=== PATIENT | female | born 1940 | race Caucasian/White ===

== ENCOUNTER → 2016-11-25 | Day surgery (SDC) | payer OTHER ==
[~2016-11-25] VITALS: Ht 157.5 cm; Wt 70.0 kg
[~2016-11-25] MED LIST: ALBUAER2 INH; AMIO200T4 PO; ASPI81TA28 PO; BACITRACIN 50000 UNIT VIAL ONE; BUPIVACAINE 0.5 % 5 MG/1 ML MPF 30ML VIAL ONE; CLINDAMYCIN 600 MG/54 ML D5W IV ONE; CLINDAMYCIN 600 MG/54 ML D5W IV SCH; COEN1CAP46 PO; DIGO0.2576 PO; DOXY100C2 PO; FENTANYL CITRATE INJ 50 MCG/1 ML 2 ML VIAL ONE; FLUO0.05 TOP; GLC/500 PO; GLIM4TAB2 PO; LIDOCAINE HCL 1% 20 ML VIAL ONE; LISI-461 PO; LOSA1TAB38 PO; METO25TA56 PO; MIDAZOLAM HCL 5 MG/ML 1 ML VIAL ONE; MULT-922 PO; NTRGSL/4 UT; OSEL75CA12 PO; POLY99.02 OP; SOTA160T PO; VNTHFA/IN INH; WARF2TAB8 PO; WARF3TAB6 PO
[2016-11-25 10:48] VITALS: BP 150/77; PULSE 77; TEMP 36.8; O2SAT 98; Ht 157.5 cm; Wt 70.0 kg
--- NOTE | 2016-11-25 13:40 | History & Physical Bridge Note ---
H&P Re-Evaluation Bridge Note: I have examined the patient, reviewed the History & Physical and in the interval since the performance of the History & Physical I have noted the following changes of clinical significance: No changes noted
--- NOTE | 2016-11-25 13:41 | Procedure Note ---
Pre-Mod Sedation Assessment General Date of Moderate Sedation: Nov 25, 2016. Vital Signs: Vital Signs Past 12 Hours Date Time Temp Pulse Resp B/P Pulse Ox O2 Delivery O2 Flow Rate FiO2 11/25/16 10:48 36.8 77 20 150/77 98 Room Air Review Cardiovascular: regular rate, rhythm Abdomen: soft Lungs: lungs clear Airway Class: II Pre-Sedation Airway Assessment Oral Cavity: Dentures Able to Visualize Vocal Cords: No Short Thick Neck: No Hx of Sleep Apnea: No Smoking Status: Never Smoker Mallampati Classification: Class II ASA Classification: Class I Procedure Planning Contraindications-for Mod Sed: None Yes Notes The planned sedation has been discussed with the patient and consent obtained. I have identified the patient, determined the appropriateness of sedation and have assessed the patient immediately prior to the procedure. All medicine(s) and interventions are by my order.
--- NOTE | 2016-11-25 14:42 | Procedure Note ---
Post-Mod Sedation Assessment General Date of Moderate Sedation Nov 25, 2016. Vital Signs: Vital Signs Past 12 Hours Date Time Temp Pulse Resp B/P Pulse Ox O2 Delivery O2 Flow Rate FiO2 11/25/16 10:48 36.8 77 20 150/77 98 Room Air Review - Discharge Criteria Vital Signs Stable: Yes Alert/Oriented/Conversant: Yes Returned to Baseline Mental St: Yes Nausea Absent/Minimal: Yes Pain/Discomfort/Absent/Minimal: Yes Normal/Baseline Respirations: Yes Active Bleeding?: No Pt Received D/C Instructions: N/A Prescriptions Given: None Specific Proced. D/C Criteria Distal Pulses Present (Cardiac: N/A Groin site assessed-Card Cath: N/A Voided Prior To Discharge: N/A Discharged Patients Adult Escort/Transportation: N/A
--- NOTE | 2016-11-25 14:44 | [facility] Post Operative Brief Note ---
Immediate Operative Summary Operative Date Nov 25, 2016. Pre-Operative Diagnosis ppm at JOAQUIN, tbs Post-Operative Diagnosis same Procedure(s) Performed dual chamber permament pacemaker rate responsive generator change Surgeon veronica baca Director Of Rooms Surgeon(s) none Estimated Blood Loss <5cc Findings none Fluids (cc crystalloids) 75cc Specimens none Drains none Anesthesia 3mg versed and 25mcg fentanyl Complication(s) None Disposition asu
--- NOTE | 2016-11-25 14:47 | Discharge Instructions ---
Discharge Instructions Visit Reason for Visit: Sinus Node Dysfunction Discharge Discharge Diagnosis / Problem: sss, ppm at [facility]gar Discharge Goals Goal(s): Improve function Activity Recommendations Activity Limitations: as noted below (no heavy lifting with the left arm for 2 weeks (>10 pounds)) Shower/Bathe: tomorrow Driving or Machine Use: resume 1 day after discharge Anesthesia . Post Anesthesia Instructions: If you have had General Anesthesia or IV Sedation: * Do not drive today. * Resume driving when surgeon permits. * Do not make important decisions or sign legal documents today. * Call surgeon for: 1. Temperature elevations greater than 101 degrees F. 2. Uncontrollable pain. 3. Excessive bleeding. 4. Persistent nausea and vomiting. 5. Medication intolerance (nausea, vomiting or rash). * For nausea and vomiting use only clear liquids such as: tea, soda, bouillon until nausea subsides, then gradually increase diet as tolerated. * If you have any concerns or questions, call your surgeon's office. If physician is unavailable and it is an emergency, call 911 or go to the nearest emergency room. . Diet Recommendations Recommended Home Diet: resume previous diet Procedures Procedures Performed: dual chamber permament pacemaker rate responsive generator change Pending Studies Studies pending at discharge: no Medical Emergencies . Who to Call and When: Medical Emergencies: If at any time you feel your situation is an emergency, please call 911 immediately. . Non-Emergent Contact Non-Emergency issues call your: Farm Tractor Operator . . "Provider Documentation" section prepared by Marci Deluca.
[2016-11-25 14:55] VITALS: BP 122/63; PULSE 77; TEMP 36.7; O2SAT 91
[2016-11-25 15:11] VITALS: BP 144/72; PULSE 78; TEMP 36.7; O2SAT 93
[2016-11-25 15:37] VITALS: BP 122/53; PULSE 74; TEMP 36.6; O2SAT 94
--- NOTE | 2016-11-25 15:38 | OPERATIVE REPORT ---
DATE OF OPERATION: 11/25/2016 PREOPERATIVE DIAGNOSES: Sick sinus syndrome and pacemaker at elective replacement indicator. POSTOPERATIVE DIAGNOSES: Same. PROCEDURE: Dual-chamber rate responsive permanent pacemaker generator change. SURGEON: Dr. Marci Deluca. REVENUE CYCLE MANAGER: None. ANESTHESIA: Monitored conscious sedation, total of 3 mg of Versed, 25 mcg of fentanyl. Start time 1405, end time 1432. BLOOD LOSS: Less than 5 mL. COMPLICATIONS: None. CONDITION: Stable. URINE OUTPUT: Not applicable. SPECIMENS: None. FINDINGS: None. DRAINS: None. IV FLUIDS: 75 mL. HISTORY OF PRESENT ILLNESS: This is a 76-year-old female who has a history of sick sinus syndrome, status post permanent pacemaker back in 2006, paroxysmal atrial fibrillation, on sotalol and Coumadin, but having refractory AFib on prior pacemaker checks; coronary artery disease, status post CABG in 2001 with a MARIE to LAD and SVG to circ, cardiac catheterization in January 2012, grafts were patent; diabetes, pulmonary hypertension, hyperlipidemia. On her most recent pacemaker check, she was found to hit JOAQUIN and was recommended a generator change. CONSENT: Consent was obtained prior to the patient going into the electrophysiology lab. The patient was informed of risks, benefits, alternatives to the procedure. Risks include but not limited to sudden cardiac , cardiac arrhythmias, cerebrovascular accident, myocardial infarction, injury to the blood vessels, bleeding and infection. The patient understood these risks and agreed to the procedure as planned. Informed consent was obtained. DESCRIPTION OF THE PROCEDURE: The patient was brought into the electrophysiology lab in a fasting state. She was connected to continuous monitoring engineer. A time-out was performed to ensure patient's identity and procedure correctly. The patient received prophylactic antibiotics prior to incision. She was prepped and draped over the left infraclavicular space in normal surgical standard fashion. Moderate conscious sedation was given throughout the procedure for patient's comfort level and universal precautions were maintained throughout the procedure. 3 mL of 1% lidocaine, bupivacaine mixture were given over the prior surgical incision. Incision was made over the prior surgical incision. Blunt dissection was performed down to identify to the prior pulse generator. The capsule was then disrupted using iris scissors. The pulse generator was freed from the capsule and removed from the pocket. The pulse generator was detached from the leads and the leads were tested intraoperatively, see below. The capsule was disrupted inferiorly and caudally to allow for new blood flow and then the pocket was flushed with copious amounts of bacitracin saline wash and inspected for hemostasis. The new pulse generator was attached to the leads making sure that the pins were in appropriate position, passed the set screws and the set screws were all tightened. The pulse generator was then placed in the pocket, making sure that the leads were lying flat beneath the device. Lenora Stat was used in the pocket to prevent any further oozing as patient is on aspirin and Coumadin. The incision was closed in a 3-layer fashion, 2-0 Vicryl interrupted suture followed by a 3-0 Vicryl interrupted suture followed by a 4-0 Monocryl running stitch and Dermabond was applied. EQUIPMENT: 1. Explanted generator is a N Rhythm [id number] serial #[id number], implanted 10/03/2007. Battery voltage 2.81. Hit JOAQUIN on 10/16/2016. 2. The new pulse generator is a Shuropody Advisa DR LIZZETTE Ramos [id number], serial # [id number]. 3. Right atrial lead, model #5076-45, serial number [id number]. 4. Right ventricular lead model #4092-52, serial number [id number]. Both were implanted 10/03/2007. INTRAOPERATIVE TESTING: Right atrial lead: P-wave 6 millivolts, impedance 535 ohms, threshold 0.6 volts at 0.9 milliamps. Right ventricular lead: R-wave waves 19 millivolts, impedance 579 ohms, threshold 0.9 volts at 1.6 milliamps. FINAL MEASUREMENTS THROUGH THE DEVICE: Right atrial lead: 6.6 millivolts, impedance 494 ohms, threshold 0.75 volts at 0.4 milliseconds. Right ventricular lead: R-wave 20 millivolts, impedance 456 ohms, threshold 1 volt at 0.4 milliseconds. FINAL PARAMETERS: MVP-R 60/130. Right atrial amplitude 1.5 volts, pulse width 0.4 milliseconds, sensitivity 0.3 millivolts. Right ventricular lead amplitude 2 volts, pulse width 0.4 milliseconds, sensitivity 1.2 millivolts, and atrial therapies were turned on. CONCLUSION: Successful rate responsive dual-chamber permanent pacemaker generator change secondary to sick sinus syndrome. PLAN: Monitor patient post-sedation. She can stop her Lasix. She should continue her amiodarone load and then decrease to 200 mg a day in 2 weeks. She can continue her Coumadin. She should have thyroid and liver function tests done in January after she has been on the amiodarone for a couple of months. She can shower in a day. She should let water run over the incision, do not scrub it and she should not lift more than 10 pounds with the left arm for 2 weeks. She should follow up in our [facility] office in 7-10 days for device and wound check. I attest to the content of the Intraoperative Record and any orders documented therein. Any exceptio ns are noted below.
[2016-11-25 16:09] VITALS: BP 128/55; PULSE 77; TEMP 36.7; O2SAT 95
== END | disposition home or self-care (01) ==
LOC: C.ACU 10:16
PROVIDERS: ATTEND Internal Medicine
DX: I49.5 Sick sinus syndrome (principal); I48.0 Paroxysmal atrial fibrillation; I10 Essential (primary) hypertension; I25.10 Atherosclerotic heart disease of native coronary artery without angina pectoris; E11.9 Type 2 diabetes mellitus without complications; I27.2 Other secondary pulmonary hypertension; E78.5 Hyperlipidemia, unspecified; E55.9 Vitamin D deficiency, unspecified; Z95.0 Presence of cardiac pacemaker; Z79.01 Long term (current) use of anticoagulants; Z95.1 Presence of aortocoronary bypass graft; Z79.899 Other long term (current) drug therapy

== ENCOUNTER 2016-12-18 18:10 | Emergency (ER) | payer OTHER ==
[~2016-12-18] VITALS: Ht 157.5 cm; Wt 70.2 kg
[~2016-12-18 18:10] MED LIST changes: -AMIO200T4 PO; -BACITRACIN 50000 UNIT VIAL ONE; -BUPIVACAINE 0.5 % 5 MG/1 ML MPF 30ML VIAL ONE; -CLINDAMYCIN 600 MG/54 ML D5W IV ONE; -CLINDAMYCIN 600 MG/54 ML D5W IV SCH; -DOXY100C2 PO; -FENTANYL CITRATE INJ 50 MCG/1 ML 2 ML VIAL ONE; -LIDOCAINE HCL 1% 20 ML VIAL ONE; -LISI-461 PO; -LOSA1TAB38 PO; -MIDAZOLAM HCL 5 MG/ML 1 ML VIAL ONE; -OSEL75CA12 PO; -SOTA160T PO; -VNTHFA/IN INH
[2016-12-18 18:17] VITALS: TEMP 36.4; Ht 157.5 cm; Wt 70.2 kg
[2016-12-18 20:03] LABS: BASO % 0.5 %; BASO ABS # 0.04 K/uL (0-0.2); COMPLETE YES; EOS % 1.6 %; HEMATOCRIT 39.7 % (37-47); IG% 0.1 %; LYMPH % 35.7 %; LYMPH ABS # 2.66 K/uL (1.2-3.4); MEAN CELL VOLUME 85.4 fL (80-100); MEAN CORPUSCULAR HEMOGLOBIN 29.7 pg (25-34); MEAN CORPUSCULAR HGB CONC 34.8 g/dl (32-36); MEAN PLATELET VOLUME 10.4 fL (7.4-10.4); MONO % 8.5 %; NEUT % 53.6 %; PLATELET COUNT 229 K/uL (130-400); RED BLOOD COUNT 4.65 M/uL (4.2-5.4); WHITE BLOOD COUNT 7.45 K/uL (4.8-10.8)
[2016-12-18] MEDS ORDERED: AMIO200T4 PO (20:06)
[2016-12-18] MEDS ORDERED: LOSA1TAB38 PO (20:06)
[2016-12-18 20:11] LABS: INR 2.1 (0.9-1.1); PARTIAL THROMBOPLASTIN RATIO 1.3
[2016-12-18 20:20] LABS: CREATININE 0.95 mg/dl (0.60-1.20); POTASSIUM 3.9 mmol/L (3.5-5.1)
[2016-12-18 20:23] LABS: ALB/GLOB RATIO 0.9 (0.9-2)
[2016-12-18 20:55] VITALS: BP 128/79
[2016-12-18 21:46] VITALS: PULSE 74; O2SAT 98
--- NOTE | 2016-12-18 23:25 | EMERGENCY ROOM VISIT NOTE ---
History Report prepared by Salvador: Elvira Marks Under the Supervision of: Dr. Keith Celeste M.D. First contact with patient: 19:14 Chief Complaint: WOUND DEHISCENCE Stated Complaint: S/P PACEMAKER CHANGE, SITE IS BLEEDING Nursing Triage Summary: Patient had recent pacemaker placed, incision is leaking dark red blood, patient has multipple soaked dressings, sterile dressing applied with pight pressure. History of Present Illness The patient is a 76 year old female who presents to the Emergency Room with complaints of constant bleeding from surgical site beginning 2 hours prior to arrival. Per the patient and her , the patient had pacemaker placed on November 25, 2016 at [facility]. The patient is experiencing bleeding from the incision and also swelling to the left upper chest around the surgical site. She is currently on Coumadin and Warfarin. She does note that she recently had medication changes due to having side effects. Pt denies LOC, headache, fevers, chills, diaphoresis, visual changes, neck pain, chest pain, breathing difficulties, nausea, vomiting, abdominal pain, back pain, melena, hematochezia, urinary symptoms, numbness, weakness, lymphadenopathy, rash, or other complaints. Source of History: patient Onset: 2 hours SHIP SCALER Position: other (surgical site) Quality: other (bleeding) Timing: constant Associated Symptoms: No LOC, No abdominal pain, No headache, No nausea, No vomiting Review of Systems See HPI for pertinent positives and negatives. A total of ten systems were reviewed and were otherwise negative. Past Medical & Surgical Medical Problems: (1) CAD (coronary artery disease) (2) DM type 2 (diabetes mellitus, type 2) (3) HTN (hypertension) (4) Hyperlipidemia (5) Paroxysmal atrial fibrillation (6) Tachy-aylin syndrome Surgical Problems: (1) H/O: hysterectomy (2) Hx of appendectomy (3) Hx of CABG (4) s/p pacemaker insertion Family History Diabetes mellitus AUNT UNCLE Gallbladder disease Heart disease MOTHER Hypertension Social History Smoking Status: Never Smoker Alcohol Use: occasionally Drug Use: none Marital Status: Housing Status: lives with significant other Occupation Status: retired Current/Historical Medications Scheduled Amiodarone Hcl (Cordarone), 200 MG PO QAM Aspirin (Aspirin Ec), 81 MG PO QAM Glimepiride (Glimepiride), 1 TAB PO UD Losartan Potassium (Cozaar), 100 MG PO DAILY Metformin Hcl (Glucophage), 500 MG PO BIDM Metoprolol Tartrate (Lopressor) (Lopressor), 25 MG PO BID Nitroglycerin (Nitrostat), 0.4 MG UT PRN Warfarin Sod (Jantoven), 2 MG PO 5XWK Warfarin Sod (Jantoven), 3 MG PO 2XWK Scheduled PRN Albuterol (Ventolin Hfa), 1-2 PUFFS INH Q4 PRN for SOB/Wheezing Allergies Coded Allergies: Cefazolin (Verified Allergy, Unknown, CEPHALEXIN-PT DOESN'T REMEMBER WHAT HAPPENED, 12/18/16) Tetanus Toxoid (Verified Allergy, Unknown, LOCAL REACTION/FEVER, 12/18/16) Oxycodone (Verified Adverse Reaction, Unknown, NAUSEA/STOMACH PAINS, ) Physical Exam Vital Signs Date Time Temp Pulse Resp B/P Pulse Ox O2 Delivery O2 Flow Rate FiO2 12/18/16 21:46 74 17 98 12/18/16 20:55 72 128/79 96 Room Air 12/18/16 18:17 36.4 63 18 193/82 97 Room Air Physical Exam GENERAL: Awake, alert, well-appearing, in no distress HENT: Normocephalic, atraumatic. Oropharynx unremarkable. EYES: Normal conjunctiva. Sclera non-icteric. NECK: Supple. No nuchal rigidity. FROM. No JVD. RESPIRATORY: Clear to auscultation. CARDIAC: Regular rate, normal rhythm. Extremities warm and well perfused. Pulses equal. ABDOMEN: Soft, non-distended. No tenderness to palpation. No rebound or guarding. No masses. RECTAL: Deferred. MUSCULOSKELETAL: Chest examination reveals pacemaker to left upper chest with dark blood oozing from lateral aspect of the surgical incision. The back is symmetrical on inspection without obvious abnormality. There is no CVA tenderness to palpation. No joint edema. LOWER EXTREMITIES: Calves are equal size bilaterally and non-tender. No edema. No discoloration. NEURO: Normal sensorium. No sensory or motor deficits noted. SKIN: No rash or jaundice noted. Medical Decision & Procedures Laboratory Results 12/18/16 19:48 Red Blood Count 4.65, Mean Corpuscular Volume 85.4, Mean Corpuscular Hemoglobin 29.7, Mean Corpuscular Hemoglobin Concent 34.8, Mean Platelet Volume 10.4, Neutrophils (%) (Auto) 53.6, Lymphocytes (%) (Auto) 35.7, Monocytes (%) (Auto) 8.5, Eosinophils (%) (Auto) 1.6, Basophils (%) (Auto) 0.5, Neutrophils # (Auto) 3.99, Lymphocytes # (Auto) 2.66, Monocytes # (Auto) 0.63, Eosinophils # (Auto) 0.12, Basophils # (Auto) 0.04 12/18/16 19:48 Test 12/18/16 19:48 White Blood Count 7.45 K/uL (4.8-10.8) Red Blood Count 4.65 M/uL (4.2-5.4) Hemoglobin 13.8 g/dL (12.0-16.0) Hematocrit 39.7 % (37-47) Mean Corpuscular Volume 85.4 fL (80-100) Mean Corpuscular Hemoglobin 29.7 pg (25-34) Mean Corpuscular Hemoglobin Concent 34.8 g/dl (32-36) Platelet Count 229 K/uL (130-400) Mean Platelet Volume 10.4 fL (7.4-10.4) Neutrophils (%) (Auto) 53.6 % Lymphocytes (%) (Auto) 35.7 % Monocytes (%) (Auto) 8.5 % Eosinophils (%) (Auto) 1.6 % Basophils (%) (Auto) 0.5 % Neutrophils # (Auto) 3.99 K/uL (1.4-6.5) Lymphocytes # (Auto) 2.66 K/uL (1.2-3.4) Monocytes # (Auto) 0.63 K/uL (0.11-0.59) Eosinophils # (Auto) 0.12 K/uL (0-0.5) Basophils # (Auto) 0.04 K/uL (0-0.2) RDW Standard Deviation 45.0 fL (36.4-46.3) RDW Coefficient of Variation 14.6 % (11.5-14.5) Immature Granulocyte % (Auto) 0.1 % Immature Granulocyte # (Auto) 0.01 K/uL (0.00-0.02) Prothrombin Time 23.0 SECONDS (9.0-12.0) Prothromb Time International Ratio 2.1 (0.9-1.1) Activated Partial Thromboplast Time 34.4 SECONDS (21.0-31.0) Partial Thromboplastin Ratio 1.3 Anion Gap 6.0 mmol/L (3-11) Est Creatinine Clear Calc Drug Dose 47.7 ml/min Estimated GFR () 68.4 Estimated GFR (Non- 59.0 BUN/Creatinine Ratio 20.0 (10-20) Calcium Level 9.0 mg/dl (8.5-10.1) Total Bilirubin 0.4 mg/dl (0.2-1) Aspartate Amino Transf (AST/SGOT) 44 U/L (15-37) Alanine Aminotransferase (ALT/SGPT) 67 U/L (12-78) Alkaline Phosphatase 54 U/L (45-117) Total Protein 7.8 gm/dl (6.4-8.2) Albumin 3.6 gm/dl (3.4-5.0) Globulin 4.2 gm/dl (2.5-4.0) Albumin/Globulin Ratio 0.9 (0.9-2) Laboratory results reviewed by ma ED Course 1924: The patient was evaluated in room A10. A complete history and physical exam was performed. 2105: I reevaluated the patient. 2111: I spoke with Dr. Perry Jaime about the patient. He would like sterile dressing applied and for the patient to follow up in the office tomorrow. 2134: I reevaluated the patient. Discussed results and discharge instructions: She verbalized understanding and agreement. The patient is ready for discharge. Medical Decision The patient was evaluated. Differential includes hematoma, seroma, infection, coagulopathy, as well as others. The patient appears to have a dark blood coming out without signs of purulence. There is no surrounding erythema or warmth. The pacemaker pocket feels enlarged, consistent with a hematoma. With simple pressure additional dark blood was expressed. Blood work was obtained. The patient has no leukocytosis. Her chem panel was unremarkable. Coagulation studies revealed therapeutic INR. I did place a sterile pressure dressing over the area. I did consult with cardiology. Conservative management was discussed. No antibiotics were recommended. The patient will be seen tomorrow in the office. When I discussed this with the patient she noted having a scheduled appointment tomorrow morning with cardiology. I did outline the findings and the patient felt comfortable with conservative management. Return instructions were outlined. The patient was discharged in stable condition. Consults Time Called: 2109 Consulting Physician: Dr. Perry Jaime Returned Call: [address] Perry Jaime about the patient. He would like sterile dressing applied and for the patient to follow up in the office tomorrow. Impression Primary Impression: Hematoma of left chest wall Scribe Attestation The scribe's documentation has been prepared under my direction and personally reviewed by me in its entirety. I confirm that the note above accurately reflects all work, treatment, procedures, and medical decision making performed by me. Departure Information Dispostion Home / Self-Care Referrals Gely De La Vega M.D. (PCP) Forms HOME CARE DOCUMENTATION FORM, IMPORTANT VISIT INFORMATION, WORK / SCHOOL INSTRUCTIONS Patient Instructions My [facility] Additional Instructions Diagnoses: 1. Chest wall hematoma To keep the area covered with a sterile dressing. If it becomes saturated or dirty change the dressing as discussed. Warm compresses for 20 minutes at a time four times daily for 2-3 days. Follow up with [facility] cardiology as scheduled tomorrow. Return to the ER immediately for spreading redness, fevers, pus-like drainage, severe pain, or as needed.
== END 2016-12-18 21:47 | disposition home or self-care (01) ==
LOC: C.EDB 18:12 → C.EDA 21:47
DX: T81.30XA Disruption of wound, unspecified, initial encounter (principal); Y83.9 Surgical procedure, unspecified as the cause of abnormal reaction of the patient, or of later complication, without mention of misadventure at the time of the procedure; I25.10 Atherosclerotic heart disease of native coronary artery without angina pectoris; E11.9 Type 2 diabetes mellitus without complications; I10 Essential (primary) hypertension; E78.5 Hyperlipidemia, unspecified; I48.0 Paroxysmal atrial fibrillation; Z90.710 Acquired absence of both cervix and uterus; Z79.01 Long term (current) use of anticoagulants

== ENCOUNTER 2017-01-08 21:30 | Emergency (ER) | payer OTHER ==
[~2017-01-08] VITALS: Ht 157.5 cm; Wt 70.5 kg
[~2017-01-08 21:30] MED LIST changes: +AMIO200T4 PO; -COEN1CAP46 PO; -DIGO0.2576 PO; -FLUO0.05 TOP; +LOSA1TAB38 PO; -MULT-922 PO; -POLY99.02 OP
[2017-01-08] MEDS ORDERED: ACETAMINOPHEN 500 MG TAB PO ONE (21:47)
[2017-01-08] MEDS ORDERED: SODIUM CHLORIDE 0.9% 1000ML 1,000 ML IV STA (21:56)
[2017-01-08 22:06] VITALS: O2SAT 97; Ht 157.5 cm; Wt 70.5 kg
[2017-01-08 22:24] LABS: BASO % 0.1 %; BASO ABS # 0.01 K/uL (0-0.2); COMPLETE YES; EOS % 0.3 %; HEMATOCRIT 37.9 % (37-47); IG% 0.1 %; LYMPH % 10.9 %; LYMPH ABS # 0.78 K/uL (1.2-3.4); MEAN CELL VOLUME 83.7 fL (80-100); MEAN CORPUSCULAR HEMOGLOBIN 28.9 pg (25-34); MEAN CORPUSCULAR HGB CONC 34.6 g/dl (32-36); MONO % 10.5 %; NEUT % 78.1 %; PLATELET COUNT 179 K/uL (130-400); RED BLOOD COUNT 4.53 M/uL (4.2-5.4); WHITE BLOOD COUNT 7.14 K/uL (4.8-10.8)
[2017-01-08 22:40] LABS: ALT/SGPT 60 U/L (12-78); BLOOD UREA NITROGEN 12 mg/dl (7-18); BUN/CREATININE RATIO 13.8 (10-20); CALCIUM 8.5 mg/dl (8.5-10.1); CARBON DIOXIDE 24 mmol/L (21-32); CHLORIDE 96 mmol/L (98-107); CREATININE 0.86 mg/dl (0.60-1.20); GLUCOSE 121 mg/dl (70-99); MAGNESIUM 1.6 mg/dl (1.8-2.4); SODIUM 130 mmol/L (136-145)
[2017-01-08 22:43] LABS: INR 1.5 (0.9-1.1); PARTIAL THROMBOPLASTIN RATIO 1.3; PROTHROMBIN TIME (PATIENT) 16.5 SECONDS (9.0-12.0)
[2017-01-08 22:49] LABS: ALKALINE PHOSPHATASE 45 U/L (45-117); AST/SGOT 42 U/L (15-37)
--- NOTE | 2017-01-08 22:53 | DIAGNOSTIC IMAGING REPORT ---
CHEST ONE VIEW PORTABLE CLINICAL HISTORY: EVALUATE WEAKNESS dyspnea COMPARISON STUDY: 05/15/2016 FINDINGS: Permanent bipolar cardiac pacemaker. Prior median sternotomy. Lungs are clear. IMPRESSION: Negative chest. Electronically signed by: Dayton Ferro M.D. 01/08/2017 10:51 PM Dictated Date/Time: 01/08/2017 10:51 PM
[2017-01-08] MEDS ORDERED: VNTHFA/IN INH (23:20)
[2017-01-09] MEDS ORDERED: SODIUM CHLORIDE 0.9% 500ML 500 ML IV STA
[2017-01-09 00:10] VITALS: TEMP 37.2
[2017-01-09] MEDS ORDERED: OSELTAMIVIR PHOSPHATE 75 MG CAP PO STA (01:05)
[2017-01-09 01:22] VITALS: BP 126/70; PULSE 99; O2SAT 98
[2017-01-09] MEDS ORDERED: OSEL75CA12 PO (01:41)
--- NOTE | 2017-01-09 03:41 | EMERGENCY ROOM VISIT NOTE ---
History Report prepared by Salvador: Bryan Cleary Under the Supervision of: Dr. Keith Celeste M.D. First contact with patient: 21:56 Chief Complaint: FLU LIKE SX Stated Complaint: COLD, TROUBLE BREATHING, COUGH History of Present Illness The patient is a 76 year old female who presents to the Emergency Room with complaints of a persistent cough and weakness that began three days prior to arrival. The patient denies any chest pain with her cough, but she has been experiencing a headache. She has an extensive history of pneumonia and has had multiple bouts within the past year. She recently traveled to [place] and went through multiple airports. Pt denies LOC, diaphoresis, visual changes, neck pain , chest pain without coughing, nausea, vomiting, abdominal pain, back pain, melena, hematochezia, urinary symptoms, numbness, lymphadenopathy, rash, or other complaints. 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 A total of ten systems were reviewed and were otherwise negative. Past Medical & Surgical Medical Problems: (1) CAD (coronary artery disease) (2) DM type 2 (diabetes mellitus, type 2) (3) HTN (hypertension) (4) Hyperlipidemia (5) Paroxysmal atrial fibrillation (6) Tachy-aylin syndrome Surgical Problems: (1) H/O: hysterectomy (2) Hx of appendectomy (3) Hx of CABG (4) s/p pacemaker insertion Family History Diabetes mellitus AUNT UNCLE Gallbladder disease Heart disease MOTHER Hypertension Social History Smoking Status: Never Smoker Alcohol Use: occasionally Drug Use: none Marital Status: Housing Status: lives with significant other Occupation Status: retired Current/Historical Medications Scheduled Amiodarone Hcl (Cordarone), 200 MG PO QAM Aspirin (Aspirin Ec), 81 MG PO QAM Glimepiride (Glimepiride), 1 TAB PO UD Losartan Potassium (Cozaar), 100 MG PO DAILY Metformin Hcl (Glucophage), 500 MG PO BIDM Metoprolol Tartrate (Lopressor) (Lopressor), 25 MG PO BID Nitroglycerin (Nitrostat), 0.4 MG UT PRN Oseltamivir (Tamiflu), 75 MG PO BID Warfarin Sod (Jantoven), 2 MG PO 5XWK Warfarin Sod (Jantoven), 3 MG PO 2XWK Scheduled PRN Albuterol Hfa (Ventolin Hfa), 1-2 PUFFS INH Q4 PRN for SOB/Wheezing Allergies Coded Allergies: Cefazolin (Verified Allergy, Unknown, CEPHALEXIN-PT DOESN'T REMEMBER WHAT HAPPENED, 01/08/17) Tetanus Toxoid (Verified Allergy, Unknown, LOCAL REACTION/FEVER, 12/18/16) Oxycodone (Verified Adverse Reaction, Unknown, NAUSEA/STOMACH PAINS, ) Physical Exam Vital Signs Date Time Temp Pulse Resp B/P Pulse Ox O2 Delivery O2 Flow Rate FiO2 01/09/17 01:22 99 18 126/70 98 Room Air 01/09/17 00:10 37.2 97 18 132/71 94 Room Air 01/08/17 23:15 93 18 120/76 97 Room Air 01/08/17 22:06 97 Room Air 01/08/17 21:58 91 01/08/17 21:39 39.4 104 22 152/78 94 Room Air Physical Exam GENERAL: Awake, alert, mildly ill appearing, no distress HEAD: Normocephalic, atraumatic. No edema. EYES: Normal conjunctiva. Sclera non-icteric. NOSE: Mild congestion. OROPHARYNX: Lips, tongue, and mucosa unremarkable. No erythema or exudate. NECK: Supple. No nuchal rigidity. FROM. No adenopathy. Negative jolt accentuation test. RESPIRATORY: CTA bilaterally. No wheezes rales or rhonchi. CARDIAC: Borderline tachycardic rate, irregular rhythm. ABDOMEN: Soft, non distended. No tenderness to palpation. NEURO: Normal sensorium. SKIN: No rash or jaundice noted Medical Decision & Procedures ER Provider Diagnostic Interpretation: X ray results as stated below per my interpretation and radiologist interpretation. Other radiology results as stated below per my review and radiologist interpretation CHEST ONE VIEW PORTABLE CLINICAL HISTORY: EVALUATE WEAKNESS dyspnea COMPARISON STUDY: 05/15/2016 FINDINGS: Permanent bipolar cardiac pacemaker. Prior median sternotomy. Lungs are clear. IMPRESSION: Negative chest. Electronically signed by: Dayton Ferro M.D. 01/08/2017 10:51 PM Dictated Date/Time: 01/08/2017 10:51 PM Laboratory Results 01/08/17 22:06 Red Blood Count 4.53, Mean Corpuscular Volume 83.7, Mean Corpuscular Hemoglobin 28.9, Mean Corpuscular Hemoglobin Concent 34.6, Mean Platelet Volume 10.0, Neutrophils (%) (Auto) 78.1, Lymphocytes (%) (Auto) 10.9, Monocytes (%) (Auto) 10.5, Eosinophils (%) (Auto) 0.3, Basophils (%) (Auto) 0.1, Neutrophils # (Auto ) 5.57, Lymphocytes # (Auto) 0.78, Monocytes # (Auto) 0.75, Eosinophils # (Auto ) 0.02, Basophils # (Auto) 0.01 01/08/17 22:06 Test 01/08/17 21:56 01/08/17 22:06 01/08/17 22:28 Influenza Type A Antigen Neg for Influ A (NEG) Influenza Type B Antigen POS for Influ B (NEG) White Blood Count 7.14 K/uL (4.8-10.8) Red Blood Count 4.53 M/uL (4.2-5.4) Hemoglobin 13.1 g/dL (12.0-16.0) Hematocrit 37.9 % (37-47) Mean Corpuscular Volume 83.7 fL (80-100) Mean Corpuscular Hemoglobin 28.9 pg (25-34) Mean Corpuscular Hemoglobin Concent 34.6 g/dl (32-36) Platelet Count 179 K/uL (130-400) Mean Platelet Volume 10.0 fL (7.4-10.4) Neutrophils (%) (Auto) 78.1 % Lymphocytes (%) (Auto) 10.9 % Monocytes (%) (Auto) 10.5 % Eosinophils (%) (Auto) 0.3 % Basophils (%) (Auto) 0.1 % Neutrophils # (Auto) 5.57 K/uL (1.4-6.5) Lymphocytes # (Auto) 0.78 K/uL (1.2-3.4) Monocytes # (Auto) 0.75 K/uL (0.11-0.59) Eosinophils # (Auto) 0.02 K/uL (0-0.5) Basophils # (Auto) 0.01 K/uL (0-0.2) RDW Standard Deviation 44.2 fL (36.4-46.3) RDW Coefficient of Variation 14.4 % (11.5-14.5) Immature Granulocyte % (Auto) 0.1 % Immature Granulocyte # (Auto) 0.01 K/uL (0.00-0.02) Prothrombin Time 16.5 SECONDS (9.0-12.0) Prothromb Time International Ratio 1.5 (0.9-1.1) Activated Partial Thromboplast Time 34.5 SECONDS (21.0-31.0) Partial Thromboplastin Ratio 1.3 Anion Gap 10.0 mmol/L (3-11) Est Creatinine Clear Calc Drug Dose 52.8 ml/min Estimated GFR () 77.1 Estimated GFR (Non- 66.6 BUN/Creatinine Ratio 13.8 (10-20) Calcium Level 8.5 mg/dl (8.5-10.1) Magnesium Level 1.6 mg/dl (1.8-2.4) Total Bilirubin 0.4 mg/dl (0.2-1) Direct Bilirubin 0.1 mg/dl (0-0.2) Aspartate Amino Transf (AST/SGOT) 42 U/L (15-37) Alanine Aminotransferase (ALT/SGPT) 60 U/L (12-78) Alkaline Phosphatase 45 U/L (45-117) Total Creatine Kinase 56 U/L (26-192) Creatine Kinase MB < 0.5 ng/ml (0.5-3.6) Creatine Kinase MB Ratio (0-3.0) Troponin I < 0.015 ng/ml (0-0.045) Total Protein 7.7 gm/dl (6.4-8.2) Albumin 3.6 gm/dl (3.4-5.0) Lipase 127 U/L (73-393) Thyroid Stimulating Hormone (TSH) 1.050 uIu/ml (0.300-4.500) Bedside Lactic Acid Venous 1.92 mmol/L (0.90-1.70) Laboratory results reviewed by me Medications Administered Medications (Trade) Dose Ordered Sig/Henrietta Route Start Time Stop Time Status Last Admin Dose Admin Acetaminophen 1000 mg 1,000 mg STK-MED ONCE PO 01/08/17 21:47 01/08/17 21:51 DC 01/08/17 21:47 500 MG Sodium Chloride 1,000 ml @ 125 mls/hr Q8H STAT IV 01/08/17 21:56 3/20/17 03:18 DC 01/08/17 23:14 125 MLS/HR Sodium Chloride (Nss 500ml) 500 ml @ 999 mls/hr Q31M STAT IV 01/09/17 00:00 01/09/17 00:30 DC 01/09/17 00:07 999 MLS/HR Oseltamivir Phosphate (Tamiflu Cap) 75 mg NOW STAT PO 01/09/17 01:05 01/09/17 01:06 DC 01/09/17 01:22 75 MG ECG Indication: weakness Rate (beats per minute): 96 Rhythm: atrial flutter Findings: no acute ischemic change, no ectopy ED Course 2146: Ordered Acetaminophen 1000 mg PO. 2155: Ordered Sodium Chloride 1000 mL @ 125 mL/hr IV. 2257: The patient was evaluated in room A11. A complete history and physical exam was performed. 0000: Ordered Sodium Chloride 500 mL @ 999 mL/hr IV. 0105: Ordered Tamiflu 75 mg PO. 0011: I reevaluated the patient, She is feeling well. Discussed results and discharge instructions: She verbalized understanding and agreement. The patient is ready for discharge. Medical Decision Prior records/ancillary studies reviewed. Triage Nursing notes reviewed and agree them. Additional history obtained from her . The patient's history was concerning for fever. Differential diagnosis: Etiologies such as influenza, pneumonia,,otitis, pharyngitis, meningitis, urinary tract infection, sepsis, bacteremia, viral syndrome, as well as others were entertained. Physical examination: As above. ER treatment provided: IV saline Oral Tamiflu Oral Tylenol On reassessment the patient felt better. Diagnostics interpreted by me: ECG: A. fib as above The labs revealed the patient has an unremarkable CBC. Her chemistry panel was negative. INR revealed a slightly subtherapeutic INR. Her troponin and TSH were negative. Lactate was minimally elevated. The patient had influenza B on testing. Imaging studies: Chest x-ray revealed no evidence of pneumonia. The patient has influenza. After the above treatment she felt much better. She has no evidence of pneumonia. I did discuss warning signs and symptoms. If she worsens in any way she will come back to the Emergency Room. She will need close outpatient follow-up.I gave my usual and customary discussion regarding this issue. By the evaluation outlined above emergent etiologies such as otitis, pharyngitis, pneumonia, meningitis, urinary tract infection, sepsis, bacteremia , as well as others were deemed relatively unlikely. The patient and were informed about the findings as listed above. All questions were answered and they were pleased with the treatment. Return instructions were outlined and the patient was discharged in stable condition. Outpatient prescription management: Tamiflu Referral: The patient was referred back to her primary care physician for follow-up in 2 to 3 days for a recheck of the current condition. The chart was completed utilizing [employer] Speech voice recognition software. Grammatical errors, random word insertions, pronoun errors, and incomplete sentences are an occasional consequence of this system due to software limitations, ambient noise, and hardware issues. Any formal questions or concerns about the content, text, or information contained within the body of this dictation should be directly addressed to the physician for clarification. Impression Primary Impression: Influenza B Scribe Attestation The scribe's documentation has been prepared under my direction and personally reviewed by me in its entirety. I confirm that the note above accurately reflects all work, treatment, procedures, and medical decision making performed by me. Departure Information Dispostion Home / Self-Care Prescriptions Oseltamivir (Tamiflu) 75 Mg Cap 75 MG PO BID, #9 CAP Prov: Keith Celeste MD 01/09/17 Referrals Gely De La Vega M.D. (PCP) Forms HOME CARE DOCUMENTATION FORM, IMPORTANT VISIT INFORMATION Patient Instructions My [facility] Additional Instructions Diagnosis: Influenza Acetaminophen(Tylenol) may be used for fever or pain. Use 1000mg every six hours as needed. Avoid using more than 4000mg in a 24 hour period. (AND/OR) Ibuprofen(Motrin, Advil) may be used for fever or pain. Use 600mg every six hours as needed. Take with food. Avoid using more than 2400mg in a 24 hour period. Do not use 2400mg per day for more than three consecutive days without physician direction. Prolonged inappropriate use can lead to stomach upset or ulcers. Albuterol Inhaler: Take 2 puffs four times daily for seven days, then as needed. Tamiflu 75 mg twice daily for 5 days. Review the package insert for all your medications. This is necessary as important health information is provided for your benefit and current care. Rest and drink plenty of fluids. Controlling your fever with Tylenol and Ibuprofen as above will make you feel better. Wash your hands after nose blowing, sneezing, or coughing. Most germs are spread through contact, therefore improper hygiene may result in your close contacts and loved ones becoming ill just like you. Return to the ER for severe headache, neck stiffness, chest pain, difficulty breathing, fevers, vomiting, worsening of your condition, or as needed. Follow up with your primary physician this week for a recheck of your current condition.
== END 2017-01-09 01:51 | disposition home or self-care (01) ==
LOC: C.EDB 21:31 → C.EDA 01-09 01:51
DX: J11.1 Influenza due to unidentified influenza virus with other respiratory manifestations (principal); R05 Cough; I25.10 Atherosclerotic heart disease of native coronary artery without angina pectoris; I10 Essential (primary) hypertension; E11.9 Type 2 diabetes mellitus without complications; Z95.1 Presence of aortocoronary bypass graft; I48.0 Paroxysmal atrial fibrillation; Z79.899 Other long term (current) drug therapy; Z79.01 Long term (current) use of anticoagulants; Z95.0 Presence of cardiac pacemaker

== ENCOUNTER 2020-08-31 15:12 | Inpatient (IN) ==
--- NOTE | 2020-08-31 15:40 | Emergency Department Note ---
History of Present Illness General Chief complaint: Shortness of Breath/Dyspnea Stated complaint: SOB Time Seen by Provider: 08/31/20 15:19 History of Present Illness This is a 80-year-old female that presents to the emergency department via private vehicle with complaints "shortness of breath". The patient that she has been "miserable" for a while and short of breath as well. She is unsure on the duration of feeling short of breath and is unable to decide if this has been going on for days, weeks or months. She notes a history of atrial fibrillation. She denies any chest pain, fevers, chills, loss of taste or smell or cough. She does feel tired. No nausea or vomiting. She is concerned about COVID-19 noting her symptoms. Patient notes she is currently on Coumadin and has been compliant with this medication. Home Medications Home Medications Medication Instructions Recorded Confirmed Type cholecalciferol (vitamin D3) 125 5,000 units PO DAILY 06/25/19 08/31/20 History mcg (5,000 unit) capsule glimepiride 1 mg tablet 2 mg PO QAM tab 06/25/19 08/31/20 History losartan 100 mg tablet 100 mg PO DAILY 06/25/19 08/31/20 History metoprolol tartrate 50 mg tablet 50 mg PO BID tab 06/25/19 08/31/20 History nitroglycerin 0.4 mg sublingual 0.4 mg SL DIRECTED PRN 06/25/19 08/31/20 History tablet rosuvastatin 20 mg tablet 20 mg PO HS 06/25/19 08/31/20 History warfarin 2 mg tablet 2 mg PO DIRECTED tab 06/25/19 08/31/20 History gabapentin 300 mg capsule 300 mg PO TID #90 cap 07/30/19 08/31/20 Rx furosemide 20 mg tablet See Rx Instructions .ROUTE 10/24/19 08/31/20 History .COMPLEX tab empagliflozin [Jardiance] 25 mg PO DAILY 08/31/20 08/31/20 History metformin See Rx Instructions .ROUTE .COMPLEX 08/31/20 08/31/20 History potassium chloride See Rx Instructions .ROUTE .COMPLEX 08/31/20 08/31/20 History Allergies Allergy/AdvReac Type Severity Reaction Status Date / Time cefazolin Allergy Unknown CEPHALEXIN-PT Verified 10/24/19 13:55 DOESN'T REMEMBER WHAT HAPPENED tetanus toxoid, adsorbed Allergy Unknown LOCAL Verified 10/24/19 13:55 REACTION/FEVER oxycodone AdvReac Unknown NAUSEA/STOMACH Verified 10/24/19 13:55 PAINS Past Med/Surg History Medical History (Updated 08/31/20 @ 23:43 by Dalton Baptiste PA-C) 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 Cardiac pacemaker Chronic anticoagulation Coronary atherosclerosis DISH (diffuse idiopathic skeletal hyperostosis) Dyslipidemia HTN (hypertension) Hyponatremia IBS (irritable bowel syndrome) Low back pain Pulmonary HTN Type 2 diabetes mellitus Surgical History Aortocoronary bypass status Hx of CABG Family History (Updated 12/23/19 @ 18:28 by Lilly Lopez) Other No pertinent family history in first degree relatives Social History Smoking Status: Never smoker Hx Alcohol Use: No Hx Substance Use: No Preferred Language: Irish Communication Ability: Effective Visual Impairment: No Limitations Hearing Ability: Normal Beliefs That Will Affect Care: None marital status: Current Living Situation: Spouse current occupational status: retired Feels Safe at Home: Yes Review of Systems A total of 10 systems reviewed and were otherwise negative Physical Exam Vital Signs Vital Signs - 24 hr 08/31/20 15:14 08/31/20 15:30 08/31/20 15:45 Temperature Temperature Source Pulse Rate 124 H 132 H 179 H Pulse Rate [Apical] Pulse Rate from SpO2 Sensor 139 H 173 H Pulse Rhythm [Apical] Respiratory Rate 24 21 18 Respiratory Effort / Characteristics Respiratory Depth Respiratory Pattern Blood Pressure 173/94 H 162/100 H Blood Pressure [Right Arm] Blood Pressure Mean 120 127 Blood Pressure Mean [Right Arm] Pulse Oximetry 96 95 93 Oxygen Delivery Method Room Air Room Air Oxygen Flow Rate Sepsis Recent Fever Within 48 Hours No Sepsis New/Unexplained Change in Mental Status No Sepsis Action Taken by Nursing No Action Required 08/31/20 16:00 08/31/20 16:15 08/31/20 16:25 Temperature Temperature Source Pulse Rate 132 H Pulse Rate [Apical] Pulse Rate from SpO2 Sensor 134 H Pulse Rhythm [Apical] Respiratory Rate 15 Respiratory Effort / Characteristics Non-Labored Spontaneous Respiratory Depth Normal Respiratory Pattern Regular Blood Pressure Blood Pressure [Right Arm] Blood Pressure Mean Blood Pressure Mean [Right Arm] Pulse Oximetry 97 Oxygen Delivery Method Room Air Room Air Oxygen Flow Rate Sepsis Recent Fever Within 48 Hours Sepsis New/Unexplained Change in Mental Status Sepsis Action Taken by Nursing 08/31/20 16:30 08/31/20 16:41 08/31/20 16:45 Temperature 37.7 C H Temperature Source Oral Pulse Rate 104 H 102 H Pulse Rate [Apical] 85 Pulse Rate from SpO2 Sensor 100 H 84 Pulse Rhythm [Apical] Irregular Respiratory Rate 22 18 12 Respiratory Effort / Characteristics Respiratory Depth Respiratory Pattern Blood Pressure 126/66 Blood Pressure [Right Arm] Blood Pressure Mean 101 Blood Pressure Mean [Right Arm] Pulse Oximetry 96 97 Oxygen Delivery Method Room Air Room Air Room Air Oxygen Flow Rate Sepsis Recent Fever Within 48 Hours Sepsis New/Unexplained Change in Mental Status Sepsis Action Taken by Nursing 08/31/20 17:00 08/31/20 17:15 08/31/20 17:27 Temperature Temperature Source Pulse Rate 91 H 138 H 100 H Pulse Rate [Apical] Pulse Rate from SpO2 Sensor 94 H 93 H Pulse Rhythm [Apical] Respiratory Rate 16 25 H 26 H Respiratory Effort / Characteristics Respiratory Depth Respiratory Pattern Blood Pressure 124/105 H 151/81 H Blood Pressure [Right Arm] Blood Pressure Mean 106 117 Blood Pressure Mean [Right Arm] Pulse Oximetry 97 93 Oxygen Delivery Method Room Air Oxygen Flow Rate Sepsis Recent Fever Within 48 Hours Sepsis New/Unexplained Change in Mental Status Sepsis Action Taken by Nursing 08/31/20 17:30 08/31/20 17:45 08/31/20 18:00 Temperature Temperature Source Pulse Rate 105 H 93 H 82 Pulse Rate [Apical] Pulse Rate from SpO2 Sensor 108 H 90 86 Pulse Rhythm [Apical] Respiratory Rate 15 17 14 Respiratory Effort / Characteristics Respiratory Depth Respiratory Pattern Blood Pressure 168/116 H 153/96 H Blood Pressure [Right Arm] Blood Pressure Mean 134 125 Blood Pressure Mean [Right Arm] Pulse Oximetry 99 93 95 Oxygen Delivery Method Oxygen Flow Rate Sepsis Recent Fever Within 48 Hours Sepsis New/Unexplained Change in Mental Status Sepsis Action Taken by Nursing 08/31/20 18:15 08/31/20 18:32 08/31/20 18:45 Temperature Temperature Source Pulse Rate 114 H 118 H 110 H Pulse Rate [Apical] Pulse Rate from SpO2 Sensor 109 H 99 H 109 H Pulse Rhythm [Apical] Respiratory Rate 17 21 24 Respiratory Effort / Characteristics Respiratory Depth Respiratory Pattern Blood Pressure Blood Pressure [Right Arm] Blood Pressure Mean Blood Pressure Mean [Right Arm] Pulse Oximetry 98 97 98 Oxygen Delivery Method Oxygen Flow Rate Sepsis Recent Fever Within 48 Hours Sepsis New/Unexplained Change in Mental Status Sepsis Action Taken by Nursing 08/31/20 19:00 08/31/20 19:15 08/31/20 19:34 Temperature Temperature Source Pulse Rate 119 H 140 H 107 H Pulse Rate [Apical] Pulse Rate from SpO2 Sensor 114 H 116 H Pulse Rhythm [Apical] Respiratory Rate 22 28 H 12 Respiratory Effort / Characteristics Respiratory Depth Respiratory Pattern Blood Pressure 175/81 H Blood Pressure [Right Arm] Blood Pressure Mean 117 Blood Pressure Mean [Right Arm] Pulse Oximetry 95 98 Oxygen Delivery Method Room Air Oxygen Flow Rate Sepsis Recent Fever Within 48 Hours Sepsis New/Unexplained Change in Mental Status Sepsis Action Taken by Nursing 08/31/20 19:45 08/31/20 20:00 08/31/20 20:01 Temperature Temperature Source Pulse Rate 99 H 86 105 H Pulse Rate [Apical] Pulse Rate from SpO2 Sensor 98 H 97 H 104 H Pulse Rhythm [Apical] Respiratory Rate 24 26 H 29 H Respiratory Effort / Characteristics Respiratory Depth Respiratory Pattern Blood Pressure 157/104 H Blood Pressure [Right Arm] Blood Pressure Mean 130 Blood Pressure Mean [Right Arm] Pulse Oximetry 99 100 Oxygen Delivery Method Nasal Cannula Nasal Cannula Oxygen Flow Rate 2 2 Sepsis Recent Fever Within 48 Hours Sepsis New/Unexplained Change in Mental Status Sepsis Action Taken by Nursing 08/31/20 20:15 08/31/20 20:30 08/31/20 20:45 Temperature Temperature Source Pulse Rate 94 H 112 H Pulse Rate [Apical] Pulse Rate from SpO2 Sensor 97 H 114 H 148 H Pulse Rhythm [Apical] Respiratory Rate 15 7 L Respiratory Effort / Characteristics Respiratory Depth Respiratory Pattern Blood Pressure 159/93 H Blood Pressure [Right Arm] Blood Pressure Mean 113 Blood Pressure Mean [Right Arm] Pulse Oximetry 98 99 96 Oxygen Delivery Method Nasal Cannula Nasal Cannula Oxygen Flow Rate 2 2 Sepsis Recent Fever Within 48 Hours Sepsis New/Unexplained Change in Mental Status Sepsis Action Taken by Nursing 08/31/20 21:00 08/31/20 21:21 08/31/20 21:30 Temperature Temperature Source Pulse Rate Pulse Rate [Apical] Pulse Rate from SpO2 Sensor 141 H 123 H 120 H Pulse Rhythm [Apical] Respiratory Rate Respiratory Effort / Characteristics Respiratory Depth Respiratory Pattern Blood Pressure Blood Pressure [Right Arm] Blood Pressure Mean Blood Pressure Mean [Right Arm] Pulse Oximetry 97 99 98 Oxygen Delivery Method Oxygen Flow Rate Sepsis Recent Fever Within 48 Hours Sepsis New/Unexplained Change in Mental Status Sepsis Action Taken by Nursing 08/31/20 21:45 08/31/20 22:01 08/31/20 22:15 Temperature Temperature Source Pulse Rate Pulse Rate [Apical] Pulse Rate from SpO2 Sensor 129 H 127 H 126 H Pulse Rhythm [Apical] Respiratory Rate Respiratory Effort / Characteristics Respiratory Depth Respiratory Pattern Blood Pressure Blood Pressure [Right Arm] Blood Pressure Mean Blood Pressure Mean [Right Arm] Pulse Oximetry 98 97 94 Oxygen Delivery Method Oxygen Flow Rate Sepsis Recent Fever Within 48 Hours Sepsis New/Unexplained Change in Mental Status Sepsis Action Taken by Nursing 08/31/20 22:30 08/31/20 22:45 08/31/20 23:00 Temperature Temperature Source Pulse Rate Pulse Rate [Apical] 114 H Pulse Rate from SpO2 Sensor 117 H 99 H 123 H Pulse Rhythm [Apical] Respiratory Rate 18 Respiratory Effort / Characteristics Respiratory Depth Respiratory Pattern Blood Pressure 156/107 H Blood Pressure [Right Arm] 149/94 H Blood Pressure Mean 116 Blood Pressure Mean [Right Arm] 112 Pulse Oximetry 95 95 97 Oxygen Delivery Method Room Air Oxygen Flow Rate Sepsis Recent Fever Within 48 Hours Sepsis New/Unexplained Change in Mental Status Sepsis Action Taken by Nursing 08/31/20 23:15 08/31/20 23:30 Temperature Temperature Source Pulse Rate Pulse Rate [Apical] Pulse Rate from SpO2 Sensor 102 H 100 H Pulse Rhythm [Apical] Respiratory Rate Respiratory Effort / Characteristics Respiratory Depth Respiratory Pattern Blood Pressure 162/86 H Blood Pressure [Right Arm] Blood Pressure Mean 91 Blood Pressure Mean [Right Arm] Pulse Oximetry 93 93 Oxygen Delivery Method Oxygen Flow Rate Sepsis Recent Fever Within 48 Hours Sepsis New/Unexplained Change in Mental Status Sepsis Action Taken by Nursing VITAL SIGNS - Vital signs and nursing notes were reviewed. Patient is tachycardic. GENERAL -80-year-old female appearing her stated age who is in no acute distress. Communicates well with provider and answers questions appropriately. She is conversationally dyspneic. She is not speaking in full sentences. SKIN - Without rashes. HEAD - NC/AT. EYES - PERRL with EOMI bilaterally. Sclera anicteric. EARS - No deformities of external structures noted on gross examination bilaterally. NOSE - Midline and without cyanosis. No epistaxis or purulent drainage noted. MOUTH/OROPHARYNX - Without perioral cyanosis. NECK - Neck with FROM. No nuchal rigidity. LUNGS - Chest wall symmetric without accessory muscle use, intercostals retractions, or central cyanosis. Normal vesicular breath sounds CTA B/L. No wheezes, rales, or rhonchi appreciated. CARDIAC - IRRR with S1/S2. No murmur, rubs, or gallops appreciated. EXTREMITIES - No clubbing or peripheral cyanosis. No pretibial edema present.+5/5 strength noted in UE/LE bilaterally. NEUROLOGIC - Cranial nerves II through XII grossly intact. PSYCH - A&Ox3 and cooperates fully with examiner. Pt is very pleasant and interacts well with examiner. Course Administered Medications Sodium Chloride (Nss) 500 mls @ 125 mls/hr IV .Q4H LISS Stop: 09/30/20 18:44 Last Admin: 08/31/20 20:07 Dose: 125 mls/hr Documented by: [id number] Discontinued Medications Dexamethasone (Dexamethasone Sod Inj 10 Mg/Ml Vial) 6 mg IV NOW ONE Stop: 08/31/20 17:31 Last Admin: 08/31/20 18:25 Dose: 6 mg Documented by: [id number] Diltiazem HCl (Diltiazem Hcl 5 Mg/Ml 5 Ml Vial) 10 mg IV NOW STA Stop: 08/31/20 15:45 Last Admin: 08/31/20 16:27 Dose: 10 mg Documented by: [id number] Cosigned by: [id number] Sodium Chloride (Nss 1000ml) 500 mls @ 999 mls/hr IV .Q31M ONE Stop: 08/31/20 19:08 Last Infusion: 08/31/20 20:06 Dose: 0 mls/hr Documented by: [id number] Admin: 08/31/20 19:35 Dose: 999 mls/hr Documented by: [id number] Medical Decision Making Laboratory Data Result diagrams: 08/31/20 16:21 08/31/20 16:21 Lab Results 08/31/20 08/31/20 08/31/20 Range/Units 16:09 16: 16:09 WBC (4.8-10.8) K/uL RBC (4.2-5.4) M/uL Hgb (12.0-16.0) g/dL Hct (37-47) % MCV (80-100) fL MCH (25-34) pg MCHC (32-36) g/dL RDW Std Deviation (36.4-46.3) fL RDW Coeff of Alex (11.5-14.5) % Plt Count (130-400) K/uL MPV (7.4-10.4) fL Immature Gran % (Auto) % Neut % (Auto) % Lymph % (Auto) % Bartholomew % (Auto) % Eos % (Auto) % Baso % (Auto) % Neut # (Auto) (1.4-6.5) K/uL Lymph # (Auto) (1.2-3.4) K/uL Bartholomew # (Auto) (0.11-0.59) K/uL Eos # (Auto) (0-0.5) K/uL Baso # (Auto) (0-0.2) K/uL Immature Gran # (Auto) (0.00-0.02) K/uL PT (9.0-12.0) Seconds INR (0.9-1.1) APTT (21.0-31.0) Seconds PTT Ratio Sodium (136-145) mmol/L Potassium (3.5-5.1) mmol/L Chloride (98-107) mmol/L Carbon Dioxide (21-32) mmol/L Anion Gap (3-11) BUN (7-18) mg/dl Creatinine (0.6-1.2) mg/dl Est Cr Clr Drug Dosing ml/min Est GFR ( Amer) Est GFR (Non-Af Amer) BUN/Creatinine Ratio (10-20) Glucose (70-99) mg/dl Lactate (0.4-2.0) mmol/L Calcium (8.5-10.1) mg/dl Magnesium (1.8-2.4) mg/dl Total Bilirubin (0.2-1) mg/dl AST (15-37) U/L ALT (12-78) U/L Alkaline Phosphatase (45-117) U/L Troponin I (0-0.045) ng/ml Total Protein (6.4-8.2) gm/dl Albumin (3.4-5.0) gm/dl Globulin (2.5-4.0) gm/dl Albumin/Globulin Ratio (0.9-2) Procalcitonin (0-0.5) ng/ml TSH (0.300-4.500) uIu/ml Urine Color Urine Appearance (Clear) Urine pH (4.5-7.5) Ur Specific [place] (1.000-1.030) Urine Protein (Negative) Urine Glucose (UA) (Negative) Urine Ketones (Negative) Urine Blood (Negative) Urine Nitrite (Negative) Urine Bilirubin (Negative) Urine Urobilinogen (Negative) Ur Leukocyte Esterase (Negative) Urine WBC (Auto) (0-5) /hpf Urine RBC (Auto) (0-4) /hpf U Hyaline Cast (Auto) (0-5) /lpf U Epithel Cells (Auto) (0-5) /lpf Urine Bacteria (Auto) (Negative) COVID-19 Eval Order Covid19 Done at [facility] COVID-19 PCR POSITIVE A* (Negative) Influ A Molecular Assay Negative (Negative) Influ B Molecular Assay Negative (Negative) 08/31/20 08/31/20 08/31/20 Range/Units 16:21 16:21 16:21 WBC 4.62 L (4.8-10.8) K/uL RBC 4.57 (4.2-5.4) M/uL Hgb 13.8 (12.0-16.0) g/dL Hct 41.0 (37-47) % MCV 89.7 (80-100) fL MCH 30.2 (25-34) pg MCHC 33.7 (32-36) g/dL RDW Std Deviation 46.3 (36.4-46.3) fL RDW Coeff of Alex 14.0 (11.5-14.5) % Plt Count 188 (130-400) K/uL MPV 10.4 (7.4-10.4) fL Immature Gran % (Auto) 0.2 % Neut % (Auto) 50.2 % Lymph % (Auto) 28.8 % Bartholomew % (Auto) 20.6 % Eos % (Auto) 0.0 % Baso % (Auto) 0.2 % Neut # (Auto) 2.32 (1.4-6.5) K/uL Lymph # (Auto) 1.33 (1.2-3.4) K/uL Bartholomew # (Auto) 0.95 H (0.11-0.59) K/uL Eos # (Auto) 0.00 (0-0.5) K/uL Baso # (Auto) 0.01 (0-0.2) K/uL Immature Gran # (Auto) 0.01 (0.00-0.02) K/uL PT 13.2 H (9.0-12.0) Seconds INR 1.3 H (0.9-1.1) APTT 29.9 (21.0-31.0) Seconds PTT Ratio 1.1 Sodium 134 L (136-145) mmol/L Potassium 3.9 (3.5-5.1) mmol/L Chloride 100 (98-107) mmol/L Carbon Dioxide 24 (21-32) mmol/L Anion Gap 10.0 (3-11) BUN 19 H (7-18) mg/dl Creatinine 1.37 H (0.6-1.2) mg/dl Est Cr Clr Drug Dosing 32.6 ml/min Est GFR ( Amer) 42.7 Est GFR (Non-Af Amer) 36.9 BUN/Creatinine Ratio 13.5 (10-20) Glucose 267 H (70-99) mg/dl Lactate (0.4-2.0) mmol/L Calcium 9.0 (8.5-10.1) mg/dl Magnesium 2.3 (1.8-2.4) mg/dl Total Bilirubin 0.3 (0.2-1) mg/dl AST 49 H (15-37) U/L ALT 49 (12-78) U/L Alkaline Phosphatase 55 (45-117) U/L Troponin I < 0.015 (0-0.045) ng/ml Total Protein 8.7 H (6.4-8.2) gm/dl Albumin 3.8 (3.4-5.0) gm/dl Globulin 4.9 H (2.5-4.0) gm/dl Albumin/Globulin Ratio 0.8 L (0.9-2) Procalcitonin (0-0.5) ng/ml TSH 1.220 (0.300-4.500) uIu/ml Urine Color Urine Appearance (Clear) Urine pH (4.5-7.5) Ur Specific [place] (1.000-1.030) Urine Protein (Negative) Urine Glucose (UA) (Negative) Urine Ketones (Negative) Urine Blood (Negative) Urine Nitrite (Negative) Urine Bilirubin (Negative) Urine Urobilinogen (Negative) Ur Leukocyte Esterase (Negative) Urine WBC (Auto) (0-5) /hpf Urine RBC (Auto) (0-4) /hpf U Hyaline Cast (Auto) (0-5) /lpf U Epithel Cells (Auto) (0-5) /lpf Urine Bacteria (Auto) (Negative) COVID-19 Eval Order COVID-19 PCR (Negative) Influ A Molecular Assay (Negative) Influ B Molecular Assay (Negative) 08/31/20 08/31/20 08/31/20 Range/Units 16:21 16:21 16:35 WBC (4.8-10.8) K/uL RBC (4.2-5.4) M/uL Hgb (12.0-16.0) g/dL Hct (37-47) % MCV (80-100) fL MCH (25-34) pg MCHC (32-36) g/dL RDW Std Deviation (36.4-46.3) fL RDW Coeff of Alex (11.5-14.5) % Plt Count (130-400) K/uL MPV (7.4-10.4) fL Immature Gran % (Auto) % Neut % (Auto) % Lymph % (Auto) % Bartholomew % (Auto) % Eos % (Auto) % Baso % (Auto) % Neut # (Auto) (1.4-6.5) K/uL Lymph # (Auto) (1.2-3.4) K/uL Bartholomew # (Auto) (0.11-0.59) K/uL Eos # (Auto) (0-0.5) K/uL Baso # (Auto) (0-0.2) K/uL Immature Gran # (Auto) (0.00-0.02) K/uL PT (9.0-12.0) Seconds INR (0.9-1.1) APTT (21.0-31.0) Seconds PTT Ratio Sodium (136-145) mmol/L Potassium (3.5-5.1) mmol/L Chloride (98-107) mmol/L Carbon Dioxide (21-32) mmol/L Anion Gap (3-11) BUN (7-18) mg/dl Creatinine (0.6-1.2) mg/dl Est Cr Clr Drug Dosing ml/min Est GFR ( Amer) Est GFR (Non-Af Amer) BUN/Creatinine Ratio (10-20) Glucose (70-99) mg/dl Lactate 3.2 H* (0.4-2.0) mmol/L Calcium (8.5-10.1) mg/dl Magnesium (1.8-2.4) mg/dl Total Bilirubin (0.2-1) mg/dl AST (15-37) U/L ALT (12-78) U/L Alkaline Phosphatase (45-117) U/L Troponin I (0-0.045) ng/ml Total Protein (6.4-8.2) gm/dl Albumin (3.4-5.0) gm/dl Globulin (2.5-4.0) gm/dl Albumin/Globulin Ratio (0.9-2) Procalcitonin 0.07 (0-0.5) ng/ml TSH (0.300-4.500) uIu/ml Urine Color Yellow Urine Appearance Clear (Clear) Urine pH 7.0 (4.5-7.5) Ur Specific [place] 1.018 (1.000-1.030) Urine Protein Trace H (Negative) Urine Glucose (UA) 3+ H (Negative) Urine Ketones Negative (Negative) Urine Blood Trace H (Negative) Urine Nitrite Negative (Negative) Urine Bilirubin Negative (Negative) Urine Urobilinogen Negative (Negative) Ur Leukocyte Esterase Trace H (Negative) Urine WBC (Auto) 5-10 H (0-5) /hpf Urine RBC (Auto) 0-4 (0-4) /hpf U Hyaline Cast (Auto) 0 (0-5) /lpf U Epithel Cells (Auto) >30 H (0-5) /lpf Urine Bacteria (Auto) Negative (Negative) COVID-19 Eval Order COVID-19 PCR (Negative) Influ A Molecular Assay (Negative) Influ B Molecular Assay (Negative) 08/31/20 Range/Units 18:29 WBC (4.8-10.8) K/uL RBC (4.2-5.4) M/uL Hgb (12.0-16.0) g/dL Hct (37-47) % MCV (80-100) fL MCH (25-34) pg MCHC (32-36) g/dL RDW Std Deviation (36.4-46.3) fL RDW Coeff of Alex (11.5-14.5) % Plt Count (130-400) K/uL MPV (7.4-10.4) fL Immature Gran % (Auto) % Neut % (Auto) % Lymph % (Auto) % Bartholomew % (Auto) % Eos % (Auto) % Baso % (Auto) % Neut # (Auto) (1.4-6.5) K/uL Lymph # (Auto) (1.2-3.4) K/uL Bartholomew # (Auto) (0.11-0.59) K/uL Eos # (Auto) (0-0.5) K/uL Baso # (Auto) (0-0.2) K/uL Immature Gran # (Auto) (0.00-0.02) K/uL PT (9.0-12.0) Seconds INR (0.9-1.1) APTT (21.0-31.0) Seconds PTT Ratio Sodium (136-145) mmol/L Potassium (3.5-5.1) mmol/L Chloride (98-107) mmol/L Carbon Dioxide (21-32) mmol/L Anion Gap (3-11) BUN (7-18) mg/dl Creatinine (0.6-1.2) mg/dl Est Cr Clr Drug Dosing ml/min Est GFR ( Amer) Est GFR (Non-Af Amer) BUN/Creatinine Ratio (10-20) Glucose (70-99) mg/dl Lactate 3.3 H* (0.4-2.0) mmol/L Calcium (8.5-10.1) mg/dl Magnesium (1.8-2.4) mg/dl Total Bilirubin (0.2-1) mg/dl AST (15-37) U/L ALT (12-78) U/L Alkaline Phosphatase (45-117) U/L Troponin I (0-0.045) ng/ml Total Protein (6.4-8.2) gm/dl Albumin (3.4-5.0) gm/dl Globulin (2.5-4.0) gm/dl Albumin/Globulin Ratio (0.9-2) Procalcitonin (0-0.5) ng/ml TSH (0.300-4.500) uIu/ml Urine Color Urine Appearance (Clear) Urine pH (4.5-7.5) Ur Specific [place] (1.000-1.030) Urine Protein (Negative) Urine Glucose (UA) (Negative) Urine Ketones (Negative) Urine Blood (Negative) Urine Nitrite (Negative) Urine Bilirubin (Negative) Urine Urobilinogen (Negative) Ur Leukocyte Esterase (Negative) Urine WBC (Auto) (0-5) /hpf Urine RBC (Auto) (0-4) /hpf U Hyaline Cast (Auto) (0-5) /lpf U Epithel Cells (Auto) (0-5) /lpf Urine Bacteria (Auto) (Negative) COVID-19 Eval Order COVID-19 PCR (Negative) Influ A Molecular Assay (Negative) Influ B Molecular Assay (Negative) Imaging Data Radiologist's Impression: SINGLE VIEW CHEST CLINICAL HISTORY: Dyspnea. FINDINGS: An AP, portable, upright chest radiograph is compared to study dated 01/08/2017. The patient is status post midline sternotomy. A 2-lead cardiac pacemaker is unchanged in position and partially obscures the left lower chest. The heart is top normal for projection noting atherosclerotic calcification of the thoracic aorta. The pulmonary vasculature is noncongested. Mild atelectasis is seen at the lung bases. The lungs and pleural spaces are otherwise clear. No pneumothorax is seen. The skeletal structures are osteopenic. The bony thorax is grossly intact. IMPRESSION: No active disease in the chest. ACT 112: Negative or not required by law. Electronically signed by: Mushtaq Basilio M.D. 08/31/2020 5:11 PM [facility] Narrative Patient was seen and evaluated as above in room C 11. Review was performed of nursing notes and vital signs. I did review pertinent previous visits and patient history. After obtaining a thorough history and physical examination the above work up was performed. Patient presents to us today with dyspnea. The patient unfortunately is not able to clarify how long she has been feeling this way. When asked if this is hours, days, weeks or months she is unsure. She does note a history of atrial fibrillation. She has been compliant with her medication. She denies any chest pain. She notes a history of CABG in 2001. She denies any loss of taste or smell. No identified fevers or chills. She feels quite fatigued. Patient is currently being seen during the COVID-19 pandemic and is concern based on her symptoms that this could be causing her presentation here today. On my entrance into the examination room the patient is tachycardic with a variable rate between 100-150 bpm. This appears to be consistent with atrial fibrillation with RVR. 10 mg of IV Cardizem was ordered. Further work-up was obtained. Patient follows with [facility] cardiology/PCP. Heart rate trended in the normal direction. Labs reveal mild decrease in white blood cell count 4.62 without anemia. No emergent metabolic disturbance. Mild СВЕТЛАНА with creatinine 1.37 and BUN at 19. This is elevated from the patient's baseline. Lactic acid elevation noted. Troponin negative. Pro-Anderson within normal limits. Urinalysis does not suggest infection. Patient is positive for COVID-19. Chest x-ray and influenza testing negative. At this point I believe COVID-19 is causing the patient's symptoms. I also believe that the A. fib with RVR is also somewhat contributory. Patient does have a history of A. fib. While here she was given fluids, IV diltiazem and dexamethasone 6 mg IV. Patient's EKG per my interpretation reveals atrial fibrillation with RVR at a rate of 131 bpm. There is no ST elevation. QTc 383. Given the patient's clinical presentation with dyspnea, A. fib with RVR and Covid positive status do believe that further evaluation and management in the inpatient setting is warranted. Patient amenable to staying. Case discussed with hospitalist. Please refer to further documentation regarding her stay. Case was discussed with the attending physician. An order was placed for continuous cardiac monitoring. The monitor shows a rate of 114 bpm with sinus rhythm. I attest that I have personally reviewed the patient medication list. GCS: 15 In the evaluation and treatment of this patient the following differential diagnoses were entertained: MO, PE, pericarditis, myocarditis, COVID-19, influenza, pneumonia, effusion, pneumothorax, among others. Impression & Plan Acute dyspnea, COVID-19, 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 with RVR Discharge Plan Visit Data Chief Complaint: Shortness of Breath/Dyspnea Stated Complaint: SOB ED Provider: Sofi Elkins ED Midlevel Provider: Dalton Baptiste Discharge Problem: Acute dyspnea, COVID-19, 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 with RVR Patient Disposition: Admitted As Inpatient Condition: Good Discharge Instructions Interventions: ED Discharge Assessment Last Done: 08/31/20 22:54 Forms Stand Alone Forms: My [facility] [place] Prescriptions Prescriptions: No Action metoprolol tartrate 50 mg tablet 50 mg PO BID RF: 0 glimepiride 1 mg tablet 2 mg PO QAM RF: 0 losartan 100 mg tablet 100 mg PO DAILY RF: 0 nitroglycerin 0.4 mg tablet, sublingual 0.4 mg SL DIRECTED PRN (Reason: Chest Pain) RF: 0 rosuvastatin 20 mg tablet 20 mg PO HS RF: 0 cholecalciferol (vitamin D3) 5,000 unit capsule 5,000 units PO DAILY RF: 0 warfarin 2 mg tablet 2 mg PO DIRECTED RF: 0 gabapentin 300 mg capsule 300 mg PO TID Qty: 90 RF: 2 furosemide [Lasix] 20 mg tablet See Rx Instructions .ROUTE .COMPLEX RF: 0 metformin 500 mg tablet extended release 24 hr See Rx Instructions .ROUTE .COMPLEX RF: 0 Jardiance 25 mg tablet 25 mg PO DAILY RF: 0 potassium chloride 10 mEq tablet,ER particles/crystals See Rx Instructions .ROUTE .COMPLEX RF: 0 Referrals Referrals: Keon Butler DO [Primary Care Provider] -
[2020-08-31] MEDS ORDERED: dilTIAZem HCl 5 MG/ML 5 ML VIAL IV STA (15:44)
[2020-08-31 16:34] LABS: Basophils # (auto) 0.01 K/uL (0-0.2); Basophils % (auto) 0.2 %; Hemoglobin 13.8 g/dL (12.0-16.0); Immature Granulocytes # (auto) 0.01 K/uL (0.00-0.02); Immature Granulocytes % (auto) 0.2 %; Lymphocytes # (auto) 1.33 K/uL (1.2-3.4); Lymphocytes % (auto) 28.8 %; Mean Corpuscular Hemoglobin 30.2 pg (25-34); Mean Corpuscular Hgb Conc 33.7 g/dL (32-36); Mean Corpuscular Volume 89.7 fL (80-100); Mean Platelet Volume 10.4 fL (7.4-10.4); Monocytes # (auto) 0.95 K/uL (0.11-0.59); Monocytes % (auto) 20.6 %; Neutrophils # (auto) 2.32 K/uL (1.4-6.5); Neutrophils % (auto) 50.2 %; Platelet Count 188 K/uL (130-400); RDW Standard Deviation 46.3 fL (36.4-46.3); Red Blood Count 4.57 M/uL (4.2-5.4); White Blood Count 4.62 K/uL (4.8-10.8)
[2020-08-31 16:47] LABS: Chloride 100 mmol/L (98-107); Potassium 3.9 mmol/L (3.5-5.1); Sodium 134 mmol/L (136-145)
[2020-08-31 16:50] LABS: INR 1.3 (0.9-1.1); Partial Thromboplastin Ratio 1.1; Partial Thromboplastin Time 29.9 Seconds (21.0-31.0); Prothrombin Time 13.2 Seconds (9.0-12.0)
--- NOTE | 2020-08-31 16:54 | Electrocardiogram Report ---
Test Reason : Blood Pressure : / mmHG Vent. Rate : 131 BPM Atrial Rate : 113 BPM P-R Int : 000 ms QRS Dur : 084 ms QT Int : 260 ms P-R-T Axes : 000 013 174 degrees QTc Int : 383 ms 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 or flutter with rapid ventricular response Marked ST abnormality, possible inferolateral subendocardial injury Abnormal ECG When compared with ECG of 08-JAN-2017 21:57, Nonspecific T wave abnormality now evident in Inferior leads T wave inversion now evident in Lateral leads Confirmed by Keven Da Silva ([id number]) on 08/31/2020 4:53:34 PM Referred By: REFERRED SELF Confirmed By:Keven Da Silva
[2020-08-31 17:04] LABS: Appearance Urine Clear (Clear); Bacteria Urine Automated Negative (Negative); Bilirubin Urine Negative (Negative); Blood Urine Trace (Negative); Cast Urine Automated 0 /lpf (0-5); Color Urine Yellow; Epithelial Cell Urine Auto >30 /lpf (0-5); Glucose Urine UA 3+ (Negative); Ketones Urine Negative (Negative); Leukocyte Esterase Urine Trace (Negative); Nitrite Urine Negative (Negative); Protein Urine Trace (Negative); RBC Urine Automated 0-4 /hpf (0-4); Specific Gravity Urine 1.018 (1.000-1.030); Urobilinogen Urine Negative (Negative)
[2020-08-31 17:11] LABS: Influenza A virus by PCR Negative (Negative); Influenza B virus by PCR Negative (Negative)
--- NOTE | 2020-08-31 17:12 | XRay Report ---
SINGLE VIEW CHEST CLINICAL HISTORY: Dyspnea. FINDINGS: An AP, portable, upright chest radiograph is compared to study dated 01/08/2017. The patient is status post midline sternotomy. A 2-lead cardiac pacemaker is unchanged in position and partially obscures the left lower chest. The heart is top normal for projection noting atherosclerotic calcifi cation of the thoracic aorta. The pulmonary vasculature is noncongested. Mild atelectasis is seen at the lung bases. The lungs and pleural spaces are otherwise clear. No pneumothorax is seen. The skelet al structures are osteopenic. The bony thorax is grossly intact. IMPRESSION: No active disease in the chest. ACT 112: Negative or not required by law. Electronically signed by: Mushtaq Basilio M.D. 08/31/2020 5:11 PM
[2020-08-31] MEDS ORDERED: DEXAMETHASONE SOD INJ 10 MG/ML VIAL IV ONE (17:30)
[2020-08-31 17:46] LABS: Alanine Aminotransferase 49 U/L (12-78); Albumin Level 3.8 gm/dl (3.4-5.0); Aspartate Aminotransferase 49 U/L (15-37); BUN Creatinine Ratio 13.5 (10-20); Blood Urea Nitrogen 19 mg/dl (7-18); Carbon Dioxide 24 mmol/L (21-32); Creatinine Clr Calc Pharmacy 32.6 ml/min; Est GFR (African American) 42.7; Est GFR (Non-African American) 36.9; Glucose 267 mg/dl (70-99); Magnesium 2.3 mg/dl (1.8-2.4)
[2020-08-31 18:08] LABS: Albumin Globulin Ratio 0.8 (0.9-2); Alkaline Phosphatase 55 U/L (45-117); Bilirubin,Total 0.3 mg/dl (0.2-1); Globulin 4.9 gm/dl (2.5-4.0); Total Protein 8.7 gm/dl (6.4-8.2); Troponin I < 0.015 ng/ml (0-0.045)
[2020-08-31] MEDS ORDERED: SODIUM CHLORIDE 0.9% 1000ML 500 ML IV ONE (18:38)
[2020-08-31] MEDS ORDERED: WARFARIN SOD 2 MG TAB PO SCH (19:40)
--- NOTE | 2020-08-31 19:42 | History & Physical Report ---
Date of Service August 31, 2020 Assessment & Plan (1) 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 with RVR: Present on admission with SOB associated with palpitation EKG on admission showed Afib with HR in the 120s Received Cardizem IV and dexamethasone iin the ER Will get a resting echo Will add Lovenox therapeutic BID bridge while continue coumadin until INR at goal Will consult cardiology Consider to start on heparin drip Will start on metoprolol Continue monitor PT/INR COVID 19 Testing positive for COVID 19 CXR showed no acute finding Elevated Lactic acid Received dexamethasone in the ER Saturated above 94%on RA Case discussed with pulm Dr. Decker that recommended no need to continue the steroid since pt is saturated well Does not meet the criteria for Remdesivr and Plasma convalescent since her oxygen level is above 94% on RA If her oxygen saturation drops and requires oxygen will consider to add dexamethasone Will check Ferritin, ESR, CRP СВЕТЛАНА Creatinine 1.37 on admission Continue IVF Will hold lasix Will resume Losartan in am if creatinine improves Continue monitor BMP Diabetes type 2 BS elevated on admission Will hold oral diabetes meds Will start on lantus and insulin sliding scale while inpatient Will consult pharmacy for glycemic management Continue monitor BS HTN BP elevated o admission Continue Metoprolol Will resume Losartan in am Continue monitor BMP DVT px on Lovenox until INR therapeutic CODE STATUS DNR History of Present Illness Chief Complaint: SOB Primary Care Provider: Keon Butler, DO 80 yo Female with PMH of Afib, cardiac pacemaker, CAD s/p CABG, HTN, Dyslipidemia, Diabetes type 2, IBS presented to the ER with SOB. Pt said that she has been having SOB for awhile. She said that SOB is worsening with exertion and associated with palpitations. Pt said that her sister from [place] was talking to her over the phone and can here her breathing was heavy over the phone. She said that she feels her heart racing with exertion. Pt denies any cough, fever, chills, chest pain. In the ER she was found with Afib RVR. Allergies Allergy/AdvReac Type Severity Reaction Status Date / Time cefazolin Allergy Unknown CEPHALEXIN-PT Verified 10/24/19 13:55 DOESN'T REMEMBER WHAT HAPPENED tetanus toxoid, adsorbed Allergy Unknown LOCAL Verified 10/24/19 13:55 REACTION/FEVER oxycodone AdvReac Unknown NAUSEA/STOMACH Verified 10/24/19 13:55 PAINS Home Medications Home Medications Medication Instructions Recorded Confirmed Type cholecalciferol (vitamin D3) 125 5,000 units PO DAILY 06/25/19 08/31/20 History mcg (5,000 unit) capsule glimepiride 1 mg tablet 2 mg PO QAM tab 06/25/19 08/31/20 History losartan 100 mg tablet 100 mg PO DAILY 06/25/19 08/31/20 History metoprolol tartrate 50 mg tablet 50 mg PO BID tab 06/25/19 08/31/20 History nitroglycerin 0.4 mg sublingual 0.4 mg SL DIRECTED PRN 06/25/19 08/31/20 History tablet rosuvastatin 20 mg tablet 20 mg PO HS 06/25/19 08/31/20 History warfarin 2 mg tablet 2 mg PO DIRECTED tab 06/25/19 08/31/20 History gabapentin 300 mg capsule 300 mg PO TID #90 cap 07/30/19 08/31/20 Rx furosemide 20 mg tablet See Rx Instructions .ROUTE 10/24/19 08/31/20 History .COMPLEX tab empagliflozin [Jardiance] 25 mg PO DAILY 08/31/20 08/31/20 History metformin See Rx Instructions .ROUTE .COMPLEX 08/31/20 08/31/20 History potassium chloride See Rx Instructions .ROUTE .COMPLEX 08/31/20 08/31/20 History Past Med/Surg History Medical History (Updated 08/31/20 @ 23:43 by Dalton Baptiste PA-C) 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 Cardiac pacemaker Chronic anticoagulation Coronary atherosclerosis DISH (diffuse idiopathic skeletal hyperostosis) Dyslipidemia HTN (hypertension) Hyponatremia IBS (irritable bowel syndrome) Low back pain Pulmonary HTN Type 2 diabetes mellitus Surgical History Aortocoronary bypass status Hx of CABG Family History (Updated 12/23/19 @ 18:28 by Lilly Lopez) Other No pertinent family history in first degree relatives Social History Smoking Status: Never smoker Hx Alcohol Use: No Hx Substance Use: No Preferred Language: Armenian Communication Ability: Effective Visual Impairment: No Limitations Hearing Ability: Normal Administrative Office 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 Required: No Beliefs That Will Affect Care: None marital status: Current Living Situation: Spouse current occupational status: retired Other Information That Helps Us Care for You: No Feels Safe at Home: Yes Safety Concerns: Feels Safe At This Time Assistive Devices: None Review of Systems Review of Systems: All systems reviewed & are unremarkable except as noted in HPI & below Physical Exam Physical Exam: General- No acute distress Head- atraumatic Eyes- PERRL, EOMI, ENT- oropharynx clear Neck- supple, no JVD Lungs- clear to auscultation Heart- irregular rhythm Abdomen- normal bowel sounds, soft, nontender Extremities- no calf tenderness Neuro- alert, oriented x 3; PERRL, EOMI; no facial palsy; no dysarthria Skin- warm & dry Results & Data Results & Data ([facility]) Vital Signs (Past 12 Hours) Vital Signs Temp Pulse Pulse Resp BP Pulse Ox 08/31/20 19:00 119 H 22 175/81 H 95 08/31/20 18:45 110 H 24 98 08/31/20 18:32 118 H 21 97 08/31/20 18:15 114 H 17 98 08/31/20 18:00 82 14 153/96 H 95 08/31/20 17:45 93 H 17 93 08/31/20 17:30 105 H 15 168/116 H 99 08/31/20 17:27 100 H 26 H 151/81 H 93 08/31/20 17:15 138 H 25 H 08/31/20 17:00 91 H 16 124/105 H 97 08/31/20 16:45 102 H 12 97 08/31/20 16:41 37.7 C H 85 18 08/31/20 16:30 104 H 22 126/66 96 08/31/20 16:15 132 H 15 08/31/20 16:00 97 08/31/20 15:45 179 H 18 93 08/31/20 15:30 132 H 21 162/100 H 95 08/31/20 15:14 124 H 24 173/94 H 96 Diagnostic Findings SINGLE VIEW CHEST CLINICAL HISTORY: Dyspnea. FINDINGS: An AP, portable, upright chest radiograph is compared to study dated 01/08/2017. The patient is status post midline sternotomy. A 2-lead cardiac pacemaker is unchanged in position and partially obscures the left lower chest. The heart is top normal for projection noting atherosclerotic calcification of the thoracic aorta. The pulmonary vasculature is noncongested. Mild atelectasis is seen at the lung bases. The lungs and pleural spaces are otherwise clear. No pneumothorax is seen. The skeletal structures are osteopenic. The bony thorax is grossly intact. IMPRESSION: No active disease in the chest. ACT 112: Negative or not required by law. Electronically signed by: Mushtaq Basilio M.D. 08/31/2020 5:11 PM Dictated: 08/31/20 171Transcribed: 08/31/20 171
[2020-08-31] MEDS: SODIUM CHLORIDE 0.9% 500 ML IV SCH (20:07)
--- NOTE | 2020-08-31 23:36 | Emergency Department Note ---
ED Visit Note I have personally seen and evaluated the patient with the PA. I agree with the diagnosis and management decisions and have been personally involved in the case. Upon my evaluation of the patient, she appeared to be much improved. She was informed of the Covid positive diagnosis. Patient was ordered dexamethasone 6 mg IV. Chest x-ray was reviewed and negative for focal infiltrate. Heart rate had improved after diltiazem was administered. Please see MIRIAM Storey's notes for further details of the history, physical and visit. .
[2020-09-01] MEDS ORDERED: GLUCAGON FOR INJ 1 MG VIAL SQ PRN ×2 (00:39)
[2020-09-01] MEDS ORDERED: NITROGLYCERIN SL 0.4 MG/TAB TAB SL PRN (00:39)
[2020-09-01] MEDS ORDERED: GLUCOSE 10 TABS/TUBE PO PRN ×2 (00:39)
[2020-09-01] MEDS ORDERED: DEXTROSE 50% 50 ML SYRINGE IV PRN ×2 (00:39)
[2020-09-01] MEDS ORDERED: INSULIN GLARGINE SOLOSTAR 100 UNITS/ML 3 ML PEN SC SCH ×2 (00:39→21:00)
[2020-09-01] MEDS ORDERED: CARBOHYDRATES FOR HYPOGLYCEMIA PO PRN ×2 (00:39)
[2020-09-01] MEDS ORDERED: GLUCOSE 40% GEL 15 GM TUBE PO PRN ×2 (00:39)
[2020-09-01] MEDS ORDERED: METOPROLOL TARTRATE 1 MG/ML VIAL IV PRN ×2 (00:39→01:15)
[2020-09-01] MEDS ORDERED: dilTIAZem HCl 5 MG/ML 5 ML VIAL IV STA (01:11)
[2020-09-01] MEDS ORDERED: POTASSIUM CHLORIDE CRTAB 20 MEQ TABCR PO STA (01:13)
[2020-09-01] MEDS: SODIUM CHLORIDE 0.9% 1000ML 1,000 ML IV SCH ×2 (01:53→11:17)
[2020-09-01] MEDS ORDERED: IPRATROPIUM BROMIDE/ALBUTEROL respimat INH INH PRN (01:56)
[2020-09-01] MEDS: GABAPENTIN 300 MG CAP PO SCH ×4 (01:57→22:07)
[2020-09-01] MEDS: ENOXAPARIN 80 MG/0.8 ML SYR SC SCH ×3 (01:57→22:05)
[2020-09-01] MEDS: METOPROLOL TARTRATE 50 MG TAB PO SCH ×3 (01:57→22:07)
[2020-09-01] MEDS: ROSUVASTATIN CALCIUM 20 MG TAB PO SCH ×2 (01:57→22:07)
[2020-09-01] MEDS ORDERED: dilTIAZem HCL 125 MG in DEXTROSE 5% 100 ML IV SCH (02:00)
[2020-09-01] MEDS: INSULIN ASPART 100 UNITS/ML 3 ML PEN SC SCH ×5 (02:12→22:31)
[2020-09-01] MEDS ORDERED: PHARMACY GLYCEMIC MGMT CONSULT PRN (02:12)
[2020-09-01] MEDS ORDERED: INSULIN HUMAN REGULAR PER UNIT 5 UNITS in SYRINGE 4.95 ML IV ONE (02:15)
[2020-09-01] MEDS ORDERED: INSULIN GLARGINE SOLOSTAR 100 UNITS/ML 3 ML PEN SC ONE ×2 (02:30→09:00)
[2020-09-01 05:39] LABS: Hematocrit (blood only) 41.9 % (37-47); Hemoglobin 14.4 g/dL (12.0-16.0); Mean Corpuscular Hemoglobin 30.6 pg (25-34); Mean Corpuscular Hgb Conc 34.4 g/dL (32-36); Mean Platelet Volume 10.6 fL (7.4-10.4); Platelet Count 181 K/uL (130-400); RDW Standard Deviation 45.6 fL (36.4-46.3); Red Blood Count 4.71 M/uL (4.2-5.4); White Blood Count 6.92 K/uL (4.8-10.8)
[2020-09-01 05:55] LABS: Albumin Level 3.6 gm/dl (3.4-5.0); Calcium 8.3 mg/dl (8.5-10.1); Creatinine Clr Calc Pharmacy 36.5 ml/min; Est GFR (African American) 49.1; Est GFR (Non-African American) 42.4; Potassium 4.2 mmol/L (3.5-5.1)
[2020-09-01 06:00] LABS: Albumin Globulin Ratio 0.7 (0.9-2); Bilirubin,Total 0.3 mg/dl (0.2-1); C Reactive Protein 0.41 mg/dl (0-0.29); Ferritin 131.1 ng/ml (8-388); Globulin 5.1 gm/dl (2.5-4.0); Total Protein 8.7 gm/dl (6.4-8.2)
[2020-09-01 06:15] LABS: D Dimer 370 ug/L FEU (0-500); INR 1.3 (0.9-1.1); Prothrombin Time 13.4 Seconds (9.0-12.0)
[2020-09-01 06:24] LABS: Estimated Average Glucose 240 mg/dl
[2020-09-01] MEDS ORDERED: INSULIN ASPART 100 UNITS/ML 3 ML PEN SC SCH (07:30)
[2020-09-01] MEDS ORDERED: FUROSEMIDE 20 MG TAB PO SCH (09:00)
[2020-09-01] MEDS: CHOLECALCIFEROL 1,000 UNITS 25 MCG TAB PO SCH (09:18)
--- NOTE | 2020-09-01 11:26 | Pharmacy Report ---
Glycemic Control Consultation - Date of Service September 01, 2020 - Scope Scope: Glycemic Pharmacist consulted for glycemic control and to write orders per [facility] inpatient glycemic control protocol. - Objective Weight: 77.1 kg [place] BSG (last 24hrs): 08/31/20 09/01/20 09/01/20 16:21 01:43 04:46 Glucose 267 H 268 H POC Glucose 345 H* 09/01/20 08:42 Glucose POC Glucose 266 H Laboratory Data (last 24hrs): 08/31/20 09/01/20 16:21 04:46 Potassium 3.9 4.2 Carbon Dioxide 24 23 Anion Gap 10.0 8.0 Creatinine 1.37 H 1.22 H Est Cr Clr Drug Dosing 32.6 36.5 HbA1c: Hemoglobin A1c 10.0 % (4.5-5.6) H 09/01/20 04:46 - Recent Pertinent Medications Outpatient Anti-diabetic Regimen: * Jardiance 25 mg PO qAM * Amaryl 2 mg PO qAM * Metformin XR 500 mg qAM and 1000 mg qPM The patient is currently receiving: * Basal insulin: Lantus 19 units SQ x 1 (around 0200 today) * Correctional Insulin: Novolog Correction per scale ACHS Goal Range: Low 110 mg/dL - High 140 mg/dL Correction Factor: 25 mg/dL/unit * Prandial insulin: Per carb ratio of 1 unit per 8 grams CHO consumed * Oral Agents: Risk Factors for Insulin Resistance: * Steroids: dexamethasone 6 mg IV @ 1825 on 09/02/20 * Diet: T2DM - Assessment & Plan Assessment & Plan: ASSESSMENT: * Ms Almanza is a 80 y/o F with a history of uncontrolled T2DM on three oral medications. Patient was admitted with Afib RVR with positive COVID 19 test. * Blood sugar was elevated overnight. Patient did receive dexamethasone 6 mg in the ER. There are no current plans to continue dexamethasone. * Will give additional 20 units this morning for full loading dose of 40 units of Lantus today then start Lantus 20 units BID on 09/02/20 (give 13 units if BSG < 160 mg/dL). * For Novolog will use [id number] stress of 3 due to receiving steroids. PLAN FOR INPATIENT GLYCEMIC CONTROL: * Basal insulin * Lantus 20 units SQ x 1 then 20 units SQ BID starting 09/02/20 * Bolus insulin * NovoLog per scale ACHS or Q6hrs while NPO * Goal Range: Low 110 mg/dL - High 140 mg/dL * Correction Factor: 20 mg/dL/unit * Nutritional / Prandial insulin per carb ratio of 1 unit per 7 grams CHO consumed * Please note that the plan above was derived based on current level of insulin resistance and hospital stress. These recommendations are appropriate for inpatient admission only. Plan of care upon discharge will need to be reassessed to avoid potential outpatient hypo/hyperglycemia. Thank you.
--- NOTE | 2020-09-01 12:03 | Cardiology Consultation ---
Date of Consultation September 01, 2020 Assessment & Plan (1) Acute dyspnea: (2) COVID-19: (3) 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 with RVR: I think the patient most likely has chronic atrial fibrillation. Therefore, I would continue with rate control only as you are doing. She had an echocardiogram in June through our clinic and the results I have added to this consult. She also had a nuclear stress test that was negative for ischemia in June as well. She needs of course anticoagulation. Unless clinically indicated due to other reasons I would not recommend an echocardiogram this admission. History of Present Illness Attending Physician: Jim Covington MD History of Present Illness This is a chart consultation on a 80-year-old female admitted with COVID-19. She has the history as outlined below. She is status post coronary artery bypass surgery in 2001. She has a history of sick sinus syndrome and paroxysmal atrial fibrillation status post permanent pacemaker. It appears from the notes that the patient had been on sotalol but failed and then was started on amiodarone in 2016 but discontinued this medication. Not clear why the amiodarone was stopped. It could be that the decision was made to have rate control and anticoagulation then trying to maintain sinus rhythm. Past medical history: 1.Atherosclerotic coronary disease 1.s/p coronary bypass grafting x 2 for accelerated angina pectoris in July 2002 (MARIE graft to the left anterior descending & saphenous vein graft to the left circumflex). 2.Progressive dyspnea on exertion and abnormal stress testing (showed ST depressions in II, III, aVF, V3 to V6 during the exercise portion of the study, converted to Lexiscan, with a small area of ischemia in mid anterior and apical anterior with normal EF and no wall motion abnormalities and no TID 3.January 2012 cardiac catheterization at [facility] [place] which revealed a patent MARIE to LAD, patent SVG to left circumflex, and no other significant coronary stenosis identified which would be amenable to revascularization. 2.Paroxysmal atrial fibrillation. Failed Sotalol. Amiodarone initiated in 11/2016, discontinued in March 2017. 3.Chronic coumadin anticoagulation 4.sick sinus syndrome s/p dual chamber pacemaker insertion in September 2007 5.Generator exchange on 11/25/2016 complicated by significant left subclavian pacemaker pocket hematoma as well as medication issues, resolved. 6.Hypertension 7.Hyperlipidemia 8.Noninsulin dependent diabetes mellitus. Allergies Allergy/AdvReac Type Severity Reaction Status Date / Time cefazolin Allergy Unknown CEPHALEXIN-PT Verified 10/24/19 13:55 DOESN'T REMEMBER WHAT HAPPENED tetanus toxoid, adsorbed Allergy Unknown LOCAL Verified 10/24/19 13:55 REACTION/FEVER oxycodone AdvReac Unknown NAUSEA/STOMACH Verified 10/24/19 13:55 PAINS Home Medications Home Medications Medication Instructions Recorded Confirmed Type cholecalciferol (vitamin D3) 125 5,000 units PO DAILY 06/25/19 08/31/20 History mcg (5,000 unit) capsule glimepiride 1 mg tablet 2 mg PO QAM tab 06/25/19 08/31/20 History losartan 100 mg tablet 100 mg PO DAILY 06/25/19 08/31/20 History metoprolol tartrate 50 mg tablet 50 mg PO BID tab 06/25/19 08/31/20 History nitroglycerin 0.4 mg sublingual 0.4 mg SL DIRECTED PRN 06/25/19 08/31/20 History tablet rosuvastatin 20 mg tablet 20 mg PO HS 06/25/19 08/31/20 History warfarin 2 mg tablet 2 mg PO DIRECTED tab 06/25/19 08/31/20 History gabapentin 300 mg capsule 300 mg PO TID #90 cap 07/30/19 08/31/20 Rx furosemide 20 mg tablet See Rx Instructions .ROUTE 10/24/19 08/31/20 History .COMPLEX tab empagliflozin [Jardiance] 25 mg PO DAILY 08/31/20 08/31/20 History metformin See Rx Instructions .ROUTE .COMPLEX 08/31/20 08/31/20 History potassium chloride See Rx Instructions .ROUTE .COMPLEX 08/31/20 08/31/20 History Patient History Medical History (Updated 08/31/20 @ 23:43 by Dalton Baptiste PA-C) 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 Cardiac pacemaker Chronic anticoagulation Coronary atherosclerosis DISH (diffuse idiopathic skeletal hyperostosis) Dyslipidemia HTN (hypertension) Hyponatremia IBS (irritable bowel syndrome) Low back pain Pulmonary HTN Type 2 diabetes mellitus Surgical History Aortocoronary bypass status Hx of CABG Family History (Updated 12/23/19 @ 18:28 by Lilly Lopez) Other No pertinent family history in first degree relatives Social History Smoking Status: Never smoker Hx Alcohol Use: No Hx Substance Use: No Preferred Language: Cuban Communication Ability: Effective Visual Impairment: No Limitations Hearing Ability: Normal Certified Medical Coding Specialist Required: No Beliefs That Will Affect Care: None marital status: Current Living Situation: Spouse current occupational status: retired Other Information That Helps Us Care for You: No Feels Safe at Home: Yes Safety Concerns: Feels Safe At This Time Assistive Devices: None Review of Systems Review of Systems: All systems reviewed & are unremarkable except as noted in HPI & below Nothing additional to add. Physical Exam Physical Exam: Not completed Results & Data ([facility]) Vital Signs (Past 12 Hours) Vital Signs Temp Pulse Pulse Resp BP Pulse Ox 09/01/20 08:00 36.5 C 62 70 18 148/94 H 95 09/01/20 03:54 36.7 C 64 16 101/66 97 09/01/20 01:15 126 H 09/01/20 00:00 36.5 C 108 H 20 175/87 H 93 Laboratory Results Laboratory Results - last 24 hr 08/31/20 08/31/20 08/31/20 16:09 16:09 16:09 WBC RBC Hgb Hct MCV MCH MCHC RDW Std Deviation RDW Coeff of Alex Plt Count MPV Immature Gran % (Auto) Neut % (Auto) Lymph % (Auto) [place] % (Auto) Eos % (Auto) Baso % (Auto) Neut # (Auto) Lymph # (Auto) [place] # (Auto) Eos # (Auto) Baso # (Auto) Immature Gran # (Auto) ESR PT INR APTT PTT Ratio D-Dimer Sodium Potassium Chloride Carbon Dioxide Anion Gap BUN Creatinine Est Cr Clr Drug Dosing Est GFR ( Amer) Est GFR (Non-Af Amer) BUN/Creatinine Ratio Glucose POC Glucose Estimat Average Glucose Hemoglobin A1c Lactate Calcium Magnesium Ferritin Total Bilirubin AST ALT Alkaline Phosphatase Troponin I C-Reactive Protein Total Protein Albumin Globulin Albumin/Globulin Ratio Procalcitonin TSH Urine Color Urine Appearance Urine pH Ur Specific [place] Urine Protein Urine Glucose (UA) Urine Ketones Urine Blood Urine Nitrite Urine Bilirubin Urine Urobilinogen Ur Leukocyte Esterase Urine WBC (Auto) Urine RBC (Auto) U Hyaline Cast (Auto) U Epithel Cells (Auto) Urine Bacteria (Auto) COVID-19 Eval Order Covid19 Done at [facility] COVID-19 PCR POSITIVE A* Hepatitis C Ab Screen Influ A Molecular Assay Negative Influ B Molecular Assay Negative 08/31/20 08/31/20 08/31/20 16:21 16:21 16:21 WBC 4.62 L RBC 4.57 Hgb 13.8 Hct 41.0 MCV 89.7 MCH 30.2 MCHC 33.7 RDW Std Deviation 46.3 RDW Coeff of Alex 14.0 Plt Count 188 MPV 10.4 Immature Gran % (Auto) 0.2 Neut % (Auto) 50.2 Lymph % (Auto) 28.8 [place] % (Auto) 20.6 Eos % (Auto) 0.0 Baso % (Auto) 0.2 Neut # (Auto) 2.32 Lymph # (Auto) 1.33 [place] # (Auto) 0.95 H Eos # (Auto) 0.00 Baso # (Auto) 0.01 Immature Gran # (Auto) 0.01 ESR PT 13.2 H INR 1.3 H APTT 29.9 PTT Ratio 1.1 D-Dimer Sodium 134 L Potassium 3.9 Chloride 100 Carbon Dioxide 24 Anion Gap 10.0 BUN 19 H Creatinine 1.37 H Est Cr Clr Drug Dosing 32.6 Est GFR ( Amer) 42.7 Est GFR (Non-Af Amer) 36.9 BUN/Creatinine Ratio 13.5 Glucose 267 H POC Glucose Estimat Average Glucose Hemoglobin A1c Lactate Calcium 9.0 Magnesium 2.3 Ferritin Total Bilirubin 0.3 AST 49 H ALT 49 Alkaline Phosphatase 55 Troponin I < 0.015 C-Reactive Protein Total Protein 8.7 H Albumin 3.8 Globulin 4.9 H Albumin/Globulin Ratio 0.8 L Procalcitonin TSH 1.220 Urine Color Urine Appearance Urine pH Ur Specific [place] Urine Protein Urine Glucose (UA) Urine Ketones Urine Blood Urine Nitrite Urine Bilirubin Urine Urobilinogen Ur Leukocyte Esterase Urine WBC (Auto) Urine RBC (Auto) U Hyaline Cast (Auto) U Epithel Cells (Auto) Urine Bacteria (Auto) COVID-19 Eval Order COVID-19 PCR Hepatitis C Ab Screen Influ A Molecular Assay Influ B Molecular Assay 08/31/20 08/31/20 08/31/20 16:21 16:21 16:35 WBC RBC Hgb Hct MCV MCH MCHC RDW Std Deviation RDW Coeff of Alex Plt Count MPV Immature Gran % (Auto) Neut % (Auto) Lymph % (Auto) [place] % (Auto) Eos % (Auto) Baso % (Auto) Neut # (Auto) Lymph # (Auto) [place] # (Auto) Eos # (Auto) Baso # (Auto) Immature Gran # (Auto) ESR PT INR APTT PTT Ratio D-Dimer Sodium Potassium Chloride Carbon Dioxide Anion Gap BUN Creatinine Est Cr Clr Drug Dosing Est GFR ( Amer) Est GFR (Non-Af Amer) BUN/Creatinine Ratio Glucose POC Glucose Estimat Average Glucose Hemoglobin A1c Lactate 3.2 H* Calcium Magnesium Ferritin Total Bilirubin AST ALT Alkaline Phosphatase Troponin I C-Reactive Protein Total Protein Albumin Globulin Albumin/Globulin Ratio Procalcitonin 0.07 TSH Urine Color Yellow Urine Appearance Clear Urine pH 7.0 Ur Specific [place] 1.018 Urine Protein Trace H Urine Glucose (UA) 3+ H Urine Ketones Negative Urine Blood Trace H Urine Nitrite Negative Urine Bilirubin Negative Urine Urobilinogen Negative Ur Leukocyte Esterase Trace H Urine WBC (Auto) 5-10 H Urine RBC (Auto) 0-4 U Hyaline Cast (Auto) 0 U Epithel Cells (Auto) >30 H Urine Bacteria (Auto) Negative COVID-19 Eval Order COVID-19 PCR Hepatitis C Ab Screen Influ A Molecular Assay Influ B Molecular Assay 08/31/20 08/31/20 09/01/20 18:29 23:40 01:43 WBC RBC Hgb Hct MCV MCH MCHC RDW Std Deviation RDW Coeff of Alex Plt Count MPV Immature Gran % (Auto) Neut % (Auto) Lymph % (Auto) [place] % (Auto) Eos % (Auto) Baso % (Auto) Neut # (Auto) Lymph # (Auto) [place] # (Auto) Eos # (Auto) Baso # (Auto) Immature Gran # (Auto) ESR PT INR APTT PTT Ratio D-Dimer Sodium Potassium Chloride Carbon Dioxide Anion Gap BUN Creatinine Est Cr Clr Drug Dosing Est GFR ( Amer) Est GFR (Non-Af Amer) BUN/Creatinine Ratio Glucose POC Glucose 345 H* Estimat Average Glucose Hemoglobin A1c Lactate 3.3 H* 1.5 Calcium Magnesium Ferritin Total Bilirubin AST ALT Alkaline Phosphatase Troponin I C-Reactive Protein Total Protein Albumin Globulin Albumin/Globulin Ratio Procalcitonin TSH Urine Color Urine Appearance Urine pH Ur Specific [place] Urine Protein Urine Glucose (UA) Urine Ketones Urine Blood Urine Nitrite Urine Bilirubin Urine Urobilinogen Ur Leukocyte Esterase Urine WBC (Auto) Urine RBC (Auto) U Hyaline Cast (Auto) U Epithel Cells (Auto) Urine Bacteria (Auto) COVID-19 Eval Order COVID-19 PCR Hepatitis C Ab Screen Influ A Molecular Assay Influ B Molecular Assay 09/01/20 09/01/20 09/01/20 04:46 04:46 04:46 WBC RBC Hgb Hct MCV MCH MCHC RDW Std Deviation RDW Coeff of Alex Plt Count MPV Immature Gran % (Auto) Neut % (Auto) Lymph % (Auto) [place] % (Auto) Eos % (Auto) Baso % (Auto) Neut # (Auto) Lymph # (Auto) [place] # (Auto) Eos # (Auto) Baso # (Auto) Immature Gran # (Auto) ESR 27 H PT 13.4 H INR 1.3 H APTT PTT Ratio D-Dimer 370 Sodium 137 Potassium 4.2 Chloride 106 Carbon Dioxide 23 Anion Gap 8.0 BUN 20 H Creatinine 1.22 H Est Cr Clr Drug Dosing 36.5 Est GFR ( Amer) 49.1 Est GFR (Non-Af Amer) 42.4 BUN/Creatinine Ratio 16.0 Glucose 268 H POC Glucose Estimat Average Glucose Hemoglobin A1c Lactate Calcium 8.3 L Magnesium Ferritin 131.1 Total Bilirubin 0.3 AST 47 H ALT 50 Alkaline Phosphatase 54 Troponin I C-Reactive Protein 0.41 H Total Protein 8.7 H Albumin 3.6 Globulin 5.1 H Albumin/Globulin Ratio 0.7 L Procalcitonin TSH Urine Color Urine Appearance Urine pH Ur Specific [place] Urine Protein Urine Glucose (UA) Urine Ketones Urine Blood Urine Nitrite Urine Bilirubin Urine Urobilinogen Ur Leukocyte Esterase Urine WBC (Auto) Urine RBC (Auto) U Hyaline Cast (Auto) U Epithel Cells (Auto) Urine Bacteria (Auto) COVID-19 Eval Order COVID-19 PCR Hepatitis C Ab Screen Influ A Molecular Assay Influ B Molecular Assay 09/01/20 09/01/20 09/01/20 04:46 04:46 04:46 WBC 6.92 RBC 4.71 Hgb 14.4 Hct 41.9 MCV 89.0 MCH 30.6 MCHC 34.4 RDW Std Deviation 45.6 RDW Coeff of Alex 14.0 Plt Count 181 MPV 10.6 H Immature Gran % (Auto) Neut % (Auto) Lymph % (Auto) [place] % (Auto) Eos % (Auto) Baso % (Auto) Neut # (Auto) Lymph # (Auto) [place] # (Auto) Eos # (Auto) Baso # (Auto) Immature Gran # (Auto) ESR PT INR APTT PTT Ratio D-Dimer Sodium Potassium Chloride Carbon Dioxide Anion Gap BUN Creatinine Est Cr Clr Drug Dosing Est GFR ( Amer) Est GFR (Non-Af Amer) BUN/Creatinine Ratio Glucose POC Glucose Estimat Average Glucose 240 Hemoglobin A1c 10.0 H Lactate Calcium Magnesium Ferritin Total Bilirubin AST ALT Alkaline Phosphatase Troponin I C-Reactive Protein Total Protein Albumin Globulin Albumin/Globulin Ratio Procalcitonin TSH Urine Color Urine Appearance Urine pH Ur Specific [place] Urine Protein Urine Glucose (UA) Urine Ketones Urine Blood Urine Nitrite Urine Bilirubin Urine Urobilinogen Ur Leukocyte Esterase Urine WBC (Auto) Urine RBC (Auto) U Hyaline Cast (Auto) U Epithel Cells (Auto) Urine Bacteria (Auto) COVID-19 Eval Order COVID-19 PCR Hepatitis C Ab Screen Neg Influ A Molecular Assay Influ B Molecular Assay 09/01/20 08:42 WBC RBC Hgb Hct MCV MCH MCHC RDW Std Deviation RDW Coeff of Alex Plt Count MPV Immature Gran % (Auto) Neut % (Auto) Lymph % (Auto) [place] % (Auto) Eos % (Auto) Baso % (Auto) Neut # (Auto) Lymph # (Auto) [place] # (Auto) Eos # (Auto) Baso # (Auto) Immature Gran # (Auto) ESR PT INR APTT PTT Ratio D-Dimer Sodium Potassium Chloride Carbon Dioxide Anion Gap BUN Creatinine Est Cr Clr Drug Dosing Est GFR ( Amer) Est GFR (Non-Af Amer) BUN/Creatinine Ratio Glucose POC Glucose 266 H Estimat Average Glucose Hemoglobin A1c Lactate Calcium Magnesium Ferritin Total Bilirubin AST ALT Alkaline Phosphatase Troponin I C-Reactive Protein Total Protein Albumin Globulin Albumin/Globulin Ratio Procalcitonin TSH Urine Color Urine Appearance Urine pH Ur Specific [place] Urine Protein Urine Glucose (UA) Urine Ketones Urine Blood Urine Nitrite Urine Bilirubin Urine Urobilinogen Ur Leukocyte Esterase Urine WBC (Auto) Urine RBC (Auto) U Hyaline Cast (Auto) U Epithel Cells (Auto) Urine Bacteria (Auto) COVID-19 Eval Order COVID-19 PCR Hepatitis C Ab Screen Influ A Molecular Assay Influ B Molecular Assay Diagnostic Findings Echocardiogram June 2020: Interpretation Summary The examination is adequate to evaluate the referral indication. There was atrial fibrillation during the examination. The left ventricular cavity size is normal. The LV wall thickness is mildly increased (concentric). The left ventricular wall motion is normal. The qualitative LV ejection fraction is 55-59% (normal). Moderate aortic valve sclerosis is present. Mild aortic valve regurgitation is present. Mild mitral regurgitation is present. There is no evidence of pulmonary hypertension. Moderate tricuspid regurgitation is present. The left ventricular diastolic function is abnormal by 2-D findings. Lexiscan nuclear stress test June 2020: Negative for ischemia. Medications Administered Current Inpatient Medications Albuterol (Ipratropium Epps/Albuterol Respimat Inh) 1 puffs INH Q6H PRN PRN Reason: Shortness Of Breath Stop: 10/01/20 01:55 Dextrose (Dextrose 50% 50 Ml Syringe) 25 - 50 ml IV UD PRN; Protocol PRN Reason: Hypoglycemia Protocol Stop: 10/01/20 00:38 Enoxaparin Sodium (Enoxaparin 80 Mg/0.8 Ml Syr) 80 mg SC BID LISS Stop: 10/01/20 00:38 Last Admin: 09/01/20 09:17 Dose: 80 mg Documented by: Furosemide (Furosemide 20 Mg Tab) 40 mg PO MoWeFr@0900 [facility] Stop: 10/02/20 08:59 Furosemide (Furosemide 20 Mg Tab) 20 mg PO SuTuThSa@0900 [facility] Stop: 10/01/20 08:59 Gabapentin (Gabapentin 300 Mg Cap) 300 mg PO TID LISS Stop: 10/01/20 00:38 Last Admin: 09/01/20 09:18 Dose: 300 mg Documented by: Glucagon (Glucagon For Inj 1 Mg Vial) 1 mg SQ UD PRN; Protocol PRN Reason: Hypoglycemia Protocol Stop: 10/01/20 00:38 Glucose (Glucose 10 Tabs/Tube) 4 - 8 tabs PO UD PRN; Protocol PRN Reason: Hypoglycemia Protocol Stop: 10/01/20 00:38 Glucose (Glucose 40% Gel 15 Gm Tube) 15 - 30 gm PO UD PRN; Protocol PRN Reason: Hypoglycemia Protocol Stop: 10/01/20 00:38 Sodium Chloride (Nss 1000ml) 1,000 mls @ 80 mls/hr IV .[id number] LISS Stop: 10/01/20 00:59 Last Admin: 11/10/20 11:17 Dose: 125 mls/hr Documented by: Insulin Aspart (Insulin Aspart 100 Units/Ml 3 Ml Pen) 0 units SC ACHS [facility] Stop: 10/01/20 00:38 Last Admin: 09/01/20 08:54 Dose: 12 units Documented by: Insulin Glargine (Insulin Glargine Solostar 100 Units/Ml 3 Ml Pen) 0 units SC BID [facility]; Protocol Stop: 10/02/20 08:59 Metoprolol Tartrate (Metoprolol Tartrate 50 Mg Tab) 50 mg PO BID [facility] Stop: 10/01/20 00:38 Last Admin: 09/01/20 09:20 Dose: 50 mg Documented by: Metoprolol Tartrate (Metoprolol Tartrate 1 Mg/Ml Vial) 2.5 mg IV Q6 PRN PRN Reason: for SBP above 120 Stop: 10/01/20 01:14 Miscellaneous (Carbohydrates For Hypoglycemia ) 15 - 30 gm PO UD PRN PRN Reason: Hypoglycemia Protocol Stop: 10/01/20 00:38 Miscellaneous Information (Pharmacy Glycemic Mgmt Consult) 1 ea N/A UD PRN PRN Reason: Consult Stop: 10/01/20 02:11 Nitroglycerin (Nitroglycerin Sl 0.4 Mg/Tab Tab) 0.4 mg SL UD PRN PRN Reason: Chest Pain Stop: 10/01/20 00:38 Rosuvastatin Calcium (Rosuvastatin Calcium 20 Mg Tab) 20 mg PO HS [facility] Stop: 10/01/20 00:38 Last Admin: 09/01/20 01:57 Dose: 20 mg Documented by: Vitamin D (Cholecalciferol 1,000 Units 25 Mcg Tab) 5,000 units PO DAILY [facility] Stop: 10/01/20 08:59 Last Admin: 09/01/20 09:18 Dose: 5,000 units Documented by: Warfarin Sodium (Warfarin Sod 5 Mg Tab) 5 mg PO DAILY@1600 [facility] Stop: 10/01/20 15:59
[2020-09-01] MEDS: WARFARIN SOD 5 MG TAB PO SCH (16:44)
--- NOTE | 2020-09-01 17:59 | Hospitalist Progress Note ---
Date of Service September 01, 2020 Assessment & Plan (1) 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 with RVR: Edmundo. fib RVR Subtherapeutic INR H/O chronic atrial fibrillation Patient presented with Dyspnea, Palpitations TSH: Normal Continue metoprolol 50 mg twice daily IV Lopressor PRN Continue Coumadin for anticoagulation INR:1.3 today Adjust Coumadin dose as needed On therapeutic Lovenox till INR is therapeutic Currently rate controlled Appreciate cardiology input COVID 19 COVID 19 PCR:Positive CXR: No active disease in the chest. Elevated Lactic acid --normalized with IV fluid Saturating well on room air Not a candidate for dexamethasone, remdesivir Admitting physician discussed with pulmonology. Off Note: Acute Kidney Injury Cr:1.3>>1.2 Received IVF Resume Lasix, Losartan as able Monitor Renal function DM II HbA1C:10 Hold p.o. medications Will require to be started on insulin upon discharge Continue insulin therapy while hospitalized Monitor BGs Consult pharmacy for glycemic management HTN BP slightly elevated Continue metoprolol Resume losartan as able Monitor DVT Px: Lovenox SQ/ Coumadin Discontinue Lovenox once INR therapeutic range CODE STATUS DNR/DNI Disposition Expected discharge home when medically stable Admission and Anticipated Discharge Date Admission Date: August 31, 2020 Subjective Patient is seen and examined at bedside Reports nonproductive cough Dyspnea, palpitations resolved Saturating well on room air Eager to get discharged Denies chest pain, dizziness, nausea, abdominal pain Offers no other complaints Review of Systems Review of Systems: All systems reviewed & are unremarkable except as noted in HPI & below Physical Exam Physical Exam: Physical Exam: Vitals signs as noted above General Appearance:Moderately built and nourished, no apparent distress Head: normocephalic, Atraumatic Eyes: normal inspection, EOMI Neck: supple, Trachea midline Respiratory/Chest: Decreased breath sounds, CTA, No accessory muscle use Cardiovascular: Irregular irregular, No murmur Abdomen/GI:Soft, Non tender, Bowel sounds present Extremities/Musculoskelatal:normal inspection, no edema Neurologic/Psych:AAOX3, grossly no focal neurological deficits Skin: normal color, warm, + Vertical mid sternal well healed surgical scar Results & Data Results & Data ([facility]) Vital Signs (Past 12 Hours) Vital Signs Temp Pulse Pulse Resp BP Pulse Ox 09/01/20 17:04 36.5 C 71 20 147/79 H 96 09/01/20 12:08 36.5 C 66 20 156/83 H 98 09/01/20 08:00 36.5 C 62 70 18 148/94 H 95 Laboratory Results Short CBC 09/01/20 Range/Units 04:46 WBC 6.92 (4.8-10.8) K/uL Hgb 14.4 (12.0-16.0) g/dL Hct 41.9 (37-47) % Plt Count 181 (130-400) K/uL BMP 09/01/20 04:46 Sodium 137 Potassium 4.2 Chloride 106 Carbon Dioxide 23 BUN 20 H Creatinine 1.22 H Glucose 268 H Calcium 8.3 L Cardiac Enzymes 08/31/20 Range/Units 16:21 Troponin I < 0.015 (0-0.045) ng/ml Liver Function 08/31/20 09/01/20 Range/Units 16:21 04:46 Total Bilirubin 0.3 0.3 (0.2-1) mg/dl AST 47 H (15-37) U/L ALT 50 (12-78) U/L Alkaline Phosphatase 55 54 (45-117) U/L Albumin 3.6 (3.4-5.0) gm/dl
[2020-09-02] MEDS ORDERED: INSULIN ASPART 100 UNITS/ML 3 ML PEN SC SCH (02:00)
[2020-09-02] MEDS: SODIUM CHLORIDE 0.9% 500 ML IV SCH (06:32)
[2020-09-02 06:42] LABS: INR 1.4 (0.9-1.1); Prothrombin Time 14.1 Seconds (9.0-12.0)
[2020-09-02 06:44] LABS: Hematocrit (blood only) 39.5 % (37-47); Immature Granulocytes # (auto) 0.02 K/uL (0.00-0.02); Immature Granulocytes % (auto) 0.3 %; Lymphocytes % (auto) 24.9 %; Mean Corpuscular Hemoglobin 29.5 pg (25-34); Mean Corpuscular Hgb Conc 32.9 g/dL (32-36); Mean Corpuscular Volume 89.6 fL (80-100); Mean Platelet Volume 10.8 fL (7.4-10.4); Monocytes # (auto) 0.59 K/uL (0.11-0.59); Monocytes % (auto) 7.7 %; Neutrophils # (auto) 5.12 K/uL (1.4-6.5); Neutrophils % (auto) 67.1 %; Platelet Count 177 K/uL (130-400); RDW Coefficient of Variation 14.2 % (11.5-14.5); RDW Standard Deviation 46.4 fL (36.4-46.3); Red Blood Count 4.41 M/uL (4.2-5.4); White Blood Count 7.63 K/uL (4.8-10.8)
[2020-09-02 06:53] LABS: BUN Creatinine Ratio 30.4 (10-20); Calcium 8.6 mg/dl (8.5-10.1); Est GFR (African American) 64.8; Est GFR (Non-African American) 55.9; Magnesium 2.2 mg/dl (1.8-2.4); Potassium 4.1 mmol/L (3.5-5.1)
[2020-09-02] MEDS: CHOLECALCIFEROL 1,000 UNITS 25 MCG TAB PO SCH (08:32)
[2020-09-02] MEDS: GABAPENTIN 300 MG CAP PO SCH ×3 (08:32→20:33)
[2020-09-02] MEDS: METOPROLOL TARTRATE 50 MG TAB PO SCH ×2 (08:33→20:33)
[2020-09-02] MEDS: INSULIN ASPART 100 UNITS/ML 3 ML PEN SC SCH ×4 (08:33→21:41)
[2020-09-02] MEDS: ENOXAPARIN 80 MG/0.8 ML SYR SC SCH ×2 (08:33→20:34)
[2020-09-02] MEDS: INSULIN GLARGINE SOLOSTAR 100 UNITS/ML 3 ML PEN SC SCH ×2 (08:33→21:41)
[2020-09-02] MEDS ORDERED: FUROSEMIDE 20 MG TAB PO SCH (09:00)
[2020-09-02] MEDS: WARFARIN SOD 5 MG TAB PO SCH (14:55)
[2020-09-02] MEDS: ROSUVASTATIN CALCIUM 20 MG TAB PO SCH (20:33)
--- NOTE | 2020-09-02 21:02 | Hospitalist Progress Note ---
Date of Service September 02, 2020 Assessment & Plan (1) COVID-19: Presented with cough and dyspnea. SARS-CoV-2 PCR positive. No infiltrates on chest x-ray. No hypoxia. No indication for specific therapies at this time. Continue to monitor O2 sats. (2) 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 with RVR: Presented with atrial fibrillation with rapid ventricular response. History of PAF, now may be chronic. Metoprolol for rate control. INR low on warfarin- titrate dose. Therapeutic dosing of enoxaparin until INR therapeutic (especially in light of COVID-19 with increased risk of thrombotic / embolic events). (3) CAD (coronary artery disease): No anginal symptoms. Continue metoprolol and statin. (4) HTN (hypertension): Losartan held due to СВЕТЛАНА. Continue metoprolol. (5) Acute kidney injury: Serum creatinine 1.37 at time of admission, compared to baseline of 1.37. Furosemide and losartan held. Received IV fluids. Creatinine today = 0.97. Follow. (6) Hyponatremia: Serum sodium at time of admission 134. Sodium today = 141. Follow. 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 Usually managed with metformin, glimepirde, losartan. Hgb A1c = 10.0. Pharmacy consulted for diabetes management. Lantus / NovoLog per protocol. FBS today = 113. (8) Do not resuscitate status: Per advance directive. (9) DVT prophylaxis: Management of anticoagulation as discussed above. (10) Discharge planning issues: Anticipated discharge to home. Family Medicine follow-up with Dr. Butler. Admission and Anticipated Discharge Date Admission Date: August 31, 2020 Subjective Recheck for COVID-19, atrial fibrillation, and other problems. Patient seen in their room around 1700. Feels somewhat better, but still weak. Nonproductive cough. No significant SOB. O2 sats OK on RA. No fever. No chest pain. Review of Systems: Constitutional- as noted above. Cardiac- as noted above. Pulmonary- as noted above. GI- no nausea, vomiting, diarrhea, melena, hematochezia. - no urinary symptoms. Otherwise, as noted above. Physical Exam Constitutional: no acute distress Eyes: sclerae not anicteric Respiratory: normal respiratory effort, lungs clear to auscultation Cardiovascular: Rate/Rhythm: + irregularly irregular Vessels: no JVD Extremities: no calf tenderness and no edema Gastrointestinal (Abdomen): normal bowel sounds, soft, nontender, no hepatosplenomegaly Musculoskeletal: Extremities: no cyanosis Skin: no rashes, warm and dry Psychiatric: Orientation: alert and oriented x 3 Results & Data Results & Data ([facility]) Vital Signs (Past 12 Hours) Vital Signs Temp Pulse Pulse Resp BP Pulse Ox 09/02/20 20:22 36.8 C 87 20 153/78 H 96 09/02/20 17:00 65 09/02/20 11:43 37.0 C 62 18 114/54 L 94 Laboratory Results 09/02/20 05:39 09/02/20 05:39 INR 1.4 (0.9-1.1) H 09/02/20 05:39
[2020-09-03 04:18] VITALS: O2SAT 96
[2020-09-03 06:46] LABS: INR 2.3 (0.9-1.1); Prothrombin Time 22.9 Seconds (9.0-12.0)
[2020-09-03 07:06] LABS: BUN Creatinine Ratio 27.7 (10-20); Calcium 8.2 mg/dl (8.5-10.1); Creatinine Clr Calc Pharmacy 45.9 ml/min; Est GFR (African American) 64.8; Est GFR (Non-African American) 55.9; Potassium 3.7 mmol/L (3.5-5.1)
[2020-09-03 07:48] VITALS: BP 136/80; PULSE 88; TEMP 98.6
[2020-09-03] MEDS: INSULIN ASPART 100 UNITS/ML 3 ML PEN SC SCH ×3 (08:30→17:13)
[2020-09-03] MEDS: INSULIN GLARGINE SOLOSTAR 100 UNITS/ML 3 ML PEN SC SCH (09:00)
[2020-09-03] MEDS: CHOLECALCIFEROL 1,000 UNITS 25 MCG TAB PO SCH (09:01)
[2020-09-03] MEDS: METOPROLOL TARTRATE 50 MG TAB PO SCH (09:01)
[2020-09-03] MEDS: GABAPENTIN 300 MG CAP PO SCH ×2 (09:02→13:01)
--- NOTE | 2020-09-03 09:38 | Pharmacy Report ---
Pharmacy Glycemic Short Note 2 - Date of Service September 03, 2020 - Glycemic Short BSG Results (Last 24 hours): OUTPATIENT ANTIDIABETIC REGIMEN: * Metformin XR 500 mg qAM + 1000 mg qPM + Glimepiride 2 mg qAM + Jardiance 25 mg daily * A1c = 10% (09/01/2020) ASSESSMENT: * Tootie received 58 units of insulin yesterday * 33 units of basal + 25 units of bolus * BSGs were [phone] mg/dL - uncontrolled * Fasting BSG this AM was 106 - well controlled * Continue with current basal insulin dosing * If patient is to be discharged on insulin, may need to adjust dosing to provider once daily injection * BSGs tend to increase throughout the day * Will continue to trend and tighten correctional/prandial insulin parameters if this trend continues today PLAN FOR INPATIENT GLYCEMIC CONTROL: * Hold outpatient oral diabetes medications * Basal insulin - no change * Lantus 13-20 units SQ BID per scale (see eMAR for more details) * Bolus insulin - no change * NovoLog per scale ACHS or Q6hrs while NPO * Goal Range: Low 110 mg/dL - High 140 mg/dL * Correction Factor: 20 mg/dL/unit * Nutritional / Prandial insulin per carb ratio of 1 unit per 6 grams CHO consumed PLAN FOR DISCHARGE: * HbA1c = 10% from this admission. This indicates very poor outpatient control of T2DM. [place] HbA1c for this patient would be less than 8.0% given her age and comorbidities. * Patient will likely require insulin upon discharge. Once daily dosing will be the preferred method given patient is new to insulin. Recommend starting Lantus 30 units SC qAM. Patient should SMBG at least 2 x per day upon discharge (AM & HS). Close follow-up with outpatient provider is recommended. * Recommend increasing Metformin XR to 1000 mg PO BIDM. * Recommend continuing Jardiance 25 mg PO qAM * Recommend discontinuing Glimepiride upon discharge to decrease risk of hypoglycemia.
--- NOTE | 2020-09-03 15:51 | Hospitalist Progress Note ---
Date of Service September 03, 2020 Assessment & Plan (1) COVID-19: Presented with cough and dyspnea. SARS-CoV-2 PCR positive. No infiltrates on chest x-ray. No hypoxia. O2 sats 96% on RA day of discharge. No indication for specific therapies at this time. (2) 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 with RVR: Presented with atrial fibrillation with rapid ventricular response. History of PAF, now may be chronic. Metoprolol for rate control. INR low on warfarin- titrated dose. Received therapeutic dosing of enoxaparin until INR therapeutic (especially in light of COVID-19 with increased risk of thrombotic / embolic events). (3) CAD (coronary artery disease): No anginal symptoms. Continue metoprolol and statin. (4) HTN (hypertension): Losartan held due to СВЕТЛАНА. Continue metoprolol. (5) Acute kidney injury: Serum creatinine 1.37 at time of admission, compared to baseline of 1.37. Furosemide and losartan held. Received IV fluids. Creatinine today = 0.97. Follow. (6) Hyponatremia: Serum sodium at time of admission 134. Sodium today = 137. Follow. 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 Usually managed with metformin, glimepiride, empagliflozin. Hgb A1c = 10.0. Pharmacy consulted for diabetes management. Lantus / NovoLog per protocol. FBS today = 106. Discharge on metformin, empagliflozin, Lantus. Ongoing outpatient monitoring and support. (8) Do not resuscitate status: Per advance directive. (9) DVT prophylaxis: Management of anticoagulation as discussed above. (10) Discharge planning issues: Discharge to home. Family Medicine follow-up with Dr. Butler. Admission and Anticipated Discharge Date Admission Date: August 31, 2020 Subjective Recheck for COVID-19, atrial fibrillation, and other problems. Patient seen in their room around 1540. Feels better. Cough improved. No significant SOB. O2 sats OK on RA. No fever. No chest pain. Ready to go home. Physical Exam Constitutional: no acute distress Eyes: + anicteric sclerae Respiratory: normal respiratory effort, lungs clear to auscultation Cardiovascular: Rate/Rhythm: + irregularly irregular Vessels: no JVD Extremities: no calf tenderness and no edema Gastrointestinal (Abdomen): normal bowel sounds, soft, nontender, no hepatosplenomegaly Musculoskeletal: Extremities: no cyanosis Skin: no rashes, warm and dry Psychiatric: Orientation: alert and oriented x 3 Results & Data Results & Data ([facility]) Vital Signs (Past 12 Hours) Vital Signs Temp Pulse Resp BP Pulse Ox 09/03/20 07:44 37.0 C 88 16 136/80 96 09/03/20 04:00 37.3 C 92 H 19 141/78 H 96 Laboratory Results 09/02/20 05:39 09/03/20 05:32
--- NOTE | 2020-09-07 03:39 | Discharge Summary ---
Date of Service Date of Admission: 08/31/20 Date of Discharge: 09/03/20 Admission HPI Per Admitting Provider 80 yo Female with PMH of Afib, cardiac pacemaker, CAD s/p CABG, HTN, Dyslipidemia, Diabetes type 2, IBS presented to the ER with SOB. Pt said that she has been having SOB for awhile. She said that SOB is worsening with exertion and associated with palpitations. Pt said that her sister from [place] was talking to her over the phone and can here her breathing was heavy over the phone. She said that she feels her heart racing with exertion. Pt denies any cough, fever, chills, chest pain. In the ER she was found with Afib RVR. Principal Diagnosis atrial fibrillation with rapid ventricular response OTHER ACUTE / NEW DIAGNOSES: COVID-19 acute kidney injury diabetes mellitus type 2, uncontrolled Discharge Data Allergies Allergy/AdvReac Type Severity Reaction Status Date / Time cefazolin Allergy Unknown CEPHALEXIN-PT Verified 10/24/19 13:55 DOESN'T REMEMBER WHAT HAPPENED tetanus toxoid, adsorbed Allergy Unknown LOCAL Verified 10/24/19 13:55 REACTION/FEVER oxycodone AdvReac Unknown NAUSEA/STOMACH Verified 10/24/19 13:55 PAINS Consultations 08/31/20 17:23 ED Decision to Admit Stat 08/31/20 19:28 Consult Cardiology Routine Diabetes Follow up Diabetes Follow-up Needed for HgbA1c >9% Hospital Course (1) 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 with RVR: Presented with atrial fibrillation with rapid ventricular response. History of PAF, now may be chronic. Metoprolol for rate control. INR low on warfarin- titrated dose. Received therapeutic dosing of enoxaparin until INR therapeutic (especially in light of COVID-19 with increased risk of thrombotic / embolic events). (2) COVID-19: Presented with cough and dyspnea. SARS-CoV-2 PCR positive. No infiltrates on chest x-ray. No hypoxia. O2 sats 96% on RA day of discharge. No indication for specific therapies at this time. (3) CAD (coronary artery disease): No anginal symptoms. Continue metoprolol and statin. (4) HTN (hypertension): Losartan held due to СВЕТЛАНА. Continue metoprolol. (5) Acute kidney injury: Serum creatinine 1.37 at time of admission, compared to baseline of 1.37. Furosemide and losartan held. Received IV fluids. Creatinine day of discharge = 0.97. Follow. (6) Hyponatremia: Serum sodium at time of admission 134. Sodium day of discharge = 137. Follow. 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 Usually managed with metformin, glimepiride, empagliflozin. Hgb A1c = 10.0. Pharmacy consulted for diabetes management. Lantus / NovoLog per protocol. FBS today = 106. Discharge on metformin, empagliflozin, Lantus. Ongoing outpatient monitoring and support. (8) Do not resuscitate status: Per advance directive. (9) DVT prophylaxis: Management of anticoagulation as discussed above. (10) Discharge planning issues: Discharged to home. Family Medicine follow-up with Dr. Butler. Total Time Total Time Spent Total Time Spent (In Minutes): 40 Discharge Plan Discharge Items Patient Disposition: Home - Home Health Services Reason For Visit: cough, shortness of breath Discharge Diagnosis: atrial fibrillation (irregular heart rhythm) COVID-19 Condition on Discharge: Good Activity: As commented below Activity Comment: Gradually increase activity as tolerated. Non-emergency contact: Primary Care Provider and Hospitalist Call non-emergency contact if: you have any medication questions and your symptoms worsen Follow-up/Referrals: Dayton Momin [Physician [employer]] - Keon Butler DO [Primary Care Provider] - (Date & Time 09/08/2020 10:00 AM Keon Butler DO Family Practice [facility] PLEASE NOTE: THIS APPOINTMENT IS BY TELEMEDICINE. PLEASE FOLLOW THE INSTRUCTIONS IN THE EMAIL SENT TO YOU. IF YOU HAVE ANY QUESTIONS OR WOULD LIKE TO CHANGE TO A TELEPHONE ONLY APPOINTMENT, PLEASE CALL ) Diet: Carb Consistent or DM2 and Heart Healthy Addtl Attending Provider Instructions: MEDICATION CHANGES: Increase metformin (Glucophage) to 1000 mg twice a day. Start Lantus 30 units each morning. Hold if blood sugar is less than 100. Stop glimepiride. New warfarin (Coumadin) dose will b 2 mg daily. Further instructions per [facility]. SUMMARY OF TEST RESULTS: Electrocardiogram showed atrial fibrillation (irregular heart rhythm). COVID-19 test was positive. Chest x-ray did not show any sign of pneumonia. Oxygen levels were OK. INR's: 08/31/20 1.3 09/03/20 2.3 Blood sugars were as high as 345. Hemoglobin A1c was 10. RECOMMENDATIONS FOR FOLLOW-UP: Home health nurses to check INR on Friday 09/07 and send results to [facility]. Home health nurses will help with diabetes management at home for a while. Dr. Butler may refer you to the [facility] for ongoing assistance. OTHER INSTRUCTIONS: Seek medical attention if you have: * temperature above 101 * chest pain or trouble breathing * abdominal pain, nausea, vomiting * diarrhea, dark stools or bloody stools * any unanswered questions or concerns Call [phone] if symptoms are severe. Please take good care of yourself. Call if you have any questions or problems. You can reach a [facility] hospitalist on duty at [facility] 24 hours a day by calling [phone]. My cell # is [phone]. ADDITIONAL INSTRUCTIONS FOR COVID-19: Home Isolation COVID-19 Instructions The following information about Home Isolation is from the CDC Website: https://www.cdc.gov/coronavirus/2019-ncov/hcp/jgijexyo-qwyyjhg-pjopar.html Stay home except to get medical care People who are mildly ill with COVID-19 are able to isolate at home during their illness. You should restrict activities outside your home, except for getting medical care. Do not go to work, school, or public areas. Avoid using public transportation, ride-sharing, or taxis. Separate yourself from other people and animals in your home People: As much as possible, you should stay in a specific room and away from other people in your home. Also, you should use a separate bathroom, if available. Animals: You should restrict contact with pets and other animals while you are sick with COVID-19, just like you would around other people. Although there have not been reports of pets or other animals becoming sick with COVID-19, it is still recommended that people sick with COVID-19 limit contact with animals until more information is known about the virus. When possible, have another member of your household care for your animals while you are sick. If you are sick with COVID-19, avoid contact with your pet, including petting, snuggling, being kissed or licked, and sharing food. If you must care for your pet or be around animals while you are sick, wash your hands before and after you interact with pets and wear a face mask. Call ahead before visiting your doctor If you have a medical appointment, call the healthcare provider and tell them that you have or may have COVID-19. This will help the healthcare providers office take steps to keep other people from getting infected or exposed. Wear a face mask You should wear a face mask when you are around other people (e.g., sharing a room or vehicle) or pets and before you enter a healthcare providers office. If you are not able to wear a face mask (for example, because it causes trouble breathing), then people who live with you should not stay in the same room with you, or they should wear a face mask if they enter your room. Cover your coughs and sneezes Cover your mouth and nose with a tissue when you cough or sneeze. Throw used tissues in a lined trash can. Immediately wash your hands with soap and water for at least 20 seconds or, if soap and water are not available, clean your hand s with an alcohol-based hand infrastructure manager that contains at least 60% alcohol. Clean your hands often Wash your hands often with soap and water for at least 20 seconds, especially after blowing your nose, coughing, or sneezing; going to the bathroom; and before eating or preparing food. If soap and water are not readily available, use an alcohol-based hand infrastructure manager with at least 60% alcohol, covering all surfaces of your hands and rubbing them together until they feel dry. Soap and water are the best option if hands are visibly dirty. Avoid touching your eyes, nose, and mouth with unwashed hands. Avoid sharing personal household items You should not share dishes, drinking glasses, cups, eating utensils, towels, or bedding with other people or pets in your home. After using these items, they should be washed thoroughly with soap and water. Clean all high-touch surfaces everyday High touch surfaces include counters, tabletops, doorknobs, bathroom fixtures, toilets, phones, keyboards, tablets, and bedside tables. Also, clean any surfaces that may have blood, stool, or body fluids on them. Use a household cleaning spray or wipe, according to the label instructions. Labels contain instructions for safe and effective use of the cleaning product including precautions you should take when applying the product, such as wearing gloves and making sure you have good ventilation during use of the product. Monitor your symptoms Seek prompt medical attention if your illness is worsening (e.g., difficulty breathing).Beforeseeking care, call your healthcare provider and tell them that you have, or are being evaluated for, COVID-19. Put on a face mask before y ou enter the facility. These steps will help the healthcare providers office to keep other people in the office or waiting room from getting infected or exposed. Ask your healthcare provider to call the local or state health department. Persons who are placed under active monitoring or facilitated self- monitoring should follow instructions provided by their local health department or occupational health professionals, as appropriate. When working with your local health department check their available hours. If you have a medical emergency and need to call 911, notify the dispatch personnel that you have, or are being evaluated for COVID-19. If possible, put on a face mask before emergency medical services arrive. Discontinuing home isolation Patients with confirmed COVID-19 should remain under home isolation precautions until the risk of secondary transmission to others is thought to be low. The decision to discontinue home isolation precautions should be made on a [id number] basis, in consultation with healthcare providers and state and local health departments. MORE INFORMATION FROM CDC: Who needs to quarantine? People who have been in close contact with someone who has COVID-19excluding people who have had COVID-19 within the past 3 months. People who have tested positive for COVID-19 do not need to quarantine or get tested again for up to 3 months as long as they do not develop symptoms again. People who develop symptoms again within 3 months of their first bout of COVID- 19 may need to be tested again if there is no other cause identified for their symptoms. What counts as close contact? You were within 6 feet of someone who has COVID-19 for a total of 15 minutes or more You provided care at home to someone who is sick with COVID-19 You had direct physical contact with the person (hugged or kissed them) You shared eating or drinking utensils They sneezed, coughed, or somehow got respiratory droplets on you Steps to take Stay home and monitor your health Stay home for 14 days after your last contact with a person who has COVID-19 Watch for fever (100.4?F), cough, shortness of breath, or other symptoms of COVID-19 If possible, stay away from others, especially people who are at higher risk for getting very sick from COVID-19 When You Can be Around Others After You Had or Likely Had COVID-19 You can be around others after: 10 days since symptoms first appeared and 24 hours with no fever without the use of fever-reducing medications and Other symptoms of COVID-19 are improving* *Loss of taste and smell may persist for weeks or months after recovery and need not delay the end of isolation? Most people do not require testing to decide when they can be around others; however, if your healthcare provider recommends testing, they will let you know when you can resume being around others based on your test results. Note that these recommendations do not apply to persons with severe COVID-19 or with severely weakened immune systems (immunocompromised). These persons should follow the guidance below for I was severely ill with COVID-19 or have a severely weakened immune system (immunocompromised) due to a health condition or medication. When can I be around others? Pending Studies at Discharge: No Stand-Alone Forms: My [facility] Stitch, Smoking Cessation Medications and DC Order Prescriptions: New metformin 1,000 mg tablet,ER kwan.retention 24 hr 1,000 mg PO BID Qty: 60 RF: 5 Lantus Solostar U-100 Insulin 100 unit/mL (3 mL) insulin pen 30 unit subcut QAM Qty: 15 RF: 0 (DME) pen needle, diabetic [BD Ultra-Fine Yennifer Pen Needle] 32 gauge x 5/32" needle See Rx Instructions .ROUTE .MEDSUPPLY Qty: 50 RF: 7 Continued metoprolol tartrate 50 mg tablet 50 mg PO BID RF: 0 losartan 100 mg tablet 100 mg PO DAILY RF: 0 nitroglycerin 0.4 mg tablet, sublingual 0.4 mg SL DIRECTED PRN (Reason: Chest Pain) RF: 0 rosuvastatin 20 mg tablet 20 mg PO HS RF: 0 cholecalciferol (vitamin D3) 5,000 unit capsule 5,000 units PO DAILY RF: 0 gabapentin 300 mg capsule 300 mg PO TID Qty: 90 RF: 2 furosemide [Lasix] 20 mg tablet See Rx Instructions .ROUTE .COMPLEX RF: 0 Jardiance 25 mg tablet 25 mg PO DAILY RF: 0 potassium chloride 10 mEq tablet,ER particles/crystals See Rx Instructions .ROUTE .COMPLEX RF: 0 warfarin 2 mg tablet 2 mg PO DIRECTED Qty: 0 RF: 0 Discontinued glimepiride 1 mg tablet 2 mg PO QAM RF: 0 metformin 500 mg tablet extended release 24 hr See Rx Instructions .ROUTE .COMPLEX RF: 0 Discharge Orders: Discharge Order (Routine); Ordered 09/03/20 Ordered By: Keith Arce Admission Data Admit Date/Time: 08/31/20 19:29 Attending Provider: Keith Arce Admit Provider: Lacho Levi Primary Care Provider: Keon Butler Other Providers: Lacho Levi ; Christopher Sanderson ; Jim Covington ; [facility] Other Interventions: Discharge Summary Assessment (RN) Last Done: 09/03/20 16:47
== END 2020-09-03 18:15 | disposition home health service (06) | DRG 178 ==
LOC: ED 15:12 → 2S 19:29 → SUATTDRO 19:29 → 2S 22:54

== ENCOUNTER 2022-02-15 10:41 | Inpatient (IN) ==
[2022-02-15 11:39] LABS: Basophils # (auto) 0.04 K/uL (0-0.2); Basophils % (auto) 0.4 %; Eosinophils # (auto) 0.07 K/uL (0-0.5); Eosinophils % (auto) 0.7 %; Hematocrit (blood only) 29.5 % (37-47); Hemoglobin 9.5 g/dL (12.0-16.0); Immature Granulocytes # (auto) 0.03 K/uL (0.00-0.02); Immature Granulocytes % (auto) 0.3 %; Lymphocytes # (auto) 2.06 K/uL (1.2-3.4); Lymphocytes % (auto) 21.3 %; Mean Corpuscular Hemoglobin 28.4 pg (25-34); Mean Corpuscular Hgb Conc 32.2 g/dL (32-36); Mean Corpuscular Volume 88.3 fL (80-100); Mean Platelet Volume 9.3 fL (7.4-10.4); Monocytes % (auto) 7.2 %; Neutrophils # (auto) 6.79 K/uL (1.4-6.5); Neutrophils % (auto) 70.1 %; Platelet Count 452 K/uL (130-400); RDW Coefficient of Variation 14.8 % (11.5-14.5); RDW Standard Deviation 47.6 fL (36.4-46.3); Red Blood Count 3.34 M/uL (4.2-5.4); White Blood Count 9.69 K/uL (4.8-10.8)
--- NOTE | 2022-02-15 11:41 | Emergency Department Note ---
History of Present Illness General Chief complaint: Cardiac Assessment Stated complaint: HARD TO BREATH, BRICK PITCHER REFERRED Time Seen by Provider: 02/15/22 11:15 Source: patient, family, RN notes reviewed and old records reviewed Mode of arrival: ambulatory Limitations: no limitations History of Present Illness Maximum Pain Intensity: 0 This patient is a 81-year-old female who comes in after having shortness of breath that became worse over the last several days or so. It is more when she walks and lays down or bends. She does have chronic lower extremity edema she takes Lasix for this but has not been taking it much lately because it makes her urinate too much and she cannot make her doctor's appointments. No chest pain but occasionally does have some heaviness. She thinks she may have had some issa ght gain but she did not actually measure. No fever. No cough. No abdominal pain. She has a chronic headache which is unchanged. She have a pacemaker. She was followed today by pain management Dr. Valdes office and they transferred her to the ER after talking to Dayton Momin who is her cardiac care provider. She does take Coumadin. Home Medications Medication Instructions Recorded Confirmed Type cholecalciferol (vitamin D3) 125 5,000 units PO HS 06/25/19 02/15/22 History mcg (5,000 unit) capsule losartan 100 mg tablet 100 mg PO QAM 06/25/19 02/15/22 History metoprolol tartrate 50 mg tablet 50 mg PO BID tab 06/25/19 02/15/22 History nitroglycerin 0.4 mg sublingual 0.4 mg SL DIRECTED PRN 06/25/19 02/15/22 History tablet rosuvastatin 20 mg tablet 20 mg PO HS 06/25/19 02/15/22 History furosemide 20 mg tablet (Lasix) See Rx Instructions .ROUTE 10/24/19 02/15/22 History .COMPLEX tab empagliflozin 25 mg tablet 25 mg PO QAM 08/31/20 02/15/22 History (Jardiance) potassium chloride 10 mEq See Rx Instructions .ROUTE .COMPLEX 08/31/20 02/15/22 History tablet,extended release(part/cryst) pen needle, diabetic 32 gauge x #50 ea 09/03/20 Rx 32" (BD Ultra-Fine Yennifer Pen Needle) warfarin 2 mg tablet 2 mg PO DIRECTED #0 tab 09/03/20 02/15/22 Rx insulin glargine 100 unit/mL (3 24 unit SUBCUT QAM 02/15/22 02/15/22 History mL) subcutaneous pen (Lantus Solostar U-100 Insulin) metformin 1,000 mg 24 hr 1,000 mg PO BIDM 02/15/22 02/15/22 History tablet,extended release Allergies Allergy/AdvReac Type Severity Reaction Status Date / Time lisinopril Allergy Intermediate Cough Unverified 02/15/22 13:04 cefazolin Allergy Unknown CEPHALEXIN-PT Verified 02/15/22 13:04 DOESN'T REMEMBER WHAT HAPPENED tetanus toxoid, adsorbed Allergy Unknown LOCAL Verified 02/15/22 13:04 REACTION/FEVER oxycodone AdvReac Unknown NAUSEA/STOMACH Verified 02/15/22 13:04 PAINS Past Med/Surg History Medical History 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 Cardiac pacemaker Chronic anticoagulation Coronary atherosclerosis COVID-19 Diabetes mellitus type 2 with complications DISH (diffuse idiopathic skeletal hyperostosis) Do not resuscitate status Dyslipidemia HTN (hypertension) Hyponatremia IBS (irritable bowel syndrome) Low back pain Pulmonary HTN Type 2 diabetes mellitus Surgical History Aortocoronary bypass status H/O: hysterectomy Hx of appendectomy Hx of CABG Family History Other No pertinent family history in first degree relatives Social History Smoking Status: Never smoker Hx Alcohol Use: No Hx Substance Use: No Preferred Language: French Communication Ability: Effective Visual Impairment: No Limitations Hearing Ability: Normal Particle Board Supervisor Required: No Beliefs That Will Affect Care: None marital status: Current Living Situation: Spouse current occupational status: retired Feels Safe at Home: Yes Assistive Devices: None Review of Systems A total of 10 systems reviewed and were otherwise negative Physical Exam Vital Signs Vital Signs - 24 hr 02/15/22 10:50 02/15/22 10:59 Temperature 36.3 C L Temperature Source Temporal Artery Scan Pulse Rate 80 Respiratory Rate 24 Respiratory Effort / Characteristics Non-Labored Spontaneous Respiratory Depth Normal Normal Blood Pressure 120/70 Blood Pressure Mean 86 Pulse Oximetry 99 97 Oxygen Delivery Method Room Air Room Air Oxygen Flow Rate 0 Fraction of Inspired Oxygen 97 Sepsis Recent Fever Within 48 Hours No Sepsis New/Unexplained Change in Mental Status No Sepsis Action Taken by Nursing No Action Required General: Well developed well nourished not ill-appearing older female who appears in no acute distress, breathing comfortably on room air. Normal speech HEENT: Normal cephalic atraumatic. Pupils are equal round and reactive to light. Extraocular movements are intact. Oropharynx is pink with moist mucous membranes. No swelling of the mouth lips or tongue. Neck: Supple with a midline trachea. No meningeal signs or stiffness, no JVD or bruits. No Stridor. Chest: Clear to auscultation bilaterally. No wheezes or rhonchi. No increased work of breathing. Heart: Regular rate and rhythm without murmurs or gallops. Abdomen: Soft nontender, nondistended without rebound guarding or rigidity. Rectal (performed in the presence of a female nurse experimental mechanic): Normal tone brown stool guaiac negative Extremities: No cyanosis clubbing. She has bilateral lower extremity pitting edema no calf tenderness or assymetry Spine/Back. Non tender to palpation. No CVA tenderness Skin: Good turgor without rashes. Neurologic exam: Cranial nerves two through 12 are intact. Motor and sensation are intact and symmetrical throughout. Course Administered Medications Discontinued Medications Ioversol (Optiray 320 125ml) 121 ml IV ONCE ONE Stop: 02/15/22 14:22 Last Admin: 02/15/22 14:21 Dose: 121 ml Documented by: [id number] Medical Decision Making Differential Diagnosis CHF, acute coronary syndrome, arrhythmia, electrolyte or metabolic abnormality, infection Medical Records Attestation: I reviewed the patient's medical records. Home Medications Current Medication List: was personally reviewed by me Laboratory Data Attestation: I reviewed the patient's lab results. Result diagrams: 02/15/22 11:14 02/15/22 14:08 Lab Results 02/15/22 02/15/22 02/15/22 Range/Units 11:14 11:14 11:14 WBC 9.69 (4.8-10.8) K/uL RBC 3.34 L (4.2-5.4) M/uL Hgb 9.5 L (12.0-16.0) g/dL Hct 29.5 L (37-47) % MCV 88.3 (80-100) fL MCH 28.4 (25-34) pg MCHC 32.2 (32-36) g/dL RDW Std Deviation 47.6 H (36.4-46.3) fL RDW Coeff of Alex 14.8 H (11.5-14.5) % Plt Count 452 H (130-400) K/uL MPV 9.3 (7.4-10.4) fL Immature Gran % (Auto) 0.3 % Neut % (Auto) 70.1 % Lymph % (Auto) 21.3 % [place] % (Auto) 7.2 % Eos % (Auto) 0.7 % Baso % (Auto) 0.4 % Neut # (Auto) 6.79 H (1.4-6.5) K/uL Lymph # (Auto) 2.06 (1.2-3.4) K/uL [place] # (Auto) 0.70 H (0.11-0.59) K/uL Eos # (Auto) 0.07 (0-0.5) K/uL Baso # (Auto) 0.04 (0-0.2) K/uL Immature Gran # (Auto) 0.03 H (0.00-0.02) K/uL PT 21.4 H (9.0-12.0) Seconds INR 2.1 H (0.9-1.1) APTT 32.5 H (21.0-31.0) Seconds PTT Ratio 1.2 Sodium (136-145) mmol/L Potassium Chloride (98-107) mmol/L Carbon Dioxide (21-32) mmol/L Anion Gap (3-11) BUN (6-23) mg/dl Creatinine (0.6-1.2) mg/dl Est Cr Clr Drug Dosing Est GFR ( Amer) ml/min Est GFR (Non-Af Amer) ml/min BUN/Creatinine Ratio (10-20) Glucose (70-99(Fasting)) mg/dl Calcium (8.5-10.1) mg/dl Total Bilirubin (0.2-1.0) mg/dl AST ALT (7-52) U/L Alkaline Phosphatase (34-104) U/L Troponin I High Sens 6.1 (0-14) pg/ml B-Natriuretic Peptide (0-100) pg/ml Total Protein (6.0-8.3) gm/dl Albumin (3.4-5.0) gm/dl Globulin (2.5-4.0) gm/dl Albumin/Globulin Ratio (0.9-2) Lipase (11-82) U/L SARS-CoV-2, RNA, NAAT (NEGATIVE) Blood Type Antibody Screen Crossmatch 02/15/22 02/15/22 02/15/22 Range/Units 11:14 11:14 12:05 WBC (4.8-10.8) K/uL RBC (4.2-5.4) M/uL Hgb (12.0-16.0) g/dL Hct (37-47) % MCV (80-100) fL MCH (25-34) pg MCHC (32-36) g/dL RDW Std Deviation (36.4-46.3) fL RDW Coeff of Alex (11.5-14.5) % Plt Count (130-400) K/uL MPV (7.4-10.4) fL Immature Gran % (Auto) % Neut % (Auto) % Lymph % (Auto) % [place] % (Auto) % Eos % (Auto) % Baso % (Auto) % Neut # (Auto) (1.4-6.5) K/uL Lymph # (Auto) (1.2-3.4) K/uL [place] # (Auto) (0.11-0.59) K/uL Eos # (Auto) (0-0.5) K/uL Baso # (Auto) (0-0.2) K/uL Immature Gran # (Auto) (0.00-0.02) K/uL PT (9.0-12.0) Seconds INR (0.9-1.1) APTT (21.0-31.0) Seconds PTT Ratio Sodium 135 L (136-145) mmol/L Potassium TNP Chloride 102 (98-107) mmol/L Carbon Dioxide 24 (21-32) mmol/L Anion Gap 9 (3-11) BUN 21 (6-23) mg/dl Creatinine 0.99 (0.6-1.2) mg/dl Est Cr Clr Drug Dosing Not Reportable Est GFR ( Amer) 62.8 ml/min Est GFR (Non-Af Amer) 54.2 ml/min BUN/Creatinine Ratio 21.2 H (10-20) Glucose 300 H (70-99(Fasting)) mg/dl Calcium 9.0 (8.5-10.1) mg/dl Total Bilirubin 0.4 (0.2-1.0) mg/dl AST TNP ALT 36 (7-52) U/L Alkaline Phosphatase 49 (34-104) U/L Troponin I High Sens (0-14) pg/ml B-Natriuretic Peptide 242 H (0-100) pg/ml Total Protein 7.4 (6.0-8.3) gm/dl Albumin 3.8 (3.4-5.0) gm/dl Globulin 3.6 (2.5-4.0) gm/dl Albumin/Globulin Ratio 1.1 (0.9-2) Lipase 54 (11-82) U/L SARS-CoV-2, RNA, NAAT NEGATIVE (NEGATIVE) Blood Type Antibody Screen Crossmatch 02/15/22 02/15/22 02/15/22 Range/Units 12:49 14:07 14:07 WBC (4.8-10.8) K/uL RBC (4.2-5.4) M/uL Hgb (12.0-16.0) g/dL Hct (37-47) % MCV (80-100) fL MCH (25-34) pg MCHC (32-36) g/dL RDW Std Deviation (36.4-46.3) fL RDW Coeff of Alex (11.5-14.5) % Plt Count (130-400) K/uL MPV (7.4-10.4) fL Immature Gran % (Auto) % Neut % (Auto) % Lymph % (Auto) % [place] % (Auto) % Eos % (Auto) % Baso % (Auto) % Neut # (Auto) (1.4-6.5) K/uL Lymph # (Auto) (1.2-3.4) K/uL [place] # (Auto) (0.11-0.59) K/uL Eos # (Auto) (0-0.5) K/uL Baso # (Auto) (0-0.2) K/uL Immature Gran # (Auto) (0.00-0.02) K/uL PT (9.0-12.0) Seconds INR (0.9-1.1) APTT (21.0-31.0) Seconds PTT Ratio Sodium (136-145) mmol/L Potassium Cancelled Chloride (98-107) mmol/L Carbon Dioxide (21-32) mmol/L Anion Gap (3-11) BUN (6-23) mg/dl Creatinine (0.6-1.2) mg/dl Est Cr Clr Drug Dosing Est GFR ( Amer) ml/min Est GFR (Non-Af Amer) ml/min BUN/Creatinine Ratio (10-20) Glucose (70-99(Fasting)) mg/dl Calcium (8.5-10.1) mg/dl Total Bilirubin (0.2-1.0) mg/dl AST Cancelled ALT (7-52) U/L Alkaline Phosphatase (34-104) U/L Troponin I High Sens 5.7 (0-14) pg/ml B-Natriuretic Peptide (0-100) pg/ml Total Protein (6.0-8.3) gm/dl Albumin (3.4-5.0) gm/dl Globulin (2.5-4.0) gm/dl Albumin/Globulin Ratio (0.9-2) Lipase (11-82) U/L SARS-CoV-2, RNA, NAAT (NEGATIVE) Blood Type A Positive Antibody Screen NEGATIVE Crossmatch See Detail 02/15/22 Range/Units 14:08 WBC (4.8-10.8) K/uL RBC (4.2-5.4) M/uL Hgb (12.0-16.0) g/dL Hct (37-47) % MCV (80-100) fL MCH (25-34) pg MCHC (32-36) g/dL RDW Std Deviation (36.4-46.3) fL RDW Coeff of Alex (11.5-14.5) % Plt Count (130-400) K/uL MPV (7.4-10.4) fL Immature Gran % (Auto) % Neut % (Auto) % Lymph % (Auto) % [place] % (Auto) % Eos % (Auto) % Baso % (Auto) % Neut # (Auto) (1.4-6.5) K/uL Lymph # (Auto) (1.2-3.4) K/uL [place] # (Auto) (0.11-0.59) K/uL Eos # (Auto) (0-0.5) K/uL Baso # (Auto) (0-0.2) K/uL Immature Gran # (Auto) (0.00-0.02) K/uL PT (9.0-12.0) Seconds INR (0.9-1.1) APTT (21.0-31.0) Seconds PTT Ratio Sodium (136-145) mmol/L Potassium 4.2 Chloride (98-107) mmol/L Carbon Dioxide (21-32) mmol/L Anion Gap (3-11) BUN (6-23) mg/dl Creatinine (0.6-1.2) mg/dl Est Cr Clr Drug Dosing Est GFR ( Amer) ml/min Est GFR (Non-Af Amer) ml/min BUN/Creatinine Ratio (10-20) Glucose (70-99(Fasting)) mg/dl Calcium (8.5-10.1) mg/dl Total Bilirubin (0.2-1.0) mg/dl AST 20 ALT (7-52) U/L Alkaline Phosphatase (34-104) U/L Troponin I High Sens (0-14) pg/ml B-Natriuretic Peptide (0-100) pg/ml Total Protein (6.0-8.3) gm/dl Albumin (3.4-5.0) gm/dl Globulin (2.5-4.0) gm/dl Albumin/Globulin Ratio (0.9-2) Lipase (11-82) U/L SARS-CoV-2, RNA, NAAT (NEGATIVE) Blood Type Antibody Screen Crossmatch Imaging Data Attestation: I personally reviewed and interpreted this imaging study as follows: My Impression: Chest x-rayno acute infiltrate, failure, pneumothorax seen. CT head-no acute hemorrhage or bleed seen Radiologist's Impression: Chest X-Ray 02/15/22 11:23 XR chest 1V portable CLINICAL HISTORY: Atypical chest pain. COMPARISON STUDY: Chest radiograph August 31, 2020. FINDINGS: Median sternotomy wires and dual lead left subclavian pacer are in place. Moderate cardiomegaly is noted without evidence for pulmonary edema. No pneumothorax or pleural effusion is present. No consolidation to suggest p neumonia. IMPRESSION: No acute cardiopulmonary findings. Cardiomegaly. ACT 112: Negative or not required by law. Electronically signed by: Slava Barnett M.D. 02/15/2022 11:52 AM Chest CTA 02/15/22 12:59 CT angio chest PE protocol CLINICAL HISTORY: PE TECHNIQUE: Multidetector row helical CT of the chest was performed with angiographic protocol. Coronal and sagittal reformations were obtained. Coronal and sagittal MIPS were obtained from the axial data set and were submitted for review. Automated dose lowering techniques and/or adjustment according to patient size were utilized for this exam. Comparison: None available at the time of this dictation. FINDINGS: Lungs and pleura: There is a 4 mm nodule in the right middle lobe (series 6 image 161). Mosaic attenuation is seen. Heart and pericardium: Cardiomegaly is seen with biatrial enlargement. Vessels: No evidence of pulmonary embolism. Mediastinum and sandi: Subcentimeter lymph nodes are seen. Mild thickening of the distal esophagus is noted. Chest wall and lower neck: Subcentimeter thyroid nodules are noted which do not require follow-up by ACR criteria. Abdomen: A hiatal hernia is seen. Bones: Degenerative changes in the thoracic spine. IMPRESSION: 1. No evidence of pulmonary embolism. 2. 4 mm nodule in the right middle lobe. According to Fleischner criteria, no follow-up is required in low risk patients, in high-risk patients, a 12 month follow-up CT can be optionally performed. 3. Mosaic attenuation may reflect small airways disease. 4. Mild thickening of the distal esophagus, clinical correlation for esophagitis is recommended. ACT 112: Negative or not required by law. Electronically signed by: Manish Amato M.D. 02/15/2022 2:[address] 02/15/22 12:59 CT head/brain wo con CLINICAL HISTORY: headache Technique: Contiguous axial CT images of the head were acquired from the base of the skull to the vertex without intravenous contrast administration. Images were viewed in brain, subdural and bone windows. Automated dose lowering techniques and/or adjustment according to patient size were utilized for this exam. Comparison: None available at the time of this dictation. Findings: Areas of decreased attenuation are present in the periventricular and subcortical white matter bilaterally consistent with small vessel ischemic disease. Generalized cerebral atrophy with commensurate enlargement of the ventricles, sulci, and cisterns is also present. There is no acute intracranial hemorrhage or evidence of acute territorial infarction. No shift of the midline structures, mass effect, or extra-axial abnormalities are shown. Atherosclerotic calcifications are present in the intracranial segments of the internal carotid arteries. Imaged portions of the paranasal sinuses and mastoid air cells are clear. The orbits appear normal. There are no acute fractures of the calvaria or scalp swelling. Impression: No acute intracranial hemorrhage, no evidence of acute territorial infarction or other acute intracranial disease process. ACT 112: Negative or not required by law. Electronically signed by: Manish Amato M.D. 02/15/2022 2:31 PM Abdomen/Pelvis CT 02/15/22 13:24 CT SCAN OF THE ABDOMEN AND PELVIS WITH IV CONTRAST CLINICAL HISTORY: Anemia. COMPARISON STUDY: Abdominal CT dated 02/19/2010. TECHNIQUE: Following the IV administration of 121 cc of Optiray 320, CT scan of the abdomen and pelvis is performed from the lung bases to the proximal femora. Images are reviewed in the axial, sagittal, and coronal planes. IV contrast was administered without complication. A dose lowering technique was utilized adhering to the principles of ALARA. CT DOSE: 2028.16 mGy.cm FINDINGS: Lung bases: Pacemaker leads are noted. The heart is mildly enlarged and without pericardial effusion. The lung bases are clear. A small hiatal hernia is noted. Liver: The contrast-enhanced liver is normal in size, contour, and attenuation. There is no intrahepatic biliary ductal dilatation. The hepatic veins and portal veins are patent. Gallbladder: Unremarkable. Spleen: The spleen is normal in size. There is a wedge-shaped perfusion defect in the superior aspect of the spleen, best seen on image #26. Pancreas: Unremarkable. Adrenal glands: Unremarkable. Kidneys: The contrast enhanced kidneys demonstrate cortical atrophy and are without hydronephrosis. The kidneys enhance symmetrically. Abdominal vasculature: The abdominal aorta is normal in course and caliber noting advanced atherosclerotic calcification. Bowel: There are scattered colonic diverticula without CT evidence of acute diverticulitis. No bowel obstruction is seen. The appendix is not visualized. Peritoneum: There is no intraperitoneal free air or abdominal ascites. There is a small fat-containing umbilical hernia. Lymphadenopathy: None. Pelvic viscera: The bladder is normal as visualized. The uterus is surgically absent. No adnexal lesion is seen. Skeletal structures: The skeletal structures are heterogeneously osteopenic. Moderate lumbosacral spondylosis is observed. There is an age indeterminant compression deformity of L4. No lytic or blastic lesions are seen. IMPRESSION: 1. There is a wedge-shaped perfusion defect in the superior aspect of the spleen. The appearance is typical for a small splenic infarct and clinical correlation will be required. 2. There is an age indeterminant superior endplate compression deformity of L4. This may be chronic but is new from 2009. Correlate for point tenderness. 3. Additional findings as above. ACT 112: Negative or not required by law. Electronically signed by: Mushtaq Basilio M.D. 02/15/2022 2:43 PM ECG Data Attestation: I personally reviewed and interpreted this ECG as follows: Indication: + SOB/dyspnea and + weakness Rate (beats per minute): 80 Rhythm: + atrial fibrillation and + other (Intermittent paced rhythm) ECG Intervals/blocks: + Normal QRS ECG [place]: + Normal ECG ST segments: + Nonspecific ST abnormalities ECG Findings: no PACs or no PVCs Comparison ECG Date: from (08/31/20) Change: the following changes noted (Rate has increased) MDM Narrative This patient comes in as described above. She was placed in room B6. She is here for shortness of breath. Multiple blood testing was obtained IV access established. I did order chest x-ray EKG and BMP and cardiac biomarkers. I did discuss the case with Dayton Momin, her cardiac provider. The patient tells me that she is not taking her Lasix as she said it is supposed to because it makes her urinate too much and she cannot go to her doctor's appointments. Surprisingly her hemoglobin came back very low at 9.6 as her baseline is 14. I asked her about this she tells me she had teeth extracted at the beginning of January and had a lot of bleeding then she also had a nosebleed back in October. She does not report any blood or black colors in the stool. She is on a blood thinner however. Her INR was pubic at 2.1. She is nursing of electrolyte or metabolic abnormalities. Chest x-ray was clear. EKG does not suggest ischemic changes. She has 2 high-sensitivity troponins which were negative and 2 hours apart and therefore I do not think this was acute cardiac event. BNP was mildly elevated and she definitely has some peripheral edema but I do not think has any pulmonary edema. I did a CAT scan of her head and there is no acute intracranial hemorrhage. CT of the chest does not show any PE. CT the abdomen does not show any blood she does have possibly a small splenic infarct which I think is unrelated to her presentation so far. I do think she needs to be admitted/observed. I think her symptoms are likely from her significant anemia. She has been typed and crossed. [facility] Continuous cardiac monitoring: An order was placed in EMR for continuous rn cardiac. Upon my interpretation she was noted to be in A. fib with a rate of 70. Impression & Plan Weakness, 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, Pacemaker, Anemia, Lab test negative for COVID- 19 virus, Bilateral edema of lower extremity, Headache Discharge Plan Visit Data Chief Complaint: Cardiac Assessment Stated Complaint: HARD TO BREATH, BRICK PITCHER REFERRED ED Provider: Jemal Skaggs Discharge Problem: Weakness, 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, Pacemaker, Anemia, Lab test negative for COVID- 19 virus, Bilateral edema of lower extremity, Headache, Current use of custodial anticoagulation, Infarction of spleen Patient Disposition: Admitted As Inpatient Forms Stand Alone Forms: My [facility] Prescriptions Prescriptions: No Action metoprolol tartrate 50 mg tablet 50 mg PO BID RF: 0 losartan 100 mg tablet 100 mg PO QAM RF: 0 nitroglycerin 0.4 mg tablet, sublingual 0.4 mg SL DIRECTED PRN (Reason: Chest Pain) RF: 0 rosuvastatin 20 mg tablet 20 mg PO HS RF: 0 cholecalciferol (vitamin D3) 5,000 unit capsule 5,000 units PO HS RF: 0 furosemide [Lasix] 20 mg tablet See Rx Instructions .ROUTE .COMPLEX RF: 0 Jardiance 25 mg tablet 25 mg PO QAM RF: 0 potassium chloride 10 mEq tablet,ER particles/crystals See Rx Instructions .ROUTE .COMPLEX RF: 0 warfarin 2 mg tablet 2 mg PO DIRECTED Qty: 0 RF: 0 (DME) pen needle, diabetic [BD Ultra-Fine Yennifer Pen Needle] 32 gauge x 5/32" needle See Rx Instructions .ROUTE .MEDSUPPLY Qty: 50 RF: 7 metformin 1,000 mg tablet,ER kwan.retention 24 hr 1,000 mg PO BIDM RF: 0 Lantus Solostar U-100 Insulin 100 unit/mL (3 mL) insulin pen 24 unit subcut QAM RF: 0 Referrals Referrals: Laverne Becker DO [Primary Care Provider] -
[2022-02-15 11:47] LABS: INR 2.1 (0.9-1.1); Partial Thromboplastin Ratio 1.2; Partial Thromboplastin Time 32.5 Seconds (21.0-31.0); Prothrombin Time 21.4 Seconds (9.0-12.0)
--- NOTE | 2022-02-15 11:54 | XRay Report ---
XR chest 1V portable CLINICAL HISTORY: Atypical chest pain. COMPARISON STUDY: Chest radiograph August 31, 2020. FINDINGS: Median sternotomy wires and dual lead left subclavian pacer are in place. Moderate cardiome kahlil is noted without evidence for pulmonary edema. No pneumothorax or pleural effusion is present. N o consolidation to suggest pneumonia. IMPRESSION: No acute cardiopulmonary findings. Cardiomegaly. ACT 112: Negative or not required by law. Electronically signed by: Slava Barnett M.D. 02/15/2022 11:52 AM
[2022-02-15 12:05] LABS: Alanine Aminotransferase 36 U/L (7-52); Albumin Globulin Ratio 1.1 (0.9-2); Albumin Level 3.8 gm/dl (3.4-5.0); Alkaline Phosphatase 49 U/L (34-104); Anion Gap 9 (3-11); BUN Creatinine Ratio 21.2 (10-20); Bilirubin,Total 0.4 mg/dl (0.2-1.0); Blood Urea Nitrogen 21 mg/dl (6-23); Carbon Dioxide 24 mmol/L (21-32); Chloride 102 mmol/L (98-107); Est GFR (African American) 62.8 ml/min; Est GFR (Non-African American) 54.2 ml/min; Globulin 3.6 gm/dl (2.5-4.0); Glucose 300 mg/dl (70-99(Fasting)); Lipase 54 U/L (11-82); Sodium 135 mmol/L (136-145); Total Protein 7.4 gm/dl (6.0-8.3)
[2022-02-15] MEDS ORDERED: SODIUM CHLORIDE 0.9% 250 ML IV PRN (13:15)
[2022-02-15] MEDS ORDERED: OPTIRAY 320 125ml IV ONE (14:21)
--- NOTE | 2022-02-15 14:32 | CT Scan Report ---
CT head/brain wo con CLINICAL HISTORY: headache Technique: Contiguous axial CT images of the head were acquired from the base of the skull to the margret mallika without intravenous contrast administration. Images were viewed in brain, subdural and bone [facility]. Automated dose lowering techniques and/or adjustment according to patient size were utilized for this exam. Comparison: None available at the time of this dictation. Findings: Areas of decreased attenuation are present in the periventricular and subcortical white matter bilate rally consistent with small vessel ischemic disease. Generalized cerebral atrophy with commensurate e nlargement of the ventricles, sulci, and cisterns is also present. There is no acute intracranial hem orrhage or evidence of acute territorial infarction. No shift of the midline structures, mass effect, or extra-axial abnormalities are shown. Atherosclerotic calcifications are present in the intracran ial segments of the internal carotid arteries. Imaged portions of the paranasal sinuses and mastoid air cells are clear. The orbits appear normal. There are no acute fractures of the calvaria or scalp swelling. Impression: No acute intracranial hemorrhage, no evidence of acute territorial infarction or other acute intracra nial disease process. ACT 112: Negative or not required by law. Electronically signed by: Manish Amato M.D. 02/15/2022 2:31 PM
[2022-02-15 14:46] LABS: Potassium 4.2 mmol/L (3.5-5.1)
--- NOTE | 2022-02-15 14:46 | CT Scan Report ---
CT SCAN OF THE ABDOMEN AND PELVIS WITH IV CONTRAST CLINICAL HISTORY: Anemia. COMPARISON STUDY: Abdominal CT dated 02/19/2010. TECHNIQUE: Following the IV administration of 121 cc of Optiray 320, CT scan of the abdomen and pelv is is performed from the lung bases to the proximal femora. Images are reviewed in the axial, sagitta l, and coronal planes. IV contrast was administered without complication. A dose lowering technique w as utilized adhering to the principles of ALARA. CT DOSE: 2028.16 mGy.cm FINDINGS: Lung bases: Pacemaker leads are noted. The heart is mildly enlarged and without pericardial effusion. The lung bases are clear. A small hiatal hernia is noted. Liver: The contrast-enhanced liver is normal in size, contour, and attenuation. There is no intrahepa tic biliary ductal dilatation. The hepatic veins and portal veins are patent. Gallbladder: Unremarkable. Spleen: The spleen is normal in size. There is a wedge-shaped perfusion defect in the superior aspect of the spleen, best seen on image #26. Pancreas: Unremarkable. Adrenal glands: Unremarkable. Kidneys: The contrast enhanced kidneys demonstrate cortical atrophy and are without hydronephrosis. T he kidneys enhance symmetrically. Abdominal vasculature: The abdominal aorta is normal in course and caliber noting advanced atheroscle rotic calcification. Bowel: There are scattered colonic diverticula without CT evidence of acute diverticulitis. No bowel obstruction is seen. The appendix is not visualized. Peritoneum: There is no intraperitoneal free air or abdominal ascites. There is a small fat-containin g umbilical hernia. Lymphadenopathy: None. Pelvic viscera: The bladder is normal as visualized. The uterus is surgically absent. No adnexal lesi on is seen. Skeletal structures: The skeletal structures are heterogeneously osteopenic. Moderate lumbosacral spo ndylosis is observed. There is an age indeterminant compression deformity of L4. No lytic or blastic lesions are seen. IMPRESSION: 1. There is a wedge-shaped perfusion defect in the superior aspect of the spleen. The appearance is t ypical for a small splenic infarct and clinical correlation will be required. 2. There is an age indeterminant superior endplate compression deformity of L4. This may be chronic b ut is new from 2009. Correlate for point tenderness. 3. Additional findings as above. ACT 112: Negative or not required by law. Electronically signed by: Mushtaq Basilio M.D. 02/15/2022 2:43 PM
--- NOTE | 2022-02-15 14:51 | CT Scan Report ---
CT angio chest PE protocol CLINICAL HISTORY: PE TECHNIQUE: Multidetector row helical CT of the chest was performed with angiographic protocol. Wolfe l and sagittal reformations were obtained. Coronal and sagittal MIPS were obtained from the axial jace a set and were submitted for review. Automated dose lowering techniques and/or adjustment according to patient size were utilized for this exam. Comparison: None available at the time of this dictation. FINDINGS: Lungs and pleura: There is a 4 mm nodule in the right middle lobe (series 6 image 161). Mosaic attenu ation is seen. Heart and pericardium: Cardiomegaly is seen with biatrial enlargement. Vessels: No evidence of pulmonary embolism. Mediastinum and sandi: Subcentimeter lymph nodes are seen. Mild thickening of the distal esophagus is noted. Chest wall and lower neck: Subcentimeter thyroid nodules are noted which do not require follow-up by ACR criteria. Abdomen: A hiatal hernia is seen. Bones: Degenerative changes in the thoracic spine. IMPRESSION: 1. No evidence of pulmonary embolism. 2. 4 mm nodule in the right middle lobe. According to Fleischner criteria, no follow-up is required in low risk patients, in high-risk patients, a 12 month follow-up CT can be optionally performed. 3. Mosaic attenuation may reflect small airways disease. 4. Mild thickening of the distal esophagus, clinical correlation for esophagitis is recommended. ACT 112: Negative or not required by law. Electronically signed by: Manish Amato M.D. 02/15/2022 2:50 PM
--- NOTE | 2022-02-15 15:33 | Electrocardiogram Report ---
Test Reason : Blood Pressure : / mmHG Vent. Rate : 080 BPM Atrial Rate : 067 BPM P-R Int : 000 ms QRS Dur : 082 ms QT Int : 356 ms P-R-T Axes : 000 011 174 degrees QTc Int : 410 ms 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 with frequent ventricular-paced complexes Abnormal ECG When compared with ECG of 31-AUG-2020 16:07, Electronic ventricular pacemaker now present Vent. rate has decreased BY 51 BPM Confirmed by Yanick Bonilla ([id number]) on 02/15/2022 3:33:02 PM Referred By: Confirmed By:Yanick Bonilla
--- NOTE | 2022-02-15 16:12 | History & Physical Report ---
Date of Service February 15, 2022 Assessment & Plan (1) Acute blood loss anemia: Plan: Pt with multiple episodes of bleeding s/p dental extraction earlier this month - may have been correlated with resumption of warfarin post-procedure. No bleeding for past 7-10 days. Hgb drop from 15.1 on 01/31/22 to 9.5 today. - Admit for observation - Follow H&H for stability - holding transfusion for now but may need to reevaluate if persistently symptomatic anemia - Hold warfarin for now due to recent bleeding (2) Dyspnea on exertion: Plan: Suspect related to #1. 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 Pt seen and reviewed with collaborating physician, Dr. Gaines. Plan of care discussed and as outlined above. DVT Prophylaxis: SCDs for now, on chronic AC but currently on hold due to recent bleeding Code Status: DNR/DNI Nemo Rutledge PA-C History of Present Illness Chief Complaint: "trouble breathing" Primary Care Provider: Laverne Becker DO This is a 81 y/o female with a PMH atrial fibrillation on chronic anticoagulation, insulin-requiring DM2, pulmonary HTN, CKD 3a, DISH, dyslipidemia, diastolic heart failure, and CAD s/p CABG x2 who presented to the ED today with progressive breathing issues. Pt was at pain management and they were concerned about her breathing so they contacted cardiology who recommend ED evaluation. Pt reports dyspnea on exertion as a chronic issues but this has been worsening slowly over time but especially over the past 2-3 weeks. Pt does take Lasix for LE edema but reports that she has missed multiple doses lately because she didn't want to take it before her frequent appointments. She has noted some mild left chest pain that is not new although she cannot remember exactly when it started. She has had fatigue and weakness for the past 3 months but worse past several days. Of note, she had a dental extraction on January 25. She did hold her warfarin for five days but then restarted this. She reports that she has had three episodes of bleeding from the extraction site where she was "spitting blood for an hour" each time - estimates a cup of blood loss each time. She noted the she pulled out some pieces of the sutures during each episode of bleeding. Last episode at least a week ago. Her blood sugars have been running high since the extraction - she checks them daily in the AM and they've been around 200 (baseline 140s). Last A1c checked on 01/21/22 and was 8.9. Pt had some frequent episodes of epistaxis in October for which she was seen in the ED but these seem to have improved since then. Allergies Allergy/AdvReac Type Severity Reaction Status Date / Time lisinopril Allergy Intermediate Cough Unverified 02/15/22 13:04 cefazolin Allergy Unknown CEPHALEXIN-PT Verified 02/15/22 13:04 DOESN'T REMEMBER WHAT HAPPENED tetanus toxoid, adsorbed Allergy Unknown LOCAL Verified 02/15/22 13:04 REACTION/FEVER oxycodone AdvReac Unknown NAUSEA/STOMACH Verified 02/15/22 13:04 PAINS Home Medications Medication Instructions Recorded Confirmed Type cholecalciferol (vitamin D3) 125 5,000 units PO HS 06/25/19 02/15/22 History mcg (5,000 unit) capsule losartan 100 mg tablet 100 mg PO QAM 06/25/19 02/15/22 History nitroglycerin 0.4 mg sublingual 0.4 mg SL DIRECTED PRN 06/25/19 02/15/22 History tablet rosuvastatin 20 mg tablet 20 mg PO HS 06/25/19 02/15/22 History furosemide 20 mg tablet (Lasix) See Rx Instructions .ROUTE 10/24/19 02/15/22 History .COMPLEX tab empagliflozin 25 mg tablet 25 mg PO QAM 08/31/20 02/15/22 History (Jardiance) potassium chloride 10 mEq See Rx Instructions .ROUTE .COMPLEX 08/31/20 02/15/22 History tablet,extended release(part/cryst) warfarin 2 mg tablet 2 mg PO DIRECTED #0 tab 09/03/20 02/15/22 Rx aspirin 81 mg tablet 81 mg PO 3XWK 02/15/22 02/15/22 History insulin glargine 100 unit/mL (3 24 unit SUBCUT QAM 02/15/22 02/15/22 History mL) subcutaneous pen (Lantus Solostar U-100 Insulin) mecobalamin (vitamin B12) 1,000 1,000 mcg PO DAILY 02/15/22 02/15/22 History mcg chewable tablet (B12 Active) metformin 1,000 mg 24 hr 1,000 mg PO BIDM 02/15/22 02/15/22 History tablet,extended release metoprolol tartrate 100 mg tablet 100 mg PO BID 02/15/22 02/15/22 History Past Med/Surg History Medical History (Updated 02/15/22 @ 20:05 by Mimi Rutledge PA-C) 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 Cardiac pacemaker Chronic anticoagulation Coronary atherosclerosis COVID-19 Diabetes mellitus type 2 with complications DISH (diffuse idiopathic skeletal hyperostosis) Dyslipidemia History of pacemaker HTN (hypertension) IBS (irritable bowel syndrome) Low back pain Pulmonary HTN Type 2 diabetes mellitus Surgical History (Updated 02/15/22 @ 17:11 by Mimi Rutledge PA-C) H/O: hysterectomy Hx of appendectomy Hx of CABG Family History (Updated 02/15/22 @ 17:12 by Mimi Rutledge PA-C) Aunt Diabetes Uncle Diabetes Daughter Diabetes Social History Smoking Status: Never smoker Hx Alcohol Use: No Hx Substance Use: No Preferred Language: Nigerian Communication Ability: Effective Visual Impairment: No Limitations Hearing Ability: Normal Field Geologist Required: No Beliefs That Will Affect Care: None marital status: Current Living Situation: Spouse current occupational status: retired Other Information That Helps Us Care for You: No Feels Safe at Home: Yes Safety Concerns: Feels Safe At This Time Assistive Devices: Glasses Review of Systems Review of Systems: All systems reviewed & are unremarkable except as noted in HPI & below Constitutional: + fatigue and + weakness; no fever, no chills and no sweats Eyes: no diplopia Ear, Nose, Mouth, Throat: as per Subjective / HPI Respiratory: + dyspnea on exertion; no cough and no hemoptysis Cardiovascular: as per Subjective / HPI, + lightheadedness (with position changes) and + edema Gastrointestinal: + abdominal pain, + nausea and + vomiting; no blood in stools Genitourinary: no dysuria and no hematuria Musculoskeletal: + back pain and + radicular pain Integumentary: no yellowing of the skin Neurologic: + generalized weakness Psychiatric: no depression Physical Exam Constitutional: well developed and well nourished; no acute distress Eyes: + anicteric sclerae ENMT: lower gumline with healing extraction sites - no active bleeding, no erythema or purulent drainage Neck: trachea midline Respiratory: no respiratory distress and no labored breathing Auscultation: lungs clear to auscultation bilaterally; no rales, no rhonchi and no wheezes Cardiovascular: Rate/Rhythm: + irregularly irregular Vessels: dorsalis pedis pulses present and radial pulses present Extremities: + edema (1+ bilateral pitting) Gastrointestinal (Abdomen): Inspection/Auscultation: normal bowel sounds; abdomen not distended Percussion/Palpation: abdomen soft; abdomen nontender Musculoskeletal: Head/Neck/Chest: normocephalic, head atraumatic and neck supple Skin: no jaundice Neurologic: moves all extremities; no focal motor deficits Psychiatric: A+Ox3, euthymic affect Results & Data Results & Data ([facility]) Vital Signs (Past 12 Hours) Vital Signs Temp Pulse Resp BP Pulse Ox 02/15/22 16:00 73 12 142/90 H 98 02/15/22 15:30 63 16 163/69 H 100 02/15/22 15:01 71 22 129/81 100 02/15/22 15:00 66 13 100 02/15/22 14:31 16 144/78 H 02/15/22 14:30 16 02/15/22 14:28 26 H 02/15/22 14:01 168/67 H 02/15/22 13:23 71 32 H 98 02/15/22 13:00 71 15 143/81 H 02/15/22 12:30 75 25 H 126/58 L 96 02/15/22 12:00 81 29 H 02/15/22 11:30 68 24 100 02/15/22 11:06 73 21 100 02/15/22 10:59 97 02/15/22 10:50 36.3 C L 80 24 120/70 99 Laboratory Results Laboratory Results - last 24 hr 02/15/22 02/15/22 02/15/22 11:14 11:14 11:14 WBC 9.69 RBC 3.34 L Hgb 9.5 L Hct 29.5 L MCV 88.3 MCH 28.4 MCHC 32.2 RDW Std Deviation 47.6 H RDW Coeff of Alex 14.8 H Plt Count 452 H MPV 9.3 Immature Gran % (Auto) 0.3 Neut % (Auto) 70.1 Lymph % (Auto) 21.3 [place] % (Auto) 7.2 Eos % (Auto) 0.7 Baso % (Auto) 0.4 Neut # (Auto) 6.79 H Lymph # (Auto) 2.06 [place] # (Auto) 0.70 H Eos # (Auto) 0.07 Baso # (Auto) 0.04 Immature Gran # (Auto) 0.03 H PT 21.4 H INR 2.1 H APTT 32.5 H PTT Ratio 1.2 Sodium Potassium Chloride Carbon Dioxide Anion Gap BUN Creatinine Est Cr Clr Drug Dosing Est GFR ( Amer) Est GFR (Non-Af Amer) BUN/Creatinine Ratio Glucose Calcium Total Bilirubin AST ALT Alkaline Phosphatase Troponin I High Sens 6.1 B-Natriuretic Peptide Total Protein Albumin Globulin Albumin/Globulin Ratio Lipase SARS-CoV-2, RNA, NAAT Blood Type Blood Type Recheck Antibody Screen Crossmatch 02/15/22 02/15/22 02/15/22 11:14 11:14 12:05 WBC RBC Hgb Hct MCV MCH MCHC RDW Std Deviation RDW Coeff of Alex Plt Count MPV Immature Gran % (Auto) Neut % (Auto) Lymph % (Auto) [place] % (Auto) Eos % (Auto) Baso % (Auto) Neut # (Auto) Lymph # (Auto) [place] # (Auto) Eos # (Auto) Baso # (Auto) Immature Gran # (Auto) PT INR APTT PTT Ratio Sodium 135 L Potassium TNP Chloride 102 Carbon Dioxide 24 Anion Gap 9 BUN 21 Creatinine 0.99 Est Cr Clr Drug Dosing Not Reportable Est GFR ( Amer) 62.8 Est GFR (Non-Af Amer) 54.2 BUN/Creatinine Ratio 21.2 H Glucose 300 H Calcium 9.0 Total Bilirubin 0.4 AST TNP ALT 36 Alkaline Phosphatase 49 Troponin I High Sens B-Natriuretic Peptide 242 H Total Protein 7.4 Albumin 3.8 Globulin 3.6 Albumin/Globulin Ratio 1.1 Lipase 54 SARS-CoV-2, RNA, NAAT NEGATIVE Blood Type Blood Type Recheck Antibody Screen Crossmatch 02/15/22 02/15/22 02/15/22 12:49 14:07 14:07 WBC RBC Hgb Hct MCV MCH MCHC RDW Std Deviation RDW Coeff of Alex Plt Count MPV Immature Gran % (Auto) Neut % (Auto) Lymph % (Auto) [place] % (Auto) Eos % (Auto) Baso % (Auto) Neut # (Auto) Lymph # (Auto) [place] # (Auto) Eos # (Auto) Baso # (Auto) Immature Gran # (Auto) PT INR APTT PTT Ratio Sodium Potassium Cancelled Chloride Carbon Dioxide Anion Gap BUN Creatinine Est Cr Clr Drug Dosing Est GFR ( Amer) Est GFR (Non-Af Amer) BUN/Creatinine Ratio Glucose Calcium Total Bilirubin AST Cancelled ALT Alkaline Phosphatase Troponin I High Sens 5.7 B-Natriuretic Peptide Total Protein Albumin Globulin Albumin/Globulin Ratio Lipase SARS-CoV-2, RNA, NAAT Blood Type A Positive Blood Type Recheck Antibody Screen NEGATIVE Crossmatch See Detail 02/15/22 02/15/22 14:08 15:37 WBC RBC Hgb Hct MCV MCH MCHC RDW Std Deviation RDW Coeff of Alex Plt Count MPV Immature Gran % (Auto) Neut % (Auto) Lymph % (Auto) [place] % (Auto) Eos % (Auto) Baso % (Auto) Neut # (Auto) Lymph # (Auto) [place] # (Auto) Eos # (Auto) Baso # (Auto) Immature Gran # (Auto) PT INR APTT PTT Ratio Sodium Potassium 4.2 Chloride Carbon Dioxide Anion Gap BUN Creatinine Est Cr Clr Drug Dosing Est GFR ( Amer) Est GFR (Non-Af Amer) BUN/Creatinine Ratio Glucose Calcium Total Bilirubin AST 20 ALT Alkaline Phosphatase Troponin I High Sens B-Natriuretic Peptide Total Protein Albumin Globulin Albumin/Globulin Ratio Lipase SARS-CoV-2, RNA, NAAT Blood Type Blood Type Recheck Pending Antibody Screen Crossmatch Diagnostic Findings Chest X-ray 02/15/22 - IMPRESSION: No acute cardiopulmonary findings. Cardiomegaly. CTA Chest 02/15/22 - IMPRESSION: 1. No evidence of pulmonary embolism. 2. 4 mm nodule in the right middle lobe. According to Fleischner criteria, no follow-up is required in low risk patients, in high-risk patients, a 12 month follow-up CT can be optionally performed. 3. Mosaic attenuation may reflect small airways disease. 4. Mild thickening of the distal esophagus, clinical correlation for esophagitis is recommended. CT Head 02/15/22 - Impression: No acute intracranial hemorrhage, no evidence of acute territorial infarction or other acute intracranial disease process. CT Abd/Pel 02/15/22 - IMPRESSION: 1. There is a wedge-shaped perfusion defect in the superior aspect of the spleen. The appearance is typical for a small splenic infarct and clinical correlation will be required. 2. There is an age indeterminant superior endplate compression deformity of L4. This may be chronic but is new from 2009. Correlate for point tenderness. 3. Additional findings as above. Medications Administered Discontinued Medications Ioversol (Optiray 320 125ml) 121 ml IV ONCE ONE Stop: 02/15/22 14:22 Last Admin: 02/15/22 14:21 Dose: 121 ml Documented by: [id number] Code Status & VTE Plan VTE Prophylaxis Plan VTE Prophylaxis will be ordered: Yes Supervising Physician Co-Signing Physician Notes I have seen and examined the patient and have discussed the case with the provider above. I agree with the assessment and plan as stated. 81 yo F presents with progressive dyspnea on exertion and recent bleeding both from her dental extraction site after restarting warfarin, and from 1-2 episodes of epistaxis prior to the dental extraction. No blood per rectum or other bleeding/bruising reported. [place] Hb was 14, now 9.5. INR therapeutic and within range at 2.1.Unremarkable physical exam, not on oxygen at rest and no conversational dyspnea. Lungs CTAB and no peipheral edema. Labs as noted above. No indication for transfusion at this time. Serial H/H as above and echo, monitor on telemetry overnight. DO Eder (1) 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 type: longstanding persistent Qualified Code(s): I48.11 - Longstanding persistent atrial fibrillation
[2022-02-15] MEDS ORDERED: ACETAMINOPHEN 325 MG TAB PO PRN (17:16)
[2022-02-15] MEDS ORDERED: GLUCOSE 40% GEL 15 GM TUBE PO PRN (19:55)
[2022-02-15] MEDS ORDERED: DEXTROSE 50% 50 ML SYRINGE IV PRN (19:55)
[2022-02-15] MEDS ORDERED: GLUCAGON FOR INJ 1 MG VIAL SQ PRN (19:55)
[2022-02-15] MEDS ORDERED: CARBOHYDRATES FOR HYPOGLYCEMIA PO PRN (19:55)
[2022-02-15] MEDS ORDERED: GLUCOSE 10 TABS/TUBE PO PRN (19:55)
[2022-02-15] MEDS: INSULIN ASPART PER UNIT SC SCH (21:35)
[2022-02-15] MEDS: CHOLECALCIFEROL 5,000 UNITS 125 MCG TAB PO SCH (21:35)
[2022-02-15] MEDS: ROSUVASTATIN CALCIUM 20 MG TAB PO SCH (21:35)
[2022-02-15] MEDS: INSULIN GLARGINE SOLOSTAR 100 UNITS/ML 3 ML PEN SC SCH (21:36)
[2022-02-15] MEDS: METOPROLOL TARTRATE 100 MG TAB PO SCH (21:36)
[2022-02-16 07:39] LABS: INR 1.7 (0.9-1.1); Prothrombin Time 17.9 Seconds (9.0-12.0)
[2022-02-16 07:55] LABS: BUN Creatinine Ratio 23.6 (10-20); Calcium 8.6 mg/dl (8.5-10.1); Est GFR (African American) 57.8 ml/min; Est GFR (Non-African American) 49.9 ml/min; Potassium 4.7 mmol/L (3.5-5.1)
[2022-02-16] MEDS: INSULIN ASPART PER UNIT SC SCH ×4 (07:55→20:46)
[2022-02-16] MEDS: POTASSIUM CHLORIDE 10 MEQ TABCR PO SCH (08:10)
[2022-02-16] MEDS: INSULIN GLARGINE SOLOSTAR 100 UNITS/ML 3 ML PEN SC SCH ×2 (08:10→20:47)
[2022-02-16] MEDS: LOSARTAN POTASSIUM 50 MG TAB PO SCH (08:11)
[2022-02-16] MEDS: FUROSEMIDE 40 MG TAB PO SCH (08:11)
[2022-02-16] MEDS: CYANOCOBALAMIN (B-12) 500 MCG TABLET PO SCH (08:11)
[2022-02-16] MEDS: METOPROLOL TARTRATE 100 MG TAB PO SCH ×2 (08:11→20:07)
[2022-02-16 08:59] LABS: Basophils # (auto) 0.05 K/uL (0-0.2); Basophils % (auto) 0.5 %; Eosinophils # (auto) 0.08 K/uL (0-0.5); Eosinophils % (auto) 0.8 %; Hematocrit (blood only) 26.1 % (37-47); Hemoglobin 8.3 g/dL (12.0-16.0); Immature Granulocytes # (auto) 0.03 K/uL (0.00-0.02); Immature Granulocytes % (auto) 0.3 %; Lymphocytes # (auto) 2.67 K/uL (1.2-3.4); Lymphocytes % (auto) 26.9 %; Mean Corpuscular Hemoglobin 27.4 pg (25-34); Mean Corpuscular Hgb Conc 31.8 g/dL (32-36); Mean Corpuscular Volume 86.1 fL (80-100); Monocytes # (auto) 0.93 K/uL (0.11-0.59); Monocytes % (auto) 9.4 %; Neutrophils # (auto) 6.15 K/uL (1.4-6.5); Neutrophils % (auto) 62.1 %; Platelet Count 395 K/uL (130-400); RDW Coefficient of Variation 14.9 % (11.5-14.5); RDW Standard Deviation 46.7 fL (36.4-46.3); Red Blood Count 3.03 M/uL (4.2-5.4); White Blood Count 9.91 K/uL (4.8-10.8)
--- NOTE | 2022-02-16 10:11 | Electrocardiogram Report ---
Test Reason : Blood Pressure : / mmHG Vent. Rate : 076 BPM Atrial Rate : 075 BPM P-R Int : 000 ms QRS Dur : 076 ms QT Int : 378 ms P-R-T Axes : 000 -02 165 degrees QTc Int : 425 ms Poor data quality, interpretation may be adversely affected 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 with occasional ventricular-paced complexes Left ventricular hypertrophy with repolarization abnormality Abnormal ECG When compared with ECG of 15-FEB-2022 10:59, Vent. rate has decreased BY 4 BPM Confirmed by Yanick Bonilla ([id number]) on 02/16/2022 10:10:57 AM Referred By: Dayton Momin Confirmed By:Yanick Bonilla
--- NOTE | 2022-02-16 10:40 | Cardiology Consultation ---
Date of Consultation February 16, 2022 Assessment & Plan (1) Symptomatic anemia: (2) Acute blood loss anemia: (3) Dyspnea on exertion: (4) Paroxysmal A-fib: (5) Weakness: (6) Infarction of spleen: (7) HTN (hypertension): (8) Aortocoronary bypass status: (9) Cardiac pacemaker: (10) Coronary atherosclerosis: (11) Tachy-aylin syndrome: Symptomatic anemia. CTA of the chest with mild thickening of the distal esophagus raising concern for esophagitis. Add Protonix 40 mg twice a day. Re commend further evaluation - GI consultation, consideration for EGD, consideration for transfusion of pRBC's. Resume Aspirin and Coumadin anticoagulation as soon as able. 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, paroxysmal to persistent. Failed Sotalol and amiodarone. Asymptomatic. Noting the small splenic infarct on the CT A/P, recommend resumption of anticoagulation as soon as able. Atherosclerotic coronary disease. Status post CABG x 2 as above. HS troponin negative x 2. EKG without acute changes. Stable symptoms. Continue appropriate medical management. Diastolic congestive heart failure. Compensated. Continue the prior to arrival diuretic regimen Sick Sinus Syndrome. Status post dual chamber pacemaker. Pacemaker interrogation due next on March 17, 2022. Hypertension. Blood pressure acceptably controlled. Continue the prior to arrival antihypertensive regimen. Dyslipidemia, goal LDL below 70. LDL cholesterol 35 mg/dL on June 24, 2021. Continue rosuvastatin Peripheral artery disease. Moderate left lower extremity arterial insufficiency. Followed by [facility]. Supervising Physician Co-Signing Physician Notes Cardiology Attending: I personally performed a history and physical examination on the patient. Case discussed with Serene Momin PA-C. Agree with findings and plan as outline with additions as noted. S: Pt notes CONDE with minimal exertion walking to restroom. Breathing OK at rest. Exam CV: irregular rhythm, no murmur, no edema EKG: rate controlled AF Impression CONDE , perhaps due to symptomatic anemia Requires anticoagulation , AF, splenic infarct (asymptomatic) on CT. -Treatment for anemia. -GI consult. After work up completed, resume ASA and coumadin. History of Present Illness Reason for Consultation: Fatigue. Shortness of breath. 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. Edema. Requesting Physician: Aamir Attending Physician: Jonathan History of Present Illness Mrs. Tootie Almanza is a very pleasant 81-year-old female who was referred to the [facility] Emergency Room on Tuesday, February 15, 2022 due to complaints of acute on chronic dyspnea. Patient notes worsening dyspnea with activity, bendopnea, generalized weakness, fatigue, and increased blood glucose readings over the last 3 to 4 weeks or so. Patient notes intermittent e pisodes of epistaxis as well as mouth/dental bleeding following extraction in early January,. On questioning today, she also notes intermittent dark stools that she attributes to certain foods like red beets. Hemoglobin was notably 15.1 g/dL on January 31, 2022. Hemoglobin on presentation to the hospital was 9.5 g/dL. Hemoglobin this morning was 8.3 g/dL. Additional complaints and concerns include chronic low back pain, hip pain, and knee pain. She has chronic stable twinges or little stabs of resting left-sided chest pain. No exertional chest pain. No palpitations. No resting dyspnea, orthopnea, PND, or worsening lower extremity peripheral edema. No cough or chest congestion. Stable mild intermittent dizziness with positional changes. No syncope. No fevers or chills. Past Medical and Surgical History: Atherosclerotic coronary disease. Status post coronary bypass grafting x 2 for accelerated angina pectoris in July 2002 (MARIE graft to the left anterior descending & saphenous vein graft to the left circumflex). Progressive dyspnea on exertion and abnormal stress testing (showed ST depressions in II, III, aVF, V3 to V6 during the exercise portion of the study, converted to Lexiscan, with a small area of ischemia in mid anterior and apical anterior with normal EF and no wall motion abnormalities and no TID. January 2012 cardiac catheterization at [facility] which revealed a patent MARIE to LAD, patent SVG to left circumflex, and no other significant coronary stenosis identified which would be amenable to revascularization. Diastolic congestive heart failure. Paroxysmal atrial fibrillation. Failed Sotalol. Intolerant to amiodarone (initiated in 11/2016, discontinued March 2017). Continue anticoagulation Sick Sinus Syndrome. Status post dual chamber pacemaker insertion in September 2007. Generator exchange on 11/25/2016 complicated by significant left subclavian pacemaker pocket hematoma as well as medication issues. Hypertension. Dyslipidemia, goal LDL below 70. LDL cholesterol 35 mg/dL on June 24, 2021. Noninsulin dependent diabetes mellitus with retinopathy, neuropathy, and renal insufficiency Peripheral artery disease. Moderate left lower extremity arterial insufficiency. Followed by [facility]. Multinodular goiter DISH (diffuse idiopathic skeletal hyperostosis) Age-related osteoporosis Psoriasis Vitamin D deficiency Irritable bowel syndrome Epistaxis. Colonoscopy with polypectomy Three prior D&C's. Appendectomy Total abdominal hysterectomy Family History: Positive for CAD in her mother. Multiple family members with diabetes mellitus. Social History: Nonsmoker. No smokeless tobacco use. No alcohol. No illegal drug use. . Homemaker. Complete review of systems is otherwise as stated above, negative, noncontributory. Allergies Allergy/AdvReac Type Severity Reaction Status Date / Time lisinopril Allergy Intermediate Cough Unverified 02/15/22 13:04 cefazolin Allergy Unknown CEPHALEXIN-PT Verified 02/15/22 13:04 DOESN'T REMEMBER WHAT HAPPENED tetanus toxoid, adsorbed Allergy Unknown LOCAL Verified 02/15/22 13:04 REACTION/FEVER oxycodone AdvReac Unknown NAUSEA/STOMACH Verified 02/15/22 13:04 PAINS Home Medications Medication Instructions Recorded Confirmed Type cholecalciferol (vitamin D3) 125 5,000 units PO HS 06/25/19 02/15/22 History mcg (5,000 unit) capsule losartan 100 mg tablet 100 mg PO QAM 06/25/19 02/15/22 History nitroglycerin 0.4 mg sublingual 0.4 mg SL DIRECTED PRN 06/25/19 02/15/22 History tablet rosuvastatin 20 mg tablet 20 mg PO HS 06/25/19 02/15/22 History furosemide 20 mg tablet (Lasix) See Rx Instructions .ROUTE 10/24/19 02/15/22 History .COMPLEX tab empagliflozin 25 mg tablet 25 mg PO QAM 08/31/20 02/15/22 History (Jardiance) potassium chloride 10 mEq See Rx Instructions .ROUTE .COMPLEX 08/31/20 02/15/22 History tablet,extended release(part/cryst) warfarin 2 mg tablet 2 mg PO DIRECTED #0 tab 09/03/20 02/15/22 Rx aspirin 81 mg tablet 81 mg PO 3XWK 02/15/22 02/15/22 History insulin glargine 100 unit/mL (3 24 unit SUBCUT QAM 02/15/22 02/15/22 History mL) subcutaneous pen (Lantus Solostar U-100 Insulin) mecobalamin (vitamin B12) 1,000 1,000 mcg PO DAILY 02/15/22 02/15/22 History mcg chewable tablet (B12 Active) metformin 1,000 mg 24 hr 1,000 mg PO BIDM 02/15/22 02/15/22 History tablet,extended release metoprolol tartrate 100 mg tablet 100 mg PO BID 02/15/22 02/15/22 History Patient History Medical History 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 Cardiac pacemaker Chronic anticoagulation Coronary atherosclerosis COVID-19 Diabetes mellitus type 2 with complications DISH (diffuse idiopathic skeletal hyperostosis) Dyslipidemia History of pacemaker HTN (hypertension) IBS (irritable bowel syndrome) Low back pain Pulmonary HTN Type 2 diabetes mellitus Surgical History H/O: hysterectomy Hx of appendectomy Hx of CABG Family History Aunt Diabetes Uncle Diabetes Daughter Diabetes Social History Smoking Status: Never smoker Hx Alcohol Use: No Hx Substance Use: No Preferred Language: Belarusian Communication Ability: Effective Visual Impairment: No Limitations Hearing Ability: Normal Fence Post Cutter Required: No Beliefs That Will Affect Care: None marital status: Current Living Situation: Spouse current occupational status: retired Other Information That Helps Us Care for You: No Feels Safe at Home: Yes Safety Concerns: Feels Safe At This Time Assistive Devices: None Physical Exam Physical Exam: General: A&Ox3. NAD. + Pallor. HENT: Normocephalic and atraumatic. Eyes: PER. Sclera pale. Neck: No JVD. No HJR. No carotid bruits. Lungs: Decreased at the bases. Clear to auscultation. No wheeze. Cardiovascular: Irregularly irregular. Grade II/ systolic murmur heard best at the LLSB. No diastolic murmur. No rub. No gallop. PMI is nondisplaced. Abdomen: Soft, nontender. No palpable hepatosplenomegaly. Extremities: Minimal edema. No cyanosis. No clubbing. Left lower extremity vein harvesting noted. Distal pulses not appreciated. Neurologic: Patient is intact. Results & Data ([facility]) Vital Signs (Past 12 Hours) Vital Signs Temp Pulse Pulse Resp BP Pulse Ox 02/16/22 08:00 36.7 C 81 18 110/64 99 02/16/22 07:18 71 02/16/22 02:53 36.4 C L 76 17 106/62 98 02/16/22 00:52 77 02/15/22 23:00 36.8 C 77 18 118/87 92 Laboratory Results Laboratory Results - last 24 hr 02/15/22 02/15/22 02/15/22 11:14 11:14 11:14 WBC 9.69 RBC 3.34 L Hgb 9.5 L Hct 29.5 L MCV 88.3 MCH 28.4 MCHC 32.2 RDW Std Deviation 47.6 H RDW Coeff of Alex 14.8 H Plt Count 452 H MPV 9.3 Immature Gran % (Auto) 0.3 Neut % (Auto) 70.1 Lymph % (Auto) 21.3 Carver % (Auto) 7.2 Eos % (Auto) 0.7 Baso % (Auto) 0.4 Neut # (Auto) 6.79 H Lymph # (Auto) 2.06 Carver # (Auto) 0.70 H Eos # (Auto) 0.07 Baso # (Auto) 0.04 Immature Gran # (Auto) 0.03 H PT 21.4 H INR 2.1 H APTT 32.5 H PTT Ratio 1.2 Sodium Potassium Chloride Carbon Dioxide Anion Gap BUN Creatinine Est Cr Clr Drug Dosing Est GFR ( Amer) Est GFR (Non-Af Amer) BUN/Creatinine Ratio Glucose POC Glucose Calcium Total Bilirubin AST ALT Alkaline Phosphatase Troponin I High Sens 6.1 B-Natriuretic Peptide Total Protein Albumin Globulin Albumin/Globulin Ratio Lipase SARS-CoV-2, RNA, NAAT Blood Type Blood Type Recheck Antibody Screen Crossmatch 02/15/22 02/15/22 02/15/22 11:14 11:14 12:05 WBC RBC Hgb Hct MCV MCH MCHC RDW Std Deviation RDW Coeff of Alex Plt Count MPV Immature Gran % (Auto) Neut % (Auto) Lymph % (Auto) Carver % (Auto) Eos % (Auto) Baso % (Auto) Neut # (Auto) Lymph # (Auto) Carver # (Auto) Eos # (Auto) Baso # (Auto) Immature Gran # (Auto) PT INR APTT PTT Ratio Sodium 135 L Potassium TNP Chloride 102 Carbon Dioxide 24 Anion Gap 9 BUN 21 Creatinine 0.99 Est Cr Clr Drug Dosing Not Reportable Est GFR ( Amer) 62.8 Est GFR (Non-Af Amer) 54.2 BUN/Creatinine Ratio 21.2 H Glucose 300 H POC Glucose Calcium 9.0 Total Bilirubin 0.4 AST TNP ALT 36 Alkaline Phosphatase 49 Troponin I High Sens B-Natriuretic Peptide 242 H Total Protein 7.4 Albumin 3.8 Globulin 3.6 Albumin/Globulin Ratio 1.1 Lipase 54 SARS-CoV-2, RNA, NAAT NEGATIVE Blood Type Blood Type Recheck Antibody Screen Crossmatch 02/15/22 02/15/22 02/15/22 12:49 14:07 14:07 WBC RBC Hgb Hct MCV MCH MCHC RDW Std Deviation RDW Coeff of Alex Plt Count MPV Immature Gran % (Auto) Neut % (Auto) Lymph % (Auto) Carver % (Auto) Eos % (Auto) Baso % (Auto) Neut # (Auto) Lymph # (Auto) Carver # (Auto) Eos # (Auto) Baso # (Auto) Immature Gran # (Auto) PT INR APTT PTT Ratio Sodium Potassium Cancelled Chloride Carbon Dioxide Anion Gap BUN Creatinine Est Cr Clr Drug Dosing Est GFR ( Amer) Est GFR (Non-Af Amer) BUN/Creatinine Ratio Glucose POC Glucose Calcium Total Bilirubin AST Cancelled ALT Alkaline Phosphatase Troponin I High Sens 5.7 B-Natriuretic Peptide Total Protein Albumin Globulin Albumin/Globulin Ratio Lipase SARS-CoV-2, RNA, NAAT Blood Type A Positive Blood Type Recheck Antibody Screen NEGATIVE Crossmatch See Detail 02/15/22 02/15/22 02/15/22 14:08 15:37 17:09 WBC RBC Hgb Hct MCV MCH MCHC RDW Std Deviation RDW Coeff of Alex Plt Count MPV Immature Gran % (Auto) Neut % (Auto) Lymph % (Auto) Carver % (Auto) Eos % (Auto) Baso % (Auto) Neut # (Auto) Lymph # (Auto) Carver # (Auto) Eos # (Auto) Baso # (Auto) Immature Gran # (Auto) PT INR APTT PTT Ratio Sodium Potassium 4.2 Chloride Carbon Dioxide Anion Gap BUN Creatinine Est Cr Clr Drug Dosing Est GFR ( Amer) Est GFR (Non-Af Amer) BUN/Creatinine Ratio Glucose POC Glucose 133 H Calcium Total Bilirubin AST 20 ALT Alkaline Phosphatase Troponin I High Sens B-Natriuretic Peptide Total Protein Albumin Globulin Albumin/Globulin Ratio Lipase SARS-CoV-2, RNA, NAAT Blood Type Blood Type Recheck A Positive Antibody Screen Crossmatch 02/15/22 02/16/22 02/16/22 19:40 04:38 06:39 WBC 9.91 RBC 3.03 L Hgb 8.3 L Hct 26.1 L MCV 86.1 MCH 27.4 MCHC 31.8 L RDW Std Deviation 46.7 H RDW Coeff of Alex 14.9 H Plt Count 395 MPV 9.0 Immature Gran % (Auto) 0.3 Neut % (Auto) 62.1 Lymph % (Auto) 26.9 Carver % (Auto) 9.4 Eos % (Auto) 0.8 Baso % (Auto) 0.5 Neut # (Auto) 6.15 Lymph # (Auto) 2.67 Carver # (Auto) 0.93 H Eos # (Auto) 0.08 Baso # (Auto) 0.05 Immature Gran # (Auto) 0.03 H PT INR APTT PTT Ratio Sodium Potassium Chloride Carbon Dioxide Anion Gap BUN Creatinine Est Cr Clr Drug Dosing Est GFR ( Amer) Est GFR (Non-Af Amer) BUN/Creatinine Ratio Glucose POC Glucose 163 H 131 H Calcium Total Bilirubin AST ALT Alkaline Phosphatase Troponin I High Sens B-Natriuretic Peptide Total Protein Albumin Globulin Albumin/Globulin Ratio Lipase SARS-CoV-2, RNA, NAAT Blood Type Blood Type Recheck Antibody Screen Crossmatch 02/16/22 02/16/22 02/16/22 06:39 06:39 07:25 WBC RBC Hgb Hct MCV MCH MCHC RDW Std Deviation RDW Coeff of Alex Plt Count MPV Immature Gran % (Auto) Neut % (Auto) Lymph % (Auto) Carver % (Auto) Eos % (Auto) Baso % (Auto) Neut # (Auto) Lymph # (Auto) Carver # (Auto) Eos # (Auto) Baso # (Auto) Immature Gran # (Auto) PT 17.9 H INR 1.7 H APTT PTT Ratio Sodium 136 Potassium 4.7 Chloride 104 Carbon Dioxide 26 Anion Gap 6 BUN 25 H Creatinine 1.06 Est Cr Clr Drug Dosing 40.0 Est GFR ( Amer) 57.8 Est GFR (Non-Af Amer) 49.9 BUN/Creatinine Ratio 23.6 H Glucose 179 H POC Glucose 170 H Calcium 8.6 Total Bilirubin AST ALT Alkaline Phosphatase Troponin I High Sens B-Natriuretic Peptide Total Protein Albumin Globulin Albumin/Globulin Ratio Lipase SARS-CoV-2, RNA, NAAT Blood Type Blood Type Recheck Antibody Screen Crossmatch Diagnostic Findings June 23, 2020 Lexiscan Interpretation Summary (as per Dr. Bliss): Myocardial perfusion imaging is normal. Overall left ventricular systolic function was normal without regional wall motion abnormalities. The left ventricular ejection fraction was >70%. Compared to previous study of January 2019 no significant change. Device interrogation on 12/09/2021 revealed appropriate function. Remaining longevity: 2.5 years. Paroxysmal to persistent atrial fibrillation observed, relatively stable over the past year. Time in AT/AF 73.5%. AP-VS 20.9%. -HEALTH PHYSICIST 24.6%. -VS 54.4%. Continuous telemetry monitoring reveals atrial fibrillation with intermittent ventricular pacing, heart rates ranging from the 60's to 100 bpm.
--- NOTE | 2022-02-16 12:01 | Gastrointestinal Consultation ---
Date of Consultation February 16, 2022 Assessment & Plan (1) Symptomatic anemia: Pt is a 81 yo female admitted w symptomatic anemia, hx of Afib on Warfarin, INR in range on admission. In the last few months had hx of epistaxis and bleeding after dental extractions. Baseline Hgb 15, on admission it's 8. She denies ana s/s of hematemesis, melena, abd exam benign. CT abd/pelvis w possible esophagitis and splenic infarct. Last EGD in 2013 showed hiatal hernia, colonoscopies in 2009, 2018, hx of adenomatous colon polyps - NPO after midnight - Plan for EGD eval by Dr. Salas tomorrow 02/17 - Protonix 40mg BID - Monitor blood ct and transfuse prn - Warfarin management per Cardiology team Supervising Physician Co-Signing Physician Notes 81 yo fm with a history of cadz, cabg s/p pacer, afib on coumadin, htn, admitted with sob. Workup negative for pe, chf thus far, noted to be anemic without over gi bleeding. Prior gi workup incluidng an egd in 2013 was normal empirically dialted, colon in 2019 with polyps. ? fall in 08/12 and also covid in 09/12. PE - well appearing fm in nad, heent - perrla, cv - left sided pacer, midline scar in her chest from prior cabg, abd soft nt nd n nc anemia without significant bun rise Reluctant but agreeable to an egd tomorrow, npo past midnite, hold coumadin and check an inr in am and ideally hgb/hct as well. INR should ideally be less than 2 for egd tomorrow. History of Present Illness Reason for Consultation: Anemia, esophagitis on CT Requesting Physician: Dayton Momin PA-C Attending Physician: Dr. Bessy Salas History of Present Illness Pt is a 81 yo female who was admitted with symptomatic anemia. Hgb on presentation was 8, baseline 15. She has hx of Afib on Warfarin, HLD, pulmonary HTN, CAD s/p CABG, pacemaker placement. INR on admission was 2.1, currently 1.7 after Warfarin had been held. She reported hx of epistaxis in October, and few weeks ago had large amt of bleeding after dental extractions. CT abd/pelvis w contrast showed signs of esophagitis w ? splenic infarct. EGD in 2013 w finding of hiatal hernia. Colonoscopy in 2018 - adenomatous colon polyps. She denies CP currently but still have CONDE, no abd pain, n/v. Denies black stools or rectal bleeding. Allergies Allergy/AdvReac Type Severity Reaction Status Date / Time lisinopril Allergy Intermediate Cough Unverified 02/15/22 13:04 cefazolin Allergy Unknown CEPHALEXIN-PT Verified 02/15/22 13:04 DOESN'T REMEMBER WHAT HAPPENED tetanus toxoid, adsorbed Allergy Unknown LOCAL Verified 02/15/22 13:04 REACTION/FEVER oxycodone AdvReac Unknown NAUSEA/STOMACH Verified 02/15/22 13:04 PAINS Home Medications Medication Instructions Recorded Confirmed Type cholecalciferol (vitamin D3) 125 5,000 units PO HS 06/25/19 02/15/22 History mcg (5,000 unit) capsule losartan 100 mg tablet 100 mg PO QAM 06/25/19 02/15/22 History nitroglycerin 0.4 mg sublingual 0.4 mg SL DIRECTED PRN 06/25/19 02/15/22 History tablet rosuvastatin 20 mg tablet 20 mg PO HS 06/25/19 02/15/22 History furosemide 20 mg tablet (Lasix) See Rx Instructions .ROUTE 10/24/19 02/15/22 History .COMPLEX tab empagliflozin 25 mg tablet 25 mg PO QAM 08/31/20 02/15/22 History (Jardiance) potassium chloride 10 mEq See Rx Instructions .ROUTE .COMPLEX 08/31/20 02/15/22 History tablet,extended release(part/cryst) warfarin 2 mg tablet 2 mg PO DIRECTED #0 tab 09/03/20 02/15/22 Rx aspirin 81 mg tablet 81 mg PO 3XWK 02/15/22 02/15/22 History insulin glargine 100 unit/mL (3 24 unit SUBCUT QAM 02/15/22 02/15/22 History mL) subcutaneous pen (Lantus Solostar U-100 Insulin) mecobalamin (vitamin B12) 1,000 1,000 mcg PO DAILY 02/15/22 02/15/22 History mcg chewable tablet (B12 Active) metformin 1,000 mg 24 hr 1,000 mg PO BIDM 02/15/22 02/15/22 History tablet,extended release metoprolol tartrate 100 mg tablet 100 mg PO BID 02/15/22 02/15/22 History Patient History Medical History 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 Cardiac pacemaker Chronic anticoagulation Coronary atherosclerosis COVID-19 Diabetes mellitus type 2 with complications DISH (diffuse idiopathic skeletal hyperostosis) Dyslipidemia History of pacemaker HTN (hypertension) IBS (irritable bowel syndrome) Low back pain Pulmonary HTN Type 2 diabetes mellitus Surgical History H/O: hysterectomy Hx of appendectomy Hx of CABG Family History Aunt Diabetes Uncle Diabetes Daughter Diabetes Social History Smoking Status: Never smoker Hx Alcohol Use: No Hx Substance Use: No Preferred Language: Algerian Communication Ability: Effective Visual Impairment: No Limitations Hearing Ability: Normal Communications Tower Technician Required: No Beliefs That Will Affect Care: None marital status: Current Living Situation: Spouse current occupational status: retired Other Information That Helps Us Care for You: No Feels Safe at Home: Yes Safety Concerns: Feels Safe At This Time Assistive Devices: None Review of Systems Review of Systems: All systems reviewed & are unremarkable except as noted in HPI & below Physical Exam Constitutional: WD/WN, vitals as above well groomed, cooperative and comfortable Eyes: PERRL, conjunctivae normal, anicteric sclerae ENMT: external ear and nose normal, oropharynx normal Respiratory: normal respiratory effort, lungs clear to auscultation Cardiovascular: RRR, no murmur, no edema Gastrointestinal (Abdomen): normal bowel sounds, soft, nontender, no hepatosplenomegaly Skin: no rashes, warm and dry no jaundice Psychiatric: A+Ox3, euthymic affect Lymphatic: no lymphedema Results & Data ([facility]) Vital Signs (Past 12 Hours) Vital Signs Temp Pulse Pulse Resp BP Pulse Ox 02/16/22 08:00 36.7 C 81 18 110/64 99 02/16/22 07:18 71 02/16/22 02:53 36.4 C L 76 17 106/62 98 02/16/22 00:52 77
[2022-02-16] MEDS: PANTOprazole 40 MG TAB PO SCH ×2 (12:29→20:08)
[2022-02-16] MEDS ORDERED: IRON SUCROSE 400 MG in SODIUM CHLORIDE 0.9% 250 ML IV ONE (12:30)
[2022-02-16 13:27] LABS: Hematocrit (blood only) 27.9 % (37-47); Hemoglobin 9.1 g/dL (12.0-16.0)
--- NOTE | 2022-02-16 13:52 | Hospitalist Progress Note ---
Date of Service February 16, 2022 Assessment & Plan (1) Acute blood loss anemia: Plan: Symptomatic anemia with CONDE - Pt with multiple episodes of bleeding s/p dental extraction earlier this month, last one being 5 days back. - Baseline Hb 13-14 but no recent labs, on presentation 9.5->8.3->9.1. No further bleeding here - Trend H&H, if drifts down or persistently symptomatic with CONDE, will transfuse 1 U PRBC but will hold for now. She is okay with blood transfusion if needed - Will transfuse IV iron D1 - continue to hold coumadin - Seen by GI- started on protonix bid given esophagitis in CT chest; plan for EGD tomorrow-npo after midnight (2) Dyspnea on exertion: Plan: Probably related to #1. CTA chest with no PE or PNA but possible esophagitis and small splenic infarct. However, pt with peripheral edema, hx of atrial fibrillation and pulmonary HTN - Home lasix resumed and edema significantly improved - Cardio following (3) 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: Plan: Paroxysmal to persistent atrial fibrillation- failed sotalol and amiodarone. Rate controlled on lopressor, On coumadin for anticoagulation- currently on hold pending further work up (4) HTN (hypertension): Plan: BP stable, on losartan and lopressor (5) Diabetes mellitus type 2 with complications: Plan: - hold metformin, on lantus and SSI- will adjust as indicated Plan: CAD s/p CABGx2 Chronic diastolic CHF- on po lasix SSS s/p dual chanber pacemaker. Pacemaker interrogation on 03/17/22 Lung nodule- incidental finding in CT chest, 4 mm RML. Recommended OP f/u CT chest with PCP in 1 year if high risk, otherwise no follow up required in low risk cases. DVT prophylaxis- sc heparin. Will resume coumadin when okay per GI Dispo- EGD tomorrow. Trending H&H. Might require PRBC transfusion Admission and Anticipated Discharge Date Admission Date: February 15, 2022 Subjective Seen and examined at bedside. Still with dyspnea on exertion but no dizziness, palpitations, chest tightness. Denies any hematuria, hematemesis or hemat ochezia. States she has 3 episodes of heavy bleeding with clots from the dental extraction site but the last bleeding was on Monday 5 days back, none since then. Physical Exam Physical Exam: General: Lying comfortably in bed, not in distress, on room air HEENT: EOMI, LUIS, MMM, pallor + Chest: Clear breath sounds bilaterally, no wheezes or crackles CVS: Irregular, normal heart sounds, no murmur Abdomen: Soft, non tender, not distended, normal bowel sounds Neuro: Awake, alert, oriented, conversing well, non focal Extremities: No cyanosis, clubbing, trace edema Results & Data Results & Data ([facility]) Vital Signs (Past 12 Hours) Vital Signs Temp Pulse Pulse Resp BP Pulse Ox 02/16/22 11:30 36.5 C 96 H 20 120/71 96 02/16/22 08:00 36.7 C 81 18 110/64 99 02/16/22 07:18 71 02/16/22 02:53 36.4 C L 76 17 106/62 98 Laboratory Results Short CBC 02/15/22 02/16/22 02/16/22 Range/Units 11:14 06:39 06:39 WBC 9.91 (4.8-10.8) K/uL Hgb 8.3 L (12.0-16.0) g/dL Hct 26.1 L (37-47) % Plt Count 395 (130-400) K/uL INR 2.1 H 1.7 H (0.9-1.1) 02/16/22 Range/Units 13:12 WBC (4.8-10.8) K/uL Hgb 9.1 L (12.0-16.0) g/dL Hct 27.9 L (37-47) % Plt Count (130-400) K/uL INR (0.9-1.1) BMP 02/15/22 02/15/22 02/16/22 12:49 14:08 06:39 Sodium 136 Potassium Cancelled 4.2 4.7 Chloride 104 Carbon Dioxide 26 BUN 25 H Creatinine 1.06 Glucose 179 H Calcium 8.6 Liver Function 02/15/22 02/15/22 Range/Units 12:49 14:08 AST Cancelled 20 Medications Administered Current Inpatient Medications Acetaminophen (Acetaminophen 325 Mg Tab) 650 mg PO Q4H PRN PRN Reason: Pain or Fever Stop: 03/17/22 17:15 Cyanocobalamin (Cyanocobalamin (B-12) 500 Mcg Tablet) 1,000 mcg PO DAILY LISS Stop: 03/18/22 08:59 Last Admin: 02/16/22 08:11 Dose: 1,000 mcg Documented by: Dextrose (Dextrose 50% 50 Ml Syringe) 25 - 50 ml IV UD PRN; Protocol PRN Reason: Hypoglycemia Protocol Stop: 03/17/22 19:54 Furosemide (Furosemide 40 Mg Tab) 40 mg PO QAM LISS Stop: 03/18/22 08:59 Last Admin: 02/16/22 08:11 Dose: 40 mg Documented by: Glucagon (Glucagon For Inj 1 Mg Vial) 1 mg SQ UD PRN; Protocol PRN Reason: Hypoglycemia Protocol Stop: 03/17/22 19:54 Glucose (Glucose 10 Tabs/Tube) 4 - 8 tabs PO UD PRN; Protocol PRN Reason: Hypoglycemia Protocol Stop: 03/17/22 19:54 Glucose (Glucose 40% Gel 15 Gm Tube) 15 - 30 gm PO UD PRN; Protocol PRN Reason: Hypoglycemia Protocol Stop: 03/17/22 19:54 Iron Sucrose 400 mg/ Sodium (Chloride) 270 mls @ 108 mls/hr IV ONE ONE Stop: 02/16/22 14:59 Last Admin: 02/16/22 13:27 Dose: 108 mls/hr Documented by: Insulin Aspart (Insulin Aspart Per Unit) 0 units SC ACHS [facility] Stop: 03/17/22 20:59 Last Admin: 02/16/22 12:06 Dose: 4 units Documented by: Insulin Glargine (Insulin Glargine Solostar 100 Units/Ml 3 Ml Pen) 7 units SC BID LISS Stop: 03/17/22 20:59 Last Admin: 02/16/22 08:10 Dose: 7 units Documented by: Losartan Potassium (Losartan Potassium 50 Mg Tab) 100 mg PO QAM LISS Stop: 03/18/22 08:59 Last Admin: 02/16/22 08:11 Dose: 100 mg Documented by: Metoprolol Tartrate (Metoprolol Tartrate 100 Mg Tab) 100 mg PO BID LISS Stop: 03/17/22 20:59 Last Admin: 02/16/22 08:11 Dose: 100 mg Documented by: Miscellaneous (Carbohydrates For Hypoglycemia ) 15 - 30 gm PO UD PRN PRN Reason: Hypoglycemia Protocol Stop: 03/17/22 19:54 Pantoprazole Sodium (Pantoprazole 40 Mg Tab) 40 mg PO BID LISS Stop: 03/18/22 11:29 Last Admin: 02/16/22 12:29 Dose: 40 mg Documented by: Potassium Chloride (Potassium Chloride 10 Meq Tabcr) 10 meq PO DAILY LISS Stop: 03/18/22 08:59 Last Admin: 02/16/22 08:10 Dose: 10 meq Documented by: Rosuvastatin Calcium (Rosuvastatin Calcium 20 Mg Tab) 20 mg PO [facility] Stop: 03/17/22 20:59 Last Admin: 02/15/22 21:35 Dose: 20 mg Documented by: Vitamin D (Cholecalciferol 5,000 Units 125 Mcg Tab) 5,000 units PO HS [facility] Stop: 03/17/22 20:59 Last Admin: 02/15/22 21:35 Dose: 5,000 units Documented by: (1) 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 type: longstanding persistent Qualified Code(s): I48.11 - Longstanding persistent atrial fibrillation
[2022-02-16] MEDS: ROSUVASTATIN CALCIUM 20 MG TAB PO SCH (20:07)
[2022-02-16] MEDS: HEPARIN SOD 5,000 UNIT/0.5 ML VIAL SQ SCH (20:08)
[2022-02-16] MEDS: CHOLECALCIFEROL 5,000 UNITS 125 MCG TAB PO SCH (20:08)
[2022-02-16 21:20] LABS: Hematocrit (blood only) 28.3 % (37-47); Hemoglobin 9.4 g/dL (12.0-16.0)
[2022-02-17 07:54] LABS: Hematocrit (blood only) 27.8 % (37-47); Hemoglobin 9.1 g/dL (12.0-16.0); Mean Corpuscular Hemoglobin 27.8 pg (25-34); Mean Corpuscular Hgb Conc 32.7 g/dL (32-36); Mean Platelet Volume 9.1 fL (7.4-10.4); Platelet Count 415 K/uL (130-400); RDW Coefficient of Variation 14.9 % (11.5-14.5); Red Blood Count 3.27 M/uL (4.2-5.4); White Blood Count 10.07 K/uL (4.8-10.8)
[2022-02-17 08:09] LABS: BUN Creatinine Ratio 28.4 (10-20); Calcium 8.8 mg/dl (8.5-10.1); Potassium 3.9 mmol/L (3.5-5.1)
[2022-02-17] MEDS: INSULIN ASPART PER UNIT SC SCH ×4 (08:13→20:31)
[2022-02-17 08:14] LABS: INR 1.4 (0.9-1.1); Prothrombin Time 14.5 Seconds (9.0-12.0)
[2022-02-17] MEDS: INSULIN GLARGINE SOLOSTAR 100 UNITS/ML 3 ML PEN SC SCH ×2 (08:16→20:31)
[2022-02-17] MEDS: CYANOCOBALAMIN (B-12) 500 MCG TABLET PO SCH (08:18)
[2022-02-17] MEDS: FUROSEMIDE 40 MG TAB PO SCH (08:18)
[2022-02-17] MEDS: POTASSIUM CHLORIDE 10 MEQ TABCR PO SCH (08:18)
[2022-02-17] MEDS: LOSARTAN POTASSIUM 50 MG TAB PO SCH (08:18)
[2022-02-17] MEDS: PANTOprazole 40 MG TAB PO SCH ×2 (08:19→20:30)
[2022-02-17] MEDS: HEPARIN SOD 5,000 UNIT/0.5 ML VIAL SQ SCH ×2 (08:19→20:30)
[2022-02-17] MEDS: METOPROLOL TARTRATE 100 MG TAB PO SCH ×2 (08:19→20:30)
--- NOTE | 2022-02-17 08:55 | Gastroenterology Progress Note ---
Date of Service February 17, 2022 Assessment & Plan (1) Symptomatic anemia: Plan: Pt is a 81 yo female admitted w symptomatic anemia, hx of Afib on Warfarin, INR in range on admission. In the last few months had hx of epistaxis and bleeding after dental extractions. Baseline Hgb 15, on admission it's 8. She denies ana s/s of hematemesis, melena, abd exam benign. CT abd/pelvis w possible esophagitis and splenic infarct. Last EGD in 2013 showed hiatal hernia, colono scopies in 2018, hx of adenomatous colon polyps H/H 07/19, no abd pain, n/v, BM this AM dark brown color per pt. - NPO for EGD eval today - Protonix 40mg BID - Monitor blood ct and transfuse prn - Warfarin management per Cardiology team Admission and Anticipated Discharge Date Admission Date: February 15, 2022 Subjective She feels "washed out", low energy. Denies CP, SOB, abd pain, n/v. BM this AM, formed, dark brown per her report. No rectal bleeding Review of Systems Review of Systems: All systems reviewed & are unremarkable except as noted in HPI & below Physical Exam Constitutional: WD/WN, vitals as above well groomed, cooperative and comfortable Eyes: PERRL, conjunctivae normal, anicteric sclerae ENMT: external ear and nose normal, oropharynx normal Respiratory: normal respiratory effort, lungs clear to auscultation Cardiovascular: RRR, no murmur, no edema Gastrointestinal (Abdomen): normal bowel sounds, soft, nontender, no hepatosplenomegaly Skin: no rashes, warm and dry no jaundice Psychiatric: A+Ox3, euthymic affect Lymphatic: no lymphedema Results & Data ([facility]) Vital Signs (Past 12 Hours) Vital Signs Temp Pulse Pulse Resp BP Pulse Ox 02/17/22 07:30 36.8 C 76 18 109/74 96 02/17/22 03:44 36.6 C 67 16 137/81 99 02/16/22 23:43 73 02/16/22 23:04 36.8 C 71 18 117/57 L 98
--- NOTE | 2022-02-17 09:26 | Cardiology Progress Note ---
Date of Service February 17, 2022 Assessment & Plan (1) Symptomatic anemia: (2) Acute blood loss anemia: (3) Dyspnea on exertion: (4) Paroxysmal A-fib: (5) Weakness: (6) Infarction of spleen: (7) HTN (hypertension): (8) Aortocoronary bypass status: (9) Cardiac pacemaker: (10) Coronary atherosclerosis: (11) Tachy-aylin syndrome: Plan: Symptomatic anemia. CTA of the chest with mild thickening of the distal esophagus raising concern for esophagitis. Protonix 40 mg twice a day added in the AM of 02/16/2022. GI consulted, EGD planned for today. Resume Coumadin anticoagulation and aspirin as soon as able (see below) 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, paroxysmal to persistent. Failed Sotalol. Failed amiodarone. Asymptomatic. Small splenic infarct noted on imaging this admission; P, recommend resumption of anticoagulation and aspiring as soon as able. Atherosclerotic coronary disease. Status post CABG x 2 as above. HS troponin negative. EKG without acute changes. Stable symptoms. Continue appropriate medical management. Diastolic congestive heart failure. Compensated. Continue the prior to arrival diuretic regimen Sick Sinus Syndrome. Status post dual chamber pacemaker. Pacemaker interrogation due next on March 17, 2022. Hypertension. Blood pressure acceptably controlled. Continue the prior to arrival antihypertensive regimen. Dyslipidemia, goal LDL below 70. LDL cholesterol 35 mg/dL on June 24, 2021. Continue rosuvastatin Peripheral artery disease. Moderate left lower extremity arterial insufficiency. Followed by [facility]. Admission and Anticipated Discharge Date Admission Date: February 15, 2022 Supervising Physician Co-Signing Physician Notes Supervising Physician Attestation: I have personally performed a history and physical examination on the patient. I agree with the physician orthodontist assistant's findings and plan as documented with the following additions. Subjective: Patient comfortable today. No shortness of breath at rest. Telemetry reveals rate controlled atrial fibrillation. Exam: Irregular rhythm, 1/6 systolic murmur Data: Hemoglobin improved to 9.1, having been 8.3 on 02/16/2022 Assessment and Plan: Problem list as noted above -GI input noted and appreciated, await endoscopy results. Reza Mancilla, DO Subjective Patient seen and examined. Chart, medications, and telemetry reviewed. EGD today. Complaints today are the same as those leading to admission. Weakness, dyspnea with activity such as walking to the bathroom, mild headache, dizziness. No angina, palpitations, resting dyspnea, orthopnea, PND, edema, near syncope, fevers, chills, hemoptysis, melena, hematochezia, or hematuria. February 16, 2022 TTE Interpretation Summary ([facility], Dr. Mancilla): Mild concentric LVH. Normal LV wall motion. EF 55-60%. Moderately dilated LA. Mildly calcified aortic valve. Mild AI. No aortic stenosis. Mild mitral annular calcification. mild MR and TR. Doppler findings do not suggest pulmonary hypertension. LV diastolic function is abnormal based on the presence of left atrial dilatation, bt not graded due to the presence of atrial fibrillation. Telemetry: 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 with intermittent ventricular pacing, heart rates currently in the 60's. Review of Systems Review of Systems: Complete Review of Systems is as stated above, negative, or noncontributory. Physical Exam Physical Exam: General: A&Ox3. NAD. + Pallor. HENT: Normocephalic and atraumatic. Eyes: PER. Sclera pale. Neck: No JVD. No HJR. No carotid bruits. Lungs: Decreased at the bases. Clear to auscultation. No wheeze. Cardiovascular: Irregularly irregular at 70 bpm. Grade II/ systolic murmur heard best at the LLSB. No diastolic murmur. No rub. No gallop. PMI is nondisplaced. Abdomen: Soft, nontender. No palpable hepatosplenomegaly. Extremities: No edema. No cyanosis. No clubbing. Left lower extremity vein harvesting noted. Distal pulses not appreciated. Neurologic: Patient is intact. Results & Data ([facility]) Vital Signs (Past 12 Hours) Vital Signs Temp Pulse Pulse Resp BP Pulse Ox 02/17/22 08:00 79 02/17/22 07:30 36.8 C 76 18 109/74 96 02/17/22 03:44 36.6 C 67 16 137/81 99 02/16/22 23:43 73 02/16/22 23:04 36.8 C 71 18 117/57 L 98 Laboratory Results Laboratory Results - last 24 hr 02/16/22 02/16/22 02/16/22 11:31 13:12 16:22 WBC RBC Hgb 9.1 L Hct 27.9 L MCV MCH MCHC RDW Std Deviation RDW Coeff of Alex Plt Count MPV PT INR Sodium Potassium Chloride Carbon Dioxide Anion Gap BUN Creatinine Est Cr Clr Drug Dosing Est GFR ( Amer) Est GFR (Non-Af Amer) BUN/Creatinine Ratio Glucose POC Glucose 191 H 227 H Calcium 02/16/22 02/16/22 02/17/22 20:36 21:09 06:45 WBC RBC Hgb 9.4 L Hct 28.3 L MCV MCH MCHC RDW Std Deviation RDW Coeff of Alex Plt Count MPV PT 14.5 H INR 1.4 H Sodium Potassium Chloride Carbon Dioxide Anion Gap BUN Creatinine Est Cr Clr Drug Dosing Est GFR ( Amer) Est GFR (Non-Af Amer) BUN/Creatinine Ratio Glucose POC Glucose 203 H Calcium 02/17/22 02/17/22 06:45 06:45 WBC 10.07 RBC 3.27 L Hgb 9.1 L Hct 27.8 L MCV 85.0 MCH 27.8 MCHC 32.7 RDW Std Deviation 46.0 RDW Coeff of Alex 14.9 H Plt Count 415 H MPV 9.1 PT INR Sodium 136 Potassium 3.9 Chloride 103 Carbon Dioxide 27 Anion Gap 6 BUN 27 H Creatinine 0.95 Est Cr Clr Drug Dosing 44.0 Est GFR ( Amer) 66.0 Est GFR (Non-Af Amer) 57.0 BUN/Creatinine Ratio 28.4 H Glucose 123 H POC Glucose Calcium 8.8
--- NOTE | 2022-02-17 11:40 | Anesthesiology Consultation ---
Date of Service February 17, 2022 Assessment & Plan (1) Encounter for pre-operative examination: Chart Review Chart Review: Acceptable Risk for Surgery, Patient NOT seen in Pre Admission Testing and customs entry clerk initiated Consults Requested none History Surgery Operation Date: 02/17/22 17:00 Proposed Procedures p Esophagogastroduodenoscopy Dr. Josue Salas MD Height/Weight Height: 5 ft 2 in Weight: 70.1 kg Allergies Allergy/AdvReac Type Severity Reaction Status Date / Time lisinopril Allergy Intermediate Cough Unverified 02/15/22 13:04 cefazolin Allergy Unknown CEPHALEXIN-PT Verified 02/15/22 13:04 DOESN'T REMEMBER WHAT HAPPENED tetanus toxoid, adsorbed Allergy Unknown LOCAL Verified 02/15/22 13:04 REACTION/FEVER oxycodone AdvReac Unknown NAUSEA/STOMACH Verified 02/15/22 13:04 PAINS Medications Home Medications Medication Instructions Recorded Confirmed Last Taken cholecalciferol (vitamin D3) 125 5,000 units PO HS 06/25/19 02/15/22 02/14/22 mcg (5,000 unit) capsule losartan 100 mg tablet 100 mg PO QAM 06/25/19 02/15/22 02/14/22 nitroglycerin 0.4 mg sublingual 0.4 mg SL DIRECTED PRN 06/25/19 02/15/22 Unknown tablet rosuvastatin 20 mg tablet 20 mg PO HS 06/25/19 02/15/22 02/14/22 furosemide 20 mg tablet (Lasix) See Rx Instructions .ROUTE 10/24/19 02/15/22 0 02/11/22 .COMPLEX tab empagliflozin 25 mg tablet 25 mg PO QAM 08/31/20 02/15/22 02/14/22 (Jardiance) potassium chloride 10 mEq See Rx Instructions .ROUTE .COMPLEX 08/31/20 02/15/22 Unknown tablet,extended release(part/cryst) warfarin 2 mg tablet 2 mg PO DIRECTED #0 tab 09/03/20 02/15/22 02/14/22 aspirin 81 mg tablet 81 mg PO 3XWK 02/15/22 02/15/22 Unknown insulin glargine 100 unit/mL (3 24 unit SUBCUT QAM 02/15/22 02/15/22 02/14/22 mL) subcutaneous pen (Lantus Solostar U-100 Insulin) mecobalamin (vitamin B12) 1,000 1,000 mcg PO DAILY 02/15/22 02/15/22 Unknown mcg chewable tablet (B12 Active) metformin 1,000 mg 24 hr 1,000 mg PO BIDM 02/15/22 02/15/22 02/14/22 tablet,extended release metoprolol tartrate 100 mg tablet 100 mg PO BID 02/15/22 02/15/22 Unknown Active Medications Generic Name Dose Route Start Last Admin Trade Name Desire PRN Reason Stop Dose Admin Cyanocobalamin 1,000 mcg 02/16/22 09:00 02/17/22 08:18 Cyanocobalamin (B-12) 500 Mcg Tablet PO 03/18/22 08:59 1,000 mcg DAILY LISS Administration Furosemide 40 mg 02/16/22 09:00 02/17/22 08:18 Furosemide 40 Mg Tab PO 03/18/22 08:59 40 mg QAM LISS Administration Heparin Sodium (Porcine) 5,000 units 02/16/22 21:00 02/17/22 08:19 Heparin Sod 5,000 Unit/0.5 Ml Vial SQ 03/18/22 20:59 5,000 units Q12 LISS Administration Insulin Aspart 0 units 02/15/22 21:00 02/17/22 11:24 Insulin Aspart Per Unit SC 03/17/22 20:59 Not Given ACHS LISS Insulin Glargine 7 units 02/15/22 21:00 02/17/22 08:16 Insulin Glargine Solostar 100 Units/Ml 3 Ml Pen SC 03/17/22 20:59 7 units BID LISS Administration Losartan Potassium 100 mg 02/16/22 09:00 02/17/22 08:18 Losartan Potassium 50 Mg Tab PO 03/18/22 08:59 100 mg QAM LISS Administration Metoprolol Tartrate 100 mg 02/15/22 21:00 02/17/22 08:19 Metoprolol Tartrate 100 Mg Tab PO 03/17/22 20:59 100 mg BID LISS Administration Pantoprazole Sodium 40 mg 02/16/22 11:30 02/17/22 08:19 Pantoprazole 40 Mg Tab PO 03/18/22 11:29 40 mg BID LISS Administration Potassium Chloride 10 meq 02/16/22 09:00 02/17/22 08:18 Potassium Chloride 10 Meq Tabcr PO 03/18/22 08:59 10 meq DAILY LISS Administration Rosuvastatin Calcium 20 mg 02/15/22 21:00 02/16/22 20:07 Rosuvastatin Calcium 20 Mg Tab PO 03/17/22 20:59 20 mg HS LISS Administration Vitamin D 5,000 units 02/15/22 21:00 02/16/22 20:08 Cholecalciferol 5,000 Units 125 Mcg Tab PO 03/17/22 20:59 5,000 units HS LISS Administration Past Medical History Medical History (Updated 02/17/22 @ 11:42 by Zhou Edmondson MD) 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 Cardiac pacemaker Chronic anticoagulation Coronary atherosclerosis COVID-19 Diabetes mellitus type 2 with complications DISH (diffuse idiopathic skeletal hyperostosis) Dyslipidemia Encounter for pre-operative examination History of pacemaker HTN (hypertension) IBS (irritable bowel syndrome) Low back pain Pulmonary HTN Type 2 diabetes mellitus Past Family History Family History Aunt Diabetes Uncle Diabetes Daughter Diabetes Past Surgical History Surgical History H/O: hysterectomy Hx of appendectomy Hx of CABG Social History Smoking Status: Never smoker Hx Alcohol Use: No Hx Substance Use: No Physical Exam Vital Signs Last Vital Signs Temp 36.8 C 02/17/22 10:00 Pulse 83 02/17/22 10:00 Resp 18 02/17/22 10:00 BP 109/74 02/17/22 07:30 Pulse Ox 97 02/17/22 10:00 Testing Laboratory Results 02/17/22 06:45 02/17/22 06:45 PT 14.5 Seconds (9.0-12.0) H 02/17/22 06:45 INR 1.4 (0.9-1.1) H 02/17/22 06:45 APTT 32.5 Seconds (21.0-31.0) H 02/15/22 11:14 Blood Type A Positive 02/15/22 14:07 Antibody Screen NEGATIVE 02/15/22 14:07 02/15/22 20:25 Aerobic Blood Culture - Preliminary Blood No growth in Aerobic bottle after 24 hours. Anaerobic Blood Culture - Final 02/15/22 20:31 Aerobic Blood Culture - Preliminary Blood No growth in Aerobic bottle after 24 hours. Anaerobic Blood Culture - Preliminary No growth in Anaerobic bottle after 24 hours. 02/17/22 02/17/22 11:12 07:25 POC Glucose 120 H 119 H Electrocardiogram Date: 02/15/22 Test Reason : Blood Pressure : / mmHG Vent. Rate : 076 BPM Atrial Rate : 075 BPM P-R Int : 000 ms QRS Dur : 076 ms QT Int : 378 ms P-R-T Axes : 000 -02 165 degrees QTc Int : 425 ms Poor data quality, interpretation may be adversely affected 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 with occasional ventricular-paced complexes Left ventricular hypertrophy with repolarization abnormality Abnormal ECG When compared with ECG of 15-FEB-2022 10:59, Vent. rate has decreased BY 4 BPM Confirmed by Yanick Bonilla ([id number]) on 02/16/2022 10:10:57 AM Chest X-Ray Date: 02/15/22 CLINICAL HISTORY: Atypical chest pain. COMPARISON STUDY: Chest radiograph August 31, 2020. FINDINGS: Median sternotomy wires and dual lead left subclavian pacer are in place. Moderate cardiomegaly is noted without evidence for pulmonary edema. No pneumothorax or pleural effusion is present. No consolidation to suggest pneumonia. IMPRESSION: No acute cardiopulmonary findings. Cardiomegaly. Echocardiogram Date: 02/16/22 EF: 55-60% LV Function: normal RWMA: + none
--- NOTE | 2022-02-17 11:41 | History & Physical Bridge Note ---
Date of Service February 17, 2022 History & Physical Bridge Note I have examined the patient, reviewed the History & Physical and in the interval since the performance of the History & Physical I have noted the following changes of clinical significance: no changes noted
--- NOTE | 2022-02-17 12:09 | GI REPORT ---
Patient Name: Tootie Almanza Procedure Date: 02/17/2022 11:30 AM Date of : 1940 Admit Type: Inpatient Age: 81 Gender: Female Attending MD: Bessy Salas M.d. Procedure: Upper GI endoscopy Providers: Bessy Salas M.d. Referring MD: Tereso Castillo Md Indications: Anemia Medicines: See anesthesia record Complications: No immediate complications. Estimated Blood Loss: Estimated blood loss: none. Procedure: Pre-Anesthesia Assessment: - Patient identification and proposed procedure were verified prior to the procedure by the physician, the nurse and the anesthesiologist. The procedure was verified in the pre-procedure area. - Prior to the procedure, a History and Physical was performed, and patient medications, allergies and sensitivities were reviewed. The patient's tolerance of previous anesthesia was reviewed. - The risks and benefits of the procedure and the sedation options and risks were discussed with the patient. All questions were answered and informed consent was obtained. After obtaining informed consent, the endoscope was passed under direct vision. Throughout the procedure, the patient's blood pressure, pulse, and oxygen saturations were monitored continuously. The Endoscope was introduced through the mouth, and advanced to the second part of duodenum. The upper GI endoscopy was accomplished without difficulty. The patient tolerated the procedure well. Findings: The examined esophagus appeared normal. Localized mild inflammation characterized by erosions were found in the gastric body and antrum. Biopsies were taken with a cold forceps for Helicobacter pylori testing. The pathology specimen was placed into Bottle A. Verification of patient identification for the specimen was done by the physician and nurse using the patient's name and medical record number. The examined stomach otherwise appeared normal. A few localized erosions without bleeding were found in the duodenal bulb. The second portion of the duodenum appeared normal. Impression: - Normal esophagus. - Mild gastritis. Biopsied. - Duodenal erosions without bleeding in the bulb. - Normal second portion of the duodenum. Recommendation: - Await pathology results. - Return to the floor. Maria Luz Gandhi M.d. 02/17/2022 12:09:16 PM This report has been signed electronically. Note Initiated On: 02/17/2022 11:30 AM Number of Addenda: 0 I attest to the content of the Intraoperative Record and orders documented therein, exceptions below {[id number]}
[2022-02-17] MEDS ORDERED: PROPOFOL IV EMULSION 10 MG/ML 20 ML VIAL IV ONE (12:17)
[2022-02-17] MEDS ORDERED: LIDOCAINE 2% 2 ML VIAL/AMP(20MG/ML) INFIL ONE (12:17)
--- NOTE | 2022-02-17 13:03 | Anesthesiology Progress Note ---
Date of Service February 17, 2022 Anesthesia Post Procedure Vital Signs Vital Signs: Temp Pulse Pulse Resp BP Pulse Ox 02/17/22 12:46 67 20 116/61 96 02/17/22 12:30 80 18 110/62 97 02/17/22 12:15 70 16 95/53 L 98 02/17/22 11:42 36.1 C L 78 16 122/85 99 02/17/22 10:00 36.8 C 83 18 97 02/17/22 08:00 79 02/17/22 07:30 36.8 C 76 18 109/74 96 02/17/22 03:44 36.6 C 67 16 137/81 99 02/16/22 23:43 73 02/16/22 23:04 36.8 C 71 18 117/57 L 98 02/16/22 19:10 36.6 C 74 18 102/66 99 02/16/22 15:48 36.9 C 83 20 118/60 95 02/16/22 14:44 68 02/16/22 13:41 36.6 C 87 18 107/65 96 Transfer of Care Handoff Completed per policy Notes Mental Status: alert / awake / arousable and participated in evaluation Patient Amnestic to Procedure: Yes Nausea / Vomiting: adequately controlled Pain: adequately controlled Airway Patency, RR, SpO2: stable & adequate BP & HR: stable & adequate Hydration State: stable & adequate Anesthetic Complications: no major complications apparent and Pt Satisfied with anesthetic care
--- NOTE | 2022-02-17 13:09 | Hospitalist Progress Note ---
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 - Prior baseline Hb 13-14 but no recent labs, on presentation 9.5->8 .3->9.1->9.4->9.1. No further bleeding here - S/p EGD today 01/28 with no active bleed (normal esophagus, mild gastritis, duodenal erosions without bleeding in bulb)- await pathology results - S/p iv venofer D2/2 - Since H&H >9 and no more bleed and symptoms stable, no indication for blood transfusion currently. - Resume coumadin and recheck H&H and INR in am (2) Dyspnea on exertion: likely related to her anemia and CHF, possibly Afib too. CTA chest with no PE or PNA. Had some edema due to missing her lasix but it has since resolved with resumption of her home lasix - Cardio following (3) Persistent atrial fibrillation: rate controlled; failed sotalol and amiodarone. Rate controlled on lopressor, On coumadin for anticoagulation- will resume today at higher dose 5 mg as negative work up, no further bleeding and Hb has remained stable - OP coumadin dose is 1 mg Monday and 2 mg rest of the week. (4) HTN (hypertension): BP stable, on losartan and lopressor (5) Diabetes mellitus type 2: hold metformin, on lantus and SSI- will adjust as indicated (6) Chronic diastolic CHF- on po lasix.Weight stable, I and O negative. Looks euvolemic. (7) SSS s/p dual chamber pacemaker. Pacemaker interrogation on 03/17/22 (8) H/o CAD s/p CABGx2- stable, no chest pain (9) Lung nodule- incidental finding in CT chest, 4 mm RML. Recommended OP f/u CT chest with PCP in 1 year if high risk, otherwise no follow up required in low risk cases. DVT prophylaxis- coumadin Dispo- Anticipate discharge in 1-2 days if remains stable Admission and Anticipated Discharge Date Admission Date: February 15, 2022 Subjective Seen and examined at bedside. States still with dyspnea on exertion. States over the past week, she had some headache, palpitation and dizziness which continued to build up as days went by and states she is having those symptoms today. Had bowel movement today, no blood. No bleeding from any other sites. No fever, chills or other issues. Tolerated iron infusion yesterday without issues. Awaiting for EGD. Physical Exam Physical Exam: General: Lying comfortably in bed, not in distress, on room air HEENT: EOMI, LUIS, MMM Chest: Clear breath sounds bilaterally, no wheezes or crackles CVS: Irregular, normal heart sounds Abdomen: Soft, non tender, not distended, normal bowel sounds Neuro: Awake, alert, oriented, conversing well, non focal Extremities: No cyanosis, clubbing, trace edema Results & Data Results & Data ([facility]) Vital Signs (Past 12 Hours) Vital Signs Temp Pulse Pulse Resp BP Pulse Ox 02/17/22 12:46 67 20 116/61 96 02/17/22 12:30 80 18 110/62 97 02/17/22 12:15 70 16 95/53 L 98 02/17/22 11:42 36.1 C L 78 16 122/85 99 02/17/22 10:00 36.8 C 83 18 97 02/17/22 08:00 79 02/17/22 07:30 36.8 C 76 18 109/74 96 02/17/22 03:44 36.6 C 67 16 137/81 99 Laboratory Results Short CBC 02/16/22 02/16/22 02/17/22 Range/Units 13:12 21:09 06:45 WBC 10.07 (4.8-10.8) K/uL Hgb 9.1 L 9.4 L 9.1 L (12.0-16.0) g/dL Hct 27.9 L 28.3 L 27.8 L (37-47) % Plt Count 415 H (130-400) K/uL BMP 02/17/22 06:45 Sodium 136 Potassium 3.9 Chloride 103 Carbon Dioxide 27 BUN 27 H Creatinine 0.95 Glucose 123 H Calcium 8.8 Medications Administered Current Inpatient Medications Acetaminophen (Acetaminophen 325 Mg Tab) 650 mg PO Q4H PRN PRN Reason: Pain or Fever Stop: 03/17/22 17:15 Cyanocobalamin (Cyanocobalamin (B-12) 500 Mcg Tablet) 1,000 mcg PO DAILY [facility] Stop: 03/18/22 08:59 Last Admin: 02/17/22 08:18 Dose: 1,000 mcg Documented by: Dextrose (Dextrose 50% 50 Ml Syringe) 25 - 50 ml IV UD PRN; Protocol PRN Reason: Hypoglycemia Protocol Stop: 03/17/22 19:54 Furosemide (Furosemide 40 Mg Tab) 40 mg PO QAM [facility] Stop: 03/18/22 08:59 Last Admin: 02/17/22 08:18 Dose: 40 mg Documented by: Glucagon (Glucagon For Inj 1 Mg Vial) 1 mg SQ UD PRN; Protocol PRN Reason: Hypoglycemia Protocol Stop: 03/17/22 19:54 Glucose (Glucose 10 Tabs/Tube) 4 - 8 tabs PO UD PRN; Protocol PRN Reason: Hypoglycemia Protocol Stop: 03/17/22 19:54 Glucose (Glucose 40% Gel 15 Gm Tube) 15 - 30 gm PO UD PRN; Protocol PRN Reason: Hypoglycemia Protocol Stop: 03/17/22 19:54 Heparin Sodium (Porcine) (Heparin Sod 5,000 Unit/0.5 Ml Vial) 5,000 units SQ Q12 [facility] Stop: 03/18/22 20:59 Last Admin: 02/17/22 08:19 Dose: 5,000 units Documented by: Iron Sucrose 400 mg/ Sodium (Chloride) 270 mls @ 108 mls/hr IV TODAY ONE Stop: 02/17/22 15:15 Insulin Aspart (Insulin Aspart Per Unit) 0 units SC ACHS [facility] Stop: 03/17/22 20:59 Last Admin: 02/17/22 11:24 Dose: Not Given Documented by: Insulin Glargine (Insulin Glargine Solostar 100 Units/Ml 3 Ml Pen) 7 units SC BID [facility] Stop: 03/17/22 20:59 Last Admin: 02/17/22 08:16 Dose: 7 units Documented by: Losartan Potassium (Losartan Potassium 50 Mg Tab) 100 mg PO QAM [facility] Stop: 03/18/22 08:59 Last Admin: 02/17/22 08:18 Dose: 100 mg Documented by: Metoprolol Tartrate (Metoprolol Tartrate 100 Mg Tab) 100 mg PO BID [facility] Stop: 03/17/22 20:59 Last Admin: 02/17/22 08:19 Dose: 100 mg Documented by: Miscellaneous (Carbohydrates For Hypoglycemia ) 15 - 30 gm PO UD PRN PRN Reason: Hypoglycemia Protocol Stop: 03/17/22 19:54 Pantoprazole Sodium (Pantoprazole 40 Mg Tab) 40 mg PO BID [facility] Stop: 03/18/22 11:29 Last Admin: 02/17/22 08:19 Dose: 40 mg Documented by: Potassium Chloride (Potassium Chloride 10 Meq Tabcr) 10 meq PO DAILY [facility] Stop: 03/18/22 08:59 Last Admin: 02/17/22 08:18 Dose: 10 meq Documented by: Rosuvastatin Calcium (Rosuvastatin Calcium 20 Mg Tab) 20 mg PO HS [facility] Stop: 03/17/22 20:59 Last Admin: 02/16/22 20:07 Dose: 20 mg Documented by: Vitamin D (Cholecalciferol 5,000 Units 125 Mcg Tab) 5,000 units PO HS [facility] Stop: 03/17/22 20:59 Last Admin: 02/16/22 20:08 Dose: 5,000 units Documented by: Warfarin Sodium (Warfarin Sod 5 Mg Tab) 5 mg PO DAILY@1600 [facility] Stop: 03/19/22 15:59 (1) 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 type: longstanding persistent Qualified Code(s): I48.11 - Longstanding persistent atrial fibrillation
[2022-02-17 13:27] LABS: Hematocrit (blood only) 30.1 % (37-47); Hemoglobin 9.8 g/dL (12.0-16.0)
[2022-02-17] MEDS ORDERED: IRON SUCROSE 400 MG in SODIUM CHLORIDE 0.9% 250 ML IV ONE (14:00)
[2022-02-17] MEDS: WARFARIN SOD 5 MG TAB PO SCH (16:46)
[2022-02-17] MEDS ORDERED: LORazepam 2 MG/1 ML VIAL ONE (18:40)
[2022-02-17] MEDS ORDERED: LORazepam 2 MG/1 ML VIAL IV STA (18:44)
[2022-02-17] MEDS: ROSUVASTATIN CALCIUM 20 MG TAB PO SCH (20:30)
[2022-02-17] MEDS: CHOLECALCIFEROL 5,000 UNITS 125 MCG TAB PO SCH (20:30)
[2022-02-17] MEDS: NYSTATIN CR 15 GM TUBE EXT SCH (23:17)
[2022-02-18 05:55] LABS: Hematocrit (blood only) 29.4 % (37-47); Hemoglobin 8.9 g/dL (12.0-16.0)
[2022-02-18 06:03] LABS: INR 1.4 (0.9-1.1); Prothrombin Time 14.4 Seconds (9.0-12.0)
[2022-02-18] MEDS: INSULIN ASPART PER UNIT SC SCH ×4 (08:39→20:28)
[2022-02-18] MEDS: CYANOCOBALAMIN (B-12) 500 MCG TABLET PO SCH (08:40)
[2022-02-18] MEDS: FUROSEMIDE 40 MG TAB PO SCH (08:40)
[2022-02-18] MEDS: HEPARIN SOD 5,000 UNIT/0.5 ML VIAL SQ SCH ×2 (08:40→20:30)
[2022-02-18] MEDS: LOSARTAN POTASSIUM 50 MG TAB PO SCH (08:41)
[2022-02-18] MEDS: METOPROLOL TARTRATE 100 MG TAB PO SCH ×2 (08:41→20:30)
[2022-02-18] MEDS: NYSTATIN CR 15 GM TUBE EXT SCH ×2 (08:41→20:30)
[2022-02-18] MEDS: PANTOprazole 40 MG TAB PO SCH ×2 (08:42→20:30)
[2022-02-18] MEDS: POTASSIUM CHLORIDE 10 MEQ TABCR PO SCH (08:42)
[2022-02-18] MEDS: INSULIN GLARGINE SOLOSTAR 100 UNITS/ML 3 ML PEN SC SCH ×2 (08:48→20:30)
--- NOTE | 2022-02-18 09:23 | Cardiology Progress Note ---
Date of Service February 18, 2022 Assessment & Plan (1) Symptomatic anemia: (2) Acute blood loss anemia: (3) Dyspnea on exertion: (4) Paroxysmal A-fib: (5) Weakness: (6) Infarction of spleen: (7) HTN (hypertension): (8) Aortocoronary bypass status: (9) Cardiac pacemaker: (10) Coronary atherosclerosis: (11) Tachy-aylin syndrome: Plan: Symptomatic anemia. CTA of the chest with mild thickening of the distal esophagus raising concern for esophagitis. Protonix 40 mg twice a day added in the AM of 02/16/2022. EGD on 02/17/2022 revealed a normal esophagus, mild gastritis, and duodenal erosions without bleeding in the bulb. H&H 8.9 g/dL and 29.4% on 02/18/2022. Given symptoms and underlying cardiac issues, recommend consideration for transfusion of PRBC's. 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, paroxysmal to persistent. Failed Sotalol. Failed amiodarone. Asymptomatic. Small splenic infarct noted on imaging this admission; Anticoagulation resumed 02/17/2022. Atherosclerotic coronary disease. Status post CABG x 2 as above. HS troponin negative. EKG without acute changes. Continue appropriate medical management. Diastolic congestive heart failure. Compensated. Continue the prior to arrival diuretic. Sick Sinus Syndrome. Status post dual chamber pacemaker. Device interrogation on 12/09/2021 revealed appropriate function. Remaining longevity: 2.5 years. Paroxysmal to persistent atrial fibrillation observed, relatively stable over the preceding year. Time in AT/AF 73.5%. AP-VS 20.9%. 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 -VS 54.4%. Pacemaker interrogation due next on March 17, 2022. Hypertension. Blood pressure acceptably controlled. Continue the prior to arrival antihypertensive regimen. Dyslipidemia, goal LDL below 70. LDL cholesterol 35 mg/dL on June 24, 2021. Continue rosuvastatin 20 mg/day Peripheral artery disease. Moderate left lower extremity arterial insuffic iency. [facility]ed [facility]. Admission and Anticipated Discharge Date Admission Date: February 15, 2022 Supervising Physician Co-Signing Physician Notes Supervising Physician Attestation: I have personally performed a history and physical examination on the patient. I agree with the physician learning and development assistant's findings and plan as documented with the following additions. Subjective: Patient receiving unit of packed red blood cells. Tolerating well. Exam: Pulmonary: Lungs clear Cardiovascular: Regular rhythm No edema Data: Telemetry, ongoing atrial fibrillation, controlled rate, occasional demand ventricular pacing Assessment and Plan: As outlined above. Given history of atrial fibrillation, splenic infarct on CT, as well as coronary heart disease with past CABG, ideally would prefer for patient to be on aspirin and Coumadin. At this time, Coumadin reintroduced without bridge therapy, allowing INR to trend up slowly. Reza Mancilla, Subjective Patient seen and examined. Chart, medications, and telemetry reviewed. + Dyspnea ("huffin and a puffin") when walking to and from the bathroom. No chest pain. No tachypalpitations. No resting dyspnea. No orthopnea or PND. No peripheral edema. EGD on 02/17/2022 revealed a normal esophagus, mild gastritis, and duodenal erosions without bleeding in the bulb. H&H 8.9 g/dL and 29.4% this morning. INR 1.4 Review of Systems Review of Systems: Complete Review of Systems is as stated above, negative, or noncontributory. Physical Exam Physical Exam: General: A&Ox3. NAD. + Pallor. HENT: Normocephalic and atraumatic. Eyes: PER. Sclera pale. Neck: No JVD. No HJR. No carotid bruits. Lungs: Decreased at the bases however clear to auscultation. No wheeze. Cardiovascular: Irregularly irregular at 60 bpm. Grade II/ systolic murmur heard best at the LLSB. No diastolic murmur. No rub. No gallop. PMI is nondisplaced. Abdomen: Soft, nontender. No palpable hepatosplenomegaly. Extremities: No edema. No cyanosis. No clubbing. Left lower extremity vein harvesting noted. Distal pulses not appreciated. Neurologic: Patient is intact. Results & Data ([facility]) Vital Signs (Past 12 Hours) Vital Signs Temp Pulse Pulse Resp BP Pulse Ox 02/18/22 07:02 36.6 C 78 18 138/70 95 02/18/22 03:13 36.6 C 64 18 106/65 97 02/17/22 23:01 80 02/17/22 22:50 36.6 C 74 18 106/62 98 Laboratory Results Laboratory Results - last 24 hr 02/17/22 02/17/22 02/17/22 07:25 11:12 13:15 Hgb 9.8 L Hct 30.1 L PT INR POC Glucose 119 H 120 H 02/17/22 02/17/22 02/17/22 16:25 18:41 20:05 Hgb Hct PT INR POC Glucose 155 H 208 H 217 H 02/18/22 02/18/22 02/18/22 05:20 05:20 07:13 Hgb 8.9 L Hct 29.4 L PT 14.4 H INR 1.4 H POC Glucose 118 H Diagnostic Findings February 16, 2022 TTE Interpretation Summary ([facility], Dr. Mancilla): Mild concentric LVH. Normal LV wall motion. EF 55-60%. Moderately dilated LA. Mildly calcified aortic valve. Mild AI. No aortic stenosis. Mild mitral annular calcification. mild MR and TR. Doppler findings do not suggest pulmonary hypertension. LV diastolic function is abnormal based on the presence of left atrial dilatation, but not graded due to the presence of atrial fibrillation. Telemetry: 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 with intermittent ventricular pacing, rates in t he 60's and 70's.
[2022-02-18] MEDS ORDERED: SODIUM CHLORIDE 0.9% 250 ML IV PRN (09:32)
[2022-02-18 10:37] LABS: Iron 501 mcg/dl (35-150); Unsaturated Iron Binding Cap < 55 mcg/dl (155-355)
[2022-02-18 11:05] LABS: Folate (Folic Acid) 13.29 ng/ml (>5.38)
--- NOTE | 2022-02-18 15:10 | Hospitalist Progress Note ---
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 - Prior baseline Hb 13-14 but no recent labs, on presentation 9.5->8 .3->9.1->9.4->9.1->8.9. No further bleeding here but she continues to be symptomatic with CONDE (believe there is a component of anxiety as witnessed last evening)- however considering persistent symptoms as well as cardio recommendation given her underlying cardiac issues, will transfuse 1 U PRBC. Patient agrees. - S/p EGD today 01/28 with no active bleed (normal esophagus, mild gastritis, duodenal erosions without bleeding in bulb)- await pathology results - S/p iv venofer D2/2 - S/p 1 U PRBC 02/18 - Recheck in am (2) Dyspnea on exertion: likely related to her anemia and CHF, possibly Afib too and a component of anxiety too. CTA chest with no PE or PNA. Had some edema due to missing her lasix but it has since resolved with resumption of her home lasix - Cardio following (3) Persistent atrial fibrillation: rate controlled; failed sotalol and amiodarone. Rate controlled on lopressor, On coumadin for anticoagulation- resumed 02/17, will give another 5 mg of coumadin today and recheck INR in am. - OP coumadin dose is 1 mg Monday and 2 mg rest of the week. (4) HTN (hypertension): BP stable, on losartan and lopressor (5) Diabetes mellitus type 2: hold metformin, on lantus and SSI- will adjust as indicated (6) Chronic diastolic CHF- on po lasix.Weight stable, I and O negative. Looks euvolemic. (7) SSS s/p dual chamber pacemaker. Pacemaker interrogation on 03/17/22 (8) H/o CAD s/p CABGx2- stable, no chest pain (9) Lung nodule- incidental finding in CT chest, 4 mm RML. Recommended OP f/u CT chest with PCP in 1 year if high risk, otherwise no follow up required in low risk cases. DVT prophylaxis- coumadin Dispo- Getting PRBC transfusion today. Anticipate discharge tomorrow if symptoms improved Admission and Anticipated Discharge Date Admission Date: February 15, 2022 Subjective Had an episode of severe shortness of breath last evening 'worst ever' per her. This morning slightly better but still has dyspnea on exertion. Discussed about PRBC transfusion given her persistent symptoms and she agrees. No bleeding issues. No chest pain, palpitations, light headedness, dizziness. Physical Exam Physical Exam: General: Lying comfortably in bed, not in distress, on room air HEENT: EOMI, LUIS, MMM Chest: Clear breath sounds bilaterally, no wheezes or crackles CVS: Irregular, normal heart sounds Abdomen: Soft, non tender, not distended, normal bowel sounds Neuro: Awake, alert, oriented, conversing well, non focal Extremities: No cyanosis, clubbing, trace edema Results & Data Results & Data ([facility]) Vital Signs (Past 12 Hours) Vital Signs Temp Pulse Pulse Resp BP BP Pulse Ox 02/18/22 14:48 36.3 C L 67 16 100/65 99 02/18/22 13:48 36.5 C 69 16 109/52 L 96 02/18/22 13:18 36.5 C 73 18 103/66 02/18/22 13:03 36.6 C 82 20 128/78 02/18/22 12:47 36.3 C L 79 18 117/72 99 02/18/22 11:37 36.6 C 78 18 110/69 98 02/18/22 08:00 86 02/18/22 07:02 36.6 C 78 18 138/70 95 02/18/22 03:13 36.6 C 64 18 106/65 97 Laboratory Results Short CBC 02/18/22 Range/Units 05:20 Hgb 8.9 L (12.0-16.0) g/dL Hct 29.4 L (37-47) % Medications Administered Current Inpatient Medications Acetaminophen (Acetaminophen 325 Mg Tab) 650 mg PO Q4H PRN PRN Reason: Pain or Fever Stop: 03/17/22 17:15 Cyanocobalamin (Cyanocobalamin (B-12) 500 Mcg Tablet) 1,000 mcg PO DAILY [facility] Stop: 03/18/22 08:59 Last Admin: 02/18/22 08:40 Dose: 1,000 mcg Documented by: Dextrose (Dextrose 50% 50 Ml Syringe) 25 - 50 ml IV UD PRN; Protocol PRN Reason: Hypoglycemia Protocol Stop: 03/17/22 19:54 Furosemide (Furosemide 40 Mg Tab) 40 mg PO QAM [facility] Stop: 03/18/22 08:59 Last Admin: 02/18/22 08:40 Dose: 40 mg Documented by: Glucagon (Glucagon For Inj 1 Mg Vial) 1 mg SQ UD PRN; Protocol PRN Reason: Hypoglycemia Protocol Stop: 03/17/22 19:54 Glucose (Glucose 10 Tabs/Tube) 4 - 8 tabs PO UD PRN; Protocol PRN Reason: Hypoglycemia Protocol Stop: 03/17/22 19:54 Glucose (Glucose 40% Gel 15 Gm Tube) 15 - 30 gm PO UD PRN; Protocol PRN Reason: Hypoglycemia Protocol Stop: 03/17/22 19:54 Heparin Sodium (Porcine) (Heparin Sod 5,000 Unit/0.5 Ml Vial) 5,000 units SQ Q12 [facility] Stop: 03/18/22 20:59 Last Admin: 02/18/22 08:40 Dose: 5,000 units Documented by: Sodium Chloride (Nss) 250 mls @ 15 mls/hr IV .[id number] PRN PRN Reason: For Transfusion Stop: 02/18/22 19:33 Insulin Aspart (Insulin Aspart Per Unit) 0 units SC ACHS [facility] Stop: 03/17/22 20:59 Last Admin: 02/18/22 12:10 Dose: 5 units Documented by: Insulin Glargine (Insulin Glargine Solostar 100 Units/Ml 3 Ml Pen) 7 units SC BID [facility] Stop: 03/17/22 20:59 Last Admin: 02/18/22 08:48 Dose: 7 units Documented by: Losartan Potassium (Losartan Potassium 50 Mg Tab) 100 mg PO QAM [facility] Stop: 03/18/22 08:59 Last Admin: 02/18/22 08:41 Dose: 100 mg Documented by: Metoprolol Tartrate (Metoprolol Tartrate 100 Mg Tab) 100 mg PO BID [facility] Stop: 03/17/22 20:59 Last Admin: 02/18/22 08:41 Dose: 100 mg Documented by: Miscellaneous (Carbohydrates For Hypoglycemia ) 15 - 30 gm PO UD PRN PRN Reason: Hypoglycemia Protocol Stop: 03/17/22 19:54 Nystatin (Nystatin Cr 15 Gm Tube) 1 appln EXT BID [facility] Stop: 03/19/22 21:14 Last Admin: 02/18/22 08:41 Dose: 1 appln Documented by: Pantoprazole Sodium (Pantoprazole 40 Mg Tab) 40 mg PO BID [facility] Stop: 03/18/22 11:29 Last Admin: 02/18/22 08:42 Dose: 40 mg Documented by: Potassium Chloride (Potassium Chloride 10 Meq Tabcr) 10 meq PO DAILY [facility] Stop: 03/18/22 08:59 Last Admin: 02/18/22 08:42 Dose: 10 meq Documented by: Rosuvastatin Calcium (Rosuvastatin Calcium 20 Mg Tab) 20 mg PO HS [facility] Stop: 03/17/22 20:59 Last Admin: 02/17/22 20:30 Dose: 20 mg Documented by: Vitamin D (Cholecalciferol 5,000 Units 125 Mcg Tab) 5,000 units PO HS [facility] Stop: 03/17/22 20:59 Last Admin: 02/17/22 20:30 Dose: 5,000 units Documented by: Warfarin Sodium (Warfarin Sod 5 Mg Tab) 5 mg PO DAILY@1600 [facility] Stop: 03/19/22 15:59 Last Admin: 02/17/22 16:46 Dose: 5 mg Documented by: (1) 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 type: longstanding persistent Qualified Code(s): I48.11 - Longstanding persistent atrial fibrillation
[2022-02-18] MEDS: WARFARIN SOD 5 MG TAB PO SCH (17:06)
[2022-02-18] MEDS: ROSUVASTATIN CALCIUM 20 MG TAB PO SCH (20:30)
[2022-02-18] MEDS: CHOLECALCIFEROL 5,000 UNITS 125 MCG TAB PO SCH (20:30)
[2022-02-19 06:26] LABS: Hematocrit (blood only) 33.8 % (37-47)
[2022-02-19 06:39] LABS: INR 2.4 (0.9-1.1)
[2022-02-19] MEDS: CYANOCOBALAMIN (B-12) 500 MCG TABLET PO SCH (08:01)
[2022-02-19] MEDS: METOPROLOL TARTRATE 100 MG TAB PO SCH (08:03)
[2022-02-19] MEDS: FUROSEMIDE 40 MG TAB PO SCH (08:03)
[2022-02-19] MEDS: NYSTATIN CR 15 GM TUBE EXT SCH (08:03)
[2022-02-19] MEDS: POTASSIUM CHLORIDE 10 MEQ TABCR PO SCH (08:03)
[2022-02-19] MEDS: PANTOprazole 40 MG TAB PO SCH (08:03)
[2022-02-19] MEDS: INSULIN GLARGINE SOLOSTAR 100 UNITS/ML 3 ML PEN SC SCH (08:04)
[2022-02-19] MEDS: LOSARTAN POTASSIUM 50 MG TAB PO SCH (08:04)
[2022-02-19] MEDS: INSULIN ASPART PER UNIT SC SCH (08:07)
--- NOTE | 2022-02-19 13:31 | Discharge Summary ---
Date of Service February 19, 2022 Admission HPI Per Admitting Provider This is a 81 y/o female with a PMH atrial fibrillation on chronic anticoagulation, insulin-requiring DM2, pulmonary HTN, CKD 3a, DISH, dyslipidemia, diastolic heart failure, and CAD s/p CABG x2 who presented to the ED today with progressive breathing issues. Pt was at pain management and they were concerned about her breathing so they contacted cardiology who recommend ED evaluation. Pt reports dyspnea on exertion as a chronic issues but this has been worsening slowly over time but especially over the past 2-3 weeks. Pt does take Lasix for LE edema but reports that she has missed multiple doses lately because she didn't want to take it before her frequent appointments. She has noted some mild left chest pain that is not new although she cannot remember exactly when it started. She has had fatigue and weakness for the past 3 months but worse past several days. Of note, she had a dental extraction on January 25. She did hold her warfarin for five days but then restarted this. She reports that she has had three episodes of bleeding from the extraction site where she was "spitting blood for an hour" each time - estimates a cup of blood loss each time. She noted the she pulled out some pieces of the sutures during each episode of bleeding. Last episode at least a week ago. Her blood sugars have been running high since the extraction - she checks them daily in the AM and they've been around 200 (baseline 140s). Last A1c checked on 01/21/22 and was 8.9. Pt had some frequent episodes of epistaxis in October for which she was seen in the ED but these seem to have improved since then. Admission Exam Per Admitting Provider Constitutional: well developed and well nourished; no acute distress Eyes: + anicteric sclerae ENMT: lower gumline with healing extraction sites - no active bleeding, no erythema or purulent drainage Neck: trachea midline Respiratory: no respiratory distress and no labored breathing Auscultation: lungs clear to auscultation bilaterally; no rales, no rhonchi and no wheezes Cardiovascular: Rate/Rhythm: + irregularly irregular Vessels: dorsalis pedis pulses present and radial pulses present Extremities: + edema (1+ bilateral pitting) Gastrointestinal (Abdomen): Inspection/Auscultation: normal bowel sounds; abdomen not distended Percussion/Palpation: abdomen soft; abdomen nontender Musculoskeletal: Head/Neck/Chest: normocephalic, head atraumatic and neck supple Skin: no jaundice Neurologic: moves all extremities; no focal motor deficits Psychiatric: A+Ox3, euthymic affect Principal Diagnosis Acute blood loss anemia, symptomatic anemia Discharge Exam General: Lying comfortably in bed, not in distress, on room air HEENT: EOMI, LUIS, MMM Chest: Clear breath sounds bilaterally, no wheezes or crackles CVS: Irregular, normal heart sounds Abdomen: Soft, non tender, not distended, normal bowel sounds Neuro: Awake, alert, oriented, conversing well, non focal Extremities: No cyanosis, clubbing, trace edema Ambulated independently with me without any issues- no dyspnea on exertion noted Discharge Data Allergies Allergy/AdvReac Type Severity Reaction Status Date / Time lisinopril Allergy Intermediate Cough Unverified 02/15/22 13:04 cefazolin Allergy Unknown CEPHALEXIN-PT Verified 02/15/22 13:04 DOESN'T REMEMBER WHAT HAPPENED tetanus toxoid, adsorbed Allergy Unknown LOCAL Verified 02/15/22 13:04 REACTION/FEVER oxycodone AdvReac Unknown NAUSEA/STOMACH Verified 02/15/22 13:04 PAINS Consultations 02/15/22 14:51 ED Decision to Admit Stat 02/15/22 17:16 Consult Cardiology Routine 02/16/22 11:22 Consult Gastroenterology Routine Procedures Performed Operation Date: 02/17/22 17:00 Actual Procedures p EGD Biopsy Cytology - Bessy Salas MD Ordered Studies 02/15/22 12:59 CT angio chest PE protocol Stat CT head/brain wo con Stat 02/15/22 13:24 CT abd pelvis IV con only Stat Hospital Course (1) Acute blood loss anemia: (2) 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: (3) Diabetes mellitus type 2 with complications: (4) Current use of halfway anticoagulation: (1) Acute blood loss anemia/ Symptomatic anemia with CONDE - Pt with multiple episodes of bleeding s/p dental extraction earlier this month, last one being 6 days back [employer]; no bleeding since then. - Prior baseline Hb 13-14 but no recent labs, on presentation 9.5->8.3->9.1->9.4->9.1->8.9- >11 - No further bleeding here but she continues to be symptomatic with CONDE for which she was transfused 1 U of PRBC, Hb 11 this am. - S/p EGD 02/17 with no active bleed (normal esophagus, mild gastritis, duodenal erosions without bleeding in bulb)- await pathology results- f/u with GI- being discharged on protonix - S/p iv venofer x2 doses - CONDE resolved. ambulated with me in the [place] today without any issues. (2) Persistent atrial fibrillation: rate controlled; failed sotalol and amiodarone. Rate controlled on lopressor, On coumadin for anticoagulation- resumed 02/17, INR therapeutic- she will resume her home dose from today and will have INR check on Monday and follow up with [facility] - OP coumadin dose is 1 mg Monday and 2 mg rest of the week. (3) HTN (hypertension): BP stable, on losartan and lopressor (4) Diabetes mellitus type 2: hold metformin, on lantus and SSI- will adjust as indicated (5) Chronic diastolic CHF- on po lasix.Weight stable, I and O negative. Looks euvolemic. (6) SSS s/p dual chamber pacemaker. Pacemaker interrogation on 03/17/22 (7) H/o CAD s/p CABGx2- stable, no chest pain (8) Lung nodule- incidental finding in CT chest, 4 mm RML. Recommended OP f/u CT chest with PCP in 1 year if high risk, otherwise no follow up required in low risk cases. Total Time Total Time Spent Total Time Spent (In Minutes): 40 Discharge Plan Discharge Items Patient Disposition: Home - Self-Care Reason For Visit: ACUTE BLOOD LOSS ANEMIA, WEAKNESS Discharge Diagnosis: Acute blood loss anemia, symptomatic anemia Activity: Resume your previous activity Non-emergency contact: Primary Care Provider Call non-emergency contact if: you have any medication questions and your symptoms worsen Follow-up/Referrals: Laverne Becker DO [Primary Care Provider] - (Date & Time 02/23/2022 2:00 PM Provider Laverne Becker DO Department [facility] ) Diet: Carb Consistent or DM2 Addtl Attending Provider Instructions: Continue your coumadin as you were taking before Recommend repeat INR on Monday Recommend repeat CBC in a week Follow up with your family doctor and [facility] anticoagulation clinic Pending Studies at Discharge: Yes (Biopsy results- H pylori) Stand-Alone Forms: [facility], Smoking Cessation Medications and DC Order Prescriptions: New pantoprazole [Protonix] 40 mg tablet,delayed release (DR/EC) 40 mg PO DAILY Qty: 30 RF: 0 Continued losartan 100 mg tablet 100 mg PO QAM RF: 0 nitroglycerin 0.4 mg tablet, sublingual 0.4 mg SL DIRECTED PRN (Reason: Chest Pain) RF: 0 rosuvastatin 20 mg tablet 20 mg PO HS RF: 0 cholecalciferol (vitamin D3) 5,000 unit capsule 5,000 units PO HS RF: 0 furosemide [Lasix] 20 mg tablet See Rx Instructions .ROUTE .COMPLEX RF: 0 Jardiance 25 mg tablet 25 mg PO QAM RF: 0 potassium chloride 10 mEq tablet,ER particles/crystals See Rx Instructions .ROUTE .COMPLEX RF: 0 warfarin 2 mg tablet 2 mg PO DIRECTED Qty: 0 RF: 0 metformin 1,000 mg tablet,ER kwan.retention 24 hr 1,000 mg PO BIDM RF: 0 Lantus Solostar U-100 Insulin 100 unit/mL (3 mL) insulin pen 24 unit subcut QAM RF: 0 metoprolol tartrate 100 mg tablet 100 mg PO BID RF: 0 aspirin 81 mg Tablet 81 mg PO 3XWK RF: 0 B12 Active 1,000 mcg Tablet,Chewable 1,000 mcg PO DAILY RF: 0 Discharge Orders: Discharge Order (Routine); Ordered 02/19/22 Ordered By: Tereso Castillo Admission Data Admit Date/Time: 02/15/22 15:41 Attending Provider: Tereso Castillo Admit Provider: Elizabeth Gaines Primary Care Provider: Laverne Becker Other Providers: Elizabeth Gaines ; Reza Mancilla ; Dyana Montes De Oca ; Drea Green ; Inocencio Butler ; Maribell No ; Mik Davenport ; Urszula Butterfield ; Yolanda Guardado ; Trent Cesar ; Gertrude Edwards ; Roula Hogan ; Tamika Chaudhari ; Bessy Salas ; Jacki Buitrago Other Interventions: Discharge Summary Assessment (RN) Last Done: 02/19/22 08:42
[2022-02-19] MEDS ORDERED: WARFARIN SOD 1 MG TAB PO SCH (16:00)
== END 2022-02-19 09:39 | disposition home or self-care (01) | DRG 812 ==
LOC: ED 10:41 → 2S 15:41 → SUATTDRO 15:41 → 2S 16:19

== ENCOUNTER 2024-10-24 15:55 | Inpatient (IN) ==
[2024-10-24] MEDS: ACETAMINOPHEN 1,000 MG/100 ML VIAL IV STA (17:00)
[2024-10-24 17:22] LABS: Base Excess VBG 0.3 mEq/L; HCO3 VBG 23 mmol/L; Oxygen Saturation VBG < 60.0 %; PCO2 VBG 32 mmHg (38-50); PO2 VBG < 20 mmHg; pH VBG 7.47 (7.36-7.41)
--- NOTE | 2024-10-24 17:30 | XRay Report ---
EXAM: XR chest 1V not portable CLINICAL HISTORY: COUGH, SOB TECHNIQUE: X-ray images of the chest were obtained in AP projections. COMPARISON: No prior studies are available for comparison. FINDINGS: Pulmonary Parenchyma: Bilateral mild prominent bronchovascular markings may denote mild congestive changes, and correlate clinically. No major collapse or consolidation. Both costophrenic angles appear clear. The left apical region is obscured by the patient's face. Heart and Mediastinum: Heart size is enlarged. No mediastinal widening or masses. No hilar or mediastinal lymphadenopathy. Dual lead pacemaker in place, with prior sternotomy. Bony Thorax: The bony thorax appears intact without fractures or deformities. Degenerative changes in the visualized spine and both acromioclavicular joints Soft Tissues: Soft tissues overlying the chest wall are unremarkable. IMPRESSION: 1. Cardiomegaly. Bilateral mild prominent perihilar bronchovascular markings may denote mild vascular congestive changes, correlate clinically. 2. Obliterated left costophrenic angle, may be a small effusion/thickening. Electronically signed by Vitaly Sykes 10-24-2024 5:30 PM
--- NOTE | 2024-10-24 17:48 | CT Scan Report ---
EXAMINATION: Head CT without CLINICAL HISTORY: Altered mental status PRIORS: 04/25/2023 TECHNIQUE: Contiguous axial images were obtained through the head without the use of intravenous contrast. Sagittal and coronal reformations are supplied. FINDINGS: Mild motion artifact degrades image quality. Appropriate parenchymal volume is noted. Webber-white differentiation is preserved. No edema or midline shift. No intra-axial or extra-axial hemorrhage. Ventricles are normal in size and configuration. Brainstem and cerebellum have a normal appearance. Calvarium unremarkable. Paranasal sinuses and mastoid air cells are well-pneumatized. Globes are intact. No retrobulbar abnormality. IMPRESSION: No CT evidence of an acute intracranial abnormality. Electronically signed by Britni Messina 10-24-2024 5:48 PM
[2024-10-24 17:50] LABS: BUN Creatinine Ratio 17.4 (10-20); Bilirubin Direct 0.2 mg/dl (0-0.2); Bilirubin,Total 0.6 mg/dl (0.2-1.0); Creatinine Clr Calc Pharmacy 33.9 ml/min; Total Protein 7.7 gm/dl (6.0-8.3)
[2024-10-24 17:56] LABS: Troponin I High Sensitivity 8.1 pg/ml (0-14)
[2024-10-24 18:02] LABS: INR 2.2 (0.9-1.1); Partial Thromboplastin Ratio 1.4; Partial Thromboplastin Time 38 Seconds (21-31); Prothrombin Time 22.5 Seconds (9.0-12.0)
[2024-10-24 18:31] LABS: Basophils # (auto) 0.06 K/uL (0.00-0.20); Basophils % (auto) 0.4 %; Eosinophils # (auto) 0.01 K/uL (0.00-0.50); Eosinophils % (auto) 0.1 %; Hematocrit (blood only) 35.1 % (37.0-47.0); Hemoglobin 11.9 g/dl (12.0-16.0); Immature Granulocytes # (auto) 0.09 K/uL (0.01-0.20); Immature Granulocytes % (auto) 0.5 %; Lymphocytes # (auto) 2.07 K/uL (1.20-3.40); Lymphocytes % (auto) 12.3 %; Mean Corpuscular Hemoglobin 30.5 pg (25.0-34.0); Mean Corpuscular Hgb Conc 33.9 g/dL (32.0-36.0); Mean Platelet Volume 9.9 fL (9.4-12.4); Monocytes % (auto) 7.1 %; Neutrophils # (auto) 13.39 K/uL (1.40-6.50); Neutrophils % (auto) 79.6 %; Platelet Count 210 K/uL (130-400); RDW Coefficient of Variation 14.5 % (11.5-14.5); RDW Standard Deviation 47.1 fL (36.4-46.3); White Blood Count 16.82 K/ul (4.8-10.8)
[2024-10-24 18:36] LABS: Adenovirus PCR Not Detected (NotDetected); Bordetella parapertussis PCR Not Detected (NotDetected); Bordetella pertussis PCR Not Detected (NotDetected); Chlamydia pneumoniae PCR Not Detected (NotDetected); Coronavirus 229E PCR Not Detected (NotDetected); Coronavirus CoV-2 (COVID19)PCR Not Detected (NotDetected); Coronavirus HKU1 PCR Not Detected (NotDetected); Coronavirus NL63 PCR Not Detected (NotDetected); Coronavirus OC43PCR Not Detected (NotDetected); Human Metapneumovirus PCR Not Detected (NotDetected); Influenza A PCR Not Detected (NotDetected); Influenza B PCR Not Detected (NotDetected); Mycoplasma pneumoniae PCR Not Detected (NotDetected); Parainfluenza Virus 1 PCR Not Detected (NotDetected); Parainfluenza Virus 2 PCR Not Detected (NotDetected); Parainfluenza Virus 3 PCR Not Detected (NotDetected); Parainfluenza Virus 4 PCR Not Detected (NotDetected); Respiratory Syncytial VirusPCR Not Detected (NotDetected); Rhinovirus/Enterovirus PCR Not Detected (NotDetected)
[2024-10-24 19:31] LABS: Appearance Urine Clear (Clear); Bacteria Urine Automated 1+ (None Seen); Bilirubin Urine Negative (Negative); Blood Urine Negative (Negative); Cast Urine Automated 0-2 /lpf (0-2); Color Urine Yellow; Glucose Urine UA 3+ (Negative); Ketones Urine Negative (Negative); Leukocyte Esterase Urine 1+ (Negative); Nitrite Urine Negative (Negative); Protein Urine 1+ (Negative); RBC Urine Automated 0-2 /hpf (0-2); Specific Gravity Urine 1.027 (1.000-1.030); Urobilinogen Urine Negative (Negative); WBC Urine Automated 21-50 /hpf (0-5); pH Urine 7.5 (4.5-7.5)
[2024-10-24] MEDS: FUROSEMIDE 40 MG/4 ML VIAL IV ONE (20:43)
[2024-10-24] MEDS: CIPROFLOXACIN / D5W 400 MG/200 ML BAG IV STA (20:43)
--- NOTE | 2024-10-24 22:23 | History & Physical Report ---
Date of Service October 24, 2024 Assessment & Plan (1) SOB (shortness of breath): Plan: Shortness of breath secondary to subacute CHF History of diastolic dysfunction Underlying pulmonary hypertension ? Secondary to suboptimal BP control Complicated UTI, no sepsis for now hx CAD status post CABG SSS status post PPM on Coumadin, INR therapeutic hyperlipidemia/statin intolerance DM2 on oral medications, suboptimal control as of recent hemoglobin A1c of 7.6 in August 2024 CRI, creatinine better than last outpatient baseline. PCU Titrate home BP meds ? add Imdur to regimen as contemplated by cardiology provider on recent outpatient visit August 2024 Strict I/Os, daily weights, CHF education, fluid restriction Cardiology consult Subsequent diuretic Rx as per cardiology Urine CS, Ceftriaxone Basal bolus insulin, ISS BG goal 1 10-1 40, carb count coverage PT OT eval DVT prophylaxis. Coumadin INR goal between 2 and 3 DNR as per patient prior directives. Patient request for to be given updates regarding care. Mr. Trent Almanza, contact numbers [phone]. Text document was generated using [employer] voice recognition software. It may contain grammatical or spelling errors. Kindly contact undersigned for clarification of any documentation item in question. History of Present Illness Chief Complaint: Shortness of breath, confusion Primary Care Provider: Pete Ambriz MD History obtained from patient and records. Medical history significant for chronic diastolic heart failure (EF 55 to 59%, TTE 2023), mild TR, CAD status post CABG, SSS status post PPM on Coumadin, hypertension, hyperlipidemia/statin intolerance, pulmonary hypertension, DISH, DM2 on oral medications, CRI (patient creatinine 1.4). Last confinement January 2022 acute blood loss secondary to dental procedure/epistaxis. Patient with intermittent SOB symptoms the last couple of months. Compliant with home medications. Denies chest pain or cough symptoms. Patient not sure about fluid retention. Patient noted to be more confused than usual today. Patient denies abdominal or flank pain or hematuria. Patient brought to ER for evaluation. Lasix and ceftriaxone administered at the ER for possible UTI. Medical History as above Surgical History : CABG, PPM, D&C, shoulder abscess drainage, PRINCE, appendectomy Family History : DM, heart disease Personal/Social history : Non-smoker, no EtOH intake, lives with Allergies Allergy/AdvReac Type Severity Reaction Status Date / Time lisinopril Allergy Intermediate Cough Verified 10/24/24 20:56 cefazolin Allergy Unknown CEPHALEXIN-PT Verified 10/24/24 20:56 DOESN'T REMEMBER WHAT HAPPENED tetanus toxoid, adsorbed Allergy Unknown LOCAL Verified 10/24/24 20:56 REACTION/FEVER oxycodone AdvReac Unknown NAUSEA/STOMACH Verified 10/24/24 20:56 PAINS Home Medications Medication Instructions Recorded Confirmed Type cholecalciferol (vitamin D3) 125 5,000 units PO HS 06/25/19 10/24/24 History mcg (5,000 unit) capsule losartan 100 mg tablet 100 mg PO QAM 06/25/19 10/24/24 History nitroglycerin 0.4 mg sublingual 0.4 mg sublingual DIRECTED PRN 06/25/19 10/24/24 History tablet Chest Pain rosuvastatin 20 mg tablet 20 mg PO HS 06/25/19 10/24/24 History furosemide 20 mg tablet (Lasix) See Rx Instructions .Route .COMPLEX 10/24/19 10/24/24 History empagliflozin 25 mg tablet 25 mg PO QAM 08/31/20 10/24/24 History (Jardiance) potassium chloride 10 mEq See Rx Instructions .Route .COMPLEX 08/31/20 10/24/24 History tablet,extended release(part/cryst) warfarin 2 mg tablet 2 mg PO DIRECTED #0 tabs 09/03/20 10/24/24 Rx aspirin 81 mg tablet 81 mg PO 3XWK 02/15/22 10/24/24 History insulin glargine 100 unit/mL (3 24 unit subcut QAM 02/15/22 10/24/24 History mL) subcutaneous pen (Lantus Solostar U-100 Insulin) mecobalamin (vitamin B12) 1,000 1,000 mcg PO DAILY 02/15/22 10/24/24 History mcg chewable tablet (B12 Active) metformin 1,000 mg 24 hr 1,000 mg PO BIDM 02/15/22 10/24/24 History tablet,extended release (gastric reten.) metoprolol tartrate 100 mg tablet 100 mg PO BID 02/15/22 10/24/24 History pantoprazole 40 mg tablet,delayed 40 mg PO DAILY #30 tabs 02/19/22 10/24/24 Rx release (Protonix) Past Med/Surg History Problem List (Updated 10/25/24 @ 08:57 by Silverio Maki MD) SOB (shortness of breath) CHF (congestive heart failure) (Acute) Acute UTI (Acute) AMS (altered mental status) (Acute) Dyspnea on exertion Pacemaker (Acute) Infarction of spleen (Acute) Anemia (Acute) Current use of long term care administrator anticoagulation (Acute) 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 (Acute) Do not resuscitate status Diabetes mellitus type 2 with complications 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 with RVR (Acute) COVID-19 (Acute) Lumbar radiculopathy (Chronic) Chronic anticoagulation (Chronic) Low back pain (Chronic) Aortocoronary bypass status (Chronic) Cardiac pacemaker (Chronic) DISH (diffuse idiopathic skeletal hyperostosis) (Chronic) IBS (irritable bowel syndrome) (Chronic) Coronary atherosclerosis (Chronic) Pulmonary HTN (Chronic) Hyponatremia (Chronic) Dyslipidemia (Chronic) Type 2 diabetes mellitus (Chronic) 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 (Chronic) Hyperlipidemia (Chronic) DM type 2 (diabetes mellitus, type 2) (Chronic) Tachy-aylin syndrome (Chronic) "s/p pacemaker" HTN (hypertension) (Chronic) Paroxysmal atrial fibrillation (Chronic) "on chronic anticoagulation" CAD (coronary artery disease) (Chronic) Medical History Encounter for pre-operative examination History of pacemaker Surgical History Hx of CABG H/O: hysterectomy Hx of appendectomy Family History Aunt Diabetes Uncle Diabetes Daughter Diabetes Mother Hypertension Heart disease Father Hypertension Heart disease Social History Smoking Status: Never smoker Second Hand Exposure: No; Do You Dip or Chew Tobacco: No; Hx Alcohol Use: No Hx Substance Use: No Preferred Language: Indian Communication Ability: Effective Visual Impairment: No Limitations Hearing Ability: Normal Computer Equipment Installer Required: No Beliefs That Will Affect Care: None marital status: Current Living Situation: Spouse current occupational status: retired Other Information That Helps Us Care for You: No Feels Safe at Home: Yes Safety Concerns: Feels Safe At This Time Assistive Devices: Denture - Upper Review of Systems Review of Systems: As per HPI, all other systems reviewed and negative Physical Exam Physical Exam: GENERAL: Comfortable, pleasant, no respiratory distress SKIN: Normal color, warm HEENT: [place] palpebral conjunctivae, no ptosis, dry buccal mucosa NECK : Supple, no tenderness CHEST : Decreased breath sounds, no tenderness HEART : RRR, systolic murmur ABDOMEN: Some distention, nontender EXTREMITIES : Minimal LE swelling/tenderness, no other conspicuous deformities noted NEUROLOGIC : Coherent, no facial asymmetry, gait and stance not assessed Results & Data Results & Data Vital Signs (Past 12 Hours) Vital Signs Temp Pulse Pulse Resp BP BP Pulse Ox 10/24/24 21:08 60 10/24/24 20:00 61 18 157/67 H 96 10/24/24 18:41 37.2 C 60 22 120/54 L 96 10/24/24 17:50 65 10/24/24 16:39 97 10/24/24 16:39 61 22 121/53 L 97 10/24/24 16:03 37.9 C H 61 28 H 122/51 L 97 O2 Del Method 10/24/24 21:08 10/24/24 20:00 Room Air 10/24/24 18:41 Room Air 10/24/24 17:50 10/24/24 16:39 Room Air 10/24/24 16:39 Room Air 10/24/24 16:03 Room Air Laboratory Results Laboratory Results WBC 16.82 K/ul (4.8-10.8) H 10/24/24 18:12 RBC 3.90 M/uL (4.20-5.40) L 10/24/24 18:12 Hgb 11.9 g/dl (12.0-16.0) L 10/24/24 18:12 Hct 35.1 % (37.0-47.0) L 10/24/24 18:12 MCV 90.0 fL (80.0-100.0) 10/24/24 18:12 MCH 30.5 pg (25.0-34.0) 10/24/24 18:12 MCHC 33.9 g/dL (32.0-36.0) 10/24/24 18:12 RDW Std Deviation 47.1 fL (36.4-46.3) H 10/24/24 18:12 RDW Coeff of Alex 14.5 % (11.5-14.5) 10/24/24 18:12 Plt Count 210 K/uL (130-400) 10/24/24 18:12 MPV 9.9 fL (9.4-12.4) 10/24/24 18:12 Immature Gran % (Auto) 0.5 % 10/24/24 18:12 Neut % (Auto) 79.6 % 10/24/24 18:12 Lymph % (Auto) 12.3 % 10/24/24 18:12 [place] % (Auto) 7.1 % 10/24/24 18:12 Eos % (Auto) 0.1 % 10/24/24 18:12 Baso % (Auto) 0.4 % 10/24/24 18:12 Neut # (Auto) 13.39 K/uL (1.40-6.50) H 10/24/24 18:12 Lymph # (Auto) 2.07 K/uL (1.20-3.40) 10/24/24 18:12 [place]man # (Auto) 1.20 K/uL (0.11-0.59) H 10/24/24 18:12 Eos # (Auto) 0.01 K/uL (0.00-0.50) 10/24/24 18:12 Baso # (Auto) 0.06 K/uL (0.00-0.20) 10/24/24 18:12 Immature Gran # (Auto) 0.09 K/uL (0.01-0.20) 10/24/24 18:12 PT 22.5 Seconds (9.0-12.0) H 10/24/24 17:11 INR 2.2 (0.9-1.1) H 10/24/24 17:11 APTT 38 Seconds (21-31) H 10/24/24 17:11 PTT Ratio 1.4 10/24/24 17:11 VBG pH 7.47 (7.36-7.41) H 10/24/24 17:11 VBG pCO2 32 mmHg (38-50) L 10/24/24 17:11 VBG pO2 < 20 mmHg 10/24/24 17:11 VBG HCO3 23 mmol/L 10/24/24 17:11 VBG O2 Saturation < 60.0 % 10/24/24 17:11 VBG Base Excess 0.3 mEq/L 10/24/24 17:11 Sodium 134 mmol/L (136-145) L 10/24/24 17:11 Potassium 4.0 mmol/L (3.5-5.1) 10/24/24 17:11 Chloride 102 mmol/L (98-107) 10/24/24 17:11 Carbon Dioxide 23 mmol/L (21-32) 10/24/24 17:11 Anion Gap 9 (3-11) 10/24/24 17:11 BUN 21 mg/dl (6-23) 10/24/24 17:11 Creatinine 1.21 mg/dl (0.6-1.2) H 10/24/24 17:11 Est Cr Clr Drug Dosing 33.9 ml/min 10/24/24 17:11 eGFR 44.75 10/24/24 17:11 BUN/Creatinine Ratio 17.4 (10-20) 10/24/24 17:11 Glucose 116 mg/dl (70-99(Fasting)) H 10/24/24 17:11 Lactate 1.9 mmol/L (0.4-2.0) 10/24/24 17:11 Calcium 9.0 mg/dl (8.6-10.3) 10/24/24 17:11 Magnesium 2.0 mg/dl (1.7-2.4) 10/24/24 17:11 Total Bilirubin 0.6 mg/dl (0.2-1.0) 10/24/24 17:11 Direct Bilirubin 0.2 mg/dl (0-0.2) 10/24/24 17:11 AST 27 U/L (13-39) 10/24/24 17:11 ALT 28 U/L (7-52) 10/24/24 17:11 Alkaline Phosphatase 48 U/L (34-104) 10/24/24 17:11 Troponin I High Sens 8.1 pg/ml (0-14) 10/24/24 17:11 B-Natriuretic Peptide 133 pg/ml (0-100) H 10/24/24 17:11 Total Protein 7.7 gm/dl (6.0-8.3) 10/24/24 17:11 Albumin 4.0 gm/dl (3.4-5.0) 10/24/24 17:11 Procalcitonin 0.14 ng/ml (0-0.5) 10/24/24 17:11 Urine Color Yellow 10/24/24 19:18 Urine Appearance Clear (Clear) 10/24/24 19:18 Urine pH 7.5 (4.5-7.5) 10/24/24 19:18 Ur Specific [place] 1.027 (1.000-1.030) 10/24/24 19:18 Urine Protein 1+ (Negative) H 10/24/24 19:18 Urine Glucose (UA) 3+ (Negative) H 10/24/24 19:18 Urine Ketones Negative (Negative) 10/24/24 19:18 Urine Blood Negative (Negative) 10/24/24 19:18 Urine Nitrite Negative (Negative) 10/24/24 19:18 Urine Bilirubin Negative (Negative) 10/24/24 19:18 Urine Urobilinogen Negative (Negative) 10/24/24 19:18 Ur Leukocyte Esterase 1+ (Negative) H 10/24/24 19:18 Urine WBC (Auto) 21-50 /hpf (0-5) H 10/24/24 19:18 Urine RBC (Auto) 0-2 /hpf (0-2) 10/24/24 19:18 U Hyaline Cast (Auto) 0-2 /lpf (0-2) 10/24/24 19:18 U Epithel Cells (Auto) 3-5 /hpf (0-2) H 10/24/24 19:18 Urine Bacteria (Auto) 1+ (None Seen) H 10/24/24 19:18 Adenovirus (PCR) Not Detected (NotDetected) 10/24/24 16:57 B. pertussis DNA (PCR) Not Detected (NotDetected) 10/24/24 16:57 B.parapertussis DNA PCR Not Detected (NotDetected) 10/24/24 16:57 C. pneumoniae DNA (PCR) Not Detected (NotDetected) 10/24/24 16:57 Coronavirus OC43 (PCR) Not Detected (NotDetected) 10/24/24 16:57 Coronavirus HKU1 (PCR) Not Detected (NotDetected) 10/24/24 16:57 Coronavirus 229E (PCR) Not Detected (NotDetected) 10/24/24 16:57 SARS-CoV-2 (PCR) Not Detected (NotDetected) 10/24/24 16:57 Coronavirus NL63 (PCR) Not Detected (NotDetected) 10/24/24 16:57 Human Metapneumovir PCR Not Detected (NotDetected) 10/24/24 16:57 Influenza Type A (PCR) Not Detected (NotDetected) 10/24/24 16:57 Influenza Type B (PCR) Not Detected (NotDetected) 10/24/24 16:57 M. pneumoniae (PCR) Not Detected (NotDetected) 10/24/24 16:57 Parainfluenza 1 (PCR) Not Detected (NotDetected) 10/24/24 16:57 Parainfluenza 2 (PCR) Not Detected (NotDetected) 10/24/24 16:57 Parainfluenza 3 (PCR) Not Detected (NotDetected) 10/24/24 16:57 Parainfluenza 4 (PCR) Not Detected (NotDetected) 10/24/24 16:57 RSV (PCR) Not Detected (NotDetected) 10/24/24 16:57 Entero/Rhino (PCR) Not Detected (NotDetected) 10/24/24 16:57 Impressions Chest X-Ray 10/24/24 16:06 EXAM: XR chest 1V not portable CLINICAL HISTORY: COUGH, SOB TECHNIQUE: X-ray images of the chest were obtained in AP projections. COMPARISON: No prior studies are available for comparison. FINDINGS: Pulmonary Parenchyma: Bilateral mild prominent bronchovascular markings may denote mild congestive changes, and correlate clinically. No major collapse or consolidation. Both costophrenic angles appear clear. The left apical region is obscured by the patient's face. Heart and Mediastinum: Heart size is enlarged. No mediastinal widening or masses. No hilar or mediastinal lymphadenopathy. Dual lead pacemaker in place, with prior sternotomy. Bony Thorax: The bony thorax appears intact without fractures or deformities. Degenerative changes in the visualized spine and both acromioclavicular joints Soft Tissues: Soft tissues overlying the chest wall are unremarkable. IMPRESSION: 1. Cardiomegaly. Bilateral mild prominent perihilar bronchovascular markings may denote mild vascular congestive changes, correlate clinically. 2. Obliterated left costophrenic angle, may be a small effusion/thickening. Electronically signed by Vitaly Sykes 10-24-2024 5:[address] 10/24/24 16:35 EXAMINATION: Head CT without CLINICAL HISTORY: Altered mental status PRIORS: 04/25/2023 TECHNIQUE: Contiguous axial images were obtained through the head without the use of intravenous contrast. Sagittal and coronal reformations are supplied. FINDINGS: Mild motion artifact degrades image quality. Appropriate parenchymal volume is noted. Webber-white differentiation is preserved. No edema or midline shift. No intra-axial or extra-axial hemorrhage. Ventricles are normal in size and configuration. Brainstem and cerebellum have a normal appearance. Calvarium unremarkable. Paranasal sinuses and mastoid air cells are well-pneumatized. Globes are intact. No retrobulbar abnormality. IMPRESSION: No CT evidence of an acute intracranial abnormality. Electronically signed by Britni Messina 10-24-2024 5:48 PM Diagnostic Findings EKG as per my interpretation :
[2024-10-24 22:57] LABS: Thyroid Stimulating Hormone 0.651 uIu/ml (0.300-4.500)
[2024-10-24] MEDS ORDERED: GLUCOSE 10 TAB/TUBE PO PRN (23:11)
[2024-10-24] MEDS ORDERED: CARBOHYDRATES FOR HYPOGLYCEMIA PO PRN (23:11)
[2024-10-24] MEDS ORDERED: GLUCOSE 40% GEL 15 GM TUBE PO PRN (23:11)
[2024-10-24] MEDS ORDERED: GLUCAGON FOR INJ 1 MG VIAL SQ PRN (23:11)
[2024-10-24] MEDS ORDERED: DEXTROSE 50% 50 ML SYRINGE IV PRN (23:11)
[2024-10-24] MEDS ORDERED: ACETAMINOPHEN 325 MG TAB PO PRN (23:20)
--- OUTSIDE RECORDS SUMMARY | 2024-10-24 23:36 | External Medical Summary | Summary of Care ---
Author Name Unknown Organization [facility] Address [address] [facility] [facility] [address] Phone [phone] Care Team Providers Care Drafter (Cad) Electronic Name Role Phone Pete Ambriz MD Primary Care Provider [phone] Reason for Visit * Reason Comments Follow Up Pt here today for on e month return visit Encounter Details Date Type Department Care Team (Late st Contact Info) Description 10/17/2024 4:00 PM EST Office Visit [facility] [address] [place] [phone] Pete Ambriz MD [address] [place], [place] [id number] Type 2 diabetes mellitus with stage 3a chronic kidney disease, with long-term current use of insulin ([facility])*; Type 2 diabetes mellitus with peripheral artery disease ([facility]); Type 2 diabetes mellitus with hemoglobin A1c goal of 7.0%-8.0% ([facility]); Hypertensive heart and kidney disease with chronic diastolic congestive heart failure and stage 3a chronic kidney disease ([facility]); Nontoxic multinodular goiter Allergies Active Allergy Reactions Criticality Noted Date Comments Cephalexin Unknown 09/12/2002 Lisinopril 12/07/2018 Cough Oxycodone 12/04/2003 nausea, stomach pains Tetanus Toxoid 01/28/2009 Local reaction, fever documented as of this encounter (statuses as of 10/17/2024) Medications Vitamin D 50 MCG (1999) Oral CapsuleIndication s:Supplement Take 5,000 Units by mouth at bedtime. Active B-12 500 MCG Oral TabletIndications :Supplement Take by mouth 1 Tablet daily . Active Insulin Pen Needle 29G X 12MM (B/D Ultrafine)Indicat ions:Type 2 diabetes mellitus with hemoglobin A1c goal of 7.0%-8.0% ([facility]) Use to inject basaglar once daily. 100 Each 3 023 Active Triamcinolone Acetonide 0.1 % External Cream (Aristocort)Indic ations:Rash and nonspecific skin eruption Apply topically to affected area 2 times a day. To affected area. 15 g 5 024 Active Rosuvastatin Calcium 20 MG Oral Tablet (Crestor)Indicati ons:Dyslipidemia, goal LDL below 70 TAKE ONE TABLET BY MOUTH ONCE DAILY 90 Tablet 3 024 Active Losartan Potassium 100 MG Oral Tablet (Cozaar)Indicatio ns: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),Pulmonary hypertension (HCC) TAKE ONE TABLET BY MOUTH ONCE DAILY 90 Tablet 3 024 Active Metoprolol Tartrate 100 MG Oral Tablet (Lopressor)Indica tions: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) TAKE 1 TABLET BY MOUTH TWICE DAILY 180 Tablet 3 024 Active Acetaminophen ER 650 MG Oral Tablet Extended Release (Tylenol 8 Hour Arthritis Pain) Take 1 Tablet by mouth every 8 hours as needed. Active Joint Health Oral Capsule Take by mouth. Activ e Nitroglycerin 0.4 MG Sublingual Tablet Sublingual (Nitrostat)Indica tions:Aortocorona ry bypass status Place 1 Tablet under the tongue every 5 minutes as needed (up to three tablets). Up to 3 doses in 15 minutes. 12 Tablet 3 024 Active Fluticasone Propionate 50 MCG/ACT Nasal Suspension (Flonase) Administer 2 Sprays into each nostril in the morning. 16 g 024 Active Montelukast Sodium 10 MG Oral Tablet (Singulair) Take 1 Tablet by mouth in the morning. 90 Tablet 3 024 Active Warfarin Sodium 2 MG Oral Tablet (Coumadin)Indicat ions: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, unspecified type (HCC),Anticoagula tion management encounter,Aortoco ronary bypass status,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),senior care current use of anticoagulant therapy TAKE /2 TO 1 TABLET BY MOUTH ONCE DAILY DIRECTED BY [facility] 90 Tablet 3 Active Aspirin 81 MG Oral Capsule Take by mouth every morning. Active Systane Nighttime Ophthalmic Ointment Instill into eye at bedtime. Active DULoxetine HCl 30 MG Oral Capsule Delayed Release Particles (Cymbalta)Indicat ions:Chronic pain syndrome TAKE 2 CAPS BY MOUTH ONCE DAILY IN THE MORNING 60 Capsule 5 Active Benzonatate 100 MG Oral Capsule (Tessalon Perles)Indication s:Bronchitis, complicated TAKE 1 CAPSULE BY MOUTH 3 TIMES DAILY NEEDED FOR COUGH. DO NOT CUT, CRUSH OR CHEW 50 Capsule 1 Active Empagliflozin 25 MG Oral Tablet (Jardiance) Take 1 Tablet by mouth in the morning. 90 Tablet 3 09/03/20 24 11:30 AM EST Active Insulin Glargine Solostar 100 UNIT/ML Subcutaneous Solution Pen-injector (Rivka[place]llauren [place])Indicatio ns:Type 2 diabetes mellitus with hemoglobin A1c goal of 7.0%-8.0% ([facility]) Inject 25 Units under the skin daily. 30 mL 4 Active Additional Information Patient taking differently: 23 UnitsSubcutaneous Daily(Non-Specified), Reported on 10/17/2024 Furosemide 20 MG Oral Tablet (Lasix)Indication s:Heart failure, diastolic, with acute decompensation ([facility]) TAKE 2 TABLETS BY MOUTH MON, WED, MON AND 1 TABLET ALL OTHER DAYS Active Isosorbide Mononitrate ER 30 MG Oral Tablet Extended Release 24 Hour (Imdur)Indication s:Heart failure, diastolic, with acute decompensation ([facility]),ASCVD (arteriosclerotic cardiovascular disease),PAF (paroxysmal atrial fibrillation) ([facility]),SSS (sick sinus syndrome) ([facility]),Cardiac pacemaker in situ Take 1 Tablet by mouth in the morning. 30 Tablet 11 Active Albuterol Sulfate HFA 108 (90 Base) MCG/ACT Inhalation Aerosol Solution Inhale 2 Puffs by mouth every 6 hours as needed for Cough or Wheezing. 18 g 5 Active Repaglinide 2 MG Oral Tablet (Prandin)Indicati ons:Type 2 diabetes mellitus with hemoglobin A1c goal of 7.0%-8.0% (HCC) Take 1 Tablet by mouth in the morning and 1 Tablet at noon and 1 Tablet in the evening. Take before meals. Discontinue prandin 1 mg script please. 90 Tablet 11 Active Albuterol Sulfate HFA 108 (90 Base) MCG/ACT Inhalation Aerosol SolutionIndicatio ns:Bronchitis, complicated INHALE TWO PUFFS BY MOUTH EVERY 6 HOURS NEEDED FOR wheezing OR cough. 8.5 g 1 2023 Disconti nued(Ref ill) Repaglinide 2 MG Oral Tablet (Prandin)Indicati ons:Type 2 diabetes mellitus with hemoglobin A1c goal of 7.0%-8.0% (HCC) Take 1 Tablet by mouth in the morning and 1 Tablet at noon and 1 Tablet in the evening. Take before meals. Discontinue prandin 1 mg script please. 90 Tablet 11 024 2023 Disconti nued(Ref ill) Hospital, Clinic, or Other Facility Administered Medication Ordered Dose Route Frequency Start Date End Date Status potassium chloride ER tab 10 mEqIndications:Acute on chronic diastolic congestive heart failure (HCC) 10 mEq OR Daily(AM) 12/24/2019 Activ e documented as of this encounter (statuses as of 10/17/2024) Active Problems Problem Noted Date Diagnosed Date Nontoxic multinodular goiter 10/17/2024 Patient cannot afford medications 09/09/2024 Chronic rhinitis 04/23/2024 Sebaceous cyst 10/04/2022 Type 2 diabetes mellitus wit h stage 3a chronic kidney disease, with long-term current use of insulin 07/18/2022 Type 2 diabetes mellitus with peripheral artery disease 01/27/2022 Hypertensive heart and kidne y disease with chronic diastolic congestive heart failure and stage 3a chronic kidney disease 01/10/2022 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, with long-term current use of insulin 07/26/2021 Chronic kidney disease, stage 3a 07/05/2021 Overview: Per CKD protocol Age-related osteoporosis wit hout current pathological fracture 12/28/2020 Type 2 diabetes mellitus wit h mild nonproliferative diabetic retinopathy without macular edema, left eye 12/28/2020 Atherosclerosis of [place] co ronary artery of [place] heart without angina pectoris 12/19/2019 Persistent atrial fibrillation 11/28/2019 HTN, goal below 130/80 04/26/2019 Type 2 diabetes mellitus with diabetic neuropath y 02/11/2019 Chronic diarrhea 05/14/2010 Type 2 diabetes mellitus wit h hemoglobin A1c goal of 7.0%-8.0% 01/08/2010 Overview (02/18/2016): ICD-10 update of inactive term DYSLIPIDEMIA, GOAL LDL BELOW 70 10/12/2009 Overview (10/12/2009): Per Lipid Taxonomy. Vitamin D deficiency 12/12/2007 terminal carman current use of anticoagulant therapy 0 05/27/2005 Overview (07/24/2017): ICD-10 update of inactive term Aortocoronary bypass status 10/17/2002 Cardiac pacemaker in situ Overview (04/27/2011): medtronic dual chamber for tachybrady Pulmonary hypertension DISH (diffuse idiopathic skeletal hyperostosis) documented as of this encounter (statuses as of 10/17/2024) Resolved Problems Problem Noted Date Diagnosed Date Resolved Date Traumatic open wound of right lower leg 08/24/2021 07/18/2022 Overview (07/18/2022): Noted healed 09/2021 Wound Center note Other psoriasis 07/26/2021 07/26/2021 Heart failure, diastolic, wi th acute decompensation 12/19/2019 05/24/2024 Type 2 diabetes mellitus wit h proliferative diabetic retinopathy with traction retinal detachment involving the macula, unspecified eye 02/11/2019 02/21/2022 Overview (02/21/2022): Duplicate Statin intolerance 03/17/2017 Acute bronchitis, complicated 07/08/2016 06/04/2020 Overview (06/04/2020): Acute. Viral URI with cough 07/08/2016 020 Bacterial pneumonia 05/18/2016 06/04/20 20 Overview (06/04/2020): Acute. Nausea without vomiting 05/18/201605/23 Hyponatremia 05/18/2016 07/26/2021 Nummular eczema 09/06/2013 07/26/2021 [employer] Other*[id number] 02/03/2012 11/29/2016 Overview (02/03/2012): Study Titile: Genomics Markers for Patients with Cardiovascular Disease Project # [id number] PI: Merary Rivera MD Please call [phone] with study related questions Irritable bowel syndrome 05/14/201001/2021 Type 2 diabetes mellitus wit h hemoglobin A1c goal of less than 7.0% 08/06/2009 01/08/2010 Overview (02/16/2016): Modified per Diabetes protocol #14. ICD-10 update of inactive term ADVANCE DIRECTIVE INFORMATION 09/27/2007 07/26/2021 Overview (03/14/2006): Yes-copy on file Carpal tunnel syndrome 04/14/200404/01 Atherosclerosis of [place] co ronary artery of [place] de[place]ni' heart without angina pectoris 04/14/2004 Overview (01/06/2020): Duplicate. DM type 2, not at goal 04/14/200408/06 Overview (08/06/2009): Modified per Diabetes protocol #14. Dyslipidemia, goal to be determined 04/14/2004 10/12/2009 Overview (10/12/2009): Per Lipid Taxonomy. 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 10/17/2002 01/06/20 Overview (01/06/2020): More specific code in use. 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 09/09/2002 11/28/19 08 Anticoagulation management encounter 09/09/2002 07/26/2021 PURE HYPERCHOLESTEROLEM 03/13/2001 02/03/2008 Lump or mass in breast 01/05/200107/26 DERMATITIS DUE TO PLANT 04/12/2000 02/0 03/2008 Edema 04/12/2000 11/28/2007 Type 2 diabetes mellitus wit h hemoglobin A1c goal of less than 7.0% 11/28/2007 Overview (02/16/2016): ICD-10 update of inactive term NONTOX MULTINODUL GOITER Hx of CABG 06/04/2020 Overview (06/04/2020): Duplicate. Cardiovascular arteriosclerosis 01/30/2019 Odd detrimental health beliefs 07/26/2021 documented as of this encounter (statuses as of 10/17/2024) Immunizations Name Administration Dates Next Due COVID-19 mRNA, LNP-s, No Pre serve, 2-Dose Series (Pfizer) 06/22/2021,05/08/2021 Pneumococcal Conjugate Vacc, 13 Valent (Prevnar) 08/12/2016 Pneumococcal Polysaccharide PPV23 (Pneumovax) ,07/20/2005 Seasonal Influenza Vac., MDV, IM, 0.5 mL (Fluzon e) 08/04/2006 Seasonal Influenza, High Dos e, Trivalent, PF, IM (Fluzone HD) 07/23/2024 Seasonal Influenza, Quadrivalent Hd (Fluzone Hd) 08/30/2023,09/23/2022 Seasonal Influenza, Trivalen t, Adjuvanted, 65+ YRS, PF, (Fluad) 10/01/2019 TD, Preservative Free 01/26/2009 documented as of this encounter Social History Tobacco Use Types Packs/Day Years Used Date Smoking Tobacco: Never Passive Smoke Exposure: Never Smokeless Tobacco: Never Alcohol Use Standard Drinks/Week Comments No 0 (1 standard drink = 0.6 oz pur e alcohol) PHQ-2 Answer Date Recorded PHQ Adult Total Score 0 05/08/2024 Hunger Vital Sign Answer Date Recorded Within the past 12 months, y ou worried that your food would run out before you got the money to buy more. Never true 05/24/20 24 Within the past 12 months, t he food you bought just didn't last and you didn't have money to get more. Never true 05/24/2024 Childcare Answer Date Recorded Do you feel overwhelmed with taking care of a child, family member or friend? No 05/24/2024 Does your family need help f inding childcare? (Household - for ages 0-17 years) Not on file 05/24/2024 Clothing Answer Date Recorded Have you been unable to get clothing when it was really needed? No 05/24/2024 Is your family able to get c lothes or diapers when needed? (Household - for ages 0-17 years) Not on file 05/24/2024 Personal Safety Answer Date Recorded Do you feel unsafe or have concerns for your saf ety? No 05/24/2024 Do you have concerns for you r family's safety? (Household - for ages 0-17 years) Not on file 05/24/2024 Utilities Answer Date Recorded Do you have trouble paying y our heating, water, or electric bill? No 05/24/2024 Is your family able to pay t he heat, water, or electric bill? (Household - for ages 0-17 years) Not on file 05/24/2024 Does your family have access to good internet? (Household - for ages 0-17 years) Not on file 05/24/2024 Employment Status Answer Date Recorded Are you unemployed or without regular income? No 05/24/2024 Does the [facility] have a [facility] source [facility] income? (Household - for ages 0-17 years) Not on file 05/24/2024 Social Connections Answer Date Recorded How often do you feel lonely or isolated from th ose around you? Never 05/24/2024 Financial Resource Strain Answer Date R ecorded Do you have any trouble payi ng for your medications, or do you think you might in the future? No 05/24/2024 Does your family have troubl e paying for medicine? (Household - for ages 0-17 years) Not on file 05/24/2024 Transportation Needs Answer Date Record ed Do you have trouble getting a ride to medical visits or work? (Adult - for ages 18 years and over) Not on file 05/24/2024 Does your family have a hard time getting a ride to doctors visits? (Household - for ages 0-17 years) Not on file 05/24/2024 Has lack of transportation k ept you from medical appointments, meetings, work, or from getting things needed for daily living? Check all that apply. No 05/24/2024 Do you (or your family) have trouble finding or paying for a ride (transportation)? (Household - for ages 0-17 years) Not on file 05/24/2024 Housing Stability Answer Date Recorded Do you currently live in a s helter or have no steady place to sleep at night? No 05/24/2024 Do you think you are at risk of becoming homeless? (Adult - for ages 18 years and over) Not on file 05/24/2024 Does your family worry about paying for your home or becoming homeless? (Household - for ages 0-17 years) Not on file 0 05/24/2024 Are you homeless or worried that you might be in the future? No 05/24/2024 Are you (or your family) stewart eless or worried that you might be in the future? (Household - for ages 0-17 years) Not on file Food Insecurity Answer Date Recorded Do you need food for this week? No 05/24/2024 Are you able to get enough f ood for your family? (Household - for ages 0-17 years) Not on file 05/24/2024 Does your family need food t his week? (Household - for ages 0-17 years) Not on file 05/24/2024 Do you always have enough fo od for your family? (Household - for ages 0-17 years) Not on file 05/24/2024 Comments No Sex and Gender Information Value Date Recorded Sex Assigned at Female 12/02/2019 2:43 PM EST Legal Sex Female 5:16 AM EST Gender Identity Female 12/02/2019 2:43 PM EST Sexual Orientation Straight 12/02/2019 2: 43 PM EST documented as of this encounter Last Filed Vital Signs Vital Sign Reading Time Taken Comments Blood Pressure 122/73 10/17/2024 4:09 PM EST Pulse 70 10/17/2024 4:09 PM EST Temperature 36.6 C (97.8 F) 10/17/2024 4:09 PM ES T Respiratory Rate 18 10/17/2024 4:09 PM EST Oxygen Saturation 98% 10/17/2024 4:09 PM EST Inhaled Oxygen Concentration - - Weight 73.3 kg (161 lb 8 oz) 10/17/2024 4:09 PM EST Height - - Body Mass Index 31.54 07/23/2024 10:28 AM EDT documented in this encounter Progress Notes * Pete Ambriz MD - 10/17/2024 4:16 PM EST Subjective Tootie Almanza is a 84 year old female. Chief Complaint Patient presents with Follow Up Pt here today for one month return visit HPI: Here for f/u on type 2 DM Recent hba1c 7.6 Poor historian , poor diet in general Brought all her meds, reviewed them Checked glucose at home ( declined CGM) - morning glucose is high side often And post prandial glucose is usually high , 300-400s Advised to stop any sweet drinks , increase fiber and protein in diet [facility]TM clinic toda - already increased prandin 2 mg tid Hx of goiter, normal thyroid function f./u Known HTN, CHF, CKD< taking meds, stable PMH: Patient Active Problem List Diagnosis Aortocoronary bypass status terminal carman current use of anticoagulant therapy Vitamin D deficiency DYSLIPIDEMIA, GOAL LDL BELOW 70 Type 2 diabetes mellitus with hemoglobin A1c goal of 7.0%-8.0% (HCC) Chronic diarrhea Cardiac pacemaker in situ Pulmonary hypertension (HCC) DISH (diffuse idiopathic skeletal hyperostosis) Type 2 diabetes mellitus with diabetic neuropathy ([facility]) HTN, goal below 130/80 Persistent atrial fibrillation ([facility]) Atherosclerosis of [place] coronary artery of [place]' heart without angina pectoris Age-related osteoporosis without current pathological fracture Type 2 diabetes mellitus with mild nonproliferative diabetic retinopathy without macular edema, left eye (HCC) Chronic kidney disease, stage 3a (HCC) 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, with long-term current use of insulin (HCC) Hypertensive heart and kidney disease with chronic diastolic congestive heart failure and stage 3a chronic kidney disease (HCC) Type 2 diabetes mellitus with peripheral artery disease (HCC) Type 2 diabetes mellitus with stage 3a chronic kidney disease, with long-term current use of insulin ([facility]) Sebaceous cyst Chronic rhinitis Patient cannot afford medications Nontoxic multinodular goiter Current Outpatient Medications Medication Sig Dispense Refill Vitamin D 50 MCG (1999 [place]) Oral Capsule Take 5,000 Units by mouth at bedtime. B-12 500 MCG Oral Tablet Take by mouth 1 Tablet daily . Insulin Pen Needle 29G X 12MM (B/D Ultrafine) Use to inject basaglar once daily. 100 Each 3 Triamcinolone Acetonide 0.1 % External Cream (Aristocort) Apply topically to affected area 2 times a day. To affected area. 15 g 5 Rosuvastatin Calcium 20 MG Oral Tablet (Crestor) TAKE ONE TABLET BY MOUTH ONCE DAILY 90 Tablet 3 Losartan Potassium 100 MG Oral Tablet (Cozaar) TAKE ONE TABLET BY MOUTH ONCE DAILY 90 Tablet 3 Metoprolol Tartrate 100 MG Oral Tablet (Lopressor) TAKE 1 TABLET BY MOUTH TWICE DAILY 180 Tablet 3 Acetaminophen ER 650 MG Oral Tablet Extended Release (Tylenol 8 Hour Arthritis Pain) Take 1 Tablet by mouth every 8 hours as needed. Joint Health Oral Capsule Take by mouth. Nitroglycerin 0.4 MG Sublingual Tablet Sublingual (Nitrostat) Place 1 Tablet under the tongue every5 minutes as needed (up to three tablets). Up to 3 doses in 15 minutes. 12 Tablet 3 Fluticasone Propionate 50 MCG/ACT Nasal Suspension (Flonase) Administer 2 Sprays into each nostril in the morning. 16 g 5 Montelukast Sodium 10 MG Oral Tablet (Singulair) Take 1 Tablet by mouth in the morning. 90 Tablet 3 Warfarin Sodium 2 MG Oral Tablet (Coumadin) TAKE 1/2 TO 1 TABLET BY M[facility]TH [facility]CE [facility] Tablet 3 Aspirin 81 MG Oral Capsule Take by mouth every morning. Systane Nighttime Ophthalmic Ointment Instill into eye at bedtime. DULoxetine HCl 30 MG Oral Capsule Delayed Release Particles (Cymbalta) TAKE 2 CAPS BY MOUTH ONCE DAILY IN THE MORNING 60 Capsule 5 Benzonatate 100 MG Oral Capsule (Tessalon Perles) TAKE 1 CAPSULE BY MOUTH 3 TIMES DAILY NEEDED FOR COUGH. DO NOT CUT, CRUSH OR CHEW 50 Capsule 1 Empagliflozin 25 MG Oral Tablet (Jardiance) Take 1 Tablet by mouth in the morning. 90 Tablet 3 Insulin Glargine Solostar 100 UNIT/ML Subcutaneous Solution Pen-injector (Basaglar KwikPen) Inject 25 Units under the skin daily. (Patient taking differently: Inject 23 Units under the skin daily.) 30 mL 4 Furosemide 20 MG Oral Tablet (Lasix) TAKE 2 TABLETS BY MOUTH MON, WED, FRI AND 1 TABLET ALL OTHER DAYS Isosorbide Mononitrate ER 30 MG Oral Tablet Extended Release 24 Hour (Imdur) Take 1 Tablet by mouthin the morning. 30 Tablet 11 Albuterol Sulfate HFA 108 (90 Base) MCG/ACT Inhalation Aerosol Solution Inhale 2 Puffs by mouth every 6 hours as needed for Cough or Wheezing. 18 g 5 Repaglinide 2 MG Oral Tablet (Prandin) Take 1 Tablet by mouth in the morning and 1 Tablet at noon and 1 Tablet in the evening. Take before meals. Discontinue prandin 1 mg script please. 90 Tablet 11 Current Facility-Administered Medications Medication Dose Route Frequency Provider Last Rate Last Admin potassium chloride ER tab 10 mEq 10 mEq Oral Daily(AM) Chinmay Scherer DO Past Medical History: Diagnosis Date Cardiac pacemaker in situ 09/22/2007 medtronic dual chamber for tachybrady Cardiovascular arteriosclerosis DISH (diffuse idiopathic skeletal hyperostosis) DM type 2, goal A1C 7-8 HTN, goal below 140/90 Hypertension Benign Hx of CABG Irritable bowel syndrome 05/14/2010 Nausea without vomiting 05/18/2016 Non-toxic multinodular goiter Odd detrimental health beliefs Other psoriasis Psoriasis Pulmonary hypertension (HCC) Traumatic open wound of right lower leg 08/24/2021 Noted healed 09/2021 Wound Center note Past Surgical History: Procedure Laterality Date CABG, ARTERY-VEIN, TWO 08/23/2002 Off-pump CAB x 2 -- Roman COLONOSCOPY, DIAGNOSTIC (RECTUM) 03/18/2010 normal, repeat in 10 years COLONOSCOPY, DIAGNOSTIC (RECTUM) N/A 02/07/2019 poor prep/biopsies show adenomatous polyps/recall 3 years/COLONOSCOPY FLEXIBLE PROXIMAL DIAGNOSTIC performed by Trent Cesar MD at ENDOSCOPY [facility] CORONARY ANGIOGRAPHY W/LEFT HEART CATH 02/03/2012 CORONARY ANGIOGRAPHY W/LEFT HEART CATH performed by LAWRENCE GODINEZ at CARDIAC LABS [facility] EGD, FLEXIBLE, DIAGNOSTIC 02/17/2022 gastritis / [facility]PT [facility] Right 08/31/2022 shoulder abscess drained in office by Dr Channing Cedeno INJECT DX/THER SUBSTANCE INTERLAMINAR LUMBAR/SACRAL W IMAGE GUIDE 01/03/2022 INJECTION SPINE LUMBAR OR SACRAL performed by Abelardo aVldes DO at OR [facility] INSERT/REPLACE PACEMAKER,ATRIAL/VENTRICULAR 10/03/2007 dual pacer medtronic [id number] MISCELLANEOUS ORDER ([facility] ONLY) 3 X D&Cs, 1962, 1970 glenis [facility] MED-BILIARY CCK STIMULATION 05/07/2010 ejection fraction 81% REMOVAL OF RUPTURED APPENDIX 01/1993 Appendectomy, Rupt Appendx+Abscess SACROILIAC JOINT INJECT W/GUIDANCE 11/11/2021 INJECTION SACROILIAC JOINT performed by Abelardo Valdes DO at OR [facility] SHOULDER SUBQ TUMOR REMOVAL, UNDER 3 CM Right 10/04/2022 EXCISION SOFT TISSUE TUMOR SHOULDER SUBCUTANEOUS performed by Channing Cedeno MD at OR [facility] SURGICAL PROCEDURE ONLY Right 10/04/2022 Excision of sebaceous cyst right shoulder TOTAL HYSTERECTOMY 07/1993 PRINCE (Total Abdominal Hysterectomy) Review of patient's allergies indicates: Allergen Reactions Cephalexin Unknown Lisinopril Cough Oxycodone nausea, stomach pains Tetanus Toxoid Local reaction, fever Family History Problem Relation Name Age of Onset Other (macular degen) Mother Heart Disorder Mother Diabetes Aunt (Unspecified) paternal Diabetes Uncle (Unspecified) paternal No Past Hx Son Diabetes Daughter Type I DM Family Status Relation Status Mo (Not Specified) AUNT (Not Specified) UNCLE (Not Specified) Son (Not Specified) Anthony (Not Specified) Social History Socioeconomic History Marital status: Spouse name: Not on file Number of children: Not on file Years of education: Not on file Highest education level: Not on file Occupational History Not on file Tobacco Use Smoking status: Never Passive exposure: Never Smokeless tobacco: Never Vaping Use Vaping status: Never Used Substance and Sexual Activity Alcohol use: No Drug use: No Sexual activity: Yes Partners: Male Other Topics Concern Not on file Social History Narrative Homemaker Social Needs Financial Resource Strain: Low Risk (05/24/2024) Financial Resource Strain Do you have any trouble paying for your medications, or do you think you might in the future? (Adult - for ages 18 years and over): No Does your family have trouble paying for medicine? (Household - for ages 0-17 years): Not on file Food Insecurity: No Food Insecurity (05/24/2024) Food Insecurity Do you need food for this week? (Adult - for ages 18 years and over): No Are you able to get enough food for your family? (Household - for ages 0-17 years): Not on file Does your family need food this week? (Household - for ages 0-17 years): Not on file Do you always have enough food for your family? (Household - for ages 0-17 years): Not on file Transportation Needs: No Transportation Needs (05/24/2024) Transportation Needs Do you have trouble getting a ride to medical visits or work? (Adult - for ages 18 years and over):Not on file Does your family have a hard time getting a ride to doctors visits? (Household - for ages 0-17 years): Not on file Has lack of transportation kept you from medical appointments, meetings, work, or from getting things needed for daily living? Check all that apply. (Adult - for ages 18 years and over): No Do you (or your family) have trouble finding or paying for a ride (transportation)? (Household - for ages 0-17 years): Not on file Social Connections: Socially Integrated (05/24/2024) Social Connections How often do you feel lonely or isolated from those around you? (Adult - for ages 18 years and over): Never Housing Stability: Low Risk (05/24/2024) Housing Stability Do you currently live in a alf or have no steady place to sleep at night? (Adult - for ages 18 years and over): No Do you think you are at risk of becoming homeless? (Adult - for ages 18 years and over): Not on file Does your family worry about paying for your home or becoming homeless? (Household - for ages 0-17 years): Not on file Are you homeless or worried that you might be in the future? (Adult - for ages 18 years and over): No Are you (or your family) homeless or worried that you might be in the future? (Household - for ages0-17 years): Not on file Review of Systems Constitutional: Positive for fatigue. Negative for activity change, appetite change, chills, diaphoresis, fever and unexpected weight change. Respiratory: Negative for cough, chest tightness, shortness of breath and wheezing. Cardiovascular: Negative for chest pain, palpitations and leg swelling. Gastrointestinal: Negative for abdominal distention and abdominal pain. Neurological: Positive for numbness and headaches. Psychiatric/Behavioral: Negative for agitation and behavioral problems. The patient is nervous/anxious. Objective BP 122/73 | Pulse 70 | Temp 97.8 F (36.6 C) (Infrared ) | Resp 18 | Wt 161 lb 8 oz (73.3 kg) | SpO2 98% | BMI 31.54 kg/m | BSA 1.76 m Physical Exam Constitutional: Appearance: Normal appearance. HENT: Head: Normocephalic and atraumatic. Nose: Nose normal. Eyes: Extraocular Movements: Extraocular movements intact. Cardiovascular: Rate and Rhythm: Normal rate. Rhythm irregular. Heart sounds: Murmur heard. Pulmonary: Effort: Pulmonary effort is normal. Neurological: General: No focal deficit present. Mental Status: She is alert and oriented to person, place, and time. Psychiatric: Behavior: Behavior normal. ASSESSMENT/PLAN: Type 2 diabetes mellitus with stage 3a chronic kidney disease, with long-term current use of insulin ([facility]) (Primary) Type 2 diabetes mellitus with peripheral artery disease (HCC) Type 2 diabetes mellitus with hemoglobin A1c goal of 7.0%-8.0% ([facility]) - Repaglinide 2 MG Oral Tablet (Prandin); Take 1 Tablet by mouth in the morning and 1 Tablet at noon and 1 Tablet in the evening. Take before meals. Discontinue prandin 1 mg script please. Hypertensive heart and kidney disease with chronic diastolic congestive heart failure and stage 3a chronic kidney disease ([facility]) Nontoxic multinodular goiter Other orders - Albuterol Sulfate HFA 108 (90 Base) MCG/ACT Inhalation Aerosol Solution; Inhale 2 Puffs by mouth every 6 hours as needed for Cough or Wheezing. Follow Up: Return in about 2 months (around 12/18/2024) for Clinic Visit. | For: Clinic Visit Diet change Emphasized again Med dose change F/u with MT Check glucose Pete Ambriz MD documented in this encounter Nursing Notes * Lorenza Fonseca LPN - 10/17/2024 3:59 PM EST Chief Complaint Patient presents with Follow Up Pt here today for one month return visit documented in this encounter Plan of Treatment Upcoming Encounters Date Type Department Care Team (Late st Contact Info) Description 11/05/2024 1:00 PM EST Anticoagulation Pharmacy, [address] [place] [phone] [facility] [address] [facility] [place] [address] 11/05/2024 1:40 PM EST Office Visit Pharmacy, [address] [place] [phone] Lud[place]ina [facility] [address] [facility] [place] [address] 12/05/2024 10:00 AM EST Cardiac Studies Cardiology, [facility] [address] [facility] [address] [place] [address] [address] [facility] [address] [facility] [address] [place] [address] 12/19/2024 9:00 AM EST Office Visit Family Practice, [place] [facility] [place] [phone] Pete Ambriz MD [address] [place] [address] 12/20/2024 10:30 AM EST Office Visit Cardiology, [facility] [address] [facility] [facility] [address] [place] [address] [place] Momin, PACrystalC [address] [facility] [place] [address] 05/14/2025 10:00 AM EDT Nurse Only Ancillary Department, [address] [place] [phone] Ludivina Nurse [facility] [address] [place] [address] Scheduled Procedures Name Priority Associated Diagnoses Date/Ti me COLONOSCOPY FLEXIBLE PROXIMA L DIAGNOSTIC Recall History of colonic polyps Health Maintenance Due Date Last Done Comments Colonoscopy 02/07/2022 02/07/2019, 01/21, 03/18/2010 COVID-19 Vaccine ( season) 2024 06/22/2021, 05/08/2021 B-12 01/28/2025 01/29/2024, 01/21, 07/29/2022, Additional history exists CKD PHOS USE SMARTSET 09523 01/28/2025 04/0 05/2024, 02/01/2023, 07/29/2022, Additional history exists GFR 03/13/2025 09/13/2024, 08/23, 07/03/2024, Additional history exists HbA1c 03/13/2025 09/13/2024, 0811/2023, 01/29/2024, Additional history exists Diabetic Foot Exam 04/23/2025 04/23/2024, 1 , 07/26/2021, Additional history exists Adult Wellness Visit 05/08/2025 05/08/2024, 05/05/20 23 Depression Screening 05/08/2025 05/08/2024 Albumin/Creatinine Ratio 05/24/2025 024, 07/25/2023, 02/01/2023, Additional history exists CKD HGB USE SMARTSET 49647 09/02/202509/02, 01/29/2024, 01/29/2024, Additional history exists Diabetic Eye Exam 09/17/2025 09/17/2024, , 06/03/2024, Additional history exists DXA Scan 06/04/2026 06/04/2024, 02/20, 03/01/2022, Additional history exists Pneumococcal Vaccine: 50+ Years Completed 05/08/2018, 08/12/2016, 07/20/2005 VITAMIN D LEVEL ONCE IN A LIFETIME-USE SMARTSET# [id number] Completed 07/03/2024, 08/28/2008, 04/07/2008, Additional history exists Influenza Vaccine (FLU shot) Completed 07/23/2024, 08/30/2023, 09/23/2022, Additional history exists HPV (Gardasil) Vaccine Aged Out No lo nger eligible based on patient's age to complete this topic Hepatitis B Vaccine Aged Out No longe r eligible based on patient's age to complete this topic MENINGOCOCCAL (MENACTRA/MENVEO) Aged Out No longer eligible based on patient's age to complete this topic Zoster Vaccines Discontinued documented as of this encounter Medical Devices Not on filedocumented as of this encounter Visit Diagnoses Diagnosis Type 2 diabetes mellitus with stage 3a chronic kidney disease, with long-term current use of insulin (HCC)- Primary Type 2 diabetes mellitus with peripheral artery disease (HCC) Type II or unspecified type diabetes mellitus with peripheral circulatory disorders, not stated as uncontrolled Type 2 diabetes mellitus with hemoglobin A1c goal of 7.0%-8.0% (HCC) Hypertensive heart and kidney disease with chronic diastolic congestive heart failure and stage 3a chronic kidney disease (HCC) Nontoxic multinodular goiter documented in this encounter Advance Directives * No Code Status (Latest Code Status on File) Date Activated Date Inactivated Comments 01/11/2005 2:56 PM 01/11/2005 3:56 PM Care Teams Drafter (Cad) Electronic Relationship Specialty Start Date End Date Pete Ambriz MD PCP - General Internal Medicine 05/08/24 documented as of this encounter"
--- OUTSIDE RECORDS SUMMARY | 2024-10-24 23:36 | External Medical Summary | Summary of Care ---
Author Name Unknown Organization [facility] Address [address] [address] Phone [phone] Care Team Providers Care Manager Rn Case Name Role Phone Pete Ambriz MD Primary Care Provider [phone] Reason for Visit * Reason Onset Date Comments Test Results 10/01/2024 Encounter Details Date Type Department Care Team (Late st Contact Info) Description 10/01/2024 Telephone Cardiology, [facility] [address] [place] [address] [place] Momin PA-C [address] [place] [address] Test Results Allergies Active Allergy Reactions Criticality Noted Date Comments Cephalexin Unknown 09/12/2002 Lisinopril 12/07/2018 Cough Oxycodone 12/04/2003 nausea, stomach pains Tetanus Toxoid 01/28/2009 Local reaction, fever documented as of this encounter (statuses as of 10/09/2024) Medications Vitamin D 50 MCG (1999) Oral CapsuleIndication s:Supplement Take 5,000 Units by mouth at bedtime. Active B-12 500 MCG Oral TabletIndications :Supplement Take by mouth 1 Tablet daily . Active Insulin Pen Needle 29G X 12MM (B/D Ultrafine)Indicat ions:Type 2 diabetes mellitus with hemoglobin A1c goal of 7.0%-8.0% ([facility]) Use to inject basaglar once [...] nostril in the morning. 16 g 5 024 Active Montelukast Sodium 10 MG Oral Tablet (Singulair) Take 1 Tablet by mouth in the morning. 90 Tablet 3 024 Active Warfarin Sodium 2 MG Oral Tablet (Coumadin)Indicat ions: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, unspecified type (HCC),Anticoagula tion management encounter,Aortoco ronary bypass status,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),senior living current use of anticoagulant therapy TAKE 1/2 TO 1 TABLET BY MOUTH ONCE DAILY DIRECTED BY COUMADIN CLINIC 90 Tablet 3 024 Active metFORMIN HCl ER 500 MG Oral Tablet Extended Release 24 Hour (Glucophage XR)Indications:Ty pe 2 diabetes mellitus with hemoglobin A1c goal of 7.0%-8.0% (HCC) TAKE 2 TABLETS BY MOUTH DAILY WITH MEALS Patient takes one once per day Active Repaglinide 1 MG Oral Tablet (Prandin)Indicati ons:Type 2 diabetes mellitus with hemoglobin A1c goal of 7.0%-8.0% (HCC) Take 1 Tablet by mouth in the morning and 1 Tablet at noon and 1 Tablet in the evening. Take before meals. 270 Tablet 1 Active Aspirin 81 MG Oral Capsule Take [...] mouth in the morning. 90 Tablet 3 4 11:30 AM EST Active Insulin Glargine Solostar 100 UNIT/ML Subcutaneous Solution Pen-injector (Basaglar KwikChalo)Indicatio ns:Type 2 diabetes mellitus with hemoglobin A1c goal of 7.0%-8.0% (HCC) Inject 25 Units under the skin daily. 30 mL 4 Active Additional Information Patient taking differently: 23 UnitsSubcutaneous Daily(Non-Specified), Reported on 09/13/2024 Furosemide 20 MG Oral Tablet (Lasix)Indication s:Heart failure, diastolic, with acute decompensation (HCC) TAKE 2 TABLETS BY MOUTH MON, WED, MON AND 1 TABLET ALL OTHER DAYS Active Isosorbide Mononitrate ER 30 MG Oral Tablet Extended Release 24 Hour (Imdur)Indication s:Heart failure, diastolic, with acute decompensation (HCC),ASCVD (arteriosclerotic cardiovascular disease),PAF (paroxysmal atrial fibrillation) (HCC),SSS (sick sinus syndrome) (HCC),Cardiac pacemaker in situ Take 1 Tablet by mouth in the morning. 30 Tablet 11 Active Albuterol Sulfate HFA 108 (90 Base) MCG/ACT Inhalation Aerosol SolutionIndicatio ns:Bronchitis, complicated INHALE TWO PUFFS BY MOUTH EVERY 6 HOURS NEEDED FOR wheezing OR cough. 8.5 g 1 024 Active metFORMIN HCl ER 500 MG Oral Tablet Extended Release 24 Hour (Glucophage XR)Indications:Ty pe 2 diabetes mellitus with hemoglobin A1c goal of 7.0%-8.0% (HCC) TAKE 2 TABLETS BY MOUTH TWICE DAILY WITH MEALS 400 Tablet 1 4 12:22 PM EST 024 Active Hospital, Clinic, or Other Facility Administered Medication Ordered Dose Route Frequency Start Date End Date Status potassium chloride ER tab 10 mEqIndications:Acute on chronic diastolic congestive heart failure (HCC) 10 mEq OR Daily(AM) 12/24/2019 Active perflutren lipid microsphere inj SUSP 1.956 mgIndications:SOB (shortness of breath),ASCVD (arteriosclerotic cardiovascular disease),Heart failure, diastolic, with acute decompensation (HCC) 1.956 mg IV ONCE PRN 10/01/2024 10/01/2024 Ende d documented as of this encounter (statuses as of 10/09/2024) Active Problems Problem Noted Date Diagnosed Date Patient cannot afford medications 09/09/2024 Chronic rhinitis [...] macular edema, left eye 12/28/2020 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 0 05/27/2005 Overview (07/24/2017): ICD-10 update of inactive term Aortocoronary bypass status 10/17/2002 NONTOX MULTINODUL GOITER Cardiac pacemaker in situ Overview (04/27/2011): medtronic dual chamber for tachybrady Pulmonary hypertension DISH (diffuse idiopathic skeletal hyperostosis) documented as of this encounter (statuses as of 10/09/2024) Resolved Problems Problem Noted Date Diagnosed Date [...] Nummular eczema 09/06/2013 07/26/2021 [employer] Other*[id number] 02/03/2012 11/29/2016 Overview (02/03/2012): Study Titile: Genomics Markers for Patients with Cardiovascular Disease Project # [id number] PI: Merary Rivera MD Please call [phone] with study related questions Irritable bowel syndrome 05/14/201001/2021 Type 2 diabetes mellitus wit h hemoglobin A1c goal of less than 7.0% 08/06/2009 01/08/2010 Overview (02/16/2016): Modified per Diabetes protocol #14. 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 DM type 2, not at goal 04/14/200408/06 Overview (08/06/2009): Modified per Diabetes protocol #14. Dyslipidemia, goal to be determined 04/14/2004 10/12/2009 Overview (10/12/2009): Per Lipid Taxonomy. 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 10/17/2002 01/06/20 20 Overview (01/06/2020): More specific code in use. 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 09/09/2002 11/28/19 08 Anticoagulation management encounter 09/09/2002 07/26/2021 PURE HYPERCHOLESTEROLEM 03/13/20010 03/2008 Lump or mass in breast 01/05/200107/26 DERMATITIS DUE TO PLANT 04/12/200003/2008 Edema 04/12/2000 11/28/2007 Type 2 diabetes mellitus wit h hemoglobin A1c goal of less than 7.0% 11/28/2007 Overview (02/16/2016): ICD-10 update of inactive term Hx of CABG 06/04/2020 Overview (06/04/2020): Duplicate. Cardiovascular arteriosclerosis 01/30/2019 Odd detrimental health beliefs 07/26/2021 documented as of this encounter (statuses as of 10/09/2024) Immunizations Name Administration Dates Next Due COVID-19 mRNA, LNP-s, No Pre serve, 2-Dose Series (Pfizer) 06/22/2021,05/08/2021 Diptheria/Tetanus (Adult) 06/10/1997 Pneumococcal Conjugate Vacc, 13 Valent (Prevnar) 08/12/2016 Pneumococcal Polysaccharide PPV23 (Pneumovax) 05/08/2018,07/20/2005 Seasonal Influenza Vac., MDV , IM, 0.5 mL (Fluzone) 08/04/2006,07/29/2005,08/16/2004 Seasonal Influenza, High Dos e, Trivalent, PF, IM (Fluzone HD) 07/23/2024 Seasonal Influenza, Quadriva lent Hd (Fluzone Hd) 08/30/2023,09/23/2022 Seasonal Influenza, Trivalen [...] No 05/24/2024 Does the household have a [facility] source [facility] income? (Household - for ages [...] PM EST documented as of this encounter Miscellaneous Notes * Telephone Encounter - Bryan Gastelum LPN - 10/09/2024 10:12 AM EST Sent patient a letter to follow up on unread [employer] message * Telephone Encounter - Bryan Gastelum LPN - 10/01/2024 4:38 PM EST Sent patient a [employer] message to make aware. ----- Message from [place] Momin sent at 10/01/2024 4:38 PM EST ----- October 01, 2024 TTE Interpretation Summary (as per Dr. Gutiérrez): There was atrial fibrillation during the examination. The left ventricular cavity size is normal. The LV wall thickness is moderately increased (concentric). The septal motion is abnormal consistent with intrventricular conduction delay. The regional left ventricular wall motion is otherwise normal. The qualitative LV ejection fraction is 55-59% (normal). The left ventricular diastolic function is abnormal by 2-D findings. The left atrium is mildly enlarged. Moderate aortic valve sclerosis is present. Mild tricuspid regurgitation is present. There is no evidence of pulmonary hypertension. Compared to prior study of July 04, 2020, there is no significant change ECHO looks okay. Overall, no change compared to to the June 2020 study documented in this encounter Plan of Treatment Upcoming Encounters Date Type Department Care Team (Late st Contact Info) Description 10/17/2024 2:50 PM EST Anticoagulation Pharmacy, [address] [place] [phone] [place] [address] [place] [facility] [place] [address] 10/17/2024 3:00 PM EST Anticoagulation Pharmacy, [place] [facility] [place] [phone] [facility] [address] [address] 10/17/2024 4:00 PM EST Office Visit Family Practice, [address] [place] [phone] Pete Ambriz MD [address] [place] [address] 12/05/2024 10:00 AM EST Cardiac Studies Cardiology, [facility] [address] [facility] [place] [address] [facility] [address] [place] [address] 12/20/2024 10:30 AM EST Office Visit Cardiology, [facility] [address] [facility] [place] [address] [place] Momin PA-C [address] [place] [address] 05/14/2025 10:00 AM EDT Nurse Only [facility] [address] [facility] [phone] Nurse [facility]ina [facility] [address] [facility] [address] Scheduled Procedures Name Priority Associated Diagnoses Date/Ti me COLONOSCOPY FLEXIBLE PROXIMA L DIAGNOSTIC Recall History of colonic polyps Health Maintenance Due Date Last Done Comments Colonoscopy 02/07/2022 02/07/2019, 01/21, 03/18/2010 COVID-19 Vaccine ( season) 2024 06/22/2021, 05/08/2021 B-12 01/28/2025 01/29/2024, 01/21, 07/29/2022, Additional history exists CKD PHOS USE SMARTSET 06013 01/28/2025 04/0 05/2024, 02/01/2023, 07/29/2022, Additional history exists GFR 03/13/2025 09/13/2024, 08/23, 07/03/2024, Additional history exists HbA1c 03/13/2025 09/13/2024, 08/0 11/2023, 01/29/2024, Additional history exists Diabetic Foot Exam 04/23/2025 04/23/2024, 1 , 07/26/2021, Additional history exists Adult Wellness Visit 05/08/2025 05/08/2024, 05/05/20 23 Depression Screening 05/08/2025 05/08/2024 Albumin/Creatinine Ratio 05/24/2025 024, 07/25/2023, 02/01/2023, Additional history exists CKD HGB USE SMARTSET 34128 09/02/202509/02, 01/29/2024, 01/29/2024, Additional history exists Diabetic Eye Exam 09/17/2025 09/17/2024, , 06/03/2024, Additional history exists DXA Scan 06/04/2026 06/04/2024, 02/20, 03/01/2022, Additional history exists Pneumococcal Vaccine: 65+ Years Completed 05/08/2018, 08/12/2016, 07/20/2005 VITAMIN D LEVEL ONCE IN A LIFETIME-USE SMARTSET# 65014 Completed 07/03/2024, 08/28/2008, 04/07/2008, Additional history exists [...] Not on filedocumented as of this encounter Advance Directives * No Code Status (Latest Code Status on File) Date Activated Date Inactivated Comments 01/11/2005 2:56 PM 01/11/2005 3:56 PM Care Teams Manager Rn Case Relationship Specialty Start Date End Date Pete Ambriz MD [address] [facility] [place] [address] PCP - General Internal Medicine 05/08/24 documented as of this encounter
--- OUTSIDE RECORDS SUMMARY | 2024-10-24 23:36 | External Medical Summary | Summary of Care ---
Author Name Unknown Organization [facility] Address [address] [place] [address] Phone [phone] Care Team Providers Care Fire Engineer Name Role Phone Pete Ambriz MD Primary Care Provider [phone] Reason for Visit * Reason Comments Dosage Adjustment In Person (Anticoag Cl inic) Diabetes Follow-Up Encounter Details Date Type Department Care Team (Late st Contact Info) Description 10/17/2024 2:30 PM EST Office Visit Pharmacy, [facility] [address] [place] [id number] [place], [facility] [address] [place] [address] Type 2 diabetes mellitus with hemoglobin A1c goal of 7.0%-8.0% ([facility])* Allergies Active Allergy Reactions Criticality Noted Date Comments Cephalexin Unknown 09/12/2002 Lisinopril 12/07/2018 Cough Oxycodone 12/04/2003 nausea, stomach pains Tetanus Toxoid 01/28/2009 Local reaction, fever documented as of this encounter (statuses as of 10/17/2024) Medications Vitamin D 50 MCG (1999) Oral CapsuleIndicatio ns:Supplement Take 5,000 Units by mouth at bedtime. Active B-12 500 MCG Oral TabletIndication s:Supplement Take by mouth 1 Tablet daily . Active Insulin Pen Needle 29G X 12MM (B/D Ultrafine)Indica tions:Type 2 diabetes mellitus with hemoglobin A1c goal of 7.0%-8.0% ([facility]) Use to inject basaglar once daily. 100 Each 3 2022 Active Triamcinolone Acetonide 0.1 % External Cream (Aristocort)Carol cations:Rash and nonspecific skin eruption Apply topically to affected area 2 times a day. To affected area. 15 g 2023 Active Rosuvastatin Calcium 20 MG Oral Tablet (Crestor)Indicat ions:Dyslipidemi a, goal LDL below 70 TAKE ONE TABLET BY MOUTH ONCE DAILY 90 Tablet 3 2023 Active Losartan Potassium 100 MG Oral Tablet (Cozaar)Indicati ons: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),Pulmonary hypertension (HCC) TAKE ONE TABLET BY MOUTH ONCE DAILY 90 Tablet 2023 Active Metoprolol Tartrate 100 MG Oral Tablet (Lopressor)Indic ations: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) TAKE 1 TABLET BY MOUTH TWICE DAILY 180 Tablet 2023 Active Acetaminophen ER 650 MG Oral Tablet Extended Release (Tylenol 8 Hour Arthritis Pain) Take 1 Tablet by mouth every 8 hours as needed. Active Joint Health Oral Capsule Take by mouth. Ac tive Nitroglycerin 0.4 MG Sublingual Tablet Sublingual (Nitrostat)Indic ations:Aortocoro nary bypass status Place 1 Tablet under the tongue every 5 minutes as needed (up to three tablets). Up to 3 doses in 15 minutes. 12 Tablet 3 2023 Active Fluticasone Propionate 50 MCG/ACT Nasal Suspension (Flonase) Administer 2 Sprays into each nostril in the morning. 16 g 2023 Active Montelukast Sodium 10 MG Oral Tablet (Singulair) Take 1 Tablet by mouth in the morning. 90 Tablet 2023 Active Warfarin Sodium 2 MG Oral Tablet (Coumadin)Indica tions: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, unspecified type (HCC),Anticoagul ation management encounter,Aortoc oronary bypass status,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),half-way current use of anticoagulant therapy TAKE 1/2 TO 1 TABLET BY MOUTH ONCE DAILY DIRECTED BY COUMADIN CLINIC 90 Tablet 2023 Active Aspirin 81 MG Oral Capsule Take by mouth every morning. Active Systane Nighttime Ophthalmic Ointment Instill into eye at bedtime. Active DULoxetine HCl 30 MG Oral Capsule Delayed Release Particles (Cymbalta)Indica tions:Chronic pain syndrome TAKE 2 CAPS BY MOUTH ONCE DAILY IN THE MORNING 60 Capsule 5 2023 Active Benzonatate 100 MG Oral Capsule (Tessalestella Estrella)Indicatio ns:Bronchitis, complicated TAKE 1 CAPSULE BY MOUTH 3 TIMES DAILY NEEDED FOR COUGH. DO NOT CUT, CRUSH OR CHEW 50 Capsule 1 2023 Active Empagliflozin 25 MG Oral Tablet (Jardiance) Take 1 Tablet by mouth in the morning. 90 Tablet 3 09/03/20 24 11:30 AM EST 2023 Active Insulin Glargine Solostar 100 UNIT/ML Subcutaneous Solution Pen-injector (Basagllauren Charles)Indicati ons:Type 2 diabetes mellitus with hemoglobin A1c goal of 7.0%-8.0% (HCC) Inject 25 Units under the skin daily. 30 mL 4 2023 Active Additional Information Patient taking differently: 23 UnitsSubcutaneous Daily(Non-Specified), Reported on 09/13/2024 Furosemide 20 MG Oral Tablet (Lasix)Indicatio ns:Heart failure, diastolic, with acute decompensation (HCC) TAKE 2 TABLETS BY MOUTH MON, WED, MON AND 1 TABLET ALL OTHER DAYS 2023 Active Isosorbide Mononitrate ER 30 MG Oral Tablet Extended Release 24 Hour (Imdur)Indicatio ns:Heart failure, diastolic, with acute decompensation (HCC),ASCVD (arterioscleroti c cardiovascular disease),PAF (paroxysmal atrial fibrillation) ([facility]),SSS (sick sinus syndrome) ([facility]),Cardiac pacemaker in situ Take 1 Tablet by mouth in the morning. 30 Tablet 11 2023 Active Albuterol Sulfate HFA 108 (90 Base) MCG/ACT Inhalation Aerosol SolutionIndicati ons:Bronchitis, complicated INHALE TWO PUFFS BY MOUTH EVERY 6 HOURS NEEDED FOR wheezing OR cough. 8.5 g 1 2023 Active Repaglinide 2 MG Oral Tablet (Prandin)Indicat ions:Type 2 diabetes mellitus with hemoglobin A1c goal of 7.0%-8.0% (HCC) Take 1 Tablet by mouth in the morning and 1 Tablet at noon and 1 Tablet in the evening. Take before meals. Discontinue prandin 1 mg script please. 90 Tablet 11 2023 Active metFORMIN HCl ER 500 MG Oral Tablet Extended Release 24 Hour (Glucophage XR)Indications:T ype 2 diabetes mellitus with hemoglobin A1c goal of 7.0%-8.0% (HCC) TAKE 2 TABLETS BY MOUTH DAILY WITH MEALS Patient takes one once per day 10/17 Discontinued( End of Procedure) Repaglinide 1 MG Oral Tablet (Prandin)Indicat ions:Type 2 diabetes mellitus with hemoglobin A1c goal of 7.0%-8.0% (HCC) Take 1 Tablet by mouth in the morning and 1 Tablet at noon and 1 Tablet in the evening. Take before meals. 270 Tablet 1 10/17 Discontinued metFORMIN HCl ER 500 MG Oral Tablet Extended Release 24 Hour (Glucophage XR)Indications:T ype 2 diabetes mellitus with hemoglobin A1c goal of 7.0%-8.0% (HCC) TAKE 2 TABLETS BY MOUTH TWICE DAILY WITH MEALS 400 Tablet 1 09/26/20 24 12:22 PM EST 10/17 Discontinued( End of Procedure) Hospital, Clinic, or Other Facility Administered Medication [...] macular edema, left eye 12/28/[address] [place] ronary artery of [place] heart without angina pectoris 12/19/2019 Persistent atrial fibrillation 11/28/2019 HTN, goal below 130/80 04/26/2019 Type 2 diabetes mellitus with diabetic neuropath y 02/11/2019 Chronic diarrhea 05/14/2010 Type 2 diabetes mellitus wit h hemoglobin A1c goal of 7.0%-8.0% 01/08/2010 Overview (02/18/2016): ICD-10 update of inactive term DYSLIPIDEMIA, GOAL LDL BELOW 70 10/12/2009 Overview (10/12/2009): Per Lipid Taxonomy. Vitamin D deficiency 12/12/2007 half-way current use of anticoagulant therapy 0 05/27/2005 [...] Nummular eczema 09/06/2013 07/26/2021 [employer] Other*[id number] 02/03/2012 11/29/2016 Overview (02/03/2012): Study Titile: [employer] Markers for Patients with Cardiovascular Disease Project # [id number] PI: Merary Rivera MD Please call [phone] with study related questions Irritable bowel syndrome 05/14/201001/2021 Type 2 diabetes mellitus wit h hemoglobin A1c goal of less than 7.0% 08/06/2009 01/08/2010 Overview (02/16/2016): Modified per Diabetes protocol #14. ICD-10 update of inactive term ADVANCE DIRECTIVE INFORMATION 09/27/2007 07/26/2021 Overview (03/14/2006): Yes-copy on file Carpal tunnel syndrome 04/14/200404/[address] [place] ronary artery of [place] heart without angina pectoris 04/14/2004 Overview (01/06/2020): Duplicate. DM type 2, not at goal 04/14/200408/06 Overview (08/06/2009): Modified per Diabetes protocol #14. Dyslipidemia, goal to be determined 04/14/2004 10/12/2009 Overview (10/12/2009): Per Lipid Taxonomy. 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 10/17/2002 01/06/20 20 Overview (01/06/2020): More specific code in use. 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 09/09/2002 11/28/19 08 Anticoagulation management encounter 09/09/2002 07/26/2021 PURE HYPERCHOLESTEROLEM 03/13/200103/2008 Lump or mass in breast 01/05/200107/26 DERMATITIS [...] No 05/24/2024 Does the household have a re lar source of income? (Household - for ages [...] PM EST documented as of this encounter Progress Notes * Shania Novak, [facility] - 10/17/2024 3:05 PM EST Medication Therapy Disease Management [facility] - Diabetes Management Progress Note Tootie Almanza, identified by name and date of , is a 84 year old female being seen for diabetes management/education. Patient presents for return diabetic visit. DIABETES: Current diabetic medications: Metformin ER 500mg, take 2 tablets daily Jardiance 25mg daily Basaglar 23 units daily Repaglinide 1 mg before every meal. A1C Goal <8% GFR 45 as of 05/24/24 Medication Injection Site: Abdomen Lifestyle: Diet: unchanged Glucose Review/SMBG: Readings obtained from patient documented BG logbook Pre am Post am Pre Lunch Post Lunch Pre pm Post pm HS 97 179 195 120 147 181 93 153 177 257 132 85 206 327 204 78 403 253 402 349 284 277 331 139 173 226 357 143 191 103 345 163 236 126 258 148 312 146 264 189 282 181 237 101 244 160 153 88 284 202 202 102 97 125 142 125 120 88 300 Average 144 #DIV/0! 233 261 211 202 260 Hi 349 0 403 327 277 257 402 Lo 78 0 153 [address] 138.6 0 210.5 #DIV/0! 218.667 #DIV/0! 258.6 Range 271 0 250 132 157 110 270 Hypoglycemia: Does your blood sugar go below 70 mg/dL? No Hyperglycemia symptoms present: none Recent Labs Units 09/13/24 1111 05/24/24 0945 01/29/24 09 HEMOGLOBIN A1C - [facility] % 7.6* 9.0* 8.3* Recent Labs Units 09/13/24 1111 09/02/24 1112 07/03/24 1246 ESTIMATED GLOMERULAR FILTRATION RATE - [facility] mL/min 35* 39* 54* CREATININE - [facility] mg/dL 1.5* 1.4* 1.0 HYPERTENSION: Patient on ACEi/ARB: yes BP Readings from Last 3 Encounters: 09/09/24 122/60 09/02/24 132/74 08/26/24 108/52 Blood pressure at goal: yes HYPERLIPIDEMIA: Recent Labs Units 01/29/24 0924 02/01/23 1039 LDL CHOLESTEROL (DIRECT MEASURE) - [facility] mg/dL 60 63 Does patient have clinical ASCVD? No, is patient LDL less than 70mg/dL? Yes HEALTH MAINTENANCE REVIEW: Health Maintenance Due Topic Date Due Colonoscopy 02/07/2022 COVID-19 Vaccine ( season) 2024 ASSESSMENT & PLAN: ICD-10-CM 1. Type 2 diabetes mellitus with hemoglobin A1c goal of 7.0%-8.0% (HCC) E11.9 Considerations: - renal function - pt declines CGM as of 08/30/23, will only check BG in the AM - chart review shows ozempic intolerance - obtaining Basaglar through [employer] ([facility]: [phone]) --> need to reapply [id number] - cost - not eligible for PACE - obtaining jardiance through [employer] BG Readings - Blood sugars uncontrolled. Rising as day progresses. Best numbers are in the evening. Medications - Reviewed current regimen, patient is adherent to regimen. Will discontinue metformin at this time as patient's renal function has dropped recently + to decrease her pill burden. She recently restarted jardiance. BG rising with meals- will increase prandin. Diet, Exercise, Lifestyle - No significant lifestyle changes since last visit. Discussed with patient. Patient is agreeable to SMBG 1-4 time(s) daily. Patient aware to contact clinic if any hypoglycemia before next visit. MEDICATION CHANGES: yes, see below; preferred pharmacy: [facility] Diabetic Medications: STOP Metformin ER 500mg, take 2 tablets daily Jardiance 25mg daily Basaglar 23 units daily INC Repaglinide 2 mg before every meal. A1C Goal <8% GFR 35 as of 09/13/24 HEALTH MAINTENANCE INTERVENTIONS: Labs: Up to Date Immunizations: Up to Date Foot Exam: Up to Date Eye Exam: Up to Date Annual Wellness Visit: Up to Date FOLLOW UP: Return to clinic in 3 weeks 11/05/2024 I spent a total of 30-39 minutes (exact time 32 mins) on the date of service in preparation, delivery, and documentation of the care provided to Tootie Almanza excluding any time spent in the performance of separately billed services. Shania Novak [facility] Clinical Pharmacist - Wire Frame Maker Medication Therapy Management Clinic 10/17/2024, 3:05 PM documented in this encounter Plan of Treatment Upcoming Encounters Date Type Department Care Team (Late st Contact Info) Description 11/05/2024 1:00 PM EST [address] [place] [phone] [facility] [address] [facility] [place] [address] 11/05/2024 1:40 PM EST Office Visit Pharmacy, [address] [facility] [place] [phone] [address] [facility] [address] [place] [address] [place] [address] 12/05/2024 10:00 AM EST Cardiac Studies [facility] [address] [facility] [address] [facility] [address] [place] [address] 12/20/2024 10:30 AM EST Office Visit Cardiology, [facility] [address] [facility] [place] [address] [place] Momin PA-C [address] [place] [address] 05/14/2025 10:00 AM EDT Nurse Only Ancillary Department, [address] [facility] [place] [phone] [place], Nurse Annual Wellness [address] [facility] [place] [address] Scheduled Procedures Name Priority Associated Diagnoses Date/Ti me COLONOSCOPY FLEXIBLE PROXIMA L DIAGNOSTIC Recall History of colonic polyps Health Maintenance Due Date Last Done Comments Colonoscopy 02/07/2022 02/07/2019, 01/21, 03/18/2010 COVID-19 Vaccine ( season) 2024 06/22/2021, 05/08/2021 B-12 01/28/2025 01/29/2024, 01/21, 07/29/2022, Additional history exists CKD PHOS USE SMARTSET 82491 01/28/20250 05/2024, 02/01/2023, 07/29/2022, Additional history exists GFR 03/13/2025 09/13/2024, 08/23, 07/03/2024, Additional history exists HbA1c 03/13/2025 09/13/2024, 0811/2023, 01/29/2024, Additional history exists Diabetic Foot Exam 04/23/2025 04/23/2024, 1 , 07/26/2021, Additional history exists Adult Wellness Visit 05/08/2025 05/08/2024, 05/05/20 23 Depression Screening 05/08/2025 05/08/2024 Albumin/Creatinine Ratio 05/24/2025 024, 07/25/2023, 02/01/2023, Additional history exists CKD HGB USE SMARTSET 86025 09/02/202509/02, 01/29/2024, 01/29/2024, Additional history exists Diabetic Eye Exam 09/17/2025 09/17/2024, , 06/03/2024, Additional history exists DXA Scan 06/04/2026 06/04/2024, 02/20, 03/01/2022, Additional history exists Pneumococcal Vaccine: 50+ Years Completed 05/08/2018, 08/12/2016, 07/20/2005 VITAMIN D LEVEL ONCE IN A LIFETIME-USE SMARTSET# [id number] Completed 07/03/2024, 08/28/2008, 04/07/2008, Additional history exists [...] Diagnoses Diagnosis Type 2 diabetes mellitus with hemoglobin A1c goal of 7.0%-8.0% ([facility])- Primary documented in this encounter Advance Directives * No Code Status (Latest Code Status on File) Date Activated Date Inactivated Comments 01/11/2005 2:56 PM 01/11/2005 3:56 PM Care Teams Fire Engineer Relationship Specialty Start Date End Date Pete Ambriz MD PCP - General Internal Medicine 05/08/24 documented as of this encounter
--- OUTSIDE RECORDS SUMMARY | 2024-10-24 23:36 | External Medical Summary | Summary of Care ---
Author Name Unknown Organization [facility] Address [address] [place] [address] Phone [phone] Care Team Providers Care Teacher Of Gifted Students Name Role Phone Pete Ambriz MD Primary Care Provider [phone] Reason for Visit * Reason Comments Dosage Adjustment In Person (Anticoag Cl inic) Encounter Details Date Type Department Care Team (Latest Contact Info) Description 10/17/2024 2:50 PM EST Anticoagulation Pharmacy, [facility] [address] [place] [phone] [facility] [address] [place] [address] Anticoagulation management encounter*; Persistent atrial fibrillation (HCC) Allergies Active Allergy Reactions Criticality Noted Date [...] with hemoglobin A1c goal of 7.0%-8.0% (HCC) Use to inject basaglar once daily. 100 [...] TABLET BY MOUTH ONCE DAILY 90 Tablet 024 Active Metoprolol Tartrate 100 MG Oral [...] tion management encounter,Aortoco ronary bypass status,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),rn long term care current use of anticoagulant therapy TAKE 1/2 TO 1 TABLET BY MOUTH ONCE DAILY DIRECTED BY COUMADIN CLINIC 90 Tablet 024 Active Aspirin 81 MG Oral Capsule Take [...] Solostar 100 UNIT/ML Subcutaneous Solution Pen-injector (Basaglar KwikPen)Indicatio ns:Type 2 diabetes mellitus with hemoglobin A1c [...] (HCC),ASCVD (arteriosclerotic cardiovascular disease),PAF (paroxysmal atrial fibrillation) ([facility]),SSS (sick sinus syndrome) ([facility]),Cardiac pacemaker in situ Take 1 Tablet by mouth in the morning. 30 Tablet 11 Active Albuterol Sulfate HFA 108 (90 Base) MCG/ACT Inhalation Aerosol SolutionIndicatio ns:Bronchitis, complicated INHALE TWO PUFFS BY MOUTH EVERY 6 HOURS NEEDED FOR wheezing OR cough. 8.5 g 1 Active Hospital, Clinic, or Other Facility Administered [...] macular edema, left eye 12/28/2020 Atherosclerosis of [place] co ronary artery of [place] heart without angina pectoris 12/19/2019 Persistent atrial fibrillation 11/28/2019 HTN, goal below 130/80 04/26/2019 Type 2 diabetes mellitus with diabetic neuropath y 02/11/2019 Chronic diarrhea 05/14/2010 Type 2 diabetes mellitus wit h hemoglobin A1c goal of 7.0%-8.0% 01/08/2010 Overview (02/18/2016): ICD-10 update of inactive term DYSLIPIDEMIA, GOAL LDL BELOW 70 10/12/2009 Overview (10/12/2009): Per Lipid Taxonomy. Vitamin D deficiency 12/12/2007 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 0 05/27/2005 [...] Nummular eczema 09/06/2013 07/26/2021 [employer] Other*[id number] 02/03/2012 11/29/2016 Overview (02/03/2012): Study Titile: Genomics Markers for Patients with Cardiovascular Disease Project # [id number] PI: Merary Rivera MD Please call [phone] with study related questions Irritable bowel syndrome 05/14/201001/2021 Type 2 diabetes mellitus wit h hemoglobin A1c goal of less than 7.0% 08/06/2009 01/08/2010 Overview (02/16/2016): Modified per Diabetes protocol #14. ICD-10 update of inactive term ADVANCE DIRECTIVE INFORMATION 09/27/2007 07/26/2021 Overview (03/14/2006): Yes-copy on file Carpal tunnel syndrome 04/14/200404/01 Atherosclerosis of [place] co ronary artery of [place] heart without angina pectoris 04/14/2004 Overview (01/06/2020): [...] mRNA, LNP-s, No Pre serve, 2-Dose Series ([employer]) 06/22/2021,05/08/2021 Pneumococcal Conjugate Vacc, 13 Valent (Prevnar) [...] 05/24/2024 Does the household have a re gular source of income? (Household - for ages [...] of this encounter Progress Notes * Shania Novak RPh - 10/17/2024 2:57 PM EST Images from the original note were not included. Medication Therapy Disease Management - Anticoagulation Patient: Tootie Almanza | : 1940 Subjective Patient-Reported Symptoms: Patient Findings Positives: Change in activity (less lately due to headaches) Negatives: Signs/symptoms of thrombosis, Signs/symptoms of bleeding, Change in health, Change in alcohol use, Upcoming invasive procedure, Missed doses, Extra doses, Change in medications, Change in diet/appetite, Bruising Objective Current Warfarin Dose As of 10/17/2024 Warfarin maintenance plan: 2 mg (2 mg x 1) every Mon; 1 mg (2 mg x 0.5) all other days INR Result As of 10/17/2024 INR goal: 2.0-3.0 INR used for dosin.3 (10/17/2024) Assessment & Plan Warfarin Plan As of 10/17/2024 Full warfarin instructions: 10/17: Hold; Otherwise 2 mg every Mon; 1 mg all other days Next INR check: 11/07/2024 Repeat PT/INR in 3 week(s) Weekly dose: not changed Additional Dosing Information: I spent a total of 10-19 minutes (exact time 10 mins) on the date of service in preparation, delivery, and documentation of the care provided to Tootie Almanza excluding any time spent in the performance of separately billed services or time spent by another provider/QHP. Shania Novak RPh Clinical Pharmacist 10/17/2024, 2:57 PM documented in this encounter Plan of Treatment Upcoming Encounters Date Type Department Care Team (Late st Contact Info) Description 11/05/2024 1:00 PM EST Anticoagulation Pharmacy, [address] [place] [phone] [address] [facility] [address] [facility] [address] 11/05/2024 1:40 PM EST Office Visit Pharmacy, [address] [facility] [place] [phone] [facility] [address] [facility] [address] 12/05/2024 10:00 AM EST Cardiac Studies Cardiology, [facility] [address] [facility] [place] [place] [address] [facility] [place] [address] 12/20/2024 10:30 AM EST Office Visit Cardiology, [facility] [address] [facility] [place], [place] [address] [place] Momin PA-C [address] [facility] [place] [address] 05/14/2025 10:00 AM EDT Nurse Only Ancillary Department, [place] [address] [facility] [place] [phone] Lud[place], Nurse Annual Wellness [address] [facility] [place] [address] Scheduled Procedures Name Priority Associated Diagnoses Date/Ti me COLONOSCOPY FLEXIBLE PROXIMA L DIAGNOSTIC Recall History of colonic polyps Health Maintenance Due Date Last Done Comments Colonoscopy 02/07/2022 02/07/2019, 01/21, 03/18/2010 COVID-19 Vaccine ( season) 2024 06/22/2021, 05/08/2021 B-12 01/28/2025 01/29/2024, 01/21, 07/29/2022, Additional history exists CKD PHOS USE SMARTSET 55949 01/28/2025 04/0 05/2024, 02/01/2023, 07/29/2022, Additional history exists GFR 03/13/2025 09/13/2024, 08/23, 07/03/2024, Additional history exists HbA1c 03/13/2025 09/13/2024, 0811/2023, 01/29/2024, Additional history exists Diabetic Foot Exam 04/23/2025 04/23/2024, 1 , 07/26/2021, Additional history exists Adult Wellness Visit 05/08/2025 05/08/2024, 05/05/20 23 Depression Screening 05/08/2025 05/08/2024 Albumin/Creatinine Ratio 05/24/2025 024, 07/25/2023, 02/01/2023, Additional history exists CKD HGB USE SMARTSET 89778 09/02/202509/02, 01/29/2024, 01/29/2024, Additional history exists Diabetic Eye Exam 09/17/2025 09/17/2024, , 06/03/2024, Additional history exists DXA Scan 06/04/2026 06/04/2024, 02/20, 03/01/2022, Additional history exists Pneumococcal Vaccine: 50+ Years Completed 05/08/2018, 08/12/2016, 07/20/2005 VITAMIN D LEVEL ONCE IN A LIFETIME-USE SMARTSET# [id number] Completed 07/03/2024, 08/28/2008, 04/07/2008, Additional history exists [...] Not on filedocumented as of this encounter Procedures Procedure Name Priority Date/Time Associated Diagnosis Comments INR FINGERSTICK, POINT OF CARE STAT 10/17/2024 3:00 PM EST Persistent atrial fibrillation (HCC) Anticoagulation management encounter documented in this encounter Results * INR FINGERSTICK, POINT OF CARE (10/17/2024 3:00 PM EST) Fingerstick INR 3.3 INR 3:19 PM EST [facility] Blood 10/17/2024 3:00 PM EST 10/17/2024 3:19 PM EST Narrative [facility]- - 10/17/2024 3:19 PM EST Therapeutic ranges for non-operative patients: Prophylaxsis/treatment of DVT: (Range:2.0-3.0) Treatment of pulmonary embolism:(Range:2.0-3.0) Prevention of systemic embolism from: -tissue heart valves -acute myocardial infarction -valvular heart disease -atrial fibrillation (Range: 2.0-3.0) Mechanical prosthetic valves: (Range: 2.5-3.5) Shania Novak [facility] POINT OF CARE TEST DOCKED DEVICE UNSOLICITED RESULTS Final Result [facility] - [address] [place] [address], [facility] documented in this encounter Visit Diagnoses Diagnosis Anticoagulation management encounter- Primary Encounter for therapeutic drug monitoring Persistent atrial fibrillation (HCC) 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 documented in this encounter Advance Directives * No Code Status (Latest Code Status on File) Date Activated Date Inactivated Comments 01/11/2005 2:56 PM 01/11/2005 3:56 PM Care Teams Teacher Of Gifted Students Relationship Specialty Start Date End Date Pete Ambriz MD PCP - General Internal Medicine 05/08/24 documented as of this encounter"
--- OUTSIDE RECORDS SUMMARY | 2024-10-24 23:36 | External Medical Summary ---
Author Name Unknown Address Unknown Organization : Laboratory Report Ordering Provider Test Date Status [place] 10/17/2024 15:00:36 Final Therapeutic ranges for non-o perative patients:
Prophylaxsis/treatment of DVT: (Range:2.0-3.0)
Treatment of pulmonary embolism:(Range:2.0-3.0)
Prevention of systemic embolism from:
-tissue heart valves
-acute myocardial infarction
-valvular heart disease
-atrial fibrillation
(Range: 2.0-3.0)
Mechanical prosthetic valves: (Range: 2.5-3.5) Observation Date Value Abnormality Reference (Units ) Status INR in Capillary blood by Coagulation assay 10/17/2024 15:00:36 3.3 (INR) Final Performing Location
--- OUTSIDE RECORDS SUMMARY | 2024-10-24 23:37 | External Medical Summary | Summary of Care ---
Author Name Unknown Organization [facility] Address [address] [place] [address] Phone [phone] Care Team Providers Care Bushel Girl Name Role Phone Pete Ambriz MD Primary Care Provider [phone] Reason for Visit * Reason Comments eRx-Medication Refill Encounter Details Date Type Department Care Team (Late st Contact Info) Description 09/18/2024 Refill [facility] [address] [place] [phone] Pete Ambriz MD [address] [place] [address] Bronchitis, complicated Allergies Active Allergy Reactions Criticality Noted Date Comments Cephalexin Unknown 09/12/2002 Lisinopril 12/07/2018 Cough Oxycodone 12/04/2003 nausea, stomach pains Tetanus Toxoid 01/28/2009 Local reaction, fever documented as of this encounter (statuses as of 09/19/2024) Medications Vitamin D 50 MCG (1999) Oral CapsuleIndicatio ns:Supplement Take 5,000 Units by mouth at bedtime. Active B-12 500 MCG Oral TabletIndication s:Supplement Take by mouth 1 Tablet daily . Active Insulin Pen Needle 29G X 12MM (B/D Ultrafine)Indica tions:Type 2 diabetes mellitus with hemoglobin A1c goal of 7.0%-8.0% ([facility]) Use to inject basaglar once daily. 100 Each 3 2022 Active Triamcinolone Acetonide 0.1 % External Cream (Aristocort)Carol cations:Rash and nonspecific skin eruption Apply topically to affected area 2 times a day. To affected area. 15 g 5 2023 Active Rosuvastatin Calcium 20 MG Oral Tablet (Crestor)Indicat ions:Dyslipidemi a, goal LDL below 70 TAKE ONE TABLET BY MOUTH ONCE DAILY 90 Tablet 3 2023 Active Losartan Potassium 100 MG Oral Tablet (Cozaar)Indicati ons: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),Pulmonary hypertension (HCC) TAKE ONE TABLET BY MOUTH ONCE DAILY 90 Tablet 3 2023 Active Metoprolol Tartrate 100 MG Oral Tablet (Lopressor)Indic ations: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) TAKE 1 TABLET BY MOUTH TWICE DAILY 180 Tablet 3 2023 Active Acetaminophen ER 650 MG Oral [...] ation management encounter,Aortoc oronary bypass status,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),retirement current use of anticoagulant therapy TAKE 1/2 TO 1 TABLET BY MOUTH ONCE DAILY DIRECTED BY COUMADIN CLINIC 90 Tablet 3 2023 Active metFORMIN HCl ER 500 MG Oral Tablet Extended Release 24 Hour (Glucophage XR)Indications:T ype 2 diabetes mellitus with hemoglobin A1c goal of 7.0%-8.0% (HCC) TAKE 2 TABLETS BY MOUTH DAILY WITH MEALS Patient takes one once per day 2023 Active Repaglinide 1 MG Oral Tablet (Prandin)Indicat ions:Type 2 diabetes mellitus with hemoglobin A1c goal of 7.0%-8.0% (HCC) Take 1 Tablet by mouth in the morning and 1 Tablet at noon and 1 Tablet in the evening. Take before meals. 270 Tablet 1 2023 Active Aspirin 81 MG Oral Capsule Take by mouth every morning. Active Systane Nighttime Ophthalmic Ointment Instill into eye at bedtime. Active DULoxetine HCl 30 MG Oral Capsule Delayed Release Particles (Cymbalta)Indica tions:Chronic pain syndrome TAKE 2 CAPS BY MOUTH ONCE DAILY IN THE MORNING 60 Capsule 5 2023 Active Benzonatate 100 MG Oral Capsule (Tessalon Perles)Indicatio ns:Bronchitis, complicated TAKE 1 CAPSULE BY MOUTH 3 TIMES DAILY NEEDED FOR COUGH. DO NOT CUT, CRUSH OR CHEW 50 Capsule 1 2023 Active Empagliflozin 25 MG Oral Tablet (Jardiance) Take 1 Tablet by mouth in the morning. 90 Tablet 3 09/03/20 24 11:30 AM EST 2023 Active Insulin Glargine Solostar 100 UNIT/ML Subcutaneous Solution Pen-injector (Basaglar Melvin)Indicati ons:Type 2 diabetes mellitus with hemoglobin A1c goal of 7.0%-8.0% (HCC) Inject 25 Units under the skin daily. 30 mL 4 2023 Active Additional Information Patient taking differently: 23 UnitsSubcutaneous Daily(Non-Specified), Reported on 09/13/2024 Furosemide 20 MG Oral Tablet (Lasix)Indicatio ns:Heart failure, diastolic, with acute decompensation (HCC) TAKE 2 TABLETS BY MOUTH MON, WED, FRI AND 1 TABLET ALL OTHER DAYS 2023 Active Isosorbide Mononitrate ER 30 MG Oral Tablet Extended Release 24 Hour (Imdur)Indicatio ns:Heart failure, diastolic, with acute decompensation (HCC),ASCVD (arterioscleroti c cardiovascular disease),PAF (paroxysmal atrial fibrillation) (HCC),SSS (sick sinus syndrome) (HCC),Cardiac pacemaker in situ Take 1 Tablet by mouth in the morning. 30 Tablet 11 2023 Active Albuterol Sulfate HFA 108 (90 Base) MCG/ACT Inhalation Aerosol SolutionIndicati ons:Bronchitis, complicated INHALE TWO PUFFS BY MOUTH EVERY 6 HOURS NEEDED FOR wheezing OR cough. 8.5 g 1 2023 Active Albuterol Sulfate HFA 108 (90 Base) MCG/ACT Inhalation Aerosol SolutionIndicati ons:Bronchitis, complicated INHALE TWO PUFFS BY MOUTH EVERY 6 HOURS NEEDED FOR WHEEZING OR COUGH 8.5 g 1 09/19 Discontinued Hospital, Clinic, or Other Facility Administered Medication Ordered Dose Route Frequency Start Date End Date Status potassium chloride ER tab 10 mEqIndications:Acute on chronic diastolic congestive heart failure (HCC) 10 mEq OR Daily(AM) 12/24/2019 Activ e documented as of this encounter (statuses as of 09/19/2024) Active Problems Problem Noted Date Diagnosed Date [...] macular edema, left eye 12/28/2020 Atherosclerosis of [place] co ronary artery of [place] heart without angina pectoris 12/19/2019 Persistent atrial fibrillation 11/28/2019 HTN, goal below 130/80 04/26/2019 Type 2 diabetes mellitus with diabetic neuropath y 02/11/2019 Chronic diarrhea 05/14/2010 Type 2 diabetes mellitus wit h hemoglobin A1c goal of 7.0%-8.0% 01/08/2010 Overview (02/18/2016): ICD-10 update of inactive term DYSLIPIDEMIA, GOAL LDL BELOW 70 10/12/2009 Overview (10/12/2009): Per Lipid Taxonomy. Vitamin D deficiency 12/12/2007 retirement current use of anticoagulant therapy 0 05/27/2005 Overview (07/24/2017): ICD-10 update of inactive term Aortocoronary bypass status 10/17/2002 NONTOX MULTINODUL GOITER Cardiac pacemaker in situ Overview (04/27/2011): medtronic dual chamber for tachybrady Pulmonary hypertension DISH (diffuse idiopathic skeletal hyperostosis) documented as of this encounter (statuses as of 09/19/2024) Resolved Problems Problem Noted Date Diagnosed Date [...] Nummular eczema 09/06/2013 07/26/2021 [employer] Other*[id number] 02/03/2012 11/29/2016 Overview (02/03/2012): Study Titile: [employer]omics Markers for Patients with Cardiovascular Disease Project # [id number] PI: Merary Rivera MD Please call [phone] with study related questions Irritable bowel syndrome 05/14/201001/2021 Type 2 diabetes mellitus wit h hemoglobin A1c goal of less than 7.0% 08/06/2009 01/08/2010 Overview (02/16/2016): Modified per Diabetes protocol #14. ICD-10 update of inactive term ADVANCE DIRECTIVE INFORMATION 09/27/2007 07/26/2021 Overview (03/14/2006): Yes-copy on file Carpal tunnel syndrome 04/14/200404/01 Atherosclerosis of [place] co ronary artery of [place] heart without angina pectoris 04/14/2004 Overview (01/06/2020): Duplicate. DM type 2, not at goal 04/14/200408/06 Overview (08/06/2009): Modified per Diabetes protocol #14. Dyslipidemia, goal to be determined 04/14/2004 10/12/2009 Overview (10/12/2009): Per Lipid Taxonomy. 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 10/17/2002 01/06/20 20 Overview (01/06/2020): More specific code in use. 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 09/09/2002 11/28/19 08 Anticoagulation management encounter 09/09/2002 07/26/2021 PURE HYPERCHOLESTEROLEM 03/13/2001 02/0 03/2008 Lump or mass in breast 01/05/200107/26 DERMATITIS DUE TO PLANT 04/12/2000 02/0 03/2008 Edema 04/12/2000 11/28/2007 Type 2 diabetes mellitus wit h hemoglobin A1c goal of less than 7.0% 11/28/2007 Overview (02/16/2016): ICD-10 update of inactive term Hx of CABG 06/04/2020 Overview (06/04/2020): Duplicate. Cardiovascular arteriosclerosis 01/30/2019 Odd detrimental health beliefs 07/26/2021 documented as of this encounter (statuses as of 09/19/2024) Immunizations Name Administration Dates Next Due COVID-19 [...] encounter Miscellaneous Notes * Telephone Encounter - Lucita San RPh - 09/19/2024 4:51 AM ESTSigned Prescriptions: Disp Refills Albuterol Sulfate HFA 108 (90 Base) MCG/AC*8.5 g 1 Sig: INHALE TWO PUFFS BY MOUTH EVERY 6 HOURS NEEDED FOR wheezing OR cough.Authorizing Provider: Devika AMBRIZ User: LUCITA SAN documented in this encounter Plan of Treatment Upcoming Encounters Date Type Department Care Team (Late st Contact Info) Description 10/01/2024 10:00 AM EST Office Visit Pharmacy, [address] [place] [phone] [facility] [address] [facility], [place] [address] 10/01/2024 10:30 AM EST [facility]tico[facility], [place] [facility] [address] [facility] [phone] [facility] [address] [facility], [place] [address] 10/01/2024 2:00 PM EST Cardiac Studies Cardiac Studies, [facility] [address] [facility] [place] [address] 10/17/2024 4:00 PM EST Office Visit [facility], [facility] [address] [facility] [phone] Pete Ambriz MD [address] [facility] [address] 12/05/2024 10:00 AM EST Cardiac Studies Cardiology, [facility] [address] [facility] [place], [place] [address] [place], [facility] [address] [facility] [place] [address] 12/20/2024 10:30 AM EST Office Visit Cardiology, [facility] [address] [facility] [place] [address] [place] Momin, [facility] [address] [facility] [place] [address] 05/14/2025 10:00 AM EDT Nurse Only Ancillary Department, [place] [address] [facility] [phone] [place], Nurse [facility] [address] [facility] [place] [address] Scheduled Procedures Name Priority Associated Diagnoses Date/Ti me COLONOSCOPY FLEXIBLE PROXIMA L DIAGNOSTIC Recall History of colonic polyps Health Maintenance Due Date Last Done Comments Colonoscopy 02/07/2022 02/07/2019, 01/21, 03/18/2010 COVID-19 Vaccine ( season) 2024 06/22/2021, 05/08/2021 B-12 01/28/2025 01/29/2024, 01/21, 07/29/2022, Additional history exists CKD PHOS USE SMARTSET 83754 01/28/2025 2024, 02/01/2023, 07/29/2022, Additional history exists GFR 03/13/2025 09/13/2024, 08/23, 07/03/2024, Additional history exists HbA1c 03/13/2025 09/13/2024, 0811/2023, 01/29/2024, Additional history exists Diabetic Foot Exam 04/23/2025 04/23/2024, 1 , 07/26/2021, Additional history exists Adult Wellness Visit 05/08/2025 05/08/2024, 05/05/20 23 Depression Screening 05/08/2025 05/08/2024 Albumin/Creatinine Ratio 05/24/2025 08 024, 07/25/2023, 02/01/2023, Additional history exists Diabetic Eye Exam 06/17/2025 06/17/2024, , 12/01/2023, Additional history exists CKD HGB USE SMARTSET 17616 09/02/202509/02, 01/29/2024, 01/29/2024, Additional history exists DXA Scan 06/04/2026 06/04/2024, 02/20, 03/01/2022, Additional history exists Pneumococcal Vaccine: 65+ Years Completed 05/08/2018, 08/12/2016, 07/20/2005 VITAMIN D LEVEL ONCE IN A LIFETIME-USE SMARTSET# [id number] Completed 07/03/2024, 08/28/2008, 04/07/2008, Additional history exists [...] as of this encounter Visit Diagnoses Diagnosis Bronchitis, complicated Bronchitis, not specified as acute or chronic documented in this encounter Advance Directives * No Code Status (Latest Code Status on File) Date Activated Date Inactivated Comments 01/11/2005 2:56 PM 01/11/2005 3:56 PM Care Teams Bushel Girl Relationship Specialty Start Date End Date Pete Ambriz MD [address] [place] [address] PCP - General Internal Medicine 05/08/24 documented as of this encounter
--- OUTSIDE RECORDS SUMMARY | 2024-10-24 23:37 | External Medical Summary | Summary of Care ---
Author Name Unknown Organization [facility] Address [address] [place] [address] Phone [phone] Care Team Providers Care Day Habilitation Supervisor Name Role Phone Pete Ambriz MD Primary Care Provider [phone] Reason for Visit * Reason Onset Date Comments Test Results 09/09/2024 Encounter Details Date Type Department Care Team (Late st Contact Info) Description 09/09/2024 Telephone Cardiology, [facility] [address] [place] [address] Dayton Momin PA-C [address] [place] [address] Test Results Allergies Active Allergy Reactions Criticality Noted Date Comments Cephalexin Unknown 09/12/2002 Lisinopril 12/07/2018 Cough Oxycodone 12/04/2003 nausea, stomach pains Tetanus Toxoid 01/28/2009 Local reaction, fever documented as of this encounter (statuses as of 09/13/2024) Medications Vitamin D 50 MCG (1999) Oral CapsuleIndication s:Supplement Take 5,000 Units by mouth at bedtime. Active B-12 500 MCG Oral TabletIndications :Supplement Take by mouth 1 Tablet daily . Active Insulin Pen Needle 29G X 12MM (B/D Ultrafine)Indicat ions:Type 2 diabetes mellitus with hemoglobin A1c goal of 7.0%-8.0% ([facility]) Use to inject basaglar once daily. 100 [...] tion management encounter,Aortoco ronary bypass status,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),[facility] current use of anticoagulant therapy TAKE 1/2 [...] CRUSH OR CHEW 50 Capsule 1 Active Albuterol Sulfate HFA 108 (90 Base) MCG/ACT Inhalation Aerosol SolutionIndicatio ns:Bronchitis, complicated INHALE TWO PUFFS BY MOUTH EVERY 6 HOURS NEEDED FOR WHEEZING OR COUGH 8.5 g 1 Active Furosemide 20 MG Oral Tablet (Lasix)Indication s:Heart failure, diastolic, with acute decompensation (HCC) Take 2 Tablets by mouth in the morning. 180 Tablet 3 Active Empagliflozin 25 MG Oral Tablet (Jardiance) Take 1 Tablet by mouth in the morning. 90 Tablet 3 09/03/20 24 11:30 AM EST Active Insulin Glargine Solostar 100 UNIT/ML Subcutaneous Solution Pen-injector (Patrick Charles)Indicatio ns:Type 2 diabetes mellitus with hemoglobin A1c goal of 7.0%-8.0% (HCC) Inject 25 Units under the skin daily. 30 mL 4 Active Additional Information Patient taking differently: 23 UnitsSubcutaneous Daily(Non-Specified), Reported on 09/13/2024 Potassium Gluconate 595 (99 K) MG Oral Tablet Take by mouth daily. 2023 Disconti nued(Pat ient preferen ce/disco ntinuati on) Vitamin E 180 MG (400 UNIT) Oral Capsule Take 1 Capsule by mouth in the morning. Pt unsure of dose/strength. 2023 Stephanie vang(Salena renteria ce/francesca mc on) Hospital, Clinic, or Other Facility Administered Medication Ordered Dose Route Frequency Start Date End Date Status potassium chloride ER tab 10 mEqIndications:Acute on chronic diastolic congestive heart failure (HCC) 10 mEq OR Daily(AM) 12/24/2019 Activ e documented as of this encounter (statuses as of 09/13/2024) Active Problems Problem Noted Date Diagnosed Date [...] macular edema, left eye 12/28/2020 Atherosclerosis of [place] co ronary artery of [place] heart without angina pectoris 12/19/2019 Persistent atrial fibrillation 11/28/2019 HTN, goal below 130/80 04/26/2019 Type 2 diabetes mellitus with diabetic neuropath y 02/11/2019 Chronic diarrhea 05/14/2010 Type 2 diabetes mellitus wit h hemoglobin A1c goal of 7.0%-8.0% 01/08/2010 Overview (02/18/2016): ICD-10 update of inactive term DYSLIPIDEMIA, GOAL LDL BELOW 70 10/12/2009 Overview (10/12/2009): Per Lipid Taxonomy. Vitamin D deficiency 12/12/2007 [facility] current use of anticoagulant therapy 0 05/27/2005 Overview (07/24/2017): ICD-10 update of inactive term Aortocoronary bypass status 10/17/2002 NONTOX MULTINODUL GOITER Cardiac pacemaker in situ Overview (04/27/2011): medtronic dual chamber for tachybrady Pulmonary hypertension DISH (diffuse idiopathic skeletal hyperostosis) documented as of this encounter (statuses as of 09/13/2024) Resolved Problems Problem Noted Date Diagnosed Date [...] Nummular eczema 09/06/2013 07/26/2021 [employer] Other*[id number] 02/03/2012 11/29/2016 Overview (02/03/2012): Study Titile: Genomics Markers for Patients with Cardiovascular Disease Project # [id number] PI: Merary Rivera MD Please call [phone] with study related questions Irritable bowel syndrome 05/14/201001/2021 Type 2 diabetes mellitus wit h hemoglobin A1c goal of less than 7.0% 08/06/2009 01/08/2010 Overview (02/16/2016): Modified per Diabetes protocol #14. ICD-10 update of inactive term ADVANCE DIRECTIVE INFORMATION 09/27/2007 07/26/2021 Overview (03/14/2006): Yes-copy on file Carpal tunnel syndrome 04/14/200404/01 Atherosclerosis of [place] co ronary artery of [place] heart without angina pectoris 04/14/2004 Overview (01/06/2020): [...] in breast 01/05/200107/26 DERMATITIS DUE TO PLANT 04/12/20000 03/2008 Edema 04/12/2000 11/28/2007 Type 2 diabetes mellitus wit h hemoglobin A1c goal of less than 7.0% 11/28/2007 Overview (02/16/2016): ICD-10 update of inactive term Hx of CABG 06/04/2020 Overview (06/04/2020): Duplicate. Cardiovascular arteriosclerosis 01/30/2019 Odd detrimental health beliefs 07/26/2021 documented as of this encounter (statuses as of 09/13/2024) Immunizations Name Administration Dates Next Due COVID-19 [...] Telephone Encounter - Bryan Gastelum LPN - 09/13/2024 12:06 PM EST Called to follow up on unread [employer] message. CMP repeated today. * Telephone Encounter - Bryan Gastelum LPN - 09/09/2024 10:05 AM EST Sent patient a [employer] message to make aware. Lab ordered. ----- Message from Dayton Momin sent at 09/06/2024 6:08 PM EST ----- Repeat CMP in 2 weeks documented in this encounter Plan of Treatment Upcoming Encounters Date Type Department Care Team (Late st Contact Info) Description 10/01/2024 10:00 AM EST [facility] [place] [address] [facility] [phone] [facility] [address] [facility], [place] [address] 10/01/2024 10:30 AM EST Anticoagulation Pharmacy, [place] [address] [facility], [place] [address] Ludivina [facility] [address] [facility], [place] [address] 10/01/2024 2:00 PM EST Cardiac Studies Card[facility] Studies, [facility] [address] [facility] [address] 10/17/2024 4:00 PM EST Office [address], [address] [phone] Pete Ambriz MD [address] [facility] [address] 12/05/2024 10:00 AM EST Cardiac Studies Cardiology, [facility] [address] [facility] [place] [address] [facility] 132 [facility] [place] [address] 12/20/2024 10:30 AM EST Office Visit Cardiology, [facility] [address] [facility] [place] [address] [place] Momin PA-C [address] [facility] [place], [place] [address] 05/14/2025 10:00 AM EDT Nurse Only [facility] [address] [facility] [phone] Nurse Ludivina [facility] [address] [facility] [address] Pending Results Name Type Priority Associated Diagnoses Date /Time COMPREHENSIVE METABOLIC PANEL Lab Routine SOB (shortness of breath) 09/13/2024 11:11 AM EST Scheduled Orders Name Type Priority Associated Diagnoses Orde r Schedule COMPREHENSIVE METABOLIC PANEL Lab Routine SOB (shortness of breath) Expected: 09/23/2024 (Approximate), Expires: 09/09/2025 Scheduled Procedures Name Priority Associated Diagnoses Date/Ti me COLONOSCOPY FLEXIBLE PROXIMA L DIAGNOSTIC Recall History of colonic polyps Health Maintenance Due Date Last Done Comments Colonoscopy 02/07/2022 02/07/2019, 01/21, 03/18/2010 COVID-19 Vaccine ( season) 2024 06/22/2021, 05/08/2021 HbA1c 11/24/2024 05/24/2024, 040 05/2024, 07/25/2023, Additional history exists B-12 01/28/2025 01/29/2024, 01/21, 07/29/2022, Additional history exists CKD PHOS USE SMARTSET 83963 01/28/2025 04/0 05/2024, 02/01/2023, 07/29/2022, Additional history exists GFR 03/02/2025 09/02/2024, 06/23, 05/24/2024, Additional history exists Diabetic Foot Exam 04/23/2025 04/23/2024, 1 , 07/26/2021, Additional history exists Adult Wellness Visit 05/08/2025 05/08/2024, 05/05/20 23 Depression Screening 05/08/2025 05/08/2024 Albumin/Creatinine Ratio 05/24/2025 082 024, 07/25/2023, 02/01/2023, Additional history exists Diabetic Eye Exam 06/17/2025 06/17/2024, , 12/01/2023, Additional history exists CKD HGB USE SMARTSET 81190 09/02/202509/02, 01/29/2024, 01/29/2024, Additional history exists DXA Scan 06/04/2026 06/04/2024, 02/20, 03/01/2022, Additional history exists Pneumococcal Vaccine: 65+ Years Completed 05/08/2018, 08/12/2016, 07/20/2005 VITAMIN D LEVEL ONCE IN A LIFETIME-USE SMARTSET# [id number] Completed 07/03/2024, 08/28/2008, 04/07/2008, Additional history exists [...] as of this encounter Visit Diagnoses Diagnosis SOB (shortness of breath)- Primary Shortness of breath documented in this encounter Advance Directives * No Code Status (Latest Code Status on File) Date Activated Date Inactivated Comments 01/11/2005 2:56 PM 01/11/2005 3:56 PM Care Teams Day Habilitation Supervisor Relationship Specialty Start Date End Date Pete Ambriz MD [address] [place] [address] PCP - General Internal Medicine 05/08/24 documented as of this encounter
--- OUTSIDE RECORDS SUMMARY | 2024-10-24 23:37 | External Medical Summary | Summary of Care ---
Author Name Unknown Organization [facility] Address [address] [facility] [address] Phone [phone] Care Team Providers Care Grout Machine Tender Name Role Phone Pete Ambriz MD Primary Care Provider [phone] Reason for Visit * Reason Onset Date Comments Test Results 10/01/2024 Encounter Details Date Type Department Care Team (Late st Contact Info) Description 10/01/2024 Telephone Cardiology, [facility] [address] [place] [address] Dayton Momin PA-C [address] [place] [address] Test Results Allergies Active Allergy Reactions Criticality Noted Date Comments Cephalexin Unknown 09/12/2002 Lisinopril 12/07/2018 Cough Oxycodone 12/04/2003 nausea, stomach pains Tetanus Toxoid 01/28/2009 Local reaction, fever documented as of this encounter (statuses as of 10/01/2024) Medications Vitamin D 50 MCG (1999) Oral CapsuleIndication s:Supplement Take 5,000 Units by mouth at bedtime. Active B-12 500 MCG Oral TabletIndications :Supplement Take by mouth 1 Tablet daily . Active Insulin Pen Needle 29G X 12MM (B/D Ultrafine)Indicat ions:Type 2 diabetes mellitus with hemoglobin A1c goal of 7.0%-8.0% ([facility]) Use to inject basaglar once daily. 100 [...] tion management encounter,Aortoco ronary bypass status,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),custodial current use of anticoagulant therapy TAKE 1/2 [...] as of this encounter (statuses as of 10/01/2024) Active Problems Problem Noted Date Diagnosed Date [...] macular edema, left eye 12/28/2020 Atherosclerosis of [place] co ronary artery of [place] heart without angina pectoris 12/19/2019 Persistent atrial fibrillation 11/28/2019 HTN, goal below 130/80 04/26/2019 Type 2 diabetes mellitus with diabetic neuropath y 02/11/2019 Chronic diarrhea 05/14/2010 Type 2 diabetes mellitus wit h hemoglobin A1c goal of 7.0%-8.0% 01/08/2010 Overview (02/18/2016): ICD-10 update of inactive term DYSLIPIDEMIA, GOAL LDL BELOW 70 10/12/2009 Overview (10/12/2009): Per Lipid Taxonomy. Vitamin D deficiency 12/12/2007 [employer] current use of anticoagulant therapy 0 05/27/2005 Overview (07/24/2017): ICD-10 update of inactive term Aortocoronary bypass status 10/17/2002 NONTOX MULTINODUL GOITER Cardiac pacemaker in situ Overview (04/27/2011): medtronic dual chamber for tachybrady Pulmonary hypertension DISH (diffuse idiopathic skeletal hyperostosis) documented as of this encounter (statuses as of 10/01/2024) Resolved Problems Problem Noted Date Diagnosed Date [...] Nummular eczema 09/06/2013 07/26/2021 [employer] Other*[id number] 02/03/2012 11/29/2016 Overview (02/03/2012): Study Titile: [employer] Markers for Patients with Cardiovascular Disease Project # [id number] PI: Merary Rivera MD Please call [phone] with study related questions Irritable bowel syndrome 05/14/201001/2021 Type 2 diabetes mellitus wit h hemoglobin A1c goal of less than 7.0% 08/06/2009 01/08/2010 Overview (02/16/2016): Modified per Diabetes protocol #14. ICD-10 update of inactive term ADVANCE DIRECTIVE INFORMATION 09/27/2007 07/26/2021 Overview (03/14/2006): Yes-copy on file Carpal tunnel syndrome 04/14/200404/01 Atherosclerosis of [place] co ronary artery of [place] heart without angina pectoris 04/14/2004 Overview (01/06/2020): [...] as of this encounter (statuses as of 10/01/2024) Immunizations Name Administration Dates Next Due COVID-19 [...] 10/01/2024 4:38 PM EST Sent patient a [employer] message to make aware. ----- Message from [...] Description 10/17/2024 2:50 PM EST Anticoagulation Pharmacy, [place] [address] [phone] [facility] [address] [place] [address] 10/17/2024 3:00 PM EST [facility] [phone] [facility] [address] [place] [address] 10/17/2024 4:00 PM EST Office [facility], [address] [phone] Pete Ambriz MD [address] [facility] [address] 12/05/2024 10:00 AM EST Cardiac Studies Cardiology, [facility] [address] [facility] [place] [address] [facility] [address] [facility] [place] [address] 12/20/2024 10:30 AM EST Office Visit Cardiology, [facility] [address] [place] [address] Dayton Momin PA-C [address] [place] [address] 05/14/2025 10:00 AM EDT Nurse Only Ancillary Department, [place] [place] [address] [place] [phone] Lud[place], Nurse [facility] [address] [place] [address] Scheduled Procedures Name Priority Associated Diagnoses Date/Ti me COLONOSCOPY FLEXIBLE PROXIMA L DIAGNOSTIC Recall History of colonic polyps Health Maintenance Due Date Last Done Comments Colonoscopy 02/07/2022 02/07/2019, 01/21, 03/18/2010 COVID-19 Vaccine ( season) 2024 06/22/2021, 05/08/2021 B-12 01/28/2025 01/29/2024, 01/21, 07/29/2022, Additional history exists CKD PHOS USE SMARTSET 97624 01/28/2025 2024, 02/01/2023, 07/29/2022, Additional history exists GFR 03/13/2025 09/13/2024, 08/23, 07/03/2024, Additional history exists HbA1c 03/13/2025 09/13/2024, 08/0 11/2023, 01/29/2024, Additional history exists Diabetic Foot Exam 04/23/2025 04/23/2024, 1 , 07/26/2021, Additional history exists Adult Wellness Visit 05/08/2025 05/08/2024, 05/05/20 23 Depression Screening 05/08/2025 05/08/2024 Albumin/Creatinine Ratio 05/24/2025 08/2 024, 07/25/2023, 02/01/2023, Additional history exists CKD HGB USE SMARTSET 55902 09/02/202509/02, 01/29/2024, 01/29/2024, Additional history exists Diabetic Eye Exam 09/17/2025 09/17/2024, , 06/03/2024, Additional history exists DXA Scan 06/04/2026 06/04/2024, 02/20, 03/01/2022, Additional history exists Pneumococcal Vaccine: 65+ Years Completed 05/08/2018, 08/12/2016, 07/20/2005 VITAMIN D LEVEL ONCE IN A LIFETIME-USE SMARTSET# 26015 Completed 07/03/2024, 08/28/2008, 04/07/2008, Additional history exists [...] 2:56 PM 01/11/2005 3:56 PM Care Teams Grout Machine Tender Relationship Specialty Start Date End Date Pete Ambriz MD [address] [place] [address] PCP - General Internal Medicine 05/08/24 documented as of this encounter
--- OUTSIDE RECORDS SUMMARY | 2024-10-24 23:37 | External Medical Summary | Summary of Care ---
Author Name Unknown Organization [facility] Address [address] [place] [address] Phone [phone] Care Team Providers Care Grill Associate Name Role Phone Pete Ambriz MD Primary Care Provider [phone] Reason for Visit * Reason Onset Date Comments Test Results 09/09/2024 Encounter Details Date Type Department Care Team (Late st Contact Info) Description 09/09/2024 Telephone Cardiology, [facility] [address] [place] [address] Dayton Momin PA-C [address] [place] [address] Test Results Allergies Active Allergy Reactions Criticality [...] of dose/strength. 2023 Stephanie vang(Salena renteria ce/francesca cm on) Hospital, Clinic, or Other Facility Administered [...] macular edema, left eye 12/28/2020 Atherosclerosis of [place] co ronary artery of [place] heart without angina pectoris 12/19/2019 Persistent atrial fibrillation 11/28/2019 HTN, goal below 130/80 04/26/2019 Type 2 diabetes mellitus with diabetic neuropath y 02/11/2019 Chronic diarrhea 05/14/2010 Type 2 diabetes mellitus wit h hemoglobin A1c goal of 7.0%-8.0% 01/08/2010 Overview (02/18/2016): ICD-10 update of inactive term DYSLIPIDEMIA, GOAL LDL BELOW 70 10/12/2009 Overview (10/12/2009): Per Lipid Taxonomy. Vitamin D deficiency 12/12/2007 senior living current use of anticoagulant therapy 0 05/27/2005 [...] Nummular eczema 09/06/2013 07/26/2021 [employer] Other*[id number] 02/03/2012 11/29/2016 Overview (02/03/2012): Study Titile: [employer] Markers for Patients with Cardiovascular Disease Project # [id number] PI: Merary Rivera MD Please call [phone] with study related questions Irritable bowel syndrome 05/14/201001/2021 Type 2 diabetes mellitus wit h hemoglobin A1c goal of less than 7.0% 08/06/2009 01/08/2010 Overview (02/16/2016): Modified per Diabetes protocol #14. ICD-10 update of inactive term ADVANCE DIRECTIVE INFORMATION 09/27/2007 07/26/2021 Overview (03/14/2006): Yes-copy on file Carpal tunnel syndrome 04/14/200404/01 Atherosclerosis of [place] co ronary artery of [place] heart without angina pectoris 04/14/2004 Overview (01/06/2020): [...] 09/09/2024 10:05 AM EST Sent patient a [employer] message to make aware. Lab ordered. ----- Message from Dayton Momin sent at 09/06/2024 6:08 PM EST ----- Repeat CMP in 2 weeks documented in this encounter Plan of Treatment Upcoming Encounters Date Type Department Care Team (Late st Contact Info) Description 10/01/2024 10:00 AM EST Office Visit [facility]acy [place] [address] [facility] [address] Lud[facility] [address] [facility] [address] 10/01/2024 10:30 AM EST Anticoagulation Ludivina [place] [address] [facility] [place] [address] [place], [facility] [address] [facility] [place] [address] 10/01/2024 2:00 PM EST Cardiac Studies Cardiac Studies, [facility] [address] [facility] [address] [place] [address] 10/17/2024 4:00 PM EST Office Visit Family Practice, [address] [phone] Pete Ambriz MD [address] [facility] [address] 12/05/2024 10:00 AM EST Cardiac Studies Cardiology, [facility] [address] [facility] [place] [address] [facility] [address] [facility] [place] [address] 12/20/2024 10:30 AM EST Office Visit Cardiology, [facility] [address] [facility] [place] [address] Dayton Momin [facility]rystal[facility] [place], [place] [address] 05/14/2025 10:00 AM EDT Nurse Only Ancillary Department, [address] [phone] [place], Nurse [facility] [address] [facility] [address] Pending Results Name Type Priority Associated Diagnoses [...] season) 2024 06/22/2021, 05/08/2021 HbA1c 11/24/2024 05/24/2024, 05/2024, 07/25/2023, Additional history exists B-12 01/28/2025 01/29/2024, 01/21, 07/29/2022, Additional history exists CKD PHOS USE SMARTSET 81068 01/28/202505/2024, 02/01/2023, 07/29/2022, Additional history exists GFR 03/02/2025 09/02/2024, 06/23, 05/24/2024, Additional history exists Diabetic Foot Exam 04/23/2025 04/23/2024, 1 , 07/26/2021, Additional history exists Adult Wellness Visit 05/08/2025 05/08/2024, 05/05/20 23 Depression Screening 05/08/2025 05/08/2024 Albumin/Creatinine Ratio 05/24/2025 08/ 024, 07/25/2023, 02/01/2023, Additional history exists Diabetic Eye Exam 06/17/2025 06/17/2024, , 12/01/2023, Additional history exists CKD HGB USE SMARTSET 17328 09/02/202509/02, 01/29/2024, 01/29/2024, Additional history exists DXA Scan 06/04/2026 06/04/2024, 02/20, 03/01/2022, Additional history exists Pneumococcal Vaccine: 65+ Years Completed 05/08/2018, 08/12/2016, 07/20/2005 VITAMIN D LEVEL ONCE IN A LIFETIME-USE SMARTSET# 98583 Completed 07/03/2024, 08/28/2008, 04/07/2008, Additional history exists [...] 2:56 PM 01/11/2005 3:56 PM Care Teams Grill Associate Relationship Specialty Start Date End Date Pete Ambriz MD [address] [place] [address] PCP - General Internal Medicine 05/08/24 documented as of this encounter
--- OUTSIDE RECORDS SUMMARY | 2024-10-24 23:37 | External Medical Summary | Summary of Care ---
Author Name Unknown Organization [facility] Address [address] [facility] [place] [address] Phone [phone] Care Team Providers Care Supervisor [employer] Name Role Phone Pete Ambriz MD Primary Care Provider [phone] Reason for Visit * Reason Onset Date Comments Abnormal Test Results 09/16/2024 Encounter Details Date Type Department Care Team (Late st Contact Info) Description 09/16/2024 Telephone Cardiology, [facility] [address] [place] [address] Dayton Momin PA-C [address] [place] [address] Abnormal Test Results Allergies Active Allergy Reactions Criticality Noted Date Comments Cephalexin Unknown 09/12/2002 Lisinopril 12/07/2018 Cough Oxycodone 12/04/2003 nausea, stomach pains Tetanus Toxoid 01/28/2009 Local reaction, fever documented as of this encounter (statuses as of 09/17/2024) Medications Vitamin D 50 MCG (1999) Oral CapsuleIndication s:Supplement Take 5,000 Units by mouth at bedtime. Active B-12 500 MCG Oral TabletIndications :Supplement Take by mouth 1 Tablet daily . Active Insulin Pen Needle 29G X 12MM (B/D Ultrafine)Indicat ions:Type 2 diabetes mellitus with hemoglobin A1c goal of 7.0%-8.0% ([facility]) Use to inject basaglar once [...] tion management encounter,Aortoco ronary bypass status,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),manager intermediate current use of anticoagulant therapy TAKE 1/2 TO 1 TABLET BY MOUTH ONCE DAILY DIRECTED BY [facility] CLINIC 90 Tablet 3 024 Active metFORMIN HCl ER 500 MG Oral Tablet Extended Release 24 Hour (Glucophage XR)Indications:Ty pe 2 diabetes mellitus with hemoglobin A1c goal of 7.0%-8.0% (HCC) TAKE 2 TABLETS BY MOUTH DAILY WITH MEALS Patient takes one once per day 08/05/2 024 Active Repaglinide 1 MG Oral Tablet (Prandin)Indicati [...] FOR WHEEZING OR COUGH 8.5 g 1 024 Active Empagliflozin 25 MG Oral Tablet (Jardiance) Take 1 Tablet by mouth in the morning. 90 Tablet 3 09/03/20 24 11:30 AM EST Active Insulin Glargine Solostar 100 UNIT/ML Subcutaneous Solution Pen-injector (Basaglar Melvin)Indicatio ns:Type 2 diabetes mellitus with hemoglobin A1c goal of 7.0%-8.0% (HCC) Inject 25 Units under the skin daily. 30 mL 4 Active Additional Information Patient taking differently: 23 UnitsSubcutaneous Daily(Non-Specified), Reported on 09/13/2024 Furosemide 20 MG Oral Tablet (Lasix)Indication s:Heart failure, diastolic, with acute decompensation (HCC) TAKE 2 TABLETS BY MOUTH MON, WED, FRI AND 1 TABLET ALL OTHER DAYS Active Furosemide 20 MG Oral Tablet (Lasix)Indication s:Heart failure, diastolic, with acute decompensation (HCC) Take 2 Tablets by mouth in the morning. 180 Tablet 3 024 2023 Disconti nued(Ref ill) Hospital, Clinic, or Other Facility Administered Medication Ordered Dose Route Frequency Start Date End Date Status potassium chloride ER tab 10 mEqIndications:Acute on chronic diastolic congestive heart failure (HCC) 10 mEq OR Daily(AM) 12/24/2019 Activ e documented as of this encounter (statuses as of 09/17/2024) Active Problems Problem Noted Date Diagnosed Date [...] macular edema, left eye 12/28/2020 Atherosclerosis of [place] co ronary artery of [place] heart without angina pectoris 12/19/2019 Persistent atrial [...] as of this encounter (statuses as of 09/17/2024) Resolved Problems Problem Noted Date Diagnosed Date [...] Nummular eczema 09/06/2013 07/26/2021 [employer] Other*[id number] 02/03/2012 11/29/2016 Overview (02/03/2012): Study Titile: Genomics Markers for Patients with Cardiovascular Disease Project # [id number] PI: Merary Rivera MD Please call [phone] with study related questions Irritable bowel syndrome 05/14/201001/2021 Type 2 diabetes mellitus wit h hemoglobin A1c goal of less than 7.0% 08/06/2009 01/08/2010 Overview (02/16/2016): Modified per Diabetes protocol #14. ICD-10 update of inactive term ADVANCE DIRECTIVE INFORMATION 09/27/2007 07/26/2021 Overview (03/14/2006): Yes-copy on file Carpal tunnel syndrome 04/14/200404/01 Atherosclerosis of [place] co ronary artery of [place] heart without angina pectoris 04/14/2004 Overview (01/06/2020): [...] as of this encounter (statuses as of 09/17/2024) Immunizations Name Administration Dates Next Due COVID-19 [...] as of this encounter Miscellaneous Notes * Addendum Note - Virgen Godinez CMA - 09/17/2024 2:44 PM ESTAddended by: VIRGEN GODINEZ on: 09/17/2024 02:44 PM Modules accepted: Orders * Telephone Encounter - Virgen Godinez CMA - 09/17/2024 2:05 PM EST Spoke with patient by phone. She states breathing is about the same - no better, no worse. Once she gets up in the morning and starts moving around, she gets out of breath easily. Still has a non-productive cough, using Tessalon Perles PRN. States she still has some LE edema, not every day, and typically resolves overnight. She does not weigh herself at home but last weight at Dr. Ambriz's office 09/09 was 160 #. Patient advised to decrease furosemide dosage per Dayton Momin. She is not currently taking isosorbide, agreeable to resuming. She will be getting prescriptions delivered to her home from [facility] tomorrow and requested this Rx be sent in today. She would like a prescription for 30 days at this time. Updated med list and pended new Rx. * Telephone Encounter - Dayton Momin PA-C - 09/16/2024 7:12 PM EST Patient called personally to discuss laboratory work and to evaluate symptoms following pacemaker reprogramming as well as titration of furosemide. No answer. Message left to return my call. Recommendations: Decrease furosemide dosing back to prior, 40 mg on MWF, 20 mg all other days ? Taking isosorbide (Imdur). If not, resume, 30 mg/day. Dayton Momin PA-C Department of Cardiology documented in this encounter Plan of Treatment Upcoming Encounters Date Type Department Care Team (Late st Contact Info) Description 10/01/2024 10:00 AM EST Office Visit Pharmacy, [address] [facility] [place] [phone] [place] [address] [facility] [address] 10/01/2024 10:30 AM EST Anticoagulation Pharmacy, [address] [facility] [place] [phone] [facility] [address] [facility] [address] 10/01/2024 2:00 PM EST Cardiac Studies Cardiac Studies, [facility] [address] [facility] [place] [address] 10/17/2024 4:00 PM EST Office Visit Family Practice, [facility] [address] [facility] [place] [phone] Pete Ambriz MD [address] [place] [address] 12/05/2024 10:00 AM EST Cardiac Studies Cardiology, [facility] [address] [facility] [place] [address] [facility] [address] [place] [address] 12/20/2024 10:30 AM EST Office Visit Cardiology, [facility] [address] [place] [address] Dayton Momin, [place]C [address] [place] [address] 05/14/2025 10:00 AM EDT Nurse Only Ancillary Department, [facility] [address] [facility] [place] [phone] [facility] Nurse Annual Wellness [address] [facility] [place] [address] Scheduled Procedures Name Priority Associated Diagnoses Date/Ti me COLONOSCOPY FLEXIBLE PROXIMA L DIAGNOSTIC Recall History of colonic polyps Health Maintenance Due Date Last Done Comments Colonoscopy 02/07/2022 02/07/2019, 01/21, 03/18/2010 COVID-19 Vaccine ( season) 2024 06/22/2021, 05/08/2021 B-12 01/28/2025 01/29/2024, 01/21, 07/29/2022, Additional history exists CKD PHOS USE SMARTSET 47860 01/28/2025 04/0 05/2024, 02/01/2023, 07/29/2022, Additional history exists GFR 03/13/2025 09/13/2024, 08/23, 07/03/2024, Additional history exists HbA1c 03/13/2025 09/13/2024, 08/11/2023, 01/29/2024, Additional history exists Diabetic Foot Exam 04/23/2025 04/23/2024, 1 , 07/26/2021, Additional history exists Adult Wellness Visit 05/08/2025 05/08/2024, 05/05/20 23 Depression Screening 05/08/2025 05/08/2024 Albumin/Creatinine Ratio 05/24/2025 08 024, 07/25/2023, 02/01/2023, Additional history exists Diabetic Eye Exam 06/17/2025 06/17/2024, , 12/01/2023, Additional history exists CKD HGB USE SMARTSET 79314 09/02/202509/02, 01/29/2024, 01/29/2024, Additional history exists DXA Scan 06/04/2026 06/04/2024, 02/20, 03/01/2022, Additional history exists Pneumococcal Vaccine: 65+ Years Completed 05/08/2018, 08/12/2016, 07/20/2005 VITAMIN D LEVEL ONCE IN A LIFETIME-USE SMARTSET# [id number] Completed 07/03/2024, 08/28/2008, 04/07/2008, Additional history exists [...] as of this encounter Visit Diagnoses Diagnosis ASCVD (arteriosclerotic cardiovascular disease)- Primary Unspecified cardiovascular disease Heart failure, diastolic, with acute decompensation (HCC) Acute on chronic diastolic heart failure PAF (paroxysmal atrial fibrillation) (HCC) 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 SSS (sick sinus syndrome) (HCC) Sinoatrial node dysfunction Cardiac pacemaker in situ documented in this encounter Advance Directives * No Code Status (Latest Code Status on File) Date Activated Date Inactivated Comments 01/11/2005 2:56 PM 01/11/2005 3:56 PM Care Teams Supervisor [employer] Relationship Specialty Start Date End Date Pete Ambriz MD [address] [place] [address] PCP - General Internal Medicine 05/08/24 documented as of this encounter
--- OUTSIDE RECORDS SUMMARY | 2024-10-24 23:37 | External Medical Summary | Summary of Care ---
Author Name Unknown Organization [facility] Address [address] [place] [address] Phone [phone] Care Team Providers Care Bank Worker Name Role Phone Pete Ambriz MD Primary Care Provider [phone] Reason for Visit * Reason Comments Medication Refill Encounter Details Date Type Department Care Team (Late st Contact Info) Description 09/24/2024 Refill Pharmacy, [address] [address] Pete Ambriz MD [address] [place] [address] Type 2 diabetes mellitus with hemoglobin A1c goal of 7.0%-8.0% ([facility]) Allergies Active Allergy Reactions Criticality Noted Date Comments Cephalexin Unknown 09/12/2002 Lisinopril 12/07/2018 Cough Oxycodone 12/04/2003 nausea, stomach pains Tetanus Toxoid 01/28/2009 Local reaction, fever documented as of this encounter (statuses as of 09/25/2024) Medications Vitamin D 50 MCG (1999) Oral CapsuleIndication s:Supplement Take 5,000 Units by mouth at bedtime. Active B-12 500 MCG Oral TabletIndications :Supplement Take by mouth 1 Tablet daily . Active Insulin Pen Needle 29G X 12MM (B/D Ultrafine)Indicat ions:Type 2 diabetes mellitus with hemoglobin A1c goal of 7.0%-8.0% ([facility]) Use to inject basaglar once daily. 100 [...] doses in 15 minutes. 12 Tablet 3 Active Fluticasone Propionate 50 MCG/ACT Nasal Suspension (Flonase) Administer 2 Sprays into each nostril in the morning. 16 g Active Montelukast Sodium 10 MG Oral Tablet (Singulair) Take 1 Tablet by mouth in the morning. 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 8.5 g 1 Active metFORMIN HCl ER 500 MG Oral Tablet Extended Release 24 Hour (Glucophage XR)Indications:Ty pe 2 diabetes mellitus with hemoglobin A1c goal of 7.0%-8.0% (HCC) TAKE 2 TABLETS BY MOUTH TWICE DAILY WITH MEALS 400 Tablet 1 Active Hospital, Clinic, or Other Facility Administered Medication Ordered Dose Route Frequency Start Date End Date Status potassium chloride ER tab 10 mEqIndications:Acute on chronic diastolic congestive heart failure (HCC) 10 mEq OR Daily(AM) 12/24/2019 Activ e documented as of this encounter (statuses as of 09/25/2024) Active Problems Problem Noted Date Diagnosed Date [...] macular edema, left eye 12/28/2020 Atherosclerosis of [place] co ronary artery of [place] heart without angina pectoris 12/19/2019 Persistent atrial fibrillation 11/28/2019 HTN, goal below 130/80 04/26/2019 Type 2 diabetes mellitus with diabetic neuropath y 02/11/2019 Chronic diarrhea 05/14/2010 Type 2 diabetes mellitus wit h hemoglobin A1c goal of 7.0%-8.0% 01/08/2010 Overview (02/18/2016): ICD-10 update of inactive term DYSLIPIDEMIA, GOAL LDL BELOW 70 10/12/2009 Overview (10/12/2009): Per Lipid Taxonomy. 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 0 05/27/2005 Overview (07/24/2017): ICD-10 update of inactive term Aortocoronary bypass status 10/17/2002 NONTOX MULTINODUL GOITER Cardiac pacemaker in situ Overview (04/27/2011): medtronic dual chamber for tachybrady Pulmonary hypertension DISH (diffuse idiopathic skeletal hyperostosis) documented as of this encounter (statuses as of 09/25/2024) Resolved Problems Problem Noted Date Diagnosed Date [...] Nummular eczema 09/06/2013 07/26/2021 [employer] Other*[id number] 02/03/2012 11/29/2016 Overview (02/03/2012): Study Titile: [employer] Markers for Patients with Cardiovascular Disease Project # [id number] PI: Merary Rivera MD Please call [phone] with study related questions Irritable bowel syndrome 05/14/201001/2021 Type 2 diabetes mellitus wit h hemoglobin A1c goal of less than 7.0% 08/06/2009 01/08/2010 Overview (02/16/2016): Modified per Diabetes protocol #14. ICD-10 update of inactive term ADVANCE DIRECTIVE INFORMATION 09/27/2007 07/26/2021 Overview (03/14/2006): Yes-copy on file Carpal tunnel syndrome 04/14/200404/01 Atherosclerosis of [place] co ronary artery of [place] heart without angina pectoris 04/14/2004 Overview (01/06/2020): Duplicate. DM type 2, not at goal 04/14/200408/06 Overview (08/06/2009): Modified per Diabetes protocol #14. Dyslipidemia, goal to be determined 04/14/2004 10/12/2009 Overview (10/12/2009): Per Lipid Taxonomy. 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 10/17/2002 01/06/20 20 Overview (01/06/2020): More specific code in use. 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 09/09/2002 11/28/19 08 Anticoagulation management encounter 09/09/2002 07/26/2021 PURE HYPERCHOLESTEROLEM 03/13/2001 020 03/2008 Lump or mass in breast 01/05/200107/26 DERMATITIS DUE TO PLANT 04/12/2000 02/0 03/2008 Edema 04/12/2000 11/28/2007 Type 2 diabetes mellitus wit h hemoglobin A1c goal of less than 7.0% 11/28/2007 Overview (02/16/2016): ICD-10 update of inactive term Hx of CABG 06/04/2020 Overview (06/04/2020): Duplicate. Cardiovascular arteriosclerosis 01/30/2019 Odd detrimental health beliefs 07/26/2021 documented as of this encounter (statuses as of 09/25/2024) Immunizations Name Administration Dates Next Due COVID-19 [...] encounter Miscellaneous Notes * Telephone Encounter - Pete Ambriz MD - 09/25/2024 12:25 PM ESTSigned Prescriptions: Disp Refills metFORMIN HCl ER 500 MG Oral Tablet Extend*400 Ta*1 Sig: TAKE 2 TABLETS BY MOUTH TWICE DAILY WITH MEALSAuthorizing Provider: PETE AMBRIZ documented in this encounter Plan of Treatment Upcoming Encounters Date Type Department Care Team (Late st Contact Info) Description 10/01/2024 10:00 AM EST Office Visit Pharmacy, [address] [place] [phone] [facility] [address] [place] [address] [place] [address] 10/01/2024 10:30 AM EST Anticoagulation Pharmacy, [address] [facility] [place] [phone] [facility] [address] [facility] [facility] [address] 10/01/2024 2:00 PM EST Cardiac Studies Cardiac Studies, [facility] [address] [facility] [place] [address] 10/17/2024 4:00 PM EST Office Visit [facility] Practice, [place] [facility] [address] [facility] [phone] Pete Ambriz MD [address] [facility] [facility] [address] 12/05/2024 10:00 AM EST Cardiac Studies [facility]iology, [facility] [place] [address] [facility] [place] [address] 12/20/2024 10:30 AM EST Office Visit Cardiology, [facility] [address] [facility] [place] [address] [place] Momin PACrystalC [facility] [place] [address] 05/14/2025 10:00 AM EDT Nurse Only Ancillary Department, [address] [facility] [place] [phone] [facility] Nurse Annual Well[facility] [address] [facility] [place] [address] Scheduled Procedures Name Priority Associated Diagnoses Date/Ti me COLONOSCOPY FLEXIBLE PROXIMA L DIAGNOSTIC Recall History of colonic polyps Health Maintenance Due Date Last Done Comments Colonoscopy 02/07/2022 02/07/2019, 01/21, 03/18/2010 COVID-19 Vaccine ( season) 2024 06/22/2021, 05/08/2021 B-12 01/28/2025 01/29/2024, 01/21, 07/29/2022, Additional history exists CKD PHOS USE SMARTSET 46033 01/28/2025 04/0 05/2024, 02/01/2023, 07/29/2022, Additional history exists GFR 03/13/2025 09/13/2024, 08/23, 07/03/2024, Additional history exists HbA1c 03/13/2025 09/13/2024, 0811/2023, 01/29/2024, Additional history exists Diabetic Foot Exam 04/23/2025 04/23/2024, 1 , 07/26/2021, Additional history exists Adult Wellness Visit 05/08/2025 05/08/2024, 05/05/20 23 Depression Screening 05/08/2025 05/08/2024 Albumin/Creatinine Ratio 05/24/2025 024, 07/25/2023, 02/01/2023, Additional history exists Diabetic Eye Exam 06/17/2025 06/17/2024, , 12/01/2023, Additional history exists CKD HGB USE SMARTSET 27379 09/02/202509/02, 01/29/2024, 01/29/2024, Additional history exists DXA Scan 06/04/2026 06/04/2024, 02/20, 03/01/2022, Additional history exists Pneumococcal Vaccine: 65+ Years Completed 05/08/2018, 08/12/2016, 07/20/2005 VITAMIN D LEVEL ONCE IN A LIFETIME-USE SMARTSET# [id number] Completed 07/03/2024, 08/28/2008, 04/07/2008, Additional history exists [...] mellitus with hemoglobin A1c goal of 7.0%-8.0% ([facility]) documented in this encounter Advance Directives * No Code Status (Latest Code Status on File) Date Activated Date Inactivated Comments 01/11/2005 2:56 PM 01/11/2005 3:56 PM Care Teams Bank Worker Relationship Specialty Start Date End Date Pete Ambriz MD [address] [place] [address] PCP - General Internal Medicine 05/08/24 documented as of this encounter
--- OUTSIDE RECORDS SUMMARY | 2024-10-24 23:37 | External Medical Summary | Summary of Care ---
Author Name Unknown Organization [facility] Address [address] [place] [address] Phone [phone] Care Team Providers Care Salesperson Yard Goods Name Role Phone Pete Ambriz MD Primary Care Provider [phone] Reason for Visit * Reason Comments Outpatient Testing Encounter Details Date Type Department Care Team (Late st Contact Info) Description 09/13/2024 11:20 AM EST Laboratory Laboratory, [place] [address] [place] [address] [place] [address] [place] [address] SOB (shortness of breath); Type 2 diabetes mellitus with stage 3a chronic kidney disease, with long-term current use of insulin (HCC); 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 To affected area. 15 g 024 Active Rosuvastatin Calcium 20 MG Oral Tablet (Crestor)Indicati ons:Dyslipidemia, goal LDL below 70 TAKE ONE TABLET BY MOUTH ONCE DAILY 90 Tablet 024 Active Losartan Potassium 100 MG Oral Tablet (Cozaar)Indicatio ns: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),Pulmonary hypertension (HCC) TAKE ONE TABLET BY MOUTH ONCE DAILY 90 Tablet 024 Active Metoprolol Tartrate 100 MG Oral Tablet (Lopressor)Indica tions: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) TAKE 1 TABLET BY MOUTH TWICE DAILY 180 Tablet 024 Active Acetaminophen ER 650 MG Oral [...] tion management encounter,Aortoco ronary bypass status,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),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 TAKE 1/2 TO 1 TABLET BY MOUTH ONCE DAILY DIRECTED BY [facility] CLINIC 90 Tablet 024 Active metFORMIN HCl ER 500 MG [...] differently: 23 UnitsSubcutaneous Daily(Non-Specified), Reported on 09/13/2024 Hospital, Clinic, or Other Facility Administered Medication [...] macular edema, left eye 12/28/2020 Atherosclerosis of [place] ronary artery of [place] heart without angina pectoris 12/19/2019 Persistent atrial fibrillation 11/28/2019 HTN, goal below 130/80 04/26/2019 Type 2 diabetes mellitus with diabetic neuropath y 02/11/2019 Chronic diarrhea 05/14/2010 Type 2 diabetes mellitus wit h hemoglobin A1c goal of 7.0%-8.0% 01/08/2010 Overview (02/18/2016): ICD-10 update of inactive term DYSLIPIDEMIA, GOAL LDL BELOW 70 10/12/2009 Overview (10/12/2009): Per Lipid Taxonomy. 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 ICD-10 update of inactive term ADVANCE DIRECTIVE INFORMATION 09/27/2007 07/26/2021 Overview (03/14/2006): Yes-copy on file Carpal tunnel syndrome 04/14/200404/01 Atherosclerosis of [place] ronary artery of [place] heart without angina pectoris 04/14/2004 Overview (01/06/2020): [...] PM EST documented as of this encounter Plan of Treatment Upcoming Encounters Date Type Department Care Team (Late st Contact Info) Description 10/01/2024 10:00 AM EST [facility] [place] [address] [facility] [address] [facility] [address] [facility] [address] 10/01/2024 10:30 AM EST Anticoagulation Pharmacy, [place] [address] [facility] [address] [facility] [address] [facility] [address] 10/01/2024 2:00 PM EST Cardiac Studies Cardiac Studies, [facility] [address] [facility] [place] [address] 10/17/2024 4:00 PM EST Office Visit Family Practice, [facility] [address] [facility] [phone] Pete Ambriz MD [address] [facility] [address] 12/05/2024 10:00 AM EST Cardiac Studies Cardiology, [facility] [address] [facility] [place] [address] [facility] [address] [facility] [place] [address] 12/20/2024 10:30 AM EST Office Visit Cardiology, [facility] [address] [place] [address] [place] Momin PA-C [address] [place] [address] 05/14/2025 10:00 AM EDT Nurse Only Ancillary Department, [facility] [place] [address] [facility] [place] [phone] [place], Nurse Annual Wellness [address] [facility] [place] [address] Pending Results Name Type Priority Associated Diagnoses Date /Time COMPREHENSIVE METABOLIC PANEL Lab Routine SOB (shortness of breath) 09/13/2024 11:11 AM EST HEMOGLOBIN A1C Lab Routine Type 2 diabetes mellitus with stage 3a chronic kidney disease, with long-term current use of insulin (HCC) 09/13/2024 11:11 AM EST Scheduled Procedures Name Priority Associated Diagnoses Date/Ti me COLONOSCOPY FLEXIBLE PROXIMA L DIAGNOSTIC Recall History of colonic polyps Health Maintenance Due Date Last Done Comments Colonoscopy 02/07/2022 02/07/2019, 01/21, 03/18/2010 COVID-19 Vaccine ( season) 2024 06/22/2021, 05/08/2021 HbA1c 11/24/2024 05/24/2024, 05/2024, 07/25/2023, Additional history exists B-12 01/28/2025 01/29/2024, 01/21, 07/29/2022, Additional history exists CKD PHOS USE SMARTSET 21309 01/28/202505/2024, 02/01/2023, 07/29/2022, Additional history exists GFR 03/02/2025 09/02/2024, 06/23, 05/24/2024, Additional history exists Diabetic Foot Exam 04/23/2025 04/23/2024, 1 , 07/26/2021, Additional history exists Adult Wellness Visit 05/08/2025 05/08/2024, 05/05/20 23 Depression Screening 05/08/2025 05/08/2024 Albumin/Creatinine Ratio 05/24/2025 024, 07/25/2023, 02/01/2023, Additional history exists Diabetic Eye Exam 06/17/2025 06/17/2024, , 12/01/2023, Additional history exists CKD HGB USE SMARTSET 75016 09/02/202509/02, 01/29/2024, 01/29/2024, Additional history exists DXA Scan 06/04/2026 06/04/2024, 02/20, 03/01/2022, Additional history exists Pneumococcal Vaccine: 65+ Years Completed 05/08/2018, 08/12/2016, 07/20/2005 VITAMIN D LEVEL ONCE IN A LIFETIME-USE SMARTSET# [id number] Completed 07/03/2024, 08/28/2008, 04/07/2008, Additional history exists [...] encounter Visit Diagnoses Diagnosis SOB (shortness of breath) Shortness of breath Type 2 diabetes mellitus with stage 3a chronic kidney disease, with long-term current use of insulin (HCC) 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
--- OUTSIDE RECORDS SUMMARY | 2024-10-24 23:37 | External Medical Summary | Summary of Care ---
Author Name Unknown Organization [facility] Address [address] [facility] [place] [address] Phone [phone] Care Team Providers Care Airplane Refueler Name Role Phone Pete Ambriz MD Primary Care Provider [phone] Reason for Visit * Reason Onset Date Comments Abnormal Test Results 09/16/2024 Encounter Details Date Type Department Care Team (Late st Contact Info) Description 09/16/2024 Telephone Cardiology, [facility] [address] [place] [address] Zander Jewell PA-C [address] [place] [address] Abnormal Test Results Allergies Active Allergy Reactions [...] hemoglobin A1c goal of 7.0%-8.0% ([facility]) Use to inject basaglar once [...] tion management encounter,Aortoco ronary bypass status,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),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 30 mL 4 024 Active Additional Information Patient taking differently: 23 [...] (HCC),ASCVD (arteriosclerotic cardiovascular disease),PAF (paroxysmal atrial fibrillation) ([facility]),SSS (sick sinus syndrome) (HCC),Cardiac pacemaker in situ Take 1 Tablet by mouth in the morning. 30 Tablet 11 Active Furosemide 20 MG Oral Tablet (Lasix)Indication [...] macular edema, left eye 12/28/2020 Atherosclerosis of [place] co ronary artery of [place] heart without angina pectoris 12/19/2019 Persistent atrial fibrillation 11/28/2019 HTN, goal below 130/80 04/26/2019 Type 2 diabetes mellitus with diabetic neuropath y 02/11/2019 Chronic diarrhea 05/14/2010 Type 2 diabetes mellitus wit h hemoglobin A1c goal of 7.0%-8.0% 01/08/2010 Overview (02/18/2016): ICD-10 update of inactive term DYSLIPIDEMIA, GOAL LDL BELOW 70 10/12/2009 Overview (10/12/2009): Per Lipid Taxonomy. Vitamin D deficiency 12/12/2007 intermediate current use of anticoagulant therapy 0 05/27/2005 [...] Nummular eczema 09/06/2013 07/26/2021 [employer] Other*[id number] 02/03/2012 11/29/2016 Overview (02/03/2012): Study Titile: [employer] Markers for Patients with Cardiovascular Disease Project # [id number] PI: Merary Rivera MD Please call [phone] with study related questions Irritable bowel syndrome 05/14/201001/2021 Type 2 diabetes mellitus wit h hemoglobin A1c goal of less than 7.0% 08/06/2009 01/08/2010 Overview (02/16/2016): Modified per Diabetes protocol #14. ICD-10 update of inactive term ADVANCE DIRECTIVE INFORMATION 09/27/2007 07/26/2021 Overview (03/14/2006): Yes-copy on file Carpal tunnel syndrome 04/14/200404/01 Atherosclerosis of [place] co ronary artery of [place] heart without angina pectoris 04/14/2004 Overview (01/06/2020): [...] breast 01/05/200107/26 DERMATITIS DUE TO PLANT 04/12/2000 020 03/2008 Edema 04/12/2000 11/28/2007 Type 2 diabetes [...] encounter Miscellaneous Notes * Addendum Note - Zander Jewell PA-C - 09/17/2024 3:56 PM ESTAddended by: ZANDER JEWELL on: 09/17/2024 03:56 PM Modules accepted: Orders * Addendum Note - Virgen Godinez CMA [...] Patient advised to decrease furosemide dosage per Zander Jewell. She is not currently taking isosorbide, agreeable to resuming. She will be getting prescriptions delivered to her home from [facility] tomorrow and requested this Rx be sent in today. She would like a prescription for 30 days at this time. Updated med list and pended new Rx. * Telephone Encounter - Zander Jewell PA-C - 09/16/2024 7:12 PM EST Patient called personally to discuss laboratory work and to evaluate symptoms following pacemaker reprogramming as well as titration of furosemide. No answer. Message left to return my call. Recommendations: Decrease furosemide dosing back to prior, 40 mg on MWF, 20 mg all other days ? Taking isosorbide (Imdur). If not, resume, 30 mg/day. Zander Jewell PA-C Department of Cardiology documented in this encounter Plan of Treatment Upcoming Encounters Date Type Department Care Team (Late st Contact Info) Description 10/01/2024 10:00 AM EST Office Visit Pharmacy, [address] [place] [phone] [facility] [address] [facility] [address] 10/01/2024 10:30 AM EST Anticoagulation Pharmacy, [address] [place] [phone] [facility] [address] [facility] [place] [address] 10/01/2024 2:00 PM EST Cardiac Studies Cardiac Studies, [facility] [address] [place] [address] 10/17/2024 4:00 PM EST Office Visit Family [facility] [address] [facility] [place] [phone] Pete Ambriz MD [address] [facility] [place] [place] [address] 12/05/2024 10:00 AM EST Cardiac Studies [facility]iology, [facility] [place] [address] [facility] [address] [place] [address] 12/20/2024 10:30 AM EST Office Visit Cardiology, [facility] [address] [place] [address] Zander Jewell [place] [facility] [address] 05/14/2025 10:00 AM EDT Nurse Only Ancillary Department, [place] [address] [facility] [phone] [place], Nurse Annual Wellness [facility] [address] Scheduled Procedures Name Priority Associated Diagnoses Date/Ti me COLONOSCOPY FLEXIBLE PROXIMA L DIAGNOSTIC Recall History of colonic polyps Health Maintenance Due Date Last Done Comments Colonoscopy 02/07/2022 02/07/2019, 01/21, 03/18/2010 COVID-19 Vaccine ( season) 2024 06/22/2021, 05/08/2021 B-12 01/28/2025 01/29/2024, 01/21, 07/29/2022, Additional history exists CKD PHOS USE SMARTSET 18045 01/28/2025 04/0 05/2024, 02/01/2023, 07/29/2022, Additional history [...] Additional history exists CKD HGB USE SMARTSET 32785 09/02/202509/02, 01/29/2024, 01/29/2024, Additional history exists DXA Scan 06/04/2026 06/04/2024, 02/20, 03/01/2022, Additional history exists Pneumococcal Vaccine: 65+ Years Completed 05/08/2018, 08/12/2016, 07/20/2005 VITAMIN D LEVEL ONCE IN A LIFETIME-USE SMARTSET# [id number] Completed 07/03/2024, 08/28/2008, 04/07/2008, Additional history exists [...] 2:56 PM 01/11/2005 3:56 PM Care Teams Airplane Refueler Relationship Specialty Start Date End Date Pete Ambriz MD [address] [place] [address] PCP - General Internal Medicine 05/08/24 documented as of this encounter
--- OUTSIDE RECORDS SUMMARY | 2024-10-24 23:37 | External Medical Summary | Summary of Care ---
Author Name Unknown Organization [facility] Address [address] [place] [address] Phone [phone] Care Team Providers Care Java Scala Developer Name Role Phone Pete Ambriz MD Primary Care Provider [phone] Reason for Visit * Reason Comments Follow Up Pt here today for fo llow up appointment Encounter Details Date Type Department Care Team (Late st Contact Info) Description 09/13/2024 10:40 AM EST Office Visit [facility] [address] [place] [address] Pete Ambriz MD [address] [place] [address] Type 2 diabetes mellitus with stage 3a chronic kidney disease, with long-term current use of insulin (HCC)*; Hypertensive heart and kidney disease with chronic diastolic congestive heart failure and stage 3a chronic kidney disease (HCC); Poor diet Allergies Active Allergy Reactions Criticality Noted Date [...] tion management encounter,Aortoco ronary bypass status,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),tank terminal gauger current use of anticoagulant therapy TAKE 1/2 [...] Take by mouth daily. 2023 Disconti nued(Pat martineleslie preferen ce/disco ntinuati on) Vitamin E 180 MG (400 UNIT) Oral Capsule Take 1 Capsule by mouth in the morning. Pt unsure of dose/strength. 2023 Disconti nued(Pat ient preferen ce/disco ntinuati on) Hospital, Clinic, or Other Facility Administered [...] macular edema, left eye 12/28/2020 Atherosclerosis of [place] co ronary artery of [place] heart without angina pectoris 12/19/2019 Persistent atrial fibrillation 11/28/2019 HTN, goal below 130/80 04/26/2019 Type 2 diabetes mellitus with diabetic neuropath y 02/11/2019 Chronic diarrhea 05/14/2010 Type 2 diabetes mellitus wit h hemoglobin A1c goal of 7.0%-8.0% 01/08/2010 Overview (02/18/2016): ICD-10 update of inactive term DYSLIPIDEMIA, GOAL LDL BELOW 70 10/12/2009 Overview (10/12/2009): Per Lipid Taxonomy. Vitamin D deficiency 12/12/2007 [facility] current use of anticoagulant therapy 0 05/27/2005 [...] Nummular eczema 09/06/2013 07/26/2021 [employer] Other*[id number] 02/03/2012 11/29/2016 Overview (02/03/2012): Study Titile: Genomics Markers for Patients with Cardiovascular Disease Project # [id number] PI: Merary Rivera MD Please call [phone] with study related questions Irritable bowel syndrome 05/14/201001/2021 Type 2 diabetes mellitus wit h hemoglobin A1c goal of less than 7.0% 08/06/2009 01/08/2010 Overview (02/16/2016): Modified per Diabetes protocol #14. ICD-10 update of inactive term ADVANCE DIRECTIVE INFORMATION 09/27/2007 07/26/2021 Overview (03/14/2006): Yes-copy on file Carpal tunnel syndrome 04/14/200404/01 Atherosclerosis of [place] co ronary artery of [place] heart without angina pectoris 04/14/2004 Overview (01/06/2020): [...] No 05/24/2024 Does the household have a [facility] hospit[facility] source of income? (Household - for ages [...] PM EST documented as of this encounter Patient Instructions * Patient Instructions* Pete Ambriz MD - 09/13/2024 10:43 AM EST Fasting morning glucose And 1 hours after breakfast or lunch Before dinner or 1 our after dinner Eating - vegetable first and then protein and then small portion carb If you drink juice, only during the day , ( not morning , not at night ) Water intake as much as you can Update me all the glucose numbers in one week documented in this encounter Progress Notes * Pete Ambriz MD - 09/13/2024 10:52 AM EST Subjective Tootie Almnaza is a 84 year old female. 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 current use of anticoagulant therapy Vitamin D deficiency DYSLIPIDEMIA, GOAL LDL BELOW 70 Type 2 diabetes mellitus with hemoglobin A1c goal of 7.0%-8.0% ([facility]) Chronic diarrhea Cardiac pacemaker in situ Pulmonary hypertension ([facility]) DISH (diffuse idiopathic skeletal hyperostosis) Type 2 diabetes mellitus with diabetic neuropathy ([facility]) HTN, goal below 130/80 Persistent atrial fibrillation ([facility]) Atherosclerosis of [place] coronary artery of [place] heart without angina pectoris Age-related osteoporosis without current pathological fracture Type 2 diabetes mellitus with mild nonproliferative diabetic retinopathy without macular edema, left eye ([facility]) Chronic kidney disease, stage 3a ([facility]) 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, with long-term current use of insulin ([facility]) Hypertensive heart and kidney disease with chronic diastolic congestive heart failure and stage 3a chronic kidney disease ([facility]) Type 2 diabetes mellitus with peripheral artery disease ([facility]) Type 2 diabetes mellitus with stage 3a chronic kidney disease, with long-term current use of insulin ([facility]) Sebaceous cyst Chronic rhinitis Patient cannot afford medications Current Outpatient Medications Medication Sig Dispense Refill Vitamin D 50 MCG (2000 UT) Oral Capsule Take 5,000 Units by [...] 1 TABLET BY [facility]TH ON[facility]ILY [facility] Tablet 3 metFORMIN HCl ER 500 MG Oral Tablet Extended Release 24 Hour (Glucophage XR) TAKE 2 TABLETS BY MOUTH DAILY WITH MEALS Patient takes one once per day Repaglinide 1 MG Oral Tablet (Prandin) Take 1 Tablet by mouth in the morning and 1 Tablet at noon and 1 Tablet in the evening. Take before meals. 270 Tablet 1 Aspirin 81 MG Oral Capsule Take by [...] CUT, CRUSH OR CHEW 50 Capsule 1 Albuterol Sulfate HFA 108 (90 Base) MCG/ACT Inhalation Aerosol Solution INHALE TWO PUFFS BY MOUTH EVERY 6 HOURS NEEDED FOR WHEEZING OR COUGH 8.5 g 1 Furosemide 20 MG Oral Tablet (Lasix) Take 2 Tablets by mouth in the morning. 180 Tablet 3 Empagliflozin 25 MG Oral Tablet (Jardiance) Take 1 Tablet by mouth in the morning. 90 Tablet 3 Insulin Glargine Solostar 100 UNIT/ML Subcutaneous Solution Pen-injector (Basaglar KwikPen) Inject 25 Units under the skin daily. (Patient taking differently: Inject 23 Units under the skin daily.) 30 mL 4 Current Facility-Administered Medications Medication Dose Route Frequency [...] performed by Trent Cesar MD at ENDOSCOPY [facility] CORONARY ANGIOGRAPHY W/LEFT HEART CATH 02/03/2012 CORONARY ANGIOGRAPHY W/LEFT HEART CATH performed by LAWRENCE GODINEZ at CARDIAC LABS [facility] EGD, FLEXIBLE, DIAGNOSTIC 02/17/2022 gastritis / INPT [facility] INC[facility] DRA[facility] Right 08/31/2022 shoulder abscess drained in office by Dr Channing Cedeno INJECT DX/THER SUBSTANCE INTERLAMINAR LUMBAR/SACRAL W IMAGE GUIDE 01/03/2022 INJECTION SPINE LUMBAR OR SACRAL performed by Abelardo Valdes DO at OR [facility] INSERT/REPLACE PACEMAKER,ATRIAL/VENTRICULAR 10/03/2007 dual pacer medtronic [id number] MISCELLANEOUS ORDER ([facility] ONLY) 3 X D&Cs, 1963, 1971 glenis NUC MED-BILIARY CCK STIMULATION 05/07/2010 ejection fraction 81% REMOVAL OF RUPTURED APPENDIX 01/1993 Appendectomy, Rupt Appendx+Abscess SACROILIAC JOINT INJECT W/GUIDANCE 11/11/2021 INJECTION SACROILIAC JOINT performed by Abelardo Valdes DO at OR [facility] SHOULDER SUBQ TUMOR REMOVAL, UNDER 3 CM Right 10/04/2022 EXCISION SOFT TISSUE TUMOR SHOULDER SUBCUTANEOUS performed by Channing Cedeno MD at OR [facility] SURGICAL PROCEDURE ONLY Right 10/04/2022 Excision [...] Stability Do you currently live in a mcfp or have no steady place to sleep [...] chills, diaphoresis, fever and unexpected weight change. Eyes: Positive for visual disturbance. Respiratory: Positive for shortness of breath (on exertion). Cardiovascular: Negative for chest pain, palpitations and leg swelling. Endocrine: Negative for cold intolerance, heat intolerance, polydipsia, polyphagia and polyuria. Neurological: Positive for numbness. Psychiatric/Behavioral: Negative for agitation and behavioral problems. The patient is nervous/anxious. Objective There were no vitals taken for this visit. Physical Exam Constitutional: General: She is not in acute distress. Appearance: Normal appearance. She is obese. She is not ill-appearing, toxic- appearing or diaphoretic. HENT: Head: Normocephalic and atraumatic. Nose: Nose normal. Eyes: Extraocular Movements: Extraocular movements intact. Musculoskeletal: Right lower leg: No edema. Left lower leg: No edema. Neurological: General: No focal deficit present. Mental Status: She is alert and oriented to person, place, and time. Psychiatric: Behavior: Behavior normal. ASSESSMENT/PLAN: Type 2 diabetes mellitus with stage 3a chronic kidney disease, with long-term current use of insulin (HCC) (Primary) - HEMOGLOBIN A1C; Future; Expected date: 09/13/2024 Hypertensive heart and kidney disease with chronic diastolic congestive heart failure and stage 3a chronic kidney disease (HCC) - BASIC METABOLIC PANEL; Future; Expected date: 09/13/2024 Poor diet Follow Up: Return in about 1 month (around 10/13/2024) for Labs Today, Clinic Visit. | For: Labs Today, Clinic Visit Patient Instructions Fasting morning glucose And 1 hours after breakfast or lunch Before dinner or 1 our after dinner Eating - vegetable first and then protein and then small portion carb If you drink juice, only during the day , ( not morning , not at night ) Water intake as much as you can Update me all the glucose numbers in one week Pete Ambriz MD documented in this encounter Nursing Notes * Lorenza Fonseca LPN - 09/13/2024 10:15 AM EST Chief Complaint Patient presents with Follow Up Pt here today for follow up appointment documented in this encounter Plan of Treatment Upcoming Encounters Date Type Department Care Team (Late st Contact Info) Description 10/01/2024 10:00 AM EST Office Visit Pharmacy, [place] [address] [place] [address] [facility] [address] [place] [address] 10/01/2024 10:30 AM EST Anticoagulation Pharmacy, [place] [address], [place] [address] [facility] [address] [place] [address] 10/01/2024 2:00 PM EST Cardiac Studies Cardiac Studies, [facility] [address] [facility] [place] [address] 10/17/2024 4:00 PM EST Office Visit [facility] [address] [facility] [phone] Pete Ambriz [facility] [address] [facility] [address] 12/05/2024 10:00 AM EST Cardiac Studies Cardiology, [facility] [address] [facility] [place] [address] [facility] [address] [facility] [place] [address] 12/20/2024 10:30 AM EST Office Visit Cardiology, [facility] [address] [place] [address] [place] Momin PA-C [address] [place] [address] 05/14/2025 10:00 AM EDT Nurse Only Ancillary Department, [address] [facility] [place] [phone] [place] Nurse [facility] [address] [facility] [place] [address] Pending Results Name Type Priority Associated Diagnoses Date /Time HEMOGLOBIN A1C Lab Routine Type 2 diabetes mellitus with stage 3a chronic kidney disease, with long-term current use of insulin (HCC) 09/13/2024 11:11 AM EST Scheduled Orders Name Type Priority Associated Diagnoses Orde r Schedule HEMOGLOBIN A1C Lab Routine Type 2 diabetes mellitus with stage 3a chronic kidney disease, with long-term current use of insulin (HCC) Expected: 09/13/2024 (Approximate), Expires: 09/13/2025 Scheduled Procedures Name Priority Associated Diagnoses Date/Ti me COLONOSCOPY FLEXIBLE PROXIMA L DIAGNOSTIC Recall History of colonic polyps Health Maintenance Due Date Last Done Comments Colonoscopy 02/07/2022 02/07/2019, 01/21, 03/18/2010 COVID-19 Vaccine ( season) 2024 06/22/2021, 05/08/2021 HbA1c 11/24/2024 05/24/2024, 05/2024, 07/25/2023, Additional history exists B-12 01/28/2025 01/29/2024, 01/21, 07/29/2022, Additional history exists CKD PHOS USE SMARTSET 38459 01/28/2025 04/0 05/2024, 02/01/2023, 07/29/2022, Additional history exists GFR 03/02/2025 09/02/2024, 06/23, 05/24/2024, Additional history exists Diabetic Foot Exam 04/23/2025 04/23/2024, 1 , 07/26/2021, Additional history exists Adult Wellness Visit 05/08/2025 05/08/2024, 05/05/20 23 Depression Screening 05/08/2025 05/08/2024 Albumin/Creatinine Ratio 05/24/2025 024, 07/25/2023, 02/01/2023, Additional history exists Diabetic Eye Exam 06/17/2025 06/17/2024, , 12/01/2023, Additional history exists CKD HGB USE SMARTSET 87398 09/02/202509/02, 01/29/2024, 01/29/2024, Additional history exists DXA Scan 06/04/2026 06/04/2024, 02/20, 03/01/2022, Additional history exists Pneumococcal Vaccine: 65+ Years Completed 05/08/2018, 08/12/2016, 07/20/2005 VITAMIN D LEVEL ONCE IN A LIFETIME-USE SMARTSET# [id number] Completed 07/03/2024, 08/28/2008, 04/07/2008, Additional history exists [...] long-term current use of insulin (HCC)- Primary Hypertensive heart and kidney disease with chronic diastolic congestive heart failure and stage 3a chronic kidney disease (HCC) Poor diet Unspecified nutritional deficiency documented in this encounter Advance Directives * No Code Status (Latest Code Status on File) Date Activated Date Inactivated Comments 01/11/2005 2:56 PM 01/11/2005 3:56 PM Care Teams Java Scala Developer Relationship Specialty Start Date End Date Pete Ambriz MD [address] [place] [id number] PCP - General Internal Medicine 05/08/24 documented as of this encounter"
--- OUTSIDE RECORDS SUMMARY | 2024-10-24 23:37 | External Medical Summary | Summary of Care ---
Author Name Unknown Organization [facility] Address [address] [facility] [place] [address] Phone [phone] Care Team Providers Care Chemist Assistant Name Role Phone Pete Ambriz MD Primary Care Provider [phone] Reason for Visit * Reason Onset Date Comments Abnormal Test Results 09/16/2024 Encounter Details Date Type Department Care Team (Late st Contact Info) Description 09/16/2024 Telephone Cardiology, [facility] [address] [place] [address] [place] Momin PA-C [address] [place] [address] Abnormal Test Results Allergies Active Allergy Reactions Criticality Noted Date Comments Cephalexin Unknown 09/12/2002 Lisinopril 12/07/2018 Cough Oxycodone 12/04/2003 nausea, stomach pains Tetanus Toxoid 01/28/2009 Local reaction, fever documented as of this encounter (statuses as of 09/16/2024) Medications Vitamin D 50 MCG (1999) Oral CapsuleIndication s:Supplement Take 5,000 Units by mouth at bedtime. Active B-12 500 MCG Oral TabletIndications :Supplement Take by mouth 1 Tablet daily . Active Insulin Pen Needle 29G X 12MM (B/D Ultrafine)Indicat ions:Type 2 diabetes mellitus with hemoglobin A1c goal of 7.0%-8.0% ([facility]) Use to inject basaglar once daily. 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 Take before meals. 270 Tablet 1 024 Active Aspirin 81 MG Oral Capsule [...] CUT, CRUSH OR CHEW 50 Capsule 1 024 Active Albuterol Sulfate HFA 108 (90 Base) MCG/ACT Inhalation Aerosol SolutionIndicatio ns:Bronchitis, complicated INHALE TWO PUFFS BY MOUTH EVERY 6 HOURS NEEDED FOR WHEEZING OR COUGH 8.5 g 1 024 Active Furosemide 20 MG Oral Tablet (Lasix)Indication [...] as of this encounter (statuses as of 09/16/2024) Active Problems Problem Noted Date Diagnosed Date [...] macular edema, left eye 12/28/2020 Atherosclerosis of [place] co ronary artery of [place] heart without angina pectoris 12/19/2019 Persistent atrial [...] as of this encounter (statuses as of 09/16/2024) Resolved Problems Problem Noted Date Diagnosed Date [...] Nummular eczema 09/06/2013 07/26/2021 [employer] Other*[id number] 02/03/2012 11/29/2016 Overview (02/03/2012): Study Titile: [employer] Markers for Patients with Cardiovascular Disease Project # [id number] PI: Merary Rivera MD Please call [phone] with study related questions Irritable bowel syndrome 05/14/201001/2021 Type 2 diabetes mellitus wit h hemoglobin A1c goal of less than 7.0% 08/06/2009 01/08/2010 Overview (02/16/2016): Modified per Diabetes protocol #14. ICD-10 update of inactive term ADVANCE DIRECTIVE INFORMATION 09/27/2007 07/26/2021 Overview (03/14/2006): Yes-copy on file Carpal tunnel syndrome 04/14/200404/01 Atherosclerosis of [place] co ronary artery of [place] heart without angina pectoris 04/14/2004 Overview (01/06/2020): [...] as of this encounter (statuses as of 09/16/2024) Immunizations Name Administration Dates Next Due COVID-19 mRNA, LNP-s, No Pre serve, 2-Dose Series ([employer] 06/22/2021,05/08/2021 Pneumococcal Conjugate Vacc, 13 Valent (Prevnar) [...] encounter Miscellaneous Notes * Telephone Encounter - [place] Momin PA-C [...] Office Visit Pharmacy, [address] [place] [phone] [facility] [address] [facility] [place] [address] 10/01/2024 10:30 AM EST Anticoagulation Pharmacy, [address] [facility] [place] [phone] [facility] [address] [facility] [place] [address] 10/01/2024 2:00 PM EST Cardiac Studies Cardiac Studies, [address] [place] [address] 10/17/2024 4:00 PM EST Office Visit Family Practice, [place] [facility] [place] [address] [facility] [place] [phone] Pete Ambriz MD [address] [place] [address] 12/05/2024 10:00 AM EST Cardiac Studies Cardiology, [facility] [place] [address] [place] [address] [facility] [address] [place] [address] 12/20/2024 10:30 AM EST Office Visit Cardiology, [facility] [place] [facility] [place] [address] [place] Momin PA-C [address] [facility] [place] [address] 05/14/2025 10:00 AM EDT Nurse Only Ancillary Department, [place] [address] [facility] [place] [phone] [place] Nurse [facility] [address] [place], [place] [address] [address] Scheduled Procedures Name Priority Associated Diagnoses Date/Ti me COLONOSCOPY FLEXIBLE PROXIMA L DIAGNOSTIC Recall History of colonic polyps Health Maintenance Due Date Last Done Comments Colonoscopy 02/07/2022 02/07/2019, 01/21, 03/18/2010 COVID-19 Vaccine ( season) 2024 06/22/2021, 05/08/2021 B-12 01/28/2025 01/29/2024, 01/21, 07/29/2022, Additional history exists CKD PHOS USE SMARTSET 07479 01/28/2025 04/0 05/2024, 02/01/2023, 07/29/2022, Additional history [...] Additional history exists CKD HGB USE SMARTSET 05552 09/02/202509/02, 01/29/2024, 01/29/2024, Additional history exists DXA Scan 06/04/2026 06/04/2024, 02/20, 03/01/2022, Additional history exists Pneumococcal Vaccine: 65+ Years Completed 05/08/2018, 08/12/2016, 07/20/2005 VITAMIN D LEVEL ONCE IN A LIFETIME-USE SMARTSET# [id number] Completed 07/03/2024, 08/28/2008, 04/07/2008, Additional history exists [...] 2:56 PM 01/11/2005 3:56 PM Care Teams Chemist Assistant Relationship Specialty Start Date End Date Pete Ambriz MD [address] [place] [id number] PCP - General Internal Medicine 05/08/24 documented as of this encounter
--- OUTSIDE RECORDS SUMMARY | 2024-10-24 23:37 | External Medical Summary ---
Author Name Unknown Address Unknown Organization K01:[facility] - [address] [facility] [place] [address] Laboratory Report Ordering Provider Test Date Status NIKITA BURKS 09/13/2024 11:11:13 Final Observation Date Value Abnormality Reference (Units ) Status HbA1C 09/13/2024 11:11:13 7.6 Above high normal 4. 0-5.6 (%) Final The use of HbA1c to monitor glycemic status is based on normal hemoglobin and HbA composition. This test should not be used in patients with abnormal hemoglobin that affects the half life of the red blood cell or the in vivo glycation rates. Glucose, estimated average 09/13/2024 11:11:13 171 Above high normal <126 (mg/dL) Fin al Performing Location [facility] [address] [facility] [place] [address]
--- OUTSIDE RECORDS SUMMARY | 2024-10-24 23:38 | External Medical Summary | Summary of Care ---
Author Name Unknown Organization [facility] Address [address] [place] [address] Phone [phone] Care Team Providers Care Worship Pastor Name Role Phone Pete Ambriz MD Primary Care Provider [phone] Reason for Visit * Reason Onset Date Comments Fax 09/10/2024 [facility] Encounter Details Date Type Department Care Team (Late st Contact Info) Description 09/10/2024 Telephone [facility] [address] [place] [address] Pete Ambriz MD [address] [place] [address] Fax ([place]) Allergies Active Allergy Reactions Criticality Noted Date Comments Cephalexin Unknown 09/12/2002 Lisinopril 12/07/2018 Cough Oxycodone 12/04/2003 nausea, stomach pains Tetanus Toxoid 01/28/2009 Local reaction, fever documented as of this encounter (statuses as of 09/10/2024) Medications Vitamin D 50 MCG (1999) Oral CapsuleIndications :Supplement Take 5,000 Units by mouth at bedtime. Active B-12 500 MCG Oral TabletIndications: Supplement Take by mouth 1 Tablet daily . Active Insulin Pen Needle 29G X 12MM (B/D Ultrafine)Indicati ons:Type 2 diabetes mellitus with hemoglobin A1c goal of 7.0%-8.0% ([facility]) Use to inject basaglar once daily. 100 Each 3 3 Active Potassium Gluconate 595 (99 K) MG Oral Tablet Take by mouth daily. Active Triamcinolone Acetonide 0.1 % External Cream (Aristocort)Indica tions:Rash and nonspecific skin eruption Apply topically to affected area 2 times a day. To affected area. 15 g 5 4 Active Rosuvastatin Calcium 20 MG Oral Tablet (Crestor)Indicatio ns:Dyslipidemia, goal LDL below 70 TAKE ONE TABLET BY MOUTH ONCE DAILY 90 Tablet 3 4 Active Losartan Potassium 100 MG Oral Tablet (Cozaar)Indication s: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 ([facility]),Pulmonary hypertension ([facility]) TAKE ONE TABLET BY MOUTH ONCE DAILY 90 Tablet 3 4 Active Metoprolol Tartrate 100 MG Oral Tablet (Lopressor)Indicat ions: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 ([facility]) TAKE 1 TABLET BY MOUTH TWICE DAILY 180 Tablet 3 4 Active Acetaminophen ER 650 MG Oral Tablet Extended Release (Tylenol 8 Hour Arthritis Pain) Take 1 Tablet by mouth every 8 hours as needed. Active Joint Health Oral Capsule Take by mouth. Activ e Nitroglycerin 0.4 MG Sublingual Tablet Sublingual (Nitrostat)Indicat ions:Aortocoronary bypass status Place 1 Tablet under the tongue every 5 minutes as needed (up to three tablets). Up to 3 doses in 15 minutes. 12 Tablet 3 4 Active Fluticasone Propionate 50 MCG/ACT Nasal Suspension (Flonase) Administer 2 Sprays into each nostril in the morning. 16 g 5 4 Active Montelukast Sodium 10 MG Oral Tablet (Singulair) Take 1 Tablet by mouth in the morning. 90 Tablet 3 4 Active Warfarin Sodium 2 MG Oral Tablet (Coumadin)Indicati ons: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, unspecified type ([facility]),Anticoagulat ion management encounter,Aortocor onary bypass status,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 ([facility]),penitentiary current use of anticoagulant therapy TAKE 1/2 TO 1 TABLET BY MOUTH ONCE DAILY DIRECTED BY COUMADIN CLINIC 90 Tablet 3 4 Active metFORMIN HCl ER 500 MG Oral Tablet Extended Release 24 Hour (Glucophage XR)Indications:Typ e 2 diabetes mellitus with hemoglobin A1c goal of 7.0%-8.0% ([facility]) TAKE 2 TABLETS BY MOUTH DAILY WITH MEALS Patient takes one once per day 4 Active Repaglinide 1 MG Oral Tablet (Prandin)Indicatio ns:Type 2 diabetes mellitus with hemoglobin A1c goal of 7.0%-8.0% (HCC) Take 1 Tablet by mouth in the morning and 1 Tablet at noon and 1 Tablet in the evening. Take before meals. 270 Tablet 1 4 Active Aspirin 81 MG Oral Capsule Take by mouth every morning. Active Vitamin E 180 MG (400 UNIT) Oral Capsule Take 1 Capsule by mouth in the morning. Pt unsure of dose/strength. Active Systane Nighttime Ophthalmic Ointment Instill into eye at bedtime. Active DULoxetine HCl 30 MG Oral Capsule Delayed Release Particles (Cymbalta)Indicati ons:Chronic pain syndrome TAKE 2 CAPS BY MOUTH ONCE DAILY IN THE MORNING 60 Capsule 5 4 Active Benzonatate 100 MG Oral Capsule (Tessalon Perles)Indications :Bronchitis, complicated TAKE 1 CAPSULE BY MOUTH 3 TIMES DAILY NEEDED FOR COUGH. DO NOT CUT, CRUSH OR CHEW 50 Capsule 1 4 Active Albuterol Sulfate HFA 108 (90 Base) MCG/ACT Inhalation Aerosol SolutionIndication s:Bronchitis, complicated INHALE TWO PUFFS BY MOUTH EVERY 6 HOURS NEEDED FOR WHEEZING OR COUGH 8.5 g 1 4 Active Furosemide 20 MG Oral Tablet (Lasix)Indications :Heart failure, diastolic, with acute decompensation (HCC) Take 2 Tablets by mouth in the morning. 180 Tablet 3 4 Active Empagliflozin 25 MG Oral Tablet (Jardiance) Take 1 Tablet by mouth in the morning. 90 Tablet 3 09/03/2024 11:30 AM EST 4 Active Insulin Glargine Solostar 100 UNIT/ML Subcutaneous Solution Pen-injector (Basaglar KwikPen)Indication s:Type 2 diabetes mellitus with hemoglobin A1c goal of 7.0%-8.0% (HCC) Inject 25 Units under the skin daily. 30 mL 4 4 Active Hospital, Clinic, or Other Facility Administered Medication Ordered Dose Route Frequency Start Date End Date Status potassium chloride ER tab 10 mEqIndications:Acute on chronic diastolic congestive heart failure (HCC) 10 mEq OR Daily(AM) 12/24/2019 Activ e documented as of this encounter (statuses as of 09/10/2024) Active Problems Problem Noted Date Diagnosed Date [...] macular edema, left eye 12/28/2020 Atherosclerosis of [place] co ronary artery of [place] heart without angina pectoris 12/19/2019 Persistent atrial fibrillation 11/28/2019 HTN, goal below 130/80 04/26/2019 Type 2 diabetes mellitus with diabetic neuropath y 02/11/2019 Chronic diarrhea 05/14/2010 Type 2 diabetes mellitus wit h hemoglobin A1c goal of 7.0%-8.0% 01/08/2010 Overview (02/18/2016): ICD-10 update of inactive term DYSLIPIDEMIA, GOAL LDL BELOW 70 10/12/2009 Overview (10/12/2009): Per Lipid Taxonomy. 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 0 05/27/2005 Overview (07/24/2017): ICD-10 update of inactive term Aortocoronary bypass status 10/17/2002 NONTOX MULTINODUL GOITER Cardiac pacemaker in situ Overview (04/27/2011): medtronic dual chamber for tachybrady Pulmonary hypertension DISH (diffuse idiopathic skeletal hyperostosis) documented as of this encounter (statuses as of 09/10/2024) Resolved Problems Problem Noted Date Diagnosed Date [...] Nummular eczema 09/06/2013 07/26/2021 [employer] Other*[id number] 02/03/2012 11/29/2016 Overview (02/03/2012): Study Titile: Genomics Markers for Patients with Cardiovascular Disease Project # [id number] PI: Merary Rivera MD Please call [phone] with study related questions Irritable bowel syndrome 05/14/201001/2021 Type 2 diabetes mellitus wit h hemoglobin A1c goal of less than 7.0% 08/06/2009 01/08/2010 Overview (02/16/2016): Modified per Diabetes protocol #14. ICD-10 update of inactive term ADVANCE DIRECTIVE INFORMATION 09/27/2007 07/26/2021 Overview (03/14/2006): Yes-copy on file Carpal tunnel syndrome 04/14/200404/01 Atherosclerosis of [place] co ronary artery of [place] heart without angina pectoris 04/14/2004 Overview (01/06/2020): [...] as of this encounter (statuses as of 09/10/2024) Immunizations Name Administration Dates Next Due COVID-19 [...] encounter Miscellaneous Notes * Telephone Encounter - Lorenza Fonseca LPN - 09/10/2024 1:55 PM EST Received Fax for BFPROVIDERS: Dr. Pete Ambriz PT PLAN OF CARE/EVALUATION received from [facility] CAREY and FAXED documented in this encounter Plan of Treatment Upcoming Encounters Date Type Department Care Team (Late st Contact Info) Description 09/13/2024 10:40 AM EST [facility] [place] [address] [facility] [address] Pete Ambriz MD [address] [facility] [address] 10/01/2024 10:00 AM EST Office Visit Pharm[facility], [place] [address] [facility] [address] [facility] [address] [address] 10/01/2024 10:30 AM EST Anticoagulation Pharm[facility], [place] [address] [facility] [address] [facility] [address] [facility] [address] 10/01/2024 2:00 PM EST Cardiac Studies Cardiac Studies, [address] [place] [address] 12/05/2024 10:00 AM EST Cardiac Studies Cardiology, [facility] [address] [place] [address] [facility] [address] [place] [address] 12/20/2024 10:30 AM EST Office Visit Cardiology, [facility] [address] [place] [address] [place] [address] [place] [address] 05/14/2025 10:00 AM EDT Nurse Only Ancillary Department, [place] [address] [facility] [place] [address] [place], Nurse Annual Wellness [address] [facility] [place] [address] Scheduled Procedures Name Priority Associated Diagnoses Date/Ti me COLONOSCOPY FLEXIBLE PROXIMA L DIAGNOSTIC Recall History of colonic polyps Health Maintenance Due Date Last Done Comments Colonoscopy 02/07/2022 02/07/2019, 01/21, 03/18/2010 COVID-19 Vaccine ( season) 2024 06/22/2021, 05/08/2021 HbA1c 11/24/2024 05/24/2024, 04/0 05/2024, 07/25/2023, Additional history exists B-12 01/28/2025 01/29/2024, 01/21, 07/29/2022, Additional history exists CKD PHOS USE SMARTSET 07223 01/28/2025 04/0 05/2024, 02/01/2023, 07/29/2022, Additional history exists GFR 03/02/2025 09/02/2024, 06/23, 05/24/2024, Additional history exists Diabetic Foot Exam 04/23/2025 04/23/2024, 1 , 07/26/2021, Additional history exists Adult Wellness Visit 05/08/2025 05/08/2024, 05/05/20 23 Depression Screening 05/08/2025 05/08/2024 Albumin/Creatinine Ratio 05/24/2025 08 024, 07/25/2023, 02/01/2023, Additional history exists Diabetic Eye Exam 06/17/2025 06/17/2024, , 12/01/2023, Additional history exists CKD HGB USE SMARTSET 58213 09/02/202509/02, 01/29/2024, 01/29/2024, Additional history exists DXA Scan 06/04/2026 06/04/2024, 02/20, 03/01/2022, Additional history exists Pneumococcal Vaccine: 65+ Years Completed 05/08/2018, 08/12/2016, 07/20/2005 VITAMIN D LEVEL ONCE IN A LIFETIME-USE SMARTSET# [id number] Completed 07/03/2024, 08/28/2008, 04/07/2008, Additional history exists [...] 2:56 PM 01/11/2005 3:56 PM Care Teams Worship Pastor Relationship Specialty Start Date End Date Pete Ambriz MD [address] [place] [address] PCP - General Internal Medicine 05/08/24 documented as of this encounter
--- OUTSIDE RECORDS SUMMARY | 2024-10-24 23:38 | External Medical Summary | Summary of Care ---
Author Name Unknown Organization [facility] Address [address] [place] [address] Phone [phone] Care Team Providers Care Trailer Driver Name Role Phone Pete Ambriz MD Primary Care Provider [phone] Encounter Details Date Type Department Care Team (Late st Contact Info) Description 09/09/2024 Orders Only Outcomes Research Department [address], [place] [id number] Merary Correa CHRA [employer] Other*[id number] Allergies Active Allergy Reactions Criticality Noted Date Comments Cephalexin Unknown 09/12/2002 Lisinopril 12/07/2018 Cough Oxycodone 12/04/2003 nausea, stomach pains Tetanus Toxoid 01/28/2009 Local reaction, fever documented as of this encounter (statuses as of 09/09/2024) Medications Vitamin D 50 MCG (1999 [place]) Oral CapsuleIndication s:Supplement Take 5,000 Units by mouth at bedtime. Active B-12 500 MCG Oral TabletIndications :Supplement Take by mouth 1 Tablet daily . Active Insulin Pen Needle 29G X 12MM (B/D Ultrafine)Indicat ions:Type 2 diabetes mellitus with hemoglobin A1c goal of 7.0%-8.0% ([facility]) Use to inject basaglar once daily. 100 Each 3 023 Active Potassium Gluconate 595 (99 K) MG Oral Tablet Take by mouth daily. Active Insulin Glargine Solostar 100 UNIT/ML Subcutaneous Solution Pen-injector (Basaglar KwikPen)Indicatio ns:Type 2 diabetes mellitus with hemoglobin A1c goal of 7.0%-8.0% (HCC) Inject 30 Units under the skin daily. 30 mL 3 023 Active Additional Information Patient taking differently: 25 UnitsSubcutaneous Daily(Non-Specified), Reported on 09/02/2024 Triamcinolone Acetonide 0.1 % External Cream (Aristocort)Indic [...] 15 minutes. 12 Tablet 3 024 Active Additional Information Patient not taking.Reported on 09/02/2024 Fluticasone Propionate 50 MCG/ACT Nasal Suspension (Flonase) Administer 2 Sprays into each nostril in the morning. 16 g 5 024 Active Montelukast Sodium 10 MG Oral Tablet (Singulair) Take 1 Tablet by mouth in the morning. 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 TAKE 1/2 TO 1 TABLET BY MOUTH ONCE DAILY DIRECTED BY COUMADIN CLINIC 90 Tablet 3 Active metFORMIN HCl ER 500 MG Oral [...] Tablet 3 4 11:30 AM EST Active Hospital, Clinic, or Other Facility Administered Medication Ordered Dose Route Frequency Start Date End Date Status potassium chloride ER tab 10 mEqIndications:Acute on chronic diastolic congestive heart failure (HCC) 10 mEq OR Daily(AM) 12/24/2019 Activ e documented as of this encounter (statuses as of 09/09/2024) Active Problems Problem Noted Date Diagnosed Date Chronic rhinitis 04/23/2024 Sebaceous cyst 10/04/2022 Type [...] macular edema, left eye 12/28/2020 Atherosclerosis of [place] co ronary artery of [place] heart without angina pectoris 12/19/2019 Persistent atrial fibrillation 11/28/2019 HTN, goal below 130/80 04/26/2019 Type 2 diabetes mellitus with diabetic neuropath y 02/11/2019 Chronic diarrhea 05/14/2010 Type 2 diabetes mellitus wit h hemoglobin A1c goal of 7.0%-8.0% 01/08/2010 Overview (02/18/2016): ICD-10 update of inactive term DYSLIPIDEMIA, GOAL LDL BELOW 70 10/12/2009 Overview (10/12/2009): Per Lipid Taxonomy. Vitamin D deficiency 12/12/2007 jail current use of anticoagulant therapy 0 05/27/2005 Overview (07/24/2017): ICD-10 update of inactive term Aortocoronary bypass status 10/17/2002 NONTOX MULTINODUL GOITER Cardiac pacemaker in situ Overview (04/27/2011): medtronic dual chamber for tachybrady Pulmonary hypertension DISH (diffuse idiopathic skeletal hyperostosis) documented as of this encounter (statuses as of 09/09/2024) Resolved Problems Problem Noted Date Diagnosed Date [...] Nummular eczema 09/06/2013 07/26/2021 [employer] Other*[id number] 02/03/2012 11/29/2016 Overview (02/03/2012): Study Titile: [employer] Markers for Patients with Cardiovascular Disease Project # [id number] PI: Merary Rivera MD Please call [phone] with study related questions Irritable bowel syndrome 05/14/201001/2021 Type 2 diabetes mellitus wit h hemoglobin A1c goal of less than 7.0% 08/06/2009 01/08/2010 Overview (02/16/2016): Modified per Diabetes protocol #14. ICD-10 update of inactive term ADVANCE DIRECTIVE INFORMATION 09/27/2007 07/26/2021 Overview (03/14/2006): Yes-copy on file Carpal tunnel syndrome 04/14/200404/01 Atherosclerosis of [place] co ronary artery of [place] heart without angina pectoris 04/14/2004 Overview (01/06/2020): [...] as of this encounter (statuses as of 09/09/2024) Immunizations Name Administration Dates Next Due COVID-19 [...] Team (Late st Contact Info) Description 09/09/2024 12:20 PM EST Office Visit Family Practice, [place] [address] [place] [address] Pete Ambriz MD [address] [place] [facility] [place] [address] 10/01/2024 10:00 AM EST Office Visit Pharmacy, [place] [address] [place] [address] [facility] [address] [place] [address] 10/01/2024 10:30 AM EST Anticoagulation Pharmacy, [place] [address] [place] [address] [facility] [address] [place] [address] 10/01/2024 2:00 PM EST Cardiac Studies [address], [address] [address] 12/05/2024 10:00 AM EST Cardiac Studies Cardiology, [facility] [address] [facility] [place] [address] [facility] [address] [place] [address] 12/20/2024 10:30 AM EST Office Visit Cardiology, [address] [place] [address] [place] M[place] PA-C [address] [place] [address] 05/14/2025 10:00 AM EDT Nurse Only Ancillary Department, [place] [address] [facility] [place] [address] [place], Nurse Annual Wellness [address] [facility] [place] [address] Scheduled Orders Name Type Priority Associated Diagnoses Orde r Schedule MYCODE SUBSEQUENT ADULT Lab Routine [employer] Other*[id number] Every 6 Months for 2 Occurrences starting 09/09/2024 until 09/29/2025 Scheduled Procedures Name Priority Associated Diagnoses Date/Ti me COLONOSCOPY FLEXIBLE PROXIMA L DIAGNOSTIC Recall History of colonic polyps Health Maintenance Due Date Last Done Comments Colonoscopy 02/07/2022 02/07/2019, 01/21, 03/18/2010 COVID-19 Vaccine ( season) 2024 06/22/2021, 05/08/2021 HbA1c 11/24/2024 05/24/2024, 040 05/2024, 07/25/2023, Additional history exists B-12 01/28/2025 01/29/2024, 01/21, 07/29/2022, Additional history exists CKD PHOS USE SMARTSET 86789 01/28/2025 04/0 05/2024, 02/01/2023, 07/29/2022, Additional history exists GFR 03/02/2025 09/02/2024, 06/23, 05/24/2024, Additional history exists Diabetic Foot Exam 04/23/2025 04/23/2024, 1 , 07/26/2021, Additional history exists Adult Wellness Visit 05/08/2025 05/08/2024, 05/05/20 23 Depression Screening 05/08/2025 05/08/2024 Albumin/Creatinine Ratio 05/24/2025 024, 07/25/2023, 02/01/2023, Additional history exists Diabetic Eye Exam 06/17/2025 06/17/2024, , 12/01/2023, Additional history exists CKD HGB USE SMARTSET 93246 09/02/202509/02, 01/29/2024, 01/29/2024, Additional history exists DXA Scan 06/04/2026 06/04/2024, 02/20, 03/01/2022, Additional history exists Pneumococcal Vaccine: 65+ Years Completed 05/08/2018, 08/12/2016, 07/20/2005 VITAMIN D LEVEL ONCE IN A LIFETIME-USE SMARTSET# 27263 Completed 07/03/2024, 08/28/2008, 04/07/2008, Additional history exists [...] as of this encounter Visit Diagnoses Diagnosis [employer] Other*[id number] documented in this encounter Advance Directives * No Code Status (Latest Code Status on File) Date Activated Date Inactivated Comments 01/11/2005 2:56 PM 01/11/2005 3:56 PM Care Teams Trailer Driver Relationship Specialty Start Date End Date Pete Ambriz MD [address] [place] [address] PCP - General Internal Medicine 05/08/24 documented as of this encounter
--- OUTSIDE RECORDS SUMMARY | 2024-10-24 23:38 | External Medical Summary | Summary of Care ---
Author Name Unknown Organization [facility] Address [address] [facility] [place] [address] Phone [phone] Care Team Providers Care Automatic Bow Maker Machine Tender Name Role Phone Pete Ambriz MD Primary Care Provider [phone] Encounter Details Date Type Department Care Team (Late st Contact Info) Description 09/10/2024 Result Scan Unspecified Department Dominic Gutiérrez MD [address] [place] [address] <No scans attached> Allergies Active Allergy Reactions Criticality Noted Date [...] with hemoglobin A1c goal of 7.0%-8.0% ([facility]) Use to inject basaglar once [...] 100 MG Oral Tablet (Cozaar)Indication s: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),Pulmonary hypertension (HCC) TAKE ONE TABLET BY MOUTH ONCE DAILY 90 Tablet 3 4 Active Metoprolol Tartrate 100 MG Oral Tablet (Lopressor)Indicat ions: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) TAKE 1 TABLET BY MOUTH [...] Oral Tablet (Coumadin)Indicati ons: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, unspecified type (HCC),Anticoagulat ion management encounter,Aortocor onary bypass status,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),longterm current use of anticoagulant therapy TAKE 1/2 [...] Solostar 100 UNIT/ML Subcutaneous Solution Pen-injector (Basagllauren Charles)Indication s:Type 2 diabetes mellitus with hemoglobin A1c [...] macular edema, left eye 12/28/2020 Atherosclerosis of [place] co ronary artery of [place] heart without angina pectoris 12/19/2019 Persistent atrial fibrillation 11/28/2019 HTN, goal below 130/80 04/26/2019 Type 2 diabetes mellitus with diabetic neuropath y 02/11/2019 Chronic diarrhea 05/14/2010 Type 2 diabetes mellitus wit h hemoglobin A1c goal of 7.0%-8.0% 01/08/2010 Overview (02/18/2016): ICD-10 update of inactive term DYSLIPIDEMIA, GOAL LDL BELOW 70 10/12/2009 Overview (10/12/2009): Per Lipid Taxonomy. 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 ICD-10 update of inactive term ADVANCE DIRECTIVE INFORMATION 09/27/2007 07/26/2021 Overview (03/14/2006): Yes-copy on file Carpal tunnel syndrome 04/14/200404/01 Atherosclerosis of [place] co ronary artery of [place] heart without angina pectoris 04/14/2004 Overview (01/06/2020): [...] Description 09/13/2024 10:40 AM EST Office Visit Family [facility], [place] [address] [facility], [place] [phone] Pete Ambriz MD [address] [facility], [place] [address] 10/01/2024 10:00 AM EST Office Visit Pharmacy, [place] [address] [facility], [place] [address] [facility] [address] [facility], [place] [address] 10/01/2024 10:30 AM EST Anticoagulation Pharmacy, [place] [address] [facility], [place] [address] [facility] [address] [facility], [place] [address] 10/01/2024 2:00 PM EST Cardiac Studies Cardiac Studies, [facility] [address] [facility] [place] [address] 12/05/2024 10:00 AM EST Cardiac Studies Cardiology, [facility] [address] [facility] [place] [address] [facility] [place] [address] 12/20/2024 10:30 AM EST Office Visit Cardiology, [facility] [address] [facility] [place] [address] Dayton Momin PA-C [address] [place] [address] 05/14/2025 10:00 AM EDT Nurse Only Ancillary Department, [address] [place] [address] [place], Nurse Annual [facility] [address] [place] [address] Scheduled Procedures Name Priority Associated Diagnoses Date/Ti me COLONOSCOPY FLEXIBLE PROXIMA L DIAGNOSTIC Recall History of colonic polyps Health Maintenance Due Date Last Done Comments Colonoscopy 02/07/2022 02/07/2019, 01/21, 03/18/2010 COVID-19 Vaccine ( season) 2024 06/22/2021, 05/08/2021 HbA1c 11/24/2024 05/24/2024, 05/2024, 07/25/2023, Additional history exists B-12 01/28/2025 01/29/2024, 01/21, 07/29/2022, Additional history exists CKD PHOS USE SMARTSET 37892 01/28/2025 040 05/2024, 02/01/2023, 07/29/2022, Additional history exists GFR 03/02/2025 09/02/2024, 06/23, 05/24/2024, Additional history exists Diabetic Foot Exam 04/23/2025 04/23/2024, 1 , 07/26/2021, Additional history exists Adult Wellness Visit 05/08/2025 05/08/2024, 05/05/20 23 Depression Screening 05/08/2025 05/08/2024 Albumin/Creatinine Ratio 05/24/20252 024, 07/25/2023, 02/01/2023, Additional history exists Diabetic Eye Exam 06/17/2025 06/17/2024, , 12/01/2023, Additional history exists CKD HGB USE SMARTSET 12514 09/02/202509/02, 01/29/2024, 01/29/2024, Additional history exists DXA Scan 06/04/2026 06/04/2024, 02/20, 03/01/2022, Additional history exists Pneumococcal Vaccine: 65+ Years Completed 05/08/2018, 08/12/2016, 07/20/2005 VITAMIN D LEVEL ONCE IN A LIFETIME-USE SMARTSET# 16741 Completed 07/03/2024, 08/28/2008, 04/07/2008, Additional history exists [...] Procedure Name Priority Date/Time Associated Diagnosis Comments CARDIOLOGY SCANNED RESULT 09/10/2024 documented in this encounter Results * CARDIOLOGY SCANNED RESULT (09/10/2024) 09/10/2024 Dominic Gutiérrez MD OTHER Final Result documented in this encounter Advance Directives * No Code Status (Latest Code Status on File) Date Activated Date Inactivated Comments 01/11/2005 2:56 PM 01/11/2005 3:56 PM Care Teams Automatic Bow Maker Machine Tender Relationship Specialty Start Date End Date Pete Ambriz MD [address] [place] [address] PCP - General Internal Medicine 05/08/24 documented as of this encounter
--- OUTSIDE RECORDS SUMMARY | 2024-10-24 23:38 | External Medical Summary | Summary of Care ---
Author Name Unknown Organization [facility] Address [address] [place] [address] Phone [phone] Care Team Providers Care Automatic Pilot Mechanic Name Role Phone Pete Ambriz MD Primary Care Provider Reason for Visit * Reason Comments eRx-Medication Refill Encounter Details Date Type Department Care Team (Late st Contact Info) Description 09/08/2024 Refill Pharmacy, [address] [address] Laverne Becker, DO [address] [place] [address] Type 2 diabetes mellitus with hemoglobin A1c goal of 7.0%-8.0% ([facility]) Allergies Active Allergy Reactions Criticality Noted Date Comments Cephalexin Unknown 09/12/2002 Lisinopril 12/07/2018 Cough Oxycodone 12/04/2003 nausea, stomach pains Tetanus Toxoid 01/28/2009 Local reaction, fever documented as of this encounter (statuses as of 09/09/2024) Medications Vitamin D 50 MCG (1999) Oral CapsuleIndication s:Supplement Take 5,000 Units by mouth at bedtime. Active B-12 500 MCG Oral TabletIndications :Supplement Take by mouth 1 Tablet daily . Active Insulin Pen Needle 29G X 12MM (B/D Ultrafine)Indicat ions:Type 2 diabetes mellitus with hemoglobin A1c goal of 7.0%-8.0% ([facility]) Use to inject basaglar once daily. [...] in 15 minutes. 12 Tablet 3 Active Additional Information Patient not taking.Reported on [...] tion management encounter,Aortoco ronary bypass status,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),USP current use of anticoagulant therapy TAKE 1/2 [...] (Lasix)Indication s:Heart failure, diastolic, with acute decompensation ([facility]) Take 2 Tablets by mouth in the morning. 180 Tablet 3 Active Empagliflozin 25 MG Oral Tablet (Jardiance) Take 1 Tablet by mouth in the morning. 90 Tablet 3 4 11:30 AM EST Active Insulin Glargine Solostar 100 UNIT/ML Subcutaneous Solution Pen-injector (Basaglar KwikPen)Indicatio ns:Type 2 diabetes mellitus with hemoglobin A1c goal of 7.0%-8.0% ([facility]) Inject 25 Units under the skin daily. 30 mL 4 024 Active Insulin Glargine Solostar 100 UNIT/ML Subcutaneous Solution Pen-injector (Basaglar KwikPen)Indicatio ns:Type 2 diabetes mellitus with hemoglobin A1c goal of 7.0%-8.0% (HCC) Inject 30 Units under the skin daily. 30 mL 3 023 2023 Discontinued Hospital, Clinic, or Other Facility Administered [...] macular edema, left eye 12/28/2020 Atherosclerosis of [place] co ronary artery of [place] heart without angina pectoris 12/19/2019 Persistent atrial fibrillation 11/28/2019 HTN, goal below 130/80 04/26/2019 Type 2 diabetes mellitus with diabetic neuropath y 02/11/2019 Chronic diarrhea 05/14/2010 Type 2 diabetes mellitus wit h hemoglobin A1c goal of 7.0%-8.0% 01/08/2010 Overview (02/18/2016): ICD-10 update of inactive term DYSLIPIDEMIA, GOAL LDL BELOW 70 10/12/2009 Overview (10/12/2009): Per Lipid Taxonomy. 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 ICD-10 update of inactive term ADVANCE DIRECTIVE INFORMATION 09/27/2007 07/26/2021 Overview (03/14/2006): Yes-copy on file Carpal tunnel syndrome 04/14/200404/01 Atherosclerosis of [place] co ronary artery of [place] heart without angina pectoris 04/14/2004 Overview (01/06/2020): [...] mRNA, LNP-s, No Pre serve, 2-Dose Series ([employer]ty [employer]) 06/22/2021,05/08/2021 Pneumococcal Conjugate Vacc, 13 Valent (Prevnar) [...] encounter Miscellaneous Notes * Telephone Encounter - Lizzy Novak RPh - 09/09/2024 9:12 AM EST Signed Prescriptions: Disp Refills Insulin Glargine Solostar 100 UNIT/ML Subc*30 mL 4 Sig: Inject 25 Units under the skin daily.Authorizing Provider: Devika AMBRIZ User: LIZZY NOVAK documented in this encounter Plan of Treatment Upcoming Encounters Date Type Department Care Team (Late st Contact Info) Description 09/09/2024 12:20 PM EST Office Visit Family Practice [employer] [facility] [address] [place] [phone] Pete Ambriz MD [address] [place] [address] 10/01/2024 10:00 AM EST Office Visit Pharmacy, [employer] [place] [address] [facility] [address] [facility] [address] 10/01/2024 10:30 AM EST Anticoagulation Pharmacy, [employer] [address] [facility] [address] [facility] [address] [facility], [place] [address] 10/01/2024 2:00 PM EST Cardiac Studies Cardiac Studies, [facility] [address] [facility] [place] [address] 12/05/2024 10:00 AM EST Cardiac Studies Cardiology, [facility] [address] [facility] [place] [address] [facility] [place] [address] 12/20/2024 10:30 AM EST Office Visit Cardiology, [facility] [address] [facility] [place] [address] [place] Momin PA-C [address] [facility] [place] [address] 05/14/2025 10:00 AM EDT Nurse Only Ancillary Department, [facility] [address] [facility] [address] [employer], Nurse [facility] [address] [facility] [address] Scheduled Procedures Name Priority Associated Diagnoses Date/Ti me COLONOSCOPY FLEXIBLE PROXIMA L DIAGNOSTIC Recall History of colonic polyps Health Maintenance Due Date Last Done Comments Colonoscopy 02/07/2022 02/07/2019, 01/21, 03/18/2010 COVID-19 Vaccine ( season) 2024 06/22/2021, 05/08/2021 HbA1c 11/24/2024 05/24/2024, 040 05/2024, 07/25/2023, Additional history exists B-12 01/28/2025 01/29/2024, 01/21, 07/29/2022, Additional history exists CKD PHOS USE SMARTSET 98730 01/28/2025 04/0 05/2024, 02/01/2023, 07/29/2022, Additional history exists GFR 03/02/2025 09/02/2024, 06/23, 05/24/2024, Additional history exists Diabetic Foot Exam 04/23/2025 04/23/2024, 1 , 07/26/2021, Additional history exists Adult Wellness Visit 05/08/2025 05/08/2024, 05/05/20 23 Depression Screening 05/08/2025 05/08/2024 Albumin/Creatinine Ratio 05/24/2025 024, 07/25/2023, 02/01/2023, Additional history exists Diabetic Eye Exam 06/17/2025 06/17/2024, , 12/01/2023, Additional history exists CKD HGB USE SMARTSET 12503 09/02/202509/02, 01/29/2024, 01/29/2024, Additional history exists DXA Scan 06/04/2026 06/04/2024, 02/20, 03/01/2022, Additional history exists Pneumococcal Vaccine: 65+ Years Completed 05/08/2018, 08/12/2016, 07/20/2005 VITAMIN D LEVEL ONCE IN A LIFETIME-USE SMARTSET# 72126 Completed 07/03/2024, 08/28/2008, 04/07/2008, Additional history exists [...] mellitus with hemoglobin A1c goal of 7.0%-8.0% ([facility]) documented in this encounter Advance Directives * No Code Status (Latest Code Status on File) Date Activated Date Inactivated Comments 01/11/2005 2:56 PM 01/11/2005 3:56 PM Care Teams Automatic Pilot Mechanic Relationship Specialty Start Date End Date Pete Ambriz MD [address] [place] [address] PCP - General Internal Medicine 05/08/24 documented as of this encounter
--- OUTSIDE RECORDS SUMMARY | 2024-10-24 23:38 | External Medical Summary | Summary of Care ---
Author Name Unknown Organization [facility] Address [address] [facility] [address] Phone [phone] Care Team Providers Care Dairy Department Manager Name Role Phone Pete Ambriz MD Primary Care Provider Reason for Visit * Reason Onset Date Comments Test Results 09/09/2024 Encounter Details Date Type Department Care Team (Late st Contact Info) Description 09/09/2024 Telephone Cardiology, [facility] [address] [place] [address] Dayton Momin PA-C [address] [place] [address] Test Results Allergies Active Allergy Reactions Criticality [...] mellitus with hemoglobin A1c goal of 7.0%-8.0% ([facility]) Use to inject basaglar once daily. 100 Each 3 08/31/20 23 Active Potassium Gluconate 595 (99 K) MG Oral Tablet Take by mouth daily. Active Triamcinolone Acetonide 0.1 % External Cream (Aristocort)Indica tions:Rash and nonspecific skin eruption Apply topically to affected area 2 times a day. To affected area. 15 g 5 02/15/20 24 Active Rosuvastatin Calcium 20 MG Oral Tablet (Crestor)Indicatio ns:Dyslipidemia, goal LDL below 70 TAKE ONE TABLET BY MOUTH ONCE DAILY 90 Tablet 3 02/19/20 24 Active Losartan Potassium 100 MG Oral Tablet (Cozaar)Indication s: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),Pulmonary hypertension (HCC) TAKE ONE TABLET BY MOUTH ONCE DAILY 90 Tablet 3 03/02/20 24 Active Metoprolol Tartrate 100 MG Oral Tablet (Lopressor)Indicat ions: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) TAKE 1 TABLET BY MOUTH TWICE DAILY 180 Tablet 3 04/19/20 24 Active Acetaminophen ER 650 MG Oral Tablet [...] doses in 15 minutes. 12 Tablet 3 04/23/20 24 Active Additional Information Patient not taking.Reported on 09/02/2024 Fluticasone Propionate 50 MCG/ACT Nasal Suspension (Flonase) Administer 2 Sprays into each nostril in the morning. 16 g 5 04/23/20 24 Active Montelukast Sodium 10 MG Oral Tablet (Singulair) Take 1 Tablet by mouth in the morning. 90 Tablet 3 04/23/20 24 Active Warfarin Sodium 2 MG Oral Tablet (Coumadin)Indicati ons: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, unspecified type (HCC),Anticoagulat ion management encounter,Aortocor onary bypass status,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),FDC current use of anticoagulant therapy TAKE 1/2 TO 1 TABLET BY MOUTH ONCE DAILY DIRECTED BY COUMADIN CLINIC 90 Tablet 3 05/21/20 24 Active metFORMIN HCl ER 500 MG Oral Tablet Extended Release 24 Hour (Glucophage XR)Indications:Typ e 2 diabetes mellitus with hemoglobin A1c goal of 7.0%-8.0% ([facility]) TAKE 2 TABLETS BY MOUTH DAILY WITH MEALS Patient takes one once per day 05/27/20 24 Active Repaglinide 1 MG Oral Tablet (Prandin)Indicatio ns:Type 2 diabetes mellitus with hemoglobin A1c goal of 7.0%-8.0% (HCC) Take 1 Tablet by mouth in the morning and 1 Tablet at noon and 1 Tablet in the evening. Take before meals. 270 Tablet 1 06/12/20 24 Active Aspirin 81 MG Oral Capsule Take [...] DAILY IN THE MORNING 60 Capsule 5 07/02/20 24 Active Benzonatate 100 MG Oral Capsule (Tessalon Perles)Indications :Bronchitis, complicated TAKE 1 CAPSULE BY MOUTH 3 TIMES DAILY NEEDED FOR COUGH. DO NOT CUT, CRUSH OR CHEW 50 Capsule 1 07/31/20 24 Active Albuterol Sulfate HFA 108 (90 Base) MCG/ACT Inhalation Aerosol SolutionIndication s:Bronchitis, complicated INHALE TWO PUFFS BY MOUTH EVERY 6 HOURS NEEDED FOR WHEEZING OR COUGH 8.5 g 1 08/15/20 24 Active Furosemide 20 MG Oral Tablet (Lasix)Indications :Heart failure, diastolic, with acute decompensation (HCC) Take 2 Tablets by mouth in the morning. 180 Tablet 3 09/02/20 24 Active Empagliflozin 25 MG Oral Tablet (Jardiance) Take 1 Tablet by mouth in the morning. 90 Tablet 3 09/03/2024 11:30 AM EST 09/02/20 24 Active Insulin Glargine Solostar 100 UNIT/ML Subcutaneous Solution Pen-injector (Basaglar KwikPen)Indication s:Type 2 diabetes mellitus with hemoglobin A1c goal of 7.0%-8.0% (HCC) Inject 25 Units under the skin daily. 30 mL 4 09/09/20 24 Active Hospital, Clinic, or Other Facility Administered [...] macular edema, left eye 12/28/2020 Atherosclerosis of [place] co ronary artery of [place] heart without angina pectoris 12/19/2019 Persistent atrial fibrillation 11/28/2019 HTN, goal below 130/80 04/26/2019 Type 2 diabetes mellitus with diabetic neuropath y 02/11/2019 Chronic diarrhea 05/14/2010 Type 2 diabetes mellitus wit h hemoglobin A1c goal of 7.0%-8.0% 01/08/2010 Overview (02/18/2016): ICD-10 update of inactive term DYSLIPIDEMIA, GOAL LDL BELOW 70 10/12/2009 Overview (10/12/2009): Per Lipid Taxonomy. 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 ICD-10 update of inactive term ADVANCE DIRECTIVE INFORMATION 09/27/2007 07/26/2021 Overview (03/14/2006): Yes-copy on file Carpal tunnel syndrome 04/14/200404/01 Atherosclerosis of [place] co ronary artery of [place] heart without angina pectoris 04/14/2004 Overview (01/06/2020): [...] 09/09/2024 10:05 AM EST Sent patient a [employer] message to make aware. Lab ordered. ----- Message from [place] Momin sent at 09/06/2024 6:08 PM EST ----- Repeat CMP in 2 weeks documented in this encounter Plan of Treatment Upcoming Encounters Date Type Department Care Team (Late st Contact Info) Description 09/09/2024 12:20 PM EST Office [facility] [place] [address] [facility] [phone] Pete Ambriz MD [address] [place] [facility] [place] [address] 10/01/2024 10:00 AM EST Office Visit Pharmacy, [place] [address] [address] [facility] [address] [facility] [address] [facility] [address] 10/01/2024 10:30 AM EST Anticoagulation Pharmacy, [place] [address] [address] [facility] [address] [facility] [address] [facility] [address] 10/01/2024 2:00 PM EST Cardiac Studies Cardiac Studies, [facility] [address] [facility] [place] [address] 12/05/2024 10:00 AM EST Cardiac Studies Cardiology, [facility] [address] [facility] [place], [place] [address] [facility] [address] [facility] [place] [address] 12/20/2024 10:30 AM EST Office Visit Cardiology, [facility] [address] [facility] [place], [place] [address] [place] Momin PA-C [address] [facility] [place], [place] [address] 05/14/2025 10:00 AM EDT Nurse Only Ancillary Department, [facility] [address] [place] [address] [place], Nurse Annual Wellness [address] [place] [address] Scheduled Orders Name Type Priority Associated Diagnoses [...] Additional history exists CKD PHOS USE SMARTSET 37343 01/28/2025 04/0 05/2024, 02/01/2023, 07/29/2022, Additional history exists GFR 03/02/2025 09/02/2024, 06/23, 05/24/2024, Additional history exists Diabetic Foot Exam 04/23/2025 04/23/2024, 1 , 07/26/2021, Additional history exists Adult Wellness Visit 05/08/2025 05/08/2024, 05/05/20 23 Depression Screening 05/08/2025 05/08/2024 Albumin/Creatinine Ratio 05/24/2025 024, 07/25/2023, 02/01/2023, Additional history exists Diabetic Eye Exam 06/17/2025 06/17/2024, , 12/01/2023, Additional history exists CKD HGB USE SMARTSET 67739 09/02/202509/02, 01/29/2024, 01/29/2024, Additional history exists DXA Scan 06/04/2026 06/04/2024, 02/20, 03/01/2022, Additional history exists Pneumococcal Vaccine: 65+ Years Completed 05/08/2018, 08/12/2016, 07/20/2005 VITAMIN D LEVEL ONCE IN A LIFETIME-USE SMARTSET# 60106 Completed 07/03/2024, 08/28/2008, 04/07/2008, Additional history exists [...] 2:56 PM 01/11/2005 3:56 PM Care Teams Dairy Department Manager Relationship Specialty Start Date End Date Pete Ambriz MD [address] [place] [address] PCP - General Internal Medicine 05/08/24 documented as of this encounter
--- OUTSIDE RECORDS SUMMARY | 2024-10-24 23:38 | External Medical Summary ---
Author Name Unknown Address Unknown Organization K01:[facility] [address] [facility] [place] [address] Laboratory Report Ordering Provider Test Date Status BEST FERMIN 09/13/2024 11:11:13 Final Observation Date Value Abnormality Reference (Units ) Status BUN 09/13/2024 11:11:13 31 Above high normal 6-20 (mg/dL) Final Creatinine 09/13/2024 11:11:13 1.5 Above high normal 0.5-1.0 (mg/dL) Final Glomerular filtration rate/1.73 sq M.predicted [Volume Rate/Area] in Serum, Plasma or Blood by Creatinine-based formula (CKD-EPI) 09/13/2024 11:11:13 35 Below low normal >=60 (mL/min) Final eGFR is calculated based on the CKD-EPI 2020 equation. Sodium 09/13/2024 11:11:13 140 135-146 (m mol/L) Final Potassium 09/13/2024 11:11:13 4.4 3.5-5.1 (m mol/L) Final Cl 09/13/2024 11:11:13 99 98-107 (mm ol/L) Final CO2 09/13/2024 11:11:13 28 22-32 (mmo l/L) Final Anion gap 09/13/2024 11:11:13 13 7-15 (mmol /L) Final Glucose 09/13/2024 11:11:13 286 Above high normal 70 -120 (mg/dL) Final Albumin 09/13/2024 11:11:13 4.0 3.8-5.0 (g /dL) Final AST (Aspartate aminotransferase) 09/13/2024 11:11:13 27 10-35 (U/L) Fin al Alk Phos 09/13/2024 11:11:13 56 35-130 (U/ L) Final Bilirubin, Total 09/13/2024 11:11:13 0.4 <=1 .2 (mg/dL) Final Calcium 09/13/2024 11:11:13 10.4 Above high normal 8. 4-10.2 (mg/dL) Final Protein 09/13/2024 11:11:13 7.3 6.0-8.3 (g /dL) Final ALT (Alanine aminotransferase) 09/13/2024 11:11:13 31 10-35 (U/L) Jurgen joyce Performing Location [facility] [place] [address] [facility] [address]
--- OUTSIDE RECORDS SUMMARY | 2024-10-24 23:38 | External Medical Summary | Summary of Care ---
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 Die Presser Name Role Phone Pete Ambriz MD Primary Care Provider [phone] Reason for Referral * Precert (Diagnostic Medical) (Within 10 days (routine)) - Authorized Specialty Diagnoses / Procedures Referred By Contac t Referred To Contact Cardiac Studies Diagnoses SOB (shortness of breath) ASCVD (arteriosclerotic cardiovascular disease) Heart failure, diastolic, with acute decompensation (HCC) Procedures ECHO, COMPLETE (2D), TRANS-THORACIC Dayton Momin PA-C [address] [place] [address] Phone: tel: fax: Referral ID Status Reason Start Date Expiration Date V isits Requested Visits Authorized [id number] Authorized Precert 09/09/2024 999 999 Reason for Visit * Reason Comments Follow Up Encounter Details Date Type Department Care Team (Latest Contact Info) Description 09/02/2024 10:00 AM EST Office Visit Cardiology, [facility] [address] [place] [address] Dayton Momin PA-C [address] [place] [address] Heart failure, diastolic, with acute decompensation (HCC)*; SOB (shortness of breath); PAF (paroxysmal atrial fibrillation) (HCC); SSS (sick sinus syndrome) ([facility]); Cardiac pacemaker in situ; Dyslipidemia, goal LDL below 70; ASCVD (arteriosclerotic cardiovascular disease) Allergies Active Allergy Reactions Criticality Noted Date Comments Cephalexin Unknown 09/12/2002 Lisinopril 12/07/2018 Cough Oxycodone 12/04/2003 nausea, stomach pains Tetanus Toxoid 01/28/2009 Local reaction, fever documented as of this encounter (statuses as of 09/02/2024) Medications Vitamin D 50 MCG (1999) Oral CapsuleIndicatio ns:Supplement Take 5,000 Units by mouth at bedtime. Active B-12 500 MCG Oral TabletIndication s:Supplement Take by mouth 1 Tablet daily . Active Insulin Pen Needle 29G X 12MM (B/D Ultrafine)Indica tions:Type 2 diabetes mellitus with hemoglobin A1c goal of 7.0%-8.0% ([facility]) Use to inject basaglar once daily. 100 Each 3 2022 Active Potassium Gluconate 595 (99 K) MG Oral Tablet Take by mouth daily. Active Insulin Glargine Solostar 100 UNIT/ML Subcutaneous Solution Pen-injector (Basaglar KwikPen)Indicati ons:Type 2 diabetes mellitus with hemoglobin A1c goal of 7.0%-8.0% ([facility]) Inject 30 Units under the skin daily. 30 mL 3 2022 Active Additional Information Patient taking differently: 25 UnitsSubcutaneous Daily(Non-Specified), Reported on 09/02/2024 Triamcinolone Acetonide 0.1 % External Cream (Aristocort)Carol [...] 15 minutes. 12 Tablet 3 2023 Active Additional Information Patient not taking.Reported on 09/02/2024 Fluticasone Propionate 50 MCG/ACT Nasal Suspension (Flonase) Administer 2 Sprays into each nostril in the morning. 16 g 5 2023 Active Montelukast Sodium 10 MG Oral Tablet (Singulair) Take 1 Tablet by mouth in the morning. 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 180 Tablet 3 2023 Active Furosemide 20 MG Oral Tablet (Lasix)Indicatio ns:Heart failure, diastolic, with acute decompensation (HCC) TAKE TWO TABLETS BY MOUTH ONCE DAILY ON MONDAY, MONDAY, AND MONDAY. TAKE 1 TAB ONCE DAILY ALL OTHER DAYS OF THE WEEK 135 Tablet 3 09/02 Discontinued Hospital, Clinic, or Other Facility Administered Medication Ordered Dose Route Frequency Start Date End Date Status potassium chloride ER tab 10 mEqIndications:Acute on chronic diastolic congestive heart failure (HCC) 10 mEq OR Daily(AM) 12/24/2019 Activ e documented as of this encounter (statuses as of 09/02/2024) Active Problems Problem Noted Date Diagnosed Date Chronic rhinitis 04/23/2024 Sebaceous cyst 10/04/2022 Type 2 diabetes mellitus wit h stage 3a chronic kidney disease, without long-term current use of insulin 07/18/2022 Type [...] macular edema, left eye 12/28/2020 Atherosclerosis of [place] ronary artery of [place] heart without angina pectoris 12/19/2019 Persistent atrial fibrillation 11/28/2019 HTN, goal below 130/80 04/26/2019 Type 2 diabetes mellitus with diabetic neuropath y 02/11/2019 Chronic diarrhea 05/14/2010 Type 2 diabetes mellitus wit h hemoglobin A1c goal of 7.0%-8.0% 01/08/2010 Overview (02/18/2016): ICD-10 update of inactive term DYSLIPIDEMIA, GOAL LDL BELOW 70 10/12/2009 Overview (10/12/2009): Per Lipid Taxonomy. Vitamin D deficiency 12/12/2007 [facility] current use of anticoagulant therapy 0 05/27/2005 Overview (07/24/2017): ICD-10 update of inactive term Aortocoronary bypass status 10/17/2002 NONTOX MULTINODUL GOITER Cardiac pacemaker in situ Overview (04/27/2011): medtronic dual chamber for tachybrady Pulmonary hypertension DISH (diffuse idiopathic skeletal hyperostosis) documented as of this encounter (statuses as of 09/02/2024) Resolved Problems Problem Noted Date Diagnosed Date [...] cough 07/08/2016 020 Bacterial pneumonia 05/18/2016 06/04/20 Overview (06/04/2020): Acute. Nausea without vomiting 05/18/201605/23 Hyponatremia 05/18/2016 07/26/2021 Nummular eczema 09/06/2013 07/26/2021 [employer] Other*[id number] 02/03/2012 11/29/2016 Overview (02/03/2012): Study Titile: Genomics Markers for Patients with Cardiovascular Disease Project # [id number] PI: Merary Rivera MD Please call [phone] with study related questions Irritable bowel syndrome 05/14/201001/2021 Type 2 diabetes mellitus wit h hemoglobin A1c goal of less than 7.0% 08/06/2009 01/08/2010 Overview (02/16/2016): Modified per Diabetes protocol #14. ICD-10 update of inactive term ADVANCE DIRECTIVE INFORMATION 09/27/2007 07/26/2021 Overview (03/14/2006): Yes-copy on file Carpal tunnel syndrome 04/14/200404/01 Atherosclerosis of [place] co ronary artery of [place] heart without angina pectoris 04/14/2004 Overview (01/06/2020): [...] as of this encounter (statuses as of 09/02/2024) Immunizations Name Administration Dates Next Due COVID-19 [...] Sign Reading Time Taken Comments Blood Pressure 132/74 09/02/2024 9:49 AM EST Pulse 72 09/02/2024 9:49 AM EST Temperature - - Respiratory Rate - - Oxygen Saturation 96% 09/02/2024 9:49 AM EST Inhaled Oxygen Concentration - - Weight 73 kg (161 lb) 09/02/2024 9:49 AM EST Height - - Body Mass Index 31.44 07/23/2024 10:28 AM EDT documented in this encounter Progress Notes * Amanda Galeana RPh - 09/02/2024 11:16 AM EST MTM had the pleasure of speaking with Martinez after Dayton Gongora's visit today. Discussed benefits of enrolling in GMO. Pt prefers to continue with her current local pharmacy [facility]. She did however state her Jardiance was too expensive so it was stopped. Ideally would like pt to restart medication, will refer to [facility]'s assistance team to assess for cost help (PACE vs HW angela ect). Let pt know they will be reaching out. Plan to get Jardiance through GMO once approved. Amanda Galeana Pharm D Clinical [facility] Pharmacist Cardiology 09/02/2024,11:17 AM * Dayton Momin PA-C - 09/02/2024 10:00 AM EST History of Present Illness: Tootie Almanza is a complex 84-year-old female here today for routine cardiology evaluation. Breathing could be better "I kaur and puff a lot, shallow rapid breathing." Nonproductive cough. No orthopnea or PND No fevers or chills. Stable peripheral edema. Weight is up 4 pounds since last evaluation in February Taking furosemide 40 mg MWF, 20 mg all other days Chronic pin jabs" of discomfort near the pacemaker generator No activity related chest pain or discomfort suggestive of angina. No tachypalpitations No dizziness, near syncope, or syncope. No fevers or chills. No epistaxis, hemoptysis, melena, hematochezia, or hematuria. Past Medical and Surgical History: Atherosclerotic coronary disease. Status post coronary bypass grafting x 2 for accelerated angina pectoris in July 2002 (MARIE graft to the left anterior descending & saphenous vein graft to the left circumflex). Progressive dyspnea on exertion and abnormal stress testing (showed ST depressions in II, III, aVF,V3 to V6 during the exercise portion of the study, converted to Lexiscan, with a small area of ischemia in mid anterior and apical anterior with normal EF and no wall motion abnormalities and no TID. January [address] [facility] which revealed a patent MARIE to LAD, patent SVG to left circumflex, and no other significant coronary stenosis identified which would be amenable to revascularization. Diastolic congestive heart failure. 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. Failed Sotalol. Intolerant to amiodarone (initiated in 11/2016, discontinued March 2017). Small splenic infarct on CT, January 2022 Chronic Coumadin anticoagulation Sick Sinus Syndrome. Status post dual chamber pacemaker insertion in September 2007. Generator exchange on 11/25/2016 complicated by significant left subclavian pacemaker pocket hematoma as well as medication issues. Hypertension. Dyslipidemia, goal LDL below 70. Noninsulin dependent diabetes mellitus with retinopathy, neuropathy, and renal insufficiency Peripheral artery disease. Moderate left lower extremity arterial insufficiency. Followed by [facility]. Multinodular goiter DISH (diffuse idiopathic skeletal hyperostosis) Age-related osteoporosis Psoriasis Vitamin D deficiency Irritable bowel syndrome Epistaxis. Colonoscopy with polypectomy Three prior D&C's. Appendectomy Total abdominal hysterectomy Hospitalized in January 2022 with symptomatic anemia. CTA of the chest with mild thickening of the distal esophagus raising concern for esophagitis. EGD on 02/17/2022 revealed a normal esophagus, mild gastritis, and duodenal erosions without bleeding in the bulb. Patient status post 1 unit packed red blood cells, 2 doses of IV venofer. Pantoprazole prescribed ER evaluation on August 18, 2022, diagnosis of COVID-19 Family History: Positive for CAD in her mother. Multiple family members with diabetes mellitus. Social History: Nonsmoker. No smokeless tobacco use. No alcohol. No illegal drug use. . Homemaker. Complete review of systems is otherwise as stated above, negative, noncontributory. Patient Active Problem List Diagnosis Aortocoronary bypass status NONTOX MULTINODUL GOITER [facility] current use of anticoagulant therapy Vitamin D deficiency DYSLIPIDEMIA, GOAL LDL BELOW 70 Type 2 diabetes mellitus with hemoglobin A1c goal of 7.0%-8.0% (HCC) Chronic diarrhea Cardiac pacemaker in situ Pulmonary hypertension (HCC) DISH (diffuse idiopathic skeletal hyperostosis) Type 2 diabetes mellitus with diabetic neuropathy (HCC) HTN, goal below 130/80 Persistent atrial fibrillation (HCC) Atherosclerosis of [place] coronary artery of [place] heart without angina pectoris Age-related osteoporosis without [...] mellitus with stage 3a chronic kidney disease, without long-term current use of insulin (HCC) Sebaceous cyst Chronic rhinitis Past Medical History: Diagnosis Date Cardiac pacemaker [...] TWO 08/23/2002 Off-pump CAB x 2 -- [place] COLONOSCOPY, DIAGNOSTIC (RECTUM) 03/18/2010 normal, repeat in 10 years COLONOSCOPY, DIAGNOSTIC (RECTUM) N/A 02/07/2019 poor prep/biopsies show adenomatous polyps/recall 3 years/COLONOSCOPY FLEXIBLE PROXIMAL DIAGNOSTIC performed by Trent Cesar MD at ENDOSCOPY [facility] CORONARY ANGIOGRAPHY W/LEFT HEART CATH 02/03/2012 CORONARY ANGIOGRAPHY W/LEFT HEART CATH performed by LAWRENCE GODINEZ at CARDIAC LABS [facility] EGD, FLEXIBLE, DIAGNOSTIC 02/17/2022 gastritis / INPT [facility] INCISION & DRAINAGE Right 08/31/2022 shoulder abscess drained in office by Dr Channing Cedeno INJECT DX/THER SUBSTANCE INTERLAMINAR LUMBAR/SACRAL W IMAGE GUIDE 01/03/2022 INJECTION SPINE LUMBAR OR SACRAL performed by Abelardo Valdes DO at OR [facility] INSERT/REPLACE PACEMAKER,ATRIAL/VENTRICULAR 10/03/2007 dual pacer medtronic [id number] MISCELLANEOUS ORDER ([facility] ONLY) 3 X D&Cs, 1963, 1970 glenis NUC MED-BILIARY CCK STIMULATION 05/07/2010 ejection fraction 81% REMOVAL OF RUPTURED APPENDIX 01/1993 Appendectomy, Rupt Appendx+Abscess SACROILIAC JOINT INJECT W/GUIDANCE 11/11/2021 INJECTION SACROILIAC JOINT performed by Abelardo Valdes DO at OR [facility] SHOULDER SUBQ TUMOR REMOVAL, UNDER 3 CM Right 10/04/2022 EXCISION SOFT TISSUE TUMOR SHOULDER SUBCUTANEOUS performed by Channing Cedeno MD at OR [facility] SURGICAL PROCEDURE ONLY Right 10/04/2022 Excision of sebaceous cyst right shoulder TOTAL HYSTERECTOMY 07/1993 PRINCE (Total Abdominal Hysterectomy) Review of patient's allergies indicates: Allergen Reactions Cephalexin Unknown Lisinopril Cough Oxycodone nausea, stomach pains Tetanus Toxoid Local reaction, fever Current Outpatient Medications Medication Sig Dispense Refill Vitamin D 50 MCG (1999 UT) Oral Capsule Take 5,000 Units by mouth at bedtime. B-12 500 MCG Oral Tablet Take by mouth 1 Tablet daily . Furosemide 20 MG Oral Tablet (Lasix) TAKE TWO TABLETS BY MOUTH ONCE DAILY ON MONDAY, MONDAY, ANDMONDAY. TAKE 1 TAB ONCE DAILY ALL OTHER DAYS OF THE WEEK 135 Tablet 3 Insulin Pen Needle 29G X 12MM (B/D Ultrafine) Use to inject basaglar once daily. 100 Each 3 Potassium Gluconate 595 (99 K) MG Oral Tablet Take by mouth daily. Insulin Glargine Solostar 100 UNIT/ML Subcutaneous Solution Pen-injector (Basaglar KwikPen) Inject 30 Units under the skin daily. (Patient taking differently: Inject 25 Units under the skin daily.) 30 mL 3 Triamcinolone Acetonide 0.1 % External Cream [...] 1 TABLE[facility] Tablet 3 metFORMIN HCl ER 500 [...] Oral Capsule Take by mouth every morning. Vitamin E 180 MG (400 UNIT) Oral Capsule Take 1 Capsule by mouth in the morning. Pt unsure of dose/strength. Systane Nighttime Ophthalmic Ointment Instill into eye [...] FOR WHEEZING OR COUGH 8.5 g 1 Current Facility-Administered Medications Medication Dose Route Frequency Provider Last Rate Last Admin potassium chloride ER tab 10 mEq 10 mEq Oral Daily(AM) Chinmay Scherer, PHYSICAL EXAM: BP 132/74 | Pulse 72 | Wt 73 kg (161 lb) | SpO2 96% | BMI 31.44 kg/m | BSA 1.76 m | General: NAD. HEENT: Normocephalic and atraumatic. Neck: No JVD. No carotid bruits. Lungs: Decreased. Diminished. Faint right lower expiratory wheeze. Cardiovascular: Regular, paced. Grade II/ systolic murmur heard best at the LLSB. No diastolic murmur. Abdomen: Soft, nontender. No palpable hepatosplenomegaly. Extremities: Trace to 1+ edema. Stasis changes. No cyanosis. No clubbing. Left lower extremity veinharvesting noted. Distal pulses not appreciated. Neurologic: Patient is intact. Data: Overnight sleep testing previously recommended and declined. June 23, 2020 Lexiscan Interpretation Summary (as per Dr. Bliss): Myocardial perfusion imaging is normal. Overall left ventricular systolic function was normal without regional wall motion abnormalities. The left ventricular ejection fraction was >70%. Compared to previous study of January 2019 no significant change. February 16, 2022 TTE interpretation summary ([facility]): Mild concentric LVH. Normal LV wall motion. Ejection fraction 55 to 60%. Moderately dilated left atrium. Mildly calcified aortic valve. Mild aortic regurgitation. Aortic stenosis is absent. Mild mitral annular calcification. Mild mitral regurgitation. Mild tricuspid regurgitation. Doppler findings do not suggest pulmonary hypertension. The LV diastolic function is abnormal based on the presence of left atrial dilatation but not graded due to thepresence of atrial fibrillation. September 02, 2024 device interrogation: FoundValue Lizeth CROCKER [id number], Serial # [id number] Interrogation. Remaining longevity: 12 months. Time in AT/AF: 63.8%. Ventricular paced: 63.3%. ASSESSMENT: Atherosclerotic coronary disease. Status post coronary bypass grafting x 2 for accelerated angina pectoris in July 2002 (MARIE graft to the left anterior descending & saphenous vein graft to the left circumflex). Progressive dyspnea on exertion and abnormal stress testing (showed ST depressions in II, III, aVF,V3 to V6 during the exercise portion of the study, converted to Lexiscan, with a small area of ischemia in mid anterior and apical anterior with normal EF and no wall motion abnormalities and no TID lead to January [address] [facility] which revealed a patent MARIE to LAD, patent SVG toleft circumflex, and no other significant coronary stenosis identified which would be amenable to revascularization. Chronic diastolic congestive heart failure. Volume status: Hypervolemic. 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. Failed Sotalol. Amiodarone initiated in 11/2016, discontinued in March 2017. Previously persistent now paroxysmal Sick Sinus Syndrome. Status post dual chamber pacemaker insertion in September 2007. Generator exchange on 11/25/2016 complicated by significant left subclavian pacemaker pocket hematomaas well as medication issues. Currently in VVIR mode. See above. Hypertension. Controlled. Dyslipidemia, goal LDL below 70. LDL cholesterol 60 mg/dL on 01/29/2024. GERD. EGD in January with gastritis and duodenal erosions. On pantoprazole 40 mg/day Peripheral artery disease. Moderate left lower extremity arterial insufficiency. Followed by [facility]. Noninsulin dependent diabetes mellitus. Followed by PCP. Deconditioned status. RECOMMENDATIONS/PLAN: Reprogram pacemaker back to AAIR<=>DDDR Increase furosemide to 40 mg/day Laboratory work today Refer for resting echocardiography Future considerations: ? Resumption of Imdur [facility] Cardiology follow-up in 3 months or as needed. ER with emergencies. Dayton Momin PA-C Department of Cardiology I spent a total of 30-39 minutes (exact time 36 mins) on the date of service in preparation, delivery, and documentation of the care provided to Tootie Almanza excluding any time spent in the performance of separately billed services. This visit involved medical care services related to at leastone serious condition or complex condition requiring ongoing care. This chart was completed in partutilizing [employer] Speech Voice Recognition Software. Grammatical errors, random word insertions, prounoun errors, and incomplete sentences are an occasional consequence of this system due to software limitations, ambient noise, and hardware issues. Any formal questions or concerns about the content, text, or information contained within the body of this dictation should be directly addressed to the provider for clarification. documented in this encounter Nursing Notes * Katy Rhodes CMA - 09/02/2024 9:49 AM EST Examination Room: 1 Name: Tootie Almanza Date of : (1940) Reason for Visit: 6m Interim Hospitalization(s): none Problems/Concerns: denied Chest Pain/SOB: denied chest pain, but does have SOB regularly. My [facility] is a way you can talk to your provider online through e-mail. Would you like to sign up? I can activate it for you? ALREADY ACTIVE Patient was instructed to not get up on the exam table until directed and assisted by their provider; patient is to remain seated in the chair/ wheelchair/ exam table for fall prevention and safety reasons. Patient is aware to have assistance to step down off exam table with personnel. Patient voiced full comprehension of instructions. documented in this encounter Plan of Treatment Upcoming Encounters Date Type Department Care Team (Late st Contact Info) Description 09/09/2024 12:20 PM EST Office Visit Family Practice, [place] [address] [facility], [place] [phone] Pete Ambriz MD [address] [place] [facility] [address] 10/01/2024 10:00 AM EST Office Visit Pharmacy, [place] [address] [facility] [address] [facility] [address] [place] [facility] [address] 10/01/2024 10:30 AM EST Anticoagulation Pharmacy, [place] [address] [facility] [address] [facility] [address] [place] [facility] [address] 10/01/2024 2:00 PM EST Cardiac Studies Cardiac Studies, [facility] [address] [facility] [place] [address] 12/05/2024 10:00 AM EST Cardiac Studies Cardiology, [facility] [address] [facility] [place] [address] [facility] [address] [facility] [place] [address] 12/20/2024 10:30 AM EST Office Visit Cardiology, [facility] [address] [facility] [place] [address] Dayton Momin PA-C [address] [place] [address] 05/14/2025 10:00 AM EDT Nurse Only Ancillary Department, [address] [place] [address] [place], Nurse [facility] [address] [place] [address] Pending Results Name Type Priority Associated Diagnoses Date /Time FERRITIN Lab Routine SOB (shortness of breath) 09/02/2024 11:12 AM EST IRON SCREEN, INCLUDING TIBC Lab Routine SOB (shortness of breath) 09/02/2024 11:12 AM EST Scheduled Orders Name Type Priority Associated Diagnoses Orde r Schedule FERRITIN Lab Routine SOB (shortness of breath) Expected: 09/02/2024, Expires: 09/02/2025 IRON SCREEN, INCLUDING TIBC Lab Routine SOB (shortness of breath) Expected: 09/02/2024, Expires: 09/02/2025 ECHO, COMPLETE (2D), TRANS-THORACIC Echocardiology Routine SOB (shortness of breath) ASCVD (arteriosclerotic cardiovascular disease) Heart failure, diastolic, with acute decompensation (HCC) Expected: 09/09/2024, Expires: 10/02/2026 Scheduled Procedures Name Priority Associated Diagnoses Date/Ti me COLONOSCOPY FLEXIBLE PROXIMA L DIAGNOSTIC Recall History of colonic polyps Health Maintenance Due Date Last Done Comments Colonoscopy 02/07/2022 02/07/2019, 01/21, 03/18/2010 COVID-19 Vaccine ( season) 2024 06/22/2021, 05/08/2021 HbA1c 11/24/2024 05/24/2024, 05/2024, 07/25/2023, Additional history exists B-12 01/28/2025 01/29/2024, 01/21, 07/29/2022, Additional history exists CKD PHOS USE SMARTSET 93764 01/28/2025 04/0 05/2024, 02/01/2023, 07/29/2022, Additional history exists GFR 03/02/2025 09/02/2024, 06/23, 05/24/2024, Additional history exists Diabetic Foot Exam 04/23/2025 04/23/2024, 1 , 07/26/2021, Additional history exists Adult Wellness Visit 05/08/2025 05/08/2024, 05/05/20 23 Depression Screening 05/08/2025 05/08/2024 Albumin/Creatinine Ratio 05/24/2025 024, 07/25/2023, 02/01/2023, Additional history exists Diabetic Eye Exam 06/17/2025 06/17/2024, , 12/01/2023, Additional history exists CKD HGB USE SMARTSET 56317 09/02/202509/02, 01/29/2024, 01/29/2024, Additional history exists DXA Scan 06/04/2026 06/04/2024, 02/20, 03/01/2022, Additional history exists Pneumococcal Vaccine: 65+ Years Completed 05/08/2018, 08/12/2016, 07/20/2005 VITAMIN D LEVEL ONCE IN A LIFETIME-USE SMARTSET# [id number] Completed 07/03/2024, 08/28/2008, 04/07/2008, Additional history exists [...] Not on filedocumented as of this encounter Results * (ABNORMAL) COMPREHENSIVE METABOLIC PANEL (09/02/2024 11:12 AM EST) BUN 25(H) 6 - 20 mg/dL 09/02/2024 1:30 PM EST [facility] 57-10 CREATININE 1.4(H) 0.5 - 1.0 mg/dL 09/02/2024 1:30 PM EST [facility] 57-10 EGFR 39(L) >=60 mL/min 09/02/2024 1:30 PM EST [facility] 57-10 Comment:eGFR is calculated b ased on the CKD-EPI 2020 equation. SODIUM 139 135 - 146 mmol/L 09/02/2024 1:30 PM EST LAB[facility]ORY [facility] 57-10 POTASSIUM 4.6 3.5 - 5.1 mmol/L 09/02/2024 1:30 PM EST [facility] [place] [facility] 57-10 CHLORIDE 100 98 - 107 mmol/L 09/02/2024 1:30 PM EST [facility] [place] [facility] 57-10 CO2 30 22 - 32 mmol/L 09/02/2024 1:30 PM EST [facility] [place] [facility] 57-10 ANION GAP 9 7 - 15 mmol/L 09/02/2024 1:30 PM EST [facility] [place] [facility] 57-10 GLUCOSE 199(H) 70 - 120 mg/dL 09/02/2024 1:30 PM EST [facility] [place] [facility] 57-10 Albumin 4.0 3.8 - 5.0 g/dL 09/02/2024 1:30 PM EST [facility] 57-10 AST 36(H) 10 - 35 U/L 09/02/2024 1:30 PM EST [facility] [place] [facility] 57-10 Alkaline Phosphatase 59 35 - 130 U/L 09/02/2024 1:30 PM EST [facility] 57-10 Bilirubin, Total 0.3 <=1.2 mg/dL 09/02/2024 1:30 PM EST [facility] 57-10 CALCIUM 9.9 8.4 - 10.2 mg/dL 09/02/2024 1:30 PM EST [facility] [place] [facility] 57-10 Protein 7.4 6.0 - 8.3 g/dL 09/02/2024 1:30 PM EST [facility] [place] [facility] 57-10 ALT 37(H) 10 - 35 U/L 09/02/2024 1:30 PM EST [facility] [place] [facility] 57-10 Blood Venous blood specimen / Unknown Venipuncture / Unknown 09/02/2024 11:12 AM EST 09/02/2024 11:12 AM EST Dayton Momin PA-C LAB BLOOD ORDERABLES Final Result [facility] 57-10 [address] [place] [address] * CBC (09/02/2024 11:12 AM EST) WBC 8.66 4.00 - 10.80 K/uL 09/02/2024 11:38 AM EST [facility] 57-10 RBC 4.22 3.85 - 5.15 M/uL 09/02/2024 11:38 AM EST [facility] [place] [facility] 57-10 HGB 12.9 12.0 - 15.3 g/dL 09/02/2024 11:38 AM EST [facility] [place] [facility] 57-10 HCT 39.7 36.0 - 45.2 % 09/02/2024 11:38 AM EST [facility] 57-10 MCV 94.1 81.5 - 97.5 fL 09/02/2024 11:38 AM EST [facility] 57-10 MCH 30.6 27.0 - 34.0 pg 09/02/2024 11:38 AM EST [facility] [place] [facility] 57-10 MCHC 32.5 32.0 - 36.0 g/dL 09/02/2024 11:38 AM EST [facility] 57-10 RDW 15.6 11.5 - 15.5 % 09/02/2024 11:38 AM EST [facility] [place] [facility] 57-10 PLT 280 140 - 400 K/uL 09/02/2024 11:38 AM EST [facility] 57-10 MPV 9.6 6.6 - 11.1 fL 09/02/2024 11:38 AM EST [facility] [place] [facility] 57-10 Blood Venous blood specimen / Unknown Venipuncture / Unknown 09/02/2024 11:12 AM EST 09/02/2024 11:12 AM EST Dayton Momin PA-C LAB BLOOD ORDERABLES Final Result [facility] 57-10 [address] [place] [address] documented in this encounter Visit Diagnoses Diagnosis Heart failure, diastolic, with acute decompensation (HCC)- Primary Acute on chronic diastolic heart failure SOB (shortness of breath) Shortness of breath PAF (paroxysmal atrial fibrillation) (HCC) 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 SSS (sick sinus syndrome) (HCC) Sinoatrial node dysfunction Cardiac pacemaker in situ Dyslipidemia, goal LDL below 70 Other and unspecified hyperlipidemia ASCVD (arteriosclerotic cardiovascular disease) Unspecified cardiovascular disease documented in this encounter Advance Directives * No Code Status (Latest Code Status on File) Date Activated Date Inactivated Comments 01/11/2005 2:56 PM 01/11/2005 3:56 PM Care Teams Die Presser Relationship Specialty Start Date End Date [facility]riz [facility] [address] [facility] [id number] PCP - General Internal Medicine 05/08/24 documented as of this encounter
--- OUTSIDE RECORDS SUMMARY | 2024-10-24 23:38 | External Medical Summary | Summary of Care ---
Author Name Unknown Organization [facility] Address [address] [facility] [place] [address] Phone [phone] Care Team Providers Care Biochemist Name Role Phone Pete Ambriz MD Primary Care Provider [phone] Reason for Visit * Reason Onset Date Comments Medication Problem 09/02/2024 Jardinace cos t Encounter Details Date Type Department Care Team (Late st Contact Info) Description 09/02/2024 Telephone Cardiology, [facility] [address] [facility] [place] [address] [facility] [address] [facility] [place] [id number] Medication Problem (Jardinace cost ) Allergies Active Allergy Reactions Criticality Noted Date [...] Oral Tablet (Coumadin)Indicat ions: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, unspecified type ([facility]),Anticoagula tion management encounter,Aortoco ronary bypass status,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 (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) TAKE 2 TABLETS BY MOUTH DAILY WITH MEALS Patient takes one once per day 024 Active Repaglinide 1 MG Oral Tablet (Prandin)Indicati ons:Type 2 diabetes mellitus with hemoglobin A1c goal of 7.0%-8.0% ([facility]) Take 1 Tablet by mouth in the [...] (Lasix)Indication s:Heart failure, diastolic, with acute decompensation ([facility]) Take 2 Tablets by mouth in the morning. 180 Tablet 3 024 Active Empagliflozin 25 MG Oral Tablet (Jardiance) Take 1 Tablet by mouth in the morning. 90 Tablet 3 024 Active Hospital, Clinic, or Other Facility [...] edema, left eye 12/28/2020 Atherosclerosis of [place] co ronary artery of [place] heart without angina pectoris 12/19/2019 Persistent atrial [...] Nummular eczema 09/06/2013 07/26/2021 [employer] Other*[id number] 02/03/2012 11/29/2016 Overview (02/03/2012): Study Titile: Genomics Markers for Patients with Cardiovascular Disease Project # [id number] PI: Merary Rivera MD Please call [phone] with study related questions Irritable bowel syndrome 05/14/201001/2021 Type 2 diabetes mellitus wit h hemoglobin A1c goal of less than 7.0% 08/06/2009 01/08/2010 Overview (02/16/2016): Modified per Diabetes protocol #14. ICD-10 update of inactive term ADVANCE DIRECTIVE INFORMATION 09/27/2007 07/26/2021 Overview (03/14/2006): Yes-copy on file Carpal tunnel syndrome 04/14/200404/01 Atherosclerosis of [place] co ronary artery of [place] heart without angina pectoris 04/14/2004 Overview (01/06/2020): Duplicate. DM type 2, not at goal 04/14/200408/06 Overview (08/06/2009): Modified per Diabetes protocol #14. Dyslipidemia, goal to be determined 04/14/2004 10/12/2009 Overview (10/12/2009): Per Lipid Taxonomy. 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 10/17/2002 01/06/20 Overview (01/06/2020): More specific code in use. 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 09/09/2002 11/28/19 Anticoagulation management encounter 09/09/2002 07/26/2021 PURE HYPERCHOLESTEROLEM [...] encounter Miscellaneous Notes * Addendum Note - Amanda Arevalo RPh - 09/02/2024 2:29 PM EST Addended by: AMANDA AREVALO on: 09/02/2024 02:29 PM Modules accepted: Orders * Telephone Encounter - Amanda Arevalo RP - 09/02/2024 2:27 PM EST Pt approved for [facility] for Jardinace. Will restart medication. Sent to [facility]. Pt aware and agreeable. NAE [place]. I ordered a follow up BMP for her to get when she [id number] Group: [id number] BIN: [id number] PCN: [id number] Thanks! Amanda Arevalo Pharm D Clinical MTD Pharmacist Cardiology 09/02/2024,2:28 PM * Telephone Encounter - Amanda Arevalo RPh - 09/02/2024 11:18 AM EST Patient was previous on Jardiance 10 mg daily for Type 2 Diabetes and cardiomyopathy. Medication was stopped due to cost/pt entered doughnut hole. Ideally would like to restart Jardiance. Will send to ID team to look for assistance (PACE versus HW angela ect) I let patient know to expect a phone call from the ID team. Patient requesting use of mobile [phone] (M) and speak with spouse Trent. If approved, will be sending Jardiance to [facility]. Pt declined to have other medications sent to O Amanda Arevalo Pharm D Clinical [facility] Pharmacist Cardiology 09/02/2024,11:19 AM documented in this encounter Plan of Treatment Upcoming Encounters Date Type Department Care Team (Late st Contact Info) Description 09/09/2024 12:20 PM EST Office [facility] [place] [address] [facility] [phone] Pete Ambriz MD [address] [facility] [address] 10/01/2024 10:00 AM EST Office Visit Pharm[facility], [place] [address] [address] [facility] [address] [facility] [address] [facility] [address] 10/01/2024 10:30 AM EST Anticoagulation Pharmacy, [place] [address] [address] [facility] [address] [facility] [address] [facility] [address] 10/01/2024 2:00 PM EST Cardiac Studies Cardiac Studies, [facility] [address] [facility] [place] [address] 12/05/2024 10:00 AM EST Cardiac Studies Cardiology, [facility] [address] [facility] [place] [address] [place] [address] [place] [address] 12/20/2024 10:30 AM EST Office Visit Cardiology, [facility] [address] [place] [address] Dayton Momin PA-C [address] [place] [address] 05/14/2025 10:00 AM EDT Nurse Only Ancillary Department, [facility]ina [place] [address] [facility] [place] [address] [place], Nurse Annual Wellness [address] [facility] [place] [address] Scheduled Orders Name Type Priority Associated Diagnoses Orde r Schedule BASIC METABOLIC PANEL Lab Routine Chronic diastolic heart failure (HCC) Expected: 10/01/2024, Expires: 09/02/2025 Scheduled Procedures Name Priority Associated Diagnoses Date/Ti me COLONOSCOPY FLEXIBLE PROXIMA L DIAGNOSTIC Recall History of colonic polyps Health Maintenance Due Date Last Done Comments Colonoscopy 02/07/2022 02/07/2019, 01/21, 03/18/2010 COVID-19 Vaccine ( season) 2024 06/22/2021, 05/08/2021 HbA1c 11/24/2024 05/24/2024, 05/2024, 07/25/2023, Additional history exists B-12 01/28/2025 01/29/2024, 01/21, 07/29/2022, Additional history exists CKD PHOS USE SMARTSET 18905 01/28/20250 05/2024, 02/01/2023, 07/29/2022, Additional history exists GFR 03/02/2025 09/02/2024, 06/23, 05/24/2024, Additional history exists Diabetic Foot Exam 04/23/2025 04/23/2024, 1 , 07/26/2021, Additional history exists Adult Wellness Visit 05/08/2025 05/08/2024, 05/05/20 23 Depression Screening 05/08/2025 05/08/2024 Albumin/Creatinine Ratio 05/24/2025 024, 07/25/2023, 02/01/2023, Additional history exists Diabetic Eye Exam 06/17/2025 06/17/2024, , 12/01/2023, Additional history exists CKD HGB USE SMARTSET 42689 09/02/202509/02, 01/29/2024, 01/29/2024, Additional history exists DXA Scan 06/04/2026 06/04/2024, 02/20, 03/01/2022, Additional history exists Pneumococcal Vaccine: 65+ Years Completed 05/08/2018, 08/12/2016, 07/20/2005 VITAMIN D LEVEL ONCE IN A LIFETIME-USE SMARTSET# [id number] Completed 07/03/2024, 08/28/2008, 04/07/2008, Additional history exists [...] as of this encounter Visit Diagnoses Diagnosis Chronic diastolic heart failure (HCC)- Primary Chronic diastolic heart failure documented in this encounter Advance Directives * No Code Status (Latest Code Status on File) Date Activated Date Inactivated Comments 01/11/2005 2:56 PM 01/11/2005 3:56 PM Care Teams Biochemist Relationship Specialty Start Date End Date Pete Ambriz MD [address] [place] [address] PCP - General Internal Medicine 05/08/24 documented as of this encounter
--- OUTSIDE RECORDS SUMMARY | 2024-10-24 23:38 | External Medical Summary | Summary of Care ---
Author Name Unknown Organization [facility] Address [address] [place] [address] Phone [phone] Care Team Providers Care Machinist General Name Role Phone Pete Ambriz MD Primary Care Provider [phone] Reason for Visit * Reason Comments Follow Up Pt here for a 2 week follow up Encounter Details Date Type Department Care Team (Late st Contact Info) Description 09/09/2024 12:20 PM EST Office Visit [facility] [address] [place] [address] Pete Ambriz MD [address] [place] [address] Type 2 diabetes mellitus with stage 3a chronic kidney disease, with long-term current use of insulin (HCC)*; Type 2 diabetes mellitus with peripheral artery disease (HCC); Type 2 diabetes mellitus with hemoglobin A1c goal of 7.0%-8.0% (HCC); Persistent atrial fibrillation ([facility]); Cardiac pacemaker in situ; Hypertensive heart and kidney disease with chronic diastolic congestive heart failure and stage 3a chronic kidney disease (HCC); Patient cannot afford medications; Pulmonary hypertension (HCC) Allergies Active Allergy Reactions Criticality Noted [...] with hemoglobin A1c goal of 7.0%-8.0% ([facility]) Use to inject basaglar once daily. 100 [...] ion management encounter,Aortocor onary bypass status,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),residential current use of anticoagulant therapy TAKE 1/2 TO 1 TABLET BY MOUTH ONCE DAILY DIRECTED BY [facility] 90 Tablet 3 4 Active metFORMIN HCl ER 500 MG Oral Tablet Extended Release 24 Hour (Glucophage XR)Indications:Typ e 2 diabetes mellitus with hemoglobin A1c goal of 7.0%-8.0% ([facility]) TAKE 2 TABLETS BY MOUTH DAILY WITH MEALS Patient takes one once per day 4 Active Repaglinide 1 MG Oral Tablet (Prandin)Indicatio ns:Type 2 diabetes mellitus with hemoglobin A1c goal of 7.0%-8.0% ([facility]) Take 1 Tablet by mouth in the [...] (Lasix)Indications :Heart failure, diastolic, with acute decompensation ([facility]) Take 2 Tablets by mouth in the morning. 180 Tablet 3 4 Active Empagliflozin 25 MG Oral Tablet (Jardiance) Take 1 Tablet by mouth in the morning. 90 Tablet 3 09/03/2024 11:30 AM EST 4 Active Insulin Glargine Solostar 100 UNIT/ML Subcutaneous Solution Pen-injector (Basaglar Melvin)Indication s:Type 2 diabetes mellitus with hemoglobin A1c [...] macular edema, left eye 12/28/2020 Atherosclerosis of council co ronary artery of council heart without angina pectoris 12/19/2019 Persistent atrial fibrillation 11/28/2019 HTN, goal below 130/80 04/26/2019 Type 2 diabetes mellitus with diabetic neuropath y 02/11/2019 Chronic diarrhea 05/14/2010 Type 2 diabetes mellitus wit h hemoglobin A1c goal of 7.0%-8.0% 01/08/2010 Overview (02/18/2016): ICD-10 update of inactive term DYSLIPIDEMIA, GOAL LDL BELOW 70 10/12/2009 Overview (10/12/2009): Per Lipid Taxonomy. 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 ICD-10 update of inactive term ADVANCE DIRECTIVE INFORMATION 09/27/2007 07/26/2021 Overview (03/14/2006): Yes-copy on file Carpal tunnel syndrome 04/14/200404/01 Atherosclerosis of council co ronary artery of council heart without angina pectoris 04/14/2004 Overview (01/06/2020): [...] mRNA, LNP-s, No Pre serve, 2-Dose Series ([employer]) 06/22/2021,05/08/2021 Pneumococcal Conjugate Vacc, 13 Valent (Prevnar) [...] Sign Reading Time Taken Comments Blood Pressure 122/60 09/09/2024 12:31 PM EST Pulse 64 09/09/2024 12:31 PM EST Temperature 36.8 C (98.2 F) 09/09/2024 12:[address] Respiratory Rate 18 09/09/2024 12:31 PM EST Oxygen Saturation 97% 09/09/2024 12:31 PM EST Inhaled Oxygen Concentration - - Weight 72.6 kg (160 lb) 09/09/2024 12:31 PM EST Height - - Body Mass Index 31.25 07/23/2024 10:28 AM EDT documented in this encounter Progress Notes * Pete Ambriz MD - 09/09/2024 12:32 PM EST Subjective Tootie Almanza is a 84 year old female. 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 Vitamin D deficiency DYSLIPIDEMIA, GOAL LDL BELOW 70 Type 2 diabetes mellitus with hemoglobin A1c goal of 7.0%-8.0% ([facility]) Chronic diarrhea Cardiac pacemaker in situ Pulmonary hypertension (HCC) DISH (diffuse idiopathic skeletal hyperostosis) Type 2 diabetes mellitus with diabetic neuropathy ([facility]) HTN, goal below 130/80 Persistent atrial fibrillation ([facility]) Atherosclerosis of council coronary artery of council heart without angina pectoris Age-related osteoporosis without current pathological fracture Type 2 diabetes mellitus with mild nonproliferative diabetic retinopathy without macular edema, left eye ([facility]) Chronic kidney disease, stage 3a ([facility]) 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, with long-term current use of insulin ([facility]) Hypertensive heart and kidney disease with chronic diastolic congestive heart failure and stage 3a chronic kidney disease ([facility]) Type 2 diabetes mellitus with peripheral artery disease ([facility]) Type 2 diabetes mellitus with stage 3a chronic kidney disease, with long-term current use of insulin ([facility]) Sebaceous cyst Chronic rhinitis Patient cannot afford [...] BY MOUTH TWICE DAILY 180 Tablet 3 [facility] Oral Capsule Take by mouth. [...] 1 TABLE[facility] Tablet 3 metFORMIN HCl ER [...] Glargine Solostar 100 UNIT/ML Subcutaneous Solution Pen-injector ([employer]aglar KwikPen) Inject 25 Units under the skin daily. 30 mL 4 Potassium Gluconate 595 (99 K) MG Oral Tablet Take by mouth daily. (Patient not taking: Reported on09/09/2024) Acetaminophen ER 650 MG Oral Tablet Extended Release (Tylenol 8 Hour Arthritis Pain) Take 1 Tablet by mouth every 8 hours as needed. Vitamin E 180 MG (400 UNIT) Oral Capsule Take 1 Capsule by mouth in the morning. Pt unsure of dose/strength. (Patient not taking: Reported on 09/09/2024) Current Facility-Administered Medications Medication Dose Route Frequency [...] performed by Trent Cesar MD at [facility]COPY [facility] CORONARY ANGIOGRAPHY W/LEFT HEART CATH 02/03/2012 CORONARY ANGIOGRAPHY W/LEFT HEART CATH performed by LAWRENCE GODINEZ at [facility]GD, FLEXIBLE, DIAGNOSTIC 02/17/2022 gastritis / [facility] Right 08/31/2022 shoulder abscess drained in office by Dr Channing Cedeno INJECT DX/THER SUBSTANCE INTERLAMINAR LUMBAR/SACRAL W IMAGE GUIDE 01/03/2022 INJECTION SPINE LUMBAR OR SACRAL performed by Abelardo Valdes DO at OR [facility] INSERT/REPLACE PACEMAKER,ATRIAL/VENTRICULAR 10/03/2007 dual pacer medtronic [id number] MISCELLANEOUS ORDER ([facility] ONLY) 3 X D&Cs, 1963, 1971 glenis NUC MED-BILIARY CCK STIMULATION 05/07/2010 ejection fraction 81% REMOVAL OF RUPTURED APPENDIX 01/1993 Appendectomy, Rupt Appendx+Abscess SACROILIAC JOINT INJECT W/GUIDANCE 11/11/2021 INJECTION SACROILIAC JOINT performed by Abelardo Valdes DO at OR [facility] SHOULDER SUBQ TUMOR REMOVAL, UNDER 3 CM Right 10/04/2022 EXCISION SOFT TISSUE TUMOR SHOULDER SUBCUTANEOUS performed by Channing Cedeno MD at OR [facility] SURGICAL PROCEDURE ONLY Right 10/04/2022 Excision of [...] Stability Do you currently live in a chcf or have no steady place to sleep [...] - for ages0-17 years): Not on file Objective There were no vitals taken for this visit. ASSESSMENT/PLAN: Type 2 diabetes mellitus with stage 3a chronic kidney disease, with long-term current use of insulin (HCC) (Primary) Type 2 diabetes mellitus with peripheral artery disease (HCC) Type 2 diabetes mellitus with hemoglobin A1c goal of 7.0%-8.0% (HCC) Persistent atrial fibrillation (HCC) Cardiac pacemaker in situ Hypertensive heart and kidney disease with chronic diastolic congestive heart failure and stage 3a chronic kidney disease (HCC) Patient cannot afford medications Pulmonary hypertension (HCC) Pete Ambriz MD documented in this encounter Nursing Notes * Lorenza Fonseca LPN - 09/09/2024 12:20 PM EST Chief Complaint Patient presents with Follow Up Pt here for a 2 week follow up Please verify the dose of the metformin. Pt would like it to read take 1 tablet twice daily. NOT 2 tablets at the same time. Pt is not taking her potassium due to the levels being good. documented in this encounter Plan of Treatment Upcoming Encounters Date Type Department Care Team (Late st Contact Info) Description 09/13/2024 10:40 AM EST [facility] [address] [facility] [address] Pete Ambriz MD [address] [place] [facility] [address] 10/01/2024 10:00 AM EST Office Visit Pharmacy, [place] [address] [facility] [address] [facility] [address] [facility], [place] [address] 10/01/2024 10:30 AM EST Anticoagulation Pharmacy, [place] [address] [facility], [place] [address] [facility] [address] [facility] [facility], [place] [address] 10/01/2024 2:00 PM EST Cardiac Studies Cardiac Studies, [facility] [address] [facility] [place] [address] 12/05/2024 10:00 AM EST Cardiac Studies Cardiology, [facility] [address] [facility] [place] [address] [facility] [address] [facility] [place] [address] 12/20/2024 10:30 AM EST [facility] [place] [address] [place], [facility] [address] [place] [address] 05/14/2025 10:00 AM EDT Nurse Only Ancillary Department, [place] [address] [facility] [address] [place] [facility] [address] [facility] [address] Scheduled Procedures Name Priority Associated Diagnoses Date/Ti me COLONOSCOPY FLEXIBLE PROXIMA L DIAGNOSTIC Recall History of colonic polyps Health Maintenance Due Date Last Done Comments Colonoscopy 02/07/2022 02/07/2019, 01/21, 03/18/2010 COVID-19 Vaccine ( season) 2024 06/22/2021, 05/08/2021 HbA1c 11/24/2024 05/24/2024, 05/2024, 07/25/2023, Additional history exists B-12 01/28/2025 01/29/2024, 01/21, 07/29/2022, Additional history exists CKD PHOS USE SMARTSET 08848 01/28/2025 040 05/2024, 02/01/2023, 07/29/2022, Additional history exists GFR 03/02/2025 09/02/2024, 06/23, 05/24/2024, Additional history exists Diabetic Foot Exam 04/23/2025 04/23/2024, 1 , 07/26/2021, Additional history exists Adult Wellness Visit 05/08/2025 05/08/2024, 05/05/20 23 Depression Screening 05/08/2025 05/08/2024 Albumin/Creatinine Ratio 05/24/2025 08 024, 07/25/2023, 02/01/2023, Additional history exists Diabetic Eye Exam 06/17/2025 06/17/2024, , 12/01/2023, Additional history exists CKD HGB USE SMARTSET 81412 09/02/202509/02, 01/29/2024, 01/29/2024, Additional history exists DXA Scan 06/04/2026 06/04/2024, 02/20, 03/01/2022, Additional history exists Pneumococcal Vaccine: 65+ Years Completed 05/08/2018, 08/12/2016, 07/20/2005 VITAMIN D LEVEL ONCE IN A LIFETIME-USE SMARTSET# [id number] Completed 07/03/2024, 08/28/2008, 04/07/2008, Additional history exists [...] with hemoglobin A1c goal of 7.0%-8.0% (HCC) Persistent atrial fibrillation (HCC) 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 Cardiac pacemaker in situ Hypertensive heart and kidney disease with chronic diastolic congestive heart failure and stage 3a chronic kidney disease (HCC) Patient cannot afford medications Inadequate material resources Pulmonary hypertension (HCC) Other chronic pulmonary heart diseases documented in this encounter Advance Directives * No Code Status (Latest Code Status on File) Date Activated Date Inactivated Comments 01/11/2005 2:56 PM 01/11/2005 3:56 PM Care Teams Machinist General Relationship Specialty Start Date End Date Pete Ambriz MD [address] [place] [address] PCP - General Internal Medicine 05/08/24 documented as of this encounter
--- OUTSIDE RECORDS SUMMARY | 2024-10-24 23:38 | External Medical Summary | Summary of Care ---
Author Name Unknown Organization [facility] Address [address] [facility] [place] [address] Phone [phone] Care Team Providers Care Esol Instructor Name Role Phone Pete Ambriz MD Primary Care Provider [phone] Encounter Details Date Type Department Care Team (Late st Contact Info) Description 08/29/2024 Population Health External Data Unspecified Department Allergies Active Allergy Reactions Criticality Noted Date Comments Cephalexin Unknown 09/12/2002 Lisinopril 12/07/2018 Cough Oxycodone 12/04/2003 nausea, stomach pains Tetanus Toxoid 01/28/2009 Local reaction, fever documented as of this encounter (statuses as of 09/05/2024) Medications Vitamin D 50 MCG (1999) Oral CapsuleIndicatio ns:Supplement Take 5,000 Units by mouth at bedtime. Active B-12 500 MCG Oral TabletIndication s:Supplement Take by mouth 1 Tablet daily . Active Insulin Pen Needle 29G X 12MM (B/D Ultrafine)Indica tions:Type 2 diabetes mellitus with hemoglobin A1c goal of 7.0%-8.0% ([facility]) Use to inject basaglar once daily. 100 Each 3 08/31/20 23 Active Potassium Gluconate 595 (99 K) MG Oral Tablet Take by mouth daily. Active Insulin Glargine Solostar 100 UNIT/ML Subcutaneous Solution Pen-injector (Basaglar KwikPen)Indicati ons:Type 2 diabetes mellitus with hemoglobin A1c goal of 7.0%-8.0% (HCC) Inject 30 Units under the skin daily. 30 mL 3 09/04/20 23 Active Additional Information Patient taking differently: 25 [...] each nostril in the morning. 16 g 04/23/20 24 Active Montelukast Sodium 10 MG Oral Tablet (Singulair) Take 1 Tablet by mouth in the morning. 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 TAKE 1/2 TO 1 TABLET BY MOUTH ONCE DAILY DIRECTED BY [facility]IC 90 Tablet 3 05/21/20 24 Active metFORMIN HCl ER 500 MG Oral Tablet Extended Release 24 Hour (Glucophage XR)Indications:T ype 2 diabetes mellitus with hemoglobin A1c goal of 7.0%-8.0% ([facility]) TAKE 2 TABLETS BY MOUTH DAILY WITH MEALS Patient takes one once per day 05/27/20 24 Active Repaglinide 1 MG Oral Tablet (Prandin)Indicat ions:Type 2 diabetes mellitus with hemoglobin A1c goal of 7.0%-8.0% ([facility]) Take 1 Tablet by mouth in the [...] Active Benzonatate 100 MG Oral Capsule (Tessalon Perlaustin)Indicatio ns:Bronchitis, complicated TAKE 1 CAPSULE BY MOUTH 3 TIMES DAILY NEEDED FOR COUGH. DO NOT CUT, CRUSH OR CHEW 50 Capsule 1 07/31/20 24 Active Albuterol Sulfate HFA 108 (90 Base) MCG/ACT Inhalation Aerosol SolutionIndicati ons:Bronchitis, complicated INHALE TWO PUFFS BY MOUTH EVERY 6 HOURS NEEDED FOR WHEEZING OR COUGH 8.5 g 1 08/15/20 24 Active Hospital, Clinic, or Other Facility Administered Medication Ordered Dose Route Frequency Start Date End Date Status potassium chloride ER tab 10 mEqIndications:Acute on chronic diastolic congestive heart failure (HCC) 10 mEq OR Daily(AM) 12/24/2019 Activ e documented as of this encounter (statuses as of 09/05/2024) Active Problems Problem Noted Date Diagnosed Date [...] macular edema, left eye 12/28/2020 Atherosclerosis of [place] co 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 Vitamin D deficiency 12/12/2007 long-term current use of anticoagulant therapy 0 05/27/2005 Overview (07/24/2017): ICD-10 update of inactive term Aortocoronary bypass status 10/17/2002 NONTOX MULTINODUL GOITER Cardiac pacemaker in situ Overview (04/27/2011): medtronic dual chamber for tachybrady Pulmonary hypertension DISH (diffuse idiopathic skeletal hyperostosis) documented as of this encounter (statuses as of 09/05/2024) Resolved Problems Problem Noted Date Diagnosed Date [...] Nummular eczema 09/06/2013 07/26/2021 [employer] Other*[id number] 02/03/2012 11/29/2016 Overview (02/03/2012): Study Titile: [employer] Markers for Patients with Cardiovascular Disease Project # [id number] PI: Merary Rivera MD Please call [phone] with study related questions Irritable bowel syndrome 05/14/201001/2021 Type 2 diabetes mellitus wit h hemoglobin A1c goal of less than 7.0% 08/06/2009 01/08/2010 Overview (02/16/2016): Modified per Diabetes protocol #14. ICD-10 update of inactive term ADVANCE DIRECTIVE INFORMATION 09/27/2007 07/26/2021 Overview (03/14/2006): Yes-copy on file Carpal tunnel syndrome 04/14/200404/01 Atherosclerosis of [place] co ronary artery of [place] heart without angina pectoris 04/14/2004 Overview (01/06/2020): [...] as of this encounter (statuses as of 09/05/2024) Immunizations Name Administration Dates Next Due COVID-19 [...] Description 09/09/2024 12:20 PM EST Office Visit [facility] [address] [place] [facility] [place] [address] Pete Ambriz MD [address] [facility] [facility], [place] [address] 10/01/2024 10:00 AM EST Office Visit Pharmacy, [place] [address] [place] [facility] [place] [address] [facility] [address] [place] [facility] [address] 10/01/2024 10:30 AM EST Anticoagulation Pharmacy, [place] [address] [place] [facility] [place] [address] [facility] [address] [place] [facility] [place] [address] 10/01/2024 2:00 PM EST Cardiac Studies Cardiac Studies, [facility] [address] [facility] [place] [address] 12/05/2024 10:00 AM EST Cardiac Studies Cardiology, [facility] [address] [facility] [place] [address] [facility] [address] [facility] [place] [address] 12/20/2024 10:30 AM EST [facility] [place] [address] [place] [facility] [address] [place] [address] 05/14/2025 10:00 AM EDT Nurse Only Ancillary Department, [place] [address] [facility] [place] [address] [place], Nurse Annual Wellness [address] [place] [address] Scheduled Procedures Name Priority Associated Diagnoses Date/Ti me COLONOSCOPY FLEXIBLE PROXIMA L DIAGNOSTIC Recall History of colonic polyps Health Maintenance Due Date Last Done Comments Colonoscopy 02/07/2022 02/07/2019, 01/21, 03/18/2010 COVID-19 Vaccine ( season) 2024 06/22/2021, 05/08/2021 HbA1c 11/24/2024 05/24/2024, 0 05/2024, 07/25/2023, Additional history exists B-12 01/28/2025 01/29/2024, 01/21, 07/29/2022, Additional history exists CKD PHOS USE SMARTSET 31245 01/28/20250 05/2024, 02/01/2023, 07/29/2022, Additional history exists GFR 03/02/2025 09/02/2024, 06/23, 05/24/2024, Additional history exists Diabetic Foot Exam 04/23/2025 04/23/2024, 1 , 07/26/2021, Additional history exists Adult Wellness Visit 05/08/2025 05/08/2024, 05/05/20 23 Depression Screening 05/08/2025 05/08/2024 Albumin/Creatinine Ratio 05/24/2025 08/2 024, 07/25/2023, 02/01/2023, Additional history exists Diabetic Eye Exam 06/17/2025 06/17/2024, , 12/01/2023, Additional history exists CKD HGB USE SMARTSET 87288 09/02/202509/02, 01/29/2024, 01/29/2024, Additional history exists DXA Scan 06/04/2026 06/04/2024, 02/20, 03/01/2022, Additional history exists Pneumococcal Vaccine: 65+ Years Completed 05/08/2018, 08/12/2016, 07/20/2005 VITAMIN D LEVEL ONCE IN A LIFETIME-USE SMARTSET# [id number] Completed 07/03/2024, 08/28/2008, 04/07/2008, Additional history exists [...] 2:56 PM 01/11/2005 3:56 PM Care Teams Esol Instructor Relationship Specialty Start Date End Date Pete Ambriz MD [address] [place] [address] PCP - General Internal Medicine 05/08/24 documented as of this encounter
--- OUTSIDE RECORDS SUMMARY | 2024-10-24 23:39 | External Medical Summary | Summary of Care ---
Author Name Unknown Organization [facility] Address [address] [place] [address] Phone [phone] Care Team Providers Care Track Sweeper Name Role Phone Pete Ambriz MD Primary Care Provider [phone] Reason for Referral * Evaluate & Treat - Unlimited Visits (Within 10 days (routine)) - Authorized Specialty Diagnoses / Procedures Referred By Contac t Referred To Contact Physical Therapy / Physical Medicine And Rehab Diagnoses Generalized OA Pete Ambriz MD [address] [place] [address] Referral ID Status Reason Start Date Expiration Date Visits Requested Visits Authorized [id number] Authorized Specialty Services Required 08/26/[phone] Question Answer Referral Priority Within 10 days (routine) Where should this appointment be scheduled? [facility] Reason for Visit * Reason Comments Follow Up Pt here today for fo llow up visit Acute Pt is also having tr ouble breathing and both hip pain, and pain radiating down right leg.Pt was treated in May. 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, with long-term current use of insulin (HCC); Persistent atrial fibrillation (HCC); half-way current use of anticoagulant therapy; Hypertensive heart and kidney disease with chronic diastolic congestive heart failure and stage 3a chronic kidney disease ([facility]); HTN, goal below 130/80; Chronic kidney disease, stage 3a ([facility]); Cardiac pacemaker in situ; Atherosclerosis of algaaciq coronary artery of algaaciq heart without angina pectoris; Type 2 diabetes mellitus with diabetic neuropathy, without long-term current use of insulin (HCC); Type 2 diabetes mellitus with peripheral artery disease ([facility]); Discomfort of left eye; Generalized OA Allergies Active Allergy Reactions Criticality Noted Date Comments Cephalexin Unknown 09/12/2002 Lisinopril 12/07/2018 Cough Oxycodone 12/04/2003 nausea, stomach pains Tetanus Toxoid 01/28/2009 Local reaction, fever documented as of this encounter (statuses as of 08/27/2024) Medications Medication Sig Dispensed Refills Start Date End Date Status Vitamin D 50 MCG (1999) Oral CapsuleIndication s:Supplement Take 5,000 Units by mouth at bedtime. Active B-12 500 MCG Oral TabletIndications :Supplement Take by mouth 1 Tablet daily . Active Furosemide 20 MG Oral Tablet (Lasix)Indication s:Heart failure, diastolic, with acute decompensation ([facility]) TAKE TWO TABLETS BY MOUTH ONCE DAILY ON MONDAY, MONDAY, AND MONDAY. TAKE 1 TAB ONCE DAILY ALL OTHER DAYS OF THE WEEK 135 Tablet 3 06/28/20 23 Active Insulin Pen Needle 29G X 12MM (B/D Ultrafine)Indicat ions:Type 2 diabetes mellitus with hemoglobin A1c goal of 7.0%-8.0% ([facility]) Use to inject basaglar once daily. 100 Each 3 08/31/20 23 Active Potassium Gluconate 595 (99 K) MG Oral Tablet Take by mouth daily. Active Insulin Glargine Solostar 100 UNIT/ML Subcutaneous Solution Pen-injector (Basaglar KwikPen)Indicatio ns:Type 2 diabetes mellitus with hemoglobin A1c goal of 7.0%-8.0% ([facility]) Inject 30 Units under the skin daily. 30 mL 3 09/04/20 23 Active Additional Information Patient taking differently: 25 UnitsSubcutaneous Daily(Non-Specified), Reported on 03/21/2024 Triamcinolone Acetonide 0.1 % External Cream (Aristocort)Indic ations:Rash and nonspecific skin eruption Apply topically to affected area 2 times a day. To affected area. 15 g 02/15/20 24 Active Rosuvastatin Calcium 20 MG [...] Joint Health Oral Capsule Take by mouth. Active Nitroglycerin 0.4 MG Sublingual Tablet Sublingual (Nitrostat)Indica tions:Aortocorona ry bypass status Place 1 Tablet under the tongue every 5 minutes as needed (up to three tablets). Up to 3 doses in 15 minutes. 12 Tablet 3 04/23/20 24 Active Fluticasone Propionate 50 MCG/ACT Nasal Suspension (Flonase) Administer 2 Sprays into each nostril in the morning. 16 g 04/23/20 24 Active Montelukast Sodium 10 MG Oral Tablet (Singulair) Take 1 Tablet by mouth in the morning. 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 DO NOT CUT, CRUSH OR CHEW 50 Capsule 1 07/31/20 24 Active Albuterol Sulfate HFA 108 (90 Base) MCG/ACT Inhalation Aerosol SolutionIndicatio ns:Bronchitis, complicated INHALE TWO PUFFS BY MOUTH EVERY 6 HOURS NEEDED FOR WHEEZING OR COUGH 8.5 g 1 08/15/20 24 Active Empagliflozin 25 MG Oral Tablet (Jardiance)Indica tions:Type 2 diabetes mellitus with hemoglobin A1c goal of 7.0%-8.0% (HCC) Take 1 Tablet by mouth in the morning. 100 Tablet 3 03/21/20 24 024 Discontinued Hospital, Clinic, or Other Facility Administered Medication Ordered Dose Route Frequency Start Date End Date Status potassium chloride ER tab 10 mEqIndications:Acute on chronic diastolic congestive heart failure (HCC) 10 mEq OR Daily(AM) 12/24/2019 Activ e documented as of this encounter (statuses as of 08/27/2024) Active Problems Problem Noted Date Diagnosed Date [...] macular edema, left eye 12/28/2020 Atherosclerosis of algaaciq co ronary artery of algaaciq heart without angina pectoris 12/19/2019 Persistent atrial fibrillation 11/28/2019 HTN, goal below 130/80 04/26/2019 Type 2 diabetes mellitus with diabetic neuropath y 02/11/2019 Chronic diarrhea 05/14/2010 Type 2 diabetes mellitus wit h hemoglobin A1c goal of 7.0%-8.0% 01/08/2010 Overview: ICD-10 update of inactive term DYSLIPIDEMIA, GOAL LDL BELOW 70 10/12/2009 Overview: Per Lipid Taxonomy. Vitamin D deficiency 12/12/2007 half-way current use of anticoagulant therapy 0 05/27/2005 Overview: ICD-10 update of inactive term Aortocoronary bypass status 10/17/2002 NONTOX MULTINODUL GOITER Cardiac pacemaker in situ Overview: medtronic dual chamber for tachybrady Pulmonary hypertension DISH (diffuse idiopathic skeletal hyperostosis) documented as of this encounter (statuses as of 08/27/2024) Resolved Problems Problem Noted Date Diagnosed Date Resolved Date Traumatic open wound of right lower leg 08/24/2021 07/18/2022 Overview: Noted healed 09/2021 Wound Center note Other psoriasis 07/26/2021 07/26/2021 Heart failure, diastolic, wi th acute decompensation 12/19/2019 05/24/2024 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 Viral URI with cough 07/08/2016 020 Bacterial pneumonia 05/18/2016 06/04/20 Overview: Acute. Nausea without vomiting 05/18/201605/23 Hyponatremia 05/18/2016 07/26/2021 Nummular eczema 09/06/2013 07/26/2021 [employer] Other*[id number] 02/03/2012 11/29/2016 Overview: Study Titile: Gen[employer] Markers for Patients with Cardiovascular Disease Project # [id number] PI: Merary Rivera MD Please call [phone] with study related questions Irritable bowel syndrome 05/14/201001/2021 Type 2 diabetes mellitus wit h hemoglobin A1c goal of less than 7.0% 08/06/2009 01/08/2010 Overview: Modified per Diabetes protocol #14. ICD-10 update of inactive term ADVANCE DIRECTIVE INFORMATION 09/27/2007 07/26/2021 Overview: Yes-copy on file Carpal tunnel syndrome 04/14/200404/01 Atherosclerosis of algaaciq co ronary artery of algaaciq heart without angina pectoris 04/14/2004 Overview: Duplicate. DM type 2, not at goal 04/14/200408/06 Overview: Modified per Diabetes protocol #14. Dyslipidemia, goal to be determined 04/14/2004 10/12/2009 Overview: Per Lipid Taxonomy. 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 10/17/2002 01/06/20 Overview: More specific code in use. 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 09/09/2002 11/28/19 08 Anticoagulation management encounter 09/09/2002 07/26/2021 PURE HYPERCHOLESTEROLEM 03/13/200103/2008 Lump or mass in breast 01/05/200107/26 DERMATITIS DUE TO PLANT 04/12/200003/2008 Edema 04/12/2000 11/28/2007 Type 2 diabetes mellitus wit h hemoglobin A1c goal of less than 7.0% 11/28/2007 Overview: ICD-10 update of inactive term Hx of CABG 06/04/2020 Overview: Duplicate. Cardiovascular arteriosclerosis 01/30/2019 Odd detrimental health beliefs 07/26/2021 documented as of this encounter (statuses as of 08/27/2024) Immunizations Name Administration Dates Next Due COVID-19 [...] Date Recorded PHQ Adult Total Score 0 05/05/2023 Hunger Vital Sign Answer Date Recorded Within [...] ages 0-17 years) Not on file 05/24/2024 Sex and Gender Information Value Date Recorded Sex Assigned at Female 12/02/2019 2:43 PM EST Gender Identity Female 12/02/2019 2:43 PM EST Sexual Orientation Straight 12/02/2019 2: 43 PM EST Job Start Date Occupation Industry Not on file Not on file Not on file documented as of this encounter Last Filed Vital Signs Vital Sign Reading Time Taken Comments Blood Pressure 108/52 08/26/2024 9:58 AM EST Pulse 61 08/26/2024 9:58 AM EST Temperature 36.1 C (96.9 F) 08/26/2024 9:58 AM ES T Respiratory Rate 22 08/26/2024 9:58 AM EST Oxygen Saturation 99% 08/26/2024 9:58 AM EST Inhaled Oxygen Concentration - - Weight 73.8 kg (162 lb 11.2 oz) 08/26/2024 9:58 AM EST Height - - Body Mass Index 31.78 07/23/2024 10:28 AM EDT documented in this encounter Patient Instructions * Patient Instructions* Pete Ambriz MD - 08/26/2024 10:36 AM EST Continue long acting daily insulin 25 units Keep metformin two tabs twice daily Prandin 1 mg three times per day Should check glucose 1-2 hours after eating, at least twice daily up to 3 times per day Pacemaker clinic documented in this encounter Progress Notes * Pete Ambriz MD - 08/26/2024 10:31 AM EST Subjective Tootie Almanza is a 84 year old female. Chief Complaint Patient presents with Follow Up Pt here today for follow up visit Acute Pt is also having trouble breathing and both hip pain, and pain radiating down right leg. Pt was treated in May. Pt states her breathing issues since day HPI: Here for routine check up 4 mo Uncontrolled type 2 DM, insulin dependence , 25 units She cut down metformin 1 tab bid Taking prandin Diet - poor, no exercise - generalized OA Used to see PT in the past but she does not practice Checks glucose only fasting morning Advised to check glucose 2-3 times after eating - declined CGM F/u with MTM Last hba1c 9 Eye check up , f/u with [facility] - will need to get record Known retinopathy, neuropathy , PAD Chronic rhinitis, cough occ, lung sounds clear Started taking singulair, also sprays Intermittent asthma, pul HTN + Hypertension , CKD, afib on coumadin , pacemaker, HL , CAD, Taking medication as prescribed, see med list. No medication side effects noted. Advised patient tokeep healthy life style, regular exercise with good diet, dana. low sodium diet. And also check BP at home too. 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 Vitamin D deficiency DYSLIPIDEMIA, GOAL LDL BELOW 70 Type 2 diabetes mellitus with hemoglobin A1c goal of 7.0%-8.0% ([facility]) Chronic diarrhea Cardiac pacemaker in situ Pulmonary hypertension ([facility]) DISH (diffuse idiopathic skeletal hyperostosis) Type 2 diabetes mellitus with diabetic neuropathy ([facility]) HTN, goal below 130/80 Persistent atrial fibrillation ([facility]) Atherosclerosis of algaaciq coronary artery of algaaciq heart without angina pectoris Age-related osteoporosis without current pathological fracture Type 2 diabetes mellitus with mild nonproliferative diabetic retinopathy without macular edema, left eye ([facility]) Chronic kidney disease, stage 3a ([facility]) 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, with long-term current use of insulin ([facility]) Hypertensive heart and kidney disease with chronic diastolic congestive heart failure and stage 3a chronic kidney disease ([facility]) Type 2 diabetes mellitus with peripheral artery disease ([facility]) Type 2 diabetes mellitus with stage 3a chronic kidney disease, without long-term current use of insulin ([facility]) Sebaceous cyst Chronic rhinitis Current Outpatient Medications Medication Sig Dispense Refill [...] 1 TABLET [facility] Tablet 3 metFORMIN HCl ER 500 [...] TWO 08/23/2002 Off-pump CAB x 2 -- [place] COLONOSCOPY, DIAGNOSTIC (RECTUM) 03/18/2010 normal, repeat in 10 years COLONOSCOPY, DIAGNOSTIC (RECTUM) N/A 02/07/2019 poor prep/biopsies show adenomatous polyps/recall 3 years/COLONOSCOPY FLEXIBLE PROXIMAL DIAGNOSTIC performed by Trent Cesar MD at ENDOSCOPY [facility] CORONARY ANGIOGRAPHY W/LEFT HEART CATH 02/03/2012 CORONARY ANGIOGRAPHY W/LEFT HEART CATH performed by LAWRENCE GODINEZ at [facility] EGD, FLEXIBLE, DIAGNOSTIC 02/17/2022 gastritis / [facility] Right 08/31/2022 shoulder abscess drained in office by Dr Channing Cedeno INJECT DX/THER SUBSTANCE INTERLAMINAR LUMBAR/SACRAL W IMAGE GUIDE 01/03/2022 INJECTION SPINE LUMBAR OR SACRAL performed by Abelardo Valdes DO at OR [facility] INSERT/REPLACE PACEMAKER,ATRIAL/VENTRICULAR 10/03/2007 dual pacer medtronic [id number] MISCELLANEOUS ORDER ([facility] ONLY) 3 X D&Cs, 1963, 1971 glenis NUC MED-BILIARY CCK STIMULATION 05/07/2010 ejection fraction 81% REMOVAL OF RUPTURED APPENDIX 01/1993 Appendectomy, Rupt Appendx+Abscess SACROILIAC JOINT INJECT W/GUIDANCE 11/11/2021 INJECTION SACROILIAC JOINT performed by Abelardo Valdes DO at OR [facility] SHOULDER SUBQ TUMOR REMOVAL, UNDER 3 CM Right 10/04/2022 EXCISION SOFT TISSUE TUMOR SHOULDER SUBCUTANEOUS performed by Channing Cedeno MD at OR [facility] SURGICAL PROCEDURE ONLY Right 10/04/2022 Excision [...] on file Social History Narrative Homemaker Social Determinants of Health Financial Resource Strain: Low Risk (05/24/2024) Financial [...] Stability Do you currently live in a detention or have no steady place to sleep [...] change. Eyes: Positive for visual disturbance. Respiratory: Negative for cough, chest tightness, shortness of breath and wheezing. Cardiovascular: Negative for chest pain, palpitations and leg swelling. Gastrointestinal: Negative for abdominal distention, abdominal pain, nausea and vomiting. Endocrine: Negative. Neurological: Positive for numbness. Negative for dizziness and light-headedness. Psychiatric/Behavioral: Negative for agitation and behavioral problems. Objective BP 108/52 | Pulse 61 | Temp 36.1 C (96.9 F) (Tympanic) | Resp 22 | Wt 73.8 kg (162 lb 11.2 oz) | SpO2 99% | BMI 31.78 kg/m | BSA 1.77 m Physical Exam Constitutional: General: She is not in acute distress. Appearance: Normal appearance. She is not ill-appearing, toxic-appearing or diaphoretic. HENT: Head: Normocephalic and atraumatic. Nose: Congestion present. Eyes: Extraocular Movements: Extraocular movements intact. Cardiovascular: Rate and Rhythm: Normal rate and regular rhythm. Pulses: Normal pulses. Heart sounds: Murmur heard. Comments: Pacemaker Pulmonary: Effort: Pulmonary effort is normal. No respiratory distress. Breath sounds: Normal breath sounds. No stridor. No wheezing, rhonchi or rales. Chest: Chest wall: No tenderness. Musculoskeletal: General: Tenderness present. Right lower leg: No edema. Left lower leg: No edema. Neurological: General: No focal deficit present. Mental Status: She is alert and oriented to person, place, and time. Cranial Nerves: No cranial nerve deficit. Psychiatric: Behavior: Behavior normal. 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, with long-term current use of insulin (HCC) Persistent atrial fibrillation (HCC) half-way current use of anticoagulant therapy Hypertensive heart and kidney disease with chronic diastolic congestive heart failure and stage 3a chronic kidney disease (HCC) HTN, goal below 130/80 Chronic kidney disease, stage 3a (HCC) Cardiac pacemaker in situ Atherosclerosis of algaaciq coronary artery of algaaciq heart without angina pectoris Type 2 diabetes mellitus with diabetic neuropathy, without long-term current use of insulin (HCC) Type 2 diabetes mellitus with peripheral artery disease (HCC) Discomfort of left eye Generalized OA - PHYSICAL THERAPY REFERRAL OP Follow Up: Return in about 2 weeks (around 09/09/2024) for Clinic Visit. | For: Clinic Visit | Check-out note: Refer pt --> Patient Instructions Continue long acting daily insulin 25 units Keep metformin two tabs twice daily Prandin 1 mg three times per day Should check glucose 1-2 hours after eating, at least twice daily up to 3 times per day Pacemaker clinic Spent 50 min Pete Ambriz MD documented in this encounter Nursing Notes * Lorenza Fonseca LPN - 08/26/2024 9:46 AM EST Chief Complaint Patient presents with Follow Up Pt here today for follow up visit Acute Pt is also having trouble breathing and both hip pain, and pain radiating down right leg. Pt was treated in May. Pt states her breathing issues since mothers day documented in this encounter Plan of Treatment Upcoming Encounters Date Type Department Care Team (Late st Contact Info) Description 09/02/2024 10:00 AM EST Office Visit Cardiology, [facility] [address] [place] [address] [place] Momin PA-C [address] [place] [address] 09/02/2024 10:00 AM EST Cardiac Studies Cardiology, [facility] [address] [facility] [place] [address] [place], Pacer Clinic [facility] [address] [place] [address] 09/09/2024 12:20 PM EST Office Visit [facility], [place] [address] [phone] Pete Ambriz MD [address] [facility] [address] [address] 10/01/2024 10:00 AM EST Office [facility], [facility] [address] [address] [facility] [address] [facility] [place] [address] 10/01/2024 10:30 AM EST Anticoagulation Pharmacy, Only [address] [facility], [place] [address] [facility] [address] [facility], [place] [address] 05/14/2025 10:00 AM EDT Nurse Only Ancillary Department, [place] [address] [facility] [address] Only, Nurse Annual Wellness [address] [facility], [place] [address] Scheduled Procedures Name Priority Associated Diagnoses Date/Ti me COLONOSCOPY FLEXIBLE PROXIMA L DIAGNOSTIC Recall History of colonic polyps Scheduled Referrals Name Type Priority Associated Diagnoses Orde r Schedule PHYSICAL THERAPY REFERRAL OP Referral Within 10 days (routine) Generalized OA Ordered: 08/26/2024 Health Maintenance Due Date Last Done Comments Colonoscopy 02/07/2022 02/07/2019, 01/21, 03/18/2010 COVID-19 Vaccine ( season) 2024 06/22/2021, 05/08/2021 HbA1c 11/24/2024 05/24/2024, 040 05/2024, 07/25/2023, Additional history exists GFR 12/31/2024 07/03/2024, 0811/2023, 12/27/2023, Additional history exists B-12 01/28/2025 01/29/2024, 01/21, 07/29/2022, Additional history exists CKD HGB USE SMARTSET 08621 01/28/202501/28, 01/29/2024, 12/27/2023, Additional history exists CKD PHOS USE SMARTSET [id number] 01/28/2025 040 05/2024, 02/01/2023, 07/29/2022, Additional history exists Diabetic Foot Exam 04/23/2025 04/23/2024, 1 , 07/26/2021, Additional history exists Adult Wellness Visit 05/08/2025 05/08/2024, 05/05/20 23 Depression Screening 05/08/2025 05/08/2024 Albumin/Creatinine Ratio 05/24/2025 08/ 024, 07/25/2023, 02/01/2023, Additional history exists Diabetic Eye Exam 06/17/2025 06/17/2024, , 12/01/2023, Additional history exists DXA Scan 06/04/2026 06/04/2024, 02/20, 03/01/2022, Additional history exists Pneumococcal Vaccine: 65+ Years Completed 05/08/2018, 08/12/2016, 07/20/2005 VITAMIN D LEVEL ONCE IN A LIFETIME-USE SMARTSET# [id number] Completed 07/03/2024, 08/28/2008, 04/07/2008, Additional history exists [...] disease, without long-term current use of insulin (HCC)- Primary 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, with long-term current use of insulin (HCC) Persistent atrial fibrillation (HCC) 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 Hypertensive heart and kidney disease with chronic diastolic congestive heart failure and stage 3a chronic kidney disease (HCC) HTN, goal below 130/80 Unspecified essential hypertension Chronic kidney disease, stage 3a (HCC) Cardiac pacemaker in situ Atherosclerosis of algaaciq coronary artery of algaaciq heart without angina pectoris Type 2 diabetes mellitus with diabetic neuropathy, without long-term current use of insulin (HCC) Type 2 diabetes mellitus with peripheral artery disease (HCC) Type II or unspecified type diabetes mellitus with peripheral circulatory disorders, not stated as uncontrolled Discomfort of left eye Generalized OA Generalized osteoarthrosis, unspecified site documented in this encounter Advance Directives * No Code Status (Latest Code Status on File) Date Activated Date Inactivated Comments 01/11/2005 2:56 PM 01/11/2005 3:56 PM Care Teams Track Sweeper Relationship Specialty Start Date End Date Pete Ambriz MD [address] [place] [address] PCP - General Internal Medicine 05/08/24 documented as of this encounter"
--- OUTSIDE RECORDS SUMMARY | 2024-10-24 23:39 | External Medical Summary | Summary of Care ---
Author Name Unknown Organization [facility] Address [address] [facility] [place] [address] Phone [phone] Care Team Providers Care Can Bander Operator Name Role Phone Pete Ambriz MD Primary Care Provider [phone] Reason for Visit * Reason Onset Date Comments Medication Problem 09/02/2024 Jardinace cos t Encounter Details Date Type Department Care Team (Late st Contact Info) Description 09/02/2024 Telephone Cardiology, 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 180 Tablet 3 024 Active Hospital, Clinic, or [...] macular edema, left eye 12/28/2020 Atherosclerosis of [place] co ronary artery of [place] heart without angina pectoris 12/19/2019 Persistent atrial fibrillation 11/28/2019 HTN, goal below 130/80 04/26/2019 Type 2 diabetes mellitus with diabetic neuropath y 02/11/2019 Chronic diarrhea 05/14/2010 Type 2 diabetes mellitus wit h hemoglobin A1c goal of 7.0%-8.0% 01/08/2010 Overview (02/18/2016): ICD-10 update of inactive term DYSLIPIDEMIA, GOAL LDL BELOW 70 10/12/2009 Overview (10/12/2009): Per Lipid Taxonomy. 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 ICD-10 update of inactive term ADVANCE DIRECTIVE INFORMATION 09/27/2007 07/26/2021 Overview (03/14/2006): Yes-copy on file Carpal tunnel syndrome 04/14/200404/01 Atherosclerosis of [place] co ronary artery of [place] heart without angina pectoris 04/14/2004 Overview (01/06/2020): [...] encounter Miscellaneous Notes * Telephone Encounter - Amanda Galeana RPh - 09/02/2024 11:18 AM EST Patient was previous on Jardiance 10 mg daily for Type 2 Diabetes and cardiomyopathy. Medication was stopped due to cost/pt entered doughnut hole. Ideally would like to restart Jardiance. Will send to [place] team to look for assistance (PACE versus HW angela ect) I let patient know to expect a phone call from the [place] team. Patient requesting use of mobile [phone] (M) and speak with spouse Trent. If approved, will be sending Jard[place] to [facility]. Pt declined to have other medications sent to O Amanda Galeana Pharm D Clinical [facility] Pharmacist Cardiology 09/02/2024,11:19 AM documented in this encounter Plan of Treatment Upcoming Encounters Date Type Department Care Team (Latest Contact Info) Description 09/02/2024 12:10 PM EST [facility] 132 [facility] [place] [phone] Erin Chapman 132 [facility] [place] [address] SOB (shortness of breath) 09/09/2024 12:20 PM EST Office [facility] [address] [facility] [address] Pete [facility]riz [facility] [address] [facility] [address] 10/01/2024 10:00 AM EST Office Visit Pharmacy, [place] [address] [facility], [place] [address] [facility] [address] [place] [facility] [place] [address] 10/01/2024 10:30 AM EST Anticoagulation Pharmacy, [place] [address] [facility], [place] [address] [facility] [address] [facility], [place] [address] 10/01/2024 2:00 PM EST Cardiac Studies Cardiac Studies, [facility] [address] [facility] [address] 12/05/2024 10:00 AM EST Cardiac Studies Cardiology, [facility] [address] [facility] [address] Billy [facility] 132 [facility] [place] [address] 12/20/2024 10:30 AM EST Office Visit Cardiology, [facility] [address] [facility] [place] [address] [place] Momin, PACrystalC 132 [facility] [address] 05/14/2025 10:00 AM EDT Nurse Only Ancillary Department, [address] [facility] [place] [address] [place] Nurse Annual Wellness [address] [facility], [place] [address] Scheduled Procedures Name Priority Associated Diagnoses Date/Ti me COLONOSCOPY FLEXIBLE PROXIMA L DIAGNOSTIC Recall History of colonic polyps Health Maintenance Due Date Last Done Comments Colonoscopy 02/07/2022 02/07/2019, 01/21, 03/18/2010 COVID-19 Vaccine ( season) 2024 06/22/2021, 05/08/2021 HbA1c 11/24/2024 05/24/2024, 04/0 05/2024, 07/25/2023, Additional history exists GFR 12/31/2024 07/03/2024, 080 11/2023, 12/27/2023, Additional history exists B-12 01/28/2025 01/29/2024, 01/21, 07/29/2022, Additional history exists CKD HGB USE SMARTSET 50571 01/28/202501/28, 01/29/2024, 12/27/2023, Additional history exists CKD PHOS USE SMARTSET 72419 01/28/2025 04/0 05/2024, 02/01/2023, 07/29/2022, Additional history exists Diabetic [...] D LEVEL ONCE IN A LIFETIME-USE SMARTSET# [id number] Completed 07/03/2024, 08/28/2008, 04/07/2008, Additional history exists [...] 2:56 PM 01/11/2005 3:56 PM Care Teams Can Bander Operator Relationship Specialty Start Date End Date Pete Ambriz MD [address] [place] [address] PCP - General Internal Medicine 05/08/24 documented as of this encounter
--- OUTSIDE RECORDS SUMMARY | 2024-10-24 23:39 | External Medical Summary | Summary of Care ---
Author Name Unknown Organization [facility] Address [address] [facility] [address] Phone [phone] Care Team Providers Care Door To Door Selling Distributor Name Role Phone Pete Ambriz MD Primary Care Provider [phone] Reason for Visit * Reason Comments Outpatient Testing Encounter Details Date Type Department Care Team (Late st Contact Info) Description 09/02/2024 12:10 PM EST Laboratory Laboratory, [facility] [address] [facility] [place] [phone] [facility] 132 [place] [address] SOB (shortness of breath) Allergies Active Allergy Reactions Criticality Noted Date [...] with hemoglobin A1c goal of 7.0%-8.0% ([facility]) Use to inject basaglar once [...] management encounter,Aortoco ronary bypass status,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),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 ICD-10 update of inactive term ADVANCE DIRECTIVE INFORMATION 09/27/2007 07/26/2021 Overview (03/14/2006): Yes-copy on file Carpal tunnel syndrome 04/14/200404/01 Atherosclerosis of [place] co ronary artery of [place] heart without angina pectoris 04/14/2004 Overview (01/06/2020): [...] 12:20 PM EST Office Visit Family Practice, [place] [address] [place] [facility] [place] [address] Pete Ambriz MD [address] [place] [facility] [place] [address] 10/01/2024 10:00 AM EST Office Visit Pharmacy, [place] [address] [place] [place] [address] [facility] [address] [place] [facility] [place] [address] 10/01/2024 10:30 AM EST Anticoagulation Pharmacy, [place] [address] [place] [facility] [place] [address] [facility] [address] [place] [facility] [place] [address] 10/01/2024 2:00 PM EST Cardiac Studies Cardiac Studies, [facility] [address] [facility] [address] 12/05/2024 10:00 AM EST Cardiac Studies Cardiology, [facility] 132 [facility] [place] [address] [facility] [address] [facility] [address] 12/20/2024 10:30 AM EST Office Visit Cardiology, [facility] [address] [place] [address] [place] Momin PA-C [address] [place] [address] 05/14/2025 10:00 AM EDT Nurse Only Ancillary Department, [place] [address] [place] [address] [place], Nurse Annual Wellness [address] [facility] [place] [address] Pending Results Name Type Priority Associated Diagnoses Date /Time COMPREHENSIVE METABOLIC PANEL Lab Routine SOB (shortness of breath) 09/02/2024 11:12 AM EST FERRITIN Lab Routine SOB (shortness of breath) 09/02/2024 11:12 AM EST IRON SCREEN, INCLUDING TIBC Lab Routine SOB (shortness of breath) 09/02/2024 11:12 AM EST Scheduled Procedures Name Priority Associated [...] Additional history exists CKD HGB USE SMARTSET 15856 01/28/202509/02, 01/29/2024, 01/29/2024, Additional history exists CKD PHOS USE SMARTSET 23468 01/28/2025 04/0 05/2024, 02/01/2023, 07/29/2022, Additional history [...] D LEVEL ONCE IN A LIFETIME-USE SMARTSET# [id number] Completed 07/03/2024, 08/28/2008, 04/07/2008, Additional history exists [...] Procedure Name Priority Date/Time Associated Diagnosis Comments CBC Routine 09/02/2024 11:12 AM EST SOB (shortness of breath) documented in this encounter Results * CBC (09/02/2024 11:12 AM EST) WBC [...] 11:38 AM EST LAB[facility]ATORY [place] 57-10 [facility] 30.6 27.0 - 34.0 pg [...] PA-C LAB BLOOD ORDERABLES Final Result LAB[facility]ATORY [facility] 57-10 132 [facility] [place] [address] documented in this encounter Visit Diagnoses Diagnosis SOB (shortness of breath) Shortness of breath documented in this encounter Advance Directives * No Code Status (Latest Code Status on File) Date Activated Date Inactivated Comments 01/11/2005 2:56 PM 01/11/2005 3:56 PM Care Teams Door To Door Selling Distributor Relationship Specialty Start Date End Date Pete Ambriz MD [address] [place] [address] PCP - General Internal Medicine 05/08/24 documented as of this encounter
--- OUTSIDE RECORDS SUMMARY | 2024-10-24 23:39 | External Medical Summary | Summary of Care ---
Author Name Unknown Organization [facility] Address [address] [facility] [place] [address] Phone [phone] Care Team Providers Care Burr Filer Name Role Phone Pete Ambriz MD Primary Care Provider Encounter Details Date Type Department Care Team (Late st Contact Info) Description 08/06/2024 Population Health External Data Unspecified Department Allergies Active Allergy Reactions Criticality Noted Date Comments Cephalexin Unknown 09/12/2002 Lisinopril 12/07/2018 Cough Oxycodone 12/04/2003 nausea, stomach pains Tetanus Toxoid 01/28/2009 Local reaction, fever documented as of this encounter (statuses as of 08/07/2024) Medications Medication Sig Dispensed Refills Start Date End Date Status Vitamin D 50 MCG (1999) Oral CapsuleIndications: Supplement Take 5,000 Units by mouth at bedtime. Active B-12 500 MCG Oral TabletIndications:S upplement Take by mouth 1 Tablet daily . Active Furosemide 20 MG Oral Tablet (Lasix)Indications: Heart failure, diastolic, with acute decompensation (HCC) TAKE TWO TABLETS BY MOUTH ONCE DAILY ON MONDAY, MONDAY, AND MONDAY. TAKE 1 TAB ONCE DAILY ALL OTHER DAYS OF THE WEEK 135 Tablet 3 3 Active Insulin Pen Needle 29G X 12MM (B/D Ultrafine)Indicatio ns:Type 2 diabetes mellitus with hemoglobin A1c goal of 7.0%-8.0% (HCC) Use to inject basaglar once daily. 100 Each 3 3 Active Potassium Gluconate 595 (99 K) MG Oral Tablet Take by mouth daily. Acti ve Insulin Glargine Solostar 100 UNIT/ML Subcutaneous Solution Pen-injector (Basagllauren Charles)Indications :Type 2 diabetes mellitus with hemoglobin A1c goal of 7.0%-8.0% (HCC) Inject 30 Units under the skin daily. 30 mL 3 3 Active Additional Information Patient taking differently: 25 UnitsSubcutaneous Daily(Non-Specified), Reported on 03/21/2024 Triamcinolone Acetonide 0.1 % External Cream (Aristocort)Indicat ions:Rash and nonspecific skin eruption Apply topically to affected area 2 times a day. To affected area. 15 g 5 4 Active Rosuvastatin Calcium 20 MG Oral Tablet (Crestor)Indication s:Dyslipidemia, goal LDL below 70 TAKE ONE TABLET BY MOUTH ONCE DAILY 90 Tablet 3 4 Active Losartan Potassium 100 MG Oral Tablet (Cozaar)Indications :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),Pulmonary hypertension (HCC) TAKE ONE TABLET BY MOUTH ONCE DAILY 90 Tablet 3 4 Active Empagliflozin 25 MG Oral Tablet (Jardiance)Indicati ons:Type 2 diabetes mellitus with hemoglobin A1c goal of 7.0%-8.0% (HCC) Take 1 Tablet by mouth in the morning. 100 Tablet 3 4 Active Metoprolol Tartrate 100 MG Oral Tablet (Lopressor)Indicati ons: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) TAKE 1 TABLET BY MOUTH TWICE DAILY 180 Tablet 3 4 Active Acetaminophen ER 650 MG Oral Tablet Extended Release (Tylenol 8 Hour Arthritis Pain) Take 1 Tablet by mouth every 8 hours as needed. Active [facility] Oral Capsule Take by mouth. Active Nitroglycerin 0.4 MG Sublingual Tablet Sublingual (Nitrostat)Indicati ons:Aortocoronary bypass status Place 1 Tablet under the tongue every 5 minutes as needed (up to three tablets). Up to 3 doses in 15 minutes. 12 Tablet 3 4 Active Additional Information Patient not taking.Reported on 06/26/2024 Fluticasone Propionate 50 MCG/ACT Nasal Suspension (Flonase) Administer 2 Sprays into each nostril in the morning. 16 g 5 4 Active Montelukast Sodium 10 MG Oral Tablet (Singulair) Take 1 Tablet by mouth in the morning. 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 TAKE 1/2 TO 1 TABLET BY MOUTH ONCE DAILY DIRECTED BY COUMADIN CLINIC 90 Tablet 3 4 Active metFORMIN HCl ER 500 MG Oral Tablet Extended Release 24 Hour (Glucophage XR)Indications:Type 2 diabetes mellitus with hemoglobin A1c goal of 7.0%-8.0% (HCC) TAKE 2 TABLETS BY MOUTH DAILY WITH MEALS Patient takes one once per day 4 Active Repaglinide 1 MG Oral Tablet (Prandin)Indication s:Type 2 diabetes mellitus with hemoglobin A1c goal of 7.0%-8.0% ([facility]) Take 1 Tablet by mouth [...] 30 MG Oral Capsule Delayed Release Particles (Cymbalta)Indicatio ns:Chronic pain syndrome TAKE 2 CAPS BY MOUTH ONCE DAILY IN THE MORNING 60 Capsule 5 4 Active Albuterol Sulfate HFA 108 (90 Base) MCG/ACT Inhalation Aerosol SolutionIndications :Bronchitis, complicated Inhale 2 Puffs by mouth every 6 hours as needed for Wheezing or Other (cough). 18 g 1 4 Active Benzonatate 100 MG Oral Capsule (Tessalon Perles)Indications: Bronchitis, complicated TAKE 1 CAPSULE BY MOUTH 3 TIMES DAILY NEEDED FOR COUGH. DO NOT CUT, CRUSH OR CHEW 50 Capsule 1 4 Active Hospital, Clinic, or Other Facility Administered Medication Ordered Dose Route Frequency Start Date End Date Status potassium chloride ER tab 10 mEqIndications:Acute on chronic diastolic congestive heart failure (HCC) 10 mEq OR Daily(AM) 12/24/2019 Activ e documented as of this encounter (statuses as of 08/07/2024) Active Problems Problem Noted Date Diagnosed Date [...] macular edema, left eye 12/28/2020 Atherosclerosis of [place] co ronary artery of [place] heart without angina pectoris 12/19/2019 Persistent atrial fibrillation 11/28/2019 HTN, goal below 130/80 04/26/2019 Type 2 diabetes mellitus with diabetic neuropath y 02/11/2019 Chronic diarrhea 05/14/2010 Type 2 diabetes mellitus wit h hemoglobin A1c goal of 7.0%-8.0% 01/08/2010 Overview: ICD-10 update of inactive term DYSLIPIDEMIA, GOAL LDL BELOW 70 10/12/2009 Overview: Per Lipid Taxonomy. 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 Pulmonary hypertension DISH (diffuse idiopathic skeletal hyperostosis) documented as of this encounter (statuses as of 08/07/2024) Resolved Problems Problem Noted Date Diagnosed Date [...] Nummular eczema 09/06/2013 07/26/2021 [employer] Other*[id number] 02/03/2012 11/29/2016 Overview: Study Titile: [employer] Markers for Patients with Cardiovascular Disease Project # [id number] PI: Merary Rivera MD Please call [phone] with study related questions Irritable bowel syndrome 05/14/201001/2021 Type 2 diabetes mellitus wit h hemoglobin A1c goal of less than 7.0% 08/06/2009 01/08/2010 Overview: Modified per Diabetes protocol #14. ICD-10 update of inactive term ADVANCE DIRECTIVE INFORMATION 09/27/2007 07/26/2021 Overview: Yes-copy on file Carpal tunnel syndrome 04/14/200404/01 Atherosclerosis of [place] co ronary artery of [place] heart without angina pectoris 04/14/2004 Overview: Duplicate. DM type 2, not at goal 04/14/200408/06 Overview: Modified per Diabetes protocol #14. Dyslipidemia, goal to be determined 04/14/2004 10/12/2009 Overview: Per Lipid Taxonomy. 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 10/17/2002 01/06/20 20 Overview: More specific code in use. Atrial [...] as of this encounter (statuses as of 08/07/2024) Immunizations Name Administration Dates Next Due COVID-19 [...] on file documented as of this encounter Plan of Treatment Upcoming Encounters Date Type Department Care Team (Late st Contact Info) Description 08/13/2024 11:00 AM EDT Anticoagulation Pharmacy, [address] [place] [address] [facility] [address] [facility], [place] [address] 08/26/2024 10:20 AM EST Office Visit Family [facility], [place] [address] [facility], [place] [address] Pete Ambriz MD [address] [facility], [place] [address] 09/02/2024 10:00 AM EST Office Visit Cardiology, [facility] [place] [address] [place] Momin PA-Taj [facility] [place] [address] 09/02/2024 10:00 AM EST Cardiac Studies Cardiology, [facility] [address] [facility], [place] [address] [facility] [address] [facility] [address] 10/01/2024 10:00 AM EST Office Visit Pharmacy, [place] [address] [facility], [place] [address] [facility] [address] [facility], [place] [address] 10/01/2024 10:30 AM EST Anticoagulation Pharmacy, [place] [address] [facility], [place] [address] [facility] [address] [facility], [place] [address] 05/14/2025 10:00 AM EDT Nurse Only Ancillary Department, [place] [address] [facility], [place] [address] [place], Nurse Annual Wellness [address] [place] [address] Scheduled Procedures Name Priority Associated Diagnoses Date/Ti me COLONOSCOPY FLEXIBLE PROXIMA L DIAGNOSTIC Recall History of colonic polyps Health Maintenance Due Date Last Done Comments Colonoscopy 02/07/2022 02/07/2019, 01/21, 03/18/2010 COVID-19 Vaccine ( season) 2024 06/22/2021, 05/08/2021 HbA1c 11/24/2024 05/24/2024, 0 05/2024, 07/25/2023, Additional history exists GFR 12/31/2024 07/03/2024, 11/2023, 12/27/2023, Additional history exists B-12 01/28/2025 01/29/2024, 01/21, 07/29/2022, Additional history exists CKD HGB USE SMARTSET 80192 01/28/202501/28, 01/29/2024, 12/27/2023, Additional history exists CKD PHOS USE SMARTSET 44653 01/28/2025 04/0 05/2024, 02/01/2023, 07/29/2022, Additional history [...] D LEVEL ONCE IN A LIFETIME-USE SMARTSET# [id number] Completed 07/03/2024, 08/28/2008, 04/07/2008, Additional history exists [...] 2:56 PM 01/11/2005 3:56 PM Care Teams Burr Filer Relationship Specialty Start Date End Date Pete Ambriz MD [address] [place] [address] PCP - General Internal Medicine 05/08/24 documented as of this encounter
--- OUTSIDE RECORDS SUMMARY | 2024-10-24 23:39 | External Medical Summary | Summary of Care ---
Author Name Unknown Organization [facility] Address [address] [place] [address] Phone [phone] Care Team Providers Care Process Control Specialist Name Role Phone Pete Ambriz MD Primary Care Provider [phone] Reason for Visit * Reason Comments Dosage Adjustment In Person (Anticoag Cl inic) Encounter Details Date Type Department Care Team (Latest Contact Info) Description 08/20/2024 9:10 AM EDT Anticoagulation Pharmacy, [address] [address] [facility] [address] [place] [address] Anticoagulation management encounter*; Persistent atrial fibrillation (HCC) Allergies Active Allergy Reactions Criticality Noted Date Comments Cephalexin Unknown 09/12/2002 Lisinopril 12/07/2018 Cough Oxycodone 12/04/2003 nausea, stomach pains Tetanus Toxoid 01/28/2009 Local reaction, fever documented as of this encounter (statuses as of 08/20/2024) Medications Medication Sig Dispensed Refills Start Date [...] Solostar 100 UNIT/ML Subcutaneous Solution Pen-injector (Basaglar KwikPen)Indications :Type 2 diabetes mellitus with hemoglobin A1c [...] on management encounter,Aortocoro nary bypass status,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),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 therapy TAKE 1/2 TO 1 TABLET BY MOUTH ONCE DAILY DIRECTED BY [facility] 90 Tablet 3 4 Active metFORMIN HCl ER 500 MG Oral Tablet Extended Release 24 Hour (Glucophage XR)Indications:Type 2 diabetes mellitus with hemoglobin A1c goal of 7.0%-8.0% ([facility]) TAKE 2 TABLETS BY MOUTH DAILY WITH MEALS Patient takes one once per day 4 Active Repaglinide 1 MG Oral Tablet (Prandin)Indication s:Type 2 diabetes mellitus with hemoglobin A1c goal of 7.0%-8.0% ([facility]) Take 1 Tablet by mouth in [...] Base) MCG/ACT Inhalation Aerosol SolutionIndications :Bronchitis, complicated INHALE TWO PUFFS BY MOUTH EVERY 6 HOURS NEEDED FOR WHEEZING OR COUGH 8.5 g 1 4 Active Hospital, Clinic, or Other Facility Administered Medication Ordered Dose Route Frequency Start Date End Date Status potassium chloride ER tab 10 mEqIndications:Acute on chronic diastolic congestive heart failure (HCC) 10 mEq OR Daily(AM) 12/24/2019 Activ e documented as of this encounter (statuses as of 08/20/2024) Active Problems Problem Noted Date Diagnosed Date [...] macular edema, left eye 12/28/2020 Atherosclerosis of [place] co ronary artery of [place] heart without angina pectoris 12/19/2019 Persistent atrial fibrillation 11/28/2019 HTN, goal below 130/80 04/26/2019 Type 2 diabetes mellitus with diabetic neuropath y 02/11/2019 Chronic diarrhea 05/14/2010 Type 2 diabetes mellitus wit h hemoglobin A1c goal of 7.0%-8.0% 01/08/2010 Overview: ICD-10 update of inactive term DYSLIPIDEMIA, GOAL LDL BELOW 70 10/12/2009 Overview: Per Lipid Taxonomy. 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 Pulmonary hypertension DISH (diffuse idiopathic skeletal hyperostosis) documented as of this encounter (statuses as of 08/20/2024) Resolved Problems Problem Noted Date Diagnosed Date [...] Nummular eczema 09/06/2013 07/26/2021 [employer] Other*[id number] 02/03/2012 11/29/2016 Overview: Study Titile: [employer] Markers for Patients with Cardiovascular Disease Project # [id number] PI: Merary Rivera MD Please call [phone] with study related questions Irritable bowel syndrome 05/14/201001/2021 Type 2 diabetes mellitus wit h hemoglobin A1c goal of less than 7.0% 08/06/2009 01/08/2010 Overview: Modified per Diabetes protocol #14. ICD-10 update of inactive term ADVANCE DIRECTIVE INFORMATION 09/27/2007 07/26/2021 Overview: Yes-copy on file Carpal tunnel syndrome 04/14/200404/01 Atherosclerosis of [place] co ronary artery of [place] heart without angina pectoris 04/14/2004 Overview: Duplicate. [...] as of this encounter (statuses as of 08/20/2024) Immunizations Name Administration Dates Next Due COVID-19 mRNA, LNP-s, No Pre serve, 2-Dose Series ([employer]) 06/22/2021,05/08/2021 Pneumococcal Conjugate Vacc, 13 Valent (Prevnar) [...] on file documented as of this encounter Progress Notes * Shania Novak RPh - 08/20/2024 9:21 AM EDT Medication Therapy Disease Management - Anticoagulation Patient: Tootie Almanza | : 1940 Subjective Contacts Contact Date/Time Type Contact Phone/Fax 08/13/2024 05:14 AM EDT Vendor (Outgoing) Tootie Almanza [phone] 08/17/2024 05:08 AM EDT Vendor (Outgoing) Melina Almanzaara Mike [phone] 08/19/2024 05:16 AM EDT Vendor (Outgoing) Tootie Almanza [phone] Patient-Reported Symptoms: Patient Findings Negatives: Signs/symptoms of thrombosis, Signs/symptoms of bleeding, Change in health, Change in alcohol use, Change in activity, Upcoming invasive procedure, Missed doses, Extra doses, Change in medications, Change in diet/appetite, Bruising Objective Current Warfarin Dose As of 08/20/2024 Warfarin maintenance plan: 2 mg (2 mg x 1) every Mon; 1 mg (2 mg x 0.5) all other days INR Result As of 08/20/2024 INR goal: 2.0-3.0 INR used for dosin.0 (08/20/2024) Assessment & Plan Warfarin Plan As of 08/20/2024 Full warfarin instructions: 2 mg every Mon; 1 mg all other days No change documented: Shania Novak RPh Next INR check: 10/02/2024 Repeat PT/INR in 6 week(s) Weekly dose: not changed Additional Dosing Information: I spent a total of 10-19 minutes (exact time 10 mins) on the date of service in preparation, delivery, and documentation of the care provided to Tootie Almanza excluding any time spent in the performance of separately billed services or time spent by another provider/QHP. Shania Novak RPh Clinical Pharmacist 08/20/2024, 9:21 AM documented in this encounter Plan of Treatment Upcoming Encounters Date Type Department Care Team (Late st Contact Info) Description 08/26/2024 10:20 AM EST Office Visit Family [facility], [place] [address] [address] [facility], [place] [address] Pete Ambriz MD [address] [facility] [address] 09/02/2024 10:00 AM EST Office Visit Cardiology, [facility] [address] [place] Momin PA-C [facility] [address] 09/02/2024 10:00 AM EST Cardiac Studies Cardiology, [facility] [address] [facility] [address] 10/01/2024 10:00 AM EST Office Visit Pharmacy, [place] [address] [address] [facility] [address] [facility] [address] [facility], [place] [address] 10/01/2024 10:30 AM EST Anticoagulation Pharmacy, [place] [address] [address] [facility] [address] [facility] [address] [facility], [place] [address] 05/14/2025 10:00 AM EDT Nurse Only Ancillary Department, [place] [address] [address] [facility] [address] [place], Nurse [facility] [address] [place], [place] [id number] Scheduled Procedures Name Priority Associated Diagnoses Date/Ti [...] Additional history exists CKD HGB USE SMARTSET 20294 01/28/202501/28, 01/29/2024, 12/27/2023, Additional history exists CKD PHOS USE SMARTSET 39962 01/28/20250 05/2024, 02/01/2023, 07/29/2022, Additional history exists Diabetic [...] D LEVEL ONCE IN A LIFETIME-USE SMARTSET# 05055 Completed 07/03/2024, 08/28/2008, 04/07/2008, Additional history exists [...] Comments INR FINGERSTICK, POINT OF CARE STAT 08/20/2024 9:23 AM EDT Persistent atrial fibrillation (HCC) Anticoagulation management encounter documented in this encounter Results * INR FINGERSTICK, POINT OF CARE (08/20/2024 9:23 AM EDT) Fingerstick INR 2.0 INR 9:25 AM EDT [facility] Blood 08/20/2024 9:23 AM EDT 08/20/2024 9:25 AM EDT Narrative [facility] 56- - 08/20/2024 9:25 AM EDT Therapeutic ranges for non-operative patients: Prophylaxsis/treatment of DVT: (Range:2.0-3.0) Treatment of pulmonary embolism:(Range:2.0-3.0) Prevention of systemic embolism from: -tissue heart valves -acute myocardial infarction -valvular heart disease -atrial fibrillation (Range: 2.0-3.0) Mechanical prosthetic valves: (Range: 2.5-3.5) Shania Novak [facility] POINT OF CARE TEST DOCKED DEVICE UNSOLICITED RESULTS [facility] [address] [place] [address] documented in this encounter Visit Diagnoses Diagnosis Anticoagulation management encounter- Primary Encounter for therapeutic drug monitoring Persistent atrial fibrillation (HCC) 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 documented in this encounter Advance Directives * No Code Status (Latest Code Status on File) Date Activated Date Inactivated Comments 01/11/2005 2:56 PM 01/11/2005 3:56 PM Care Teams Process Control Specialist Relationship Specialty Start Date End Date Pete Ambriz MD [address] [place] [address] PCP - General Internal Medicine 05/08/24 documented as of this encounter"
--- OUTSIDE RECORDS SUMMARY | 2024-10-24 23:39 | External Medical Summary ---
Author Name Unknown Address Unknown Organization : Laboratory Report Ordering Provider Test Date Status [place] 08/20/2024 09:23:13 Final Therapeutic ranges for non-o perative patients:
Prophylaxsis/treatment of DVT: (Range:2.0-3.0)
Treatment of pulmonary embolism:(Range:2.0-3.0)
Prevention of systemic embolism from:
-tissue heart valves
-acute myocardial infarction
-valvular heart disease
-atrial fibrillation
(Range: 2.0-3.0)
Mechanical prosthetic valves: (Range: 2.5-3.5) Observation Date Value Abnormality Reference (Units ) Status INR in Capillary blood by Coagulation assay 08/20/2024 09:23:13 2.0 (INR) Final Performing Location
--- OUTSIDE RECORDS SUMMARY | 2024-10-24 23:39 | External Medical Summary ---
Author Name Unknown Address Unknown Organization [id number]:[facility] [facility] [address] [place] [address] Laboratory Report Ordering Provider Test Date Status BEST FERMIN 09/02/2024 11:12:53 Final Observation Date Value Abnormality Reference (Units ) Status Iron 09/02/2024 11:12:53 67 33-151 (ug /dL) Final Iron-binding capacity 09/02/2024 11:12:53 388 250-425 (ug/dL) Final Transferrin Sat % 09/02/2024 11:12:53 17 15 -55 (%) Final Performing Location [facility] [place] [facility] [address] [place] [address]
--- OUTSIDE RECORDS SUMMARY | 2024-10-24 23:39 | External Medical Summary | Summary of Care ---
Author Name Unknown Organization [facility] Address [address] [facility] [place] [address] Phone [phone] Care Team Providers Care Customer Care Consultant Name Role Phone Pete Ambriz MD Primary Care Provider [phone] Reason for Visit * Reason Comments Cardiac Rehab Encounter Details Date Type Department Care Team (Late st Contact Info) Description 08/07/2024 9:00 AM EDT Telemedicine Cardiac Rehab [facility], Virtual [address] [place] [address] [place] [address] [facility] Virtual Cardiac Rehab [address] [place] [address] [place] [address] Aortocoronary bypass status* Allergies Active Allergy Reactions Criticality Noted Date Comments Cephalexin Unknown 09/12/2002 Lisinopril 12/07/2018 Cough Oxycodone 12/04/2003 nausea, stomach pains Tetanus Toxoid 01/28/2009 Local reaction, fever documented as of this encounter (statuses as of 08/16/2024) Medications Medication Sig Dispensed Refills Start Date [...] on management encounter,Aortocoro nary bypass status,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),assisted current use of anticoagulant therapy TAKE 1/2 [...] mellitus with hemoglobin A1c goal of 7.0%-8.0% ([facility]) Take 1 Tablet by mouth [...] as of this encounter (statuses as of 08/16/2024) Active Problems Problem Noted Date Diagnosed Date [...] macular edema, left eye 12/28/2020 Atherosclerosis of [place] co ronary artery of [place] heart without angina pectoris 12/19/2019 Persistent atrial fibrillation 11/28/2019 HTN, goal below 130/80 04/26/2019 Type 2 diabetes mellitus with diabetic neuropath y 02/11/2019 Chronic diarrhea 05/14/2010 Type 2 diabetes mellitus wit h hemoglobin A1c goal of 7.0%-8.0% 01/08/2010 Overview: ICD-10 update of inactive term DYSLIPIDEMIA, GOAL LDL BELOW 70 10/12/2009 Overview: Per Lipid Taxonomy. 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 Pulmonary hypertension DISH (diffuse idiopathic skeletal hyperostosis) documented as of this encounter (statuses as of 08/16/2024) Resolved Problems Problem Noted Date Diagnosed Date [...] Nummular eczema 09/06/2013 07/26/2021 [employer] Other*[id number] 02/03/2012 11/29/2016 Overview: Study Titile: [employer] Markers for Patients with Cardiovascular Disease Project # [id number] PI: Merary Rivera MD Please call [phone] with study related questions Irritable bowel syndrome 05/14/201001/2021 Type 2 diabetes mellitus wit h hemoglobin A1c goal of less than 7.0% 08/06/2009 01/08/2010 Overview: Modified per Diabetes protocol #14. ICD-10 update of inactive term ADVANCE DIRECTIVE INFORMATION 09/27/2007 07/26/2021 Overview: Yes-copy on file Carpal tunnel syndrome 04/14/200404/01 Atherosclerosis of [place] co ronary artery of [place] heart without angina pectoris 04/14/2004 Overview: Duplicate. [...] as of this encounter (statuses as of 08/16/2024) Immunizations Name Administration Dates Next Due COVID-19 [...] No 05/24/2024 Does the household have a presbyterian hospitallar source of income? (Household - for [...] as of this encounter Progress Notes * Hali De La Torre EPC - 08/16/2024 9:06 PM EDT Session Encounter: Patient is participating in [facility]'s Intensive Cardiac Rehab Program in partnership with [employer] is a specialized company that specializes in providing virtual cardiac rehab services. Session #53 completed. Please refer to scan document for session details. Session type: Exercise Individual Session duration: 35 minutes documented in this encounter Plan of Treatment Upcoming Encounters Date Type Department Care Team (Late st Contact Info) Description 08/20/2024 9:10 AM EDT [facility]tico[facility] Pharm[facility], [place] [address] [facility] [address] [place], [facility] [address] [facility] [address] 08/26/2024 10:20 AM EST Office Visit Family [facility], [place] [address] [address] [facility] [address] Pete Ambriz MD [address] [facility] [address] 09/02/2024 10:00 AM EST Office Visit Cardiology, [facility] 132 [facility] [place] [address] [place] Momin, PACrystalC 132 [facility] [place] [address] 09/02/2024 10:00 AM EST Cardiac Studies Cardiology, [facility] 132 [facility] [place] [address] [address] [facility] 132 [facility] [place] [address] 10/01/2024 10:00 AM EST Office Visit Pharmacy, [place] [address] [address] [facility] [address] [facility] [address] [facility], [place] [address] 10/01/2024 10:30 AM EST Anticoagulation Pharmacy, [place] [address] [facility], [place] [address] [facility] [address] [facility] [address] 05/14/2025 10:00 AM EDT Nurse Only Ancillary Department, [place] [address] [facility] [address] [place], Nurse [facility] [address] [facility] [address] Scheduled Orders Name Type Priority Associated Diagnoses Orde r Schedule CARDIAC REHAB,INTENSE W/EXERCISE,1 SESSION Procedures Routine Aortocoronary bypass status 36 Occurrences starting 08/16/2024 until 08/16/2025 Scheduled Procedures Name Priority Associated Diagnoses Date/Ti [...] Additional history exists CKD HGB USE SMARTSET 68909 01/28/202501/28, 01/29/2024, 12/27/2023, Additional history exists CKD PHOS USE SMARTSET 00357 01/28/2025 040 05/2024, 02/01/2023, 07/29/2022, Additional history [...] D LEVEL ONCE IN A LIFETIME-USE SMARTSET# 17851 Completed 07/03/2024, 08/28/2008, 04/07/2008, Additional history exists [...] as of this encounter Visit Diagnoses Diagnosis Aortocoronary bypass status- Primary Postsurgical aortocoronary bypass status documented in this encounter Advance Directives * No Code Status (Latest Code Status on File) Date Activated Date Inactivated Comments 01/11/2005 2:56 PM 01/11/2005 3:56 PM Care Teams Customer Care Consultant Relationship Specialty Start Date End Date Pete Ambriz MD [address] [place] [address] PCP - General Internal Medicine 05/08/24 documented as of this encounter
--- OUTSIDE RECORDS SUMMARY | 2024-10-24 23:39 | External Medical Summary | Summary of Care ---
Author Name Unknown Organization [facility] Address [address] [facility] [place] [address] Phone [phone] Care Team Providers Care Casting Machine Control Board Operator Name Role Phone Pete Ambriz MD Primary Care Provider [phone] Reason for Visit * Reason Comments Cardiac Rehab Encounter Details Date Type Department Care Team (Late st Contact Info) Description 08/05/2024 9:00 AM EDT Telemedicine Cardiac Rehab [facility], Virtual [address] [place] [address] [place] [address] [facility], Virtual Cardiac Rehab [address] [place] [address] [place] [address] Aortocoronary bypass status* Allergies Active Allergy Reactions [...] on management encounter,Aortocoro nary bypass status,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),residential current use of [...] mellitus with hemoglobin A1c goal of 7.0%-8.0% ([facility]) Take 1 Tablet by mouth in [...] macular edema, left eye 12/28/2020 Atherosclerosis of platinum co ronary artery of platinum heart without angina pectoris 12/19/2019 Persistent atrial fibrillation 11/28/2019 HTN, goal below 130/80 04/26/2019 Type 2 diabetes mellitus with diabetic neuropath y 02/11/2019 Chronic diarrhea 05/14/2010 Type 2 diabetes mellitus wit h hemoglobin A1c goal of 7.0%-8.0% 01/08/2010 Overview: ICD-10 update of inactive term DYSLIPIDEMIA, GOAL LDL BELOW 70 10/12/2009 Overview: Per Lipid Taxonomy. Vitamin D deficiency 12/12/2007 residential current use of anticoagulant therapy 0 05/27/2005 [...] Nummular eczema 09/06/2013 07/26/2021 [employer] Other*[id number] 02/03/2012 11/29/2016 Overview: Study Titile: [employer] Markers for Patients with Cardiovascular Disease Project # [id number] PI: Merary Rivera MD Please call [phone] with study related questions Irritable bowel syndrome 05/14/201001/2021 Type 2 diabetes mellitus wit h hemoglobin A1c goal of less than 7.0% 08/06/2009 01/08/2010 Overview: Modified per Diabetes protocol #14. ICD-10 update of inactive term ADVANCE DIRECTIVE INFORMATION 09/27/2007 07/26/2021 Overview: Yes-copy on file Carpal tunnel syndrome 04/14/200404/01 Atherosclerosis of platinum co ronary artery of platinum heart without angina pectoris 04/14/2004 Overview: Duplicate. [...] Hali De La Torre EPC - 08/16/2024 9:04 PM EDT Session Encounter: Patient is participating in [facility]'s Intensive Cardiac Rehab Program in partnership with [employer] is a specialized company that specializes in providing virtual cardiac rehab services. Session #52 completed. Please refer to scan document for session details. Session type: Exercise Individual Session duration: 35 minutes documented in this encounter Plan of Treatment Upcoming Encounters Date Type Department Care Team (Late st Contact Info) Description 08/20/2024 9:10 AM EDT Anticoagulation Pharmacy, [place] [address] [address] [facility] [address] [place], [facility] [address] [facility] [address] 08/26/2024 10:20 AM EST Office Visit Family [facility], [place] [address] [address] [facility] [phone] Pete Ambriz MD [address] [facility] [address] 09/02/2024 10:00 AM EST Office Visit Cardiology, [facility] 132 [facility] [place] [address] [place] Momin, PACrystalC 132 [facility] [place] [address] 09/02/2024 10:00 AM EST Cardiac Studies Cardiology, [facility] 132 [facility] [place] [address] Billy Barber [facility] 132 [facility] [place] [address] 10/01/2024 10:00 AM EST Office Visit Pharmacy, [place] [address] [address] [facility] [address] [facility] [address] [facility], [place] [address] 10/01/2024 10:30 AM EST Anticoagulation Pharmacy, [place] [address] [facility], [place] [address] [facility] [address] [facility] [address] 05/14/2025 10:00 AM EDT Nurse Only Ancillary Department, [place] [address] [facility] [address] [place], Nurse [facility] [address] [facility] [address] Scheduled Procedures Name Priority Associated Diagnoses Date/Ti [...] Additional history exists CKD HGB USE SMARTSET 44518 01/28/202501/28, 01/29/2024, 12/27/2023, Additional history exists CKD PHOS USE SMARTSET 33700 01/28/2025 04/0 05/2024, 02/01/2023, 07/29/2022, Additional history [...] D LEVEL ONCE IN A LIFETIME-USE SMARTSET# 86168 Completed 07/03/2024, 08/28/2008, 04/07/2008, Additional history exists [...] 2:56 PM 01/11/2005 3:56 PM Care Teams Casting Machine Control Board Operator Relationship Specialty Start Date End Date Pete Ambriz MD [address] [place] [place] [address] PCP - General Internal Medicine 05/08/24 documented as of this encounter
--- OUTSIDE RECORDS SUMMARY | 2024-10-24 23:39 | External Medical Summary ---
Author Name Unknown Address Unknown Organization K0G:[facility] [address] - [address] [place] [address] Laboratory Report Ordering Provider Test Date Status BEST FERMIN 09/02/2024 11:12:53 Final Observation Date Value Abnormality Reference (Units ) Status WBC, Total 09/02/2024 11:12:53 8.66 4.00-10.8 0 (K/uL) Final RBC 09/02/2024 11:12:53 4.22 3.85-5.15 (M/uL) Final Hemoglobin 09/02/2024 11:12:53 12.9 12.0-15.3 (g/dL) Final HCT 09/02/2024 11:12:53 39.7 36.0-45.2 (%) Final MCV 09/02/2024 11:12:53 94.1 81.5-97.5 (fL) Final MCH 09/02/2024 11:12:53 30.6 27.0-34.0 (pg) Final MCHC 09/02/2024 11:12:53 32.5 32.0-36.0 (g/dL) Final RDW 09/02/2024 11:12:53 15.6 11.5-15.5 (%) Final Platelets 09/02/2024 11:12:53 280 140-400 (K /uL) Final MPV 09/02/2024 11:12:53 9.6 6.6-11.1 ( fL) Final Performing Location [facility] [address] [place] [address]
--- OUTSIDE RECORDS SUMMARY | 2024-10-24 23:39 | External Medical Summary | Summary of Care ---
Author Name Unknown Organization [facility] Address [address] [address] Phone [phone] Care Team Providers Care Drying And Winding Supervisor Name Role Phone Pete Ambriz MD Primary Care Provider [phone] Reason for Visit * Reason Comments Pacemaker Clinic Encounter Details Date Type Department Care Team (Latest Contact Info) Description 09/02/2024 10:00 AM EST Cardiac Studies [facility], [facility] [place] [address] [place], [facility] [address] [place] [address] Cardiac pacemaker in situ*; SSS (sick sinus syndrome) ([facility]); PAF (paroxysmal atrial fibrillation) ([facility]); Heart failure, diastolic, with acute decompensation ([facility]); Persistent atrial fibrillation ([facility]) Allergies Active Allergy Reactions Criticality Noted Date [...] ation management encounter,Aortoc oronary bypass status,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),group home current use of anticoagulant therapy TAKE 1/2 TO 1 TABLET BY MOUTH ONCE DAILY DIRECTED BY COUMADIN CLINIC 90 Tablet 3 2023 Active metFORMIN HCl ER 500 MG Oral Tablet Extended Release 24 Hour (Glucophage XR)Indications:T ype 2 diabetes mellitus with hemoglobin A1c goal of 7.0%-8.0% ([facility]) TAKE 2 TABLETS BY MOUTH DAILY WITH MEALS Patient takes one once per day 2023 Active Repaglinide 1 MG Oral Tablet (Prandin)Indicat ions:Type 2 diabetes mellitus with hemoglobin A1c goal of 7.0%-8.0% ([facility]) Take 1 Tablet by mouth in the [...] Active Benzonatate 100 MG Oral Capsule (Tessalestella De La Rosa)Indicatio ns:Bronchitis, complicated TAKE 1 CAPSULE BY MOUTH [...] (Lasix)Indicatio ns:Heart failure, diastolic, with acute decompensation ([facility]) TAKE TWO TABLETS BY MOUTH ONCE DAILY [...] macular edema, left eye 12/28/2020 Atherosclerosis of [place] co ronary artery of [place] heart without angina pectoris 12/19/2019 Persistent atrial fibrillation 11/28/2019 HTN, goal below 130/80 04/26/2019 Type 2 diabetes mellitus with diabetic neuropath y 02/11/2019 Chronic diarrhea 05/14/2010 Type 2 diabetes mellitus wit h hemoglobin A1c goal of 7.0%-8.0% 01/08/2010 Overview (02/18/2016): ICD-10 update of inactive term DYSLIPIDEMIA, GOAL LDL BELOW 70 10/12/2009 Overview (10/12/2009): Per Lipid Taxonomy. Vitamin D deficiency 12/12/2007 group home current use of anticoagulant therapy 0 [...] Nummular eczema 09/06/2013 07/26/2021 [employer] Other*[id number] 02/03/2012 11/29/2016 Overview (02/03/2012): Study Titile: [employer] Markers for Patients with Cardiovascular Disease Project # [id number] PI: Merary Rivera MD Please call [phone] with study related questions Irritable bowel syndrome 05/14/201001/2021 Type 2 diabetes mellitus wit h hemoglobin A1c goal of less than 7.0% 08/06/2009 01/08/2010 Overview (02/16/2016): Modified per Diabetes protocol #14. ICD-10 update of inactive term ADVANCE DIRECTIVE INFORMATION 09/27/2007 07/26/2021 Overview (03/14/2006): Yes-copy on file Carpal tunnel syndrome 04/14/200404/01 Atherosclerosis of [place] co ronary artery of [place] heart without angina pectoris 04/14/2004 Overview (01/06/2020): [...] as of this encounter Progress Notes * Stacey Galan LPN - 09/02/2024 10:24 AM EST Patient and implanted device were evaluated today in the [facility]. Providers please see scanned report in the Scans tab. Left pectoral device pocket is healthy without erythema, swelling, pain, or drainage. Patient was in VVIR mode due to persistant AF now changed back to AAIR-DDDR per provider Battery longevity 12 months documented in this encounter Plan of Treatment Upcoming Encounters Date Type Department Care Team (Late st Contact Info) Description 09/09/2024 12:20 PM EST Office Visit [facility], [place] [facility] [address] [place] [phone] Pete Ambriz MD [address] [facility] [place] [address] 10/01/2024 10:00 AM EST Office Visit Pharmacy, [place] [employer] [address] [facility] [place] [address] [facility] [address] [facility] [address] 10/01/2024 10:30 AM EST Anticoagulation Pharmacy, [place] [employer] [address] [facility] [address] [facility] [address] [facility] [address] 05/14/2025 10:00 AM EDT Nurse Only Ancillary Department, [facility] [address] [facility] [address] [place] [employer], Nurse Annual Wellness [address] [facility] [address] Scheduled Orders Name Type Priority Associated Diagnoses Orde r Schedule DUAL-LEAD PACEMAKER + REPROGRAM Procedures Routine Cardiac pacemaker in situ SSS (sick sinus syndrome) (HCC) PAF (paroxysmal atrial fibrillation) (HCC) Heart failure, diastolic, with acute decompensation (HCC) Persistent atrial fibrillation (HCC) Ordered: 09/02/2024 Scheduled Procedures Name Priority Associated Diagnoses Date/Ti [...] Additional history exists CKD HGB USE SMARTSET 76998 01/28/202501/28, 01/29/2024, 12/27/2023, Additional history exists CKD PHOS USE SMARTSET 51490 01/28/2025 04/0 05/2024, 02/01/2023, 07/29/2022, Additional history [...] D LEVEL ONCE IN A LIFETIME-USE SMARTSET# [id number] Completed 07/03/2024, 08/28/2008, 04/07/2008, Additional history exists [...] as of this encounter Visit Diagnoses Diagnosis Cardiac pacemaker in situ- Primary SSS (sick sinus syndrome) (HCC) Sinoatrial node dysfunction PAF (paroxysmal atrial fibrillation) (HCC) 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 Heart failure, diastolic, with acute decompensation (HCC) Acute on chronic diastolic heart failure Persistent atrial fibrillation (HCC) 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 documented in this encounter Advance Directives * No Code Status (Latest Code Status on File) Date Activated Date Inactivated Comments 01/11/2005 2:56 PM 01/11/2005 3:56 PM Care Teams Drying And Winding Supervisor Relationship Specialty Start Date End Date Pete Ambriz MD [address] [place] [address] PCP - General Internal Medicine 05/08/24 documented as of this encounter
--- OUTSIDE RECORDS SUMMARY | 2024-10-24 23:39 | External Medical Summary ---
Author Name Unknown Address Unknown Organization [id number]:LABORATORY [facility] - [address] [place] [address] Laboratory Report Ordering Provider Test Date Status BEST FERMIN 09/02/2024 11:12:53 Final Observation Date Value Abnormality Reference (Units ) Status Ferritin 09/02/2024 11:12:53 42 13-150 (ng /mL) Final Postmenopausal women have hi gher ferritin levels than pre-menopausal women. The above reference interval is based on pre-menopausal women. Performing Location LABORATORY [facility] - [address] [place] [address]
--- OUTSIDE RECORDS SUMMARY | 2024-10-24 23:39 | External Medical Summary | Summary of Care ---
Author Name Unknown Organization [facility] Address [address] [place] [address] Phone [phone] Care Team Providers Care Women Specialist Name Role Phone Pete Ambriz MD Primary Care Provider [phone] Reason for Visit * Reason Comments eRx-Medication Refill Encounter Details Date Type Department Care Team (Late st Contact Info) Description 08/12/2024 Refill [facility] [address] [place] [address] [place] Do MD [address] [place] [address] Bronchitis, complicated Allergies Active Allergy Reactions Criticality Noted Date Comments Cephalexin Unknown 09/12/2002 Lisinopril 12/07/2018 Cough Oxycodone 12/04/2003 nausea, stomach pains Tetanus Toxoid 01/28/2009 Local reaction, fever documented as of this encounter (statuses as of 08/15/2024) Medications Medication Sig Dispensed Refills Start Date End Date Status Vitamin D 50 MCG (1999) Oral CapsuleIndications :Supplement Take 5,000 Units by mouth at bedtime. Active B-12 500 MCG Oral TabletIndications: Supplement Take by mouth 1 Tablet daily . Active Furosemide 20 MG Oral Tablet (Lasix)Indications :Heart failure, diastolic, with acute decompensation (HCC) TAKE [...] 03/21/2024 Triamcinolone Acetonide 0.1 % External Cream (Aristocort)Indica [...] 4 Active Empagliflozin 25 MG Oral Tablet (Jardiance)Indicat ions:Type 2 diabetes mellitus with hemoglobin A1c [...] Active Nitroglycerin 0.4 MG Sublingual Tablet Sublingual (Nitrostat)Indicat [...] ion management encounter,Aortocor onary bypass status,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),long-term current use of anticoagulant therapy TAKE 1/2 TO 1 TABLET BY MOUTH ONCE DAILY DIRECTED BY COUMADIN CLINIC 90 Tablet 3 4 Active metFORMIN HCl ER 500 MG Oral Tablet Extended Release 24 Hour (Glucophage XR)Indications:Typ e 2 diabetes mellitus with hemoglobin A1c goal of 7.0%-8.0% ([facility]) TAKE 2 TABLETS BY MOUTH DAILY WITH MEALS Patient takes one once per day 4 Active Repaglinide 1 MG Oral Tablet (Prandin)Indicatio ns:Type 2 diabetes mellitus with hemoglobin A1c goal of 7.0%-8.0% ([facility]) Take 1 Tablet by mouth in [...] OR COUGH 8.5 g 1 4 Active Albuterol Sulfate HFA 108 (90 Base) MCG/ACT Inhalation Aerosol SolutionIndication s:Bronchitis, complicated Inhale 2 Puffs by mouth every 6 hours as needed for Wheezing or Other (cough). 18 g 1 4 024 Discontin ued(Refil l) Hospital, Clinic, or Other Facility Administered Medication Ordered Dose Route Frequency Start Date End Date Status potassium chloride ER tab 10 mEqIndications:Acute on chronic diastolic congestive heart failure (HCC) 10 mEq OR Daily(AM) 12/24/2019 Activ e documented as of this encounter (statuses as of 08/15/2024) Active Problems Problem Noted Date Diagnosed Date [...] macular edema, left eye 12/28/2020 Atherosclerosis of [place] co ronary artery of [place] heart without angina pectoris 12/19/2019 Persistent atrial [...] as of this encounter (statuses as of 08/15/2024) Resolved Problems Problem Noted Date Diagnosed Date [...] 07/08/2016 020 Bacterial pneumonia 05/18/2016 06/04/20 20 Overview: Acute. Nausea without vomiting 05/18/201605/23 Hyponatremia 05/18/2016 07/26/2021 Nummular eczema 09/06/2013 07/26/2021 [employer] Other*[id number] 02/03/2012 11/29/2016 Overview: Study Titile: [employer] Markers for Patients with Cardiovascular Disease Project # [id number] PI: Merary Rivera MD Please call [phone] with study related questions Irritable bowel syndrome 05/14/201001/2021 Type 2 diabetes mellitus wit h hemoglobin A1c goal of less than 7.0% 08/06/2009 01/08/2010 Overview: Modified per Diabetes protocol #14. ICD-10 update of inactive term ADVANCE DIRECTIVE INFORMATION 09/27/2007 07/26/2021 Overview: Yes-copy on file Carpal tunnel syndrome 04/14/200404/01 Atherosclerosis of [place] co ronary artery of [place] heart without angina pectoris 04/14/2004 Overview: Duplicate. [...] as of this encounter (statuses as of 08/15/2024) Immunizations Name Administration Dates Next Due COVID-19 [...] on file documented as of this encounter Miscellaneous Notes * Telephone Encounter - Pete Ambriz MD - 08/15/2024 6:47 AM EDTSigned Prescriptions: Disp Refills Albuterol Sulfate HFA 108 (90 Base) MCG/AC*8.5 g 1 Sig: INHALE TWO PUFFS BY MOUTH EVERY 6 HOURS NEEDED FOR WHEEZING OR COUGH Authorizing Provider: PETE AMBRIZ * Telephone Encounter - Gulshan Chew, manager trainee - 08/14/2024 5:07 PM EDT Patient is almost out Pharmacy calling to check on status of Albuterol. Caller can be reached at [phone]. Thank you, Gulshan Chew Flight Engineer Instructor [facility] 08/14/2024, 5:07 PM * Telephone Encounter - Shereen Avery [facility] - 08/14/2024 7:42 AM EDTPending Prescriptions: Disp Refills Albuterol Sulfate HFA 108 (90 Base) MCG/AC*8.5 g 1 Sig: INHALE TWO PUFFS BY MOUTH EVERY 6 HOURS NEEDED FOR WHEEZING OR COUGH * Telephone Encounter - Shereen Avery RPh - 08/14/2024 7:42 AM EDT Last prescribed for an acute issue. Forwarding to provider. Please authorize refill if appropriate. Thanks, Shereen Avery Clinical Pharmacist [facility] [phone] 08/14/2024, 7:42 AM documented in this encounter Plan of Treatment Upcoming Encounters Date Type Department Care Team (Late st Contact Info) Description 08/20/2024 9:10 AM EDT Anticoagulation Pharmacy, [place] [address] [place] [address] [facility] [address] [place] [facility] [place] [address] 08/26/2024 10:20 AM EST Office Visit Family [facility], [place] [address] [place] [facility] [place] [address] Pete Ambriz MD [address] [place] [address] 09/02/2024 10:00 AM EST Office Visit Cardiology, [facility] [address] [place] [address] [place] Momin PA-C [address] [place] [address] 09/02/2024 10:00 AM EST Cardiac Studies Cardiology, [facility] [address] [place] [address] [address] [facility] [address] [facility] [address] 10/01/2024 10:00 AM EST Office Visit Pharmacy, [place] [address] [facility], [place] [address] [facility] [address] [facility], [place] [address] 10/01/2024 10:30 AM EST Anticoagulation Pharmacy, [place] [address] [facility], [place] [address] [facility] [address] [facility], [place] [address] 05/14/2025 10:00 AM EDT Nurse Only Ancillary Department, [place] [address] [place] [facility] [place] [address] [place], Nurse Annual Wellness [address] [place] [facility] [place] [address] Scheduled Procedures Name Priority Associated Diagnoses Date/Ti me COLONOSCOPY FLEXIBLE PROXIMA L DIAGNOSTIC Recall History of colonic polyps Health Maintenance Due Date Last Done Comments Colonoscopy 02/07/2022 02/07/2019, 01/21, 03/18/2010 COVID-19 Vaccine ( season) 2024 06/22/2021, 05/08/2021 HbA1c 11/24/2024 05/24/2024, 05/2024, 07/25/2023, Additional history exists GFR 12/31/2024 07/03/2024, 11/2023, 12/27/2023, Additional history exists B-12 01/28/2025 01/29/2024, 01/21, 07/29/2022, Additional history exists CKD HGB USE SMARTSET 88034 01/28/202501/28, 01/29/2024, 12/27/2023, Additional history exists CKD PHOS USE SMARTSET 98188 01/28/2025 04/0 05/2024, 02/01/2023, 07/29/2022, Additional history [...] D LEVEL ONCE IN A LIFETIME-USE SMARTSET# [id number] Completed 07/03/2024, 08/28/2008, 04/07/2008, Additional history exists [...] 2:56 PM 01/11/2005 3:56 PM Care Teams Women Specialist Relationship Specialty Start Date End Date Pete Ambriz MD [address] [place] [address] PCP - General Internal Medicine 05/08/24 documented as of this encounter
--- OUTSIDE RECORDS SUMMARY | 2024-10-24 23:39 | External Medical Summary ---
Author Name Unknown Address Unknown Organization K0G:LAB[facility]ATORY [facility] - [address] [place] [address] Laboratory Report Ordering Provider Test Date Status BEST FERMIN 09/02/2024 11:12:53 Final Observation Date Value Abnormality Reference (Units ) Status BUN 09/02/2024 11:12:53 25 Above high normal 6-20 (mg/dL) Final Creatinine 09/02/2024 11:12:53 1.4 Above high normal 0.5-1.0 (mg/dL) Final Glomerular filtration rate/1.73 sq M.predicted [Volume Rate/Area] in Serum, Plasma or Blood by Creatinine-based formula (CKD-EPI) 09/02/2024 11:12:53 39 Below low normal >=60 (mL/min) Final eGFR is calculated based on the CKD-EPI 2020 equation. Sodium 09/02/2024 11:12:53 139 135-146 (m mol/L) Final Potassium 09/02/2024 11:12:53 4.6 3.5-5.1 (m mol/L) Final Cl 09/02/2024 11:12:53 100 98-107 (mm ol/L) Final CO2 09/02/2024 11:12:53 30 22-32 (mmo l/L) Final Anion gap 09/02/2024 11:12:53 9 7-15 (mmol /L) Final Glucose 09/02/2024 11:12:53 199 Above high normal 70 -120 (mg/dL) Final Albumin 09/02/2024 11:12:53 4.0 3.8-5.0 (g /dL) Final AST (Aspartate aminotransferase) 09/02/2024 11:12:53 36 Above high normal 10-35 (U/L) Final Alk Phos 09/02/2024 11:12:53 59 35-130 (U/ L) Final Bilirubin, Total 09/02/2024 11:12:53 0.3 <=1 .2 (mg/dL) Final Calcium 09/02/2024 11:12:53 9.9 8.4-10.2 ( mg/dL) Final Protein 09/02/2024 11:12:53 7.4 6.0-8.3 (g /dL) Final ALT (Alanine aminotransferase) 09/02/2024 11:12:53 37 Above high normal 10-35 (U/L) Final [facility] - [address] [facility] [address]
--- OUTSIDE RECORDS SUMMARY | 2024-10-24 23:39 | External Medical Summary | Summary of Care ---
Author Name Unknown Organization [facility] Address [address] [facility] [address] Phone [phone] Care Team Providers Care Nailhead Setter Name Role Phone Pete Ambriz MD Primary Care Provider [phone] Reason for Visit * Reason Comments Pacemaker Clinic Encounter Details Date Type Department Care Team (Latest Contact Info) Description 09/02/2024 10:00 AM EST Cardiac Studies Cardiology, [facility] [address] [facility] [place] [address] [place], Pacer Clinic [facility] [address] [place] [address] Cardiac pacemaker in situ*; SSS (sick sinus syndrome) ([facility]); PAF (paroxysmal atrial fibrillation) ([facility]); Heart failure, diastolic, with acute decompensation ([facility]); Persistent atrial fibrillation ([facility]) Allergies Active Allergy Reactions Criticality Noted Date [...] ation management encounter,Aortoc oronary bypass status,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),snf current use of anticoagulant therapy TAKE 1/2 TO 1 TABLET BY MOUTH ONCE DAILY DIRECTED BY COUMADIN CLINIC 90 Tablet 3 2023 Active metFORMIN HCl ER 500 MG Oral Tablet Extended Release 24 Hour (Glucophage XR)Indications:T ype 2 diabetes mellitus with hemoglobin A1c goal of 7.0%-8.0% ([facility]) TAKE 2 TABLETS BY MOUTH DAILY WITH MEALS Patient takes one once per day 2023 Active Repaglinide 1 MG Oral Tablet (Prandin)Indicat ions:Type 2 diabetes mellitus with hemoglobin A1c goal of 7.0%-8.0% ([facility]) Take 1 Tablet by mouth [...] (Lasix)Indicatio ns:Heart failure, diastolic, with acute decompensation ([facility]) TAKE TWO TABLETS BY MOUTH ONCE DAILY [...] macular edema, left eye 12/28/2020 Atherosclerosis of [place] co ronary artery of [place] heart without angina pectoris 12/19/2019 Persistent atrial fibrillation 11/28/2019 HTN, goal below 130/80 04/26/2019 Type 2 diabetes mellitus with diabetic neuropath y 02/11/2019 Chronic diarrhea 05/14/2010 Type 2 diabetes mellitus wit h hemoglobin A1c goal of 7.0%-8.0% 01/08/2010 Overview (02/18/2016): ICD-10 update of inactive term DYSLIPIDEMIA, GOAL LDL BELOW 70 10/12/2009 Overview (10/12/2009): Per Lipid Taxonomy. Vitamin D deficiency 12/12/2007 snf current use of anticoagulant therapy 0 05/27/2005 [...] Nummular eczema 09/06/2013 07/26/2021 [employer] Other*[id number] 02/03/2012 11/29/2016 Overview (02/03/2012): Study Titile: [employer] Markers for Patients with Cardiovascular Disease Project # [id number] PI: Merary Rivera MD Please call [phone] with study related questions Irritable bowel syndrome 05/14/201001/2021 Type 2 diabetes mellitus wit h hemoglobin A1c goal of less than 7.0% 08/06/2009 01/08/2010 Overview (02/16/2016): Modified per Diabetes protocol #14. ICD-10 update of inactive term ADVANCE DIRECTIVE INFORMATION 09/27/2007 07/26/2021 Overview (03/14/2006): Yes-copy on file Carpal tunnel syndrome 04/14/200404/01 Atherosclerosis of [place] co ronary artery of [place] heart without angina pectoris 04/14/2004 Overview (01/06/2020): [...] without erythema, swelling, pain, or drainage. Patient in VVIR mode due to persistant AF Battery longevity 12 months documented in this encounter Plan of Treatment Upcoming Encounters Date Type Department Care Team (Late st Contact Info) Description 09/09/2024 12:20 PM EST Office Visit [facility], [place] [address] [facility] [place] [phone] Pete Ambriz MD [address] [facility] [address] 10/01/2024 10:00 AM EST Office Visit Pharmacy, [place] [address] [facility] [place] [address] [place] [facility] [address] [facility] [facility] [address] 10/01/2024 10:30 AM EST Anticoagulation Pharmacy, [place] [facility] [address] [place] [facility] [address] [facility] [address] 05/14/2025 10:00 AM EDT Nurse Only Ancillary Department, [place] [address] [facility] [place] [address] [place], Nurse Annual Wellness [address] [facility] [place] [address] Scheduled Orders Name Type Priority Associated Diagnoses [...] Additional history exists CKD HGB USE SMARTSET 04656 01/28/202501/28, 01/29/2024, 12/27/2023, Additional history exists CKD PHOS USE SMARTSET 87719 01/28/2025 040 05/2024, 02/01/2023, 07/29/2022, Additional history exists Diabetic Foot Exam 04/23/2025 04/23/2024, 1 , 07/26/2021, Additional history exists Adult Wellness Visit 05/08/2025 05/08/2024, 05/05/20 Depression Screening 05/08/2025 05/08/2024 Albumin/Creatinine Ratio 05/24/2025 024, 07/25/2023, 02/01/2023, Additional history exists Diabetic Eye Exam 06/17/2025 06/17/2024, , 12/01/2023, Additional history exists DXA Scan 06/04/2026 06/04/2024, 02/20, 03/01/2022, Additional history exists Pneumococcal Vaccine: 65+ Years Completed 05/08/2018, 08/12/2016, 07/20/2005 VITAMIN D LEVEL ONCE IN A LIFETIME-USE SMARTSET# [id number] Completed 07/03/2024, 08/28/2008, 04/07/2008, Additional history exists [...] 2:56 PM 01/11/2005 3:56 PM Care Teams Nailhead Setter Relationship Specialty Start Date End Date Pete Ambriz MD [address] [place] [facility] [place] [address] PCP - General Internal Medicine 05/08/24 documented as of this encounter
--- OUTSIDE RECORDS SUMMARY | 2024-10-24 23:40 | External Medical Summary | Summary of Care ---
Author Name Unknown Organization [facility] Address [address] [facility] [place] [address] Phone [phone] Care Team Providers Care Shale Planer Operator Name Role Phone Pete Ambriz MD Primary Care Provider [phone] Reason for Visit * Reason Comments Cardiac Rehab Encounter Details Date Type Department Care Team (Late st Contact Info) Description 07/27/2024 9:00 AM EDT Telemedicine Cardiac Rehab [facility], Virtual [address] [place] [address] [place] [address] Advanced, Virtual Cardiac Rehab [address] [place] [address] [place] [address] Aortocoronary bypass status* Allergies Active Allergy Reactions Criticality Noted Date Comments Cephalexin Unknown 09/12/2002 Lisinopril 12/07/2018 Cough Oxycodone 12/04/2003 nausea, stomach pains Tetanus Toxoid 01/28/2009 Local reaction, fever documented as of this encounter (statuses as of 07/31/2024) Medications Medication Sig Dispensed Refills Start Date [...] on management encounter,Aortocoro nary bypass status,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),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 18 g 1 4 Active Hospital, Clinic, or Other Facility Administered Medication Ordered Dose Route Frequency Start Date End Date Status potassium chloride ER tab 10 mEqIndications:Acute on chronic diastolic congestive heart failure (HCC) 10 mEq OR Daily(AM) 12/24/2019 Activ e documented as of this encounter (statuses as of 07/31/2024) Active Problems Problem Noted Date Diagnosed Date [...] macular edema, left eye 12/28/2020 Atherosclerosis of [place] co ronary artery of [place] heart without angina pectoris 12/19/2019 Persistent atrial fibrillation 11/28/2019 HTN, goal below 130/80 04/26/2019 Type 2 diabetes mellitus with diabetic neuropath y 02/11/2019 Chronic diarrhea 05/14/2010 Type 2 diabetes mellitus wit h hemoglobin A1c goal of 7.0%-8.0% 01/08/2010 Overview: ICD-10 update of inactive term DYSLIPIDEMIA, GOAL LDL BELOW 70 10/12/2009 Overview: Per Lipid Taxonomy. 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 Pulmonary hypertension DISH (diffuse idiopathic skeletal hyperostosis) documented as of this encounter (statuses as of 07/31/2024) Resolved Problems Problem Noted Date Diagnosed Date [...] Nummular eczema 09/06/2013 07/26/2021 [employer] Other*[id number] 02/03/2012 11/29/2016 Overview: Study Titile: [employer] Markers for Patients with Cardiovascular Disease Project # [id number] PI: Merary Rivera MD Please call [phone] with study related questions Irritable bowel syndrome 05/14/201001/2021 Type 2 diabetes mellitus wit h hemoglobin A1c goal of less than 7.0% 08/06/2009 01/08/2010 Overview: Modified per Diabetes protocol #14. ICD-10 update of inactive term ADVANCE DIRECTIVE INFORMATION 09/27/2007 07/26/2021 Overview: Yes-copy on file Carpal tunnel syndrome 04/14/200404/01 Atherosclerosis of [place] co ronary artery of [place] heart without angina pectoris 04/14/2004 Overview: Duplicate. [...] as of this encounter (statuses as of 07/31/2024) Immunizations Name Administration Dates Next Due COVID-19 [...] * Hali De La Torre EPC - 07/31/2024 10:54 PM EDT Session Encounter: Patient is participating in [facility]'s Intensive Cardiac Rehab Program in partnership with [employer] is a specialized company that specializes in providing virtual cardiac rehab services. Session #42 completed. Please refer to scan document for session details. Session type: Exercise Group Session duration: 60 minutes documented in this encounter Plan of Treatment Upcoming Encounters Date Type Department Care Team (Late st Contact Info) Description 08/13/2024 11:00 AM EDT [facility], [place] [address] [facility] [address] [place], [facility] [address] [facility] [address] 08/26/2024 10:20 AM EST Office Visit Family Practice, [place] [address] [facility] [phone] Pete Ambriz MD [address] [facility] [address] 09/02/2024 10:00 AM EST Office Visit Cardiology, [facility] [address] [facility] [place] [address] [place] Momin PA-C [address] [facility] [place] [address] 09/02/2024 10:00 AM EST Cardiac Studies Cardiology, [facility] [address] [facility] [place] [address] [facility] [address] [facility] [place] [address] 10/01/2024 10:00 AM EST Office Visit Pharmacy, [place] [address] [address] [facility] [address] [facility] [address] [facility], [place] [address] 10/01/2024 10:30 AM EST Anticoagulation Pharmacy, [place] [address] [facility], [place] [address] [facility] [address] [facility] [address] 05/14/2025 10:00 AM EDT Nurse Only Ancillary Department, [place] [address] [address] [facility] [address] [place], Nurse [facility] [address] [facility] [address] Scheduled Procedures Name Priority Associated Diagnoses Date/Ti [...] Additional history exists CKD HGB USE SMARTSET 95013 01/28/202501/28, 01/29/2024, 12/27/2023, Additional history exists CKD PHOS USE SMARTSET 80416 01/28/2025 040 05/2024, 02/01/2023, 07/29/2022, Additional history [...] D LEVEL ONCE IN A LIFETIME-USE SMARTSET# [id number] Completed 07/03/2024, 08/28/2008, 04/07/2008, Additional history exists [...] 2:56 PM 01/11/2005 3:56 PM Care Teams Shale Planer Operator Relationship Specialty Start Date End Date Pete Ambriz MD [address] [place] [address] PCP - General Internal Medicine 05/08/24 documented as of this encounter
--- OUTSIDE RECORDS SUMMARY | 2024-10-24 23:40 | External Medical Summary | Summary of Care ---
Author Name Unknown Organization [facility] Address [address] [facility] [place] [address] Phone [phone] Care Team Providers Care Assistant Professor Of Art Name Role Phone Pete Ambriz MD Primary Care Provider [phone] Reason for Visit * Reason Comments Cardiac Rehab Encounter Details Date Type Department Care Team (Late st Contact Info) Description 08/02/2024 8:00 AM EDT Telemedicine Cardiac Rehab [facility], Virtual [address] [place] [address] [place] [address] Advanced, Virtual Cardiac Rehab [address] [place] [address] [place] [address] Aortocoronary bypass status* Allergies Active Allergy Reactions [...] on management encounter,Aortocoro nary bypass status,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),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 TAKE [...] Active Benzonatate 100 MG Oral Capsule (Tessalon Perlaustin)Indications: Bronchitis, complicated TAKE 1 CAPSULE BY MOUTH [...] macular edema, left eye 12/28/2020 Atherosclerosis of [place] co ronary artery of [place] heart without angina pectoris 12/19/2019 Persistent atrial fibrillation 11/28/2019 HTN, goal below 130/80 04/26/2019 Type 2 diabetes mellitus with diabetic neuropath y 02/11/2019 Chronic diarrhea 05/14/2010 Type 2 diabetes mellitus wit h hemoglobin A1c goal of 7.0%-8.0% 01/08/2010 Overview: ICD-10 update of inactive term DYSLIPIDEMIA, GOAL LDL BELOW 70 10/12/2009 Overview: Per Lipid Taxonomy. 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 ICD-10 update of inactive term ADVANCE DIRECTIVE INFORMATION 09/27/2007 07/26/2021 Overview: Yes-copy on file Carpal tunnel syndrome 04/14/200404/01 Atherosclerosis of [place] co ronary artery of [place] heart without angina pectoris 04/14/2004 Overview: Duplicate. [...] mRNA, LNP-s, No Pre serve, 2-Dose Series ([employer]) 06/22/2021,05/08/2021 Pneumococcal Conjugate Vacc, 13 Valent (Prevnar) [...] * Hali De La Torre EPC - 08/07/2024 10:27 AM EDT Session Encounter: [facility] in partnership with [employer] is a specialized company that specializes in providing virtual cardiac rehab services. Session #49 completed. Please refer to scan document for session details. Session type: Exercise Individual Session duration: 35 minutes documented in this encounter Plan of Treatment Upcoming Encounters Date Type Department Care Team (Late st Contact Info) Description 08/13/2024 11:00 AM EDT Anticoagulation Pharmacy, [place] [address] [place] [facility] [place] [address] [facility] [address] [place] [facility] [place] [address] 08/26/2024 10:20 AM EST Office Visit [place] [address] [facility] [phone] Pete Ambriz MD [address] [place] [facility] [place] [address] 09/02/2024 10:00 AM EST Office Visit Cardiology, [facility] [address] [facility] [place] [address] [place] Momin PA-C [address] [place] [address] 09/02/2024 10:00 AM EST Cardiac Studies Cardiology, [facility] [place] [address] [facility] [place] [address] [facility] [place] [address] 10/01/2024 10:00 AM EST Office Visit Pharmacy, [place] [address] [facility], [place] [address] [facility] [address] [facility], [place] [address] 10/01/2024 10:30 AM EST Anticoagulation Pharmacy, [place] [address] [place] [facility] [address] [facility] [address] [facility], [place] [address] 05/14/2025 10:00 AM EDT Nurse Only Ancillary Department, [place] [address] [facility], [place] [address] [place], Nurse Annual Wellness [address] [facility], [place] [address] Scheduled Procedures Name Priority Associated Diagnoses Date/Ti [...] Additional history exists CKD HGB USE SMARTSET 73709 01/28/202501/28, 01/29/2024, 12/27/2023, Additional history exists CKD PHOS USE SMARTSET 36643 01/28/20250 05/2024, 02/01/2023, 07/29/2022, Additional history exists [...] D LEVEL ONCE IN A LIFETIME-USE SMARTSET# [id number] Completed 07/03/2024, 08/28/2008, 04/07/2008, Additional history exists [...] 2:56 PM 01/11/2005 3:56 PM Care Teams Assistant Professor Of Art Relationship Specialty Start Date End Date Pete Ambriz MD [address] [place] [address] PCP - General Internal Medicine 05/08/24 documented as of this encounter
--- OUTSIDE RECORDS SUMMARY | 2024-10-24 23:40 | External Medical Summary | Summary of Care ---
Author Name Unknown Organization [facility] Address [address] [facility] [place] [address] Phone [phone] Care Team Providers Care Law Secretary Name Role Phone Pete Ambriz MD Primary Care Provider Reason for Visit * Reason Comments Cardiac Rehab Encounter Details Date Type Department Care Team (Late st Contact Info) Description 08/01/2024 8:00 AM EDT Telemedicine Cardiac Rehab [facility], Virtual [address] [place] [address] [place] [address] Advanced, Virtual Cardiac Rehab [address] [place] [address] [place] [address] Aortocoronary bypass status* Allergies Active Allergy Reactions [...] on management encounter,Aortocoro nary bypass status,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),MCC current use of anticoagulant therapy TAKE 1/2 TO 1 TABLET BY MOUTH ONCE DAILY DIRECTED BY [facility] 90 Tablet 3 4 Active metFORMIN HCl ER 500 MG Oral Tablet Extended Release 24 Hour (Glucophage XR)Indications:Type 2 diabetes mellitus with hemoglobin A1c goal of 7.0%-8.0% ([facility]) TAKE 2 TABLETS BY MOUTH DAILY WITH MEALS Patient takes one once per day 4 Active Repaglinide 1 MG Oral Tablet (Prandin)Indication s:Type 2 diabetes mellitus with hemoglobin A1c goal of 7.0%-8.0% ([facility]) Take 1 Tablet by mouth in [...] edema, left eye 12/28/[address] [place] co ronary artery of [place] heart without angina pectoris 12/19/2019 Persistent atrial fibrillation 11/28/2019 HTN, goal below 130/80 04/26/2019 Type 2 diabetes mellitus with diabetic neuropath y 02/11/2019 Chronic diarrhea 05/14/2010 Type 2 diabetes mellitus wit h hemoglobin A1c goal of 7.0%-8.0% 01/08/2010 Overview: ICD-10 update of inactive term DYSLIPIDEMIA, GOAL LDL BELOW 70 10/12/2009 Overview: Per Lipid Taxonomy. 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 ICD-10 update of inactive term ADVANCE DIRECTIVE INFORMATION 09/27/2007 07/26/2021 Overview: Yes-copy on file Carpal tunnel syndrome 04/14/200404/[address] [place] co ronary artery of [place] heart without angina pectoris 04/14/2004 Overview: Duplicate. [...] mRNA, LNP-s, No Pre serve, 2-Dose Series ([employer]) 06/22/2021,05/08/2021 Pneumococcal Conjugate Vacc, 13 Valent (Prevnar) [...] EDT Session Encounter: Patient is participating in [facility] Int[facility] in partnership with [employer] is a specialized company that specializes in providing virtual cardiac rehab services. Session #48 completed. Please refer to scan document for session details. Session type: Exercise Group Session duration: 60 minutes documented in this encounter Plan of Treatment Upcoming Encounters Date Type Department Care Team (Late st Contact Info) Description 08/13/2024 11:00 AM EDT Anticoagulation Pharmacy, [place] [address] [place] [address] [facility] [address] [place] [address] 08/26/2024 10:20 AM EST Office Visit [place] [address] [facility] [address] Pete Ambriz MD [address] [place] [address] 09/02/2024 10:00 AM EST Office Visit Cardiology, [facility] 132 [facility] [place] [address] [place] Momin PA-C [address] [place] [address] 09/02/2024 10:00 AM EST Cardiac Studies Cardiology, [facility] [place] [address] [facility] [address] [facility] [place] [address] 10/01/2024 10:00 AM EST Office Visit Pharmacy, [place] [address] [facility], [place] [address] [facility] [address] [facility], [place] [address] 10/01/2024 10:30 AM EST Anticoagulation Pharmacy, [place] [address] [place] [facility] [address] [facility] [address] [facility], [place] [address] 05/14/2025 10:00 AM EDT Nurse Only Ancillary Department, [place] [address] [facility], [place] [address] [place], Nurse Annual Wellness [address] [facility], [place] [address] Scheduled Procedures Name Priority Associated Diagnoses Date/Ti [...] Additional history exists CKD HGB USE SMARTSET 94030 01/28/202501/28, 01/29/2024, 12/27/2023, Additional history exists CKD PHOS USE SMARTSET 98153 01/28/20250 05/2024, 02/01/2023, 07/29/2022, Additional history exists [...] D LEVEL ONCE IN A LIFETIME-USE SMARTSET# [id number] Completed 07/03/2024, 08/28/2008, 04/07/2008, Additional history exists [...] 2:56 PM 01/11/2005 3:56 PM Care Teams Law Secretary Relationship Specialty Start Date End Date Pete Ambriz MD [address] [place] [address] PCP - General Internal Medicine 05/08/24 documented as of this encounter
--- OUTSIDE RECORDS SUMMARY | 2024-10-24 23:40 | External Medical Summary | Summary of Care ---
Author Name Unknown Organization [facility] Address [address] [place] [address] Phone [phone] Care Team Providers Care Soda Dry House Operator Name Role Phone Pete Ambriz MD Primary Care Provider [phone] Reason for Visit * Reason Comments IV Therapy Reclast * Episode Based Medications (Routine) - Authorized Specialty Diagnoses / Procedures Referred By Contac t Referred To Contact Diagnoses Age-related osteoporosis without current pathological fracture Procedures GA ZOLEDRONIC ACID 1MG Jairo Owen PA-C [address] [place] [address] Anc Hem/Onc [address] [address] Referral ID Status Reason Start Date Expiration Date V isits Requested Visits Authorized [id number] Authorized 06/26/2024 06/26/[phone] Encounter Details Date Type Department Care Team (Latest Contact Info) Description 07/10/2024 1:15 PM EDT Hem/Onc Treatment Hematology/Oncology Treatment, [address] [place] [address] Mildred, Chair 2 Hem Onc [address] [place] [id number] Age-related osteoporosis without current pathological fracture* Allergies Active Allergy Reactions Criticality Noted Date Comments Cephalexin Unknown 09/12/2002 Lisinopril 12/07/2018 Cough Oxycodone 12/04/2003 nausea, stomach pains Tetanus Toxoid 01/28/2009 Local reaction, fever documented as of this encounter (statuses as of 08/05/2024) Medications Medication Sig Dispensed Refills Start Date [...] DAILY 90 Tablet 3 03/02/20 24 Active Empagliflozin 25 MG Oral Tablet (Jardiance)Indica tions:Type 2 diabetes mellitus with hemoglobin A1c goal of 7.0%-8.0% (HCC) Take 1 Tablet by mouth in the morning. 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 18 g 1 07/03/20 24 Active Benzonatate 100 MG Oral Capsule (Tessalon Perles)Indication s:Bronchitis, complicated Take 1 Capsule by mouth 3 times a day as needed for Cough. Do not cut, crush, or chew. 50 Capsule 1 07/03/20 24 2023 Discontinued Azithromycin 250 MG Oral Tablet (Zithromax Z-Kyle)Indications :Bronchitis, complicated Take two tablets by mouth on first day, then 1 tablet daily until gone 6 Tablet 07/03/20 24 2023 Discontinued(M edication List Clean Up) Hospital, Clinic, or Other Facility Administered Medication Ordered Dose Route Frequency Start Date End Date Status potassium chloride ER tab 10 mEqIndications:Acute on chronic diastolic congestive heart failure (HCC) 10 mEq OR Daily(AM) 12/24/2019 Activ e documented as of this encounter (statuses as of 08/05/2024) Active Problems Problem Noted Date Diagnosed Date [...] macular edema, left eye 12/28/2020 Atherosclerosis of [place] 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 Nausea without vomiting 05/18/2016 0806/2019 Hyponatremia 05/18/2016 07/26/2021 Nummular eczema 09/06/2013 07/26/2021 [employer] Other*[id number] 02/03/2012 11/29/2016 Overview: Study Titile: Genomics Markers for Patients with Cardiovascular Disease Project # [id number] PI: Merary Rivera MD Please call [phone] with study related questions Irritable bowel syndrome 05/14/201001/2021 Type 2 diabetes mellitus wit h hemoglobin A1c goal of less than 7.0% 08/06/2009 01/08/2010 Overview: Modified per Diabetes protocol #14. ICD-10 update of inactive term ADVANCE DIRECTIVE INFORMATION 09/27/2007 07/26/2021 Overview: Yes-copy on file Carpal tunnel syndrome 04/14/200404/01 Atherosclerosis of [place] co ronary artery of [place] heart without angina pectoris 04/14/2004 Overview: Duplicate. [...] as of this encounter (statuses as of 08/05/2024) Immunizations Name Administration Dates Next Due COVID-19 mRNA, LNP-s, No Pre serve, 2-Dose Series (Pfizer) 06/22/2021,05/08/2021 Pneumococcal Conjugate Vacc, 13 Valent (Prevnar) 08/12/2016 Pneumococcal Polysaccharide PPV23 (Pneumovax) ,07/20/2005 Seasonal Influenza Vac., MDV, IM, 0.5 mL (Fluzon e) 08/04/2006 Seasonal Influenza, Quadrivalent Hd (Fluzone Hd) 08/30/2023,09/23/2022 Seasonal Influenza, Trivalen t, Adjuvanted, 65+ YRS, PF, (Fluad) 10/01/2019 TD, Preservative Free 01/26/2009 documented as of this encounter Social History Tobacco Use Types Packs/Day Years Used Date Smoking Tobacco: Never Passive Smoke Exposure: Never Smokeless Tobacco: Never Tobacco Cessation:Counseling Given: Not Answered Alcohol Use Standard Drinks/Week Comments No 0 [...] Sign Reading Time Taken Comments Blood Pressure 160/86 07/10/2024 1:17 PM EDT Pulse 88 07/10/2024 1:17 PM EDT Temperature 37.1 C (98.8 F) 07/10/2024 1:17 PM ED T Respiratory Rate 16 07/10/2024 1:17 PM EDT Oxygen Saturation 98% 07/10/2024 1:17 PM EDT Inhaled Oxygen Concentration - - Weight - - Height - - Body Mass Index - - documented in this encounter Nursing Notes * Jill Butler LPN - 07/10/2024 1:17 PM EDT Patient arrived Chair 7 for IV therapy Reclast. Vital signs are stable. IV access successful at theleft metacarpal vein. IV line flushed with ease; positive blood return; IV fluids connected and infusing. Acetaminophen 650mg was held due to the patient had already taken 1,000mg of Tylenol at noon.Call mathew within reach. Patient instructed on use of heat and massage functions where applicable. Patient shown how to operate the heat function of the chair and to alert nursing staff if the chair feels too warm. Patient instructed on the risk of potential zhao while using the heat function. 1440 - Patient completed IV therapy. IV access discontinued; site cleaned and bandaged. Patient discharged in stable condition. documented in this encounter Plan of Treatment Upcoming Encounters Date Type Department Care Team (Late st Contact Info) Description 08/13/2024 11:00 AM EDT Anticoagulation Pharmacy, [place] [address] [facility], [place] [address] [place] [address] [address] [facility] [address] 08/26/2024 10:20 AM EST Office Visit Family [facility], [place] [address] [facility] [address] Pete Ambriz MD [address] [facility] [address] 09/02/2024 10:00 AM EST Office Visit Cardiology, [facility] [address] [place] [address] [place] Momin PA-C [facility] [address] 09/02/2024 10:00 AM EST Cardiac Studies Cardiology, [facility] [address] [place] [address] [facility] [address] 10/01/2024 10:00 AM EST Office Visit Pharmacy, [place] [address] [facility] [address] [place] [address] [address] [facility] [address] 10/01/2024 10:30 AM EST Anticoagulation Pharmacy, [place] [address] [facility] [address] [facility] [address] [facility] [facility] [address] 05/14/2025 10:00 AM EDT Nurse Only Ancillary Department, [place] [address] [facility] [address] [place], Nurse Annual Wellness [address] [facility] [place] [address] Scheduled Procedures Name Priority Associated Diagnoses Date/Ti [...] Additional history exists CKD HGB USE SMARTSET 43793 01/28/202501/28, 01/29/2024, 12/27/2023, Additional history exists CKD PHOS USE SMARTSET 97406 01/28/2025 04/0 05/2024, 02/01/2023, 07/29/2022, Additional history [...] D LEVEL ONCE IN A LIFETIME-USE SMARTSET# [id number] Completed 07/03/2024, 08/28/2008, 04/07/2008, Additional history exists [...] as of this encounter Visit Diagnoses Diagnosis Age-related osteoporosis without current pathological fracture- Primary Senile osteoporosis documented in this encounter Administered Medications Inactive Administered Medications - up to 3 most recent administrations Medication Order MAR Action Action Date Dose Rate Site NSS infusion Intravenous, at 50 mL/hr, PRN, Starting on Mon07/10/24 at 1415, Until Mon07/10/24 at 1853, Maintenance line Start Infusion 07/10/2024 1:12 PM EDT 50 mL/hr Zoledronic Acid (Reclast) 5 mg in 100 mL PREMIX ivpb 5 mg, IV Piggyback, ONCE, 1 dose, On Mon07/10/24 at 1415, Administer over 45 minutes for 1st infusion and 30 minutes for subsequent. Start Infusion 07/10/2024 1:14 PM EDT 5 mg 133.33 mL/hr documented in this encounter Advance Directives * No Code Status (Latest Code Status on File) Date Activated Date Inactivated Comments 01/11/2005 2:56 PM 01/11/2005 3:56 PM Care Teams Soda Dry House Operator Relationship Specialty Start Date End Date Pete Ambriz MD [address] [place] [address] PCP - General Internal Medicine 05/08/24 documented as of this encounter
--- OUTSIDE RECORDS SUMMARY | 2024-10-24 23:40 | External Medical Summary | Summary of Care ---
Author Name Unknown Organization [facility] Address [address] [facility] [place] [address] Phone [phone] Care Team Providers Care Tiler'S Assistant Name Role Phone Pete Ambriz MD Primary Care Provider [phone] Reason for Visit * Reason Comments Cardiac Rehab Encounter Details Date Type Department Care Team (Late st Contact Info) Description 07/30/2024 8:00 AM EDT Telemedicine Cardiac Rehab [facility], Virtual [address] [place] [address] [place] [address] Advanced, Virtual Cardiac Rehab [address] [place] [address] [place] [address] Aortocoronary bypass status* Allergies Active Allergy Reactions [...] on management encounter,Aortocoro nary bypass status,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),half-way current use of anticoagulant therapy TAKE 1/2 TO 1 TABLET BY MOUTH ONCE DAILY DIRECTED BY COUMADIN CLINIC 90 Tablet 3 4 Active metFORMIN HCl ER 500 MG Oral Tablet Extended Release 24 Hour (Glucophage XR)Indications:Type 2 diabetes mellitus with hemoglobin A1c goal of 7.0%-8.0% ([facility]) TAKE 2 TABLETS BY MOUTH DAILY WITH MEALS Patient takes one once per day 4 Active Repaglinide 1 MG Oral Tablet (Prandin)Indication s:Type 2 diabetes mellitus with hemoglobin A1c goal of 7.0%-8.0% ([facility]) Take 1 Tablet by mouth in the [...] macular edema, left eye 12/28/2020 Atherosclerosis of [place] co ronary artery of [place] heart without angina pectoris 12/19/2019 Persistent atrial fibrillation 11/28/2019 HTN, goal below 130/80 04/26/2019 Type 2 diabetes mellitus with diabetic neuropath y 02/11/2019 Chronic diarrhea 05/14/2010 Type 2 diabetes mellitus wit h hemoglobin A1c goal of 7.0%-8.0% 01/08/2010 Overview: ICD-10 update of inactive term DYSLIPIDEMIA, GOAL LDL BELOW 70 10/12/2009 Overview: Per Lipid Taxonomy. 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 ICD-10 update of inactive term ADVANCE DIRECTIVE INFORMATION 09/27/2007 07/26/2021 Overview: Yes-copy on file Carpal tunnel syndrome 04/14/200404/01 Atherosclerosis of [place] co ronary artery of [place] heart without angina pectoris 04/14/2004 Overview: Duplicate. [...] mRNA, LNP-s, No Pre serve, 2-Dose Series ([employer]) 06/22/2021,05/08/2021 Pneumococcal Conjugate Vacc, 13 Valent (Prevnar) [...] Hali De La Torre EPC - 08/07/2024 10:25 AM EDT Session Encounter: Patient is participating in [facility] in partnership with [employer] is a specialized company that specializes in providing virtual cardiac rehab services. Session #46 completed. Please refer to scan document for session details. Session type: Exercise Group Session duration: 60 minutes documented in this encounter Plan of Treatment Upcoming Encounters Date Type Department Care Team (Late st Contact Info) Description 08/13/2024 11:00 AM EDT Anticoagulation Pharmacy, [place] [address] [place] [facility] [place] [address] [facility] [address] [place] [address] 08/26/2024 10:20 AM EST Office Visit [place] [address] [address] [facility] [address] Pete Ambriz MD [address] [place] [address] 09/02/2024 10:00 AM EST Office Visit Cardiology, [facility] [address] [facility] [place] [address] [place] Momin PA-C [address] [place] [address] 09/02/2024 10:00 AM EST Cardiac Studies Cardiology, [facility] [place] [address] [facility] [address] [facility] [place] [address] 10/01/2024 10:00 AM EST Office Visit Pharmacy, [place] [address] [facility], [place] [address] [facility] [address] [facility], [place] [address] 10/01/2024 10:30 AM EST Anticoagulation Pharmacy, [place] [address] [place] [facility] [place] [address] [facility] [address] [facility], [place] [address] 05/14/2025 10:00 AM EDT Nurse Only Ancillary Department, [place] [address] [facility], [place] [address] [place], Nurse Annual Wellness [address] [facility], [place] [address] Scheduled Procedures Name Priority Associated Diagnoses Date/Ti [...] Additional history exists CKD HGB USE SMARTSET 45204 01/28/202501/28, 01/29/2024, 12/27/2023, Additional history exists CKD PHOS USE SMARTSET 36724 01/28/20250 05/2024, 02/01/2023, 07/29/2022, Additional history exists [...] D LEVEL ONCE IN A LIFETIME-USE SMARTSET# [id number] Completed 07/03/2024, 08/28/2008, 04/07/2008, Additional history exists [...] 2:56 PM 01/11/2005 3:56 PM Care Teams Tiler'S Assistant Relationship Specialty Start Date End Date Pete Ambriz MD [address] [place] [address] PCP - General Internal Medicine 05/08/24 documented as of this encounter
--- OUTSIDE RECORDS SUMMARY | 2024-10-24 23:40 | External Medical Summary | Summary of Care ---
Author Name Unknown Organization [facility] Address [address] [facility] [place] [address] Phone [phone] Care Team Providers Care Marble Mechanic Helper Name Role Phone Pete Ambriz MD Primary Care Provider [phone] Reason for Visit * Reason Comments Cardiac Rehab Encounter Details Date Type Department Care Team (Late st Contact Info) Description 07/29/2024 10:00 AM EDT Telemedicine Cardiac Rehab [facility], Virtual [address] [place] [address] [place] [address] Advanced, Virtual Cardiac Rehab [address] [place] [address] [place] [address] Aortocoronary bypass status* Allergies Active Allergy Reactions [...] on management encounter,Aortocoro nary bypass status,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),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 TAKE [...] macular edema, left eye 12/28/2020 Atherosclerosis of [place] co ronary artery of [place] heart without angina pectoris 12/19/2019 Persistent atrial [...] Nummular eczema 09/06/2013 07/26/2021 [employer] Other*[id number] 02/03/2012 11/29/2016 Overview: Study Titile: [employer] Markers for Patients with Cardiovascular Disease Project # [id number] PI: Merary Rivera MD Please call [phone] with study related questions Irritable bowel syndrome 05/14/201001/2021 Type 2 diabetes mellitus wit h hemoglobin A1c goal of less than 7.0% 08/06/2009 01/08/2010 Overview: Modified per Diabetes protocol #14. ICD-10 update of inactive term ADVANCE DIRECTIVE INFORMATION 09/27/2007 07/26/2021 Overview: Yes-copy on file Carpal tunnel syndrome 04/14/200404/01 Atherosclerosis of [place] co ronary artery of [place] heart without angina pectoris 04/14/2004 Overview: Duplicate. [...] Hali De La Torre EPC - 08/07/2024 10:24 AM EDT Session Encounter: [facility] in partnership with [employer] is a [employer] that specializes in providing virtual cardiac rehab services. Session #45 completed. Please refer to scan document for session details. Session type: Education Group Session duration: 60 minutes * Hali De La Torre EPC - 08/07/2024 10:24 AM EDT Session Encounter: Patient is participating in [facility] Int[facility] in partnership with [employer] is a specialized [employer] that specializes in providing virtual cardiac rehab services. Session #44 completed. Please refer to scan document for session details. Session type: Education Group Session duration: 60 minutes documented in this encounter Plan of Treatment Upcoming Encounters Date Type Department Care Team (Late st Contact Info) Description 08/13/2024 11:00 AM EDT [facility], [place] [address] [address] [facility] [address] [facility] [address] [facility] [address] 08/26/2024 10:20 AM EST Office Visit Family [facility], [place] [address] [address] [facility] [address] Pete Ambriz MD [address] [facility] [address] 09/02/2024 10:00 AM EST Office Visit Cardiology, [facility] [address] [place] [address] [place] Momin [place] [address] [place] [address] 09/02/2024 10:00 AM EST Cardiac Studies Cardiology, [facility] [address] [facility] [place] [address] [place], [facility]er [facility] [address] [place] [address] 10/01/2024 10:00 AM EST Office Visit Pharmacy, [place] [address] [address] [facility], [place] [address] [facility] [address] [facility], [place] [address] 10/01/2024 10:30 AM EST Anticoagulation Pharmacy, [place] [address] [facility], [place] [address] [facility] [address] [facility], [place] [address] 05/14/2025 10:00 AM EDT Nurse Only Ancillary Department, [place] [address] [address] [facility], [place] [address] [place], Nurse Annual Wellness [address] [facility] [address] Scheduled Procedures Name Priority Associated Diagnoses Date/Ti [...] Additional history exists CKD HGB USE SMARTSET 24015 01/28/202501/28, 01/29/2024, 12/27/2023, Additional history exists CKD PHOS USE SMARTSET 35067 01/28/2025 04/0 05/2024, 02/01/2023, 07/29/2022, Additional history [...] D LEVEL ONCE IN A LIFETIME-USE SMARTSET# 23390 Completed 07/03/2024, 08/28/2008, 04/07/2008, Additional history exists [...] 2:56 PM 01/11/2005 3:56 PM Care Teams Marble Mechanic Helper Relationship Specialty Start Date End Date Pete Ambriz MD [address] [place] [address] PCP - General Internal Medicine 05/08/24 documented as of this encounter
--- OUTSIDE RECORDS SUMMARY | 2024-10-24 23:40 | External Medical Summary | Summary of Care ---
Author Name Unknown Organization [facility] Address [address] [facility] [place] [address] Phone [phone] Care Team Providers Care Mechanical Shop Laborer Name Role Phone Pete Ambriz MD Primary Care Provider [phone] Reason for Visit * Reason Comments Cardiac Rehab Encounter Details Date Type Department Care Team (Late st Contact Info) Description 08/02/2024 9:00 AM EDT Telemedicine Cardiac Rehab [facility], Virtual [address] [place] [address] [place] [address] Advanced, Virtual Cardiac Rehab [address] [place] [address] [place] [address] Aortocoronary bypass status* Allergies Active Allergy Reactions [...] on management encounter,Aortocoro nary bypass status,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),snf current use of anticoagulant therapy TAKE 1/2 TO 1 TABLET BY MOUTH ONCE DAILY DIRECTED BY COUMADIN CLINIC 90 Tablet 3 4 Active metFORMIN HCl ER 500 MG Oral Tablet Extended Release 24 Hour (Glucophage XR)Indications:Type 2 diabetes mellitus with hemoglobin A1c goal of 7.0%-8.0% ([facility]) TAKE 2 TABLETS BY MOUTH DAILY WITH MEALS Patient takes one once per day 4 Active Repaglinide 1 MG Oral Tablet (Prandin)Indication s:Type 2 diabetes mellitus with hemoglobin A1c goal of 7.0%-8.0% ([facility]) Take 1 Tablet by mouth [...] macular edema, left eye 12/28/2020 Atherosclerosis of [place] ronary artery of [place] heart without angina pectoris 12/19/2019 Persistent atrial fibrillation 11/28/2019 HTN, goal below 130/80 04/26/2019 Type 2 diabetes mellitus with diabetic neuropath y 02/11/2019 Chronic diarrhea 05/14/2010 Type 2 diabetes mellitus wit h hemoglobin A1c goal of 7.0%-8.0% 01/08/2010 Overview: ICD-10 update of inactive term DYSLIPIDEMIA, GOAL LDL BELOW 70 10/12/2009 Overview: Per Lipid Taxonomy. 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 ICD-10 update of inactive term ADVANCE DIRECTIVE INFORMATION 09/27/2007 07/26/2021 Overview: Yes-copy on file Carpal tunnel syndrome 04/14/200404/01 Atherosclerosis of [place] ronary artery of [place] heart without angina pectoris 04/14/2004 Overview: Duplicate. [...] mRNA, LNP-s, No Pre serve, 2-Dose Series ([employer]) 06/22/2021,05/08/2021 Pneumococcal Conjugate Vacc, 13 Valent (Prevnar) [...] Hali De La Torre EPC - 08/07/2024 10:28 AM EDT Session Encounter: [facility] in partnership with [employer] is a specialized [employer] that specializes in providing virtual cardiac rehab services. Session #51 completed. Please refer to scan document for session details. Session type: Education Group Session duration: 60 minutes * Hali De La Torre EPC - 08/07/2024 10:28 AM EDT Session Encounter: [facility] is participating [facility] in partnership with [employer] is a specialized [employer] that specializes in providing virtual cardiac rehab services. Session #50 completed. Please refer to scan document for session details. Session type: Education Group Session duration: 60 minutes documented in this encounter Plan of Treatment Upcoming Encounters Date Type Department Care Team (Late st Contact Info) Description 08/13/2024 11:00 AM EDT [facility] [place] [address] [facility] [address] [facility] [address] [facility] [address] 08/26/2024 10:20 AM EST Office Visit [facility] [place] [address] [facility] [phone] Pete Ambriz MD [address] [facility] [address] 09/02/2024 10:00 AM EST Office Visit Cardiology, [address] [place] [address] [place] Momin PA-C [address] [place], [place] [address] 09/02/2024 10:00 AM EST Cardiac Studies Cardiology, [facility] [address] [place] [address] [place], Pacer [facility] [address] [place] [address] 10/01/2024 10:00 AM EST Office Visit Pharmacy, [place] [address] [facility], [place] [address] [facility] [address] [facility], [place] [address] 10/01/2024 10:30 AM EST Anticoagulation Pharmacy, [place] [address] [facility], [place] [address] [facility] [address] [facility], [place] [address] 05/14/2025 10:00 AM EDT Nurse Only Ancillary Department, [place] [address] [facility], [place] [address] [place], Nurse Annual Wellness [address] [facility], [place] [address] Scheduled Procedures Name Priority Associated Diagnoses Date/Ti me COLONOSCOPY FLEXIBLE PROXIMA L DIAGNOSTIC Recall History of colonic polyps Health Maintenance Due Date Last Done Comments Colonoscopy 02/07/2022 02/07/2019, 01/21, 03/18/2010 COVID-19 Vaccine ( season) 2024 06/22/2021, 05/08/2021 HbA1c 11/24/2024 05/24/2024, 05/2024, 07/25/2023, Additional history exists GFR 12/31/2024 07/03/2024, 08/0 11/2023, 12/27/2023, Additional history exists B-12 01/28/2025 01/29/2024, 01/21, 07/29/2022, Additional history exists CKD HGB USE SMARTSET 85480 01/28/202501/28, 01/29/2024, 12/27/2023, Additional history exists CKD PHOS USE SMARTSET 00438 01/28/2025 04/0 05/2024, 02/01/2023, 07/29/2022, Additional history [...] D LEVEL ONCE IN A LIFETIME-USE SMARTSET# [id number] Completed 07/03/2024, 08/28/2008, 04/07/2008, Additional history exists [...] 2:56 PM 01/11/2005 3:56 PM Care Teams Mechanical Shop Laborer Relationship Specialty Start Date End Date Pete Ambriz MD [address] [place] [facility] [place] [address] PCP - General Internal Medicine 05/08/24 documented as of this encounter
--- OUTSIDE RECORDS SUMMARY | 2024-10-24 23:40 | External Medical Summary | Summary of Care ---
Author Name Unknown Organization [facility] Address [address] [facility] [place] [address] Phone [phone] Care Team Providers Care Label Sewer Name Role Phone Pete Ambriz MD Primary Care Provider [phone] Reason for Visit * Reason Comments Cardiac Rehab Encounter Details Date Type Department Care Team (Late st Contact Info) Description 07/29/2024 10:00 AM EDT Telemedicine Cardiac Rehab [facility], Virtual [address] [place] [address] [place] [address] Advanced, Virtual Cardiac Rehab [address] [place] [address] [place] [address] Aortocoronary bypass status* Allergies Active Allergy Reactions [...] on management encounter,Aortocoro nary bypass status,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 Vitamin D deficiency 12/12/2007 halfway current use of anticoagulant therapy 0 05/27/2005 [...] Nummular eczema 09/06/2013 07/26/2021 [employer] Other*[id number] 02/03/2012 11/29/2016 Overview: Study Titile: [employer] Markers for Patients with Cardiovascular Disease Project # [id number] PI: Merary Rivera MD Please call [phone] with study related questions Irritable bowel syndrome 05/14/201001/2021 Type 2 diabetes mellitus wit h hemoglobin A1c goal of less than 7.0% 08/06/2009 01/08/2010 Overview: Modified per Diabetes protocol #14. ICD-10 update of inactive term ADVANCE DIRECTIVE INFORMATION 09/27/2007 07/26/2021 Overview: Yes-copy on file Carpal tunnel syndrome 04/14/200404/01 Atherosclerosis of [place] co ronary artery of [place] heart without angina pectoris 04/14/2004 Overview: Duplicate. [...] EDT Session Encounter: [facility] in partnership with [employer] is a [employer] that specializes in providing virtual cardiac rehab services. Session #45 completed. Please refer to scan document for session details. Session type: Education Group Session duration: 60 minutes * Hali De La Torre EPC - 08/07/2024 10:24 AM EDT Session Encounter: Patient is participating in [facility] in partnership with [employer] is a specialized [employer] that specializes in providing virtual cardiac rehab services. Session #44 completed. Please refer to scan document for session details. Session type: Education Group Session duration: 60 minutes documented in this encounter Plan of Treatment Upcoming Encounters Date Type Department Care Team (Late st Contact Info) Description 08/13/2024 11:00 AM EDT [facility] [place] [address] [facility] [address] [facility] [address] [facility] [address] 08/26/2024 10:20 AM EST [facility] [place] [address] [facility] [phone] Pete Ambriz MD [address] [facility] [address] 09/02/2024 10:00 AM EST Office Visit Cardiology, [facility] [address] [place] [address] [place] Momin [place] [address] [place] [address] 09/02/2024 10:00 AM EST Cardiac Studies Cardiology, [facility] [address] [facility] [place] [address] [place], Pacer [facility] [address] [place] [address] 10/01/2024 10:00 AM EST Office Visit Pharmacy, [place] [address] [address] [facility], [place] [address] [facility] [address] [facility], [place] [address] 10/01/2024 10:30 AM EST Anticoagulation Pharmacy, [place] [address] [facility], [place] [address] [facility] [address] [facility], [place] [address] 05/14/2025 10:00 AM EDT Nurse Only Ancillary Department, [place] [address] [address] [facility], [place] [address] [place], Nurse Annual Well[facility] [address] [facility] [address] Scheduled Procedures Name Priority Associated Diagnoses Date/Ti [...] Additional history exists CKD HGB USE SMARTSET 47152 01/28/202501/28, 01/29/2024, 12/27/2023, Additional history exists CKD PHOS USE SMARTSET 70992 01/28/2025 04/0 05/2024, 02/01/2023, 07/29/2022, Additional history [...] D LEVEL ONCE IN A LIFETIME-USE SMARTSET# [id number] Completed 07/03/2024, 08/28/2008, 04/07/2008, Additional history exists [...] 2:56 PM 01/11/2005 3:56 PM Care Teams Label Sewer Relationship Specialty Start Date End Date Pete Ambriz MD [address] [place] [address] PCP - General Internal Medicine 05/08/24 documented as of this encounter
--- OUTSIDE RECORDS SUMMARY | 2024-10-24 23:40 | External Medical Summary | Summary of Care ---
Author Name Unknown Organization [facility] Address [address] [facility] [place] [address] Phone [phone] Care Team Providers Care Signs And Displays Salesperson Name Role Phone Pete Ambriz MD Primary Care Provider [phone] Reason for Visit * Reason Comments Cardiac Rehab Encounter Details Date Type Department Care Team (Late st Contact Info) Description 07/31/2024 8:00 AM EDT Telemedicine Cardiac Rehab [facility], Virtual [address] [place] [address] [place] [address] Advanced, Virtual Cardiac Rehab [address] [place] [address] [place] [address] Aortocoronary bypass status* Allergies Active Allergy Reactions [...] on management encounter,Aortocoro nary bypass status,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),group home current use of anticoagulant therapy TAKE 1/2 TO 1 TABLET BY MOUTH ONCE DAILY DIRECTED BY COUMADIN CLINIC 90 Tablet 3 4 Active metFORMIN HCl ER 500 MG Oral Tablet Extended Release 24 Hour (Glucophage XR)Indications:Type 2 diabetes mellitus with hemoglobin A1c goal of 7.0%-8.0% ([facility]) TAKE 2 TABLETS BY MOUTH DAILY WITH MEALS Patient takes one once per day 4 Active Repaglinide 1 MG Oral Tablet (Prandin)Indication s:Type 2 diabetes mellitus with hemoglobin A1c goal of 7.0%-8.0% ([facility]) Take 1 Tablet by mouth in the [...] macular edema, left eye 12/28/2020 Atherosclerosis of [place] co ronary artery of [place] heart without angina pectoris 12/19/2019 Persistent atrial fibrillation 11/28/2019 HTN, goal below 130/80 04/26/2019 Type 2 diabetes mellitus with diabetic neuropath y 02/11/2019 Chronic diarrhea 05/14/2010 Type 2 diabetes mellitus wit h hemoglobin A1c goal of 7.0%-8.0% 01/08/2010 Overview: ICD-10 update of inactive term DYSLIPIDEMIA, GOAL LDL BELOW 70 10/12/2009 Overview: Per Lipid Taxonomy. 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 ICD-10 update of inactive term ADVANCE DIRECTIVE INFORMATION 09/27/2007 07/26/2021 Overview: Yes-copy on file Carpal tunnel syndrome 04/14/200404/01 Atherosclerosis of [place] co ronary artery of [place] heart without angina pectoris 04/14/2004 Overview: Duplicate. [...] mRNA, LNP-s, No Pre serve, 2-Dose Series ([employer]) 06/22/2021,05/08/2021 Pneumococcal Conjugate Vacc, 13 Valent (Prevnar) [...] Hali De La Torre EPC - 08/07/2024 10:26 AM EDT Session Encounter: [facility] in partnership with [employer] is a specialized company that specializes in providing virtual cardiac rehab services. Session #47 completed. Please refer to scan document for session details. Session type: Exercise Individual Session duration: 35 minutes documented in this encounter Plan of Treatment Upcoming Encounters Date Type Department Care Team (Late st Contact Info) Description 08/13/2024 11:00 AM EDT Anticoagulation Pharmacy, [place] [address] [place] [place] [address] [facility] [address] [place] [facility] [place] [address] 08/26/2024 10:20 AM EST Office Visit [place] [address] [address] [facility] [phone] Pete Ambriz MD [address] [place] [facility] [place] [address] 09/02/2024 10:00 AM EST Office Visit Card[facility], [facility] [address] [facility] [place] [address] [place] Momin PA-C [address] [place] [address] 09/02/2024 10:00 AM EST [facility]iac Studies [facility] [place] [address] [facility] [address] [facility] [place] [address] 10/01/2024 10:00 AM EST Office Visit Pharmacy, [place] [address] [facility], [place] [address] [facility] [address] [facility], [place] [address] 10/01/2024 10:30 AM EST Anticoagulation Pharmacy, [place] [address] [place] [facility] [place] [address] [facility] [address] [facility], [place] [address] 05/14/2025 10:00 AM EDT Nurse Only Ancillary Department, [place] [address] [address] [facility], [place] [address] [place], Nurse Annual Wellness [address] [facility], [place] [address] Scheduled Procedures Name Priority Associated Diagnoses Date/Ti [...] Additional history exists CKD HGB USE SMARTSET 61686 01/28/202501/28, 01/29/2024, 12/27/2023, Additional history exists CKD PHOS USE SMARTSET 10971 01/28/20250 05/2024, 02/01/2023, 07/29/2022, Additional history exists [...] D LEVEL ONCE IN A LIFETIME-USE SMARTSET# [id number] Completed 07/03/2024, 08/28/2008, 04/07/2008, Additional history exists [...] 2:56 PM 01/11/2005 3:56 PM Care Teams Signs And Displays Salesperson Relationship Specialty Start Date End Date Pete Ambriz MD [address] [place] [address] PCP - General Internal Medicine 05/08/24 documented as of this encounter
--- OUTSIDE RECORDS SUMMARY | 2024-10-24 23:40 | External Medical Summary | Summary of Care ---
Author Name Unknown Organization [facility] Address [address] [facility] [place] [address] Phone [phone] Care Team Providers Care Lye Treater Name Role Phone Pete Ambriz MD Primary Care Provider [phone] Reason for Visit * Reason Comments Cardiac Rehab Encounter Details Date Type Department Care Team (Late st Contact Info) Description 07/29/2024 9:00 AM EDT Telemedicine Cardiac Rehab [facility], Virtual [address] [place] [address] [place] [address] Advanced, Virtual Cardiac Rehab [address] [place] [address] [place] [address] Aortocoronary bypass status* Allergies Active Allergy Reactions [...] on management encounter,Aortocoro nary bypass status,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),long-term current use of [...] macular edema, left eye 12/28/2020 Atherosclerosis of [place] co ronary artery of [place] heart without angina pectoris 12/19/2019 Persistent atrial [...] Nummular eczema 09/06/2013 07/26/2021 [employer] Other*[id number] 02/03/2012 11/29/2016 Overview: Study Titile: [employer] Markers for Patients with Cardiovascular Disease Project # [id number] PI: Merary Rivera MD Please call [phone] with study related questions Irritable bowel syndrome 05/14/201001/2021 Type 2 diabetes mellitus wit h hemoglobin A1c goal of less than 7.0% 08/06/2009 01/08/2010 Overview: Modified per Diabetes protocol #14. ICD-10 update of inactive term ADVANCE DIRECTIVE INFORMATION 09/27/2007 07/26/2021 Overview: Yes-copy on file Carpal tunnel syndrome 04/14/200404/01 Atherosclerosis of [place] co ronary artery of [place] heart without angina pectoris 04/14/2004 Overview: Duplicate. [...] Hali De La Torre EPC - 08/07/2024 10:23 AM EDT Session Encounter: Patient is participating in [facility] Intensive Cardiac Rehab Program in partnership with [employer] is a specialized company that specializes in providing virtual cardiac rehab services. Session #43 completed. Please refer to scan document for session details. Session type: Education Individual Session duration: 35 minutes documented in this encounter Plan of Treatment Upcoming Encounters Date Type Department Care Team (Late st Contact Info) Description 08/13/2024 11:00 AM EDT [facility]ticoagulation Pharm[facility], [place] [address] [address] [facility] [address] [facility] [address] [facility] [address] 08/26/2024 10:20 AM EST Office Visit Family Practice, [place] [address] [address] [facility] [phone] Pete Ambriz MD [address] [facility] [address] 09/02/2024 10:00 AM EST Office Visit Cardiology, [facility] 132 [facility] [place] [address] [place] Momin PA-C 132 [facility] [place] [address] 09/02/2024 10:00 AM EST Cardiac Studies Cardiology, [facility] [address] [facility] [place] [address] [facility] 132 [facility] [place] [address] 10/01/2024 10:00 AM EST Office Visit Pharmacy, [place] [address] [address] [facility] [address] [facility] [address] [facility], [place] [address] 10/01/2024 10:30 AM EST Anticoagulation Pharmacy, [place] [address] [facility], [place] [address] [facility] [address] [facility] [address] 05/14/2025 10:00 AM EDT Nurse Only Ancillary Department, [place] [address] [address] [facility] [address] [place], Nurse [facility] Well[facility] [address] [facility] [address] Scheduled Procedures Name Priority Associated Diagnoses Date/Ti [...] Additional history exists CKD HGB USE SMARTSET 56701 01/28/202501/28, 01/29/2024, 12/27/2023, Additional history exists CKD PHOS USE SMARTSET 45455 01/28/2025 040 05/2024, 02/01/2023, 07/29/2022, Additional history [...] D LEVEL ONCE IN A LIFETIME-USE SMARTSET# 78237 Completed 07/03/2024, 08/28/2008, 04/07/2008, Additional history exists [...] 2:56 PM 01/11/2005 3:56 PM Care Teams Lye Treater Relationship Specialty Start Date End Date Pete Ambriz MD [address] [place] [address] PCP - General Internal Medicine 05/08/24 documented as of this encounter
--- OUTSIDE RECORDS SUMMARY | 2024-10-24 23:41 | External Medical Summary | Summary of Care ---
Author Name Unknown Organization [facility] Address [address] [facility] [place] [address] Phone [phone] Care Team Providers Care Supply Crib Attendant Name Role Phone Pete Ambriz MD Primary Care Provider [phone] Reason for Visit * Reason Comments Cardiac Rehab Encounter Details Date Type Department Care Team (Late st Contact Info) Description 07/15/2024 9:00 AM EDT Telemedicine Cardiac Rehab [facility], Virtual [address] [place] [address] [place] [address] Advanced, Virtual Cardiac Rehab [address] [place] [address] [place] [address] Aortocoronary bypass status* Allergies Active Allergy Reactions Criticality Noted Date Comments Cephalexin Unknown 09/12/2002 Lisinopril 12/07/2018 Cough Oxycodone 12/04/2003 nausea, stomach pains Tetanus Toxoid 01/28/2009 Local reaction, fever documented as of this encounter (statuses as of 07/25/2024) Medications Medication Sig Dispensed Refills Start Date [...] management encounter,Aortocoro nary bypass status,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 Do not cut, crush, or chew. 50 Capsule 1 4 Active Hospital, Clinic, or Other Facility Administered Medication Ordered Dose Route Frequency Start Date End Date Status potassium chloride ER tab 10 mEqIndications:Acute on chronic diastolic congestive heart failure (HCC) 10 mEq OR Daily(AM) 12/24/2019 Activ e documented as of this encounter (statuses as of 07/25/2024) Active Problems Problem Noted Date Diagnosed Date [...] macular edema, left eye 12/28/2020 Atherosclerosis of [place] ronary artery of [place] heart without angina pectoris 12/19/2019 Persistent atrial fibrillation 11/28/2019 HTN, goal below 130/80 04/26/2019 Type 2 diabetes mellitus with diabetic neuropath y 02/11/2019 Chronic diarrhea 05/14/2010 Type 2 diabetes mellitus wit h hemoglobin A1c goal of 7.0%-8.0% 01/08/2010 Overview: ICD-10 update of inactive term DYSLIPIDEMIA, GOAL LDL BELOW 70 10/12/2009 Overview: Per Lipid Taxonomy. 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 Pulmonary hypertension DISH (diffuse idiopathic skeletal hyperostosis) documented as of this encounter (statuses as of 07/25/2024) Resolved Problems Problem Noted Date Diagnosed Date [...] Nummular eczema 09/06/2013 07/26/2021 [employer] Other*[id number] 02/03/2012 11/29/2016 Overview: Study Titile: [employer] Markers for Patients with Cardiovascular Disease Project # [id number] PI: Merary Rivera MD Please call [phone] with study related questions Irritable bowel syndrome 05/14/201001/2021 Type 2 diabetes mellitus wit h hemoglobin A1c goal of less than 7.0% 08/06/2009 01/08/2010 Overview: Modified per Diabetes protocol #14. ICD-10 update of inactive term ADVANCE DIRECTIVE INFORMATION 09/27/2007 07/26/2021 Overview: Yes-copy on file Carpal tunnel syndrome 04/14/200404/01 Atherosclerosis of [place] ronary artery of [place] heart without angina pectoris 04/14/2004 Overview: Duplicate. [...] as of this encounter (statuses as of 07/25/2024) Immunizations Name Administration Dates Next Due COVID-19 [...] * Hali De La Torre EPC - 07/25/2024 9:30 AM EDT Session Encounter: Patient is participating in [facility]'s Intensive Cardiac Rehab Program in partnership with [employer] is a specialized [employer] that specializes in providing virtual cardiac rehab services. Session #34 completed. Please refer to scan document for session details. Session type: Education Individual Session duration: 35 minutes documented in this encounter Plan of Treatment Upcoming Encounters Date Type Department Care Team (Late st Contact Info) Description 08/13/2024 11:00 AM EDT [facility]tico[facility], [place] [address] [facility] [address] [place], [facility] [address] [facility] [address] 08/26/2024 10:20 AM EST Office Visit Family [facility], [place] [address] [facility] [address] Pete Ambriz MD [address] [place] [address] 09/02/2024 10:00 AM EST Office Visit Cardiology, [facility] [address] [facility] [place] [address] Dayton Momin PA-C [address] [facility] [place] [address] 09/02/2024 10:00 AM EST Cardiac Studies Cardiology, [facility] [address] [facility] [place] [address] [facility] 132 [facility] [place] [address] 10/01/2024 10:00 AM EST Office Visit Pharmacy, [place] [address] [facility], [place] [address] [facility] [address] [facility], [place] [address] 10/01/2024 10:30 AM EST Anticoagulation Pharmacy, [place] [address] [facility] [address] [facility] [address] [facility], [place] [address] 05/14/2025 10:00 AM EDT Nurse Only Ancillary Department, [place] [address] [facility], [place] [address] [place], Nurse [facility] [address] [facility] [address] Scheduled Procedures Name Priority Associated Diagnoses Date/Ti [...] Additional history exists CKD HGB USE SMARTSET 38348 01/28/202501/28, 01/29/2024, 12/27/2023, Additional history exists CKD PHOS USE SMARTSET 35469 01/28/20250 05/2024, 02/01/2023, 07/29/2022, Additional history exists Diabetic Foot Exam 04/23/2025 04/23/2024, 1 , 07/26/2021, Additional history exists Adult Wellness Visit 05/08/2025 05/08/2024, 05/05/20 23 Depression Screening 05/08/2025 05/08/2024 Albumin/Creatinine Ratio 05/24/2025 024, 07/25/2023, 02/01/2023, Additional history exists Diabetic Eye Exam 06/03/2025 06/03/2024, , 12/01/2023, Additional history exists DXA Scan 06/04/2026 06/04/2024, 02/20, 03/01/2022, Additional history exists Pneumococcal Vaccine: 65+ Years Completed 05/08/2018, 08/12/2016, 07/20/2005 VITAMIN D LEVEL ONCE IN A LIFETIME-USE SMARTSET# [id number] Completed 07/03/2024, 08/28/2008, 04/07/2008, Additional history exists [...] 2:56 PM 01/11/2005 3:56 PM Care Teams Supply Crib Attendant Relationship Specialty Start Date End Date Pete Ambriz MD [address] [place] [address] PCP - General Internal Medicine 05/08/24 documented as of this encounter
--- OUTSIDE RECORDS SUMMARY | 2024-10-24 23:41 | External Medical Summary | Summary of Care ---
Author Name Unknown Organization [facility] Address [address] [facility] [place] [address] Phone [phone] Care Team Providers Care Automatic Brine Mixer Operator Name Role Phone Pete Ambriz MD Primary Care Provider [phone] Reason for Visit * Reason Comments Cardiac Rehab Encounter Details Date Type Department Care Team (Late st Contact Info) Description 07/25/2024 8:00 AM EDT Telemedicine Cardiac Rehab [facility], Virtual [address] [place] [address] [place] [address] Advanced, Virtual Cardiac Rehab [address] [place] [address] [place] [address] Aortocoronary bypass status* Allergies Active Allergy Reactions [...] management encounter,Aortocoro nary bypass status,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),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 ICD-10 update of inactive term ADVANCE DIRECTIVE INFORMATION 09/27/2007 07/26/2021 Overview: Yes-copy on file Carpal tunnel syndrome 04/14/200404/01 Atherosclerosis of [place] co ronary artery of [place] heart without angina pectoris 04/14/2004 Overview: Duplicate. [...] Hali De La Torre EPC - 07/31/2024 10:52 PM EDT Session Encounter: Patient is participating in [facility]'s Intensive Cardiac Rehab Program in partnership with [employer] is a specialized company that specializes in providing virtual cardiac rehab services. Session #40 completed. Please refer to scan document for session details. Session type: Exercise Individual Session duration: 35 minutes documented in this encounter Plan of Treatment Upcoming Encounters Date Type Department Care Team (Late st Contact Info) Description 08/13/2024 11:00 AM EDT Anticoagulation Pharmacy, [place] [address] [address] [facility] [address] [place], [facility] [address] [facility] [address] 08/26/2024 10:20 AM EST Office Visit Family Practice, [place] [address] [facility] [address] Pete Ambriz MD [address] [facility] [address] 09/02/2024 10:00 AM EST Office Visit Cardiology, [facility] [address] [facility] [place] [address] [place] Momin PA-C 132 [facility] [place] [address] 09/02/2024 10:00 AM EST Cardiac Studies Cardiology, [facility] [address] [facility] [place] [address] [facility] 132 [facility] [place] [address] 10/01/2024 10:00 AM EST Office Visit Pharmacy, [place] [address] [facility] [address] [facility] [address] [facility], [place] [address] 10/01/2024 10:30 AM EST Anticoagulation Pharmacy, [place] [address] [facility], [place] [address] [facility] [address] [facility] [address] 05/14/2025 10:00 AM EDT Nurse Only Ancillary Department, [place] [address] [facility] [address] [place], Nurse [facility] Wellness [address] [facility] [address] Scheduled Procedures Name Priority Associated Diagnoses Date/Ti [...] Additional history exists CKD HGB USE SMARTSET 52323 01/28/202501/28, 01/29/2024, 12/27/2023, Additional history exists CKD PHOS USE SMARTSET 55627 01/28/2025 040 05/2024, 02/01/2023, 07/29/2022, Additional history [...] D LEVEL ONCE IN A LIFETIME-USE SMARTSET# [id number] Completed 07/03/2024, 08/28/2008, 04/07/2008, Additional history exists [...] PM 01/11/2005 3:56 PM Care Teams Automatic Brine Mixer Operator Relationship Specialty Start Date End Date Pete Ambriz MD [address] [place] [address] PCP - General Internal Medicine 05/08/24 documented as of this encounter
--- OUTSIDE RECORDS SUMMARY | 2024-10-24 23:41 | External Medical Summary | Summary of Care ---
Author Name Unknown Organization [facility] Address [address] [place] [address] Phone [phone] Care Team Providers Care Gardening Manager Name Role Phone Pete Ambriz MD Primary Care Provider [phone] Reason for Visit * Reason Onset Date Comments Advice 07/19/2024 Not Feeling Bett er Med Request 07/19/2024 Encounter Details Date Type Department Care Team (Late st Contact Info) Description 07/19/2024 Telephone [facility] [address] [place] [address] Pete Ambriz MD [address] [place] [address] Advice (Not Feeling Better); Med Request Allergies Active Allergy Reactions Criticality Noted Date Comments Cephalexin Unknown 09/12/2002 Lisinopril 12/07/2018 Cough Oxycodone 12/04/2003 nausea, stomach pains Tetanus Toxoid 01/28/2009 Local reaction, fever documented as of this encounter (statuses as of 07/23/2024) Medications Medication Sig Dispensed Refills Start Date [...] on management encounter,Aortocoro nary bypass status,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),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 50 Capsule 1 4 Active Azithromycin 250 MG Oral Tablet (Zithromax Z-Kyle)Indications:B ronchitis, complicated Take two tablets by mouth on first day, then 1 tablet daily until gone 6 Tablet 4 Active Hospital, Clinic, or Other Facility Administered Medication Ordered Dose Route Frequency Start Date End Date Status potassium chloride ER tab 10 mEqIndications:Acute on chronic diastolic congestive heart failure (HCC) 10 mEq OR Daily(AM) 12/24/2019 Activ e documented as of this encounter (statuses as of 07/23/2024) Active Problems Problem Noted Date Diagnosed Date [...] left eye 12/28/2020 Atherosclerosis of [place] co ronary artery of [place] heart without angina pectoris 12/19/2019 Persistent atrial fibrillation 11/28/2019 HTN, goal below 130/80 04/26/2019 Type 2 diabetes mellitus with diabetic neuropath y 02/11/2019 Chronic diarrhea 05/14/2010 Type 2 diabetes mellitus wit h hemoglobin A1c goal of 7.0%-8.0% 01/08/2010 Overview: ICD-10 update of inactive term DYSLIPIDEMIA, GOAL LDL BELOW 70 10/12/2009 Overview: Per Lipid Taxonomy. 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 Pulmonary hypertension DISH (diffuse idiopathic skeletal hyperostosis) documented as of this encounter (statuses as of 07/23/2024) Resolved Problems Problem Noted Date Diagnosed Date [...] Nummular eczema 09/06/2013 07/26/2021 [employer] Other*[id number] 02/03/2012 11/29/2016 Overview: Study Titile: [employer] Markers for Patients with Cardiovascular Disease Project # [id number] PI: Merary Rivera MD Please call [phone] with study related questions Irritable bowel syndrome 05/14/201001/2021 Type 2 diabetes mellitus wit h hemoglobin A1c goal of less than 7.0% 08/06/2009 01/08/2010 Overview: Modified per Diabetes protocol #14. ICD-10 update of inactive term ADVANCE DIRECTIVE INFORMATION 09/27/2007 07/26/2021 Overview: Yes-copy on file Carpal tunnel syndrome 04/14/200404/01 Atherosclerosis of [place] co ronary artery of [place] heart without angina pectoris 04/14/2004 Overview: Duplicate. [...] as of this encounter (statuses as of 07/23/2024) Immunizations Name Administration Dates Next Due COVID-19 mRNA, LNP-s, No Pre serve, 2-Dose Series (Pfizer) 06/22/2021,05/08/2021 Diptheria/Tetanus (Adult) 06/10/1997 Pneumococcal Conjugate Vacc, 13 Valent (Prevnar) 08/12/2016 Pneumococcal Polysaccharide PPV23 (Pneumovax) 05/08/2018,07/20/2005 Seasonal Influenza, Quadriva lent Hd (Fluzone Hd) 08/30/2023,09/23/2022 Seasonal Influenza, Trivalen t, (IIV3), with Preserv, (Fluzone) 08/04/2006,07/29/2005,08/16/2004 Seasonal Influenza, Trivalen t, Adjuvanted, 65+ YRS, [...] encounter Miscellaneous Notes * Telephone Encounter - Kelley Nixon LPN - 07/23/2024 9:10 AM EDT Patient has an appointment today that was scheduled with Dr. Ambriz but due to Dr. Ambriz leaving and being out for the day was put in with Dr. Do who states she really should be seen by Dr. Ambriz and tung try and call her to reschedule or if her symptoms are acute she should be seen in the ED. I called and spoke with patients who states she was already picked up by the count includes the [facility] van. * Telephone Encounter - Lorneza Fonseca LPN - 07/22/2024 1:02 PM EDT Spoke with pt and made aware of message below. Tried to transfer to scheduling, but they didn't answer. Nurse spoke with schedule out front to schedule and call pt. * Telephone Encounter - Pete Ambriz MD - 07/22/2024 8:04 AM EDT Pt has known underlying heart condition and pulmonary HTN too With this condition, if pt gets cough, bronchitis , this gives more stress on heart and can increase this BNP number If her cough is not getting better , please see me any time soon * Telephone Encounter - Lorenza Fonseca LPN - 07/20/2024 1:48 PM EDT Spoke with pt and her and made aware of this message below. pt states she has increased fatigue which has with recora therapy. Please advise Pt needs to have a follow up or acute appointment * Telephone Encounter - Angelina Malone OSA - 07/19/2024 3:57 PM EDT 1. When were you seen for this problem? 07/03/2024 2. What provider did you see for this problem? 3. What medications are you presently taking? Dr. Dayton Do 4. What is it that is no better? Please refer to Call Details. Pharmacy updated and verified. Below is the letter that was sent to patient on 07/14/2024. They have not received a call for someone to give them these results verbally. - I tried to make an appointment but the first available was not until Jul 29, 2024 ... Dear Tootie Almanza, I have reviewed your labs. BNP, NT-PRO Result Value Ref Range BNP, NT-Pro 1,715 (H) <300 pg/mL The BNP blood test is abnormally high. It has been in past as well. This puts into question - is the cough related to heart failure. Chest xray did not show heart failure but won't always . Lets see how you do with the added medications. If no better after 1-2 weeks, I suggest you see Dr Ambriz as youmay need a change in some of your other medications. Please contact me by [facility] or phone if you have any questions. Thank you for choosing [facility] for your health care. Sincerely, Dayton Do MD documented in this encounter Plan of Treatment Upcoming Encounters Date Type Department Care Team (Late st Contact Info) Description 07/23/2024 11:00 AM EDT Office Visit [facility] [address] [facility] [address] Dayton Do MD [address] [place] [address] 08/13/2024 11:00 AM EDT Anticoagulation Pharmacy, [place] [address] [place] [facility] [place] [address] [place], [facility] [address] [place] [facility] [address] 09/02/2024 10:00 AM EST Office Visit Cardiology, [facility] [address] [place] [address] Dayton Momin PA-C [address] [place] [address] 09/02/2024 10:00 AM EST Cardiac Studies Cardiology, [facility] [address] [place] [address] [facility] [address] 09/23/2024 9:00 AM EST Office Visit Family Practice, [place] [address] [address] [facility], [place] [address] Pete Ambriz MD [address] [place] [facility] [place] [address] 10/01/2024 10:00 AM EST Office Visit Pharmacy, [place] [address] [place] [facility] [place] [address] [place] [facility] [address] [place] [facility] [place] [address] 10/01/2024 10:30 AM EST Anticoagulation Pharmacy, [place] [address] [place] [facility] [address] [place], [facility] [address] [facility] [address] 05/14/2025 10:00 AM EDT Nurse Only Ancillary Department, [place] [facility] [address] [place] [phone] [place], Nurse Annual Wellness [address] [place] [address] Scheduled Procedures Name Priority Associated Diagnoses Date/Ti me COLONOSCOPY FLEXIBLE PROXIMA L DIAGNOSTIC Recall History of colonic polyps Health Maintenance Due Date Last Done Comments Colonoscopy 02/07/2022 02/07/2019, 01/21, 03/18/2010 COVID-19 Vaccine ( season) 2024 06/22/2021, 05/08/2021 Influenza Vaccine (FLU shot) (#1) 2024 08/30/2023, 09/23/2022, 10/01/2019, Additional history exists HbA1c 11/24/2024 05/24/2024, 04/0 05/2024, 07/25/2023, Additional history exists GFR 12/31/2024 07/03/2024, 08/0 11/2023, 12/27/2023, Additional history exists B-12 01/28/2025 01/29/2024, 01/21, 07/29/2022, Additional history exists CKD HGB USE SMARTSET 13889 01/28/202501/28, 01/29/2024, 12/27/2023, Additional history exists CKD PHOS USE SMARTSET 27950 01/28/2025 04/0 05/2024, 02/01/2023, 07/29/2022, Additional history [...] D LEVEL ONCE IN A LIFETIME-USE SMARTSET# 56379 Completed 07/03/2024, 08/28/2008, 04/07/2008, Additional history exists HPV (Gardasil) Vaccine Aged [...] 2:56 PM 01/11/2005 3:56 PM Care Teams Gardening Manager Relationship Specialty Start Date End Date Pete Ambriz MD [address] [place] [facility] [place] [address] PCP - General Internal Medicine 05/08/24 documented as of this encounter
--- OUTSIDE RECORDS SUMMARY | 2024-10-24 23:41 | External Medical Summary | Summary of Care ---
Author Name Unknown Organization [facility] Address [address] [facility] [place] [address] Phone [phone] Care Team Providers Care Concrete Panel Installer Name Role Phone Pete Ambriz MD Primary Care Provider [phone] Reason for Visit * Reason Comments Cardiac Rehab Encounter Details Date Type Department Care Team (Late st Contact Info) Description 07/26/2024 8:00 AM EDT Telemedicine Cardiac Rehab [facility], Virtual [address] [place] [address] [place] [address] Advanced, Virtual Cardiac Rehab [address] [place] [address] [place] [address] Aortocoronary bypass status* Allergies Active Allergy Reactions [...] on management encounter,Aortocoro nary bypass status,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),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's Intensive Cardiac Rehab Program in partnership with [employer] is a specialized company that specializes in providing virtual cardiac rehab services. Session #41 completed. Please refer to scan document for session details. Session type: Exercise Individual Session duration: 35 minutes documented in this encounter Plan of Treatment Upcoming Encounters Date Type Department Care Team (Late st Contact Info) Description 08/13/2024 11:00 AM EDT Antico[facility], [place] [address] [facility] [address] [place], [facility] [address] [facility] [address] 08/26/2024 10:20 AM EST Office Visit Family Practice, [place] [address] [facility] [address] Pete Ambriz MD [address] [facility] [address] 09/02/2024 10:00 AM EST Office Visit Cardiology, [facility] [address] [facility] [place] [address] [place] Momin PA-C 132 [facility] [place] [address] 09/02/2024 10:00 AM EST Cardiac Studies Cardiology, [facility] [address] [facility] [place] [address] [facility] 132 [facility] [place] [address] 10/01/2024 10:00 AM EST Office Visit Pharmacy, [place] [address] [facility] [address] [facility] [address] [facility], [place] [address] 10/01/2024 10:30 AM EST Anticoagulation Pharmacy, [place] [address] [facility], [place] [address] [facility] [address] [facility] [address] 05/14/2025 10:00 AM EDT Nurse Only Ancillary Department, [place] [address] [facility] [address] [place], [facility] [address] [facility] [address] Scheduled Procedures Name Priority Associated Diagnoses Date/Ti [...] Additional history exists CKD HGB USE SMARTSET 98580 01/28/202501/28, 01/29/2024, 12/27/2023, Additional history exists CKD PHOS USE SMARTSET 26858 01/28/2025 040 05/2024, 02/01/2023, 07/29/2022, Additional history [...] D LEVEL ONCE IN A LIFETIME-USE SMARTSET# [id number] Completed 07/03/2024, 08/28/2008, 04/07/2008, Additional history exists [...] 2:56 PM 01/11/2005 3:56 PM Care Teams Concrete Panel Installer Relationship Specialty Start Date End Date Pete Ambriz MD [address] [place] [address] PCP - General Internal Medicine 05/08/24 documented as of this encounter
--- OUTSIDE RECORDS SUMMARY | 2024-10-24 23:41 | External Medical Summary | Summary of Care ---
Author Name Unknown Organization [facility] Address [address] [facility] [place] [address] Phone [phone] Care Team Providers Care Animal Bounty Hunter Name Role Phone Pete Ambriz MD Primary Care Provider [phone] Reason for Visit * Reason Comments Cardiac Rehab Encounter Details Date Type Department Care Team (Late st Contact Info) Description 07/17/2024 9:00 AM EDT Telemedicine Cardiac Rehab [facility], Virtual [address] [place] [address] [place] [address] Advanced, Virtual Cardiac Rehab [address] [place] [address] [place] [address] Aortocoronary bypass status* Allergies Active Allergy Reactions [...] on management encounter,Aortocoro nary bypass status,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),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 TAKE 1/2 TO 1 TABLET BY MOUTH ONCE DAILY DIRECTED BY [facility] 90 Tablet 3 4 Active metFORMIN HCl ER 500 MG Oral Tablet Extended Release 24 Hour (Glucophage XR)Indications:Type 2 diabetes mellitus with hemoglobin A1c goal of 7.0%-8.0% ([facility]) TAKE 2 TABLETS BY MOUTH DAILY WITH MEALS Patient takes one once per day 4 Active Repaglinide 1 MG Oral Tablet (Prandin)Indication s:Type 2 diabetes mellitus with hemoglobin A1c goal of 7.0%-8.0% ([facility]) Take 1 Tablet by mouth [...] macular edema, left eye 12/28/2020 Atherosclerosis of [place] co ronary artery of [place] heart without angina pectoris 12/19/2019 Persistent atrial [...] Nummular eczema 09/06/2013 07/26/2021 [employer] Other*[id number] 02/03/2012 11/29/2016 Overview: Study Titile: [employer] Markers for Patients with Cardiovascular Disease Project # [id number] PI: Merary Rivera MD Please call [phone] with study related questions Irritable bowel syndrome 05/14/201001/2021 Type 2 diabetes mellitus wit h hemoglobin A1c goal of less than 7.0% 08/06/2009 01/08/2010 Overview: Modified per Diabetes protocol #14. ICD-10 update of inactive term ADVANCE DIRECTIVE INFORMATION 09/27/2007 07/26/2021 Overview: Yes-copy on file Carpal tunnel syndrome 04/14/200404/01 Atherosclerosis of [place] co ronary artery of [place] heart without angina pectoris 04/14/2004 Overview: Duplicate. [...] Hali De La Torre EPC - 07/25/2024 9:28 AM EDT Session Encounter: Patient is participating in [facility]'s Intensive Cardiac Rehab Program in partnership with [employer] is a specialized [employer] that specializes in providing virtual cardiac rehab services. Session #37 completed. Please refer to scan document for session details. Session type: Exercise Individual Session duration: 35 minutes documented in this encounter Plan of Treatment Upcoming Encounters Date Type Department Care Team (Late st Contact Info) Description 08/13/2024 11:00 AM EDT [facility]ticoagulation Pharmacy, [place] [address] [facility] [address] [place], [facility] [address] [facility] [address] 08/26/2024 10:20 AM EST Office Visit Family [facility], [place] [address] [facility] [address] Pete Ambriz MD [address] [facility] [address] 09/02/2024 10:00 AM EST Office Visit Cardiology, [facility] 132 [facility] [place] [address] [place] Momin PA-C [facility] [place] [address] 09/02/2024 10:00 AM EST Cardiac Studies Cardiology, [facility] 132 [facility] [place] [address] [facility] 132 [facility] [place] [address] 10/01/2024 10:00 AM EST Office Visit Pharmacy, [place] [address] [facility], [place] [address] [facility] [address] [facility], [place] [address] 10/01/2024 10:30 AM EST Anticoagulation Pharmacy, [place] [address] [facility] [address] [facility] [address] [facility], [place] [address] 05/14/2025 10:00 AM EDT Nurse Only Ancillary Department, [place] [address] [facility], [place] [address] [place], Nurse [facility] [address] [facility] [address] Scheduled Procedures Name Priority Associated Diagnoses Date/Ti [...] Additional history exists CKD HGB USE SMARTSET 74291 01/28/202501/28, 01/29/2024, 12/27/2023, Additional history exists CKD PHOS USE SMARTSET 66463 01/28/20250 05/2024, 02/01/2023, 07/29/2022, Additional history exists [...] D LEVEL ONCE IN A LIFETIME-USE SMARTSET# [id number] Completed 07/03/2024, 08/28/2008, 04/07/2008, Additional history exists [...] 2:56 PM 01/11/2005 3:56 PM Care Teams Animal Bounty Hunter Relationship Specialty Start Date End Date Pete Ambriz MD [address] [place] [facility] [place] [address] PCP - General Internal Medicine 05/08/24 documented as of this encounter
--- OUTSIDE RECORDS SUMMARY | 2024-10-24 23:41 | External Medical Summary | Summary of Care ---
Author Name Unknown Organization [facility] Address [address] [place] [address] Phone [phone] Care Team Providers Care Hedge Fund Principal Name Role Phone Pete Ambriz MD Primary Care Provider [phone] Reason for Visit * Reason Onset Date Comments Acute Patient is here today due to a cough that has been ongoing for several weeks. Patient states she is experiencing SOB, and a heaviness in her chest. She states she feels as there is "something" in her chest. Patient states an incline in going up steps makes the heaviness more intense. Medication Administration 07/23/2024 Flu an d/or Pneumo Inj Encounter Details Date Type Department Care Team (Late st Contact Info) Description 07/23/2024 11:00 AM EDT Office Visit [facility] [address] [place] [address] [place] Do MD [address] [place] [address] Need for prophylactic vaccination and inoculation against influenza*; Non-toxic multinodular goiter Allergies Active Allergy Reactions Criticality [...] ion management encounter,Aortocor onary bypass status,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),half-way current use of [...] hemoglobin A1c goal of 7.0%-8.0% ([facility]) Take 1 Tablet by mouth in the [...] Active Benzonatate 100 MG Oral Capsule (Tessalon Perlaustin)Indications :Bronchitis, complicated Take 1 Capsule by mouth 3 times a day as needed for Cough. Do not cut, crush, or chew. 50 Capsule 1 4 Active Azithromycin 250 MG Oral Tablet (Zithromax Z-Kyle)Indications: Bronchitis, complicated Take two tablets by mouth on first day, then 1 tablet daily until gone 6 Tablet 4 024 Discontin ued(Medic ation List Clean Up) Hospital, Clinic, or Other [...] macular edema, left eye 12/28/2020 Atherosclerosis of [place] co ronary artery of lime heart without angina pectoris 12/19/2019 Persistent atrial fibrillation 11/28/2019 HTN, goal below 130/80 04/26/2019 Type 2 diabetes mellitus with diabetic neuropath y 02/11/2019 Chronic diarrhea 05/14/2010 Type 2 diabetes mellitus wit h hemoglobin A1c goal of 7.0%-8.0% 01/08/2010 Overview: ICD-10 update of inactive term DYSLIPIDEMIA, GOAL LDL BELOW 70 10/12/2009 Overview: Per Lipid Taxonomy. 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 ICD-10 update of inactive term ADVANCE DIRECTIVE INFORMATION 09/27/2007 07/26/2021 Overview: Yes-copy on file Carpal tunnel syndrome 04/14/200404/01 Atherosclerosis of [place] co ronary artery of lime heart without angina pectoris 04/14/2004 Overview: Duplicate. [...] Sign Reading Time Taken Comments Blood Pressure 112/54 07/23/2024 10:28 AM EDT Pulse 76 07/23/2024 10:28 AM EDT Temperature 35.8 C (96.4 F) 07/23/2024 10:28 AM E DT Respiratory Rate 16 07/23/2024 10:28 AM EDT Oxygen Saturation 98% 07/23/2024 10:28 AM EDT Inhaled Oxygen Concentration - - Weight 72.8 kg (160 lb 6.4 oz) 07/23/2024 10:28 AM EDT Height 152.4 cm (5') 07/23/2024 10:28 AM EDT Body Mass Index 31.33 07/23/2024 10:28 AM EDT documented in this encounter Progress Notes * Kelley Nixon LPN - 07/23/2024 11:38 AM EDT PRE - ADMINISTRATION DOCUMENTATION Are you experiencing any cold symptoms or fever? No Have you had Guillain-[place] Syndrome (an illness that causes paralysis) within the last 6 weeks? No Have you had the flu shot in the past? YES Have you ever had a reaction to the flu shot? No Kelley Nixon LPN, 07/23/2024 11:38 AM Immunization Administration Documentation Time Out Procedure Performed: Yes Patient Identified (Ask Name/Date of ): Yes Does the patient have a fever greater than 101 degrees today? No Patient allergic to latex? No VFC Stock: No Immunization(s) verified: Yes, Immunization Name: Flu, VIS Sheet(s) given: Yes Verified Side and Site: Yes Verified Shot(s) with Parent(s)/Patient: Yes * [place] Do MD - 07/23/2024 11:05 AM EDT Subjective: Tootie Almanza is a 84 year old female. Chief Complaint Patient presents with Acute Patient is here today due to a cough that has been ongoing for several weeks. Patient states she is experiencing SOB, and a heaviness in her chest. She states she feels as thereis "something" in her chest. Patient states an incline in going up steps makes the heaviness more intense. HPI: 84-year-old whom I saw about a month ago with what I thought was a infectious bronchitis causing cough. She did a course of antibiotic in his seems to me that that is some improved. There was aquestion though that some of her symptoms may be chronic and possibly due to underlying heart failure. Since that appointment, she still reports fatigue and some shortness of breath with activity. She is doing virtual cardiac rehab and although she notes that sometimes it is difficult, she is able to push through it. Does not seem that that rehab is causing chest pain. She has not developed significant lower leg edema. She remains on her Lasix 20 mg, 2 tablets 3 days a week and 1 tablet 4 days a week. She actually was scheduled today to see her regular provider (Dr. Ambriz), but was shifted onto my schedule because Dr. Ambriz was not going to be available. Of note is that she currently has her 3rd pacemaker in reportedly it is almost at the end of its life and she is anticipating a new pacemaker in the relatively near future. 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 therapy Vitamin D deficiency DYSLIPIDEMIA, GOAL LDL BELOW 70 Type 2 diabetes mellitus with hemoglobin A1c goal of 7.0%-8.0% (HCC) Chronic diarrhea Cardiac pacemaker in situ Pulmonary hypertension (HCC) DISH (diffuse idiopathic skeletal hyperostosis) Type 2 diabetes mellitus with diabetic neuropathy (HCC) HTN, goal below 130/80 Persistent atrial fibrillation (HCC) Atherosclerosis of lime coronary artery of lime heart without angina pectoris Age-related osteoporosis without current pathological fracture Type 2 diabetes mellitus with mild nonproliferative diabetic retinopathy without macular edema, left eye ([facility]) Chronic kidney disease, stage 3a (HCC) 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 100 Tablet 3 Metoprolol Tartrate 100 MG Oral Tablet (Lopressor) TAKE 1 TABLET BY MOUTH TWICE DAILY 180 Tablet 3 Acetaminophen ER 650 MG Oral Tablet Extended Release (Tylenol 8 Hour Arthritis Pain) Take 1 Tablet by mouth every 8 hours as needed. Joint Health Oral Capsule Take by mouth. Fluticasone Propionate 50 MCG/ACT Nasal Suspension (Flonase) Administer 2 Sprays into each nostril in the morning. 16 g 5 Montelukast Sodium 10 MG Oral Tablet (Singulair) Take 1 Tablet by mouth in the morning. 90 Tablet 3 Warfarin Sodium 2 MG Oral Tablet (Coumadin) TAKE 1/2 TO 1 TABLET BY [facility]TH ONCE DAILY [facility] Tablet 3 metFORMIN HCl ER [...] DAILY IN THE MORNING 60 Capsule 5 Albuterol Sulfate HFA 108 (90 Base) MCG/ACT Inhalation Aerosol Solution Inhale 2 Puffs by mouth every 6 hours as needed for Wheezing or Other (cough). 18 g 1 Benzonatate 100 MG Oral Capsule (Tessalon Perles) Take 1 Capsule by mouth 3 times a day as needed for Cough. Do not cut, crush, or chew. 50 Capsule 1 Nitroglycerin 0.4 MG Sublingual Tablet Sublingual (Nitrostat) Place 1 Tablet under the tongue every5 minutes as needed (up to three tablets). Up to 3 doses in 15 minutes. (Patient not taking: Reported on 06/26/2024) 12 Tablet 3 Current Facility-Administered Medications Medication Dose Route Frequency Provider Last Rate Last Admin potassium chloride ER tab 10 mEq 10 mEq Oral Daily(AM) Cihnmay Scherer DO Review of patient's allergies indicates: Allergen Reactions Cephalexin Unknown Lisinopril Cough Oxycodone nausea, stomach pains Tetanus Toxoid Local reaction, fever Objective: BP 112/54 | Pulse 76 | Temp 35.8 C (96.4 F) (Tympanic) | Resp 16 | Ht 1.524 m (5') | Wt 72.8 kg(160 lb 6.4 oz) | SpO2 98% | BMI 31.33 kg/m | BSA 1.76 m Physical Exam: Note that her weight is 2 lb higher than when I saw her 4 weeks ago. CONST: alert, pleasant, no acute distress HEAD: normocephalic, atraumatic Eyes - PERRLA, EOM'I OROPHARYNX: clear, no swelling or erythema, moist CV: regular rate and rhythm, no murmur CHEST: clear to auscultation bilaterally, no rales or wheezing. There was no basilar crackles ABD: soft, non tender, non distended, no masses or hepatosplenomegaly EXT: Trace bilateral ankle edema at most, no joint swelling or deformities, NEURO: AAOx3, no gross focal deficits, cerebellar signs normal, affect appropriate MENTAL STATUS: no evidence of thought disorder, no delusional thought, no evidence of paranoia, thought is non-tangential. SKIN: no rash or significant lesions ASSESSMENT/PLAN: For exercise tolerance-I agree with the home cardiac rehab program. I questions whether underlying heart failure maybe contributing but I am not convinced that that is the case in her weight basically has remained stable. So no change in diuretic therapy. I would like to have her come back and see her primary physician Dr. Ambriz in the next 2 months. Pacemaker-by patient account, it is likely that she is going to need replacement in the relatively near future. Type 2 diabetes-last hemoglobin A1c 2 months ago was 9. I told the patient would like to have a little bit lower and preferably under 8. I did not ask her to change her regimen which includes glargine insulin plus metformin plus Jardiance plus repaglinide. Routine health maintenance-she agrees to do flu shot today. [place] Do MD documented in this encounter Nursing Notes * Hussain Kelley FELISA Zhong - 07/23/2024 10:34 AM EDT The patient has been properly identified by confirmation of name and date of . Chief Complaint Patient presents with Acute Patient is here today due to a cough that has been ongoing for several weeks. Patient states she is experiencing SOB, and a heaviness in her chest. She states she feels as thereis "something" in her chest. Patient states an incline in going up steps makes the heaviness more intense. documented in this encounter Plan of Treatment Upcoming Encounters Date Type Department Care Team (Late st Contact Info) Description 08/13/2024 11:00 AM EDT [facility], [place] [address] [facility] [address] [facility] [address] [facility] [address] 08/26/2024 10:20 AM EST Office Visit Family Practice, [place] [address] [facility] [address] Pete Ambriz MD [address] [facility] [address] 09/02/2024 10:00 AM EST Office Visit [facility], [facility] [address] [place] Momin [facility] 132 [facility], [place] [address] 09/02/2024 10:00 AM EST Cardiac Studies Cardiology, [facility] [address] [facility] [address] [facility] [place] [address] 10/01/2024 10:00 AM EST Office Visit Pharmacy, [place] [address] [address] [facility] [address] [facility] [address] [facility] [address] 10/01/2024 10:30 AM EST Anticoagulation Pharmacy, [place] [address] [facility] [address] [facility] [address] [place] [address] 05/14/2025 10:00 AM EDT Nurse Only Ancillary Department, [place] [address] [facility] [address] [place], Nurse [facility] [address] [facility] [place] [address] Scheduled Procedures Name Priority Associated Diagnoses Date/Ti [...] Additional history exists CKD HGB USE SMARTSET 07295 01/28/202501/28, 01/29/2024, 12/27/2023, Additional history exists CKD PHOS USE SMARTSET 40320 01/28/2025 04/0 05/2024, 02/01/2023, 07/29/2022, Additional history [...] D LEVEL ONCE IN A LIFETIME-USE SMARTSET# [id number] Completed 07/03/2024, 08/28/2008, 04/07/2008, Additional history exists [...] as of this encounter Visit Diagnoses Diagnosis Need for prophylactic vaccination and inoculation against influenza- Primary Non-toxic multinodular goiter Nontoxic multinodular goiter documented in this encounter Advance Directives * No Code Status (Latest Code Status on File) Date Activated Date Inactivated Comments 01/11/2005 2:56 PM 01/11/2005 3:56 PM Care Teams Hedge Fund Principal Relationship Specialty Start Date End Date Pete Ambriz MD [address] [place] [address] PCP - General Internal Medicine 05/08/24 documented as of this encounter
--- OUTSIDE RECORDS SUMMARY | 2024-10-24 23:41 | External Medical Summary | Summary of Care ---
Author Name Unknown Organization [facility] Address [address] [facility] [place] [address] Phone [phone] Care Team Providers Care Supervisor Color Making Name Role Phone Pete Ambriz MD Primary Care Provider [phone] Reason for Visit * Reason Comments Cardiac Rehab Encounter Details Date Type Department Care Team (Late st Contact Info) Description 07/15/2024 10:00 AM EDT Telemedicine Cardiac Rehab [facility], Virtual [address] [place] [address] [place] [address] Advanced, Virtual Cardiac Rehab [address] [place] [address] [place] [address] Aortocoronary bypass status* Allergies Active Allergy Reactions [...] on management encounter,Aortocoro nary bypass status,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),[facility] current use of anticoagulant therapy TAKE 1/2 TO 1 TABLET BY MOUTH ONCE DAILY DIRECTED BY COUMADIN CLINIC 90 Tablet 3 4 Active metFORMIN HCl ER 500 MG Oral Tablet Extended Release 24 Hour (Glucophage XR)Indications:Type 2 diabetes mellitus with hemoglobin A1c goal of 7.0%-8.0% ([facility]) TAKE 2 TABLETS BY MOUTH DAILY WITH MEALS Patient takes one once per day 4 Active Repaglinide 1 MG Oral Tablet (Prandin)Indication s:Type 2 diabetes mellitus with hemoglobin A1c goal of 7.0%-8.0% ([facility]) Take 1 Tablet by mouth [...] macular edema, left eye 12/28/2020 Atherosclerosis of [place] co ronary artery of [place] heart without angina pectoris 12/19/2019 Persistent atrial fibrillation 11/28/2019 HTN, goal below 130/80 04/26/2019 Type 2 diabetes mellitus with diabetic neuropath y 02/11/2019 Chronic diarrhea 05/14/2010 Type 2 diabetes mellitus wit h hemoglobin A1c goal of 7.0%-8.0% 01/08/2010 Overview: ICD-10 update of inactive term DYSLIPIDEMIA, GOAL LDL BELOW 70 10/12/2009 Overview: Per Lipid Taxonomy. 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 ICD-10 update of inactive term ADVANCE DIRECTIVE INFORMATION 09/27/2007 07/26/2021 Overview: Yes-copy on file Carpal tunnel syndrome 04/14/200404/01 Atherosclerosis of [place] co ronary artery of [place] heart without angina pectoris 04/14/2004 Overview: Duplicate. [...] Hali De La Torre EPC - 07/25/2024 9:31 AM EDT Session Encounter: [facility] in partnership with [employer] is a specialized [employer] that specializes in providing virtual cardiac rehab services. Session #36 completed. Please refer to scan document for session details. Session type: Education Group Session duration: 60 minutes * Hali De La Torre EPC - 07/25/2024 9:31 AM EDT Session Encounter: [facility] in partnership with [employer] is a specialized [employer] that specializes in providing virtual cardiac rehab services. Session #35 completed. Please refer to scan document for session details. Session type: Education Group Session duration: 60 minutes documented in this encounter Plan of Treatment Upcoming Encounters Date Type Department Care Team (Late st Contact Info) Description 08/13/2024 11:00 AM EDT [facility]tico[facility], [place] [address] [address] [facility] [address] [facility] [address] [facility] [address] 08/26/2024 10:20 AM EST Office Visit Family [facility], [place] [address] [facility] [address] Pete Ambriz MD [address] [facility] [address] 09/02/2024 10:00 AM EST Office Visit Cardiology, [facility] [address] [place] [address] [place] Momin PACrystalC [address] [place] [address] 09/02/2024 10:00 AM EST Cardiac Studies Cardiology, [facility] [address] [facility] [place] [address] [place], [facility] [address] [place] [address] 10/01/2024 10:00 AM EST Office Visit Pharmacy, [place] [address] [address] [facility], [place] [address] [facility] [address] [facility], [place] [address] 10/01/2024 10:30 AM EST Anticoagulation Pharmacy, [place] [address] [facility] [address] [facility] [address] [facility], [place] [address] 05/14/2025 10:00 AM EDT Nurse Only Ancillary Department, [place] [address] [address] [facility], [place] [address] [place], Nurse [facility] [address] [facility] [address] Scheduled Procedures Name Priority Associated Diagnoses Date/Ti [...] Additional history exists CKD HGB USE SMARTSET 50672 01/28/202501/28, 01/29/2024, 12/27/2023, Additional history exists CKD PHOS USE SMARTSET 66047 01/28/2025 04/0 05/2024, 02/01/2023, 07/29/2022, Additional history [...] D LEVEL ONCE IN A LIFETIME-USE SMARTSET# [id number] Completed 07/03/2024, 08/28/2008, 04/07/2008, Additional history exists [...] PM 01/11/2005 3:56 PM Care Teams Supervisor Color Making Relationship Specialty Start Date End Date Pete Ambriz MD [address] [place] [address] PCP - General Internal Medicine 05/08/24 documented as of this encounter
--- OUTSIDE RECORDS SUMMARY | 2024-10-24 23:41 | External Medical Summary | Summary of Care ---
Author Name Unknown Organization [facility] Address [address] [facility] [place] [address] Phone [phone] Care Team Providers Care Pipe Caulker Name Role Phone Pete Ambriz MD Primary Care Provider [phone] Reason for Visit * Reason Comments Cardiac Rehab Encounter Details Date Type Department Care Team (Late st Contact Info) Description 07/19/2024 9:00 AM EDT Telemedicine Cardiac Rehab [facility], Virtual [address] [place] [address] [place] Ya[place] [address] Advanced, Virtual Cardiac Rehab [address] [place] [address] [place] [address] Aortocoronary bypass status* Allergies Active Allergy Reactions [...] hemoglobin A1c goal of 7.0%-8.0% ([facility]) TAKE 2 TABLETS BY MOUTH DAILY WITH MEALS Patient takes one once per day 4 Active Repaglinide 1 MG Oral Tablet (Prandin)Indication s:Type 2 diabetes mellitus with hemoglobin A1c goal of 7.0%-8.0% ([facility]) Take 1 Tablet by mouth [...] macular edema, left eye 12/28/2020 Atherosclerosis of [place] co ronary artery of [place] heart without angina pectoris 12/19/2019 Persistent atrial fibrillation 11/28/2019 HTN, goal below 130/80 04/26/2019 Type 2 diabetes mellitus with diabetic neuropath y 02/11/2019 Chronic diarrhea 05/14/2010 Type 2 diabetes mellitus wit h hemoglobin A1c goal of 7.0%-8.0% 01/08/2010 Overview: ICD-10 update of inactive term DYSLIPIDEMIA, GOAL LDL BELOW 70 10/12/2009 Overview: Per Lipid Taxonomy. Vitamin D deficiency 12/12/2007 [facility] current use of anticoagulant therapy 0 05/27/2005 [...] Nummular eczema 09/06/2013 07/26/2021 [employer] Other*[id number] 02/03/2012 11/29/2016 Overview: Study Titile: [employer] Markers for Patients with Cardiovascular Disease Project # [id number] PI: Merary Rivera MD Please call [phone] with study related questions Irritable bowel syndrome 05/14/201001/2021 Type 2 diabetes mellitus wit h hemoglobin A1c goal of less than 7.0% 08/06/2009 01/08/2010 Overview: Modified per Diabetes protocol #14. ICD-10 update of inactive term ADVANCE DIRECTIVE INFORMATION 09/27/2007 07/26/2021 Overview: Yes-copy on file Carpal tunnel syndrome 04/14/200404/01 Atherosclerosis of [place] co ronary artery of [place] heart without angina pectoris 04/14/2004 Overview: Duplicate. [...] Hali De La Torre EPC - 07/25/2024 9:23 AM EDT Session Encounter: Patient is participating in [facility]'s Intensive Cardiac Rehab Program in partnership with [employer] is a specialized [employer] that specializes in providing virtual cardiac rehab services. Session #39 completed. Please refer to scan document for session details. Session type: Exercise Individual Session duration: 35 minutes documented in this encounter Plan of Treatment Upcoming Encounters Date Type Department Care Team (Late st Contact Info) Description 08/13/2024 11:00 AM EDT [facility]ticoagulation [facility], [place] [address] [address] [facility] [address] [place], [facility] [address] [facility] [address] 08/26/2024 10:20 AM EST Office Visit Family [facility], [place] [address] [address] [facility] [address] Pete Ambriz MD [address] [facility] [address] 09/02/2024 10:00 AM EST Office Visit Cardiology, [facility] 132 [facility] [place] [address] [place] Momin PA-C [facility] [place] [address] 09/02/2024 10:00 AM EST Cardiac Studies Cardiology, [facility] 132 [facility] [place] [address] [facility] 132 [facility] [place] [address] 10/01/2024 10:00 AM EST Office Visit Pharmacy, [place] [address] [address] [facility], [place] [address] [facility] [address] [facility], [place] [address] 10/01/2024 10:30 AM EST Anticoagulation Pharmacy, [place] [address] [facility] [address] [facility] [address] [facility], [place] [address] 05/14/2025 10:00 AM EDT Nurse Only Ancillary Department, [place] [address] [address] [facility], [place] [address] [place], Nurse [facility] Well[facility] [address] [facility] [address] Scheduled Procedures Name Priority Associated Diagnoses Date/Ti [...] Additional history exists CKD HGB USE SMARTSET 13303 01/28/202501/28, 01/29/2024, 12/27/2023, Additional history exists CKD PHOS USE SMARTSET 78763 01/28/20250 05/2024, 02/01/2023, 07/29/2022, Additional history exists [...] D LEVEL ONCE IN A LIFETIME-USE SMARTSET# [id number] Completed 07/03/2024, 08/28/2008, 04/07/2008, Additional history exists [...] 2:56 PM 01/11/2005 3:56 PM Care Teams Pipe Caulker Relationship Specialty Start Date End Date Pete Ambriz MD [address] [place] [facility] [address] PCP - General Internal Medicine 05/08/24 documented as of this encounter
--- OUTSIDE RECORDS SUMMARY | 2024-10-24 23:41 | External Medical Summary | Summary of Care ---
Author Name Unknown Organization [facility] Address [address] [place] [address] Phone [phone] Care Team Providers Care Manager Educational Name Role Phone Pete Ambriz MD Primary Care Provider [phone] Reason for Visit * Reason Comments eRx-Medication Refill Encounter Details Date Type Department Care Team (Late st Contact Info) Description 07/30/2024 Refill [facility] [address] [place] [address] Zander Do MD [address] [place] [address] Bronchitis, complicated Allergies Active Allergy [...] DAYS OF THE WEEK 135 Tablet 3 09/06/20 23 Active Insulin Pen Needle 29G X [...] tion management encounter,Aortoco ronary bypass status,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),nursing home current use [...] CHEW 50 Capsule 1 07/31/20 24 Active Benzonatate 100 MG Oral Capsule (Jonathon De La Rosa)Indication s:Bronchitis, complicated Take 1 Capsule by mouth 3 times a day as needed for Cough. Do not cut, crush, or chew. 50 Capsule 1 07/03/20 24 024 Discontinued Hospital, Clinic, or Other [...] macular edema, left eye 12/28/2020 Atherosclerosis of [place] co ronary artery of [place] heart without angina pectoris 12/19/2019 Persistent atrial fibrillation 11/28/2019 HTN, goal below 130/80 04/26/2019 Type 2 diabetes mellitus with diabetic neuropath y 02/11/2019 Chronic diarrhea 05/14/2010 Type 2 diabetes mellitus wit h hemoglobin A1c goal of 7.0%-8.0% 01/08/2010 Overview: ICD-10 update of inactive term DYSLIPIDEMIA, GOAL LDL BELOW 70 10/12/2009 Overview: Per Lipid Taxonomy. 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 ICD-10 update of inactive term ADVANCE DIRECTIVE INFORMATION 09/27/2007 07/26/2021 Overview: Yes-copy on file Carpal tunnel syndrome 04/14/200404/01 Atherosclerosis of [place] co ronary artery of [place] heart without angina pectoris 04/14/2004 Overview: Duplicate. [...] encounter Miscellaneous Notes * Telephone Encounter - Zander Do MD - 07/31/2024 8:06 PM EDTSigned Prescriptions: Disp Refills Benzonatate 100 MG Oral Capsule (Tessalon *50 Cap*1 Sig: TAKE 1 CAPSULE BY MOUTH 3 TIMES DAILY NEEDED FOR COUGH. DO NOT CUT, CRUSH OR CHEW Authorizing Provider: ZANDER DO * Telephone Encounter - Laurie Lynn LPN - 07/31/2024 3:14 PM EDTPending Prescriptions: Disp Refills Benzonatate 100 MG Oral Capsule [Pharmacy *50 Cap*1 Sig: TAKE 1 CAPSULE BY MOUTH 3 TIMES DAILY NEEDED FOR COUGH. DO NOT CUT, CRUSH OR CHEW * Telephone Encounter - Maria Eugenia Jimenez - 07/30/2024 1:37 PM EDTPending Prescriptions: Disp Refills Benzonatate 100 MG Oral Capsule [Pharmacy *50 Cap*1 Sig: TAKE 1CAPSULE BY MOUTH 3 TIMES DAILY NEEDED FOR COUGH. DO NOT CUT, CRUSH OR CHEW documented in this encounter Plan of Treatment Upcoming Encounters Date Type Department Care Team (Late st Contact Info) Description 08/13/2024 11:00 AM EDT Anticoagulation Pharmacy, [place] [address] [facility] [address] [facility] [address] [facility] [address] 08/26/2024 10:20 AM EST Office Visit Family [facility], [place] [address] [address] [facility] [address] Pete Ambriz MD [address] [facility] [address] 09/02/2024 10:00 AM EST Office Visit Cardiology, [facility] 132 [facility] [place] [address] Zander Momin, PA-C 132 [facility] [place] [address] 09/02/2024 10:00 AM EST Cardiac Studies Cardiology, [facility] 132 [facility] [place] [address] [facility] 132 [facility] [place] [address] 10/01/2024 10:00 AM EST Office Visit Pharmacy, [place] [address] [address] [facility] [address] [facility] [address] [facility], [place] [address] 10/01/2024 10:30 AM EST Anticoagulation Pharmacy, [place] [address] [facility], [place] [address] [facility] [address] [facility] [address] 05/14/2025 10:00 AM EDT Nurse Only Ancillary Department, [place] [address] [facility] [address] [place], Nurse Annual Well[facility] [address] [facility] [address] Scheduled Procedures Name Priority Associated Diagnoses Date/Ti [...] Additional history exists CKD HGB USE SMARTSET 92220 01/28/202501/28, 01/29/2024, 12/27/2023, Additional history exists CKD PHOS USE SMARTSET 79138 01/28/2025 04/0 05/2024, 02/01/2023, 07/29/2022, Additional history [...] D LEVEL ONCE IN A LIFETIME-USE SMARTSET# [id number] Completed 07/03/2024, 08/28/2008, 04/07/2008, Additional history exists [...] PM 01/11/2005 3:56 PM Care Teams Manager Educational Relationship Specialty Start Date End Date Pete Ambriz MD [address] [place] [address] PCP - General Internal Medicine 05/08/24 documented as of this encounter
--- OUTSIDE RECORDS SUMMARY | 2024-10-24 23:41 | External Medical Summary | Summary of Care ---
Author Name Unknown Organization [facility] Address [address] [facility] [place] [address] Phone [phone] Care Team Providers Care Chocolate Packer Name Role Phone Pete Ambriz MD Primary Care Provider [phone] Reason for Visit * Reason Comments Cardiac Rehab Encounter Details Date Type Department Care Team (Late st Contact Info) Description 07/17/2024 10:00 AM EDT Telemedicine Cardiac Rehab [facility], Virtual [address] [place] [address] [place] [address] Advanced, Virtual Cardiac Rehab [address] [place] [address] [place] [address] Aortocoronary bypass status* Allergies Active Allergy Reactions [...] on management encounter,Aortocoro nary bypass status,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),intermediate current use of anticoagulant therapy TAKE 1/2 TO 1 TABLET BY MOUTH ONCE DAILY DIRECTED BY COUMADIN CLINIC 90 Tablet 3 4 Active metFORMIN HCl ER 500 MG Oral Tablet Extended Release 24 Hour (Glucophage XR)Indications:Type 2 diabetes mellitus with hemoglobin A1c goal of 7.0%-8.0% ([facility]) TAKE 2 TABLETS BY MOUTH DAILY WITH MEALS Patient takes one once per day 4 Active Repaglinide 1 MG Oral Tablet (Prandin)Indication s:Type 2 diabetes mellitus with hemoglobin A1c goal of 7.0%-8.0% ([facility]) Take 1 Tablet by mouth in [...] macular edema, left eye 12/28/2020 Atherosclerosis of [place] co ronary artery of [place] heart without angina pectoris 12/19/2019 Persistent atrial [...] Nummular eczema 09/06/2013 07/26/2021 [employer] Other*[id number] 02/03/2012 11/29/2016 Overview: Study Titile: [employer] Markers for Patients with Cardiovascular Disease Project # [id number] PI: Merary Rivera MD Please call [phone] with study related questions Irritable bowel syndrome 05/14/201001/2021 Type 2 diabetes mellitus wit h hemoglobin A1c goal of less than 7.0% 08/06/2009 01/08/2010 Overview: Modified per Diabetes protocol #14. ICD-10 update of inactive term ADVANCE DIRECTIVE INFORMATION 09/27/2007 07/26/2021 Overview: Yes-copy on file Carpal tunnel syndrome 04/14/200404/01 Atherosclerosis of [place] co ronary artery of [place] heart without angina pectoris 04/14/2004 Overview: Duplicate. [...] EDT Session Encounter: Patient is participating in [facility]'s Intensive Cardiac Rehab Program in partnership with [employer] is a specialized [employer] that specializes in providing virtual cardiac rehab services. Session #38 completed. Please refer to scan document for session details. Session type: Education Group Session duration: 60 minutes documented in this encounter Plan of Treatment Upcoming Encounters Date Type Department Care Team (Late st Contact Info) Description 08/13/2024 11:00 AM EDT [facility]ticoagulation Pharmacy, [place] [address] [facility] [address] [place], [facility] [address] [facility] [address] 08/26/2024 10:20 AM EST Office Visit Family [facility], [place] [address] [facility] [address] Pete Ambriz MD [address] [facility] [address] 09/02/2024 10:00 AM EST Office Visit Cardiology, [facility] 132 [facility] [place] [address] [place] Momin PA-C [facility] [place] [address] 09/02/2024 10:00 AM EST Cardiac Studies Cardiology, [facility] 132 [facility] [place] [address] [facility] 132 [facility] [place] [address] 10/01/2024 10:00 AM EST Office Visit Pharmacy, [place] [address] [address] [facility], [place] [address] [facility] [address] [facility], [place] [address] 10/01/2024 10:30 AM EST Anticoagulation Pharmacy, [place] [address] [facility] [address] [facility] [address] [facility], [place] [address] 05/14/2025 10:00 AM EDT Nurse Only Ancillary Department, [place] [address] [address] [facility], [place] [address] [place], Nurse Annual Wellness [address] [facility] [address] Scheduled Procedures Name Priority Associated Diagnoses Date/Ti [...] Additional history exists CKD HGB USE SMARTSET 06159 01/28/202501/28, 01/29/2024, 12/27/2023, Additional history exists CKD PHOS USE SMARTSET 34902 01/28/20250 05/2024, 02/01/2023, 07/29/2022, Additional history exists [...] D LEVEL ONCE IN A LIFETIME-USE SMARTSET# 68518 Completed 07/03/2024, 08/28/2008, 04/07/2008, Additional history exists [...] 2:56 PM 01/11/2005 3:56 PM Care Teams Chocolate Packer Relationship Specialty Start Date End Date Pete Ambriz MD [address] [place] [address] PCP - General Internal Medicine 05/08/24 documented as of this encounter
--- OUTSIDE RECORDS SUMMARY | 2024-10-24 23:41 | External Medical Summary | Summary of Care ---
Author Name Unknown Organization [facility] Address [address] [place] [address] Phone [phone] Care Team Providers Care End Polisher Name Role Phone Pete Ambriz MD Primary Care Provider [phone] Reason for Visit * Reason Onset Date Comments Advice 07/19/2024 Not Feeling Bett er Med Request 07/19/2024 Appointment 07/19/2024 Encounter Details Date Type Department Care Team (Late st Contact Info) Description 07/19/2024 Telephone [facility] [address] [place] [address] Pete Ambriz MD [address] [place] [address] Advice (Not Feeling Better); Med Request; ... Allergies Active Allergy Reactions Criticality Noted Date [...] A1c goal of 7.0%-8.0% ([facility]) TAKE 2 TABLETS BY MOUTH DAILY WITH MEALS 4 Active Repaglinide 1 MG Oral Tablet (Prandin)Indication s:Type 2 diabetes mellitus with hemoglobin A1c goal of 7.0%-8.0% ([facility]) Take 1 Tablet by mouth in the [...] macular edema, left eye 12/28/2020 Atherosclerosis of [place] ronary artery of [place] heart without angina pectoris 12/19/2019 Persistent atrial fibrillation 11/28/2019 HTN, goal below 130/80 04/26/2019 Type 2 diabetes mellitus with diabetic neuropath y 02/11/2019 Chronic diarrhea 05/14/2010 Type 2 diabetes mellitus wit h hemoglobin A1c goal of 7.0%-8.0% 01/08/2010 Overview: ICD-10 update of inactive term DYSLIPIDEMIA, GOAL LDL BELOW 70 10/12/2009 Overview: Per Lipid Taxonomy. 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 ICD-10 update of inactive term ADVANCE DIRECTIVE INFORMATION 09/27/2007 07/26/2021 Overview: Yes-copy on file Carpal tunnel syndrome 04/14/200404/01 Atherosclerosis of [place] ronary artery of [place] heart without angina pectoris 04/14/2004 Overview: Duplicate. [...] IM, 0.5 mL (Fluzone) 08/04/2006,07/29/2005,08/16/2004 Seasonal Influenza, Quadriva lent Hd (Fluzone Hd) [...] encounter Miscellaneous Notes * Telephone Encounter - Mary Solorzano OSA - 07/23/2024 10:20 AM EDT Patient attended the appointment that she had due to on going concerns. * Telephone Encounter - Kelley Nixon LPN [...] she was already picked up by the [facility]. * Telephone Encounter - Lorenza Fonseca LPN - 07/22/2024 1:02 PM EDT [...] provider did you see for this problem? Dr 3. What medications are you presently taking? [...] have any questions. Thank you for choosing [facility] [facility] for your health care. Sincerely, [place] Do MD documented in this encounter Plan of Treatment Upcoming Encounters Date Type Department Care Team (Late st Contact Info) Description 07/23/2024 11:00 AM EDT Office Visit [facility], [place] [address] [facility], [place] [phone] [place] Do [facility] [address] [facility] [address] Arrived 08/13/2024 11:00 AM EDT Anticoagulation Pharmacy, [place] [address] [place] [facility] [place] [address] [facility] [address] [facility], [place] [address] 09/02/2024 10:00 AM EST Office Visit Cardiology, [facility] [address] [facility] [address] [place] Momin PA-Taj [address] [place] [address] 09/02/2024 10:00 AM EST Cardiac Studies Cardiology, [facility] [address] [facility] [address] [facility] [address] [facility] [address] 09/23/2024 9:00 AM EST Office Visit [facility], [place] [address] [place] [facility] [place] [phone] Pete Ambriz MD [address] [facility] [address] 10/01/2024 10:00 AM EST Office Visit Pharmacy, [place] [address] [place] [facility] [place] [address] [facility] [address] [facility], [place] [address] 10/01/2024 10:30 AM EST Antico[facility] Pharmacy, [place] [address] [facility] [address] [facility] [address] [facility] [address] 05/14/2025 10:00 AM EDT Nurse Only Ancillary Department, [place] [address] [facility] [address] [place], Nurse [facility] [address] [facility] [address] Scheduled Procedures Name Priority Associated Diagnoses Date/Ti [...] Additional history exists CKD HGB USE SMARTSET 08320 01/28/202501/28, 01/29/2024, 12/27/2023, Additional history exists CKD PHOS USE SMARTSET 76099 01/28/2025 04/0 05/2024, 02/01/2023, 07/29/2022, Additional history [...] D LEVEL ONCE IN A LIFETIME-USE SMARTSET# [id number] Completed 07/03/2024, 08/28/2008, 04/07/2008, Additional history exists [...] 2:56 PM 01/11/2005 3:56 PM Care Teams End Polisher Relationship Specialty Start Date End Date Pete Ambriz MD [address] [place] [address] PCP - General Internal Medicine 05/08/24 documented as of this encounter
--- OUTSIDE RECORDS SUMMARY | 2024-10-24 23:42 | External Medical Summary | Summary of Care ---
Author Name Unknown Organization [facility] Address [address] [facility] [place] [address] Phone [phone] Care Team Providers Care Sheep And Wheat Farmer Name Role Phone Pete Ambriz MD Primary Care Provider [phone] Reason for Visit * Reason Comments Cardiac Rehab Encounter Details Date Type Department Care Team (Late st Contact Info) Description 07/02/2024 10:00 AM EDT Telemedicine [facility] [address] [place] [address] [place] [address] [facility], [facility] Card[facility] Re[facility] [address] [place] [address] [place] [address] Aortocoronary bypass status* Allergies Active Allergy Reactions Criticality Noted Date Comments Cephalexin Unknown 09/12/2002 Lisinopril 12/07/2018 Cough Oxycodone 12/04/2003 nausea, stomach pains Tetanus Toxoid 01/28/2009 Local reaction, fever documented as of this encounter (statuses as of 07/12/2024) Medications Medication Sig Dispensed Refills Start Date [...] on management encounter,Aortocoro nary bypass status,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),FCI current use of anticoagulant therapy TAKE 1/2 [...] THE MORNING 60 Capsule 5 4 Active Hospital, Clinic, or Other Facility Administered Medication Ordered Dose Route Frequency Start Date End Date Status potassium chloride ER tab 10 mEqIndications:Acute on chronic diastolic congestive heart failure (HCC) 10 mEq OR Daily(AM) 12/24/2019 Activ e documented as of this encounter (statuses as of 07/12/2024) Active Problems Problem Noted Date Diagnosed Date [...] macular edema, left eye 12/28/2020 Atherosclerosis of [place] co ronary artery of [place] heart without angina pectoris 12/19/2019 Persistent atrial [...] as of this encounter (statuses as of 07/12/2024) Resolved Problems Problem Noted Date Diagnosed Date [...] Nummular eczema 09/06/2013 07/26/2021 [employer] Other*[id number] 02/03/2012 11/29/2016 Overview: Study Titile: [employer] Markers for Patients with Cardiovascular Disease Project # [id number] PI: Merary Rivera MD Please call [phone] with study related questions Irritable bowel syndrome 05/14/201001/2021 Type 2 diabetes mellitus wit h hemoglobin A1c goal of less than 7.0% 08/06/2009 01/08/2010 Overview: Modified per Diabetes protocol #14. ICD-10 update of inactive term ADVANCE DIRECTIVE INFORMATION 09/27/2007 07/26/2021 Overview: Yes-copy on file Carpal tunnel syndrome 04/14/200404/01 Atherosclerosis of [place] co ronary artery of [place] heart without angina pectoris 04/14/2004 Overview: Duplicate. [...] as of this encounter (statuses as of 07/12/2024) Immunizations Name Administration Dates Next Due COVID-19 mRNA, LNP-s, No Pre serve, 2-Dose Series ([employer]) 06/22/2021,05/08/2021 Pneumococcal Conjugate Vacc, 13 Valent (Prevnar) 08/12/2016 Pneumococcal Polysaccharide PPV23 (Pneumovax) ,07/20/2005 Seasonal Influenza, Quadrivalent Hd (Fluzone Hd) 08/30/2023,09/23/2022 Seasonal Influenza, Trivalen t, (IIV3), with Preserv, (Fluzone) 08/04/2006 Seasonal Influenza, Trivalen t, Adjuvanted, 65+ YRS, [...] No 05/24/2024 Does the household have a [facility] source of income? (Household - for ages [...] * Hali De La Torre EPC - 07/12/2024 10:43 AM EDT Session Encounter: Patient is participating [facility] in partnership with [employer] is a specialized [employer] that specializes in providing virtual cardiac rehab services. Session #28 completed. Please refer to scan document for session details. Session type: Education Group Session duration: 60 minutes documented in this encounter Plan of Treatment Upcoming Encounters Date Type Department Care Team (Late st Contact Info) Description 08/13/2024 11:00 AM EDT Anticoagulation Pharmacy, [place] [address] [facility], [place] [address] [facility] [address] [facility], [place] [address] 09/02/2024 10:00 AM EST Office Visit Cardiology, [facility] [place] [address] [place] Momin PA-C [address] [facility] [place] [address] 09/02/2024 10:00 AM EST Cardiac Studies Cardiology, [facility] [address] [facility] [place] [address] [facility] [place] [address] [facility] [place] [address] 09/23/2024 9:00 AM EST Office Visit Family Practice, [place] [address] [facility] [phone] Pete Ambriz MD [address] [facility] [address] 10/01/2024 10:00 AM EST Office Visit Pharmacy, [place] [address] [facility] [address] [facility] [address] [facility] [address] 10/01/2024 10:30 AM EST Anticoagulation Pharmacy, [place] [address] [facility] [address] [facility] [address] [facility] [address] 05/14/2025 10:00 AM EDT Nurse Only Ancillary Department, [place] [address] [place] [address] [place], Nurse Annual Wellness [address] [facility] [place] [address] Scheduled Procedures Name Priority Associated Diagnoses Date/Ti [...] Additional history exists CKD HGB USE SMARTSET 26657 01/28/202501/28, 01/29/2024, 12/27/2023, Additional history exists CKD PHOS USE SMARTSET 72954 01/28/2025 04/0 05/2024, 02/01/2023, 07/29/2022, Additional history [...] D LEVEL ONCE IN A LIFETIME-USE SMARTSET# [id number] Completed 07/03/2024, 08/28/2008, 04/07/2008, Additional history exists [...] 2:56 PM 01/11/2005 3:56 PM Care Teams Sheep And Wheat Farmer Relationship Specialty Start Date End Date Pete Ambriz MD [address] [place] [address] PCP - General Internal Medicine 05/08/24 documented as of this encounter
--- OUTSIDE RECORDS SUMMARY | 2024-10-24 23:42 | External Medical Summary | Summary of Care ---
Author Name Unknown Organization [facility] Address [address] [facility] [place] [address] Phone [phone] Care Team Providers Care Transcribing Operators Supervisor Name Role Phone Pete Ambriz MD Primary Care Provider [phone] Reason for Visit * Reason Comments Cardiac Rehab Encounter Details Date Type Department Care Team (Late st Contact Info) Description 07/08/2024 8:00 AM EDT Telemedicine Cardiac Rehab [facility], [facility] [address] [place] [address] [place] [address] [facility], Virtual Cardiac Rehab [address] [place] [address] [place] [address] Aortocoronary bypass status* Allergies Active Allergy Reactions Criticality Noted Date Comments Cephalexin Unknown 09/12/2002 Lisinopril 12/07/2018 Cough Oxycodone 12/04/2003 nausea, stomach pains Tetanus Toxoid 01/28/2009 Local reaction, fever documented as of this encounter (statuses as of 07/16/2024) Medications Medication Sig Dispensed Refills Start Date [...] on management encounter,Aortocoro nary bypass status,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) TAKE 2 TABLETS BY MOUTH DAILY WITH MEALS 4 Active Repaglinide 1 MG Oral Tablet (Prandin)Indication s:Type 2 diabetes mellitus with hemoglobin A1c goal of 7.0%-8.0% ([facility]) Take 1 Tablet by mouth in [...] as of this encounter (statuses as of 07/16/2024) Active Problems Problem Noted Date Diagnosed Date [...] Per Lipid Taxonomy. 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 Pulmonary hypertension DISH (diffuse idiopathic skeletal hyperostosis) documented as of this encounter (statuses as of 07/16/2024) Resolved Problems Problem Noted Date Diagnosed Date [...] Nummular eczema 09/06/2013 07/26/2021 [employer] Other*[id number] 02/03/2012 11/29/2016 Overview: Study Titile: [employer] Markers for Patients with Cardiovascular Disease Project # [id number] PI: Merary Rivera MD Please call [phone] with study related questions Irritable bowel syndrome 05/14/201001/2021 Type 2 diabetes mellitus wit h hemoglobin A1c goal of less than 7.0% 08/06/2009 01/08/2010 Overview: Modified per Diabetes protocol #14. ICD-10 update of inactive term ADVANCE DIRECTIVE INFORMATION 09/27/2007 07/26/2021 Overview: Yes-copy on file Carpal tunnel syndrome 04/14/200404/01 Atherosclerosis of [place] co ronary artery of [place] heart without angina pectoris 04/14/2004 Overview: Duplicate. [...] as of this encounter (statuses as of 07/16/2024) Immunizations Name Administration Dates Next Due COVID-19 [...] * Hali De La Torre EPC - 07/16/2024 6:44 PM EDT Session Encounter: Patient is participating in [facility] Intensive Cardiac Rehab Program in partnership with [employer] is a specialized [employer] that specializes in providing virtual cardiac rehab services. Session #33 completed. Please refer to scan document for session details. Session type: Exercise Individual Session duration: 35 minutes documented in this encounter Plan of Treatment Upcoming Encounters Date Type Department Care Team (Late st Contact Info) Description 08/13/2024 11:00 AM EDT [facility]ticoagulation Pharmacy, [place] [address] [facility] [address] [facility] [address] [facility] [facility] [address] 09/02/2024 10:00 AM EST Office Visit Cardiology, [facility] 132 [facility] [place] [address] [place] Momin PA-C [address] [facility] [place] [address] 09/02/2024 10:00 AM EST Cardiac Studies Cardiology, [facility] 132 [facility] [place] [address] [facility] 132 [facility] [place] [address] 09/23/2024 9:00 AM EST Office [facility], [place] [address] [address] [facility] [place] [address] Pete Ambriz MD [address] [facility], [place] [address] 10/01/2024 10:00 AM EST Office Visit Pharmacy, [place] [address] [facility], [place] [address] [facility] [address] [facility], [place] [address] 10/01/2024 10:30 AM EST Anticoagulation Pharmacy, [place] [address] [facility], [place] [address] [facility] [address] [facility], [place] [address] 05/14/2025 10:00 AM EDT Nurse Only Ancillary Department, [place] [address] [facility] [address] [place], Nurse Annual Wellness [address] [facility], [place] [address] Scheduled Procedures Name Priority Associated Diagnoses Date/Ti me COLONOSCOPY FLEXIBLE PROXIMA L DIAGNOSTIC Recall History of colonic polyps Health Maintenance Due Date Last Done Comments Colonoscopy 02/07/2022 02/07/2019, 01/21, 03/18/2010 COVID-19 Vaccine ( season) 2024 06/22/2021, 05/08/2021 Influenza Vaccine (FLU shot) (#1) 2024 08/30/2023, 09/23/2022, 10/01/2019, Additional history exists HbA1c 11/24/2024 05/24/2024, 0 05/2024, 07/25/2023, Additional history exists GFR 12/31/2024 07/03/2024, 11/2023, 12/27/2023, Additional history exists B-12 01/28/2025 01/29/2024, 01/21, 07/29/2022, Additional history exists CKD HGB USE SMARTSET 50531 01/28/202501/28, 01/29/2024, 12/27/2023, Additional history exists CKD PHOS USE SMARTSET 82136 01/28/2025 04/0 05/2024, 02/01/2023, 07/29/2022, Additional history [...] D LEVEL ONCE IN A LIFETIME-USE SMARTSET# [id number] Completed 07/03/2024, 08/28/2008, 04/07/2008, Additional history exists [...] 2:56 PM 01/11/2005 3:56 PM Care Teams Transcribing Operators Supervisor Relationship Specialty Start Date End Date Pete Ambriz MD [address] [place] [address] PCP - General Internal Medicine 05/08/24 documented as of this encounter
--- OUTSIDE RECORDS SUMMARY | 2024-10-24 23:42 | External Medical Summary | Summary of Care ---
Author Name Unknown Organization [facility] Address [address] [facility] [place] [address] Phone [phone] Care Team Providers Care Edge Trimmer Mechanic Name Role Phone Pete Ambriz MD Primary Care Provider [phone] Reason for Visit * Reason Comments Cardiac Rehab Encounter Details Date Type Department Care Team (Late st Contact Info) Description 07/03/2024 8:00 AM EDT Telemedicine Cardiac Rehab [facility], [facility] [address] [place] [address] [place] [address] [facility], Virtual Cardiac Rehab [address] [place] [address] [place] [address] Aortocoronary bypass status* Allergies Active Allergy Reactions [...] on management encounter,Aortocoro nary bypass status,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),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 TAKE 1/2 TO 1 TABLET BY MOUTH ONCE DAILY DIRECTED BY COUMADIN CLINIC 90 Tablet 3 4 Active metFORMIN HCl ER 500 MG Oral Tablet Extended Release 24 Hour (Glucophage XR)Indications:Type 2 diabetes mellitus with hemoglobin A1c goal of 7.0%-8.0% ([facility]) TAKE 2 TABLETS BY MOUTH DAILY WITH MEALS 4 Active Repaglinide 1 MG Oral Tablet (Prandin)Indication s:Type 2 diabetes mellitus with hemoglobin A1c goal of 7.0%-8.0% ([facility]) Take 1 Tablet by mouth in the [...] macular edema, left eye 12/28/2020 Atherosclerosis of [place] co ronary artery of [place] heart without angina pectoris 12/19/2019 Persistent atrial fibrillation 11/28/2019 HTN, goal below 130/80 04/26/2019 Type 2 diabetes mellitus with diabetic neuropath y 02/11/2019 Chronic diarrhea 05/14/2010 Type 2 diabetes mellitus wit h hemoglobin A1c goal of 7.0%-8.0% 01/08/2010 Overview: ICD-10 update of inactive term DYSLIPIDEMIA, GOAL LDL BELOW 70 10/12/2009 Overview: Per Lipid Taxonomy. 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 ICD-10 update of inactive term ADVANCE DIRECTIVE INFORMATION 09/27/2007 07/26/2021 Overview: Yes-copy on file Carpal tunnel syndrome 04/14/200404/01 Atherosclerosis of [place] co ronary artery of [place] heart without angina pectoris 04/14/2004 Overview: Duplicate. [...] Hali De La Torre EPC - 07/12/2024 10:44 AM EDT Session Encounter: Patient is participating in [facility] Intensive Cardiac Rehab Program in partnership with [employer] is a specialized [employer] that specializes in providing virtual cardiac rehab services. Session #29 completed. Please refer to scan document for session details. Session type: Exercise Individual Session duration: 35 minutes documented in this encounter Plan of Treatment Upcoming Encounters Date Type Department Care Team (Late st Contact Info) Description 08/13/2024 11:00 AM EDT Anticoagulation Pharmacy, [place] [address] [address] [facility] [address] [facility] [address] [facility] [address] 09/02/2024 10:00 AM EST Office Visit Cardiology, [facility] 132 [facility] [place] [address] [place] Momin PA-C 132 [facility] [place] [address] 09/02/2024 10:00 AM EST Cardiac Studies Cardiology, [facility] 132 [facility] [place] [address] [facility] 132 [facility] [place] [address] 09/23/2024 9:00 AM EST Office Visit [facility], [place] [address] [address] [facility] [facility] [address] Pete Ambriz MD [address] [facility], [place] [address] 10/01/2024 10:00 AM EST Office Visit Pharmacy, [place] [address] [facility], [place] [address] [facility] [address] [facility], [place] [address] 10/01/2024 10:30 AM EST Anticoagulation Pharmacy, [place] [address] [facility], [place] [address] [facility] [address] [facility], [place] [address] 05/14/2025 10:00 AM EDT Nurse Only Ancillary Department, [place] [address] [address] [facility] [address] [place], Nurse Annual Wellness [address] [facility], [place] [address] Scheduled Procedures Name Priority Associated Diagnoses Date/Ti [...] Additional history exists CKD HGB USE SMARTSET 59915 01/28/202501/28, 01/29/2024, 12/27/2023, Additional history exists CKD PHOS USE SMARTSET 51667 01/28/2025 04/0 05/2024, 02/01/2023, 07/29/2022, Additional history [...] D LEVEL ONCE IN A LIFETIME-USE SMARTSET# 44922 Completed 07/03/2024, 08/28/2008, 04/07/2008, Additional history exists [...] 2:56 PM 01/11/2005 3:56 PM Care Teams Edge Trimmer Mechanic Relationship Specialty Start Date End Date Pete Ambriz MD [address] [place] [address] PCP - General Internal Medicine 05/08/24 documented as of this encounter
--- OUTSIDE RECORDS SUMMARY | 2024-10-24 23:42 | External Medical Summary | Summary of Care ---
Author Name Unknown Organization [facility] Address [address] [facility] [place] [address] Phone [phone] Care Team Providers Care Slip Cover Operator Name Role Phone Pete Ambriz MD Primary Care Provider [phone] Reason for Visit * Reason Comments Cardiac Rehab Encounter Details Date Type Department Care Team (Late st Contact Info) Description 07/04/2024 9:00 AM EDT Telemedicine Cardiac Rehab Advanced, Virtual [address] [place] [address] [place] [address] Advanced, Virtual Cardiac Rehab [address] [place] [address] [place] [address] Aortocoronary bypass status* Allergies Active Allergy Reactions [...] on management encounter,Aortocoro nary bypass status,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),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 TAKE 1/2 TO 1 TABLET BY MOUTH ONCE DAILY DIRECTED BY [facility] 90 Tablet 3 4 Active metFORMIN HCl ER 500 MG Oral Tablet Extended Release 24 Hour (Glucophage XR)Indications:Type 2 diabetes mellitus with hemoglobin A1c goal of 7.0%-8.0% ([facility]) TAKE 2 TABLETS BY MOUTH DAILY WITH MEALS 4 Active Repaglinide 1 MG Oral Tablet (Prandin)Indication s:Type 2 diabetes mellitus with hemoglobin A1c goal of 7.0%-8.0% ([facility]) Take 1 Tablet by mouth in [...] macular edema, left eye 12/28/2020 Atherosclerosis of [place] co ronary artery of [place] heart without angina pectoris 12/19/2019 [...] Nummular eczema 09/06/2013 07/26/2021 [employer] Other*[id number] 02/03/2012 11/29/2016 Overview: Study Titile: [employer] Markers for Patients with Cardiovascular Disease Project # [id number] PI: Merary Rivera MD Please call [phone] with study related questions Irritable bowel syndrome 05/14/201001/2021 Type 2 diabetes mellitus wit h hemoglobin A1c goal of less than 7.0% 08/06/2009 01/08/2010 Overview: Modified per Diabetes protocol #14. ICD-10 update of inactive term ADVANCE DIRECTIVE INFORMATION 09/27/2007 07/26/2021 Overview: Yes-copy on file Carpal tunnel syndrome 04/14/200404/01 Atherosclerosis of [place] co ronary artery of [place] heart without angina pectoris 04/14/2004 [...] Hali De La Torre EPC - 07/12/2024 10:46 AM EDT Session Encounter: Patient is participating in [facility] Intensive Cardiac Rehab Program in partnership with [facility] is a specialized [employer] that specializes in providing virtual cardiac rehab services. Session #31 completed. Please refer to scan document for session details. Session type: Education Group Session duration: 60 minutes documented in this encounter Plan of Treatment Upcoming Encounters Date Type Department Care Team (Late st Contact Info) Description 08/13/2024 11:00 AM EDT [facility]tico[facility] Pharm[facility], [place] [address] [facility] [address] [facility] [address] [facility] [address] 09/02/2024 10:00 AM EST Office Visit Cardiology, [facility] [address] [facility] [place] [address] Dayton Momin PA-C 132 [facility] [place] [address] 09/02/2024 10:00 AM EST Cardiac Studies Cardiology, [facility] [address] [facility] [place] [address] [facility] 132 [facility] [place] [address] 09/23/2024 9:00 AM EST Office Visit [place] [address] [address] [facility] [address] Ptee Ambriz MD [address] [facility], [place] [address] 10/01/2024 10:00 AM EST Office Visit Pharmacy, [place] [address] [facility], [place] [address] [facility] [address] [facility], [place] [address] 10/01/2024 10:30 AM EST Anticoagulation Pharmacy, [place] [address] [facility], [place] [address] [facility] [address] [facility], [place] [address] 05/14/2025 10:00 AM EDT Nurse Only Ancillary Department, [place] [address] [address] [facility] [address] [place], Nurse Annual Wellness [address] [facility], [place] [address] Scheduled Procedures Name Priority Associated Diagnoses Date/Ti [...] Additional history exists CKD HGB USE SMARTSET 14521 01/28/202501/28, 01/29/2024, 12/27/2023, Additional history exists CKD PHOS USE SMARTSET 15279 01/28/2025 04/0 05/2024, 02/01/2023, 07/29/2022, Additional history [...] D LEVEL ONCE IN A LIFETIME-USE SMARTSET# [id number] Completed 07/03/2024, 08/28/2008, 04/07/2008, Additional history exists [...] 2:56 PM 01/11/2005 3:56 PM Care Teams Slip Cover Operator Relationship Specialty Start Date End Date Pete Ambriz MD [address] [place] [address] PCP - General Internal Medicine 05/08/24 documented as of this encounter
--- OUTSIDE RECORDS SUMMARY | 2024-10-24 23:42 | External Medical Summary | Summary of Care ---
Author Name Unknown Organization [facility] Address [address] [place] [address] Phone [phone] Care Team Providers Care Pharmacy Delivery Driver Name Role Phone Pete Ambriz MD Primary Care Provider [phone] Reason for Visit * Reason Onset Date Comments Advice 07/19/2024 Not Feeling Bett er Med Request 07/19/2024 Encounter Details Date Type Department Care Team (Late st Contact Info) Description 07/19/2024 Telephone [facility] [address] [place] [address] Pete Ambriz MD [address] [place] [address] Advice (Not Feeling Better); Med Request Allergies Active Allergy Reactions Criticality Noted Date Comments Cephalexin Unknown 09/12/2002 Lisinopril 12/07/2018 Cough Oxycodone 12/04/2003 nausea, stomach pains Tetanus Toxoid 01/28/2009 Local reaction, fever documented as of this encounter (statuses as of 07/22/2024) Medications Medication Sig Dispensed Refills Start Date [...] on management encounter,Aortocoro nary bypass status,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),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 TAKE 1/2 TO 1 TABLET BY MOUTH ONCE DAILY DIRECTED BY [facility] 90 Tablet 3 4 Active metFORMIN HCl ER 500 MG Oral Tablet Extended Release 24 Hour (Glucophage XR)Indications:Type 2 diabetes mellitus with hemoglobin A1c goal of 7.0%-8.0% ([facility]) TAKE 2 TABLETS BY MOUTH DAILY WITH MEALS 4 Active Repaglinide 1 MG Oral Tablet (Prandin)Indication s:Type 2 diabetes mellitus with hemoglobin A1c goal of 7.0%-8.0% ([facility]) Take 1 Tablet by mouth [...] as of this encounter (statuses as of 07/22/2024) Active Problems Problem Noted Date Diagnosed Date [...] edema, left eye 12/28/2020 Atherosclerosis of [place] co ronary artery of [place] heart without angina pectoris 12/19/2019 Persistent atrial fibrillation 11/28/2019 HTN, goal below 130/80 04/26/2019 Type 2 diabetes mellitus with diabetic neuropath y 02/11/2019 Chronic diarrhea 05/14/2010 Type 2 diabetes mellitus wit h hemoglobin A1c goal of 7.0%-8.0% 01/08/2010 Overview: ICD-10 update of inactive term DYSLIPIDEMIA, GOAL LDL BELOW 70 10/12/2009 Overview: Per Lipid Taxonomy. 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 Pulmonary hypertension DISH (diffuse idiopathic skeletal hyperostosis) documented as of this encounter (statuses as of 07/22/2024) Resolved Problems Problem Noted Date Diagnosed Date [...] Nummular eczema 09/06/2013 07/26/2021 [employer] Other*[id number] 02/03/2012 11/29/2016 Overview: Study Titile: [employer] Markers for Patients with Cardiovascular Disease Project # [id number] PI: Merary Rivera MD Please call [phone] with study related questions Irritable bowel syndrome 05/14/201001/2021 Type 2 diabetes mellitus wit h hemoglobin A1c goal of less than 7.0% 08/06/2009 01/08/2010 Overview: Modified per Diabetes protocol #14. ICD-10 update of inactive term ADVANCE DIRECTIVE INFORMATION 09/27/2007 07/26/2021 Overview: Yes-copy on file Carpal tunnel syndrome 04/14/200404/01 Atherosclerosis of [place] co ronary artery of [place] heart without angina pectoris 04/14/2004 Overview: Duplicate. [...] as of this encounter (statuses as of 07/22/2024) Immunizations Name Administration Dates Next Due COVID-19 [...] acute appointment * Telephone Encounter - Angelina Malone, BERNARD - 07/19/2024 3:57 PM EDT 1. When [...] have any questions. Thank you for choosing [facility] [place] for your health care. Sincerely, [place] Do MD documented in this encounter Plan of Treatment Upcoming Encounters Date Type Department Care Team (Late st Contact Info) Description 08/13/2024 11:00 AM EDT Anticoagulation Pharmacy, [address] [address] 09/02/2024 10:00 AM EST Office Visit Cardiology, [facility] [address] [facility] [place] [address] [place] Momin PA-C [address] [place] [address] 09/02/2024 10:00 AM EST Cardiac Studies Cardiology, [facility] [address] [place] [address] [facility] [address] [place] [address] 09/23/2024 9:00 AM EST Office Visit Family [facility], [place] [address] [address] [facility], [place] [address] Pete Ambriz MD [address] [place] [facility] [address] 10/01/2024 10:00 AM EST Office Visit Pharmacy, [place] [address] [place] [facility] [place] [address] [facility] [address] [place] [facility] [address] 10/01/2024 10:30 AM EST Anticoagulation Pharmacy, [place] [address] [place] [facility] [address] [facility] [address] [place] [facility] [address] 05/14/2025 10:00 AM EDT Nurse Only Ancillary Department, [place] [address] [place] [facility] [address] [place], Nurse Annual Wellness [address] [place] [address] Scheduled Procedures Name Priority Associated Diagnoses Date/Ti [...] Additional history exists CKD HGB USE SMARTSET 58795 01/28/202501/28, 01/29/2024, 12/27/2023, Additional history exists CKD PHOS USE SMARTSET 37251 01/28/2025 04/0 05/2024, 02/01/2023, 07/29/2022, Additional history [...] D LEVEL ONCE IN A LIFETIME-USE SMARTSET# 05622 Completed 07/03/2024, 08/28/2008, 04/07/2008, Additional history exists [...] 2:56 PM 01/11/2005 3:56 PM Care Teams Pharmacy Delivery Driver Relationship Specialty Start Date End Date Pete Ambriz MD [address] [place] [address] PCP - General Internal Medicine 05/08/24 documented as of this encounter
--- OUTSIDE RECORDS SUMMARY | 2024-10-24 23:42 | External Medical Summary | Summary of Care ---
Author Name Unknown Organization [facility] Address [address] [facility] [place] [address] Phone [phone] Care Team Providers Care Argon Tester Name Role Phone Pete Ambriz MD Primary Care Provider [phone] Encounter Details Date Type Department Care Team (Late st Contact Info) Description 07/11/2024 Population Health External Data Unspecified Department Allergies Active Allergy Reactions Criticality Noted Date Comments Cephalexin Unknown 09/12/2002 Lisinopril 12/07/2018 Cough Oxycodone 12/04/2003 nausea, stomach pains Tetanus Toxoid 01/28/2009 Local reaction, fever documented as of this encounter (statuses as of 07/15/2024) Medications Medication Sig Dispensed Refills Start Date [...] on management encounter,Aortocoro nary bypass status,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 ([facility]),FCI current use of anticoagulant therapy TAKE 1/2 TO 1 TABLET BY MOUTH ONCE DAILY DIRECTED BY [facility]IC 90 Tablet 3 4 Active metFORMIN HCl ER 500 MG Oral Tablet Extended Release 24 Hour (Glucophage XR)Indications:Type 2 diabetes mellitus with hemoglobin A1c goal of 7.0%-8.0% ([facility]) TAKE 2 TABLETS BY MOUTH DAILY WITH MEALS 4 Active Repaglinide 1 MG Oral Tablet (Prandin)Indication s:Type 2 diabetes mellitus with hemoglobin A1c goal of 7.0%-8.0% ([facility]) Take 1 Tablet by mouth [...] as of this encounter (statuses as of 07/15/2024) Active Problems Problem Noted Date Diagnosed Date [...] macular edema, left eye 12/28/2020 Atherosclerosis of [place] co ronary artery of [place] heart without angina pectoris 12/19/2019 Persistent atrial fibrillation 11/28/2019 HTN, goal below 130/80 04/26/2019 Type 2 diabetes mellitus with diabetic neuropath y 02/11/2019 Chronic diarrhea 05/14/2010 Type 2 diabetes mellitus wit h hemoglobin A1c goal of 7.0%-8.0% 01/08/2010 Overview: ICD-10 update of inactive term DYSLIPIDEMIA, GOAL LDL BELOW 70 10/12/2009 Overview: Per Lipid Taxonomy. 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 Pulmonary hypertension DISH (diffuse idiopathic skeletal hyperostosis) documented as of this encounter (statuses as of 07/15/2024) Resolved Problems Problem Noted Date Diagnosed Date [...] Nummular eczema 09/06/2013 07/26/2021 [employer] Other*[id number] 02/03/2012 11/29/2016 Overview: Study Titile: [employer] Markers for Patients with Cardiovascular Disease Project # [id number] PI: Merary Rivera MD Please call [phone] with study related questions Irritable bowel syndrome 05/14/201001/2021 Type 2 diabetes mellitus wit h hemoglobin A1c goal of less than 7.0% 08/06/2009 01/08/2010 Overview: Modified per Diabetes protocol #14. ICD-10 update of inactive term ADVANCE DIRECTIVE INFORMATION 09/27/2007 07/26/2021 Overview: Yes-copy on file Carpal tunnel syndrome 04/14/200404/01 Atherosclerosis of [place] co ronary artery of [place] heart without angina pectoris 04/14/2004 Overview: Duplicate. [...] as of this encounter (statuses as of 07/15/2024) Immunizations Name Administration Dates Next Due COVID-19 [...] Info) Description 08/13/2024 11:00 AM EDT Anticoagulation PharmacyLudivina [facility], [place] [address] [facility] [address] [facility], [place] [address] 09/02/2024 10:00 AM EST Office Visit Cardiology, [facility] [place] [address] [place] Momin PA-C [facility] [place] [address] 09/02/2024 10:00 AM EST Cardiac Studies Cardiology, [facility] [place] [place] [address] [facility] [address] [facility] [place] [address] 09/23/2024 9:00 AM EST Office Visit Family Practice, [place] [address] [address] [facility], [place] [address] Pete Ambriz MD [address] [facility], [place] [address] 10/01/2024 10:00 AM EST Office Visit Pharmacy, [place] [address] [address] [facility] [address] [facility] [address] [facility], [place] [address] 10/01/2024 10:30 AM EST Anticoagulation Pharmacy, [place] [address] [address] [facility], [place] [address] [facility] [address] [facility], [place] [address] 05/14/2025 10:00 AM EDT Nurse Only Ancillary Department, [place] [address] [place] [address] [place], Nurse Annual Wellness [address] [place] [id number] Scheduled Procedures Name Priority Associated Diagnoses Date/Ti [...] Additional history exists CKD HGB USE SMARTSET 51557 01/28/202501/28, 01/29/2024, 12/27/2023, Additional history exists CKD PHOS USE SMARTSET 22363 01/28/2025 04/0 05/2024, 02/01/2023, 07/29/2022, Additional history [...] D LEVEL ONCE IN A LIFETIME-USE SMARTSET# 31099 Completed 07/03/2024, 08/28/2008, 04/07/2008, Additional history exists [...] 2:56 PM 01/11/2005 3:56 PM Care Teams Argon Tester Relationship Specialty Start Date End Date Pete Ambriz MD [address] [place] [facility] [place] [address] PCP - General Internal Medicine 05/08/24 documented as of this encounter
--- OUTSIDE RECORDS SUMMARY | 2024-10-24 23:42 | External Medical Summary | Summary of Care ---
Author Name Unknown Organization [facility] Address [address] [place] [address] Phone [phone] Care Team Providers Care Gritting Machine Operator Name Role Phone Pete Ambriz MD Primary Care Provider [phone] Reason for Visit * Reason Onset Date Comments Advice 07/19/2024 Not Feeling Bett er Med Request 07/19/2024 Encounter Details Date Type Department Care Team (Late st Contact Info) Description 07/19/2024 Telephone [facility] [address] [place] [address] Pete Ambriz MD [address] [place] [address] Advice (Not Feeling Better); Med [...] on management encounter,Aortocoro nary bypass status,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),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 TAKE 1/2 TO 1 TABLET BY MOUTH ONCE DAILY DIRECTED BY [facility]IN CLINIC 90 Tablet 3 4 Active metFORMIN HCl ER 500 MG Oral Tablet Extended Release 24 Hour (Glucophage XR)Indications:Type 2 diabetes mellitus with hemoglobin A1c goal of 7.0%-8.0% ([facility]) TAKE 2 TABLETS BY MOUTH [...] macular edema, left eye 12/28/2020 Atherosclerosis of [place] co ronary artery of [place] heart without angina pectoris 12/19/2019 Persistent atrial fibrillation 11/28/2019 HTN, goal below 130/80 04/26/2019 Type 2 diabetes mellitus with diabetic neuropath y 02/11/2019 Chronic diarrhea 05/14/2010 Type 2 diabetes mellitus wit h hemoglobin A1c goal of 7.0%-8.0% 01/08/2010 Overview: ICD-10 update of inactive term DYSLIPIDEMIA, GOAL LDL BELOW 70 10/12/2009 Overview: Per Lipid Taxonomy. 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 ICD-10 update of inactive term ADVANCE DIRECTIVE INFORMATION 09/27/2007 07/26/2021 Overview: Yes-copy on file Carpal tunnel syndrome 04/14/200404/01 Atherosclerosis of [place] co ronary artery of [place] heart without angina pectoris 04/14/2004 Overview: Duplicate. [...] have any questions. Thank you for choosing [facility] for your health care. Sincerely, [place] Do MD documented in this encounter Plan of Treatment Upcoming Encounters Date Type Department Care Team (Late st Contact Info) Description 08/13/2024 11:00 AM EDT Anticoagulation Pharmacy, [place] [address] [place] [address] [place] [address] [place] [address] 09/02/2024 10:00 AM EST Office Visit Cardiology, [facility] [address] [place] [address] [place] Momin, PA-C [address] [facility] [address] 09/02/2024 10:00 AM EST Cardiac Studies Cardiology, [facility] [address] [place] [address] [facility] [address] [place] [address] 09/23/2024 9:00 AM EST Office Visit [place] [address] [place] [facility] [place] [address] Pete Ambriz MD [address] [place] [facility] [place] [address] 10/01/2024 10:00 AM EST Office Visit Pharmacy, [place] [address] [place] [facility] [place] [address] [facility] [address] [place] [facility] [place] [address] 10/01/2024 10:30 AM EST Anticoagulation Pharmacy, [place] [address] [facility], [place] [address] [facility] [address] [place] [facility] [place] [address] 05/14/2025 10:00 AM EDT Nurse Only Ancillary Department, [place] [address] [place] [facility] [place] [address] [place], Nurse Annual Wellness [address] [facility] [place] [address] Scheduled Procedures Name Priority Associated Diagnoses Date/Ti me COLONOSCOPY FLEXIBLE PROXIMA L DIAGNOSTIC Recall History of colonic polyps Health Maintenance Due Date Last Done Comments Colonoscopy 02/07/2022 02/07/2019, 01/21, 03/18/2010 COVID-19 Vaccine ( season) 2024 06/22/2021, 05/08/2021 Influenza Vaccine (FLU shot) (#1) 2024 08/30/2023, 09/23/2022, 10/01/2019, Additional history exists HbA1c 11/24/2024 05/24/2024, 040 05/2024, 07/25/2023, Additional history exists GFR 12/31/2024 07/03/2024, 11/2023, 12/27/2023, Additional history exists B-12 01/28/2025 01/29/2024, 01/21, 07/29/2022, Additional history exists CKD HGB USE SMARTSET 80833 01/28/202501/28, 01/29/2024, 12/27/2023, Additional history exists CKD PHOS USE SMARTSET 67646 01/28/2025 04/0 05/2024, 02/01/2023, 07/29/2022, Additional history [...] D LEVEL ONCE IN A LIFETIME-USE SMARTSET# 16074 Completed 07/03/2024, 08/28/2008, 04/07/2008, Additional history exists [...] 2:56 PM 01/11/2005 3:56 PM Care Teams Gritting Machine Operator Relationship Specialty Start Date End Date Pete Ambriz MD [address] [place] [facility] [place] [address] PCP - General Internal Medicine 05/08/24 documented as of this encounter
--- OUTSIDE RECORDS SUMMARY | 2024-10-24 23:42 | External Medical Summary | Summary of Care ---
Author Name Unknown Organization [facility] Address [address] [facility] [place] [address] Phone [phone] Care Team Providers Care Gold Wheel Blocker And Polisher Name Role Phone Pete Ambriz MD Primary Care Provider Reason for Visit * Reason Comments Cardiac Rehab Encounter Details Date Type Department Care Team (Late st Contact Info) Description 07/05/2024 9:00 AM EDT Telemedicine Cardiac Rehab [facility], Virtual [address] [place] [address] [place] [address] Advanced, Virtual Cardiac Rehab [address] [place] [address] [place] [address] Aortocoronary bypass status* Allergies Active Allergy Reactions [...] macular edema, left eye 12/28/2020 Atherosclerosis of [place] co ronary artery of [place] heart without angina pectoris 12/19/2019 Persistent [...] Nummular eczema 09/06/2013 07/26/2021 [employer] Other*[id number] 02/03/2012 11/29/2016 Overview: Study Titile: [employer] Markers for Patients with Cardiovascular Disease Project # [id number] PI: Merary Rivera MD Please call [phone] with study related questions Irritable bowel syndrome 05/14/201001/2021 Type 2 diabetes mellitus wit h hemoglobin A1c goal of less than 7.0% 08/06/2009 01/08/2010 Overview: Modified per Diabetes protocol #14. ICD-10 update of inactive term ADVANCE DIRECTIVE INFORMATION 09/27/2007 07/26/2021 Overview: Yes-copy on file Carpal tunnel syndrome 04/14/200404/01 Atherosclerosis of [place] co ronary artery of [place] heart without angina pectoris 04/14/2004 Overview: Duplicate. [...] Hali De La Torre EPC - 07/12/2024 10:47 AM EDT Session Encounter: Patient is participating in [facility] Intensive Cardiac Rehab Program in partnership with [employer] is a specialized [employer] that specializes in providing virtual cardiac rehab services. Session #32 completed. Please refer to scan document for session details. Session type: Exercise Individual Session duration: 35 minutes documented in this encounter Plan of Treatment Upcoming Encounters Date Type Department Care Team (Late st Contact Info) Description 08/13/2024 11:00 AM EDT [facility]ticoagulation Pharm[facility], [place] [address] [facility] [address] [facility] [address] [facility] [address] 09/02/2024 10:00 AM EST Office Visit Cardiology, [facility] [address] [facility] [place] [address] [place] Momin PA-C 132 [facility] [place] [address] 09/02/2024 10:00 AM EST Cardiac Studies Cardiology, [facility] 132 [facility] [place] [address] [facility] 132 [facility] [place] [address] 09/23/2024 9:00 AM EST Office Visit [facility], [place] [address] [address] [facility] [address] Pete Ambriz MD [address] [facility], [place] [address] 10/01/2024 10:00 AM EST Office Visit Pharmacy, [place] [address] [facility], [place] [address] [facility] [address] [facility], [place] [address] 10/01/2024 10:30 AM EST Anticoagulation Pharmacy, [place] [address] [facility], [place] [address] [facility] [address] [facility], [place] [address] 05/14/2025 10:00 AM EDT Nurse Only Ancillary Department, [place] [address] [facility] [address] [place], Nurse Annual Wellness [address] [facility], [place] [address] Scheduled Procedures Name Priority Associated Diagnoses Date/Ti [...] Additional history exists CKD HGB USE SMARTSET 11992 01/28/202501/28, 01/29/2024, 12/27/2023, Additional history exists CKD PHOS USE SMARTSET 11521 01/28/2025 04/0 05/2024, 02/01/2023, 07/29/2022, Additional history [...] D LEVEL ONCE IN A LIFETIME-USE SMARTSET# 66142 Completed 07/03/2024, 08/28/2008, 04/07/2008, Additional history exists [...] 2:56 PM 01/11/2005 3:56 PM Care Teams Gold Wheel Blocker And Polisher Relationship Specialty Start Date End Date Pete Ambriz MD [address] [place] [address] PCP - General Internal Medicine 05/08/24 documented as of this encounter
--- OUTSIDE RECORDS SUMMARY | 2024-10-24 23:42 | External Medical Summary | Summary of Care ---
Author Name Unknown Organization [facility] Address [address] [facility] [place] [address] Phone [phone] Care Team Providers Care Sand Sifter Name Role Phone Pete Ambriz MD Primary Care Provider [phone] Reason for Visit * Reason Comments Cardiac Rehab Encounter Details Date Type Department Care Team (Late st Contact Info) Description 07/02/2024 9:00 AM EDT Telemedicine Cardiac Rehab [facility], Virtual [address] [place] [address] [place] [address] Advanced, Virtual Cardiac Rehab [address] [place] [address] [place] [address] Aortocoronary bypass status* Allergies Active Allergy Reactions [...] management encounter,Aortocoro nary bypass status,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),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 TAKE 1/2 [...] macular edema, left eye 12/28/2020 Atherosclerosis of [place] co ronary artery of [place] heart without angina pectoris 12/19/2019 Persistent [...] Nummular eczema 09/06/2013 07/26/2021 [employer] Other*[id number] 02/03/2012 11/29/2016 Overview: Study Titile: [employer] Markers for Patients with Cardiovascular Disease Project # [id number] PI: Merary Rivera MD Please call [phone] with study related questions Irritable bowel syndrome 05/14/201001/2021 Type 2 diabetes mellitus wit h hemoglobin A1c goal of less than 7.0% 08/06/2009 01/08/2010 Overview: Modified per Diabetes protocol #14. ICD-10 update of inactive term ADVANCE DIRECTIVE INFORMATION 09/27/2007 07/26/2021 Overview: Yes-copy on file Carpal tunnel syndrome 04/14/200404/01 Atherosclerosis of [place] co ronary artery of [place] heart without angina pectoris 04/14/2004 Overview: [...] mRNA, LNP-s, No Pre serve, 2-Dose Series (Leevia) 06/22/2021,05/08/2021 Pneumococcal Conjugate Vacc, 13 Valent (Prevnar) [...] No 05/24/2024 Does the household have a up health systemr source of income? (Household - for ages [...] Hali De La Torre EPC - 07/12/2024 10:42 AM EDT Session Encounter: Patient is participating in [facility] Int[facility] in partnership with [employer] is a specialized [employer] that specializes in providing virtual cardiac rehab services. Session #27 completed. Please refer to scan document for session details. Session type: Education Group Session duration: 60 minutes documented in this encounter Plan of Treatment Upcoming Encounters Date Type Department Care Team (Late st Contact Info) Description 08/13/2024 11:00 AM EDT Anticoagulation Pharmacy, [place] [address] [address] [facility], [place] [address] [facility] [address] [facility], [place] [address] 09/02/2024 10:00 AM EST Office Visit Cardiology, [facility] [place] [address] [place] Momin PA-C [address] [facility] [place] [address] 09/02/2024 10:00 AM EST Cardiac Studies Cardiology, [facility] [place] [address] [facility] [place] [address] 09/23/2024 9:00 AM EST Office Visit Family Practice, [place] [address] [address] [facility] [address] Pete Ambriz MD [address] [facility] [address] 10/01/2024 10:00 AM EST Office Visit Pharmacy, [place] [address] [facility] [address] [facility] [address] [facility] [address] 10/01/2024 10:30 AM EST Anticoagulation Pharmacy, [place] [address] [address] [facility] [address] [facility] [address] [facility] [address] 05/14/2025 10:00 AM EDT Nurse Only Ancillary Department, [place] [address] [place] [address] [place], Nurse Annual Wellness [address] [facility] [place] [address] Scheduled Procedures Name Priority Associated Diagnoses Date/Ti [...] Additional history exists CKD HGB USE SMARTSET 61736 01/28/202501/28, 01/29/2024, 12/27/2023, Additional history exists CKD PHOS USE SMARTSET 48587 01/28/2025 04/0 05/2024, 02/01/2023, 07/29/2022, Additional history [...] D LEVEL ONCE IN A LIFETIME-USE SMARTSET# 64451 Completed 07/03/2024, 08/28/2008, 04/07/2008, Additional history exists [...] 2:56 PM 01/11/2005 3:56 PM Care Teams Sand Sifter Relationship Specialty Start Date End Date Pete Ambriz MD [address] [place] [address] PCP - General Internal Medicine 05/08/24 documented as of this encounter
--- OUTSIDE RECORDS SUMMARY | 2024-10-24 23:42 | External Medical Summary | Summary of Care ---
Author Name Unknown Organization [facility] Address [address] [facility] [place] [address] Phone [phone] Care Team Providers Care Kit Assembler Name Role Phone Pete Ambriz MD Primary Care Provider [phone] Reason for Visit * Reason Comments Cardiac Rehab Encounter Details Date Type Department Care Team (Late st Contact Info) Description 07/03/2024 9:00 AM EDT Telemedicine Cardiac Rehab [facility], Virtual [address] [place] [address] [place] [address] Advanced, Virtual Cardiac Rehab [address] [place] [address] [place] [address] Aortocoronary bypass status* Allergies Active Allergy Reactions [...] goal of 7.0%-8.0% ([facility]) TAKE 2 TABLETS BY MOUTH DAILY WITH MEALS 4 Active Repaglinide 1 MG Oral Tablet (Prandin)Indication s:Type 2 diabetes mellitus with hemoglobin A1c goal of 7.0%-8.0% ([facility]) Take 1 Tablet by mouth [...] macular edema, left eye 12/28/2020 Atherosclerosis of [place] co ronary artery of [place] heart without angina pectoris 12/19/2019 Persistent [...] Nummular eczema 09/06/2013 07/26/2021 [employer] Other*[id number] 02/03/2012 11/29/2016 Overview: Study Titile: [employer] Markers for Patients with Cardiovascular Disease Project # [id number] PI: Merary Rivera MD Please call [phone] with study related questions Irritable bowel syndrome 05/14/201001/2021 Type 2 diabetes mellitus wit h hemoglobin A1c goal of less than 7.0% 08/06/2009 01/08/2010 Overview: Modified per Diabetes protocol #14. ICD-10 update of inactive term ADVANCE DIRECTIVE INFORMATION 09/27/2007 07/26/2021 Overview: Yes-copy on file Carpal tunnel syndrome 04/14/200404/01 Atherosclerosis of [place] co ronary artery of [place] heart without angina pectoris 04/14/2004 Overview: [...] Hali De La Torre EPC - 07/12/2024 10:45 AM EDT Session Encounter: Patient is participating in [facility] Intensive Cardiac Rehab Program in partnership with [employer] is a specialized [employer] that specializes in providing virtual cardiac rehab services. Session #30 completed. Please refer to scan document for session details. Session type: Education Individual Session duration: 60 minutes documented in this encounter Plan of Treatment Upcoming Encounters Date Type Department Care Team (Late st Contact Info) Description 08/13/2024 11:00 AM EDT Anticoagulation Pharmacy, [place] [address] [address] [facility] [address] [facility] [address] [facility] [address] 09/02/2024 10:00 AM EST Office Visit Cardiology, [facility] 132 [facility] [place] [address] [place] Momin PA-C 132 [facility] [place] [address] 09/02/2024 10:00 AM EST Cardiac Studies Cardiology, [facility] 132 [facility] [place] [address] [facility] 132 [facility] [place] [address] 09/23/2024 9:00 AM EST Office Visit [place] [address] [facility] [address] Pete Ambriz MD [address] [facility], [place] [address] 10/01/2024 10:00 AM EST Office Visit Pharmacy, [place] [address] [facility], [place] [address] [facility] [address] [facility], [place] [address] 10/01/2024 10:30 AM EST Anticoagulation Pharmacy, [place] [address] [facility], [place] [address] [facility] [address] [facility], [place] [address] 05/14/2025 10:00 AM EDT Nurse Only Ancillary Department, [place] [address] [address] [facility] [address] [place], Nurse Annual Wellness [address] [facility], [place] [address] Scheduled Procedures Name Priority Associated Diagnoses Date/Ti [...] Additional history exists CKD HGB USE SMARTSET 39412 01/28/202501/28, 01/29/2024, 12/27/2023, Additional history exists CKD PHOS USE SMARTSET 76403 01/28/2025 04/0 05/2024, 02/01/2023, 07/29/2022, Additional history [...] D LEVEL ONCE IN A LIFETIME-USE SMARTSET# 88336 Completed 07/03/2024, 08/28/2008, 04/07/2008, Additional history exists [...] 2:56 PM 01/11/2005 3:56 PM Care Teams Kit Assembler Relationship Specialty Start Date End Date Pete Ambriz MD [address] [place] [address] PCP - General Internal Medicine 05/08/24 documented as of this encounter
--- OUTSIDE RECORDS SUMMARY | 2024-10-24 23:43 | External Medical Summary | Summary of Care ---
Author Name Unknown Organization [facility] Address [address] [facility] [place] [address] Phone [phone] Care Team Providers Care Manager Review Name Role Phone Pete Ambriz MD Primary Care Provider [phone] Reason for Visit * Reason Comments Cardiac Rehab Encounter Details Date Type Department Care Team (Late st Contact Info) Description 06/28/2024 9:00 AM EDT Telemedicine Cardiac Rehab [facility], Virtual [address] [place] [address] [place] [address] Advanced, Virtual Cardiac Rehab [address] [place] [address] [place] [address] Aortocoronary bypass status* Allergies Active Allergy Reactions Criticality Noted Date Comments Cephalexin Unknown 09/12/2002 Lisinopril 12/07/2018 Cough Oxycodone 12/04/2003 nausea, stomach pains Tetanus Toxoid 01/28/2009 Local reaction, fever documented as of this encounter (statuses as of 07/04/2024) Medications Medication Sig Dispensed Refills Start Date [...] Ointment Instill into eye at bedtime. Active Hospital, Clinic, or Other Facility Administered Medication Ordered Dose Route Frequency Start Date End Date Status potassium chloride ER tab 10 mEqIndications:Acute on chronic diastolic congestive heart failure (HCC) 10 mEq OR Daily(AM) 12/24/2019 Activ e documented as of this encounter (statuses as of 07/04/2024) Active Problems Problem Noted Date Diagnosed Date [...] macular edema, left eye 12/28/2020 Atherosclerosis of [place] co ronary artery of [place] heart without angina pectoris 12/19/2019 Persistent atrial [...] as of this encounter (statuses as of 07/04/2024) Resolved Problems Problem Noted Date Diagnosed Date [...] Nummular eczema 09/06/2013 07/26/2021 [employer] Other*[id number] 02/03/2012 11/29/2016 Overview: Study Titile: [employer] Markers for Patients with Cardiovascular Disease Project # [id number] PI: Merary Rivera MD Please call [phone] with study related questions Irritable bowel syndrome 05/14/201001/2021 Type 2 diabetes mellitus wit h hemoglobin A1c goal of less than 7.0% 08/06/2009 01/08/2010 Overview: Modified per Diabetes protocol #14. ICD-10 update of inactive term ADVANCE DIRECTIVE INFORMATION 09/27/2007 07/26/2021 Overview: Yes-copy on file Carpal tunnel syndrome 04/14/200404/01 Atherosclerosis of [place] co ronary artery of [place] heart without angina pectoris 04/14/2004 Overview: Duplicate. [...] breast 01/05/200107/26 DERMATITIS DUE TO PLANT 04/12/2000 0203/2008 Edema 04/12/2000 11/28/2007 Type 2 diabetes mellitus wit h hemoglobin A1c goal of less than 7.0% 11/28/2007 Overview: ICD-10 update of inactive term Hx of CABG 06/04/2020 Overview: Duplicate. Cardiovascular arteriosclerosis 01/30/2019 Odd detrimental health beliefs 07/26/2021 documented as of this encounter (statuses as of 07/04/2024) Immunizations Name Administration Dates Next Due COVID-19 [...] No 05/24/2024 Does the household have a [facility] source of income? (Household - for ages [...] * Hali De La Torre EPC - 07/04/2024 8:59 PM EDT Session Encounter: Patient is participating in [employer] Intensive Cardiac Rehab Program in partnership with [employer] is a specialized company that specializes in providing virtual cardiac rehab services. Session #22 completed. Please refer to scan document for session details. Session type: Education Individual Session duration: 35 minutes documented in this encounter Plan of Treatment Upcoming Encounters Date Type Department Care Team (Late st Contact Info) Description 07/05/2024 10:00 AM EDT Imaging Radiology [facility] [place] [address] 08/13/2024 11:00 AM EDT Anticoagulation Pharmacy, [place] [address] [facility] [place] [address] [place], [facility] [address] [facility] [place], [place] [address] 09/02/2024 10:00 AM EST Office Visit Cardiology, [facility] [place] [address] [place] Momin PA-C [facility] [place] [address] 09/02/2024 10:00 AM EST Cardiac Studies Cardiology, [facility] 132 [facility] [place] [address] [facility] 132 [facility] [place] [address] 09/23/2024 9:00 AM EST Office Visit Family Practice, [place] [address] [address] [facility] [place] [address] Pete Ambriz MD [address] [facility] [place] [address] 10/01/2024 10:00 AM EST Office Visit Pharmacy, [place] [address] [facility] [place] [address] [facility] [address] [facility] [place], [place] [address] 10/01/2024 10:30 AM EST Anticoagulation Pharmacy, [place] [address] [facility] [place] [address] [facility] [address] [facility] [place] [address] 05/14/2025 10:00 AM EDT Nurse Only Ancillary Department, [place] [address] [place] [facility] [address] [place], Nurse Annual Wellness [address] [facility] [place] [address] Scheduled Procedures Name Priority Associated Diagnoses Date/Ti me COLONOSCOPY FLEXIBLE PROXIMA L DIAGNOSTIC Recall History of colonic polyps Health Maintenance Due Date Last Done Comments Colonoscopy 02/07/2022 02/07/2019, 01/21, 03/18/2010 *BISPHONATE OR OTHER ACCEPTABLE MEDICATION NEEDED FOR OSTEOPOROSIS (REFER TO SMARTSET #1146) 12/12/2022 COVID-19 Vaccine ( season) 2024 06/22/2021, 05/08/2021 Influenza Vaccine (FLU shot) (#1) 2024 08/30/2023, 09/23/2022, 10/01/2019, Additional history exists HbA1c 11/24/2024 05/24/2024, 04/0 05/2024, 07/25/2023, Additional history exists GFR 12/31/2024 07/03/2024, 08/11/2023, 12/27/2023, Additional history exists B-12 01/28/2025 01/29/2024, 01/21, 07/29/2022, Additional history exists CKD HGB USE SMARTSET 42138 01/28/202501/28, 01/29/2024, 12/27/2023, Additional history exists CKD PHOS USE SMARTSET 03013 01/28/2025 04/0 05/2024, 02/01/2023, 07/29/2022, Additional history exists Diabetic Foot Exam 04/23/2025 04/23/2024, 1 , 07/26/2021, Additional history exists Adult Wellness Visit 05/08/2025 05/08/2024, 07/14/20 23 Depression Screening 05/08/2025 05/08/2024 Albumin/Creatinine Ratio 05/24/2025 024, 07/25/2023, 02/01/2023, Additional history exists Diabetic Eye Exam 06/03/2025 06/03/2024, , 12/01/2023, Additional history exists DXA Scan 06/04/2026 06/04/2024, 02/20, 03/01/2022, Additional history exists Pneumococcal Vaccine: 65+ Years Completed 05/08/2018, 08/12/2016, 07/20/2005 VITAMIN D LEVEL ONCE IN A LIFETIME-USE SMARTSET# [id number] Completed 07/03/2024, 08/28/2008, 04/07/2008, Additional history exists [...] PM 01/11/2005 3:56 PM Care Teams Manager Review Relationship Specialty Start Date End Date Pete Ambriz MD [address] [facility] [place] [address] PCP - General Internal Medicine 05/08/24 documented as of this encounter
--- OUTSIDE RECORDS SUMMARY | 2024-10-24 23:43 | External Medical Summary | Summary of Care ---
Author Name Unknown Organization [facility] Address [address] [place] [address] Phone [phone] Care Team Providers Care Recycling Tech Name Role Phone Pete Ambriz MD Primary Care Provider Reason for Visit * Reason Comments IV Therapy Reclast * Episode Based Medications (Routine) - Authorized Specialty Diagnoses / Procedures Referred By Contac t Referred To Contact Diagnoses Age-related osteoporosis without current pathological fracture Procedures DC ZOLEDRONIC ACID 1MG Jairo Owen PA-C [address] [place] [address] Anc Hem/Onc [address] [address] Referral ID Status Reason Start Date Expiration Date V isits Requested Visits Authorized [id number] Authorized 06/26/2024 06/26/[phone] Encounter Details Date Type Department Care Team (Latest Contact Info) Description 07/10/2024 1:15 PM EDT Hem/Onc Treatment Hematology/Oncology Treatment, [address] [place] [address] Mild[place], Chair 2 Hem Onc [address] [place] [id number] Age-related osteoporosis without current pathological fracture* Allergies Active Allergy Reactions Criticality Noted Date Comments Cephalexin Unknown 09/12/2002 Lisinopril 12/07/2018 Cough Oxycodone 12/04/2003 nausea, stomach pains Tetanus Toxoid 01/28/2009 Local reaction, fever documented as of this encounter (statuses as of 07/10/2024) Medications Medication Sig Dispensed Refills Start Date [...] on management encounter,Aortocoro nary bypass status,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),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 TAKE 1/2 [...] as of this encounter (statuses as of 07/10/2024) Active Problems Problem Noted Date Diagnosed Date [...] macular edema, left eye 12/28/2020 Atherosclerosis of [place] co ronary artery of jackson heart without angina pectoris 12/19/2019 Persistent atrial fibrillation 11/28/2019 HTN, goal below 130/80 04/26/2019 Type 2 diabetes mellitus with diabetic neuropath y 02/11/2019 Chronic diarrhea 05/14/2010 Type 2 diabetes mellitus wit h hemoglobin A1c goal of 7.0%-8.0% 01/08/2010 Overview: ICD-10 update of inactive term DYSLIPIDEMIA, GOAL LDL BELOW 70 10/12/2009 Overview: Per Lipid Taxonomy. 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 Pulmonary hypertension DISH (diffuse idiopathic skeletal hyperostosis) documented as of this encounter (statuses as of 07/10/2024) Resolved Problems Problem Noted Date Diagnosed Date [...] Nummular eczema 09/06/2013 07/26/2021 [employer] Other*[id number] 02/03/2012 11/29/2016 Overview: Study Titile: [employer] Markers for Patients with Cardiovascular Disease Project # [id number] PI: Merary Rivera MD Please call [phone] with study related questions Irritable bowel syndrome 05/14/201001/2021 Type 2 diabetes mellitus wit h hemoglobin A1c goal of less than 7.0% 08/06/2009 01/08/2010 Overview: Modified per Diabetes protocol #14. ICD-10 update of inactive term ADVANCE DIRECTIVE INFORMATION 09/27/2007 07/26/2021 Overview: Yes-copy on file Carpal tunnel syndrome 04/14/200404/01 Atherosclerosis of [place] co ronary artery of jack[place] heart without angina pectoris 04/14/2004 Overview: Duplicate. [...] as of this encounter (statuses as of 07/10/2024) Immunizations Name Administration Dates Next Due COVID-19 [...] Description 08/13/2024 11:00 AM EDT Anticoagulation Pharmacy, [place] [address] [facility], [place] [address] [facility] [address] [facility], [place] [address] 09/02/2024 10:00 AM EST Office Visit Cardiology, [facility] [address] Dayton Momin PA-C 132 [place] [address] 09/02/2024 10:00 AM EST Cardiac Studies Cardiology, [facility] 132 [place] [address] Ifrah Barberr [facility] 132 [place] [address] 09/23/2024 9:00 AM EST Office Visit Family [facility], [place] [address] [address] [facility] [address] Pete Ambriz [facility] [address] [facility] [address] 10/01/2024 10:00 AM EST Office [facility] Pharmacy, [place] [address] [facility] [address] [facility] [address] [facility] [address] 10/01/2024 10:30 AM EST Anticoagulation Pharmacy, [place] [address] [facility] [address] [place], [facility] [address] [facility] [address] 05/14/2025 10:00 AM EDT Nurse Only Ancillary Department, [place] [address] [facility] [place] [phone] [place], Nurse Annual Wellness [address] [facility] [address] Scheduled Procedures Name Priority Associated Diagnoses Date/Ti [...] Additional history exists CKD HGB USE SMARTSET 28929 01/28/202501/28, 01/29/2024, 12/27/2023, Additional history exists CKD PHOS USE SMARTSET 55528 01/28/2025 040 05/2024, 02/01/2023, 07/29/2022, Additional history [...] D LEVEL ONCE IN A LIFETIME-USE SMARTSET# 28560 Completed 07/03/2024, 08/28/2008, 04/07/2008, Additional history exists [...] osteoporosis documented in this encounter Administered Medications Active Administered Medications - up to 3 most recent administrations Medication Order MAR Action Action Date Dose Rate Site diphenhydrAMINE (Benadryl) inj 50 mg 50 mg, IV Push, ONCE PRN Other, Hypersensitivity Reaction, Starting on Mon07/10/24 at 1310, Until Lilia 07/11/24 at 1309, For 24 hours EPINEPHrine 1 MG/ML inj 0.3 mg 0.3 mg, Intramuscular, ONCE PRN Other, Hypersensitivity Reaction or Anaphylaxis, Starting on Mon07/10/24 at 1310, Until Lilia 07/11/24 at 1309, For 24 hours hEParin 100 UNIT/ML Lock Flush inj 500 Units 500 Units (5 mL), IV Lock, PRN Other, IV Flush, Starting on Mon07/10/24 at 1310, Until Lilia 07/11/24 at 1309, For 24 hours, Do not flush if lock, PICC, or central line not in place; IV infusing or unable to flush. Hydrocortisone Sod Suc (PF) (Solu-Cortef) inj 100 mg 100 mg, IV Push, ONCE PRN Other, Hypersensitivity Reaction, Starting on Mon07/10/24 at 1310, Until Lilia 07/11/24 at 1309, For 24 hours NSS infusion Intravenous, at 50 mL/hr, PRN, Starting on Mon07/10/24 at 1415, Until Discontinued, Maintenance line Start Infusion 07/10/2024 1:12 PM EDT 50 mL/hr oxygen GAS Inhalation, OXYGEN, First dose on Mon07/10/24 at 1600, Until Discontinued, Device/Managed by: Low Flow Device, Goal SPO2 (%): 91-95, Starting Device: Nasal Cannula, Initial Flow Rate (LPM): 2, Lowest Support: Nasal Cannula: Flow 0-6 LPM. Titrate up/down by 1 LPM., Higher Support: Non-Rebreather (NRB) Mask: Minimum of 10 LPM. Titrate to maintain bag inflation., Titration Interval: Q2 minutes and as needed., Notify Provider: For sudden DECREASE in resting SPO2 to less than 85% and when escalating delivery device., Wean patient off Oxygen when the oxygen saturation is greater than or equal to 93% sodium chloride 0.9 % flush central line 10 mL 10 mL, IV Push, PRN Other, IV Flush, Starting on Mon07/10/24 at 1310, Until Lilia 07/11/24 at 1309, For 24 hours, Do not flush if lock, PICC, or central line not in place; IV infusing or unable to flush. Inactive Administered Medications - up to 3 most recent administrations Medication Order MAR Action Action Date Dose Rate Site Zoledronic Acid (Reclast) 5 mg in 100 [...] 2:56 PM 01/11/2005 3:56 PM Care Teams Recycling Tech Relationship Specialty Start Date End Date Pete Ambriz MD [address] [place] [id number] PCP - General Internal Medicine 05/08/24 documented as of this encounter
--- OUTSIDE RECORDS SUMMARY | 2024-10-24 23:43 | External Medical Summary | Summary of Care ---
Author Name Unknown Organization [facility] Address [address] [place] [address] Phone [phone] Care Team Providers Care Extractor Operator Solvent Process Name Role Phone Pete Ambriz MD Primary Care Provider [phone] Encounter Details Date Type Department Care Team (Late st Contact Info) Description 07/09/2024 Telephone [facility] [address] [place] [address] Pete Ambriz MD [address] [place] [address] Allergies Active Allergy Reactions Criticality Noted Date Comments Cephalexin Unknown 09/12/2002 Lisinopril 12/07/2018 Cough Oxycodone 12/04/2003 nausea, stomach pains Tetanus Toxoid 01/28/2009 Local reaction, fever documented as of this encounter (statuses as of 07/09/2024) Medications Medication Sig Dispensed Refills Start Date [...] management encounter,Aortocoro nary bypass status,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),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 18 g 4 Active Benzonatate 100 MG Oral Capsule [...] as of this encounter (statuses as of 07/09/2024) Active Problems Problem Noted Date Diagnosed Date [...] as of this encounter (statuses as of 07/09/2024) Resolved Problems Problem Noted Date Diagnosed Date [...] Nummular eczema 09/06/2013 07/26/2021 [employer] Other*[id number] 02/03/2012 11/29/2016 Overview: Study Titile: [employer] Markers for Patients with Cardiovascular Disease Project # [id number] PI: Merary Rivera MD Please call [phone] with study related questions Irritable bowel syndrome [...] as of this encounter (statuses as of 07/09/2024) Immunizations Name Administration Dates Next Due COVID-19 [...] encounter Miscellaneous Notes * Telephone Encounter - Laurie Lynn LPN - 07/09/2024 7:01 PM EDT ----- Message from Dayton Do MD sent at 07/06/2024 8:35 AM EDT ----- Good news: chest xray does not show pneumonia or heart failure. documented in this encounter Plan of Treatment Upcoming Encounters Date Type Department Care Team (Late st Contact Info) Description 07/10/2024 1:15 PM EDT Hem/Onc Treatment Hematology/Oncology Treatment, [place] [address] [place] [address] Mildred, Chair 2 Hem Onc [place] [address] [place] [address] 08/13/2024 11:00 AM EDT Anticoagulation Pharmacy, [place] [address] [place] [address] [place] [address] [place] [address] 09/02/2024 10:00 AM EST Office Visit Cardiology, [facility] 132 [facility] [place] [address] Dayton Momin PA-C [address] [facility] [place] [address] 09/02/2024 10:00 AM EST Cardiac Studies Cardiology, [facility] 132 [facility] [place] [address] Ifrah [facility] 132 [facility] [place] [address] 09/23/2024 9:00 AM EST Office Visit Family Practice, [place] [address] [place] [facility] [place] [address] Pete Ambriz MD [address] [place] [facility] [place] [address] 10/01/2024 10:00 AM EST Office Visit Pharmacy, [place] [address] [place] [facility] [address] [facility] [address] [place] [facility] [place] [address] 10/01/2024 10:30 AM EST Anticoagulation Pharmacy, [place] [address] [place] [facility] [address] [facility] [address] [place] [facility] [place] [address] 05/14/2025 10:00 AM EDT Nurse Only Ancillary Department, [place] [address] [place] [facility] [place] [address] [place], Nurse Annual Wellness [address] [place] [facility] [place] [address] Scheduled Procedures Name Priority Associated Diagnoses Date/Ti [...] Additional history exists CKD HGB USE SMARTSET 15519 01/28/202501/28, 01/29/2024, 12/27/2023, Additional history exists CKD PHOS USE SMARTSET 45663 01/28/2025 04/0 05/2024, 02/01/2023, 07/29/2022, Additional history [...] D LEVEL ONCE IN A LIFETIME-USE SMARTSET# 25146 Completed 07/03/2024, 08/28/2008, 04/07/2008, Additional history exists [...] 2:56 PM 01/11/2005 3:56 PM Care Teams Extractor Operator Solvent Process Relationship Specialty Start Date End Date Pete Ambriz MD [address] [place] [id number] PCP - General Internal Medicine 05/08/24 documented as of this encounter
--- OUTSIDE RECORDS SUMMARY | 2024-10-24 23:43 | External Medical Summary | Summary of Care ---
Author Name Unknown Organization [facility] Address [address] [facility] [address] Phone [phone] Care Team Providers Care Hand Glass Cutter Name Role Phone Pete Ambriz MD Primary Care Provider [phone] Reason for Visit * Reason Onset Date Comments Medication Pre-auth 06/26/2024 Reclast Encounter Details Date Type Department Care Team (Late st Contact Info) Description 06/26/2024 Telephone Hematology/Oncology Treatment, [place] [address] [place] [address] Jairo Owen PA-C [facility] [place] [address] Medication Pre-auth (Reclast) Allergies Active Allergy Reactions Criticality Noted Date Comments Cephalexin Unknown 09/12/2002 Lisinopril 12/07/2018 Cough Oxycodone 12/04/2003 nausea, stomach pains Tetanus Toxoid 01/28/2009 Local reaction, fever documented as of this encounter (statuses as of 07/05/2024) Medications Medication Sig Dispensed Refills Start Date [...] tion management encounter,Aortoco ronary bypass status,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 04/09/20 24 024 Discontinued Hospital, Clinic, or Other Facility Administered Medication Ordered Dose Route Frequency Start Date End Date Status potassium chloride ER tab 10 mEqIndications:Acute on chronic diastolic congestive heart failure (HCC) 10 mEq OR Daily(AM) 12/24/2019 Activ e documented as of this encounter (statuses as of 07/05/2024) Active Problems Problem Noted Date Diagnosed Date [...] macular edema, left eye 12/28/2020 Atherosclerosis of [place] co ronary artery of [place] heart without angina pectoris 12/19/2019 Persistent atrial [...] as of this encounter (statuses as of 07/05/2024) Resolved Problems Problem Noted Date Diagnosed Date [...] Nummular eczema 09/06/2013 07/26/2021 [employer] Other*[id number] 02/03/2012 11/29/2016 Overview: Study Titile: [employer] Markers for Patients with Cardiovascular Disease Project # [id number] PI: Merary Rivera MD Please call [phone] with study related questions Irritable bowel syndrome 05/14/201001/2021 Type 2 diabetes mellitus wit h hemoglobin A1c goal of less than 7.0% 08/06/2009 01/08/2010 Overview: Modified per Diabetes protocol #14. ICD-10 update of inactive term ADVANCE DIRECTIVE INFORMATION 09/27/2007 07/26/2021 Overview: Yes-copy on file Carpal tunnel syndrome 04/14/200404/01 Atherosclerosis of [place] co ronary artery of [place] heart without angina pectoris 04/14/2004 Overview: Duplicate. [...] as of this encounter (statuses as of 07/05/2024) Immunizations Name Administration Dates Next Due COVID-19 [...] encounter Miscellaneous Notes * Telephone Encounter - Emir Calle OSA - 07/05/2024 8:29 AM EDT Patient has been scheduled and is aware * Telephone Encounter - Stephanie Mejia RN - 07/05/2024 7:43 AM EDT Scheduling: please call patient to schedule 2 hour appt "Reclast" (Jairo Owen). Thanks! * Telephone Encounter - Stephanie Mejia RN - 07/04/2024 7:32 AM EDT Labs in process. * Telephone Encounter - Mercedes Beck LPN - 06/27/2024 12:36 PM EDT Awaiting labs * Telephone Encounter - Mercedes Beck LPN - 06/27/2024 12:35 PM EDT PFC review completed 06/27/2024 10:24 AM Alejandrina Beebe, BERNARD reconfigured estimate - Note: Medication did not pull cost and reconfigured estimate. Pt should expect OOP of $29.74 for her Reclast. * Telephone Encounter - Stephanie Mejia RN - 06/26/2024 2:06 PM EDT Referral entered, beacon is signed. Waiting for PFC/ labs * Telephone Encounter - Mercedes Beck LPN - 06/26/2024 12:04 PM EDT Order received for Reclast Commodore plan built and routed to provider Awaiting provider signature, prior authorization, and completed lab results before scheduling patient. documented in this encounter Plan of Treatment Upcoming Encounters Date Type Department Care Team (Late st Contact Info) Description 07/05/2024 10:00 AM EDT [facility] [address] [facility] [place] [address] 07/10/2024 1:15 PM EDT Hem/Onc Treatment Hematology/Oncology Treatment, [place] [address] [place], [place] [phone] Mild[place], Chair 2 Hem Onc [place] [address] [place] [address] 08/13/2024 11:00 AM EDT [facility]ticoagulation Pharmacy, [place] [address] [facility] [address] [facility] [address] [place] [address] 09/02/2024 10:00 AM EST Office Visit Cardiology, [facility] 132 [facility] [place] [address] [place] Momin PA-C [facility] [place] [address] 09/02/2024 10:00 AM EST Cardiac Studies Cardiology, [facility] 132 [facility] [place] [address] [facility] [address] 09/23/2024 9:00 AM EST Office Visit Family [facility], [place] [address] [facility] [address] Pete Ambriz MD [address] [facility] [address] 10/01/2024 10:00 AM EST Office Visit Pharmacy, [place] [address] [facility], [place] [address] [facility] [address] [place] [facility] [place] [address] 10/01/2024 10:30 AM EST Anticoagulation Pharmacy, [place] [address] [facility], [place] [address] [facility] [address] [facility], [place] [address] 05/14/2025 10:00 AM EDT Nurse Only Ancillary Department, [place] [address] [place] [address] [place], Nurse Annual Wellness [address] [place] [address] Scheduled Procedures Name Priority Associated Diagnoses Date/Ti [...] 10/01/2019, Additional history exists HbA1c 11/24/2024 05/24/2024, 05/2024, 07/25/2023, Additional history exists GFR 12/31/2024 07/03/2024, 11/2023, 12/27/2023, Additional history exists B-12 01/28/2025 01/29/2024, 01/21, 07/29/2022, Additional history exists CKD HGB USE SMARTSET 94968 01/28/202501/28, 01/29/2024, 12/27/2023, Additional history exists CKD PHOS USE SMARTSET 54712 01/28/2025 04/0 05/2024, 02/01/2023, 07/29/2022, Additional history [...] D LEVEL ONCE IN A LIFETIME-USE SMARTSET# 54744 Completed 07/03/2024, 08/28/2008, 04/07/2008, Additional history exists [...] 2:56 PM 01/11/2005 3:56 PM Care Teams Hand Glass Cutter Relationship Specialty Start Date End Date Pete Ambriz MD [address] [place] [address] PCP - General Internal Medicine 05/08/24 documented as of this encounter
--- OUTSIDE RECORDS SUMMARY | 2024-10-24 23:43 | External Medical Summary | Summary of Care ---
Author Name Unknown Organization [facility] Address [address] [facility] [place] [address] Phone [phone] Care Team Providers Care Needle Straightener Name Role Phone Pete Ambriz MD Primary Care Provider Reason for Visit * Reason Comments Cardiac Rehab Encounter Details Date Type Department Care Team (Late st Contact Info) Description 06/28/2024 10:00 AM EDT Telemedicine Cardiac Rehab Advanced, Virtual [address] [place] [address] [place] [address] Advanced, Virtual Cardiac Rehab [address] [place] [address] [place] [address] Aortocoronary bypass status* Allergies Active Allergy Reactions [...] on management encounter,Aortocoro nary bypass status,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),correction current use of anticoagulant therapy TAKE 1/2 [...] macular edema, left eye 12/28/2020 Atherosclerosis of [place] co ronary artery of [place] heart without angina pectoris 12/19/2019 Persistent atrial fibrillation 11/28/2019 HTN, goal below 130/80 04/26/2019 Type 2 diabetes mellitus with diabetic neuropath y 02/11/2019 Chronic diarrhea 05/14/2010 Type 2 diabetes mellitus wit h hemoglobin A1c goal of 7.0%-8.0% 01/08/2010 Overview: ICD-10 update of inactive term DYSLIPIDEMIA, GOAL LDL BELOW 70 10/12/2009 Overview: Per Lipid Taxonomy. Vitamin D deficiency 12/12/2007 correction current use of anticoagulant therapy 0 05/27/2005 [...] Nummular eczema 09/06/2013 07/26/2021 [employer] Other*[id number] 02/03/2012 11/29/2016 Overview: Study Titile: [employer] Markers for Patients with Cardiovascular Disease Project # [id number] PI: Merary Rivera MD Please call [phone] with study related questions Irritable bowel syndrome 05/14/201001/2021 Type 2 diabetes mellitus wit h hemoglobin A1c goal of less than 7.0% 08/06/2009 01/08/2010 Overview: Modified per Diabetes protocol #14. ICD-10 update of inactive term ADVANCE DIRECTIVE INFORMATION 09/27/2007 07/26/2021 Overview: Yes-copy on file Carpal tunnel syndrome 04/14/200404/01 Atherosclerosis of [place] co ronary artery of [place] heart without angina pectoris 04/14/2004 Overview: Duplicate. [...] No 05/24/2024 Does the household have a [facility] source of income? (Household - for ages [...] Hali De La Torre EPC - 07/04/2024 9:00 PM EDT Session Encounter: Patient is participating in [employer]'s Intensive Cardiac Rehab Program in partnership with [employer] is a specialized company that specializes in providing virtual cardiac rehab services. Session #23 completed. Please refer to scan document for session details. Session type: Education Group Session duration: 60 minutes documented in this encounter Plan of Treatment Upcoming Encounters Date Type Department Care Team (Late st Contact Info) Description 07/05/2024 10:00 AM EDT Imaging Radiology [facility] 1st [facility] [place] [address] 08/13/2024 11:00 AM EDT Anticoagulation Pharmacy, [place] [address] [facility] [facility], [place] [address] [place], [facility] [address] [facility], [place] [address] 09/02/2024 10:00 AM EST Office Visit Cardiology, [facility] [place] [address] [place] Momin PA-C [facility] [place] [address] 09/02/2024 10:00 AM EST Cardiac Studies Cardiology, [facility] 132 [facility] [place] [address] [facility] 132 [facility] [place] [address] 09/23/2024 9:00 AM EST Office Visit Family Practice, [place] [address] [address] [facility] [address] Pete Ambriz [facility] [address] [facility] [address] 10/01/2024 10:00 AM EST Office Visit Pharmacy, [place] [address] [facility] [address] [facility] [address] [facility], [place] [address] 10/01/2024 10:30 AM EST Anticoagulation Pharmacy, [place] [address] [facility] [address] [facility] [address] [facility] [address] 05/14/2025 10:00 AM EDT Nurse Only Ancillary Department, [place] [address] [address] [place], Nurse [facility] [address] [facility] [place] [address] Scheduled Procedures Name Priority Associated Diagnoses Date/Ti [...] Additional history exists CKD HGB USE SMARTSET 99179 01/28/202501/28, 01/29/2024, 12/27/2023, Additional history exists CKD PHOS USE SMARTSET 76231 01/28/2025 04/0 05/2024, 02/01/2023, 07/29/2022, Additional history [...] D LEVEL ONCE IN A LIFETIME-USE SMARTSET# 73833 Completed 07/03/2024, 08/28/2008, 04/07/2008, Additional history exists [...] 2:56 PM 01/11/2005 3:56 PM Care Teams Needle Straightener Relationship Specialty Start Date End Date Pete Ambriz MD [address] [place] [address] PCP - General Internal Medicine 05/08/24 documented as of this encounter
--- OUTSIDE RECORDS SUMMARY | 2024-10-24 23:43 | External Medical Summary | Summary of Care ---
Author Name Unknown Organization [facility] Address [address] [facility] [address] Phone [phone] Care Team Providers Care Audit Associate Name Role Phone Pete Ambriz MD Primary Care Provider [phone] Reason for Visit * Reason Onset Date Comments Medication Pre-auth 06/26/2024 Reclast Encounter Details Date Type Department Care Team (Late st Contact Info) Description 06/26/2024 Telephone Hematology/Oncology Treatment, [place] [address] [place] [address] Jairo Owen PA-C [facility] [employer] [place] [address] Medication Pre-auth (Reclast) Allergies Active Allergy [...] tion management encounter,Aortoco ronary bypass status,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),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 TAKE [...] macular edema, left eye 12/28/2020 Atherosclerosis of [place] co ronary artery of [place] heart without angina pectoris 12/19/2019 Persistent atrial [...] Nummular eczema 09/06/2013 07/26/2021 [employer] Other*[id number] 02/03/2012 11/29/2016 Overview: Study Titile: [employer] Markers for Patients with Cardiovascular Disease Project # [id number] PI: Merary Rivera MD Please call [phone] with study related questions Irritable bowel syndrome 05/14/201001/2021 Type 2 diabetes mellitus wit h hemoglobin A1c goal of less than 7.0% 08/06/2009 01/08/2010 Overview: Modified per Diabetes protocol #14. ICD-10 update of inactive term ADVANCE DIRECTIVE INFORMATION 09/27/2007 07/26/2021 Overview: Yes-copy on file Carpal tunnel syndrome 04/14/200404/01 Atherosclerosis of [place] co ronary artery of [place] heart without angina pectoris 04/14/2004 Overview: Duplicate. [...] encounter Miscellaneous Notes * Telephone Encounter - Stephanie Mejia RN - 07/05/2024 7:43 AM EDT Scheduling: please call patient to schedule 2 hour appt "Recgiorgit" (Jairo Owen). Thanks! * Telephone Encounter - [...] 12:04 PM EDT Order received for Reclast Reagan plan built and routed to provider Awaiting provider signature, prior authorization, and completed lab results before scheduling patient. documented in this encounter Plan of Treatment Upcoming Encounters Date Type Department Care Team (Late st Contact Info) Description 07/05/2024 10:00 AM EDT Imaging Radiology [address], [address] [place] [address] 08/13/2024 11:00 AM EDT Anticoagulation Pharmacy, [place] [address] [place] [address] [place], [facility] [address] [place] [address] 09/02/2024 10:00 AM EST Office Visit Cardiology, [facility] 132 [facility] [address] [place] Momin PA-C 132 [facility] [place] [address] 09/02/2024 10:00 AM EST Cardiac Studies Cardiology, [facility] 132 [facility] [address] [facility] 132 [facility] [address] 09/23/2024 9:00 AM EST Office Visit Family Practice, [place] [address] [facility], [place] [address] Pete Ambriz MD [address] [place] [address] 10/01/2024 10:00 AM EST Office Visit Pharmacy, [place] [address] [place] [address] [place], [facility] [address] [place] [address] 10/01/2024 10:30 AM EST Anticoagulation Pharmacy, [place] [address] [place] [address] [place], [facility] [address] [facility], [place] [address] 05/14/2025 10:00 AM EDT Nurse Only Ancillary Department, [place] [address] [place] [address] [place], Nurse Annual [facility] [address] [place] [address] Scheduled Procedures Name Priority Associated Diagnoses Date/Ti [...] Additional history exists CKD HGB USE SMARTSET 93020 01/28/202501/28, 01/29/2024, 12/27/2023, Additional history exists CKD PHOS USE SMARTSET 86312 01/28/2025 04/0 05/2024, 02/01/2023, 07/29/2022, Additional history [...] D LEVEL ONCE IN A LIFETIME-USE SMARTSET# [id number] Completed 07/03/2024, 08/28/2008, 04/07/2008, Additional history exists [...] 2:56 PM 01/11/2005 3:56 PM Care Teams Audit Associate Relationship Specialty Start Date End Date Pete Ambriz MD [address] [place] [address] PCP - General Internal Medicine 05/08/24 documented as of this encounter
--- OUTSIDE RECORDS SUMMARY | 2024-10-24 23:43 | External Medical Summary | Summary of Care ---
Author Name Unknown Organization [facility] Address [address] [facility] [place] [address] Phone [phone] Care Team Providers Care Electrophysiology Scientist Name Role Phone Pete Ambriz MD Primary Care Provider [phone] Reason for Visit * Reason Comments Cardiac Rehab Encounter Details Date Type Department Care Team (Late st Contact Info) Description 07/01/2024 10:00 AM EDT Telemedicine Cardiac Rehab Advanced, Virtual [address] [place] [address] [place] [address] Advanced, Virtual Cardiac Rehab [address] [place] [address] [place] [address] Aortocoronary bypass status* Allergies Active Allergy Reactions [...] on management encounter,Aortocoro nary bypass status,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),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 ICD-10 update of inactive term ADVANCE DIRECTIVE INFORMATION 09/27/2007 07/26/2021 Overview: Yes-copy on file Carpal tunnel syndrome 04/14/200404/01 Atherosclerosis of [place] co ronary artery of [place] heart without angina pectoris 04/14/2004 Overview: Duplicate. [...] No 05/24/2024 Does the household have a [facility] source of income? (Household - [...] Hali De La Torre EPC - 07/12/2024 10:41 AM EDT Session Encounter: Patient is participating in [employer]'s Intensive Cardiac Rehab Program in partnership with [employer] is a specialized [employer] that specializes in providing virtual cardiac rehab services. Session #26 completed. Please refer to scan document for session details. Session type: Education Group Session duration: 60 minutes * Hali De La Torre EPC - 07/12/2024 10:41 AM EDT Session Encounter: Patient is participating in [facility]'s Intensive Cardiac Rehab Program in partnership with [employer] is a specialized company that specializes in providing virtual cardiac rehab services. Session #25 completed. Please refer to scan document for session details. Session type: Education Group Session duration: 60 minutes documented in this encounter Plan of Treatment Upcoming Encounters Date Type Department Care Team (Late st Contact Info) Description 08/13/2024 11:00 AM EDT Anticoagulation Pharmacy, [place] [address] [address] [facility] [address] [place], [facility] [address] [facility] [address] 09/02/2024 10:00 AM EST Office Visit Cardiology, [facility] [place] [address] [place] Momin PA-C [facility] [place] [address] 09/02/2024 10:00 AM EST Cardiac Studies Cardiology, [facility] 132 [facility] [place] [address] [facility] 132 [employer] [place] [address] 09/23/2024 9:00 AM EST Office Visit Family [facility], [place] [address] [facility] [phone] Pete Ambriz MD [address] [facility] [address] 10/01/2024 10:00 AM EST Office Visit Pharmacy, [place] [address] [facility] [address] [facility] [address] [place] [facility] [address] 10/01/2024 10:30 AM EST Anticoagulation Pharmacy, [place] [address] [place] [facility] [place] [address] [facility] [address] [place] [facility] [address] 05/14/2025 10:00 AM EDT Nurse Only Ancillary Department, [place] [address] [place] [facility] [address] [place], Nurse Annual Wellness [address] [place] [address] Scheduled Procedures Name Priority Associated Diagnoses Date/Ti [...] Additional history exists CKD HGB USE SMARTSET 94353 01/28/202501/28, 01/29/2024, 12/27/2023, Additional history exists CKD PHOS USE SMARTSET 81561 01/28/20250 05/2024, 02/01/2023, 07/29/2022, Additional history exists [...] D LEVEL ONCE IN A LIFETIME-USE SMARTSET# 24886 Completed 07/03/2024, 08/28/2008, 04/07/2008, Additional history exists [...] 2:56 PM 01/11/2005 3:56 PM Care Teams Electrophysiology Scientist Relationship Specialty Start Date End Date Pete Ambriz MD [address] [place] [address] PCP - General Internal Medicine 05/08/24 documented as of this encounter
--- OUTSIDE RECORDS SUMMARY | 2024-10-24 23:43 | External Medical Summary | Summary of Care ---
Author Name Unknown Organization [facility] Address [address] [facility] [place] [address] Phone [phone] Care Team Providers Care Flash Ranging Crewmember Name Role Phone Pete Ambriz MD Primary Care Provider [phone] Reason for Visit * Reason Comments Cardiac Rehab Encounter Details Date Type Department Care Team (Late st Contact Info) Description 06/26/2024 9:00 AM EDT Telemedicine Cardiac Rehab Advanced, Virtual [address] [place] [address] [place] [address] Advanced, Virtual Cardiac Rehab [address] [place] [address] [place] [address] Aortocoronary bypass status* Allergies Active Allergy Reactions [...] on management encounter,Aortocoro nary bypass status,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),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 TAKE 1/2 [...] macular edema, left eye 12/28/2020 Atherosclerosis of [place] co ronary artery of [place] heart without angina pectoris 12/19/2019 Persistent atrial [...] Nummular eczema 09/06/2013 07/26/2021 [employer] Other*[id number] 02/03/2012 11/29/2016 Overview: Study Titile: [employer] Markers for Patients with Cardiovascular Disease Project # [id number] PI: Merary Rivera MD Please call [phone] with study related questions Irritable bowel syndrome 05/14/201001/2021 Type 2 diabetes mellitus wit h hemoglobin A1c goal of less than 7.0% 08/06/2009 01/08/2010 Overview: Modified per Diabetes protocol #14. ICD-10 update of inactive term ADVANCE DIRECTIVE INFORMATION 09/27/2007 07/26/2021 Overview: Yes-copy on file Carpal tunnel syndrome 04/14/200404/01 Atherosclerosis of [place] co ronary artery of [place] heart without angina pectoris 04/14/2004 Overview: Duplicate. [...] No 05/24/2024 Does the household have a [facility] source of income? (Household - for [...] Hali De La Torre EPC - 07/04/2024 8:56 PM EDT Session Encounter: Patient is participating in [employer]'s Intensive Cardiac Rehab Program in partnership with [employer] is a specialized company that specializes in providing virtual cardiac rehab services. Session #20 completed. Please refer to scan document for session details. Session type: Exercise Individual Session duration: 35 minutes documented in this encounter Plan of Treatment Upcoming Encounters Date Type Department Care Team (Late st Contact Info) Description 07/05/2024 10:00 AM EDT Imaging Radiology [facility] 1st [facility] [place] [address] 08/13/2024 11:00 AM EDT Anticoagulation Pharmacy, [place] [address] [facility] [place] [address] [place], [facility] [address] [facility], [place] [address] 09/02/2024 10:00 AM EST Office Visit Cardiology, [facility] [place] [address] [place] Momin PA-C [facility] [place] [address] 09/02/2024 10:00 AM EST Cardiac Studies Cardiology, [facility] 132 [facility] [place] [address] [facility] 132 [facility] [place] [address] 09/23/2024 9:00 AM EST Office Visit Family Practice, [place] [address] [address] [facility] [address] Pete Ambriz MD [address] [facility] [address] 10/01/2024 10:00 AM EST Office Visit Pharmacy, [place] [address] [facility] [address] [facility] [address] [facility], [place] [address] 10/01/2024 10:30 AM EST Anticoagulation Pharmacy, [place] [address] [facility] [address] [facility] [address] [facility] [address] 05/14/2025 10:00 AM EDT Nurse Only Ancillary Department, [place] [address] [place] [address] [place], Nurse Annual Wellness [address] [facility] [place] [address] Scheduled Procedures Name Priority Associated Diagnoses Date/Ti [...] Additional history exists CKD HGB USE SMARTSET 75586 01/28/202501/28, 01/29/2024, 12/27/2023, Additional history exists CKD PHOS USE SMARTSET 33122 01/28/2025 04/0 05/2024, 02/01/2023, 07/29/2022, Additional history [...] D LEVEL ONCE IN A LIFETIME-USE SMARTSET# 92763 Completed 07/03/2024, 08/28/2008, 04/07/2008, Additional history exists [...] 2:56 PM 01/11/2005 3:56 PM Care Teams Flash Ranging Crewmember Relationship Specialty Start Date End Date Pete Ambriz MD [address] [place] [facility] [address] PCP - General Internal Medicine 05/08/24 documented as of this encounter
--- OUTSIDE RECORDS SUMMARY | 2024-10-24 23:43 | External Medical Summary | Summary of Care ---
Author Name Unknown Organization [facility] Address [address] [facility] [place] [address] Phone [phone] Care Team Providers Care Rail Maintenance Worker Name Role Phone Pete Ambriz MD Primary Care Provider [phone] Reason for Visit * Reason Comments Cardiac Rehab Encounter Details Date Type Department Care Team (Late st Contact Info) Description 06/27/2024 9:00 AM EDT Telemedicine Cardiac Rehab Advanced, Virtual [address] [place] [address] [place] [address] Advanced, Virtual Cardiac Rehab [address] [place] [address] [place] [address] Aortocoronary bypass status* Allergies Active Allergy Reactions [...] on management encounter,Aortocoro nary bypass status,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),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 Vitamin D deficiency 12/12/2007 shelter current use of anticoagulant therapy 0 05/27/2005 [...] Nummular eczema 09/06/2013 07/26/2021 [employer] Other*[id number] 02/03/2012 11/29/2016 Overview: Study Titile: [employer] Markers for Patients with Cardiovascular Disease Project # [id number] PI: Merary Rivera MD Please call [phone] with study related questions Irritable bowel syndrome [...] No 05/24/2024 Does the household have a [facility] source of income? (Household - for [...] Hali De La Torre EPC - 07/04/2024 8:57 PM EDT Session Encounter: Patient is participating in [employer]'s Intensive Cardiac Rehab Program in partnership with [employer] is a specialized company that specializes in providing virtual cardiac rehab services. Session #21 completed. Please refer to scan document for session details. Session type: Education Group Session duration: 60 minutes documented in this encounter Plan of Treatment Upcoming Encounters Date Type Department Care Team (Late st Contact Info) Description 07/05/2024 10:00 AM EDT Imaging Radiology [facility] 1st [facility] [place] [address] 08/13/2024 11:00 AM EDT Anticoagulation Pharmacy, [place] [address] [facility] [place] [address] [place], [facility] [address] [facility], [place] [address] 09/02/2024 10:00 AM EST Office Visit Cardiology, [facility] [place] [address] [place] Momin PA-C [facility] [place] [address] 09/02/2024 10:00 AM EST Cardiac Studies Cardiology, [facility] 132 [facility] [place] [address] [facility] 132 [facility] [place] [address] 09/23/2024 9:00 AM EST Office Visit Family Practice, [place] [address] [address] [facility] [address] Pete Ambriz MD [address] [facility] [address] 10/01/2024 10:00 AM EST Office Visit Pharmacy, [place] [address] [facility] [address] [facility] [address] [facility], [place] [address] 10/01/2024 10:30 AM EST Anticoagulation Pharmacy, [place] [address] [facility] [address] [facility] [address] [facility] [address] 05/14/2025 10:00 AM EDT Nurse Only Ancillary Department, [place] [address] [place] [address] [place], Nurse Annual Wellness [address] [facility] [place] [address] Scheduled Procedures Name Priority Associated Diagnoses Date/Ti [...] Additional history exists CKD HGB USE SMARTSET 53635 01/28/202501/28, 01/29/2024, 12/27/2023, Additional history exists CKD PHOS USE SMARTSET 08186 01/28/2025 04/0 05/2024, 02/01/2023, 07/29/2022, Additional history [...] D LEVEL ONCE IN A LIFETIME-USE SMARTSET# 73601 Completed 07/03/2024, 08/28/2008, 04/07/2008, Additional history exists [...] 2:56 PM 01/11/2005 3:56 PM Care Teams Rail Maintenance Worker Relationship Specialty Start Date End Date Pete Ambriz MD [address] [place] [address] PCP - General Internal Medicine 05/08/24 documented as of this encounter
--- OUTSIDE RECORDS SUMMARY | 2024-10-24 23:43 | External Medical Summary | Summary of Care ---
Author Name Unknown Organization [facility] Address [address] [place] [address] Phone [phone] Care Team Providers Care Assistant Professor Of Music Name Role Phone Pete Ambriz MD Primary Care Provider [phone] Reason for Visit * Reason Onset Date Comments Advice 07/09/2024 Encounter Details Date Type Department Care Team (Late st Contact Info) Description 07/09/2024 Telephone Access Center, [place] [address] [facility] *DO NOT REMOVE THIS DEPARTMENT* [place] [address] Services, Scheduling [address] [place] [address] Advice Allergies Active Allergy Reactions Criticality Noted Date [...] on management encounter,Aortocoro nary bypass status,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),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 TAKE [...] A1c goal of 7.0%-8.0% ([facility]) Take 1 Tablet by mouth [...] edema, left eye 12/28/2020 Atherosclerosis of [place] ronary artery of [place] heart without angina pectoris 12/19/2019 Persistent atrial [...] Nummular eczema 09/06/2013 07/26/2021 [employer] Other*[id number] 02/03/2012 11/29/2016 Overview: Study Titile: Gen[employer] Markers for Patients with Cardiovascular Disease Project # [id number] PI: Merary Rivera MD Please call [phone] with study related questions Irritable bowel syndrome 05/14/201001/2021 Type 2 diabetes mellitus wit h hemoglobin A1c goal of less than 7.0% 08/06/2009 01/08/2010 Overview: Modified per Diabetes protocol #14. ICD-10 update of inactive term ADVANCE DIRECTIVE INFORMATION 09/27/2007 07/26/2021 Overview: Yes-copy on file Carpal tunnel syndrome 04/14/200404/01 Atherosclerosis of [place] co ronary artery of [place] heart without angina pectoris 04/14/2004 Overview: Duplicate. [...] mRNA, LNP-s, No Pre serve, 2-Dose Series (MetaSolv) 06/22/2021,05/08/2021 Pneumococcal Conjugate Vacc, 13 Valent (Prevnar) [...] encounter Miscellaneous Notes * Telephone Encounter - Courtney New LPN - 07/10/2024 9:23 AM EDT Called and advised pt, no special instructions, she can eat, drink and take her meds as usual. Pt verbalized understanding * Telephone Encounter - Beth Multani OSA - 07/10/2024 9:03 AM EDT Pt's Trent calling in again in regards to previous message. * Telephone Encounter - Katharina Beck OSA - 07/09/2024 4:55 PM EDT Patient Trent calling because patient does not know any instructions for her infusion for reclast tomorrow 07/10. Is she supposed to be taking any medications in the morning? Should she eat or not eat? What part of the body is the infusion given? Please return call with information as soon as possible. Thank you documented in this encounter Plan of Treatment Upcoming Encounters Date Type Department Care Team (Late st Contact Info) Description 07/10/2024 1:15 PM EDT Hem/Onc Treatment Hematology/Oncology Treatment, [place] [address] [place] [id number] [place], Chair 2 Hem Onc Scenery [address] [facility] [address] 08/13/2024 11:00 AM EDT Antico[facility], [place] [address] [facility] [address] [place] [facility] [address] [place] [address] 09/02/2024 10:00 AM EST Office Visit Cardiology, [facility] [address] [facility] [place], [place] [address] Dayton Momin PA-C [address] [facility] [place] [address] 09/02/2024 10:00 AM EST Cardiac Studies Cardiology, [facility] [place] [address] [facility] [address] [facility] [place] [address] 09/23/2024 9:00 AM EST Office Visit Family Practice, [place] [address] [facility], [place] [address] Pete Ambriz MD [address] [facility], [place] [address] 10/01/2024 10:00 AM EST Office Visit Pharmacy, [place] [address] [place] [facility] [place] [address] [facility] [address] [place] [facility] [place] [address] 10/01/2024 10:30 AM EST Anticoagulation Pharmacy, [place] [address] [place] [facility] [place] [address] [facility] [address] [place] [facility] [place] [address] 05/14/2025 10:00 AM EDT Nurse Only Ancillary Department, [place] [address] [facility], [place] [address] [place], Nurse Annual Wellness [address] [facility], [place] [address] Scheduled Procedures Name Priority Associated Diagnoses Date/Ti [...] Additional history exists CKD HGB USE SMARTSET 40133 01/28/202501/28, 01/29/2024, 12/27/2023, Additional history exists CKD PHOS USE SMARTSET 62949 01/28/2025 040 05/2024, 02/01/2023, 07/29/2022, Additional history [...] D LEVEL ONCE IN A LIFETIME-USE SMARTSET# [id number] Completed 07/03/2024, 08/28/2008, 04/07/2008, Additional history exists [...] 3:56 PM Care Teams Assistant Professor Of Music Relationship Specialty Start Date End Date Pete Ambriz MD [address] [place] [address] PCP - General Internal Medicine 05/08/24 documented as of this encounter
--- OUTSIDE RECORDS SUMMARY | 2024-10-24 23:43 | External Medical Summary | Summary of Care ---
Author Name Unknown Organization [facility] Address [address] [facility] [place] [address] Phone [phone] Care Team Providers Care Clinical Office Technician Name Role Phone Pete Ambriz MD Primary Care Provider [phone] Reason for Visit * Reason Comments Cardiac Rehab Encounter Details Date Type Department Care Team (Late st Contact Info) Description 07/01/2024 9:00 AM EDT Telemedicine Cardiac Rehab [facility], Virtual [address] [place] [address] [place] [address] [facility], Virtual Cardiac Rehab [address] [place] [address] [place] [address] Aortocoronary bypass status* Allergies Active Allergy Reactions [...] macular edema, left eye 12/28/2020 Atherosclerosis of [place] co ronary artery of [place] heart without angina pectoris 12/19/2019 Persistent atrial [...] Nummular eczema 09/06/2013 07/26/2021 [employer] Other*[id number] 02/03/2012 11/29/2016 Overview: Study Titile: [employer] Markers for Patients with Cardiovascular Disease Project # [id number] PI: Merary Rivera MD Please call [phone] with study related questions Irritable bowel syndrome 05/14/201001/2021 Type 2 diabetes mellitus wit h hemoglobin A1c goal of less than 7.0% 08/06/2009 01/08/2010 Overview: Modified per Diabetes protocol #14. ICD-10 update of inactive term ADVANCE DIRECTIVE INFORMATION 09/27/2007 07/26/2021 Overview: Yes-copy on file Carpal tunnel syndrome 04/14/200404/01 Atherosclerosis of [place] co ronary artery of [place] heart without angina pectoris 04/14/2004 Overview: Duplicate. [...] No 05/24/2024 Does the household have a [facility] source of income? (Household - [...] Hali De La Torre EPC - 07/12/2024 10:40 AM EDT Session Encounter: Patient is participating in [facility]'s Intensive Cardiac Rehab Program in partnership with [employer] is a specialized company that specializes in providing virtual cardiac rehab services. Session #24 completed. Please refer to scan document for session details. Session type: Education Individual Session duration: 35 minutes documented in this encounter Plan of Treatment Upcoming Encounters Date Type Department Care Team (Late st Contact Info) Description 08/13/2024 11:00 AM EDT Anticoagulation Pharmacy, [place] [address] [place] [facility] [address] [facility] [address] [place] [facility] [address] 09/02/2024 10:00 AM EST Office Visit Cardiology, [facility] [address] [facility] [place] [address] [place] Momin PA-C [address] [facility] [place] [address] 09/02/2024 10:00 AM EST Cardiac Studies Cardiology, [facility] [address] [facility] [place] [address] [facility] [address] [facility] [address] 09/23/2024 9:00 AM EST Office Visit Family Practice, [place] [address] [facility], [place] [address] Pete Ambriz MD [address] [place] [facility] [place] [address] 10/01/2024 10:00 AM EST Office Visit Pharmacy, [place] [address] [facility], [place] [address] [facility] [address] [place] [facility] [place] [address] 10/01/2024 10:30 AM EST Anticoagulation Pharmacy, [place] [address] [facility], [place] [address] [facility] [address] [place] [facility] [address] 05/14/2025 10:00 AM EDT Nurse Only Ancillary Department, [place] [address] [place] [address] [place], Nurse Annual Wellness [address] [place] [address] Scheduled Procedures Name Priority Associated Diagnoses Date/Ti [...] Additional history exists CKD HGB USE SMARTSET 70237 01/28/202501/28, 01/29/2024, 12/27/2023, Additional history exists CKD PHOS USE SMARTSET 65301 01/28/2025 04/0 05/2024, 02/01/2023, 07/29/2022, Additional history [...] D LEVEL ONCE IN A LIFETIME-USE SMARTSET# 87483 Completed 07/03/2024, 08/28/2008, 04/07/2008, Additional history exists [...] 2:56 PM 01/11/2005 3:56 PM Care Teams Clinical Office Technician Relationship Specialty Start Date End Date Pete Ambriz MD [address] [place] [address] PCP - General Internal Medicine 05/08/24 documented as of this encounter
--- OUTSIDE RECORDS SUMMARY | 2024-10-24 23:44 | External Medical Summary ---
Author Name Unknown Address Unknown Organization K01:[facility] - [facility] [address] [place] [address] Laboratory Report Ordering Provider Test Date Status KEITH FERMIN 07/03/2024 12:46:15 Final Exclude Heart Failure: <300 pg/mL
Diagnose Heart Failure:
Age <50 yr: >450 pg/mL
50-75 yr: >900 pg/mL
>75 yr: >1800 pg/mL
GFR is 30-59 mL/min: >1200 pg/mL or Age- adjusted values
GFR <30 mL/min: do not use, not reliable

Prognostic threshold: 1000 pg/mL Observation Date Value Abnormality Reference (Units ) Status BNP, Pro-hormone 07/03/2024 12:46:15 1715 Above high no rmal <300 (pg/mL) Final Performing Location [facility] - [address] [place] [address]
--- OUTSIDE RECORDS SUMMARY | 2024-10-24 23:44 | External Medical Summary | Summary of Care ---
Author Name Unknown Organization [facility] Address [address] [facility] [address] Phone [phone] Care Team Providers Care Resource Recovery Specialist Name Role Phone Pete Ambriz MD Primary Care Provider [phone] Reason for Visit * Reason Comments Dosage Adjustment In Person (Anticoag Cl inic) Diabetes Follow-Up Encounter Details Date Type Department Care Team (Late st Contact Info) Description 07/01/2024 1:30 PM EDT Office Visit Pharmacy, [address] [address] [facility] [address] [place] [address] Type 2 diabetes mellitus with hemoglobin A1c goal of 7.0%-8.0% ([facility])* Allergies Active Allergy Reactions Criticality Noted Date Comments Cephalexin Unknown 09/12/2002 Lisinopril 12/07/2018 Cough Oxycodone 12/04/2003 nausea, stomach pains Tetanus Toxoid 01/28/2009 Local reaction, fever documented as of this encounter (statuses as of 07/01/2024) Medications Medication Sig Dispensed Refills Start Date [...] TWICE DAILY 180 Tablet 3 4 Active DULoxetine HCl 30 MG Oral Capsule Delayed Release Particles (Cymbalta) Take 2 Capsules by mouth in the morning. 4 Active Acetaminophen ER 650 MG Oral [...] as of this encounter (statuses as of 07/01/2024) Active Problems Problem Noted Date Diagnosed Date [...] macular edema, left eye 12/28/2020 Atherosclerosis of [place] co ronary artery of [place] heart without angina pectoris 12/19/2019 Persistent atrial [...] as of this encounter (statuses as of 07/01/2024) Resolved Problems Problem Noted Date Diagnosed Date [...] Nummular eczema 09/06/2013 07/26/2021 [employer] Other*[id number] 02/03/2012 11/29/2016 Overview: Study Titile: Genomics Markers for Patients with Cardiovascular Disease Project # [id number] PI: Merary Rivera MD Please call [phone] with study related questions Irritable bowel syndrome 05/14/201001/2021 Type 2 diabetes mellitus wit h hemoglobin A1c goal of less than 7.0% 08/06/2009 01/08/2010 Overview: Modified per Diabetes protocol #14. ICD-10 update of inactive term ADVANCE DIRECTIVE INFORMATION 09/27/2007 07/26/2021 Overview: Yes-copy on file Carpal tunnel syndrome 04/14/200404/01 Atherosclerosis of [place] co ronary artery of [place] heart without angina pectoris 04/14/2004 Overview: Duplicate. [...] as of this encounter (statuses as of 07/01/2024) Immunizations Name Administration Dates Next Due COVID-19 [...] this encounter Progress Notes * Shania Novak, [facility] - 07/01/2024 1:00 PM EDT Medication Therapy Disease Management Clinic - Diabetes Management Progress Note Tootie Almanza, identified by name and date of , is a 84 year old female being seen for diabetes management/education. Patient presents for return diabetic visit. DIABETES: Current diabetic medications: Metformin ER 500mg, take 2 tablets daily Jardiance 25mg daily Basaglar 25 units daily START Repaglinide 1 mg before every meal. A1C Goal <8% GFR 45 as of 05/24/24 Medication Injection Site: Abdomen Lifestyle: Diet: unchanged Glucose Review/SMBG: Readings obtained from patient documented BG logbook Pre am Post am Pre Lunch Post Lunch Pre pm Post pm HS 246 167 156 141 175 134 122 173 160 145 105 104 189 146 107 137 142 116 122 Average 147 #DIV/0! #DIV/0! #DIV/0! #DIV/0! #DIV/0! #DIV/0! Hi 246 0 0 0 0 0 0 Lo 104 0 [address]3529 0 0 0 0 0 0 Range 142 0 0 0 0 0 0 Hypoglycemia: Does your blood sugar go below 70 mg/dL? No Hyperglycemia symptoms present: none Recent Labs Units 05/24/24 0945 01/29/24 0924 07/25/23 0742 HEMOGLOBIN A1C - [facility] % 9.0* 8.3* 9.0* Recent Labs Units 05/24/24 0945 12/27/23 1313 07/25/23 0742 ESTIMATED GLOMERULAR FILTRATION RATE - [facility] mL/min 45* 47* 46* CREATININE - [facility] mg/dL 1.2* 1.2* 1.2* HYPERTENSION: Patient on ACEi/ARB: yes BP Readings from Last 3 Encounters: 05/24/24 134/68 05/08/24 140/62 04/23/24 118/64 Blood pressure at goal: yes HEALTH MAINTENANCE REVIEW: Health Maintenance Due Topic Date Due Colonoscopy 02/07/2022 *BISPHONATE OR OTHER ACCEPTABLE MEDICATION NEEDED FOR OSTEOPOROSIS (REFER TO SMARTSET #1146) Never done Influenza Vaccine (FLU shot) (1) 06/23/2024 COVID-19 Vaccine ( season) 2024 ASSESSMENT & PLAN: ICD-10-CM 1. Type 2 diabetes mellitus with hemoglobin A1c goal of 7.0%-8.0% (HCC) E11.9 Considerations: - renal function - pt declines CGM as of 08/30/23, will only check BG in the AM - chart review shows ozempic intolerance - obtaining Basaglar through [facility] ([facility]: [phone]) --> reapplied 08/30/23 - cost - not eligible for PACE BG Readings - Blood sugars improved. AM average improved. Medications - Reviewed current regimen, patient is adherent to regimen. No changes at this time, plan to check A1c at next [facility] visit. Diet, Exercise, Lifestyle - No significant lifestyle changes since last visit. Discussed with patient. Patient is agreeable to SMBG 1 time(s) daily. Patient aware to contact clinic if any hypoglycemia before next visit. MEDICATION CHANGES: no change Diabetic Medications: Metformin ER 500mg, take 2 tablets daily Jardiance 25mg daily Basaglar 25 units daily Repaglinide 1 mg before every meal. A1C Goal <8% GFR 45 as of 05/24/24 HEALTH MAINTENANCE INTERVENTIONS: Labs: Up to Date Immunizations: defers flu shot Foot Exam: Up to Date Eye Exam: Up to Date Annual Wellness Visit: Up to Date FOLLOW UP: Return to clinic in 12 weeks for BG check in I spent a total of 20-29 minutes (exact time 20 mins) on the date of service in preparation, delivery, and documentation of the care provided to Tootie Almanza excluding any time spent in the performance of separately billed services. Shania Novak [facility] Clinical Pharmacist - [employer] Medication Therapy Management Clinic 07/01/2024, 1:02 PM documented in this encounter Plan of Treatment Upcoming Encounters Date Type Department Care Team (Late st Contact Info) Description 08/13/2024 11:00 AM EDT [address], [address] [address] [facility] [address] [facility] [address] 09/02/2024 10:00 AM EST Office Visit Cardiology, [facility] [address] [place] [address] Dayton Momin PA-C [address] [place] [address] 09/02/2024 10:00 AM EST Cardiac Studies Cardiology, [facility] [address] [facility] [place] [address] [facility] [address] [place] [address] 09/23/2024 9:00 AM EST Office Visit Family Practice, [place] [address] [address] [facility] [address] Pete Ambriz MD [address] [facility] [place] [address] 10/01/2024 10:00 AM EST Office Visit Pharmacy, [place] [address] [address] [facility] [place] [address] [facility] [address] [facility] [place] [address] 10/01/2024 10:30 AM EST Anticoagulation Pharmacy, [place] [address] [facility] [place] [address] [facility] [address] [facility] [place] [address] 05/14/2025 10:00 AM EDT Nurse Only Ancillary Department, [place] [address] [address] [facility] [address] [place], Nurse Annual Wellness [address] [facility] [place] [address] Scheduled Procedures Name Priority Associated Diagnoses Date/Ti me COLONOSCOPY FLEXIBLE PROXIMA L DIAGNOSTIC Recall History of colonic polyps Health Maintenance Due Date Last Done Comments Colonoscopy 02/07/2022 02/07/2019, 01/21, 03/18/2010 *BISPHONATE OR OTHER ACCEPTABLE MEDICATION NEEDED FOR OSTEOPOROSIS (REFER TO SMARTSET #1146) 12/12/2022 COVID-19 Vaccine (24 season) 2024 06/22/2021, 05/08/2021 Influenza Vaccine (FLU shot) (#1) 2024 08/30/2023, 09/23/2022, 10/01/2019, Additional history exists GFR 11/24/2024 05/24/2024, 03/0 03/2024, 07/25/2023, Additional history exists HbA1c 11/24/2024 05/24/2024, 04/0 05/2024, 07/25/2023, Additional history exists B-12 01/28/2025 01/29/2024, 01/21, 07/29/2022, Additional history exists CKD HGB USE SMARTSET 80521 01/28/202501/28, 01/29/2024, 12/27/2023, Additional history exists CKD PHOS USE SMARTSET 59736 01/28/2025 04/0 05/2024, 02/01/2023, 07/29/2022, Additional history exists Diabetic Foot Exam 04/23/2025 04/23/2024, 1 , 07/26/2021, Additional history exists Adult Wellness Visit 05/08/2025 05/08/2024, 05/05/20 23 Depression Screening 05/08/2025 05/08/2024 Albumin/Creatinine Ratio 05/24/2025 0802/2 024, 07/25/2023, 02/01/2023, Additional history exists Diabetic Eye Exam 06/03/2025 06/03/2024, , 12/01/2023, Additional history exists DXA Scan 06/04/2026 06/04/2024, 02/20, 03/01/2022, Additional history exists VITAMIN D LEVEL ONCE IN A LIFETIME-USE SMARTSET# 24733 Completed 08/28/2008, 04/07/2008, 12/04/2007 Pneumococcal Vaccine: 65+ Years Completed 05/08/2018, 08/12/2016, 07/20/2005 HPV (Gardasil) Vaccine Aged Out No lo [...] goal of 7.0%-8.0% ([facility])- Primary documented in this encounter Advance Directives * No Code Status (Latest Code Status on File) Date Activated Date Inactivated Comments 01/11/2005 2:56 PM 01/11/2005 3:56 PM Care Teams Resource Recovery Specialist Relationship Specialty Start Date End Date Pete Ambriz MD [address] [place] [address] PCP - General Internal Medicine 05/08/24 documented as of this encounter
--- OUTSIDE RECORDS SUMMARY | 2024-10-24 23:44 | External Medical Summary | Summary of Care ---
Author Name Unknown Organization [facility] Address [address] [place] [address] Phone [phone] Care Team Providers Care Plate Inspector Name Role Phone Pete Ambriz MD Primary Care Provider [phone] Reason for Visit * Reason Comments Dosage Adjustment In Person (Anticoag Cl inic) Encounter Details Date Type Department Care Team (Latest Contact Info) Description 07/01/2024 1:40 PM EDT Anticoagulation Pharmacy, [address] [address] [facility] [address] [place] [address] Anticoagulation management encounter*; Persistent atrial fibrillation (HCC) [...] management encounter,Aortocoro nary bypass status,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 [...] mRNA, LNP-s, No Pre serve, 2-Dose Series (3LM) 06/22/2021,05/08/2021 Pneumococcal Conjugate Vacc, 13 Valent (Prevnar) [...] No 05/24/2024 Does the household have a [facility] source of income? (Household - for [...] this encounter Progress Notes * Shania Novak, [facility] - 07/01/2024 1:06 PM EDT Medication Therapy Disease Management - Anticoagulation Patient: Tootie Almanza | : 1940 Subjective Patient-Reported Symptoms: Patient Findings Negatives: Signs/symptoms of thrombosis, Signs/symptoms of bleeding, Change in health, Change in alcohol use, Change in activity, Upcoming invasive procedure, Missed doses, Extra doses, Change in medications, Change in diet/appetite, Bruising Objective Current Warfarin Dose As of 07/01/2024 Warfarin maintenance plan: 2 mg (2 mg x 1) every Mon; 1 mg (2 mg x 0.5) all other days INR Result As of 07/01/2024 INR goal: 2.0-3.0 INR used for dosin.7 (07/01/2024) Assessment & Plan Warfarin Plan As of 07/01/2024 Full warfarin instructions: 2 mg every Mon; 1 mg all other days Next INR check: 08/13/2024 Repeat PT/INR in 6 week(s) Weekly dose: not changed Additional Dosing Information: I spent a total of 10-19 minutes (exact time 10 mins) on the date of service in preparation, delivery, and documentation of the care provided to Tootie Almanza excluding any time spent in the performance of separately billed services or time spent by another provider/QHP. Shania Novak [facility] Clinical Pharmacist 07/01/2024, 1:08 PM documented in this encounter Plan of Treatment Upcoming Encounters Date Type Department Care Team (Late st Contact Info) Description 08/13/2024 11:00 AM EDT Anticoagulation Pharmacy, [address] [address] [place] [address] [place] [address] 09/02/2024 10:00 AM EST Office Visit Cardiology, [facility] [address] [place] [address] [place] Momin PA-C [address] [place] [address] 09/02/2024 10:00 AM EST Cardiac Studies Cardiology, [facility] [address] [place] [address] [place], [address] [place] [address] 09/23/2024 9:00 AM EST Office Visit Family Practice, [place] [address] [address] [facility], [place] [address] Pete Ambriz MD [address] [facility], [place] [address] 10/01/2024 10:00 AM EST Office Visit Pharmacy, [place] [address] [address] [facility], [place] [address] [facility] [address] [facility], [place] [address] 10/01/2024 10:30 AM EST Anticoagulation Pharmacy, [place] [address] [address] [facility], [place] [address] [facility] [address] [facility], [place] [address] 05/14/2025 10:00 AM EDT Nurse Only Ancillary Department, [place] [address] [address] [facility], [place] [address] [place], Nurse Annual Wellness [address] [facility], [place] [address] Scheduled Procedures Name Priority Associated Diagnoses Date/Ti [...] Additional history exists CKD HGB USE SMARTSET 50149 01/28/202501/28, 01/29/2024, 12/27/2023, Additional history exists CKD PHOS USE SMARTSET 89630 01/28/2025 040 05/2024, 02/01/2023, 07/29/2022, Additional history [...] D LEVEL ONCE IN A LIFETIME-USE SMARTSET# [id number] Completed 08/28/2008, 04/07/2008, 12/04/2007 Pneumococcal Vaccine: 65+ [...] Diagnosis Comments INR FINGERSTICK, POINT OF CARE JUSTYNA 07/01/2024 1:08 PM EDT documented in this encounter Results * INR FINGERSTICK, POINT OF CARE (07/01/2024 1:08 PM EDT) Fingerstick INR 2.7 INR 1:35 PM EDT [facility] [place] - Blood 07/01/2024 1:08 PM EDT 07/01/2024 1:35 PM EDT Narrative [facility] [place] [facility]- - 07/01/2024 1:35 PM EDT Therapeutic ranges for non-operative patients: Prophylaxsis/treatment of DVT: (Range:2.0-3.0) Treatment of pulmonary embolism:(Range:2.0-3.0) Prevention of systemic embolism from: -tissue heart valves -acute myocardial infarction -valvular heart disease -atrial fibrillation (Range: 2.0-3.0) Mechanical prosthetic valves: (Range: 2.5-3.5) [facility] POINT OF CARE TEST DOCKED DEVICE UNSOLICITED RESULTS [facility] [address] [place] [address] documented in this encounter Visit Diagnoses Diagnosis Anticoagulation management encounter- Primary Encounter for therapeutic drug monitoring Persistent atrial fibrillation (HCC) 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 documented in this encounter Advance Directives * No Code Status (Latest Code Status on File) Date Activated Date Inactivated Comments 01/11/2005 2:56 PM 01/11/2005 3:56 PM Care Teams Plate Inspector Relationship Specialty Start Date End Date Pete Ambriz MD [address] [place] [address] PCP - General Internal Medicine 05/08/24 documented as of this encounter"
--- OUTSIDE RECORDS SUMMARY | 2024-10-24 23:44 | External Medical Summary | Summary of Care ---
Author Name Unknown Organization [facility] Address [address] [facility] [place] [address] Phone [phone] Care Team Providers Care Energy Sales Consultant Name Role Phone Pete Ambriz MD Primary Care Provider [phone] Reason for Visit * Reason Comments Cardiac Rehab Encounter Details Date Type Department Care Team (Late st Contact Info) Description 06/24/2024 9:00 AM EDT Telemedicine Cardiac Rehab [facility], Virtual [address] [place] [address] [place] [address] Advanced, Virtual Cardiac Rehab [address] [place] [address] [place] [address] Aortocoronary bypass status* Allergies Active Allergy Reactions [...] on management encounter,Aortocoro nary bypass status,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),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 TAKE 1/2 [...] macular edema, left eye 12/28/2020 Atherosclerosis of pal[place] co ronary artery of pala heart without angina pectoris 12/19/2019 Persistent atrial [...] Nummular eczema 09/06/2013 07/26/2021 [employer] Other*[id number] 02/03/2012 11/29/2016 Overview: Study Titile: [employer] Markers for Patients with Cardiovascular Disease Project # [id number] PI: Merary Rivera MD Please call [phone] with study related questions Irritable bowel syndrome 05/14/201001/2021 Type 2 diabetes mellitus wit h hemoglobin A1c goal of less than 7.0% 08/06/2009 01/08/2010 Overview: Modified per Diabetes protocol #14. ICD-10 update of inactive term ADVANCE DIRECTIVE INFORMATION 09/27/2007 07/26/2021 Overview: Yes-copy on file Carpal tunnel syndrome 04/14/200404/01 Atherosclerosis of [place] co ronary artery of pal[place] heart without angina pectoris 04/14/2004 Overview: Duplicate. [...] No 05/24/2024 Does the household have a [facility] source of income? (Household - [...] [facility] La [facility] - 07/04/2024 8:55 PM EDT Session Encounter: Patient is participating in [employer]'s Intensive Cardiac Rehab Program in partnership with [employer] is a specialized company that specializes in providing virtual cardiac rehab services. Session #19 completed. Please refer to scan document for session details. Session type: Education Group Session duration: 60 minutes documented in this encounter Plan of Treatment Upcoming Encounters Date Type Department Care Team (Late st Contact Info) Description 07/05/2024 10:00 AM EDT Imaging Radiology [facility] [place] [address] 08/13/2024 11:00 AM EDT Anticoagulation Pharmacy, [place] [address] [facility], [place] [address] [place], [facility] [address] [facility], [place] [address] 09/02/2024 10:00 AM EST Office Visit Cardiology, [facility] [place] [address] [place] Momin PA-C [facility] [place] [address] 09/02/2024 10:00 AM EST Cardiac Studies Cardiology, [facility] [address] [facility] [place] [address] [place] [facility] [address] 09/23/2024 9:00 AM EST Office Visit Family Practice, [place] [address] [address] [facility] [address] Pete Ambriz MD [address] [facility] [address] 10/01/2024 10:00 AM EST Office Visit Pharmacy, [place] [address] [facility] [address] [facility] [address] [facility], [place] [address] 10/01/2024 10:30 AM EST Anticoagulation Pharmacy, [place] [address] [facility] [address] [facility] [address] [facility] [address] 05/14/2025 10:00 AM EDT Nurse Only Ancillary Department, [place] [address] [place] [address] [place], Nurse Annual Wellness [address] [facility] [place] [address] Scheduled Procedures Name Priority Associated Diagnoses Date/Ti [...] Additional history exists CKD HGB USE SMARTSET 77494 01/28/202501/28, 01/29/2024, 12/27/2023, Additional history exists CKD PHOS USE SMARTSET 24934 01/28/2025 04/0 05/2024, 02/01/2023, 07/29/2022, Additional history [...] D LEVEL ONCE IN A LIFETIME-USE SMARTSET# [id number] Completed 07/03/2024, 08/28/2008, 04/07/2008, Additional history exists [...] 2:56 PM 01/11/2005 3:56 PM Care Teams Energy Sales Consultant Relationship Specialty Start Date End Date Pete Ambriz MD [address] [place] [address] PCP - General Internal Medicine 05/08/24 documented as of this encounter
--- OUTSIDE RECORDS SUMMARY | 2024-10-24 23:44 | External Medical Summary | Summary of Care ---
Author Name Unknown Organization [facility] Address [address] [place] [address] Phone [phone] Care Team Providers Care Rotary Drier Operator Name Role Phone Pete Ambriz MD Primary Care Provider [phone] Reason for Visit * Reason Comments Outpatient Testing Encounter Details Date Type Department Care Team (Late st Contact Info) Description 07/03/2024 1:00 PM EDT Laboratory Laboratory, [place] [address] [place] [address] [place], Laboratory [address] [place] [address] Age-related osteoporosis without current pathological fracture; Chronic cough Allergies Active Allergy Reactions Criticality Noted Date Comments Cephalexin Unknown 09/12/2002 Lisinopril 12/07/2018 Cough Oxycodone 12/04/2003 nausea, stomach pains Tetanus Toxoid 01/28/2009 Local reaction, fever documented as of this encounter (statuses as of 07/03/2024) Medications Medication Sig Dispensed Refills Start Date [...] on management encounter,Aortocoro nary bypass status,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),senior living current use of anticoagulant therapy TAKE 1/2 TO 1 TABLET BY MOUTH ONCE DAILY DIRECTED BY [facility]MADIN CLINIC 90 Tablet 3 4 Active metFORMIN HCl ER 500 MG Oral Tablet Extended Release 24 Hour (Glucophage XR)Indications:Type 2 diabetes mellitus with hemoglobin A1c goal of 7.0%-8.0% ([facility]) TAKE 2 TABLETS BY MOUTH DAILY WITH MEALS 4 Active Repaglinide 1 MG Oral Tablet (Prandin)Indication s:Type 2 diabetes mellitus with hemoglobin A1c goal of 7.0%-8.0% ([facility]) Take 1 Tablet by mouth in [...] MG Oral Capsule (Tessalon Perlaustin)Indications: Bronchitis, complicated Take 1 Capsule by mouth [...] as of this encounter (statuses as of 07/03/2024) Active Problems Problem Noted Date Diagnosed Date [...] macular edema, left eye 12/28/2020 Atherosclerosis of [place] co ronary artery of [place] heart without angina pectoris 12/19/2019 Persistent atrial [...] as of this encounter (statuses as of 07/03/2024) Resolved Problems Problem Noted Date Diagnosed Date [...] Nummular eczema 09/06/2013 07/26/2021 [employer] Other*[id number] 02/03/2012 11/29/2016 Overview: Study Titile: [employer] Markers for Patients with Cardiovascular Disease Project # [id number] PI: Merary Rivera MD Please call [phone] with study related questions Irritable bowel syndrome 05/14/201001/2021 Type 2 diabetes mellitus wit h hemoglobin A1c goal of less than 7.0% 08/06/2009 01/08/2010 Overview: Modified per Diabetes protocol #14. ICD-10 update of inactive term ADVANCE DIRECTIVE INFORMATION 09/27/2007 07/26/2021 Overview: Yes-copy on file Carpal tunnel syndrome 04/14/200404/01 Atherosclerosis of [place] co ronary artery of [place] heart without angina pectoris 04/14/2004 Overview: Duplicate. [...] as of this encounter (statuses as of 07/03/2024) Immunizations Name Administration Dates Next Due COVID-19 [...] Description 07/05/2024 10:00 AM EDT Imaging Radiology [facility] [address] [facility] [place] [address] 08/13/2024 11:00 AM EDT Anticoagulation Pharmacy, [place] [address] [facility] [address] [place], [facility] [address] [facility] [address] 09/02/2024 10:00 AM EST Office Visit Cardiology, [facility] [address] [facility] [place] [address] [place] Momin PA-C 132 [facility] [place] [address] 09/02/2024 10:00 AM EST Cardiac Studies Cardiology, [facility] [address] [facility] [place] [address] [facility] [address] [facility] [place] [address] 09/23/2024 9:00 AM EST Office Visit Family Practice, [place] [address] [facility] [phone] Pete Ambriz MD [address] [facility] [facility] [address] 10/01/2024 10:00 AM EST Office Visit Pharmacy, [place] [address] [facility] [facility] [address] [facility] [address] [place] [address] 10/01/2024 10:30 AM EST Anticoagulation Pharmacy, [place] [address] [place] [facility] [address] [facility] [address] [place] [facility] [place] [address] 05/14/2025 10:00 AM EDT Nurse Only Ancillary Department, [place] [address] [place] [address] [place], Nurse Annual Wellness [address] [place] [address] Pending Results Name Type Priority Associated Diagnoses Date /Time 25-HYDROXY VITAMIN D Lab Routine Age-related osteoporosis without current pathological fracture 07/03/2024 12:46 PM EDT CREATININE Lab Routine Age-related osteoporosis without current pathological fracture 07/03/2024 12:46 PM EDT CALCIUM Lab Routine Age-related osteoporosis without current pathological fracture 07/03/2024 12:46 PM EDT BNP, NT-PRO Lab Routine Chronic cough 07/03/2024 12:46 PM EDT Scheduled Procedures Name Priority Associated Diagnoses Date/Ti [...] Additional history exists CKD HGB USE SMARTSET 53873 01/28/202501/28, 01/29/2024, 12/27/2023, Additional history exists CKD PHOS USE SMARTSET 96838 01/28/2025 04/0 05/2024, 02/01/2023, 07/29/2022, Additional history [...] D LEVEL ONCE IN A LIFETIME-USE SMARTSET# 54186 Completed 08/28/2008, 04/07/2008, 12/04/2007 Pneumococcal Vaccine: 65+ [...] Diagnoses Diagnosis Age-related osteoporosis without current pathological fracture Senile osteoporosis Chronic cough Cough documented in this encounter Advance Directives * No Code Status (Latest Code Status on File) Date Activated Date Inactivated Comments 01/11/2005 2:56 PM 01/11/2005 3:56 PM Care Teams Rotary Drier Operator Relationship Specialty Start Date End Date Pete Ambriz MD [address] [place] [address] PCP - General Internal Medicine 05/08/24 documented as of this encounter
--- OUTSIDE RECORDS SUMMARY | 2024-10-24 23:44 | External Medical Summary | Summary of Care ---
Author Name Unknown Organization [facility] Address [address] [facility] [place] [address] Phone [phone] Care Team Providers Care It Admin Name Role Phone Pete Ambriz MD Primary Care Provider [phone] Encounter Details Date Type Department Care Team (Late st Contact Info) Description 06/28/2024 Orders Only PATIENT PORTAL DO NOT DELETE THIS DEPT USED BY [place] [id number] Allergies Active Allergy Reactions Criticality Noted Date Comments Cephalexin Unknown 09/12/2002 Lisinopril 12/07/2018 Cough Oxycodone 12/04/2003 nausea, stomach pains Tetanus Toxoid 01/28/2009 Local reaction, fever documented as of this encounter (statuses as of 06/28/2024) Medications Medication Sig Dispensed Refills Start Date [...] inject basaglar once daily. 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) Take 1 Tablet by mouth in [...] as of this encounter (statuses as of 06/28/2024) Active Problems Problem Noted Date Diagnosed Date [...] macular edema, left eye 12/28/2020 Atherosclerosis of [place] co ronary artery of [place] heart without angina pectoris 12/19/2019 Persistent atrial [...] as of this encounter (statuses as of 06/28/2024) Resolved Problems Problem Noted Date Diagnosed Date [...] Nummular eczema 09/06/2013 07/26/2021 [employer] Other*[id number] 02/03/2012 11/29/2016 Overview: Study Titile: [employer] Markers for Patients with Cardiovascular Disease Project # [id number] PI: Merary Rivera MD Please call [phone] with study related questions Irritable bowel syndrome 05/14/201001/2021 Type 2 diabetes mellitus wit h hemoglobin A1c goal of less than 7.0% 08/06/2009 01/08/2010 Overview: Modified per Diabetes protocol #14. ICD-10 update of inactive term ADVANCE DIRECTIVE INFORMATION 09/27/2007 07/26/2021 Overview: Yes-copy on file Carpal tunnel syndrome 04/14/200404/01 Atherosclerosis of [place] co ronary artery of [place] heart without angina pectoris 04/14/2004 Overview: Duplicate. [...] as of this encounter (statuses as of 06/28/2024) Immunizations Name Administration Dates Next Due COVID-19 [...] No 05/24/2024 Does the household have a [facility] source of income? (Household - for ages [...] Description 07/01/2024 1:30 PM EDT [place] [address] [facility] [address] [place] [facility] [address] [facility] [address] 07/01/2024 1:40 PM EDT Anticoagulation [place] [address] [facility] [place] [address] [place], [facility] [address] [facility] [place] [address] 09/02/2024 10:00 AM EST Office Visit Cardiology, [facility] [address] [facility] [place] [address] [place] Momin PA-C [address] [place] [address] 09/02/2024 10:00 AM EST Cardiac Studies Cardiology, [facility] [address] [facility] [place] [address] [place], [facility] [address] [facility] [place] [address] 09/23/2024 9:00 AM EST Office Visit Family [facility], [place] [address] [place] [phone] Pete Ambriz MD [address] [place] [address] 05/14/2025 10:00 AM EDT Nurse Only Ancillary Department, [place] [address] [place] [address] [place], Nurse Annual Wellness [address] [place] [address] Scheduled Procedures Name Priority Associated Diagnoses Date/Ti [...] Additional history exists CKD HGB USE SMARTSET 74436 01/28/202501/28, 01/29/2024, 12/27/2023, Additional history exists CKD PHOS USE SMARTSET 91790 01/28/2025 04/0 05/2024, 02/01/2023, 07/29/2022, Additional history [...] D LEVEL ONCE IN A LIFETIME-USE SMARTSET# 71406 Completed 08/28/2008, 04/07/2008, 12/04/2007 Pneumococcal Vaccine: 65+ [...] 2:56 PM 01/11/2005 3:56 PM Care Teams It Admin Relationship Specialty Start Date End Date Pete Ambriz MD [address] [place] [address] PCP - General Internal Medicine 05/08/24 documented as of this encounter
--- OUTSIDE RECORDS SUMMARY | 2024-10-24 23:44 | External Medical Summary ---
Author Name Unknown Address Unknown Organization K01:[facility] [place] [address] [place] [address] Laboratory Report Ordering Provider Test Date Status GIL MORALES 07/03/2024 12:46:15 Final Observation Date Value Abnormality Reference (Units ) Status Creatinine 07/03/2024 12:46:15 1.0 0.5-1.0 (mg/dL) Final Glomerular filtration rate/1.73 sq M.predicted [Volume Rate/Area] in Serum, Plasma or Blood by Creatinine-based formula (CKD-EPI) 07/03/2024 12:46:15 54 Below low normal >=60 (mL/min) Final eGFR is calculated based on the CKD-EPI 2020 equation. Performing Location [facility] [place] [address] [place] [address]
--- OUTSIDE RECORDS SUMMARY | 2024-10-24 23:44 | External Medical Summary ---
Author Name Unknown Address Unknown Organization : Laboratory Report Ordering Provider Test Date Status RAMESH CRUZ 07/01/2024 13:08:51 Final Therapeutic ranges for non-o perative patients:
Prophylaxsis/treatment of DVT: (Range:2.0-3.0)
Treatment of pulmonary embolism:(Range:2.0-3.0)
Prevention of systemic embolism from:
-tissue heart valves
-acute myocardial infarction
-valvular heart disease
-atrial fibrillation
(Range: 2.0-3.0)
Mechanical prosthetic valves: (Range: 2.5-3.5) Observation Date Value Abnormality Reference (Units ) Status INR in Capillary blood by Coagulation assay 07/01/2024 13:08:51 2.7 (INR) Final Performing Location
--- OUTSIDE RECORDS SUMMARY | 2024-10-24 23:44 | External Medical Summary | Summary of Care ---
Author Name Unknown Organization [facility] Address [address] [facility] [address] Phone [phone] Care Team Providers Care Security Patrol Officer Name Role Phone Pete Ambriz MD Primary Care Provider [phone] Reason for Visit * Reason Onset Date Comments Medication Pre-auth 06/26/2024 Reclast Encounter Details Date Type Department Care Team (Late st Contact Info) Description 06/26/2024 Telephone Hematology/Oncology Treatment, [place] [address] [place] [address] Jairo Owen PA-C [facility] [place] [address] Medication Pre-auth (Reclast) Allergies Active Allergy [...] management encounter,Aortoco ronary bypass status,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),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 TAKE [...] edema, left eye 12/28/2020 Atherosclerosis of [place] co ronary artery of [place] heart without angina pectoris 12/19/2019 Persistent atrial [...] Nummular eczema 09/06/2013 07/26/2021 [employer] Other*[id number] 02/03/2012 11/29/2016 Overview: Study Titile: Genomics Markers for Patients with Cardiovascular Disease Project # [id number] PI: Merary Rivera MD Please call [phone] with study related questions Irritable bowel syndrome 05/14/201001/2021 Type 2 diabetes mellitus wit h hemoglobin A1c goal of less than 7.0% 08/06/2009 01/08/2010 Overview: Modified per Diabetes protocol #14. ICD-10 update of inactive term ADVANCE DIRECTIVE INFORMATION 09/27/2007 07/26/2021 Overview: Yes-copy on file Carpal tunnel syndrome 04/14/200404/01 Atherosclerosis of [place] co ronary artery of [place] heart without angina pectoris 04/14/2004 Overview: Duplicate. [...] 12:04 PM EDT Order received for Reclast [place] plan built and routed to provider Awaiting provider signature, prior authorization, and completed lab results before scheduling patient. documented in this encounter Plan of Treatment Upcoming Encounters Date Type Department Care Team (Late st Contact Info) Description 07/05/2024 10:00 AM EDT Imaging Radiology [facility]st [facility], [place] [address] [facility] [place] [address] 08/13/2024 11:00 AM EDT Anticoagulation Pharm[facility], [place] [address] [facility] [address] [facility] [address] [facility] [address] 09/02/2024 10:00 AM EST Office Visit Cardiology, [facility] [address] [facility] [place] [address] [place] Momin PA-C [address] [facility] [place] [address] 09/02/2024 10:00 AM EST Cardiac Studies Cardiology, [facility] [address] [facility] [place] [address] [facility] [address] [place] [address] 09/23/2024 9:00 AM EST Office Visit Family Practice, [place] [address] [facility], [place] [id number] Peet Ambriz MD [address] [facility], [place] [address] 10/01/2024 10:00 AM EST Office Visit Pharmacy, [place] [address] [place] [facility] [address] [facility] [address] [place] [facility] [address] 10/01/2024 10:30 AM EST Anticoagulation Pharmacy, [place] [address] [place] [facility] [address] [facility] [address] [place] [facility] [place] [address] 05/14/2025 10:00 AM EDT Nurse Only Ancillary Department, [place] [address] [facility], [place] [address] [place], Nurse [facility] [address] [facility], [place] [address] Scheduled Procedures Name Priority Associated Diagnoses Date/Ti [...] Additional history exists CKD HGB USE SMARTSET 80038 01/28/202501/28, 01/29/2024, 12/27/2023, Additional history exists CKD PHOS USE SMARTSET 38224 01/28/2025 04/0 05/2024, 02/01/2023, 07/29/2022, Additional history [...] D LEVEL ONCE IN A LIFETIME-USE SMARTSET# 18756 Completed 08/28/2008, 04/07/2008, 12/04/2007 Pneumococcal Vaccine: 65+ [...] 2:56 PM 01/11/2005 3:56 PM Care Teams Security Patrol Officer Relationship Specialty Start Date End Date Pete Ambriz MD [address] [place] [address] PCP - General Internal Medicine 05/08/24 documented as of this encounter
--- OUTSIDE RECORDS SUMMARY | 2024-10-24 23:44 | External Medical Summary ---
Author Name Unknown Address Unknown Organization K01:[facility] [place] - [address] [place] [address] Laboratory Report Ordering Provider Test Date Status GIL MORALES 07/03/2024 12:46:15 Final Observation Date Value Abnormality Reference (Units ) Status Calcium 07/03/2024 12:46:15 9.6 8.4-10.2 ( mg/dL) Final Performing Location [facility] - [address] [place] [address]
--- OUTSIDE RECORDS SUMMARY | 2024-10-24 23:44 | External Medical Summary | Summary of Care ---
Author Name Unknown Organization [facility] Address [address] [place] [address] Phone [phone] Care Team Providers Care Summer School Coordinator Name Role Phone Pete Ambriz MD Primary Care Provider [phone] Reason for Visit * Reason Comments Acute Patient is here toda y due to a cough and sneezing. Patient states the medications given to her from Dr. Ambriz seem to not make a huge difference. Patient states the cough has been ongoing for at least a month if not longer. Patient states she notices a difference in her breathing and at times labored. 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 ICD-10 update of inactive term ADVANCE DIRECTIVE INFORMATION 09/27/2007 07/26/2021 Overview: Yes-copy on file Carpal tunnel syndrome 04/14/200404/01 Atherosclerosis of [place] co ronary artery of [place] heart without angina pectoris 04/14/2004 Overview: Duplicate. [...] Sign Reading Time Taken Comments Blood Pressure 122/62 07/03/2024 11:48 AM EDT Pulse 98 07/03/2024 11:48 AM EDT Temperature 35.9 C (96.6 F) 07/03/2024 11:48 AM E DT Respiratory Rate 18 07/03/2024 11:48 AM EDT Oxygen Saturation 98% 07/03/2024 11:48 AM EDT Inhaled Oxygen Concentration - - Weight 71.7 kg (158 lb) 07/03/2024 11:48 AM EDT Height 152.4 cm (5') 07/03/2024 11:48 AM EDT Body Mass Index 30.86 07/03/2024 11:48 AM EDT documented in this encounter Progress Notes * [place] Do MD - 07/03/2024 12:07 PM EDT Subjective: Tootie Almanza is a 84 year old female. Chief Complaint Patient presents with Acute Patient is here today due to a cough and sneezing. Patient states the medications given to her from Dr. Ambriz seem to not make a huge difference. Patient states the cough has been ongoing for at least a month if not longer. Patient states she notices a difference in her breathing and at times labored. HPI: 84-year-old who has a significant past medical history that includes type 2 diabetes, ischemicheart disease status post CABG, persistent atrial fibrillation, cardiac pacemaker is seen today because of a chronic cough. This is a dry cough. It persist through the night in his waking her up. This has been present for extended time. It is a little bit unclear exactly how long or when it may have started how it started. It is unclear if she had upper respiratory infection type symptoms that led to the cough. It sounds as if it has been more a long-term problem. She has some chronic lower legedema but that has not worsened. She is on Lasix therapy. She has not had any recent fever. She does not have any classic postnasal drainage symptoms. She does need to get a new pacemaker or least battery in August. She does not have orthopnea Patient Active Problem List Diagnosis Aortocoronary bypass status NONTOX MULTINODUL GOITER alf current use of anticoagulant therapy Vitamin D deficiency DYSLIPIDEMIA, GOAL LDL BELOW 70 Type 2 diabetes mellitus with hemoglobin A1c goal of 7.0%-8.0% ([facility]) Chronic diarrhea Cardiac pacemaker in situ Pulmonary hypertension ([facility]) DISH (diffuse idiopathic skeletal hyperostosis) Type 2 diabetes mellitus with diabetic neuropathy ([facility]) HTN, goal below 130/80 Persistent atrial fibrillation ([facility]) Atherosclerosis of [place] coronary artery of [place] heart without angina pectoris Age-related osteoporosis without current pathological fracture Type 2 diabetes mellitus with mild nonproliferative diabetic retinopathy without macular edema, left eye ([facility]) Chronic kidney disease, stage 3a ([facility]) 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, with long-term current use of insulin ([facility]) Hypertensive heart and kidney disease with chronic diastolic congestive heart failure and stage 3a chronic kidney disease ([facility]) Type 2 diabetes mellitus with peripheral artery disease ([facility]) Type 2 diabetes mellitus with stage 3a chronic kidney disease, without long-term current use of insulin ([facility]) Sebaceous cyst Chronic rhinitis Current [...] 1 TABLET BY [facility] Tablet 3 metFORMIN HCl ER 500 MG Oral Tablet Extended Release 24 Hour (Glucophage XR) TAKE 2 TABLETS BY MOUTH DAILY WITH MEALS Repaglinide 1 MG Oral Tablet (Prandin) Take [...] DAILY IN THE MORNING 60 Capsule 5 Nitroglycerin 0.4 MG Sublingual Tablet Sublingual (Nitrostat) Place 1 Tablet under the tongue every5 minutes as needed (up to three tablets). Up to 3 doses in 15 minutes. (Patient not taking: Reported on 06/26/2024) 12 Tablet 3 Current Facility-Administered Medications Medication Dose Route Frequency Provider Last Rate Last Admin potassium chloride ER tab 10 mEq 10 mEq Oral Daily(AM) Chinmay Scherer DO Review of patient's allergies indicates: Allergen Reactions Cephalexin Unknown Lisinopril Cough Oxycodone nausea, stomach pains Tetanus Toxoid Local reaction, fever Objective: BP 122/62 | Pulse 98 | Temp 35.9 C (96.6 F) (Tympanic) | Resp 18 | Ht 1.524 m (5') | Wt 71.7 kg(158 lb) | SpO2 98% | BMI 30.86 kg/m | BSA 1.74 m Physical Exam: CONST: alert, pleasant, no acute distress HEAD: normocephalic, atraumatic NECK: supple, soft, no adenopathy EARS: canals normal, TMs normal NARES: clear Eyes - PERRLA, EOM'I OROPHARYNX: clear, no swelling or erythema, moist CV: regular rate and rhythm, no murmur CHEST: Somewhat decreased breath sounds throughout with scattered end expiratory wheezes. These were more prominent at both bases ABD: soft, non tender, non distended, no masses or hepatosplenomegaly EXT: 1+ bilateral lower leg edema, no joint swelling or deformities, NEURO: AAOx3, no gross focal deficits, cerebellar signs normal, affect appropriate MENTAL STATUS: no evidence of thought disorder, no delusional thought, no evidence of paranoia, thought is non-tangential. SKIN: no rash or significant lesions ASSESSMENT/PLAN: Bronchitis, complicated (Primary): Get chest x-ray in particular rule out infiltrative/pneumonia process but also looking for indications of CHF. Empirically treat with Z-Kyle. Try Tessalon 100 mg, 1 tab 3 times daily as needed for cough. Albuterol metered-dose inhaler, 2 puffs as often as 4 times a day. I did review with her proper useof the metered-dose inhaler Chronic cough-consider heart failure. Get chest x-ray and BNP. She does have follow-up with her primary physician Dr. Ambriz September 23, 2024. [place] Do MD documented in this encounter Nursing Notes * Kelley Nixon FELISA Zhong - 07/03/2024 11:52 AM EDT The patient has been properly identified by confirmation of name and date of . Chief Complaint Patient presents with Acute Patient is here today due to a cough and sneezing. Patient states the medications given to her from Dr. Ambriz seem to not make a huge difference. Patient states the cough has been ongoing for at least a month if not longer. Patient states she notices a difference in her breathing and at times labored. documented in this encounter Plan of Treatment Upcoming Encounters Date Type Department Care Team (Late st Contact Info) Description 07/05/2024 10:00 AM EDT [facility] [address] [facility] [place] [address] 08/13/2024 11:00 AM EDT Anticoagulation Pharmacy, [place] [address] [place] [address] [place] [address] [place] [address] 09/02/2024 10:00 AM EST Office Visit Cardiology, [facility] [address] [facility] [address] [place] Momin PA-C [address] [place] [address] 09/02/2024 10:00 AM EST Cardiac Studies Cardiology, [facility] [address] [facility] [place] [address] [facility] [address] [place] [address] 09/23/2024 9:00 AM EST Office Visit Family [place] [address] [place] [address] Pete Ambriz MD [address] [place] [address] 10/01/2024 10:00 AM EST Office Visit Pharmacy, [place] [address] [place] [address] [facility] [address] [place] [address] 10/01/2024 10:30 AM EST Anticoagulation Pharmacy, [place] [address] [facility], [place] [address] [facility] [address] [place] [address] 05/14/2025 10:00 AM EDT Nurse Only Ancillary Department, [place] [address] [place] [address] [place], Nurse Annual [facility] [address] [place] [facility] [place] [address] Pending Results Name Type Priority Associated Diagnoses Date /Time BNP, NT-PRO Lab Routine Chronic cough 07/03/2024 12:46 PM EDT Scheduled Orders Name Type Priority Associated Diagnoses Orde r Schedule XR CHEST 2 VIEWS Medical Imaging Routine Bronchitis, complicated Expected: 07/03/2024, Expires: 10/02/2024 BNP, NT-PRO Lab Routine Chronic cough Expected: 07/03/2024 (Approximate), Expires: 07/03/2025 Scheduled Procedures Name Priority Associated Diagnoses Date/Ti [...] 10/01/2019, Additional history exists GFR 11/24/2024 05/24/2024, 0303/2024, 07/25/2023, Additional history exists HbA1c 11/24/2024 05/24/2024, 04/0 05/2024, 07/25/2023, Additional history exists B-12 01/28/2025 01/29/2024, 01/21, 07/29/2022, Additional history exists CKD HGB USE SMARTSET 43549 01/28/202501/28, 01/29/2024, 12/27/2023, Additional history exists CKD PHOS USE SMARTSET 13145 01/28/2025 040 05/2024, 02/01/2023, 07/29/2022, Additional history [...] D LEVEL ONCE IN A LIFETIME-USE SMARTSET# 64455 Completed 08/28/2008, 04/07/2008, 12/04/2007 Pneumococcal Vaccine: 65+ [...] of this encounter Visit Diagnoses Diagnosis Bronchitis, complicated- Primary Bronchitis, not specified as acute or chronic Chronic cough Cough documented in this encounter Advance Directives * No Code Status (Latest Code Status on File) Date Activated Date Inactivated Comments 01/11/2005 2:56 PM 01/11/2005 3:56 PM Care Teams Summer School Coordinator Relationship Specialty Start Date End Date Pete Ambriz MD [address] [place] [address] PCP - General Internal Medicine 05/08/24 documented as of this encounter"
--- OUTSIDE RECORDS SUMMARY | 2024-10-24 23:44 | External Medical Summary | Summary of Care ---
Author Name Unknown Organization [facility] Address [address] [facility] [place] [address] Phone [phone] Care Team Providers Care Inventory Management Specialist Name Role Phone Pete Ambriz MD Primary Care Provider [phone] Reason for Visit * Reason Comments Cardiac Rehab Encounter Details Date Type Department Care Team (Late st Contact Info) Description 06/24/2024 8:00 AM EDT Telemedicine Cardiac Rehab [facility], Virtual [address] [place] [address] [place] [address] [facility], Virtual Cardiac Rehab [address] [place] [address] [place] [address] Aortocoronary bypass status* Allergies Active Allergy Reactions [...] on management encounter,Aortocoro nary bypass status,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),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 TAKE 1/2 [...] macular edema, left eye 12/28/2020 Atherosclerosis of [place] co ronary artery of [place] heart without angina pectoris 12/19/2019 Persistent atrial [...] Nummular eczema 09/06/2013 07/26/2021 [employer] Other*[id number] 02/03/2012 11/29/2016 Overview: Study Titile: Genomics Markers for Patients with Cardiovascular Disease Project # [id number] PI: Merary Rivera MD Please call [phone] with study related questions Irritable bowel syndrome 05/14/201001/2021 Type 2 diabetes mellitus wit h hemoglobin A1c goal of less than 7.0% 08/06/2009 01/08/2010 Overview: Modified per Diabetes protocol #14. ICD-10 update of inactive term ADVANCE DIRECTIVE INFORMATION 09/27/2007 07/26/2021 Overview: Yes-copy on file Carpal tunnel syndrome 04/14/200404/01 Atherosclerosis of [place] co ronary artery of [place] heart without angina pectoris 04/14/2004 Overview: Duplicate. [...] No 05/24/2024 Does the household have a [employer] [place] source of income? (Household - for ages [...] Hali De La Torre EPC - 07/04/2024 8:54 PM EDT Session Encounter: Patient is participating in [facility] Intensive Cardiac Rehab Program in partnership with [employer] is a specialized company that specializes in providing virtual cardiac rehab services. Session #18 completed. Please refer to scan document for session details. Session type: Education Individual Session duration: 35 minutes documented in this encounter Plan of Treatment Upcoming Encounters Date Type Department Care Team (Late st Contact Info) Description 07/05/2024 10:00 AM EDT Imaging Radiology [facility] [place] [address] 08/13/2024 11:00 AM EDT Anticoagulation Pharmacy, [place] [address] [facility] [place] [address] [place], [facility] [address] [facility], [place] [address] 09/02/2024 10:00 AM EST Office Visit Cardiology, [facility] [address] [facility] [place] [address] [place] Momin PA-C [address] [facility] [place] [address] 09/02/2024 10:00 AM EST Cardiac Studies Cardiology, [facility] [address] [facility] [place] [address] [facility] [place] [address] [facility] [place] [address] 09/23/2024 9:00 AM EST Office Visit Family Practice, [place] [address] [address] [facility] [address] Pete Ambriz MD [address] [facility] [address] 10/01/2024 10:00 AM EST Office Visit Pharmacy, [place] [address] [facility] [address] [facility] [address] [facility], [place] [address] 10/01/2024 10:30 AM EST Anticoagulation Pharmacy, [place] [address] [facility] [address] [facility] [address] [facility] [address] 05/14/2025 10:00 AM EDT Nurse Only Ancillary Department, [place] [address] [place] [address] [place], Nurse [facility] [address] [facility] [place] [address] Scheduled Procedures Name Priority Associated Diagnoses Date/Ti [...] Additional history exists CKD HGB USE SMARTSET 29824 01/28/202501/28, 01/29/2024, 12/27/2023, Additional history exists CKD PHOS USE SMARTSET 48713 01/28/2025 04/0 05/2024, 02/01/2023, 07/29/2022, Additional history [...] D LEVEL ONCE IN A LIFETIME-USE SMARTSET# [id number] Completed 07/03/2024, 08/28/2008, 04/07/2008, Additional history exists [...] 2:56 PM 01/11/2005 3:56 PM Care Teams Inventory Management Specialist Relationship Specialty Start Date End Date Pete Ambriz MD [address] [facility] [place] [address] PCP - General Internal Medicine 05/08/24 documented as of this encounter
--- OUTSIDE RECORDS SUMMARY | 2024-10-24 23:44 | External Medical Summary | Summary of Care ---
Author Name Unknown Organization [facility] Address [address] [facility] [address] Phone [phone] Care Team Providers Care Rn Women Services Name Role Phone Pete Ambriz MD Primary Care Provider [phone] Reason for Visit * Reason Comments eRx-Medication Refill Encounter Details Date Type Department Care Team (Late st Contact Info) Description 07/02/2024 Refill Pharmacy, [facility] [address] [facility] [place] [address] Laverne Becker, DO [address] [place] [address] Chronic pain syndrome Allergies Active Allergy Reactions Criticality Noted Date Comments Cephalexin Unknown 09/12/2002 Lisinopril 12/07/2018 Cough Oxycodone 12/04/2003 nausea, stomach pains Tetanus Toxoid 01/28/2009 Local reaction, fever documented as of this encounter (statuses as of 07/02/2024) Medications Medication Sig Dispensed Refills Start Date [...] by mouth in the morning. 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 TAKE 1/2 [...] MORNING 60 Capsule 5 07/02/20 24 Active DULoxetine HCl 30 MG Oral Capsule [...] as of this encounter (statuses as of 07/02/2024) Active Problems Problem Noted Date Diagnosed Date [...] macular edema, left eye 12/28/2020 Atherosclerosis of [place] co ronary artery of [place] heart without angina pectoris 12/19/2019 Persistent atrial fibrillation 11/28/2019 HTN, goal below 130/80 04/26/2019 Type 2 diabetes mellitus with diabetic neuropath y 02/11/2019 Chronic diarrhea 05/14/2010 Type 2 diabetes mellitus wit h hemoglobin A1c goal of 7.0%-8.0% 01/08/2010 Overview: ICD-10 update of inactive term DYSLIPIDEMIA, GOAL LDL BELOW 70 10/12/2009 Overview: Per Lipid Taxonomy. 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 Pulmonary hypertension DISH (diffuse idiopathic skeletal hyperostosis) documented as of this encounter (statuses as of 07/02/2024) Resolved Problems Problem Noted Date Diagnosed Date [...] Nummular eczema 09/06/2013 07/26/2021 [employer] Other*[id number] 02/03/2012 11/29/2016 Overview: Study Titile: [employer] Markers for Patients with Cardiovascular Disease Project # [id number] PI: Merary Rivera MD Please call [phone] with study related questions Irritable bowel syndrome 05/14/201001/2021 Type 2 diabetes mellitus wit h hemoglobin A1c goal of less than 7.0% 08/06/2009 01/08/2010 Overview: Modified per Diabetes protocol #14. ICD-10 update of inactive term ADVANCE DIRECTIVE INFORMATION 09/27/2007 07/26/2021 Overview: Yes-copy on file Carpal tunnel syndrome 04/14/200404/01 Atherosclerosis of [place] co ronary artery of [place] heart without angina pectoris 04/14/2004 Overview: Duplicate. [...] as of this encounter (statuses as of 07/02/2024) Immunizations Name Administration Dates Next Due COVID-19 [...] encounter Miscellaneous Notes * Telephone Encounter - Michael Huston [facility] - 07/02/2024 9:24 AM EDT Signed Prescriptions: Disp Refills DULoxetine HCl 30 MG Oral Capsule Delayed *60 Cap*5 Sig: TAKE 2 CAPS BY MOUTH ONCE DAILY IN THE MORNINGAuthorizing Provider: Devika AMBRIZ User: MICHAEL HUSTON documented in this encounter Plan of Treatment Upcoming Encounters Date Type Department Care Team (Late st Contact Info) Description 08/13/2024 11:00 AM EDT [facility], [place] [address] [address] [facility] [address] [facility] [address] [facility] [address] 09/02/2024 10:00 AM EST Office Visit Cardiology, [facility] [address] [place] [place] [address] [place] Momin PA-C [address] [place] [address] 09/02/2024 10:00 AM EST Cardiac Studies Cardiology, [facility] [address] [place] [address] [facility] [address] [place] [address] 09/23/2024 9:00 AM EST Office Visit Family Practice, [place] [address] [facility] [phone] Pete Ambriz MD [address] [facility] [address] 10/01/2024 10:00 AM EST Office Visit Pharmacy, [place] [address] [facility] [address] [facility] [address] [facility], [place] [address] 10/01/2024 10:30 AM EST Anticoagulation Pharmacy, [place] [address] [facility], [place] [address] [facility] [address] [facility], [place] [address] 05/14/2025 10:00 AM EDT Nurse Only Ancillary Department, [place] [address] [address] [facility], [place] [address] [place], Nurse Annual Wellness [address] [facility], [place] [address] Scheduled Procedures Name Priority Associated Diagnoses Date/Ti [...] 10/01/2019, Additional history exists GFR 11/24/2024 05/24/2024, 030 03/2024, 07/25/2023, Additional history exists HbA1c 11/24/2024 05/24/2024, 0405/2024, 07/25/2023, Additional history exists B-12 01/28/2025 01/29/2024, 01/21, 07/29/2022, Additional history exists CKD HGB USE SMARTSET 39597 01/28/202501/28, 01/29/2024, 12/27/2023, Additional history exists CKD PHOS USE SMARTSET 71189 01/28/2025 04/0 05/2024, 02/01/2023, 07/29/2022, Additional history [...] D LEVEL ONCE IN A LIFETIME-USE SMARTSET# 07855 Completed 08/28/2008, 04/07/2008, 12/04/2007 Pneumococcal Vaccine: 65+ [...] of this encounter Visit Diagnoses Diagnosis Chronic pain syndrome documented in this encounter Advance Directives * No Code Status (Latest Code Status on File) Date Activated Date Inactivated Comments 01/11/2005 2:56 PM 01/11/2005 3:56 PM Care Teams Rn Women Services Relationship Specialty Start Date End Date Pete Ambriz MD [address] [place] [facility] [place] [address] PCP - General Internal Medicine 05/08/24 documented as of this encounter
--- OUTSIDE RECORDS SUMMARY | 2024-10-24 23:44 | External Medical Summary ---
Author Name Unknown Address Unknown Organization K01:[facility] [place] [address] [place] [address] Laboratory Report Ordering Provider Test Date Status GIL MORALES 07/03/2024 12:46:15 Final Deficient: <20 ng/mL
Ins ufficient: 20-29 ng/mL
Recommended/Optimum:30-50 ng/mL

Vitamin D intoxication is rare. If suspicious of Vitamin D toxicity, evaluation of serum Calcium and PTH is recommended. Observation Date Value Abnormality Reference (Units ) Status 25-OH Vitamin D total 07/03/2024 12:46:15 79 >19 (ng/mL) Final Performing Location [facility] [place] [address] [place] [address]
--- OUTSIDE RECORDS SUMMARY | 2024-10-24 23:45 | External Medical Summary | Summary of Care ---
Author Name Unknown Organization [facility] Address [address] [facility] [place] [address] Phone [phone] Care Team Providers Care Pan Pusher Name Role Phone Pete Ambriz MD Primary Care Provider [phone] Reason for Visit * Reason Comments Cardiac Rehab Encounter Details Date Type Department Care Team (Late st Contact Info) Description 06/20/2024 8:00 AM EDT Telemedicine Cardiac Rehab [facility], Virtual [address] [place] [address] [place] [address] [facility], [facility] Cardiac Re[facility] [address] [place] [address] [place] [address] Aortocoronary bypass status* Allergies Active Allergy Reactions Criticality Noted Date Comments Cephalexin Unknown 09/12/2002 Lisinopril 12/07/2018 Cough Oxycodone 12/04/2003 nausea, stomach pains Tetanus Toxoid 01/28/2009 Local reaction, fever documented as of this encounter (statuses as of 06/27/2024) Medications Medication Sig Dispensed Refills Start Date [...] management encounter,Aortocoro nary bypass status,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),senior care current use [...] as of this encounter (statuses as of 06/27/2024) Active Problems Problem Noted Date Diagnosed Date [...] macular edema, left eye 12/28/2020 Atherosclerosis of [place] co ronary artery of [place] heart without angina pectoris 12/19/2019 Persistent atrial fibrillation 11/28/2019 HTN, goal below 130/80 04/26/2019 Type 2 diabetes mellitus with diabetic neuropath y 02/11/2019 Chronic diarrhea 05/14/2010 Type 2 diabetes mellitus wit h hemoglobin A1c goal of 7.0%-8.0% 01/08/2010 Overview: ICD-10 update of inactive term DYSLIPIDEMIA, GOAL LDL BELOW 70 10/12/2009 Overview: Per Lipid Taxonomy. 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 Pulmonary hypertension DISH (diffuse idiopathic skeletal hyperostosis) documented as of this encounter (statuses as of 06/27/2024) Resolved Problems Problem Noted Date Diagnosed Date [...] Nummular eczema 09/06/2013 07/26/2021 [employer] Other*[id number] 02/03/2012 11/29/2016 Overview: Study Titile: [employer] Markers for Patients with Cardiovascular Disease Project # [id number] PI: Merary Rivera MD Please call [phone] with study related questions Irritable bowel syndrome 05/14/201001/2021 Type 2 diabetes mellitus wit h hemoglobin A1c goal of less than 7.0% 08/06/2009 01/08/2010 Overview: Modified per Diabetes protocol #14. ICD-10 update of inactive term ADVANCE DIRECTIVE INFORMATION 09/27/2007 07/26/2021 Overview: Yes-copy on file Carpal tunnel syndrome 04/14/200404/01 Atherosclerosis of [place] co ronary artery of [place] heart without angina pectoris 04/14/2004 Overview: Duplicate. DM type 2, not at goal 04/14/200408/06 Overview: Modified per Diabetes protocol #14. Dyslipidemia, goal to be determined 04/14/2004 10/12/2009 Overview: Per Lipid Taxonomy. 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 10/17/2002 01/06/20 20 Overview: More specific code in use. 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 09/09/2002 02/06/20 08 Anticoagulation management encounter 09/09/2002 07/26/2021 PURE [...] as of this encounter (statuses as of 06/27/2024) Immunizations Name Administration Dates Next Due COVID-19 [...] * Hali De La Torre [facility] - 06/27/2024 7:17 PM EDT Session Encounter: Patient is participating [facility] in partnership with [facility].[employer] [facility] is a specialized [email or web address] that specializes in providing virtual cardiac rehab services. Session #15 completed. Please refer to scan document for session details. Session type: Exercise Group Session duration: 60 minutes documented in this encounter Plan of Treatment Upcoming Encounters Date Type Department Care Team (Late st Contact Info) Description 07/01/2024 1:30 PM EDT Office Visit Pharmacy, [place] [address] [facility], [place] [address] [facility] [address] [facility], [place] [address] 07/01/2024 1:40 PM EDT Anticoagulation Pharmacy, [place] [address] [facility], [place] [address] [facility] [address] [facility], [place] [address] 09/02/2024 10:00 AM EST Office Visit Cardiology, [facility] [address] [place] [address] [place] [facility] [address] 09/02/2024 10:00 AM EST Cardiac Studies Cardiology, [facility] [address] [facility] [address] Sunil Pacer [facility] [place] [address] 09/23/2024 9:00 AM EST Office Visit Family Practice, [place] [address] [facility], [place] [address] Pete Ambriz MD [address] [facility] [address] 05/14/2025 10:00 AM EDT Nurse Only Ancillary Department, [place] [address] [address] [facility] [address] [place], Nurse Annual Wellness [address] [place] [address] Scheduled Procedures Name Priority Associated Diagnoses Date/Ti [...] Additional history exists CKD HGB USE SMARTSET 65955 01/28/202501/28, 01/29/2024, 12/27/2023, Additional history exists CKD PHOS USE SMARTSET 90175 01/28/2025 04/0 05/2024, 02/01/2023, 07/29/2022, Additional history [...] D LEVEL ONCE IN A LIFETIME-USE SMARTSET# [id number] Completed 08/28/2008, 04/07/2008, 12/04/2007 Pneumococcal Vaccine: 65+ [...] 2:56 PM 01/11/2005 3:56 PM Care Teams Pan Pusher Relationship Specialty Start Date End Date Pete Ambriz MD [address] [place] [address] PCP - General Internal Medicine 05/08/24 documented as of this encounter
--- OUTSIDE RECORDS SUMMARY | 2024-10-24 23:45 | External Medical Summary | Summary of Care ---
Author Name Unknown Organization [facility] Address [address] [facility] [address] Phone [phone] Care Team Providers Care Rn Enterostomal Name Role Phone Pete Ambriz MD Primary Care Provider [phone] Reason for Visit * Reason Onset Date Comments Medication Pre-auth 06/26/2024 Reclast Encounter Details Date Type Department Care Team (Late st Contact Info) Description 06/26/2024 Telephone Hematology/Oncology Treatment, [place] [address] [place] [address] Jairo Owen [facility] [address] [place] [address] Medication Pre-auth (Reclast) Allergies Active Allergy Reactions Criticality Noted Date Comments Cephalexin Unknown 09/12/2002 Lisinopril 12/07/2018 Cough Oxycodone 12/04/2003 nausea, stomach pains Tetanus Toxoid 01/28/2009 Local reaction, fever documented as of this encounter (statuses as of 06/26/2024) Medications Medication Sig Dispensed Refills Start Date [...] on management encounter,Aortocoro nary bypass status,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),care home current use of anticoagulant therapy TAKE [...] as of this encounter (statuses as of 06/26/2024) Active Problems Problem Noted Date Diagnosed Date [...] macular edema, left eye 12/28/2020 Atherosclerosis of [place] co ronary artery of [place] heart without angina pectoris 12/19/2019 Persistent atrial fibrillation 11/28/2019 HTN, goal below 130/80 04/26/2019 Type 2 diabetes mellitus with diabetic neuropath y 02/11/2019 Chronic diarrhea 05/14/2010 Type 2 diabetes mellitus wit h hemoglobin A1c goal of 7.0%-8.0% 01/08/2010 Overview: ICD-10 update of inactive term DYSLIPIDEMIA, GOAL LDL BELOW 70 10/12/2009 Overview: Per Lipid Taxonomy. 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 Pulmonary hypertension DISH (diffuse idiopathic skeletal hyperostosis) documented as of this encounter (statuses as of 06/26/2024) Resolved Problems Problem Noted Date Diagnosed Date [...] Nummular eczema 09/06/2013 07/26/2021 [employer] Other*[id number] 02/03/2012 11/29/2016 Overview: Study Titile: [employer] Markers for Patients with Cardiovascular Disease Project # [id number] PI: Merary Rivera MD Please call [phone] with study related questions Irritable bowel syndrome 05/14/201001/2021 Type 2 diabetes mellitus wit h hemoglobin A1c goal of less than 7.0% 08/06/2009 01/08/2010 Overview: Modified per Diabetes protocol #14. ICD-10 update of inactive term ADVANCE DIRECTIVE INFORMATION 09/27/2007 07/26/2021 Overview: Yes-copy on file Carpal tunnel syndrome 04/14/200404/01 Atherosclerosis of [place] co ronary artery of [place] heart without angina pectoris 04/14/2004 Overview: Duplicate. [...] as of this encounter (statuses as of 06/26/2024) Immunizations Name Administration Dates Next Due COVID-19 [...] 12:04 PM EDT Order received for Reclast [place] plan built and routed to provider Awaiting provider signature, prior authorization, and completed lab results before scheduling patient. documented in this encounter Plan of Treatment Upcoming Encounters Date Type Department Care Team (Late st Contact Info) Description 07/01/2024 1:30 PM EDT [facility]acy, [place] [address] [facility] [address] [place] [address] [address] [facility], [place] [address] 07/01/2024 1:40 PM EDT Anticoagulation Pharmacy, [place] [address] [address] [facility] [address] [facility] [address] [place] [facility] [address] 09/02/2024 10:00 AM EST Office Visit Cardiology, [facility] [address] [facility] [place] [address] [place] Momin PA-C [address] [facility] [place] [address] 09/02/2024 10:00 AM EST Cardiac Studies Cardiology, [facility] [address] [facility] [place] [address] Billy Barber [facility] 132 [facility] [place] [address] 09/23/2024 9:00 AM EST Office Visit Family [facility], [place] [address] [address] [facility] [phone] Pete Ambriz MD [address] [facility] [address] 05/14/2025 10:00 AM EDT Nurse Only Ancillary Department, [place] [address] [place] [address] [place], Nurse Annual Wellness [address] [facility] [place] [address] Scheduled Procedures Name Priority Associated Diagnoses Date/Ti [...] Additional history exists CKD HGB USE SMARTSET 27508 01/28/202501/28, 01/29/2024, 12/27/2023, Additional history exists CKD PHOS USE SMARTSET 56024 01/28/2025 04/0 05/2024, 02/01/2023, 07/29/2022, Additional history [...] D LEVEL ONCE IN A LIFETIME-USE SMARTSET# 80705 Completed 08/28/2008, 04/07/2008, 12/04/2007 Pneumococcal Vaccine: 65+ [...] PM 01/11/2005 3:56 PM Care Teams Rn Enterostomal Relationship Specialty Start Date End Date Pete Ambriz MD [address] [place] [address] PCP - General Internal Medicine 05/08/24 documented as of this encounter
--- OUTSIDE RECORDS SUMMARY | 2024-10-24 23:45 | External Medical Summary | Summary of Care ---
Author Name Unknown Organization [facility] Address [address] [facility] [address] Phone [phone] Care Team Providers Care Stripper Shovel Operator Name Role Phone Pete Ambriz MD Primary Care Provider [phone] Reason for Visit * Reason Onset Date Comments Medication Pre-auth 06/26/2024 Reclast Encounter Details Date Type Department Care Team (Late st Contact Info) Description 06/26/2024 Telephone Hematology/Oncology Treatment, [place] [address] [place] [address] Jairo Owen PA-C [facility] [place] [address] Medication Pre-auth (Reclast) Allergies Active Allergy [...] macular edema, left eye 12/28/2020 Atherosclerosis of [place] co ronary artery of [place] heart without angina pectoris 12/19/2019 Persistent atrial [...] Nummular eczema 09/06/2013 07/26/2021 [employer] Other*[id number] 02/03/2012 11/29/2016 Overview: Study Titile: [employer] Markers for Patients with Cardiovascular Disease Project # [id number] PI: Merary Rivera MD Please call [phone] with study related questions Irritable bowel syndrome 05/14/201001/2021 Type 2 diabetes mellitus wit h hemoglobin A1c goal of less than 7.0% 08/06/2009 01/08/2010 Overview: Modified per Diabetes protocol #14. ICD-10 update of inactive term ADVANCE DIRECTIVE INFORMATION 09/27/2007 07/26/2021 Overview: Yes-copy on file Carpal tunnel syndrome 04/14/200404/01 Atherosclerosis of [place] co ronary artery of [place] heart without angina pectoris 04/14/2004 Overview: Duplicate. [...] encounter Miscellaneous Notes * Telephone Encounter - Mercedes Beck LPN [...] 12:04 PM EDT Order received for Reclast [place] plan built and routed to provider Awaiting provider signature, prior authorization, and completed lab results before scheduling patient. documented in this encounter Plan of Treatment Upcoming Encounters Date Type Department Care Team (Late st Contact Info) Description 07/01/2024 1:30 PM EDT Office [address]acy, [address] [address] [place] [facility] [address] 07/01/2024 1:40 PM EDT Anticoagulation Pharmacy, [address] [address] [place], [address] [address] [address] 09/02/2024 10:00 AM EST Office Visit Cardiology, [facility] 132 [facility] [place] [place] Momin PA-C [address] [place] [address] 09/02/2024 10:00 AM EST Cardiac Studies Cardiology, [facility] [address] [place] [address] [facility] [address] [place] [address] 09/23/2024 9:00 AM EST Office Visit Family Practice, [place] [address] [place] [facility] [place] [phone] Pete Ambriz MD [address] [place] [address] 05/14/2025 10:00 AM EDT Nurse Only Ancillary Department, [place] [address] [place] [facility] [place] [address] [place], Nurse Annual Wellness [address] [place] [address] Scheduled Procedures Name Priority Associated Diagnoses Date/Ti [...] Additional history exists CKD HGB USE SMARTSET 40020 01/28/202501/28, 01/29/2024, 12/27/2023, Additional history exists CKD PHOS USE SMARTSET 99427 01/28/2025 04/0 05/2024, 02/01/2023, 07/29/2022, Additional history [...] D LEVEL ONCE IN A LIFETIME-USE SMARTSET# 51502 Completed 08/28/2008, 04/07/2008, 12/04/2007 Pneumococcal Vaccine: 65+ [...] 2:56 PM 01/11/2005 3:56 PM Care Teams Stripper Shovel Operator Relationship Specialty Start Date End Date Pete Ambriz MD [address] [place] [address] PCP - General Internal Medicine 05/08/24 documented as of this encounter
--- OUTSIDE RECORDS SUMMARY | 2024-10-24 23:45 | External Medical Summary | Summary of Care ---
Author Name Unknown Organization [facility] Address [address] [facility] [place] [address] Phone [phone] Care Team Providers Care Degreaser Operator Name Role Phone Pete Ambriz MD Primary Care Provider [phone] Reason for Visit * Reason Comments Cardiac Rehab Encounter Details Date Type Department Care Team (Late st Contact Info) Description 06/17/2024 9:00 AM EDT Telemedicine Cardiac Rehab Advanced, Virtual [address] [place] [address] [place] [address] Advanced, Virtual Cardiac Rehab [address] [place] [address] [place] [address] Aortocoronary bypass status* Allergies Active Allergy Reactions [...] on management encounter,Aortocoro nary bypass status,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),retirement current use of [...] macular edema, left eye 12/28/2020 Atherosclerosis of [place] co ronary artery of [place] heart without angina pectoris 12/19/2019 Persistent atrial [...] Nummular eczema 09/06/2013 07/26/2021 [employer] Other*[id number] 02/03/2012 11/29/2016 Overview: Study Titile: Genomics Markers for Patients with Cardiovascular Disease Project # [id number] PI: Merary Rivera MD Please call [phone] with study related questions Irritable bowel syndrome 05/14/201001/2021 Type 2 diabetes mellitus wit h hemoglobin A1c goal of less than 7.0% 08/06/2009 01/08/2010 Overview: Modified per Diabetes protocol #14. ICD-10 update of inactive term ADVANCE DIRECTIVE INFORMATION 09/27/2007 07/26/2021 Overview: Yes-copy on file Carpal tunnel syndrome 04/14/200404/01 Atherosclerosis of [place] co ronary artery of [place] heart without angina pectoris 04/14/2004 Overview: Duplicate. [...] Hali De La Torre EPC - 06/27/2024 7:14 PM EDT Session Encounter: Patient is participating in [facility] in partnership with [employer] is a specialized [employer] that specializes in providing virtual cardiac rehab services. Session #11 completed. Please refer to scan document for session details. Session type: Exercise Individual Session duration: 35 minutes documented in this encounter Plan of Treatment Upcoming Encounters Date Type Department Care Team (Late st Contact Info) Description 07/01/2024 1:30 PM EDT Office Visit Pharmacy, [place] [address] [facility], [place] [address] [facility] [address] [facility], [place] [address] 07/01/2024 1:40 PM EDT Anticoagulation Pharmacy, [place] [address] [facility], [place] [address] [facility] [address] [facility], [place] [address] 09/02/2024 10:00 AM EST Office Visit Cardiology, [facility] [address] [place] [facility] [address] 09/02/2024 10:00 AM EST Cardiac Studies Cardiology, [facility] [address] Sunil Pacer [facility] [address] 09/23/2024 9:00 AM EST Office Visit Family Practice, [place] [address] [facility], [place] [address] Pete Ambriz [facility] [address] [facility] [address] 05/14/2025 10:00 AM EDT Nurse Only Ancillary Department, [place] [address] [facility] [address] [place], Nurse Annual Wellness [address] [place] [address] Scheduled Procedures Name Priority Associated Diagnoses Date/Ti [...] Additional history exists CKD HGB USE SMARTSET 00092 01/28/202501/28, 01/29/2024, 12/27/2023, Additional history exists CKD PHOS USE SMARTSET 88408 01/28/2025 04/0 05/2024, 02/01/2023, 07/29/2022, Additional history [...] D LEVEL ONCE IN A LIFETIME-USE SMARTSET# 42570 Completed 08/28/2008, 04/07/2008, 12/04/2007 Pneumococcal Vaccine: 65+ [...] 2:56 PM 01/11/2005 3:56 PM Care Teams Degreaser Operator Relationship Specialty Start Date End Date Pete Ambriz MD [address] [place] [address] PCP - General Internal Medicine 05/08/24 documented as of this encounter
--- OUTSIDE RECORDS SUMMARY | 2024-10-24 23:45 | External Medical Summary | Summary of Care ---
Author Name Unknown Organization [facility] Address [address] [facility] [place] [address] Phone [phone] Care Team Providers Care Superintendent Sales Name Role Phone Pete Ambriz MD Primary Care Provider [phone] Reason for Visit * Reason Comments Cardiac Rehab Encounter Details Date Type Department Care Team (Late st Contact Info) Description 06/19/2024 10:00 AM EDT Telemedicine Cardiac Rehab Advanced, Virtual [address] [place] [address] [place] [address] Advanced, Virtual Cardiac Rehab [address] [place] [address] [place] [address] Aortocoronary bypass status* Allergies Active Allergy Reactions [...] on management encounter,Aortocoro nary bypass status,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),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 [...] macular edema, left eye 12/28/2020 Atherosclerosis of [place] co ronary artery of [place] heart without angina pectoris 12/19/2019 Persistent atrial [...] Nummular eczema 09/06/2013 07/26/2021 [employer] Other*[id number] 02/03/2012 11/29/2016 Overview: Study Titile: Genomics Markers for Patients with Cardiovascular Disease Project # [id number] PI: Merary Rivera MD Please call [phone] with study related questions Irritable bowel syndrome 05/14/201001/2021 Type 2 diabetes mellitus wit h hemoglobin A1c goal of less than 7.0% 08/06/2009 01/08/2010 Overview: Modified per Diabetes protocol #14. ICD-10 update of inactive term ADVANCE DIRECTIVE INFORMATION 09/27/2007 07/26/2021 Overview: Yes-copy on file Carpal tunnel syndrome 04/14/200404/01 Atherosclerosis of [place] co ronary artery of [place] heart without angina pectoris 04/14/2004 Overview: Duplicate. [...] Hali De La Torre EPC - 06/27/2024 7:16 PM EDT Session Encounter: Patient is participating in [facility] in partnership with [employer] is a specialized [employer] that specializes in providing virtual cardiac rehab services. Session #14 completed. Please refer to scan document for session details. Session type: Education Individual Session duration: 60 minutes documented in this encounter Plan of Treatment Upcoming Encounters Date Type Department Care Team (Late st Contact Info) Description 07/01/2024 1:30 PM EDT Office Visit Pharmacy, [place] [address] [facility], [place] [address] [facility] [address] [facility], [place] [address] 07/01/2024 1:40 PM EDT Anticoagulation Pharmacy, [place] [address] [facility], [place] [address] [facility] [address] [facility], [place] [address] 09/02/2024 10:00 AM EST Office Visit Cardiology, [facility] [address] [place] [address] 09/02/2024 10:00 AM EST Cardiac Studies Cardiology, [facility] 132 [facility] [address] Sunil Pacer [facility] [address] 09/23/2024 9:00 AM EST Office Visit Family Practice, [place] [address] [facility], [place] [address] Pete Ambriz MD [address] [facility] [address] 05/14/2025 10:00 AM EDT Nurse Only Ancillary Department, [place] [address] [address] [facility] [address] [place], Nurse Annual Wellness [address] [place] [address] Scheduled Procedures Name Priority Associated Diagnoses Date/Ti [...] Additional history exists CKD HGB USE SMARTSET 59146 01/28/202501/28, 01/29/2024, 12/27/2023, Additional history exists CKD PHOS USE SMARTSET 16436 01/28/2025 04/0 05/2024, 02/01/2023, 07/29/2022, Additional history [...] D LEVEL ONCE IN A LIFETIME-USE SMARTSET# 27353 Completed 08/28/2008, 04/07/2008, 12/04/2007 Pneumococcal Vaccine: 65+ [...] 2:56 PM 01/11/2005 3:56 PM Care Teams Superintendent Sales Relationship Specialty Start Date End Date Pete Ambriz MD [address] [place] [address] PCP - General Internal Medicine 05/08/24 documented as of this encounter
--- OUTSIDE RECORDS SUMMARY | 2024-10-24 23:45 | External Medical Summary | Summary of Care ---
Author Name Unknown Organization [facility] Address [address] [facility] [place] [address] Phone [phone] Care Team Providers Care Furnace Liner Name Role Phone Pete Ambriz MD Primary Care Provider [phone] Reason for Visit * Reason Comments Cardiac Rehab Encounter Details Date Type Department Care Team (Late st Contact Info) Description 06/19/2024 9:00 AM EDT Telemedicine Cardiac Rehab Advanced, Virtual [address] [place] [address] [place] [address] Advanced, Virtual Cardiac Rehab [address] [place] [address] [place] [address] Aortocoronary bypass status* Allergies Active Allergy Reactions [...] macular edema, left eye 12/28/2020 Atherosclerosis of [place] co ronary artery of [place] heart without angina pectoris 12/19/2019 Persistent atrial [...] Nummular eczema 09/06/2013 07/26/2021 [employer] Other*[id number] 02/03/2012 11/29/2016 Overview: Study Titile: Genomics Markers for Patients with Cardiovascular Disease Project # [id number] PI: Merary Rivera MD Please call [phone] with study related questions Irritable bowel syndrome 05/14/201001/2021 Type 2 diabetes mellitus wit h hemoglobin A1c goal of less than 7.0% 08/06/2009 01/08/2010 Overview: Modified per Diabetes protocol #14. ICD-10 update of inactive term ADVANCE DIRECTIVE INFORMATION 09/27/2007 07/26/2021 Overview: Yes-copy on file Carpal tunnel syndrome 04/14/200404/01 Atherosclerosis of [place] co ronary artery of [place] heart without angina pectoris 04/14/2004 Overview: Duplicate. [...] Hali De La Torre EPC - 06/27/2024 7:15 PM EDT Session Encounter: Patient is participating in [facility] Int[facility] in partnership with [employer] is a specialized [employer] that specializes in providing virtual cardiac rehab services. Session #13 completed. Please refer to scan document for session details. Session type: Education Individual Session duration: 35 minutes documented in this encounter Plan of Treatment Upcoming Encounters Date Type Department Care Team (Late st Contact Info) Description 07/01/2024 1:30 PM EDT Office Visit Pharmacy, [place] [address] [facility], [place] [address] [facility] [address] [facility], [place] [address] 07/01/2024 1:40 PM EDT Anticoagulation Pharmacy, [place] [address] [facility], [place] [address] [facility] [address] [facility], [place] [address] 09/02/2024 10:00 AM EST Office Visit Cardiology, [facility] [place] [address] [place] [facility] [address] 09/02/2024 10:00 AM EST Cardiac Studies Cardiology, [facility] [address] [facility] [address] Sunil Pacer [facility] 132 [facility] [address] 09/23/2024 9:00 AM EST Office Visit Family Practice, [place] [address] [facility], [place] [address] Pete Ambriz MD [address] [facility] [address] 05/14/2025 10:00 AM EDT Nurse Only Ancillary Department, [place] [address] [facility] [address] [place], Nurse Annual Wellness [address] [place] [address] Scheduled Procedures Name Priority Associated Diagnoses Date/Ti [...] Additional history exists CKD HGB USE SMARTSET 80457 01/28/202501/28, 01/29/2024, 12/27/2023, Additional history exists CKD PHOS USE SMARTSET 65501 01/28/2025 04/0 05/2024, 02/01/2023, 07/29/2022, Additional history [...] D LEVEL ONCE IN A LIFETIME-USE SMARTSET# 05320 Completed 08/28/2008, 04/07/2008, 12/04/2007 Pneumococcal Vaccine: 65+ [...] 2:56 PM 01/11/2005 3:56 PM Care Teams Furnace Liner Relationship Specialty Start Date End Date Pete Ambriz MD [address] [place] [address] PCP - General Internal Medicine 05/08/24 documented as of this encounter
--- OUTSIDE RECORDS SUMMARY | 2024-10-24 23:45 | External Medical Summary | Summary of Care ---
Author Name Unknown Organization [facility] Address [address] [facility] [place] [address] Phone [phone] Care Team Providers Care Pharmacy Operations Specialist Name Role Phone Pete Ambriz MD Primary Care Provider [phone] Reason for Visit * Reason Comments Cardiac Rehab Encounter Details Date Type Department Care Team (Late st Contact Info) Description 06/20/2024 9:00 AM EDT Telemedicine Cardiac Rehab Advanced, Virtual [address] [place] [address] [place] [address] Advanced, Virtual Cardiac Rehab [address] [place] [address] [place] [address] Aortocoronary bypass status* Allergies Active Allergy Reactions [...] macular edema, left eye 12/28/2020 Atherosclerosis of [place] co ronary artery of [place] heart without angina pectoris 12/19/2019 Persistent [...] Nummular eczema 09/06/2013 07/26/2021 [employer] Other*[id number] 02/03/2012 11/29/2016 Overview: Study Titile: Genomics Markers for Patients with Cardiovascular Disease Project # [id number] PI: Merary Rivera MD Please call [phone] with study related questions Irritable bowel syndrome 05/14/201001/2021 Type 2 diabetes mellitus wit h hemoglobin A1c goal of less than 7.0% 08/06/2009 01/08/2010 Overview: Modified per Diabetes protocol #14. ICD-10 update of inactive term ADVANCE DIRECTIVE INFORMATION 09/27/2007 07/26/2021 Overview: Yes-copy on file Carpal tunnel syndrome 04/14/200404/01 Atherosclerosis of [place] co ronary artery of [place] heart without angina pectoris 04/14/2004 Overview: Duplicate. [...] Hali De La Torre EPC - 06/27/2024 7:18 PM EDT Session Encounter: Patient is participating in [facility] in partnership with [employer] is a specialized [employer] that specializes in providing virtual cardiac rehab services. Session #16 completed. Please refer to scan document for session details. Session type: Exercise Group Session duration: 60 minutes documented in this encounter Plan of Treatment Upcoming Encounters Date Type Department Care Team (Late st Contact Info) Description 07/01/2024 1:30 PM EDT Office Visit Pharmacy, [place] [address] [facility], [place] [address] [facility] [address] [facility], [place] [address] 07/01/2024 1:40 PM EDT Anticoagulation Pharmacy, [place] [address] [facility], [place] [address] [facility] [address] [facility], [place] [address] 09/02/2024 10:00 AM EST Office Visit Cardiology, [facility] 132 [facility] [address] [place] [address] [facility] [address] 09/02/2024 10:00 AM EST Cardiac Studies Cardiology, [facility] 132 [facility] [address] Sunil Pacer [facility] 132 [facility] [address] 09/23/2024 9:00 AM EST Office Visit Family Practice, [place] [address] [facility], [place] [address] Pete Ambriz MD [address] [facility] [address] 05/14/2025 10:00 AM EDT Nurse Only Ancillary Department, [place] [address] [facility] [address] [place], Nurse Annual Wellness [address] [place] [address] Scheduled Procedures Name Priority Associated Diagnoses Date/Ti [...] Additional history exists CKD HGB USE SMARTSET 10304 01/28/202501/28, 01/29/2024, 12/27/2023, Additional history exists CKD PHOS USE SMARTSET 15132 01/28/2025 04/0 05/2024, 02/01/2023, 07/29/2022, Additional history [...] D LEVEL ONCE IN A LIFETIME-USE SMARTSET# 68360 Completed 08/28/2008, 04/07/2008, 12/04/2007 Pneumococcal Vaccine: 65+ [...] PM 01/11/2005 3:56 PM Care Teams Pharmacy Operations Specialist Relationship Specialty Start Date End Date Pete Ambriz MD [address] [place] [address] PCP - General Internal Medicine 05/08/24 documented as of this encounter
--- OUTSIDE RECORDS SUMMARY | 2024-10-24 23:45 | External Medical Summary | Summary of Care ---
Author Name Unknown Organization [facility] Address [address] [facility] [place] [address] Phone [phone] Care Team Providers Care Cognos Lead Name Role Phone Pete Ambriz MD Primary Care Provider [phone] Reason for Visit * Reason Comments Cardiac Rehab Encounter Details Date Type Department Care Team (Late st Contact Info) Description 06/21/2024 9:00 AM EDT Telemedicine Cardiac Rehab Advanced, Virtual [address] [place] [address] [place] [address] Advanced, Virtual Cardiac Rehab [address] [place] [address] [place] [address] Aortocoronary bypass status* Allergies Active Allergy Reactions [...] on management encounter,Aortocoro nary bypass status,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),halfway current use of anticoagulant therapy TAKE 1/2 [...] Lipid Taxonomy. 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 ICD-10 update of inactive term ADVANCE DIRECTIVE INFORMATION 09/27/2007 07/26/2021 Overview: Yes-copy on file Carpal tunnel syndrome 04/14/200404/[address] [place] co ronary artery of [place] heart without angina pectoris 04/14/2004 Overview: Duplicate. [...] EDT Session Encounter: Patient is participating in [facility] Int[facility] in partnership with [employer] is a specialized [employer] that specializes in providing virtual cardiac rehab services. Session #17 completed. Please refer to scan document for session details. Session type: Exercise Individual Session duration: 35 minutes documented in this encounter Plan of Treatment Upcoming Encounters Date Type Department Care Team (Late st Contact Info) Description 07/01/2024 1:30 PM EDT Office Visit Pharmacy, [place] [address] [facility], [place] [address] [facility] [address] [facility], [place] [address] 07/01/2024 1:40 PM EDT Anticoagulation Pharmacy, [place] [address] [facility], [place] [address] [facility] [address] [facility], [place] [address] 09/02/2024 10:00 AM EST Office Visit Cardiology, [facility] 132 [facility] [address] [place] [address] [facility] [address] 09/02/2024 10:00 AM EST Cardiac Studies Cardiology, [facility] 132 [facility] [address] Sunil Pacer [facility] 132 [facility] [address] 09/23/2024 9:00 AM EST Office Visit Family Practice, [place] [address] [facility], [place] [address] Pete Ambriz MD [address] [facility] [address] 05/14/2025 10:00 AM EDT Nurse Only Ancillary Department, [place] [address] [address] [facility] [address] [place], Nurse Annual Wellness [address] [place] [address] Scheduled Procedures Name Priority Associated Diagnoses Date/Ti [...] Additional history exists CKD HGB USE SMARTSET 06753 01/28/202501/28, 01/29/2024, 12/27/2023, Additional history exists CKD PHOS USE SMARTSET 40805 01/28/2025 04/0 05/2024, 02/01/2023, 07/29/2022, Additional history [...] D LEVEL ONCE IN A LIFETIME-USE SMARTSET# 19414 Completed 08/28/2008, 04/07/2008, 12/04/2007 Pneumococcal Vaccine: 65+ [...] 2:56 PM 01/11/2005 3:56 PM Care Teams Cognos Lead Relationship Specialty Start Date End Date Pete Ambriz MD [address] [place] [address] PCP - General Internal Medicine 05/08/24 documented as of this encounter
--- OUTSIDE RECORDS SUMMARY | 2024-10-24 23:45 | External Medical Summary | Summary of Care ---
Author Name Unknown Organization [facility] Address [address] [facility] [address] Phone [phone] Care Team Providers Care Assistant Curator Name Role Phone Pete Ambriz MD Primary Care Provider [phone] Reason for Visit * Reason Onset Date Comments Medication Pre-auth 06/26/2024 Reclast Encounter Details Date Type Department Care Team (Late st Contact Info) Description 06/26/2024 Telephone Hematology/Oncology Treatment, [place] [address] [place] [address] Jairo Owen PA-C [facility] [place] [address] Medication Pre-auth (Reclast) Allergies Active Allergy [...] macular edema, left eye 12/28/2020 Atherosclerosis of [place] co ronary artery of [place] heart without angina pectoris 12/19/2019 Persistent atrial [...] Nummular eczema 09/06/2013 07/26/2021 [employer] Other*[id number] 02/03/2012 11/29/2016 Overview: Study Titile: Genomics Markers for Patients with Cardiovascular Disease Project # [id number] PI: Merary Rivera MD Please call [phone] with study related questions Irritable bowel syndrome 05/14/201001/2021 Type 2 diabetes mellitus wit h hemoglobin A1c goal of less than 7.0% 08/06/2009 01/08/2010 Overview: Modified per Diabetes protocol #14. ICD-10 update of inactive term ADVANCE DIRECTIVE INFORMATION 09/27/2007 07/26/2021 Overview: Yes-copy on file Carpal tunnel syndrome 04/14/200404/01 Atherosclerosis of [place] ronary artery of [place] heart without angina pectoris 04/14/2004 Overview: Duplicate. [...] mRNA, LNP-s, No Pre serve, 2-Dose Series ([employer]) 06/22/2021,05/08/2021 Pneumococcal Conjugate Vacc, 13 Valent (Prevnar) [...] No 05/24/2024 Does the household have a [facility] source of income? (Household - for [...] 12:04 PM EDT Order received for Reclast [place] plan built and routed to provider Awaiting provider signature, prior authorization, and completed lab results before scheduling patient. documented in this encounter Plan of Treatment Upcoming Encounters Date Type Department Care Team (Late st Contact Info) Description 07/01/2024 1:30 PM EDT Office Visit Pharmacy, [place] [address] [facility], [place] [address] [facility] [address] [facility], [place] [address] 07/01/2024 1:40 PM EDT Anticoagulation Pharmacy, [place] [address] [facility], [place] [address] [facility] [address] [facility], [place] [address] 09/02/2024 10:00 AM EST Office Visit Cardiology, [facility] [address] [place] Momin PA-C [address] [facility] [place] [address] 09/02/2024 10:00 AM EST Cardiac Studies Cardiology, [facility] [address] [facility] [address] [place], [facility] [address] 09/23/2024 9:00 AM EST Office Visit [facility], [place] [address] [facility] [address] Pete Ambriz MD [address] [facility] [address] 05/14/2025 10:00 AM EDT Nurse Only Ancillary Department, [place] [address] [facility] [address] [place], Nurse [facility] [address] [facility] [id number] Scheduled Procedures Name Priority Associated Diagnoses Date/Ti [...] Additional history exists CKD HGB USE SMARTSET 65314 01/28/202501/28, 01/29/2024, 12/27/2023, Additional history exists CKD PHOS USE SMARTSET 53971 01/28/2025 04/0 05/2024, 02/01/2023, 07/29/2022, Additional history [...] D LEVEL ONCE IN A LIFETIME-USE SMARTSET# 94205 Completed 08/28/2008, 04/07/2008, 12/04/2007 Pneumococcal Vaccine: 65+ [...] PM 01/11/2005 3:56 PM Care Teams Assistant Curator Relationship Specialty Start Date End Date Pete Ambriz MD [address] [place] [address] PCP - General Internal Medicine 05/08/24 documented as of this encounter
--- OUTSIDE RECORDS SUMMARY | 2024-10-24 23:45 | External Medical Summary | Summary of Care ---
Author Name Unknown Organization [facility] Address [address] [facility] [place] [address] Phone [phone] Care Team Providers Care Model Maker [employer] Name Role Phone Pete Ambriz MD Primary Care Provider [phone] Reason for Visit * Reason Comments Cardiac Rehab Encounter Details Date Type Department Care Team (Late st Contact Info) Description 06/18/2024 8:00 AM EDT Telemedicine Cardiac Rehab [facility], [facility] [address] [place] [address] [place] [address] [facility], [facility] [address] [place] [address] [place] [address] Aortocoronary bypass status* Allergies Active Allergy Reactions [...] macular edema, left eye 12/28/2020 Atherosclerosis of [place] ronary artery of [place] heart without angina pectoris 12/19/2019 Persistent atrial fibrillation 11/28/2019 HTN, goal below 130/80 04/26/2019 Type 2 diabetes mellitus with diabetic neuropath y 02/11/2019 Chronic diarrhea 05/14/2010 Type 2 diabetes mellitus wit h hemoglobin A1c goal of 7.0%-8.0% 01/08/2010 Overview: ICD-10 update of inactive term DYSLIPIDEMIA, GOAL LDL BELOW 70 10/12/2009 Overview: Per Lipid Taxonomy. 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 ICD-10 update of inactive term ADVANCE DIRECTIVE INFORMATION 09/27/2007 07/26/2021 Overview: Yes-copy on file Carpal tunnel syndrome 04/14/200404/01 Atherosclerosis of [place] ronary artery of [place] heart without angina pectoris 04/14/2004 Overview: Duplicate. [...] EDT Session Encounter: [facility] in partnership with [employer] is a specialized [employer] that specializes in providing virtual cardiac rehab services. Session #12 completed. Please refer to scan document for session details. Session type: Education Group Session duration: 60 minutes documented in this encounter Plan of Treatment Upcoming Encounters Date Type Department Care Team (Late st Contact Info) Description 07/01/2024 1:30 PM EDT Office Visit Pharmacy, [place] [address] [facility], [place] [address] [facility] [address] [facility], [place] [address] 07/01/2024 1:40 PM EDT Anticoagulation Pharmacy, [place] [address] [facility], [place] [address] [facility] [address] [facility], [place] [address] 09/02/2024 10:00 AM EST Office Visit Cardiology, [facility] [address] [facility] [place] [address] [place] [address] [facility] [place] [address] 09/02/2024 10:00 AM EST Cardiac Studies Cardiology, [facility] [address] [facility] [address] [facility] [facility] [address] [facility] [place] [address] 09/23/2024 9:00 AM EST Office Visit Family Practice, [place] [address] [facility], [place] [address] Pete Ambriz MD [address] [facility] [address] 05/14/2025 10:00 AM EDT Nurse Only Ancillary Department, [place] [address] [address] [facility] [address] [place], Nurse Annual [facility] [address] [place] [address] Scheduled Procedures Name Priority Associated Diagnoses Date/Ti [...] Additional history exists CKD HGB USE SMARTSET 00070 01/28/202501/28, 01/29/2024, 12/27/2023, Additional history exists CKD PHOS USE SMARTSET 70847 01/28/2025 04/0 05/2024, 02/01/2023, 07/29/2022, Additional history [...] D LEVEL ONCE IN A LIFETIME-USE SMARTSET# [id number] Completed 08/28/2008, 04/07/2008, 12/04/2007 Pneumococcal Vaccine: 65+ [...] 2:56 PM 01/11/2005 3:56 PM Care Teams Model Maker Fiberglass Relationship Specialty Start Date End Date Pete Ambriz MD [address] [place] [address] PCP - General Internal Medicine 05/08/24 documented as of this encounter
--- OUTSIDE RECORDS SUMMARY | 2024-10-24 23:45 | External Medical Summary | Summary of Care ---
Author Name Unknown Organization [facility] Address [address] [place] [address] Phone [phone] Care Team Providers Care Commercial Construction Estimator Name Role Phone Pete Ambriz MD Primary Care Provider [phone] Reason for Visit * Reason Comments NEW PATIENT Referred by Dr. Ambriz for HIROC * Evaluate & Treat - Unlimited Visits (Within 10 days (routine)) - Authorized Specialty Diagnoses / Procedures Referred By Christiano brown Referred To Contact Rheumatology Diagnoses Osteoporosis, unspecified osteoporosis type, unspecified pathological fracture presence Pete Ambriz MD [address] [place] [address] Referral ID Status Reason Start Date Expiration Date Visits Requested Visits Authorized [id number] Authorized Specialty Services Required 06/13/[phone] Encounter Details Date Type Department Care Team (Late st Contact Info) Description 06/26/2024 11:00 AM EDT Office Visit Rheumatology [place] [id number] [facility] [place] [address] Jairo Owen PA-C [facility] [employer] [place] [address] Age-related osteoporosis without current pathological fracture* Allergies [...] left eye 12/28/2020 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 Vitamin D deficiency 12/12/2007 ocean transportation intermediary current use of anticoagulant therapy 0 05/27/2005 [...] Nummular eczema 09/06/2013 07/26/2021 [employer] Other*[id number] 02/03/2012 11/29/2016 Overview: Study Titile: Genomics Markers for Patients with Cardiovascular Disease Project # [id number] PI: Merary Rivera MD Please call [phone] with study related questions Irritable bowel syndrome 05/14/201001/2021 Type 2 diabetes mellitus wit h hemoglobin A1c goal of less than 7.0% 08/06/2009 01/08/2010 Overview: Modified per Diabetes protocol #14. ICD-10 update of inactive term ADVANCE DIRECTIVE INFORMATION 09/27/2007 07/26/2021 Overview: Yes-copy on file Carpal tunnel syndrome 04/14/200404/01 Atherosclerosis of [place] co ronary artery of [place] heart without angina pectoris 04/14/2004 Overview: Duplicate. [...] Sign Reading Time Taken Comments Blood Pressure - - Pulse - - Temperature 36.3 C (97.3 F) 06/26/2024 10:44 AM E DT Respiratory Rate - - Oxygen Saturation - - Inhaled Oxygen Concentration - - Weight 70.8 kg (156 lb) 06/26/2024 10:44 AM EDT Height 153 cm (5' 0.25") 06/26/2024 10:44 AM EDT Body Mass Index 30.21 06/26/2024 10:44 AM EDT documented in this encounter Patient Instructions * Patient Instructions* Jairo Owen PA-C - 06/26/2024 10:59 AM EDT RECLAST - Patient Education Zoledronic Acid Solution for injection Zoledronic Acid Solution for injection [Hypercalcemia of Malignancy] Zoledronic Acid Solution for injection [Pagets Disease] Zoledronic Acid Solution for injection What is this medicine? ZOLEDRONIC ACID (ZANDRA le dron ik id) lowers the amount of calcium loss from bone. It is used to treat Paget's disease and osteoporosis in women. This medicine may be used for other purposes; ask your health care provider or pharmacist if you have questions. What should I tell my health care provider before I take this medicine? They need to know if you have any of these conditions: aspirin-sensitive asthma dental disease kidney disease low levels of calcium in the blood past surgery on the parathyroid gland or intestines an unusual or allergic reaction to zoledronic acid, other medicines, foods, dyes, or preservatives or trying to get breast-feeding How should I use this medicine? This medicine is for infusion into a vein. It is given by a health resident care provider in a hospital or clinic setting. Talk to your print developer automatic regarding the use of this medicine in children. This medicine is not approved for use in children. Overdose: If you think you have taken too much of this medicine contact a poison control center or emergency room at once. NOTE: This medicine is only for you. Do not share this medicine with others. What if I miss a dose? It is important not to miss your dose. Call your doctor or health resident care provider if you are unable to keep an appointment. What may interact with this medicine? certain antibiotics given by injection NSAIDs, medicines for pain and inflammation, like ibuprofen or naproxen some diuretics like bumetanide, furosemide teriparatide This list may not describe all possible interactions. Give your health care provider a list of all the medicines, herbs, non-prescription drugs, or dietary supplements you use. Also, tell them if yousmoke, drink alcohol, or use illegal drugs. Some items may interact with your medicine. What should I watch for while using this medicine? Visit your doctor for regular check-ups. You will need important blood and lab work tests while youare taking this medicine. Women should inform their doctor if they wish to become or think they might be . There is a potential for serious side effects to an unborn child. Talk to your health resident care provider or pharmacist for more information. It is important to get the right amount of calcium and vitamin D while you are taking this medicine. Talk to your doctor about the foods you eat and the vitamins you take. Some people who take this medicine have severe bone, joint, and/or muscle pain. Tell your doctor ifyou have pain that does not go away or that gets worse. Be sure you are well hydrated prior to receiving this medication. What side effects may I notice from receiving this medicine? Side effects that you should report to your doctor or health resident care provider as soon as possible: allergic reactions like skin rash, itching or hives, swelling of the face, lips, or tongue breathing problems changes in vision feeling faint or lightheaded, falls jaw burning, cramping, or pain muscle cramps, stiffness, or weakness trouble passing urine or change in the amount of urine Side effects that usually do not require medical attention (report to your doctor or health resident care provider if they continue or are bothersome): bone, joint, or muscle pain fever irritation at site where injected loss of appetite nausea, vomiting stomach upset tired This list may not describe all possible side effects. Call your doctor for medical advice about side effects. You may report side effects to FDA at 1-618-TPZ-1611. Where should I keep my medicine? This drug is given in a hospital or clinic and will not be stored at home. NOTE:This sheet is a summary. It may not cover all possible information. If you have questions about this medicine, talk to your doctor, pharmacist, or health care provider. Copyright 2010 Gold Standard documented in this encounter Progress Notes * Jairo Owen PA-C - 06/26/2024 10:39 AM EDT CONSULT - [facility] ([facility]) - baseline visit Supervised by: Dr. Jemal Padgett REASON FOR CONSULT: High Risk DXA Scan: High Risk DXA Scan (T-Score below -2.5) and need for treatment HPI: This is a 84 year old year old female seen at the request of Dr. Ambriz for evaluation and treatment of High Risk Osteoporosis. Has never been on treatment for osteoporosis. Chart review notes high risk at hip since 2019. Review of Systems: All other review of systems reviewed and negative other than mentioned in HPI. MEDICATIONS: Current Outpatient Medications Medication Sig Dispense Refill Vitamin D 50 MCG (1999 UT) Oral Capsule Take 5,000 Units by mouth at bedtime. B-12 500 MCG Oral Tablet Take by mouth 1 Tablet daily . Furosemide 20 MG Oral Tablet (Lasix) TAKE TWO TABLETS BY MOUTH ONCE DAILY ON MONDAY, MONDAY, ANDIDAY. TAKE 1 TAB ONCE DAILY ALL OTHER [...] 2 times a day. To affected area. (Patient not taking: Reported on 06/12/2024) 15 g 5 Rosuvastatin Calcium 20 MG [...] BY MOUTH TWICE DAILY 180 Tablet 3 DULoxetine HCl 30 MG Oral Capsule Delayed Release Particles (Cymbalta) Take 2 Capsules by mouth in the morning. Acetaminophen ER 650 MG Oral Tablet Extended [...] 1 [facility] Tablet 3 metFORMIN HCl ER 500 [...] Ophthalmic Ointment Instill into eye at bedtime. Current Facility-Administered Medications Medication Dose Route Frequency Provider Last Rate Last Admin potassium chloride ER tab 10 mEq 10 mEq Oral Daily(AM) Chinmay Scherer DO PAST MEDICAL HISTORY: Past Medical History: Diagnosis Date Cardiac pacemaker [...] 08/24/2021 Noted healed 09/2021 Wound Center note PAST SURGICAL HISTORY: Past Surgical History: Procedure Laterality Date CABG, ARTERY-VEIN, TWO 08/23/2002 Off-pump CAB x 2 -- Roman COLONOSCOPY, DIAGNOSTIC (RECTUM) 03/18/2010 normal, repeat in 10 years COLONOSCOPY, DIAGNOSTIC (RECTUM) N/A 02/07/2019 poor prep/biopsies show adenomatous polyps/recall 3 years/COLONOSCOPY FLEXIBLE PROXIMAL DIAGNOSTIC performed by Trent Cesar MD at ENDOSCOPY [facility] CORONARY ANGIOGRAPHY W/LEFT HEART CATH 02/03/2012 CORONARY ANGIOGRAPHY W/LEFT HEART CATH performed by LAWRENCE GODINEZ at [facility] EGD, FLEXIBLE, DIAGNOSTIC 02/17/2022 gastritis / INPT [facility] INCISION & DRAINAGE Right 08/31/2022 shoulder abscess drained in office by Dr Channing Cedeno INJECT DX/THER SUBSTANCE INTERLAMINAR LUMBAR/SACRAL W IMAGE GUIDE 01/03/2022 INJECTION SPINE LUMBAR OR SACRAL performed by Abelardo Valdes DO at OR [facility] INSERT/REPLACE PACEMAKER,ATRIAL/VENTRICULAR 10/03/2007 dual pacer medtronic [id number] MISCELLANEOUS ORDER ([facility] ONLY) 3 X D&Cs, 1962, 1970 glenis NUC MED-BILIARY CCK STIMULATION 05/07/2010 ejection fraction 81% REMOVAL OF RUPTURED APPENDIX 01/1993 Appendectomy, Rupt Appendx+Abscess SACROILIAC JOINT INJECT W/GUIDANCE 11/11/2021 INJECTION SACROILIAC JOINT performed by Abelardo Valdes DO at OR [facility] SHOULDER SUBQ TUMOR REMOVAL, UNDER 3 CM Right 10/04/2022 EXCISION SOFT TISSUE TUMOR SHOULDER SUBCUTANEOUS performed by Channing Cedeno MD at [facility] SURGICAL PROCEDURE ONLY Right 10/04/2022 Excision of sebaceous cyst right shoulder TOTAL HYSTERECTOMY 07/1993 PRINCE (Total Abdominal Hysterectomy) Bilateral Oophorectomy SOCIAL HISTORY: Social History Tobacco Use Smoking status: Never Passive exposure: Never Smokeless tobacco: Never Vaping Use Vaping status: Never Used Substance Use Topics Alcohol use: No Drug use: No PHYSICAL EXAM: Goiter: No Kyphosis: yes Neuromuscular Stability: Normal Quadricep Strength: 5/5 Lungs: normal Heart: irregular rhythm BONE HEALTH SUMMARY: RISKS: Family History Fx: No Personal History Fx: No Current Smoker: No Weight <127 lbs: No Falls: yes Past Medical History of: Renal Failure/Insufficiency Esophageal Stricture PREVENTION: Exercise: 3 or more times weekly: No Nutrition: eats calcium rich foods: Yes Calcium and Vitamin D in adequate doses: Yes DIAGNOSTIC TESTING: LABS: The following labs were reviewed and results were satisfactory: Component Latest Ref Rng 05/24/2024 BUN 6 - 20 mg/dL 22 (H) Creatinine 0.5 - 1.0 mg/dL 1.2 (H) Estimated Glomerular Filtration Rate >=60 mL/min 45 (L) Sodium 135 - 146 mmol/L 139 Potassium 3.5 - 5.1 mmol/L 5.4 (H) Chloride 98 - 107 mmol/L 98 CO2 22 - 32 mmol/L 31 Anion Gap 7 - 15 mmol/L 10 Glucose 70 - 120 mg/dL 208 (H) Albumin 3.8 - 5.0 g/dL 4.5 AST 10 - 35 U/L 24 Alkaline Phosphatase 35 - 130 U/L 61 Bilirubin, Total <=1.2 mg/dL 0.4 Calcium 8.4 - 10.2 mg/dL 10.3 (H) Protein 6.0 - 8.3 g/dL 7.5 ALT 10 - 35 U/L 27 Legend: (H) High (L) Low Component Latest Ref Rng 07/29/2022 01/29/2024 PTH 15 - 65 pg/mL 65 TSH 0.27 - 4.20 uIU/mL 1.77 DXA: DXA from 06/04/2024 was reviewed with Ms. Almanza. RESULTS: T-scores are adjusted for trabecular bone score Lumbar spine: 1.137 gms/cm2 T-score: +0.7 Left femoral neck: 0.551 gms/cm2 T-score: -2.8 FRAX not indicated. Lumbar spine trabecular bone score is 1.166 which suggests a degraded micro architecture compared to the reference population Dexa noting high risk scores dating back to 2019 ASSESSMENT: 84 year old year old female with No diagnosis found. who is at high fracture risk and at future risk of morbidity and mortality from osteoporosis. PLAN: Patient referred for consult and treatment. The following items are ordered and/or in progress: 1. Osteoporosis education was provided by the [facility] team (topics included disease process, DXA, calcium/vitamin D, osteoporosis medications, weight bearing exercise, fall prevention/safety). 2. Prevention: . Eye Examination recommended annually, as good vision may help to prevent falls . Exercise recommended: standing, walking, light lifting . Fall Prevention/Safety Education recommended and discussed . Continue calcium rich foods (goal of 3 servings daily) 3. Osteoporosis medications: Consider Reclast 5 mg IV yearly. Business family service counselor contacted? Yes Update labs then proceed with infusion once yearly for plan of three doses. Repeat dexa two years from previous 4. Followup: Return to [facility] clinic in 1 year Jairo Owen PA-C [facility] Team Cc: PCP: PETE AMBRIZ [facility] [place] [address] [phone] The patient was discussed with me. I agree with the findings and plan as documented by /Jairo Barnes in this note. Jemal Padgett MD Rheumatology Department documented in this encounter Nursing Notes * Ivette New LPN - 06/26/2024 10:41 AM EDT Chief Complaint Patient presents with NEW PATIENT Referred by Dr. Ambriz for H[facility]OC documented in this encounter Plan of Treatment Upcoming Encounters Date Type Department Care Team (Late st Contact Info) Description 07/01/2024 1:30 PM EDT Office Visit Pharmacy, [address] [place] [address] [address] 07/01/2024 1:40 PM EDT Anticoagulation Pharmacy, [address] [place] [address] [facility] [place] [address] 09/02/2024 10:00 AM EST Office Visit Cardiology, [facility] [address] [place] [address] [place] Momin PA-C [address] [place] [address] 09/02/2024 10:00 AM EST Cardiac Studies Cardiology, [facility] [address] [facility] [place] [address] [facility] [address] [place] [address] 09/23/2024 9:00 AM EST Office Visit Family Practice, [place] [address] [place] [id number] Pete Ambriz MD [address] [place] [address] 05/14/2025 10:00 AM EDT Nurse Only Ancillary Department, [place] [address], [place] [id number] [place], Nurse [facility] [address] [place] [address] Scheduled Orders Name Type Priority Associated Diagnoses Orde r Schedule 25-HYDROXY VITAMIN D Lab Routine Age-related osteoporosis without current pathological fracture Expected: 06/26/2024, Expires: 06/26/2025 CREATININE Lab Routine Age-related osteoporosis without current pathological fracture Expected: 06/26/2024, Expires: 06/26/2025 CALCIUM Lab Routine Age-related osteoporosis without current pathological fracture Expected: 06/26/2024, Expires: 06/26/2025 Scheduled Procedures Name Priority Associated Diagnoses Date/Ti [...] Additional history exists CKD HGB USE SMARTSET 82204 01/28/202501/28, 01/29/2024, 12/27/2023, Additional history exists CKD PHOS USE SMARTSET 93746 01/28/2025 040 05/2024, 02/01/2023, 07/29/2022, Additional history [...] D LEVEL ONCE IN A LIFETIME-USE SMARTSET# [id number] Completed 08/28/2008, 04/07/2008, 12/04/2007 Pneumococcal Vaccine: 65+ [...] Primary Senile osteoporosis documented in this encounter Advance Directives * No Code Status (Latest Code Status on File) Date Activated Date Inactivated Comments 01/11/2005 2:56 PM 01/11/2005 3:56 PM Care Teams Commercial Construction Estimator Relationship Specialty Start Date End Date Pete Ambriz MD [address] [place] [address] PCP - General Internal Medicine 05/08/24 documented as of this encounter
--- OUTSIDE RECORDS SUMMARY | 2024-10-24 23:46 | External Medical Summary | Summary of Care ---
Author Name Unknown Organization [facility] Address [address] [facility] [address] Phone [phone] Care Team Providers Care Material Dispatcher Name Role Phone Pete Ambriz MD Primary Care Provider [phone] Encounter Details Date Type Department Care Team (Late st Contact Info) Description 06/21/2024 Result Scan Unspecified Department Dominic Gutiérrez MD [address] [place] [address] <No scans attached> Allergies Active Allergy Reactions Criticality Noted Date Comments Cephalexin Unknown 09/12/2002 Lisinopril 12/07/2018 Cough Oxycodone 12/04/2003 nausea, stomach pains Tetanus Toxoid 01/28/2009 Local reaction, fever documented as of this encounter (statuses as of 06/21/2024) Medications Medication Sig Dispensed Refills Start Date [...] affected area. 15 g 5 4 Active Additional Information Patient not taking.Reported on 06/12/2024 Rosuvastatin Calcium 20 MG Oral Tablet (Crestor)Indication [...] as of this encounter (statuses as of 06/21/2024) Active Problems Problem Noted Date Diagnosed Date [...] macular edema, left eye 12/28/2020 Atherosclerosis of [place] co ronary artery of [place] heart without angina pectoris 12/19/2019 Persistent atrial [...] as of this encounter (statuses as of 06/21/2024) Resolved Problems Problem Noted Date Diagnosed Date Resolved Date Traumatic open wound of right lower leg 08/24/2021 07/18/2022 Overview: Noted healed 09/2021 Wound Center note Other psoriasis 07/26/2021 07/26/2021 Heart failure, diastolic, wi th acute decompensation 12/19/2019 05/24/2024 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 Viral URI with cough 07/08/2016 020 Bacterial pneumonia 05/18/2016 06/04/20 Overview: Acute. Nausea without vomiting 05/18/201605/23 Hyponatremia 05/18/2016 07/26/2021 Nummular eczema 09/06/2013 07/26/2021 [employer] Other*[id number] 02/03/2012 11/29/2016 Overview: Study Titile: Genomics Markers for Patients with Cardiovascular Disease Project # [id number] PI: Merary Rivera MD Please call [phone] with study related questions Irritable bowel syndrome 05/14/201001/2021 Type 2 diabetes mellitus wit h hemoglobin A1c goal of less than 7.0% 08/06/2009 01/08/2010 Overview: Modified per Diabetes protocol #14. ICD-10 update of inactive term ADVANCE DIRECTIVE INFORMATION 09/27/2007 07/26/2021 Overview: Yes-copy on file Carpal tunnel syndrome 04/14/200404/01 Atherosclerosis of [place] co ronary artery of [place] heart without angina pectoris 04/14/2004 Overview: Duplicate. [...] breast 01/05/200107/26 DERMATITIS DUE TO PLANT 04/12/2000 02/03/2008 Edema 04/12/2000 11/28/2007 Type 2 diabetes mellitus wit h hemoglobin A1c goal of less than 7.0% 11/28/2007 Overview: ICD-10 update of inactive term Hx of CABG 06/04/2020 Overview: Duplicate. Cardiovascular arteriosclerosis 01/30/2019 Odd detrimental health beliefs 07/26/2021 documented as of this encounter (statuses as of 06/21/2024) Immunizations Name Administration Dates Next Due COVID-19 [...] No 05/24/2024 Does the household have a [facility] source of income? (Household - for [...] 06/26/2024 11:00 AM EDT Office Visit Rheumatology [facility] [address] [place] [address] Jairo Owen PA-C [address] [employer] [place] [address] 07/01/2024 1:30 PM EDT [facility] [address] [facility] [id number] [address] [facility] [address] 07/01/2024 1:40 PM EDT Anticoagulation Pharmacy, [place] [address] [address] [facility] [address] [place] [facility] [address] [place] [address] 09/02/2024 10:00 AM EST [facility] [address] [facility] [address] [place] Momin PA-C [address] [place] [address] 09/02/2024 10:00 AM EST Cardiac Studies Cardiology, [facility] [address] [place] [address] Billy Barber [facility] [address] [place] [address] 09/23/2024 9:00 AM EST Office Visit Family [facility], [place] [address] [place] [address] Pete Ambriz MD [address] [place] [address] 05/14/2025 10:00 AM EDT Nurse Only Ancillary Department, [place] [address] [facility] [address] [place], [facility] [address] [facility] [address] Scheduled Procedures Name Priority Associated Diagnoses Date/Ti me COLONOSCOPY FLEXIBLE PROXIMA L DIAGNOSTIC Recall History of colonic polyps Health Maintenance Due Date Last Done Comments Colonoscopy 02/07/2022 02/07/2019, 01/21, 03/18/2010 *BISPHONATE OR OTHER ACCEPTABLE MEDICATION NEEDED FOR OSTEOPOROSIS (REFER TO SMARTSET #1146) 12/12/2022 COVID-19 Vaccine ( season) 2023 06/22/2021, 05/08/2021 Influenza Vaccine (FLU shot) (#1) 2024 08/30/2023, 09/23/2022, 10/01/2019, Additional history exists GFR 11/24/2024 05/24/2024, 03/0 03/2024, 07/25/2023, Additional history exists HbA1c 11/24/2024 05/24/2024, 04/0 05/2024, 07/25/2023, Additional history exists B-12 01/28/2025 01/29/2024, 01/21, 07/29/2022, Additional history exists CKD HGB USE SMARTSET 23907 01/28/202501/28, 01/29/2024, 12/27/2023, Additional history exists CKD PHOS USE SMARTSET 61991 01/28/2025 04/0 05/2024, 02/01/2023, 07/29/2022, Additional history [...] D LEVEL ONCE IN A LIFETIME-USE SMARTSET# 36979 Completed 08/28/2008, 04/07/2008, 12/04/2007 Pneumococcal Vaccine: 65+ [...] Date/Time Associated Diagnosis Comments CARDIOLOGY SCANNED RESULT 06/21/2024 documented in this encounter Results * CARDIOLOGY SCANNED RESULT (06/21/2024) 06/21/2024 Dominic Gutiérrez MD OTHER documented in this encounter Advance Directives * No Code Status (Latest Code Status on File) Date Activated Date Inactivated Comments 01/11/2005 2:56 PM 01/11/2005 3:56 PM Care Teams Material Dispatcher Relationship Specialty Start Date End Date Pete Ambriz MD [address] [place] [address] PCP - General Internal Medicine 05/08/24 documented as of this encounter
--- OUTSIDE RECORDS SUMMARY | 2024-10-24 23:46 | External Medical Summary | Summary of Care ---
Author Name Unknown Organization [facility] Address [address] [place] [address] Phone [phone] Care Team Providers Care Camp Assistant Name Role Phone Pete Ambriz MD Primary Care Provider [phone] Reason for Visit * Reason Comments NEW PATIENT Referred by Dr. Ambriz for HIROC * Evaluate & Treat - Unlimited Visits (Within 10 days (routine)) - Authorized Specialty Diagnoses / Procedures Referred By Christiano brown Referred To Contact Rheumatology Diagnoses Osteoporosis, unspecified osteoporosis type, unspecified pathological fracture presence Pete Ambriz MD [address] [place] [address] Referral ID Status Reason Start Date Expiration Date Visits Requested Visits Authorized [id number] Authorized Specialty Services Required 06/13/[phone] Encounter Details Date Type Department Care Team (Late st Contact Info) Description 06/26/2024 11:00 AM EDT Office Visit Rheumatology [place] [id number] [facility] [facility] [place] [address] Jairo Owen PA-C [facility] [place] [address] Age-related osteoporosis without current pathological fracture* Allergies [...] on management encounter,Aortocoro nary bypass status,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),detention current use of anticoagulant therapy TAKE 1/2 [...] macular edema, left eye 12/28/2020 Atherosclerosis of [place] co ronary artery of [place] heart without angina pectoris 12/19/2019 Persistent atrial fibrillation 11/28/2019 HTN, goal below 130/80 04/26/2019 Type 2 diabetes mellitus with diabetic neuropath y 02/11/2019 Chronic diarrhea 05/14/2010 Type 2 diabetes mellitus wit h hemoglobin A1c goal of 7.0%-8.0% 01/08/2010 Overview: ICD-10 update of inactive term DYSLIPIDEMIA, GOAL LDL BELOW 70 10/12/2009 Overview: Per Lipid Taxonomy. 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 ICD-10 update of inactive term ADVANCE DIRECTIVE INFORMATION 09/27/2007 07/26/2021 Overview: Yes-copy on file Carpal tunnel syndrome 04/14/200404/01 Atherosclerosis of [place] co ronary artery of [place] heart without angina pectoris 04/14/2004 Overview: Duplicate. [...] What is this medicine? ZOLEDRONIC ACID (ZANDRA blane lujan ik id) lowers the amount of calcium [...] vein. It is given by a health home care attendant in a hospital or clinic setting. Talk to your pump erector helper regarding the use of this medicine in [...] your dose. Call your doctor or health home care attendant if you are unable to keep an [...] an unborn child. Talk to your health home care attendant or pharmacist for more information. It is [...] should report to your doctor or health home care attendant as soon as possible: allergic reactions like [...] attention (report to your doctor or health home care attendant if they continue or are bothersome): bone, joint, or muscle pain fever irritation at site where injected loss of appetite nausea, vomiting stomach upset tired This list may not describe all possible side effects. Call your doctor for medical advice about side effects. You may report side effects to FDA at 2-143-GNA-7498. Where should I keep my medicine? This drug is given in a hospital or clinic and will not be stored at home. NOTE:This sheet is a summary. It may not cover all possible information. If you have questions about this medicine, talk to your doctor, pharmacist, or health care provider. Copyright 2011 Gold Standard documented in this encounter Nursing Notes * Ivette New LPN - 06/26/2024 10:41 AM EDT Chief Complaint Patient presents with NEW PATIENT Referred by Dr. Ambriz for HIROC documented in this encounter Plan of Treatment Upcoming Encounters Date Type Department Care Team (Late st Contact Info) Description 07/01/2024 1:30 PM EDT [facility] [place] [address] [facility] [address] [facility] [address] [facility], [place] [address] 07/01/2024 1:40 PM EDT Anticoagulation Pharmacy, [place] [address] [facility] [address] [facility] [address] [facility], [place] [address] 09/02/2024 10:00 AM EST Office Visit Cardiology, [facility] [place] [address] [place] Momin PA-C [address] [place] [address] 09/02/2024 10:00 AM EST Cardiac Studies Cardiology, [facility] [address] [facility] [place] [address] Billy Barber [facility] [address] [place] [address] 09/23/2024 9:00 AM EST Office Visit Family Practice, [place] [address] [facility] [phone] Pete Ambriz MD [address] [place] [address] 05/14/2025 10:00 AM EDT Nurse Only Ancillary Department, [place] [address] [facility] [place] [phone] [place], Nurse Annual [facility] [address] [place], [place] [phone] Scheduled Orders Name Type Priority Associated Diagnoses [...] 07/25/2023, Additional history exists HbA1c 11/24/2024 05/24/2024, 040 05/2024, 07/25/2023, Additional history exists B-12 01/28/2025 01/29/2024, 01/21, 07/29/2022, Additional history exists CKD HGB USE SMARTSET 49184 01/28/202501/28, 01/29/2024, 12/27/2023, Additional history exists CKD PHOS USE SMARTSET 12825 01/28/2025 04/0 05/2024, 02/01/2023, 07/29/2022, Additional history [...] D LEVEL ONCE IN A LIFETIME-USE SMARTSET# [id number] Completed 08/28/2008, 04/07/2008, 12/04/2007 Pneumococcal Vaccine: 65+ [...] 2:56 PM 01/11/2005 3:56 PM Care Teams Camp Assistant Relationship Specialty Start Date End Date Pete Ambriz MD [address] [place] [address] PCP - General Internal Medicine 05/08/24 documented as of this encounter
--- OUTSIDE RECORDS SUMMARY | 2024-10-24 23:46 | External Medical Summary | Summary of Care ---
Author Name Unknown Organization [facility] Address [address] [place] [address] Phone [phone] Care Team Providers Care Class A Regional Truck Driver Name Role Phone Pete Ambriz MD Primary Care Provider [phone] Reason for Visit * Reason Comments Pacemaker Clinic Encounter Details Date Type Department Care Team (Latest Contact Info) Description 06/14/2024 9:00 AM EDT Cardiac Studies Cardiology, [facility] [place] [address] [place], [facility] [address] [place] [address] PAF (paroxysmal atrial fibrillation) ([facility])*; SSS (sick sinus syndrome) ([facility]); Cardiac pacemaker in situ; Persistent atrial fibrillation ([facility]) Allergies Active Allergy Reactions Criticality Noted Date Comments Cephalexin Unknown 09/12/2002 Lisinopril 12/07/2018 Cough Oxycodone 12/04/2003 nausea, stomach pains Tetanus Toxoid 01/28/2009 Local reaction, fever documented as of this encounter (statuses as of 06/14/2024) Medications Medication Sig Dispensed Refills Start Date [...] on management encounter,Aortocoro nary bypass status,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),jail current use of anticoagulant therapy TAKE 1/2 [...] as of this encounter (statuses as of 06/14/2024) Active Problems Problem Noted Date Diagnosed Date [...] macular edema, left eye 12/28/2020 Atherosclerosis of [place] co ronary artery of [place] heart without angina pectoris 12/19/2019 Persistent [...] as of this encounter (statuses as of 06/14/2024) Resolved Problems Problem Noted Date Diagnosed Date [...] Nummular eczema 09/06/2013 07/26/2021 [employer] Other*[id number] 02/03/2012 11/29/2016 Overview: Study Titile: Genomics Markers for Patients with Cardiovascular Disease Project # [id number] PI: Merary Rivera MD Please call [phone] with study related questions Irritable bowel syndrome 05/14/201001/2021 Type 2 diabetes mellitus wit h hemoglobin A1c goal of less than 7.0% 08/06/2009 01/08/2010 Overview: Modified per Diabetes protocol #14. ICD-10 update of inactive term ADVANCE DIRECTIVE INFORMATION 09/27/2007 07/26/2021 Overview: Yes-copy on file Carpal tunnel syndrome 04/14/200404/01 Atherosclerosis of [place] co ronary artery of [place] heart without angina pectoris 04/14/2004 Overview: [...] as of this encounter (statuses as of 06/14/2024) Immunizations Name Administration Dates Next Due COVID-19 mRNA, LNP-s, No Pre serve, 2-Dose Series (Fastclick) 06/22/2021,05/08/2021 Pneumococcal Conjugate Vacc, 13 Valent (Prevnar) 08/12/2016 Pneumococcal Polysaccharide PPV23 (Pneumovax) ,07/20/2005 Seasonal Influenza, Quadrivalent Hd (Fluzone Hd) 08/30/2023,09/23/2022 Seasonal Influenza, Split, IIV3, With Preserve, Inj 08/04/2006 Seasonal Influenza, Trivalent, Adjuvanted, 65+ y rs 10/01/2019 TD, Preservative Free 01/26/2009 documented as [...] No 05/24/2024 Does the household have a [facility] source of income? (Household - for ages [...] Progress Notes * Stacey Galan LPN - 06/14/2024 9:20 AM EDT Patient and implanted device were evaluated today in the [facility]. Providers please see scanned report in the Scans tab. Left pectoral device pocket is healthy without erythema, swelling, pain, or drainage. Patient in ongoing episode of AF since 11/17/2023. Mode changed to VVIR per provider request. documented in this encounter Plan of Treatment Upcoming Encounters Date Type Department Care Team (Late st Contact Info) Description 07/01/2024 1:30 PM EDT Office Visit Pharmacy, [place] [address] [facility], [place] [address] [facility] [address] [facility], [place] [address] 07/01/2024 1:40 PM EDT Anticoagulation Pharmacy, [place] [address] [address] [facility] [address] [facility] [address] [facility], [place] [address] 09/02/2024 10:00 AM EST Office Visit [facility], [facility] [place] [address] Dayton Momin PACrystalC [address] [place] [address] 09/02/2024 10:00 AM EST Cardiac Studies Cardiology, [facility] [place] [address] Billy Barber [facility] [place] [address] 09/23/2024 9:00 AM EST Office Visit Family Practice, [place] [address] [facility] [phone] Pete Ambriz MD [address] [facility] [address] 05/14/2025 10:00 AM EDT Nurse Only Ancillary Department, [place] [address] [place] [address] [address], Nurse Annual [facility] [address] [place] [address] Scheduled Orders Name Type Priority Associated Diagnoses Orde r Schedule DUAL-LEAD PACEMAKER + REPROGRAM Procedures Routine PAF (paroxysmal atrial fibrillation) (HCC) SSS (sick sinus syndrome) (HCC) Cardiac pacemaker in situ Persistent atrial fibrillation (HCC) Ordered: 06/14/2024 Scheduled Procedures Name Priority Associated Diagnoses Date/Ti [...] Additional history exists CKD HGB USE SMARTSET 77487 01/28/202501/28, 01/29/2024, 12/27/2023, Additional history exists CKD PHOS USE SMARTSET 49110 01/28/2025 04/0 05/2024, 02/01/2023, 07/29/2022, Additional history [...] D LEVEL ONCE IN A LIFETIME-USE SMARTSET# [id number] Completed 08/28/2008, 04/07/2008, 12/04/2007 Pneumococcal Vaccine: 65+ [...] as of this encounter Visit Diagnoses Diagnosis PAF (paroxysmal atrial fibrillation) (HCC)- Primary 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 SSS (sick sinus syndrome) (HCC) Sinoatrial node dysfunction Cardiac pacemaker in situ Persistent atrial fibrillation (HCC) 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 documented in this encounter Advance Directives * No Code Status (Latest Code Status on File) Date Activated Date Inactivated Comments 01/11/2005 2:56 PM 01/11/2005 3:56 PM Care Teams Class A Regional Truck Driver Relationship Specialty Start Date End Date Pete Ambriz MD [address] [place] [facility] [place] [address] PCP - General Internal Medicine 05/08/24 documented as of this encounter
--- OUTSIDE RECORDS SUMMARY | 2024-10-24 23:46 | External Medical Summary | Summary of Care ---
Author Name Unknown Organization [facility] Address [address] [facility] [place] [address] Phone [phone] Care Team Providers Care Bill Collector Name Role Phone Pete Ambriz MD Primary Care Provider [phone] Reason for Visit * Reason Comments Cardiac Rehab Encounter Details Date Type Department Care Team (Late st Contact Info) Description 06/05/2024 9:00 AM EDT Telemedicine Cardiac Rehab [facility], [facility] [address] [place] [address] [place] [address] [facility] [address] [place] [address] [place] [address] Aortocoronary bypass status* Allergies Active Allergy Reactions Criticality Noted Date Comments Cephalexin Unknown 09/12/2002 Lisinopril 12/07/2018 Cough Oxycodone 12/04/2003 nausea, stomach pains Tetanus Toxoid 01/28/2009 Local reaction, fever documented as of this encounter (statuses as of 06/15/2024) Medications Medication Sig Dispensed Refills Start Date [...] encounter,Aortocoro nary bypass status,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),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 TAKE 1/2 TO 1 TABLET BY MOUTH ONCE DAILY DIRECTED BY [facility]MADIN CLINIC 90 Tablet 3 4 Active metFORMIN HCl ER 500 MG Oral Tablet Extended Release 24 Hour (Glucophage XR)Indications:Type 2 diabetes mellitus with hemoglobin A1c goal of 7.0%-8.0% (HCC) TAKE 2 TABLETS BY MOUTH DAILY WITH MEALS 4 Active Hospital, Clinic, or Other Facility Administered Medication Ordered Dose Route Frequency Start Date End Date Status potassium chloride ER tab 10 mEqIndications:Acute on chronic diastolic congestive heart failure (HCC) 10 mEq OR Daily(AM) 12/24/2019 Activ e documented as of this encounter (statuses as of 06/15/2024) Active Problems Problem Noted Date Diagnosed Date [...] macular edema, left eye 12/28/2020 Atherosclerosis of [place] co ronary artery of [place] heart without angina pectoris 12/19/2019 Persistent atrial fibrillation 11/28/2019 HTN, goal below 130/80 04/26/2019 Type 2 diabetes mellitus with diabetic neuropath y 02/11/2019 Chronic diarrhea 05/14/2010 Type 2 diabetes mellitus wit h hemoglobin A1c goal of 7.0%-8.0% 01/08/2010 Overview: ICD-10 update of inactive term DYSLIPIDEMIA, GOAL LDL BELOW 70 10/12/2009 Overview: Per Lipid Taxonomy. 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 0 05/27/2005 Overview: ICD-10 update of inactive term Aortocoronary bypass status 10/17/2002 NONTOX MULTINODUL GOITER Cardiac pacemaker in situ Overview: medtronic dual chamber for tachybrady Pulmonary hypertension DISH (diffuse idiopathic skeletal hyperostosis) documented as of this encounter (statuses as of 06/15/2024) Resolved Problems Problem Noted Date Diagnosed Date [...] Nummular eczema 09/06/2013 07/26/2021 [employer] Other*[id number] 02/03/2012 11/29/2016 Overview: Study Titile: Gen[employer] Markers for Patients with Cardiovascular Disease Project # [id number] PI: Merary Rivera MD Please call [phone] with study related questions Irritable bowel syndrome 05/14/201001/2021 Type 2 diabetes mellitus wit h hemoglobin A1c goal of less than 7.0% 08/06/2009 01/08/2010 Overview: Modified per Diabetes protocol #14. ICD-10 update of inactive term ADVANCE DIRECTIVE INFORMATION 09/27/2007 07/26/2021 Overview: Yes-copy on file Carpal tunnel syndrome 04/14/200404/01 Atherosclerosis of [place] co ronary artery of [place] heart without angina pectoris 04/14/2004 Overview: Duplicate. [...] as of this encounter (statuses as of 06/15/2024) Immunizations Name Administration Dates Next Due COVID-19 mRNA, LNP-s, No Pre serve, 2-Dose Series ([employer]) 06/22/2021,05/08/2021 Pneumococcal Conjugate Vacc, 13 Valent (Prevnar) [...] No 05/24/2024 Does the household have a [facility] regional medical center[facility] source of income? (Household [...] * Hali De La Torre EPC - 06/15/2024 10:30 AM EDT Session Encounter: Patient is participating in [facility]'s Intensive Cardiac Rehab Program in partnership with [employer] is a specialized [employer] that specializes in providing virtual cardiac rehab services. Session #9 completed. Please refer to scan document for session details. Session type: Exercise Individual Session duration: 35 minutes documented in this encounter Plan of Treatment Upcoming Encounters Date Type Department Care Team (Late st Contact Info) Description 07/01/2024 1:30 PM EDT Office Visit Ludivina Blev[place] [address] [place] [address] [facility] [address] [place] [address] 07/01/2024 1:40 PM EDT Anticoagulation Ludivina [place] [address] [place] [address] [facility] [address] [place] [address] 09/02/2024 10:00 AM EST Office Visit Cardiology, [facility] [address] [facility] [place] [address] [place] Momin PA-C [address] [facility] [place] [address] 09/02/2024 10:00 AM EST Cardiac Studies Cardiology, [facility] [place] [address] Billy Barber [facility] [address] [facility] [place] [address] 09/23/2024 9:00 AM EST Office Visit Family [facility] [place] [address] [place] [facility] [place] [address] Pete Ambriz MD [address] [place] [facility] [place] [address] 05/14/2025 10:00 AM EDT Nurse Only Ancillary Department, [place] [address] [address] [facility] [address] [place], Nurse Annual Wellness [address] [place] [facility] [place] [address] Scheduled Procedures Name Priority Associated Diagnoses Date/Ti [...] Additional history exists CKD HGB USE SMARTSET 49436 01/28/202501/28, 01/29/2024, 12/27/2023, Additional history exists CKD PHOS USE SMARTSET 19373 01/28/20250 05/2024, 02/01/2023, 07/29/2022, Additional history exists [...] D LEVEL ONCE IN A LIFETIME-USE SMARTSET# [id number] Completed 08/28/2008, 04/07/2008, 12/04/2007 Pneumococcal Vaccine: 65+ [...] 2:56 PM 01/11/2005 3:56 PM Care Teams Bill Collector Relationship Specialty Start Date End Date Pete Ambriz MD [address] [place] [address] PCP - General Internal Medicine 05/08/24 documented as of this encounter
--- OUTSIDE RECORDS SUMMARY | 2024-10-24 23:46 | External Medical Summary | Summary of Care ---
Author Name Unknown Organization [facility] Address [address] [place] [address] Phone [phone] Care Team Providers Care Switch Tender Name Role Phone Pete Ambriz MD Primary Care Provider [phone] Reason for Referral * Evaluate & Treat - Unlimited Visits (Within 10 days (routine)) - Authorized Specialty Diagnoses / Procedures Referred By Contpratibha t Referred To Contact Rheumatology Diagnoses Osteoporosis, unspecified osteoporosis type, unspecified pathological fracture presence Pete Ambriz MD [address] [place] [address] Referral ID Status Reason Start Date Expiration Date Visits Requested Visits Authorized [id number] Authorized Specialty Services Required 06/13/[phone] Question Answer Referral Priority Within 10 days (routine) Where should this appointment be scheduled? [facility] Encounter Details Date Type Department Care Team (Late st Contact Info) Description 06/11/2024 Telephone [facility] [address] [place] [address] Pete Ambriz MD [address] [place] [address] Allergies Active Allergy Reactions Criticality Noted Date Comments Cephalexin Unknown 09/12/2002 Lisinopril 12/07/2018 Cough Oxycodone 12/04/2003 nausea, stomach pains Tetanus Toxoid 01/28/2009 Local reaction, fever documented as of this encounter (statuses as of 06/17/2024) Medications Medication Sig Dispensed Refills Start Date [...] 06/12/2024 Rosuvastatin Calcium 20 MG Oral Tablet (Crestor)Indicatio [...] ion management encounter,Aortocor onary bypass status,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),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 024 Discontin ued(End of Procedure ) Hospital, Clinic, or Other Facility Administered Medication Ordered Dose Route Frequency Start Date End Date Status potassium chloride ER tab 10 mEqIndications:Acute on chronic diastolic congestive heart failure (HCC) 10 mEq OR Daily(AM) 12/24/2019 Activ e documented as of this encounter (statuses as of 06/17/2024) Active Problems Problem Noted Date Diagnosed Date [...] macular edema, left eye 12/28/2020 Atherosclerosis of [place] co ronary artery of [place] heart without angina pectoris 12/19/2019 Persistent atrial fibrillation 11/28/2019 HTN, goal below 130/80 04/26/2019 Type 2 diabetes mellitus with diabetic neuropath y 02/11/2019 Chronic diarrhea 05/14/2010 Type 2 diabetes mellitus wit h hemoglobin A1c goal of 7.0%-8.0% 01/08/2010 Overview: ICD-10 update of inactive term DYSLIPIDEMIA, GOAL LDL BELOW 70 10/12/2009 Overview: Per Lipid Taxonomy. 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 Pulmonary hypertension DISH (diffuse idiopathic skeletal hyperostosis) documented as of this encounter (statuses as of 06/17/2024) Resolved Problems Problem Noted Date Diagnosed Date [...] Nummular eczema 09/06/2013 07/26/2021 [employer] Other*[id number] 02/03/2012 11/29/2016 Overview: Study Titile: [employer] Markers for Patients with Cardiovascular Disease Project # [id number] PI: Merary Rivera MD Please call [phone] with study related questions Irritable bowel syndrome 05/14/201001/2021 Type 2 diabetes mellitus wit h hemoglobin A1c goal of less than 7.0% 08/06/2009 01/08/2010 Overview: Modified per Diabetes protocol #14. ICD-10 update of inactive term ADVANCE DIRECTIVE INFORMATION 09/27/2007 07/26/2021 Overview: Yes-copy on file Carpal tunnel syndrome 04/14/200404/01 Atherosclerosis of [place] co ronary artery of [place] heart without angina pectoris 04/14/2004 Overview: Duplicate. [...] as of this encounter (statuses as of 06/17/2024) Immunizations Name Administration Dates Next Due COVID-19 mRNA, LNP-s, No Pre serve, 2-Dose Series (Pfizer) 06/22/2021,05/08/2021 Diptheria/Tetanus (Adult) 06/10/1997 Pneumococcal Conjugate Vacc, 13 Valent (Prevnar) 08/12/2016 Pneumococcal Polysaccharide PPV23 (Pneumovax) 05/08/2018,07/20/2005 Seasonal Influenza, Quadriva lent Hd (Fluzone Hd) 08/30/2023,09/23/2022 Seasonal Influenza, Split, I IV3, With Preserve, Inj 08/04/2006,07/29/2005,08/16/2004 Seasonal Influenza, Trivalen t, Adjuvanted, 65+ yrs 10/01/2019 TD, Preservative Free 01/26/2009 documented as [...] encounter Miscellaneous Notes * Telephone Encounter - Laverne Delgado OSA - 06/17/2024 8:37 AM EDT LMOM. 06/17/2024 * Addendum Note - Pete Ambriz MD - 06/13/2024 9:12 AM EDTAddended by: PETE AMBRIZ on: 06/13/2024 09:12 AM Modules accepted: Orders * Telephone Encounter - Pete Ambriz MD - 06/13/2024 9:12 AM EDT Please schedule * Telephone Encounter - Tonya Pace OSA - 06/11/2024 2:40 PM EDT Pt calling back in, advised of message below. Pt agreeable to see osteoporosis clinic, please placereferral . Pt ok with call back but will be away from tomorrow morning. * Telephone Encounter - Pete Ambriz MD - 06/11/2024 2:37 PM EDT It didn't get suddenly worse It was showing osteopenia ( close to osteoporosis ) for years And now touched the line It is aging process too Pt can contact us anytime for referral request * Telephone Encounter - Laverne Delgado OSA - 06/11/2024 2:22 PM EDT Patient states she wants to know why it all of a sudden got worse when she never had any issues before. Patient declined scheduling and states she will discuss this with Dr. Ambriz at her upcoming appointment. 06/11/2024 * Telephone Encounter - Pete Ambriz MD - 06/11/2024 2:17 PM EDT DEXA showed hip osteoporosis which seems progressing quickly Would like to refer to osteoporosis clinic if pt agrees documented in this encounter Plan of Treatment Upcoming Encounters Date Type Department Care Team (Late st Contact Info) Description 07/01/2024 1:30 PM EDT Office Visit Pharmacy, [place] [address] [place] [facility] [place] [address] [facility] [address] [place] [facility] [place] [address] 07/01/2024 1:40 PM EDT Anticoagulation Pharmacy, [place] [address] [place] [facility] [place] [address] [facility] [address] [place] [facility] [address] 09/02/2024 10:00 AM EST Office Visit Cardiology, [facility] [address] [place] [address] [place] Momin PACrystalC [address] [place] [address] 09/02/2024 10:00 AM EST Cardiac Studies Cardiology, [facility] [address] [facility] [place] [address] [facility] [address] [facility] [place] [address] 09/23/2024 9:00 AM EST Office Visit Family Practice, [place] [address] [place] [facility] [place] [id number] Pete Ambriz MD [address] [place] [address] 05/14/2025 10:00 AM EDT Nurse Only Ancillary Department, [place] [address] [facility] [place] [address] [place], Nurse Annual Wellness [address] [facility] [place] [id number] Scheduled Procedures Name Priority Associated Diagnoses Date/Ti me COLONOSCOPY FLEXIBLE PROXIMA L DIAGNOSTIC Recall History of colonic polyps Scheduled Referrals Name Type Priority Associated Diagnoses Orde r Schedule HIGH RISK OSTEOPOROSIS CLINIC REFERRAL OP Referral Within 10 days (routine) Osteoporosis, unspecified osteoporosis type, unspecified pathological fracture presence Ordered: 06/13/2024 Health Maintenance Due Date Last Done Comments [...] Additional history exists CKD HGB USE SMARTSET 89063 01/28/202501/28, 01/29/2024, 12/27/2023, Additional history exists CKD PHOS USE SMARTSET 54491 01/28/2025 04/0 05/2024, 02/01/2023, 07/29/2022, Additional history [...] D LEVEL ONCE IN A LIFETIME-USE SMARTSET# 05054 Completed 08/28/2008, 04/07/2008, 12/04/2007 Pneumococcal Vaccine: 65+ [...] as of this encounter Visit Diagnoses Diagnosis Osteoporosis, unspecified osteoporosis type, unspecified pathological fracture presence- Primary documented in this encounter Advance Directives * No Code Status (Latest Code Status on File) Date Activated Date Inactivated Comments 01/11/2005 2:56 PM 01/11/2005 3:56 PM Care Teams Switch Tender Relationship Specialty Start Date End Date Pete Ambriz MD [address] [place] [address] PCP - General Internal Medicine 05/08/24 documented as of this encounter
--- OUTSIDE RECORDS SUMMARY | 2024-10-24 23:46 | External Medical Summary | Summary of Care ---
Author Name Unknown Organization [facility] Address [address] [place] [address] Phone [phone] Care Team Providers Care Geological E Logger Name Role Phone Pete Ambriz MD Primary Care Provider [phone] Reason for Referral * Evaluate & Treat - Unlimited Visits (Within 10 days (routine)) - Authorized Specialty Diagnoses / Procedures Referred By Contpratibha t Referred To Contact Rheumatology Diagnoses Osteoporosis, unspecified osteoporosis type, unspecified pathological fracture presence Pete Ambriz MD [address] [place] [address] Referral ID Status Reason Start Date Expiration Date Visits Requested Visits Authorized [id number] Authorized Specialty Services Required 06/13/2024 999 999 Question Answer Referral Priority Within 10 days (routine) Where should this appointment be scheduled? [facility] Encounter Details Date Type Department Care Team (Late st Contact Info) Description 06/11/2024 Telephone [facility] [address] [place] [address] Pete Ambriz MD [address] [place] [address] Allergies Active Allergy Reactions Criticality Noted Date Comments Cephalexin Unknown 09/12/2002 Lisinopril 12/07/2018 Cough Oxycodone 12/04/2003 nausea, stomach pains Tetanus Toxoid 01/28/2009 Local reaction, fever documented as of this encounter (statuses as of 06/13/2024) Medications Medication Sig Dispensed Refills Start Date [...] as of this encounter (statuses as of 06/13/2024) Active Problems Problem Noted Date Diagnosed Date [...] macular edema, left eye 12/28/2020 Atherosclerosis of [place] ronary artery of [place] heart without angina pectoris 12/19/2019 Persistent atrial fibrillation 11/28/2019 HTN, goal below 130/80 04/26/2019 Type 2 diabetes mellitus with diabetic neuropath y 02/11/2019 Chronic diarrhea 05/14/2010 Type 2 diabetes mellitus wit h hemoglobin A1c goal of 7.0%-8.0% 01/08/2010 Overview: ICD-10 update of inactive term DYSLIPIDEMIA, GOAL LDL BELOW 70 10/12/2009 Overview: Per Lipid Taxonomy. 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 Pulmonary hypertension DISH (diffuse idiopathic skeletal hyperostosis) documented as of this encounter (statuses as of 06/13/2024) Resolved Problems Problem Noted Date Diagnosed Date [...] Nummular eczema 09/06/2013 07/26/2021 [employer] Other*[id number] 02/03/2012 11/29/2016 Overview: Study Titile: [employer] Markers for Patients with Cardiovascular Disease Project # [id number] PI: Merary Rivera MD Please call [phone] with study related questions Irritable bowel syndrome 05/14/201001/2021 Type 2 diabetes mellitus wit h hemoglobin A1c goal of less than 7.0% 08/06/2009 01/08/2010 Overview: Modified per Diabetes protocol #14. ICD-10 update of inactive term ADVANCE DIRECTIVE INFORMATION 09/27/2007 07/26/2021 Overview: Yes-copy on file Carpal tunnel syndrome 04/14/200404/01 Atherosclerosis of [place] co ronary artery of [place] heart without angina pectoris 04/14/2004 Overview: Duplicate. [...] as of this encounter (statuses as of 06/13/2024) Immunizations Name Administration Dates Next Due COVID-19 [...] encounter Miscellaneous Notes * Addendum Note - Pete Ambriz MD [...] Care Team (Late st Contact Info) Description 06/14/2024 9:00 AM EDT Cardiac Studies Cardiology, [facility] [address] [facility] [place] [address] Billy Barber [facility] [address] [place] [address] 07/01/2024 1:30 PM EDT Office [facility] [place] [address] [facility] [address] [facility] [address] [facility], [place] [address] 07/01/2024 1:40 PM EDT Anticoagulation Pharmacy, [place] [address] [facility] [address] [facility] [address] [facility], [place] [address] 09/02/2024 10:00 AM EST Office Visit Cardiology, [facility] [address] [facility] [place] [address] [place] Momin PA-C [address] [facility] [place] [address] 09/23/2024 9:00 AM EST Office Visit Family Practice, [place] [address] [facility] [address] Pete Ambriz MD [address] [facility] [address] 05/14/2025 10:00 AM EDT Nurse Only Ancillary Department, [place] [address] [facility] [address] [place], Nurse [facility] [address] [facility] [address] Scheduled Procedures Name Priority Associated Diagnoses Date/Ti [...] 05/24/2024, 04/0 05/2024, 07/25/2023, Additional history exists Diabetic Eye Exam 12/01/2024 12/01/2023, , 11/15/2022, Additional history exists B-12 01/28/2025 01/29/2024, 01/21, 07/29/2022, Additional history exists CKD HGB USE SMARTSET 47506 01/28/202501/28, 01/29/2024, 12/27/2023, Additional history exists CKD PHOS USE SMARTSET 27385 01/28/2025 04/0 05/2024, 02/01/2023, 07/29/2022, Additional history exists Diabetic Foot Exam 04/23/2025 04/23/2024, 1 , 07/26/2021, Additional history exists Adult Wellness Visit 05/08/2025 05/08/2024, 05/05/20 23 Depression Screening 05/08/2025 05/08/2024 Albumin/Creatinine Ratio 05/24/2025 082 024, 07/25/2023, 02/01/2023, Additional history exists DXA Scan 06/04/2026 06/04/2024, 02/20, 03/01/2022, Additional history exists VITAMIN D LEVEL ONCE IN A LIFETIME-USE SMARTSET# 72144 Completed 08/28/2008, 04/07/2008, 12/04/2007 Pneumococcal Vaccine: 65+ [...] 2:56 PM 01/11/2005 3:56 PM Care Teams Geological E Logger Relationship Specialty Start Date End Date Pete Ambriz MD [address] [place] [address] PCP - General Internal Medicine 05/08/24 documented as of this encounter
--- OUTSIDE RECORDS SUMMARY | 2024-10-24 23:46 | External Medical Summary | Summary of Care ---
Author Name Unknown Organization [facility] Address [address] [facility] [place] [address] Phone [phone] Care Team Providers Care Technical Applications Scientist Name Role Phone Pete Ambriz MD Primary Care Provider [phone] Reason for Visit * Reason Comments Cardiac Rehab Encounter Details Date Type Department Care Team (Late st Contact Info) Description 06/03/2024 10:00 AM EDT Telemedicine Cardiac Re[facility] [address] [place] [address] [place] [address] [facility] [address] [place] [address] [place] [address] Aortocoronary bypass status* Allergies Active Allergy Reactions [...] left eye 12/28/2020 Atherosclerosis of [place] co ronary artery of [place] heart without angina pectoris 12/19/2019 Persistent atrial fibrillation 11/28/2019 HTN, goal below 130/80 04/26/2019 Type 2 diabetes mellitus with diabetic neuropath y 02/11/2019 Chronic diarrhea 05/14/2010 Type 2 diabetes mellitus wit h hemoglobin A1c goal of 7.0%-8.0% 01/08/2010 Overview: ICD-10 update of inactive term DYSLIPIDEMIA, GOAL LDL BELOW 70 10/12/2009 Overview: Per Lipid Taxonomy. 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 ICD-10 update of inactive term ADVANCE DIRECTIVE INFORMATION 09/27/2007 07/26/2021 Overview: Yes-copy on file Carpal tunnel syndrome 04/14/200404/01 Atherosclerosis of [place] co ronary artery of [place] heart without angina pectoris 04/14/2004 Overview: Duplicate. [...] mRNA, LNP-s, No Pre serve, 2-Dose Series ([employer]) 06/22/2021,05/08/2021 Pneumococcal Conjugate Vacc, 13 Valent (Prevnar) [...] No 05/24/2024 Does the household have a [facility] source of income? (Household [...] Hali De La Torre EPC - 06/15/2024 10:24 AM EDT Session Encounter: Patient is participating in [facility]'s Intensive Cardiac Rehab Program in partnership with [employer] is a specialized [employer] that specializes in providing virtual cardiac rehab services. Session #8 completed. Please refer to scan document for session details. Session type: Exercise Individual Session duration: 35 minutes documented in this encounter Plan of Treatment Upcoming Encounters Date Type Department Care Team (Late st Contact Info) Description 07/01/2024 1:30 PM EDT Office Visit [place] [address] [place] [address] [facility] [address] [place] [address] 07/01/2024 1:40 PM EDT Anticoagulation [place] [address] [place] [address] [place] [facility] [address] [place] [address] 09/02/2024 10:00 AM EST Office Visit Cardiology, [facility] [address] [facility] [place] [address] [place] Momin PA-C [address] [facility] [place] [place] [address] 09/02/2024 10:00 AM EST Cardiac Studies Cardiology, [facility] [address] [facility] [place] [place] [address] [facility] [address] [facility] [place] [address] 09/23/2024 9:00 AM EST Office Visit Family [facility], [place] [address] [place] [facility] [place] [phone] Pete Ambriz MD [address] [place] [facility] [place] [id number] 05/14/2025 10:00 AM EDT Nurse Only Ancillary Department, [place] [address] [facility] [address] [place], Nurse Annual Wellness [address] [place] [place] [id number] Scheduled Procedures Name Priority Associated Diagnoses Date/Ti [...] Additional history exists CKD HGB USE SMARTSET 64775 01/28/202501/28, 01/29/2024, 12/27/2023, Additional history exists CKD PHOS USE SMARTSET 08820 01/28/20250 05/2024, 02/01/2023, 07/29/2022, Additional history exists [...] D LEVEL ONCE IN A LIFETIME-USE SMARTSET# 11842 Completed 08/28/2008, 04/07/2008, 12/04/2007 Pneumococcal Vaccine: 65+ [...] 2:56 PM 01/11/2005 3:56 PM Care Teams Technical Applications Scientist Relationship Specialty Start Date End Date Pete Ambriz MD [address] [place] [address] PCP - General Internal Medicine 05/08/24 documented as of this encounter
--- OUTSIDE RECORDS SUMMARY | 2024-10-24 23:46 | External Medical Summary | Summary of Care ---
Author Name Unknown Organization [facility] Address [address] [facility] [place] [address] Phone [phone] Care Team Providers Care Coil Maker Name Role Phone Pete Ambriz MD Primary Care Provider [phone] Reason for Visit * Reason Comments Cardiac Rehab Encounter Details Date Type Department Care Team (Late st Contact Info) Description 06/07/2024 9:00 AM EDT Telemedicine Cardiac Re[facility] [address] [place] [address] [place] [address] [facility] Card[facility] Re[facility] [address] [place] [address] [place] [address] Aortocoronary bypass status* Allergies Active Allergy Reactions [...] on management encounter,Aortocoro nary bypass status,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),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 TAKE 1/2 [...] macular edema, left eye 12/28/2020 Atherosclerosis of [place] co ronary artery of [place] heart without angina pectoris 12/19/2019 Persistent atrial [...] Nummular eczema 09/06/2013 07/26/2021 [employer] Other*[id number] 02/03/2012 11/29/2016 Overview: Study Titile: [employer] Markers for Patients with Cardiovascular Disease Project # [id number] PI: Merary Rivera MD Please call [phone] with study related questions Irritable bowel syndrome 05/14/201001/2021 Type 2 diabetes mellitus wit h hemoglobin A1c goal of less than 7.0% 08/06/2009 01/08/2010 Overview: Modified per Diabetes protocol #14. ICD-10 update of inactive term ADVANCE DIRECTIVE INFORMATION 09/27/2007 07/26/2021 Overview: Yes-copy on file Carpal tunnel syndrome 04/14/200404/01 Atherosclerosis of [place] co ronary artery of [place] heart without angina pectoris 04/14/2004 Overview: Duplicate. [...] mRNA, LNP-s, No Pre serve, 2-Dose Series ([employer]) 06/22/2021,05/08/2021 Pneumococcal Conjugate Vacc, 13 Valent (Prevnar) [...] No 05/24/2024 Does the household have a [facility] source of income? (Household - for [...] Hali De La Torre EPC - 06/15/2024 10:35 AM EDT Session Encounter: Patient is participating in [facility]'s Intensive Cardiac Rehab Program in partnership with [employer] is a specialized [employer] that specializes in providing virtual cardiac rehab services. Session #10 completed. Please refer to scan document for session details. Session type: Education Group Session duration: 60 minutes documented in this encounter Plan of Treatment Upcoming Encounters Date Type Department Care Team (Late st Contact Info) Description 07/01/2024 1:30 PM EDT Office Visit [place] [address] [place] [address] [facility] [address] [place] [address] 07/01/2024 1:40 PM EDT Anticoagulation [place] [address] [place] [address] [place] [address] [place] [address] 09/02/2024 10:00 AM EST Office Visit Cardiology, [facility] [address] [facility] [place] [address] [place] Momin PA-C [address] [facility] [place] [address] 09/02/2024 10:00 AM EST Cardiac Studies Cardiology, [facility] [address] [place] [place] [address] Billy Barber [facility] [address] [facility] [place] [address] 09/23/2024 9:00 AM EST Office Visit Family [facility], [place] [address] [place] [facility] [place] [address] Pete Ambriz MD [address] [place] [facility] [place] [address] 05/14/2025 10:00 AM EDT Nurse Only Ancillary Department, [place] [address] [facility] [address] [place], Nurse Annual Wellness [address] [place] [place] [address] Scheduled Procedures Name Priority Associated Diagnoses Date/Ti [...] Additional history exists CKD HGB USE SMARTSET 02370 01/28/202501/28, 01/29/2024, 12/27/2023, Additional history exists CKD PHOS USE SMARTSET 50994 01/28/20250 05/2024, 02/01/2023, 07/29/2022, Additional history exists [...] D LEVEL ONCE IN A LIFETIME-USE SMARTSET# 27581 Completed 08/28/2008, 04/07/2008, 12/04/2007 Pneumococcal Vaccine: 65+ [...] 2:56 PM 01/11/2005 3:56 PM Care Teams Coil Maker Relationship Specialty Start Date End Date Pete Ambriz MD [address] [place] [address] PCP - General Internal Medicine 05/08/24 documented as of this encounter
--- OUTSIDE RECORDS SUMMARY | 2024-10-24 23:46 | External Medical Summary | Summary of Care ---
Author Name Unknown Organization [facility] Address [address] [place] [address] Phone [phone] Care Team Providers Care Project Facilitator Name Role Phone Pete Ambriz MD Primary Care Provider [phone] Reason for Referral * Evaluate & Treat - Unlimited Visits (Within 10 days (routine)) - Authorized Specialty Diagnoses / Procedures Referred By Contpratibha t Referred To Contact Rheumatology Diagnoses Osteoporosis, unspecified osteoporosis type, unspecified pathological fracture presence Pete Ambriz MD [address] [place] [address] Referral ID Status Reason Start Date Expiration Date Visits Requested Visits Authorized [id number] Authorized Specialty Services Required 06/13/[phone] Question Answer Referral Priority Within 10 days (routine) Where should this appointment be scheduled? [facility] Encounter Details Date Type Department Care Team (Late st Contact Info) Description 06/11/2024 Telephone [facility] [address] [place] [address] Pete Ambriz MD [address] [place] [address] Allergies Active Allergy Reactions Criticality Noted Date Comments Cephalexin Unknown 09/12/2002 Lisinopril 12/07/2018 Cough Oxycodone 12/04/2003 nausea, stomach pains Tetanus Toxoid 01/28/2009 Local reaction, fever documented as of this encounter (statuses as of 06/18/2024) Medications Medication Sig Dispensed Refills Start Date [...] as of this encounter (statuses as of 06/18/2024) Active Problems Problem Noted Date Diagnosed Date [...] macular edema, left eye 12/28/2020 Atherosclerosis of [place] co ronary artery of [place] heart without angina pectoris 12/19/2019 Persistent [...] as of this encounter (statuses as of 06/18/2024) Resolved Problems Problem Noted Date Diagnosed Date [...] Nummular eczema 09/06/2013 07/26/2021 [employer] Other*[id number] 02/03/2012 11/29/2016 Overview: Study Titile: [employer] Markers for Patients with Cardiovascular Disease Project # [id number] PI: Merary Rivera MD Please call [phone] with study related questions Irritable bowel syndrome 05/14/201001/2021 Type 2 diabetes mellitus wit h hemoglobin A1c goal of less than 7.0% 08/06/2009 01/08/2010 Overview: Modified per Diabetes protocol #14. ICD-10 update of inactive term ADVANCE DIRECTIVE INFORMATION 09/27/2007 07/26/2021 Overview: Yes-copy on file Carpal tunnel syndrome 04/14/200404/01 Atherosclerosis of [place] co ronary artery of [place] heart without angina pectoris 04/14/2004 Overview: [...] as of this encounter (statuses as of 06/18/2024) Immunizations Name Administration Dates Next Due COVID-19 [...] Telephone Encounter - Laverne Delgado OSA - 06/18/2024 9:23 AM EDT Done. 06/18/2024 * Telephone Encounter - Laverne Delgado OSA [...] 06/26/2024 11:00 AM EDT Office Visit Rheumatology [place] [address] [facility] [place] [address] Jairo Owen PA-C [facility] [facility] [place] [address] 07/01/2024 1:30 PM EDT Office Visit Pharmacy, [place] [address] [facility] [address] [facility] [address] [place] [facility] [place] [address] 07/01/2024 1:40 PM EDT Anticoagulation Pharmacy, [place] [address] [facility] [address] [facility] [address] [place] [facility] [place] [address] 09/02/2024 10:00 AM EST Office Visit Cardiology, [facility] [address] [place] [address] Dayton Momin PA-C [address] [place] [address] 09/02/2024 10:00 AM EST Cardiac Studies Cardiology, [facility] [address] [place] [address] Sunil Pacer [facility] [address] [facility] [place] [address] 09/23/2024 9:00 AM EST Office Visit Family Practice, [place] [address] [facility] [phone] Pete Ambriz MD [address] [place] [facility] [place] [address] 05/14/2025 10:00 AM EDT Nurse Only Ancillary Department, [place] [address] [facility] [address] [place], Nurse [facility] [address] [facility] [address] Scheduled Procedures Name Priority Associated Diagnoses Date/Ti [...] 10/01/2019, Additional history exists GFR 11/24/2024 05/24/2024, 03/2024, 07/25/2023, Additional history exists HbA1c 11/24/2024 05/24/2024, 0405/2024, 07/25/2023, Additional history exists B-12 01/28/2025 01/29/2024, 01/21, 07/29/2022, Additional history exists CKD HGB USE SMARTSET 77867 01/28/202501/28, 01/29/2024, 12/27/2023, Additional history exists CKD PHOS USE SMARTSET 27927 01/28/2025 04/0 05/2024, 02/01/2023, 07/29/2022, Additional history [...] D LEVEL ONCE IN A LIFETIME-USE SMARTSET# [id number] Completed 08/28/2008, 04/07/2008, 12/04/2007 Pneumococcal Vaccine: 65+ [...] 2:56 PM 01/11/2005 3:56 PM Care Teams Project Facilitator Relationship Specialty Start Date End Date Pete Ambriz MD [address] [place] [address] PCP - General Internal Medicine 05/08/24 documented as of this encounter
--- OUTSIDE RECORDS SUMMARY | 2024-10-24 23:46 | External Medical Summary | Summary of Care ---
Author Name Unknown Organization [facility] Address [address] [place] [address] Phone [phone] Care Team Providers Care Covered Buckle Assembler Name Role Phone Pete Ambriz MD Primary Care Provider [phone] Reason for Visit * Reason Onset Date Comments FYI 06/17/2024 Encounter Details Date Type Department Care Team (Late st Contact Info) Description 06/17/2024 Telephone [facility] [address] [place] [address] Pete Ambriz MD [address] [place] [address] FYI Allergies Active Allergy Reactions Criticality Noted Date [...] macular edema, left eye 12/28/2020 Atherosclerosis of [place] co ronary artery of [place] heart without angina pectoris 12/19/2019 Persistent atrial [...] Nummular eczema 09/06/2013 07/26/2021 [employer] Other*[id number] 02/03/2012 11/29/2016 Overview: Study Titile: [employer] Markers for Patients with Cardiovascular Disease Project # [id number] PI: Merary Rivera MD Please call [phone] with study related questions Irritable bowel syndrome 05/14/201001/2021 Type 2 diabetes mellitus wit h hemoglobin A1c goal of less than 7.0% 08/06/2009 01/08/2010 Overview: Modified per Diabetes protocol #14. ICD-10 update of inactive term ADVANCE DIRECTIVE INFORMATION 09/27/2007 07/26/2021 Overview: Yes-copy on file Carpal tunnel syndrome 04/14/200404/01 Atherosclerosis of [place] co ronary artery of [place] heart without angina pectoris 04/14/2004 Overview: Duplicate. [...] No 05/24/2024 Does the household have a rustlar source of income? (Household - for ages [...] encounter Miscellaneous Notes * Telephone Encounter - Sheila George OSA - 06/17/2024 9:02 AM EDT Esperanza says she lives with patient and patient called her to call us to get information onwhy we called. She could not provide privacy code, so advised can not give her any information. Shesaid patient with eye doctor. I informed her to have patient or call back. She said ok. documented in this encounter Plan of Treatment Upcoming Encounters Date Type Department Care Team (Late st Contact Info) Description 07/01/2024 1:30 PM EDT Office Visit Pharmacy, [place] [address] [facility], [place] [address] [facility] [address] [facility], [place] [address] 07/01/2024 1:40 PM EDT Anticoagulation Pharmacy, [place] [address] [facility], [place] [address] [facility] [address] [facility], [place] [address] 09/02/2024 10:00 AM EST [facility] Visit [facility] [address] [place] Momin PA-C [facility] [place] [address] 09/02/2024 10:00 AM EST Cardiac Studies Cardiology, [facility] [address] [facility] [address] [address] [facility] [address] 09/23/2024 9:00 AM EST Office Visit Family Practice, [place] [address] [facility] [address] Pete Ambriz MD [address] [facility] [address] 05/14/2025 10:00 AM EDT Nurse Only Ancillary Department, [place] [address] [facility], [place] [address] [place], Nurse Annual Wellness [address] [facility], [place] [address] Scheduled Procedures Name Priority Associated Diagnoses Date/Ti [...] Additional history exists CKD HGB USE SMARTSET 02273 01/28/202501/28, 01/29/2024, 12/27/2023, Additional history exists CKD PHOS USE SMARTSET 65943 01/28/2025 04/0 05/2024, 02/01/2023, 07/29/2022, Additional history [...] D LEVEL ONCE IN A LIFETIME-USE SMARTSET# [id number] Completed 08/28/2008, 04/07/2008, 12/04/2007 Pneumococcal Vaccine: 65+ [...] 2:56 PM 01/11/2005 3:56 PM Care Teams Covered Buckle Assembler Relationship Specialty Start Date End Date Pete Ambriz MD [address] [place] [facility] [place] [address] PCP - General Internal Medicine 05/08/24 documented as of this encounter
--- OUTSIDE RECORDS SUMMARY | 2024-10-24 23:46 | External Medical Summary | Summary of Care ---
Author Name Unknown Organization [facility] Address [address] [place] [address] Phone [phone] Care Team Providers Care Chainstitch Tunnel Elastic Operator Name Role Phone Pete Ambriz MD Primary Care Provider [phone] Encounter Details Date Type Department Care Team (Latest Contact Info) Description 06/12/2024 Medication Management [facility] [address] [place], [place] [id number] Shania Novak, [facility] [address] [place] [address] Referred for management of medication therapy* Allergies Active Allergy Reactions Criticality Noted Date Comments Cephalexin Unknown 09/12/2002 Lisinopril 12/07/2018 Cough Oxycodone 12/04/2003 nausea, stomach pains Tetanus Toxoid 01/28/2009 Local reaction, fever documented as of this encounter (statuses as of 06/12/2024) Medications Medication Sig Dispensed Refills Start Date [...] as of this encounter (statuses as of 06/12/2024) Active Problems Problem Noted Date Diagnosed Date [...] macular edema, left eye 12/28/2020 Atherosclerosis of [place] co ronary artery of [place] heart without angina pectoris 12/19/2019 Persistent atrial fibrillation 11/28/2019 HTN, goal below 130/80 04/26/2019 Type 2 diabetes mellitus with diabetic neuropath y 02/11/2019 Chronic diarrhea 05/14/2010 Type 2 diabetes mellitus wit h hemoglobin A1c goal of 7.0%-8.0% 01/08/2010 Overview: ICD-10 update of inactive term DYSLIPIDEMIA, GOAL LDL BELOW 70 10/12/2009 Overview: Per Lipid Taxonomy. 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 0 05/27/2005 Overview: ICD-10 update of inactive term Aortocoronary bypass status 10/17/2002 NONTOX MULTINODUL GOITER Cardiac pacemaker in situ Overview: medtronic dual chamber for tachybrady Pulmonary hypertension DISH (diffuse idiopathic skeletal hyperostosis) documented as of this encounter (statuses as of 06/12/2024) Resolved Problems Problem Noted Date Diagnosed Date [...] Nummular eczema 09/06/2013 07/26/2021 [employer] Other*[id number] 02/03/2012 11/29/2016 Overview: Study Titile: [employer] Markers for Patients with Cardiovascular Disease Project # [id number] PI: Merary Rivera MD Please call [phone] with study related questions Irritable bowel syndrome 05/14/201001/2021 Type 2 diabetes mellitus wit h hemoglobin A1c goal of less than 7.0% 08/06/2009 01/08/2010 Overview: Modified per Diabetes protocol #14. ICD-10 update of inactive term ADVANCE DIRECTIVE INFORMATION 09/27/2007 07/26/2021 Overview: Yes-copy on file Carpal tunnel syndrome 04/14/200404/01 Atherosclerosis of [place] co ronary artery of tribe heart without angina pectoris 04/14/2004 Overview: [...] as of this encounter (statuses as of 06/12/2024) Immunizations Name Administration Dates Next Due COVID-19 mRNA, LNP-s, No Pre serve, 2-Dose Series (TimeLynes) 06/22/2021,05/08/2021 Pneumococcal Conjugate Vacc, 13 Valent (Prevnar) [...] No 05/24/2024 Does the household have a [employer] source of income? (Household - for ages [...] Progress Notes * Shania Novak, [facility] - 06/12/2024 12:58 PM EDT Tootie Almanza is a 84 year old female. Objective: Review of patient's allergies indicates: Allergen Reactions Cephalexin Unknown Lisinopril Cough Oxycodone nausea, stomach pains Tetanus Toxoid Local reaction, fever Current Outpatient Medications - WARNING: List may be incomplete due to filtering Medication Sig Dispense Refill Aspirin 81 MG Oral Capsule Take by mouth every morning. Repaglinide 1 MG Oral Tablet (Prandin) Take 1 Tablet by mouth in the morning and 1 Tablet at noon and 1 Tablet in the evening. Take before meals. 270 Tablet 1 Systane Nighttime Ophthalmic Ointment Instill into eye at bedtime. Vitamin E 180 MG (400 UNIT) Oral Capsule Take 1 Capsule by mouth in the morning. Pt unsure of dose/strength. metFORMIN HCl ER 500 MG Oral Tablet Extended Release 24 Hour (Glucophage XR) TAKE 2 TABLETS BY MOUTH DAILY WITH MEALS Warfarin Sodium 2 MG Oral Tablet (Coumadin) TAKE 1/2 TO 1 TABLET BY MOUTH ONCE DAILY [facility] 90 Tablet 3 Acetaminophen ER 650 MG Oral Tablet Extended Release (Tylenol 8 Hour Arthritis Pain) Take 1 Tablet by mouth every 8 hours as needed. DULoxetine HCl 30 MG Oral Capsule Delayed Release Particles (Cymbalta) Take 2 Capsules by mouth in the morning. Fluticasone Propionate 50 MCG/ACT Nasal Suspension (Flonase) Administer 2 Sprays into each nostril in the morning. 16 g 5 Joint Health Oral Capsule Take by mouth. Montelukast Sodium 10 MG Oral Tablet (Singulair) Take 1 Tablet by mouth in the morning. 90 Tablet 3 Nitroglycerin 0.4 MG Sublingual Tablet Sublingual (Nitrostat) Place 1 Tablet under the tongue every5 minutes as needed (up to three tablets). Up to 3 doses in 15 minutes. 12 Tablet 3 Metoprolol Tartrate 100 MG Oral Tablet (Lopressor) TAKE 1 TABLET BY MOUTH TWICE DAILY 180 Tablet 3 Empagliflozin 25 MG Oral Tablet (Jardiance) Take 1 Tablet by mouth in the morning. 100 Tablet 3 Losartan Potassium 100 MG Oral Tablet (Cozaar) TAKE ONE TABLET BY MOUTH ONCE DAILY 90 Tablet 3 Rosuvastatin Calcium 20 MG Oral Tablet (Crestor) TAKE ONE TABLET BY MOUTH ONCE DAILY 90 Tablet 3 Insulin Glargine Solostar 100 UNIT/ML Subcutaneous Solution Pen-injector (Basaglar KwikPen) Inject 30 Units under the skin daily. (Patient taking differently: Inject 25 Units under the skin daily.) 30 mL 3 Potassium Gluconate 595 (99 K) MG Oral Tablet Take by mouth daily. Furosemide 20 MG Oral Tablet (Lasix) TAKE TWO TABLETS BY MOUTH ONCE DAILY ON MONDAY, MONDAY, ANDIDAY. TAKE 1 TAB ONCE DAILY ALL OTHER DAYS OF THE WEEK 135 Tablet 3 B-12 500 MCG Oral Tablet Take by mouth 1 Tablet daily . Vitamin D 50 MCG (2000 UT) Oral Capsule Take 5,000 Units by mouth at bedtime. Triamcinolone Acetonide 0.1 % External Cream (Aristocort) Apply topically to affected area 2 times a day. To affected area. (Patient not taking: Reported on 06/12/2024) 15 g 5 Insulin Pen Needle 29G X 12MM (B/D Ultrafine) Use to inject basaglar once daily. 100 Each 3 Immunization History Administered Date(s) Administered COVID-19 mRNA, LNP-s, No Preserve, 2-Dose Series (Pfizer) 05/08/2021, 06/22/2021 Diptheria/Tetanus (Adult) 06/10/1997 Pneumococcal Conjugate Vacc, 13 Valent (Prevnar) 08/12/2016 Pneumococcal Polysaccharide PPV23 (Pneumovax) 07/20/2005, 05/08/2018 Seasonal Influenza, Quadrivalent Hd (Fluzone Hd) 09/23/2022, 08/30/2023 Seasonal Influenza, Split, IIV3, With Preserve, Inj 08/16/2004, 07/29/2005, 08/04/2006 Seasonal Influenza, Trivalent, Adjuvanted, 65+ yrs 10/01/2019 TD, Preservative Free 01/26/2009 TMR Interventions Incomplete Encounter MTPs No medication therapy recommendations to display Complete Encounter MTPs Persistent atrial fibrillation (HCC) Current Medication: Warfarin Sodium 2 MG Oral Tablet (Coumadin) Rationale: Medication requires monitoring - Needs additional monitoring Recommendation: Continue to Monitor Status: Accepted per CPA Note: pt is adherent with INR checks with Elise Florence. Assessment & Plan Indication, effectiveness, safety and convenience of her medications were reviewed today. The patient's medical conditions were assessed, evaluated, and deemed meeting goals of drug therapy, with thefollowing exceptions. Additional Notes: No additional notes Mail order has been offered to patient before and she has declined- she gets pill packs at her current pharmacy. Summary Time Spent: 1-15 min Supervising pharmacist who provided the service: Chiqui Aiken Information Who was the recipient of the CMR service: beneficiary Language Template for the Patient Takeaway: Wolof I attest that I have reviewed and updated the patient's conditions, allergies, and medications to the best of my ability. Shania Novak RPh 06/12/2024, 12:58 PM documented in this encounter Miscellaneous Notes * MTM Personal Medication List - Shania Novak [facility] - 06/12/2024 12:58 PM EDT Medication How I take it Why I use it Prescriber Acetaminophen ER 650 MG Oral Tablet Extended Release (Tylenol 8 Hour Arthritis Pain) Take 1 Tablet by mouth every 8 hours as needed. Pain Self Aspirin 81 MG Oral Capsule Take 1 tablet by mouth every morning. Heart Health Self B-12 500 MCG Oral Tablet Take by mouth 1 Tablet daily . Supplement Self DULoxetine HCl 30 MG Oral Capsule Delayed Release Particles (Cymbalta) Take 2 Capsules by mouth in the morning. Pain Self Empagliflozin 25 MG Oral Tablet (Jardiance) Take 1 Tablet by mouth in the morning. Diabetes Pete Ambriz MD Fluticasone Propionate 50 MCG/ACT Nasal Suspension (Flonase) Administer 2 Sprays into each nostril in the morning. Runny nose Pete Ambriz MD Furosemide 20 MG Oral Tablet (Lasix) TAKE TWO TABLETS BY MOUTH ONCE DAILY ON MONDAY, MONDAY, ANDMONDAY. TAKE 1 TAB ONCE DAILY ALL OTHER DAYS OF THE WEEK Fluid retention Dayton Momin PA-C Insulin Glargine Solostar 100 UNIT/ML Subcutaneous Solution Pen-injector (Basaglar KwikPen) Inject 25 Units under the skin daily. Diabetes Pete Ambriz MD Joint Health Oral Capsule Take 1 capsule by mouth daily Supplement Self Losartan Potassium 100 MG Oral Tablet (Cozaar) Take one tablet by mouth daily High blood pressure Pete Ambriz MD metFORMIN HCl ER 500 MG Oral Tablet Extended Release 24 Hour (Glucophage XR) TAKE 2 TABLETS BY MOUTH DAILY WITH MEALS Diabetes Pete Ambriz MD Metoprolol Tartrate 100 MG Oral Tablet (Lopressor) TAKE 1 TABLET BY MOUTH TWICE DAILY Heart rate control TEZ Bonner Montelukast Sodium 10 MG Oral Tablet (Singulair) Take 1 Tablet by mouth in the morning. Marquisny nose Pete Ambriz MD Nitroglycerin 0.4 MG Sublingual Tablet Sublingual (Nitrostat) Place 1 Tablet under the tongue every5 minutes as needed (up to three tablets). Up to 3 doses in 15 minutes. Chest pain Pete Ambriz MD Potassium Gluconate 595 (99 K) MG Oral Tablet Take 1 tablet by mouth daily supplement Self Repaglinide 1 MG Oral Tablet (Prandin) Take 1 Tablet by mouth in the morning and 1 Tablet at noon and 1 Tablet in the evening. Take before meals. Diabetes Pete Ambriz MD Rosuvastatin Calcium 20 MG Oral Tablet (Crestor) TAKE ONE TABLET BY MOUTH ONCE DAILY Cholesterol Dayton Momin PA-C Systane Nighttime Ophthalmic Ointment Instill into eye at bedtime. Eye health Self Vitamin D 50 MCG (2000 UT) Oral Capsule Take 5,000 Units by mouth at bedtime. Supplement Self Vitamin E 180 MG (400 UNIT) Oral Capsule Take 1 Capsule by mouth in the morning. Supplement Self Warfarin Sodium 2 MG Oral Tablet (Coumadin) TAKE 1/2 TO 1 TABLET BY MOUTH ONCE DAILY [facility] Irregular heartbeat Pete Ambriz MD * MTM To-Do-List - Shania Novak [facility] - 06/12/2024 12:55 PM EDT Images from the original note were not included. What we talked about: What I should do: The importance of taking your medication as prescribed Your medicine works best when taken as prescribed. It can be hard to remember to take daily medications. Consider making it a part of your daily routine. Pair taking your medication with something you do every day, like brushing your teeth or eating a meal. Consider setting daily alarms to help remind yourself when it is time to take your medicine. Using a pill box can also help you organize your medicines. Pill boxes allow you to fill each day slot with your daily medicine and help you track when your next dose is due. What we talked about: What I should do: Overall medication list reviewed You were not sure if you take Duloxetine (Cymbalta). It is listed on your medication list as you taking 2 capsules daily. If you do not take it, please call [phone] to inform of us this so we can update your medication list in your chart and cancel any further prescriptions for it. It is commonly used for mood, as well as to help with pain. documented in this encounter Plan of Treatment Upcoming Encounters Date Type Department Care Team (Late st Contact Info) Description 06/14/2024 9:00 AM EDT Cardiac Studies [facility], [facility] [address] [facility] [address] [facility] [address] [facility] [address] 07/01/2024 1:30 PM EDT Office Visit Pharmacy, [place] [address] [address] [facility], [place] [address] [facility] [address] [facility], [place] [address] 07/01/2024 1:40 PM EDT Anticoagulation Pharmacy, [place] [address] [facility] [address] [facility] [address] [facility], [place] [address] 09/02/2024 10:00 AM EST Office Visit Cardiology, [facility] [address] [facility] [place] [address] [place] Momin [facility]-C [address] [facility] [address] 09/23/2024 9:00 AM EST Office Visit Family [facility], [place] [address] [address] [facility] [id number] Pete Ambriz MD [address] [facility] [address] 05/14/2025 10:00 AM EDT Nurse Only Ancillary Department, [place] [address] [place] [address] [place], Nurse Annual [facility] [address] [place] [address] Scheduled Procedures Name Priority Associated Diagnoses Date/Ti [...] Additional history exists CKD HGB USE SMARTSET 31698 01/28/202501/28, 01/29/2024, 12/27/2023, Additional history exists CKD PHOS USE SMARTSET 06381 01/28/2025 04/0 05/2024, 02/01/2023, 07/29/2022, Additional history exists Diabetic Foot Exam 04/23/2025 04/23/2024, 1 , 07/26/2021, Additional history exists Adult Wellness Visit 05/08/2025 05/08/2024, 05/05/20 23 Depression Screening 05/08/2025 05/08/2024 Albumin/Creatinine Ratio 05/24/2025 024, 07/25/2023, 02/01/2023, Additional history exists DXA Scan 06/04/2026 06/04/2024, 02/20, 03/01/2022, Additional history exists VITAMIN D LEVEL ONCE IN A LIFETIME-USE SMARTSET# 49008 Completed 08/28/2008, 04/07/2008, 12/04/2007 Pneumococcal Vaccine: 65+ [...] as of this encounter Visit Diagnoses Diagnosis Referred for management of medication therapy- Primary Encounter for long-term (current) use of other medications documented in this encounter Advance Directives * No Code Status (Latest Code Status on File) Date Activated Date Inactivated Comments 01/11/2005 2:56 PM 01/11/2005 3:56 PM Care Teams Chainstitch Tunnel Elastic Operator Relationship Specialty Start Date End Date Pete Ambriz MD [address] [place] [address] PCP - General Internal Medicine 05/08/24 documented as of this encounter
--- OUTSIDE RECORDS SUMMARY | 2024-10-24 23:47 | External Medical Summary | Summary of Care ---
Author Name Unknown Organization [facility] Address [address] [place] [address] Phone [phone] Care Team Providers Care Mail Truck Driver Name Role Phone Pete Ambriz MD Primary Care Provider [phone] Reason for Visit * Reason Comments Dosage Adjustment In Person (Anticoag Cl inic) Encounter Details Date Type Department Care Team (Latest Contact Info) Description 06/12/2024 11:10 AM EDT Anticoagulation Pharmacy, [address] [address] [facility] [address] [place] [address] Anticoagulation management encounter*; Persistent atrial fibrillation (HCC) [...] on management encounter,Aortocoro nary bypass status,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),manager intermediate current use [...] macular edema, left eye 12/28/2020 Atherosclerosis of [place] ronary artery of [place] heart without angina pectoris 12/19/2019 Persistent atrial fibrillation 11/28/2019 HTN, goal below 130/80 04/26/2019 Type 2 diabetes mellitus with diabetic neuropath y 02/11/2019 Chronic diarrhea 05/14/2010 Type 2 diabetes mellitus wit h hemoglobin A1c goal of 7.0%-8.0% 01/08/2010 Overview: ICD-10 update of inactive term DYSLIPIDEMIA, GOAL LDL BELOW 70 10/12/2009 Overview: Per Lipid Taxonomy. 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 ICD-10 update of inactive term ADVANCE DIRECTIVE INFORMATION 09/27/2007 07/26/2021 Overview: Yes-copy on file Carpal tunnel syndrome 04/14/200404/01 Atherosclerosis of [place] co ronary artery of [place] heart without angina pectoris 04/14/2004 Overview: Duplicate. [...] Progress Notes * Shania Novak RPh - 06/12/2024 11:04 AM EDT Medication Therapy Disease Management - Anticoagulation Patient: Tootie Almanza | : 1940 Subjective Patient-Reported Symptoms: Patient Findings Negatives: Signs/symptoms of thrombosis, Signs/symptoms of bleeding, Change in health, Change in alcohol use, Change in activity, Upcoming invasive procedure, Missed doses, Extra doses, Change in medications, Change in diet/appetite, Bruising Objective Current Warfarin Dose As of 06/12/2024 Warfarin maintenance plan: 2 mg (2 mg x 1) every Mon; 1 mg (2 mg x 0.5) all other days INR Result As of 06/12/2024 INR goal: 2.0-3.0 INR used for dosin.0 (06/12/2024) Assessment & Plan Warfarin Plan As of 06/12/2024 Full warfarin instructions: 2 mg every Mon; 1 mg all other days No change documented: Shania Novak [facility] Next INR check: 07/01/2024 Repeat PT/INR in 3 week(s) Weekly dose: not changed Additional Dosing Information: I spent a total of 10-19 minutes (exact time 10 mins) on the date of service in preparation, delivery, and documentation of the care provided to Tootie Almanza excluding any time spent in the performance of separately billed services or time spent by another provider/QHP. Shania Novak [facility] Clinical Pharmacist 06/12/2024, 11:04 AM documented in this encounter Plan of Treatment Upcoming Encounters Date Type Department Care Team (Late st Contact Info) Description 06/14/2024 9:00 AM EDT Cardiac Studies Cardiology, [facility] [address] [place] [address] [facility] [place] [address] [facility] [place] [address] 07/01/2024 1:30 PM EDT [facility] [place] [address] [facility] [address] [facility] [address] [place] [facility] [place] [address] 07/01/2024 1:40 PM EDT Anticoagulation Pharmacy, [place] [address] [place] [facility] [place] [address] [facility] [address] [place] [facility] [place] [address] 09/02/2024 10:00 AM EST Office Visit Cardiology, [facility] [address] [place] [address] [place] Momin PA-C [address] [place] [address] 09/23/2024 9:00 AM EST Office Visit Family Practice, [place] [address] [address] [facility] [phone] Pete Ambriz MD [address] [facility] [address] 05/14/2025 10:00 AM EDT Nurse Only Ancillary Department, [place] [address] [facility] [address] [place], Nurse [facility] Well[facility] [address] [facility] [address] Scheduled Procedures Name Priority Associated Diagnoses Date/Ti [...] Additional history exists CKD HGB USE SMARTSET 17273 01/28/202501/28, 01/29/2024, 12/27/2023, Additional history exists CKD PHOS USE SMARTSET 13220 01/28/20250 05/2024, 02/01/2023, 07/29/2022, Additional history exists Diabetic Foot Exam 04/23/2025 04/23/2024, 1 , 07/26/2021, Additional history exists Adult Wellness Visit 05/08/2025 05/08/2024, 05/05/20 23 Depression Screening 05/08/2025 05/08/2024 Albumin/Creatinine Ratio 05/24/2025 024, 07/25/2023, 02/01/2023, Additional history exists DXA Scan 06/04/2026 06/04/2024, 02/20, 03/01/2022, Additional history exists VITAMIN D LEVEL ONCE IN A LIFETIME-USE SMARTSET# 53852 Completed 08/28/2008, 04/07/2008, 12/04/2007 Pneumococcal Vaccine: 65+ [...] Comments INR FINGERSTICK, POINT OF CARE STAT 06/12/2024 11:11 AM EDT Persistent atrial fibrillation (HCC) Anticoagulation management encounter documented in this encounter Results * INR FINGERSTICK, POINT OF CARE (06/12/2024 11:11 AM EDT) Fingerstick INR 2.0 INR 12:27 PM EDT [facility] Blood 06/12/2024 11:1 1 AM EDT 06/12/2024 12:27 PM EDT Narrative [facility] - 06/12/2024 12:27 PM EDT Therapeutic ranges for non-operative patients: Prophylaxsis/treatment of DVT: (Range:2.0-3.0) Treatment of pulmonary embolism:(Range:2.0-3.0) Prevention of systemic embolism from: -tissue heart valves -acute myocardial infarction -valvular heart disease -atrial fibrillation (Range: 2.0-3.0) Mechanical prosthetic valves: (Range: 2.5-3.5) Shania Novak [facility] LAB POINT OF CARE TEST DOCKED DEVICE UNSOLICITED RESULTS [facility] [address] [place], [place] [id number] documented in this encounter Visit Diagnoses Diagnosis Anticoagulation management encounter- Primary Encounter for therapeutic drug monitoring Persistent atrial fibrillation (HCC) 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 documented in this encounter Advance Directives * No Code Status (Latest Code Status on File) Date Activated Date Inactivated Comments 01/11/2005 2:56 PM 01/11/2005 3:56 PM Care Teams Mail Truck Driver Relationship Specialty Start Date End Date Pete Ambriz MD [address] [place] [address] PCP - General Internal Medicine 05/08/24 documented as of this encounter"
--- OUTSIDE RECORDS SUMMARY | 2024-10-24 23:47 | External Medical Summary | Summary of Care ---
Author Name Unknown Organization [facility] Address [address] [facility] [place] [address] Phone [phone] Care Team Providers Care Facsimile Operator Name Role Phone Pete Ambriz MD Primary Care Provider [phone] Reason for Visit * Reason Comments Cardiac Rehab Encounter Details Date Type Department Care Team (Late st Contact Info) Description 05/31/2024 8:00 AM EDT Telemedicine Cardiac Rehab [facility], Virtual [address] [place] [address] [place] [address] [facility] [address] [place] [address] [place] [address] Aortocoronary bypass status* Allergies Active Allergy Reactions Criticality Noted Date Comments Cephalexin Unknown 09/12/2002 Lisinopril 12/07/2018 Cough Oxycodone 12/04/2003 nausea, stomach pains Tetanus Toxoid 01/28/2009 Local reaction, fever documented as of this encounter (statuses as of 06/04/2024) Medications Medication Sig Dispensed Refills Start Date [...] by mouth in the morning. 4 Active Pantoprazole Sodium 40 MG Oral Tablet Delayed Release (Protonix) Take 1 Tablet by mouth in the morning. 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 TAKE 1/2 [...] as of this encounter (statuses as of 06/04/2024) Active Problems Problem Noted Date Diagnosed Date [...] as of this encounter (statuses as of 06/04/2024) Resolved Problems Problem Noted Date Diagnosed Date [...] Nummular eczema 09/06/2013 07/26/2021 [employer] Other*[id number] 02/03/2012 11/29/2016 Overview: Study Titile: [employer] Markers for Patients with Cardiovascular Disease Project # [id number] PI: Merary Rivera MD Please call [phone] with study related questions Irritable bowel syndrome [...] as of this encounter (statuses as of 06/04/2024) Immunizations Name Administration Dates Next Due COVID-19 [...] the money to buy more. Never true 05/05/20 23 Within the past 12 months, t he food you bought just didn't last and you didn't have money to get more. Never true 05/05/2023 Sex and Gender Information Value Date Recorded Sex Assigned at Female 12/02/2019 2:43 PM EST Gender Identity Female 12/02/2019 2:43 PM EST Sexual Orientation Straight 12/02/2019 2: 43 PM EST Job Start Date Occupation Industry Not on file Not on file Not on file documented as of this encounter Progress Notes * Hali De La Torre [facility] - 06/04/2024 10:24 PM EDT Session Encounter: Patient is participating in [employer]s Intensive Cardiac Rehab Program in partnership with [employer] is a specialized [employer] that specializes in providing virtual cardiac rehab services. Session #7 completed. Please refer to scan document for session details. Session type: Exercise Individual Session duration: 35 minutes documented in this encounter Plan of Treatment Upcoming Encounters Date Type Department Care Team (Late st Contact Info) Description 06/12/2024 11:10 AM EDT Anticoagulation Pharmacy, [place] [address] [address] [facility], [place] [address] [facility] [address] [facility], [place] [address] 06/12/2024 11:20 AM EDT Office Visit Pharmacy, [place] [address] [address] [facility] [address] [facility] [address] [facility] [address] 06/14/2024 9:00 AM EDT Cardiac Studies Cardiology, [facility] [address] [facility] [place] [address] [facility] [place] [address] 09/02/2024 10:00 AM EST Office Visit Cardiology, [facility] [place] [address] [place] Momin, PA-C [address] [place] [address] 09/23/2024 9:00 AM EST Office Visit Family Practice, [place] [address] [address] [facility] [phone] Pete Ambriz MD [address] [facility] [address] 05/14/2025 10:00 AM EDT Nurse Only Ancillary Department, [place] [address] [place] [address] [place], Nurse Annual Wellness [address] [facility] [place] [address] Scheduled Procedures Name Priority Associated Diagnoses Date/Ti me COLONOSCOPY FLEXIBLE PROXIMA L DIAGNOSTIC Recall History of colonic polyps Health Maintenance Due Date Last Done Comments Colonoscopy 02/07/2022 02/07/2019, 01/21, 03/18/2010 *BISPHONATE OR OTHER ACCEPTABLE MEDICATION NEEDED FOR OSTEOPOROSIS (REFER TO SMARTSET #1146) 12/12/2022 COVID-19 Vaccine ( season) 2023 06/22/2021, 05/08/2021 DXA Scan 03/01/2024 03/01/2022, 02/20, 12/10/2018, Additional history exists Influenza Vaccine (FLU shot) (#1) 2024 08/30/2023, 09/23/2022, 10/01/2019, Additional history exists GFR 11/24/2024 05/24/2024, 03/0 03/2024, 07/25/2023, Additional history exists HbA1c 11/24/2024 05/24/2024, 04/0 05/2024, 07/25/2023, Additional history exists Diabetic Eye Exam 12/01/2024 12/01/2023, , 11/15/2022, Additional history exists B-12 01/28/2025 01/29/2024, 01/21, 07/29/2022, Additional history exists CKD HGB USE SMARTSET 64745 01/28/202501/28, 01/29/2024, 12/27/2023, Additional history exists CKD PHOS USE SMARTSET 15537 01/28/2025 04/0 05/2024, 02/01/2023, 07/29/2022, Additional history exists Diabetic Foot Exam 04/23/2025 04/23/2024, 1 , 07/26/2021, Additional history exists Adult Wellness Visit 05/08/2025 05/08/2024, 05/05/20 23 Depression Screening 05/08/2025 05/08/2024 Albumin/Creatinine Ratio 05/24/2025 024, 07/25/2023, 02/01/2023, Additional history exists VITAMIN D LEVEL ONCE IN A LIFETIME-USE SMARTSET# 35818 Completed 08/28/2008, 04/07/2008, 12/04/2007 Pneumococcal Vaccine: 65+ [...] 2:56 PM 01/11/2005 3:56 PM Care Teams Facsimile Operator Relationship Specialty Start Date End Date Pete Ambriz MD [address] [place] [facility] [place] [address] PCP - General Internal Medicine 05/08/24 documented as of this encounter
--- OUTSIDE RECORDS SUMMARY | 2024-10-24 23:47 | External Medical Summary | Summary of Care ---
Author Name Unknown Organization [facility] Address [address] [place] [address] Phone [phone] Care Team Providers Care Insurance Sales Agent Name Role Phone Pete Ambriz MD Primary Care Provider [phone] Encounter Details Date Type Department Care Team (Late st Contact Info) Description 06/11/2024 Telephone [facility] [address] [place] [address] Pete Ambriz MD [address] [place] [address] Allergies Active Allergy Reactions Criticality Noted Date Comments Cephalexin Unknown 09/12/2002 Lisinopril 12/07/2018 Cough Oxycodone 12/04/2003 nausea, stomach pains Tetanus Toxoid 01/28/2009 Local reaction, fever documented as of this encounter (statuses as of 06/11/2024) Medications Medication Sig Dispensed Refills Start Date [...] management encounter,Aortocoro nary bypass status,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),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 TAKE [...] as of this encounter (statuses as of 06/11/2024) Active Problems Problem Noted Date Diagnosed Date [...] macular edema, left eye 12/28/2020 Atherosclerosis of [place] co ronary artery of [place] heart without angina pectoris 12/19/2019 Persistent atrial [...] as of this encounter (statuses as of 06/11/2024) Resolved Problems Problem Noted Date Diagnosed Date [...] Nummular eczema 09/06/2013 07/26/2021 [employer] Other*[id number] 02/03/2012 11/29/2016 Overview: Study Titile: [employer] Markers for Patients with Cardiovascular Disease Project # [id number] PI: Merary Rivera MD Please call [phone] with study related questions Irritable bowel syndrome 05/14/201001/2021 Type 2 diabetes mellitus wit h hemoglobin A1c goal of less than 7.0% 08/06/2009 01/08/2010 Overview: Modified per Diabetes protocol #14. ICD-10 update of inactive term ADVANCE DIRECTIVE INFORMATION 09/27/2007 07/26/2021 Overview: Yes-copy on file Carpal tunnel syndrome 04/14/200404/01 Atherosclerosis of [place] co ronary artery of [place] heart without angina pectoris 04/14/2004 Overview: Duplicate. [...] as of this encounter (statuses as of 06/11/2024) Immunizations Name Administration Dates Next Due COVID-19 [...] Description 06/12/2024 11:10 AM EDT Anticoagulation Pharmacy, [place] [address] [place] [address] [facility] [place] [address] 06/12/2024 11:20 AM EDT Office Visit Pharmacy, [place] [address] [place] [address] [facility] [place] [address] 06/14/2024 9:00 AM EDT Cardiac Studies Cardiology, [facility] [address] [facility] [place] [address] [facility] 132 [facility] [place] [address] 09/02/2024 10:00 AM EST Office Visit Cardiology, [facility] [address] [place] [address] [place] Momin PA-C [address] [place] [address] 09/23/2024 9:00 AM EST Office Visit [facility], [place] [address] [facility] [phone] Pete [facility]riz [facility] [address] [facility] [address] 05/14/2025 10:00 AM EDT Nurse Only Ancillary Department, [place] [address] [facility] [id number] [place], Nurse [facility] Well[facility] [address] [facility] [phone] Scheduled Procedures Name Priority Associated Diagnoses Date/Ti [...] 05/24/2024, 040 05/2024, 07/25/2023, Additional history exists Diabetic Eye Exam 12/01/2024 12/01/2023, , 11/15/2022, Additional history exists B-12 01/28/2025 01/29/2024, 01/21, 07/29/2022, Additional history exists CKD HGB USE SMARTSET 82607 01/28/202501/28, 01/29/2024, 12/27/2023, Additional history exists CKD PHOS USE SMARTSET 80208 01/28/2025 04/0 05/2024, 02/01/2023, 07/29/2022, Additional history exists Diabetic Foot Exam 04/23/2025 04/23/2024, 1 , 07/26/2021, Additional history exists Adult Wellness Visit 05/08/2025 05/08/2024, 05/05/20 23 Depression Screening 05/08/2025 05/08/2024 Albumin/Creatinine Ratio 05/24/2025 024, 07/25/2023, 02/01/2023, Additional history exists DXA Scan 06/04/2026 06/04/2024, 02/20, 03/01/2022, Additional history exists VITAMIN D LEVEL ONCE IN A LIFETIME-USE SMARTSET# 78898 Completed 08/28/2008, 04/07/2008, 12/04/2007 Pneumococcal Vaccine: 65+ [...] 2:56 PM 01/11/2005 3:56 PM Care Teams Insurance Sales Agent Relationship Specialty Start Date End Date Pete Ambriz MD [address] [place] [address] PCP - General Internal Medicine 05/08/24 documented as of this encounter
--- OUTSIDE RECORDS SUMMARY | 2024-10-24 23:47 | External Medical Summary | Summary of Care ---
Author Name Unknown Organization [facility] Address [address] [place] [address] Phone [phone] Care Team Providers Care Senior Clinical Research Associate Name Role Phone Pete Ambriz MD Primary Care Provider [phone] Encounter Details Date Type Department Care Team (Late st Contact Info) Description 06/11/2024 Telephone [facility] [address] [place] [address] Pete Ambriz MD [address] [place] [address] Allergies Active Allergy Reactions Criticality [...] macular edema, left eye 12/28/2020 Atherosclerosis of [place] ronary artery of [place] heart without angina pectoris 12/19/2019 Persistent atrial [...] Nummular eczema 09/06/2013 07/26/2021 [employer] Other*[id number] 02/03/2012 11/29/2016 Overview: Study Titile: [employer] Markers for Patients with Cardiovascular Disease Project # [id number] PI: Merary Rivera MD Please call [phone] with study related questions Irritable bowel syndrome 05/14/201001/2021 Type 2 diabetes mellitus wit h hemoglobin A1c goal of less than 7.0% 08/06/2009 01/08/2010 Overview: Modified per Diabetes protocol #14. ICD-10 update of inactive term ADVANCE DIRECTIVE INFORMATION 09/27/2007 07/26/2021 Overview: Yes-copy on file Carpal tunnel syndrome 04/14/200404/01 Atherosclerosis of [place] ronary artery of [place] heart without angina pectoris 04/14/2004 Overview: Duplicate. [...] Miscellaneous Notes * Telephone Encounter - Laverne Delgado, BERNARD - 06/11/2024 2:22 PM EDT Patient states [...] Description 06/12/2024 11:10 AM EDT Anticoagulation Pharmacy, [place] [address] [place] [address] [facility] [place] [facility] [place] [address] 06/12/2024 11:20 AM EDT Office Visit Pharmacy, [place] [address] [place] [address] [facility] [address] [place] [facility] [address] 06/14/2024 9:00 AM EDT Cardiac Studies Cardiology, [facility] [address] [facility] [place] [address] [facility] [place] [address] 09/02/2024 10:00 AM EST Office Visit Cardiology, [facility] [address] [place] [address] [place] Momin PA-C [address] [place] [address] 09/23/2024 9:00 AM EST Office Visit Family [place] [address] [address] [facility] [address] Pete Ambriz MD [address] [facility] [phone] 05/14/2025 10:00 AM EDT Nurse Only Ancillary Department, [place] [address] [facility] [address] [place], Nurse Annual Wellness [address] [facility] [place] [id number] Scheduled Procedures Name Priority Associated Diagnoses Date/Ti [...] Additional history exists CKD HGB USE SMARTSET 42342 01/28/202501/28, 01/29/2024, 12/27/2023, Additional history exists CKD PHOS USE SMARTSET 71453 01/28/2025 04/0 05/2024, 02/01/2023, 07/29/2022, Additional history exists Diabetic Foot Exam 04/23/2025 04/23/2024, 1 , 07/26/2021, Additional history exists Adult Wellness Visit 05/08/2025 05/08/2024, 05/05/20 23 Depression Screening 05/08/2025 05/08/2024 Albumin/Creatinine Ratio 05/24/2025 024, 07/25/2023, 02/01/2023, Additional history exists DXA Scan 06/04/2026 06/04/2024, 02/20, 03/01/2022, Additional history exists VITAMIN D LEVEL ONCE IN A LIFETIME-USE SMARTSET# 43893 Completed 08/28/2008, 04/07/2008, 12/04/2007 Pneumococcal Vaccine: 65+ [...] 2:56 PM 01/11/2005 3:56 PM Care Teams Senior Clinical Research Associate Relationship Specialty Start Date End Date Pete Ambriz MD [address] [place] [address] PCP - General Internal Medicine 05/08/24 documented as of this encounter
--- OUTSIDE RECORDS SUMMARY | 2024-10-24 23:47 | External Medical Summary | Summary of Care ---
Author Name Unknown Organization [facility] Address [address] [place] [address] Phone [phone] Care Team Providers Care Fermenter Champagne Name Role Phone Pete Ambriz MD Primary Care Provider [phone] Encounter Details Date Type Department Care Team (Latest Contact Info) Description 06/04/2024 2:31 PM EDT - 06/04/2024 11:59 PM EDT Hospital Encounter Radiology [facility], [facility] [address] [place] [address] Arrived Discharge Disposition: Home - Self Care Allergies Active Allergy Reactions Criticality Noted Date Comments Cephalexin Unknown 09/12/2002 Lisinopril 12/07/2018 Cough Oxycodone 12/04/2003 nausea, stomach pains Tetanus Toxoid 01/28/2009 Local reaction, fever documented as of this encounter (statuses as of 06/05/2024) Medications Medication Sig Dispensed Refills Start Date [...] on management encounter,Aortocoro nary bypass status,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),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 TAKE 1/2 [...] as of this encounter (statuses as of 06/05/2024) Active Problems Problem Noted Date Diagnosed Date [...] macular edema, left eye 12/28/2020 Atherosclerosis of [place] co ronary artery of [place] heart without angina pectoris 12/19/2019 Persistent atrial [...] as of this encounter (statuses as of 06/05/2024) Resolved Problems Problem Noted Date Diagnosed Date [...] Nummular eczema 09/06/2013 07/26/2021 [employer] Other*[id number] 02/03/2012 11/29/2016 Overview: Study Titile: [employer] Markers for Patients with Cardiovascular Disease Project # [id number] PI: Merray Rivera MD Please call [phone] with study related questions Irritable bowel syndrome 05/14/201001/2021 Type 2 diabetes mellitus wit h hemoglobin A1c goal of less than 7.0% 08/06/2009 01/08/2010 Overview: Modified per Diabetes protocol #14. ICD-10 update of inactive term ADVANCE DIRECTIVE INFORMATION 09/27/2007 07/26/2021 Overview: Yes-copy on file Carpal tunnel syndrome 04/14/200404/01 Atherosclerosis of [place] co ronary artery of [place] heart without angina pectoris 04/14/2004 Overview: Duplicate. [...] as of this encounter (statuses as of 06/05/2024) Immunizations Name Administration Dates Next Due COVID-19 [...] Description 06/12/2024 11:10 AM EDT [facility]tico[facility], [place] [address] [facility] [address] [place], [facility] [address] [place] [facility] [place] [address] 06/12/2024 11:20 AM EDT Office Visit Pharmacy, [place] [address] [place] [facility] [place] [address] [facility] [address] [place] [facility] [place] [address] 06/14/2024 9:00 AM EDT Cardiac Studies Cardiology, [facility] [address] [place] [address] [facility] [address] [facility] [place] [address] 09/02/2024 10:00 AM EST Office Visit Cardiology, [facility] [address] [place] [address] [place] Momin PA-C [address] [facility] [place] [address] 09/23/2024 9:00 AM EST Office Visit Family Practice, [place] [address] [facility] [phone] Pete Ambriz MD [address] [place] [facility] [place] [address] 05/14/2025 10:00 AM EDT Nurse Only Ancillary Department, [place] [address] [facility] [address] [place], Nurse [facility] [address] [place] [facility] [place] [address] Pending Results Name Type Priority Associated Diagnoses Date /Time DEXA SCAN/BONE MINERAL AXIAL Medical Imaging Routine Age-related osteoporosis without current pathological fracture 06/04/2024 3:04 PM EDT Scheduled Orders Name Type Priority Associated Diagnoses Orde r Schedule DEXA SCAN/BONE MINERAL AXIAL Medical Imaging Routine Age-related osteoporosis without current pathological fracture 1 Occurrences starting 06/04/2024 until 06/04/2024 Scheduled Procedures Name Priority Associated Diagnoses Date/Ti [...] Additional history exists CKD HGB USE SMARTSET 30036 01/28/202501/28, 01/29/2024, 12/27/2023, Additional history exists CKD PHOS USE SMARTSET 42335 01/28/2025 04/0 05/2024, 02/01/2023, 07/29/2022, Additional history exists Diabetic Foot Exam 04/23/2025 04/23/2024, 1 , 07/26/2021, Additional history exists Adult Wellness Visit 05/08/2025 05/08/2024, 05/05/20 23 Depression Screening 05/08/2025 05/08/2024 Albumin/Creatinine Ratio 05/24/2025 08/2 024, 07/25/2023, 02/01/2023, Additional history exists VITAMIN D LEVEL ONCE IN A LIFETIME-USE SMARTSET# 19519 Completed 08/28/2008, 04/07/2008, 12/04/2007 Pneumococcal Vaccine: 65+ [...] osteoporosis without current pathological fracture Senile osteoporosis documented in this encounter Advance Directives * No Code Status (Latest Code Status on File) Date Activated Date Inactivated Comments 01/11/2005 2:56 PM 01/11/2005 3:56 PM Care Teams Fermenter Champagne Relationship Specialty Start Date End Date Pete Ambriz MD [address] [place] [address] PCP - General Internal Medicine 05/08/24 documented as of this encounter
--- OUTSIDE RECORDS SUMMARY | 2024-10-24 23:47 | External Medical Summary | Summary of Care ---
Author Name Unknown Organization [facility] Address [address] [place] [address] Phone [phone] Care Team Providers Care Lumber Piler Operator Name Role Phone Pete Ambriz MD Primary Care Provider [phone] Encounter Details Date Type Department Care Team (Late st Contact Info) Description 06/11/2024 Telephone [facility] [address] [place] [address] Pete Ambirz MD [address] [place] [address] Allergies Active Allergy Reactions Criticality [...] Nummular eczema 09/06/2013 07/26/2021 [employer] Other*[id number] 02/03/2012 11/29/2016 Overview: Study Titile: [employer] Markers for Patients with Cardiovascular Disease Project # [id number] PI: Merary Rivera MD Please call [phone] with study related questions Irritable bowel syndrome 05/14/201001/2021 Type 2 diabetes mellitus wit h hemoglobin A1c goal of less than 7.0% 08/06/2009 01/08/2010 Overview: Modified per Diabetes protocol #14. ICD-10 update of inactive term ADVANCE DIRECTIVE INFORMATION 09/27/2007 07/26/2021 Overview: Yes-copy on file Carpal tunnel syndrome 04/14/200404/01 Atherosclerosis of [place] co ronary artery of [place] heart without angina pectoris 04/14/2004 Overview: [...] encounter Miscellaneous Notes * Telephone Encounter - Tonya Pace, BERNARD - 06/11/2024 2:40 PM EDT Pt calling [...] Description 06/12/2024 11:10 AM EDT Anticoagulation Pharmacy, [place] [address] [facility] [address] [place], [facility] [address] [facility] [address] 06/12/2024 11:20 AM EDT Office Visit Pharmacy, [place] [address] [facility] [address] [place], [facility] [address] [facility] [address] 06/14/2024 9:00 AM EDT Cardiac Studies Cardiology, [facility] [address] [facility] [place] [address] [facility] [address] [place] [address] 09/02/2024 10:00 AM EST Office Visit Cardiology, [facility] [address] [facility] [place] [address] [place] [facility]omin [facility]C [address] [facility] [place] [address] 09/23/2024 9:00 AM EST Office Visit Family [facility], [place] [address] [place] [phone] Pete Ambriz MD [address] [place] [address] 05/14/2025 10:00 AM EDT Nurse Only Ancillary Department, [place] [address] [place] [address] [place], Nurse [facility] [address] [place] [address] Scheduled Procedures Name Priority Associated Diagnoses Date/Ti [...] Additional history exists CKD HGB USE SMARTSET 70153 01/28/202501/28, 01/29/2024, 12/27/2023, Additional history exists CKD PHOS USE SMARTSET 39030 01/28/2025 040 05/2024, 02/01/2023, 07/29/2022, Additional history exists Diabetic Foot Exam 04/23/2025 04/23/2024, 1 , 07/26/2021, Additional history exists Adult Wellness Visit 05/08/2025 05/08/2024, 05/05/20 23 Depression Screening 05/08/2025 05/08/2024 Albumin/Creatinine Ratio 05/24/2025 024, 07/25/2023, 02/01/2023, Additional history exists DXA Scan 06/04/2026 06/04/2024, 02/20, 03/01/2022, Additional history exists VITAMIN D LEVEL ONCE IN A LIFETIME-USE SMARTSET# 42111 Completed 08/28/2008, 04/07/2008, 12/04/2007 Pneumococcal Vaccine: 65+ [...] 2:56 PM 01/11/2005 3:56 PM Care Teams Lumber Piler Operator Relationship Specialty Start Date End Date Pete Ambriz MD [address] [place] [id number] PCP - General Internal Medicine 05/08/24 documented as of this encounter
--- OUTSIDE RECORDS SUMMARY | 2024-10-24 23:47 | External Medical Summary | Summary of Care ---
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 TAKE 1/2 [...] macular edema, left eye 12/28/2020 Atherosclerosis of [place] co ronary artery of [place] heart without angina pectoris 12/19/2019 Persistent atrial [...] Nummular eczema 09/06/2013 07/26/2021 [employer] Other*[id number] 02/03/2012 11/29/2016 Overview: Study Titile: [employer] Markers for Patients with Cardiovascular Disease Project # [id number] PI: Merary Rivera MD Please call [phone] with study related questions Irritable bowel syndrome 05/14/201001/2021 Type 2 diabetes mellitus wit h hemoglobin A1c goal of less than 7.0% 08/06/2009 01/08/2010 Overview: Modified per Diabetes protocol #14. ICD-10 update of inactive term ADVANCE DIRECTIVE INFORMATION 09/27/2007 07/26/2021 Overview: Yes-copy on file Carpal tunnel syndrome 04/14/200404/01 Atherosclerosis of [place] co ronary artery of [place] heart without angina pectoris 04/14/2004 Overview: Duplicate. [...] Description 06/12/2024 11:10 AM EDT Anticoagulation Pharmacy, [place] [address] [facility] [address] [place], [facility] [address] [facility] [address] 06/12/2024 11:20 AM EDT Office Visit Pharmacy, [place] [address] [facility] [address] [place], [facility] [address] [facility] [address] 06/14/2024 9:00 AM EDT Cardiac Studies Cardiology, [facility] [address] [facility] [place] [address] [facility] [address] [facility] [place] [address] 09/02/2024 10:00 AM EST Office Visit Cardiology, [facility] [address] [facility] [place] [address] [place] Momin PA-C [address] [place] [address] 09/23/2024 9:00 AM EST Office Visit Family [facility], [place] [address] [place] [phone] Pete mAbriz MD [address] [place] [address] 05/14/2025 10:00 AM EDT Nurse Only Ancillary Department, [place] [address] [place] [address] [place], Nurse [facility] [address] [place] [address] Scheduled Procedures Name Priority Associated Diagnoses Date/Ti [...] Additional history exists CKD HGB USE SMARTSET 14441 01/28/202501/28, 01/29/2024, 12/27/2023, Additional history exists CKD PHOS USE SMARTSET 80638 01/28/2025 040 05/2024, 02/01/2023, 07/29/2022, Additional history exists Diabetic Foot Exam 04/23/2025 04/23/2024, 1 , 07/26/2021, Additional history exists Adult Wellness Visit 05/08/2025 05/08/2024, 05/05/20 23 Depression Screening 05/08/2025 05/08/2024 Albumin/Creatinine Ratio 05/24/2025 024, 07/25/2023, 02/01/2023, Additional history exists DXA Scan 06/04/2026 06/04/2024, 02/20, 03/01/2022, Additional history exists VITAMIN D LEVEL ONCE IN A LIFETIME-USE SMARTSET# 95276 Completed 08/28/2008, 04/07/2008, 12/04/2007 Pneumococcal Vaccine: 65+ [...] 2:56 PM 01/11/2005 3:56 PM Care Teams Hosiery Looper Relationship Specialty Start Date End Date Pete Ambriz MD [address] [place] [id number] PCP - General Internal Medicine 05/08/24 documented as of this encounter
--- OUTSIDE RECORDS SUMMARY | 2024-10-24 23:47 | External Medical Summary | Summary of Care ---
Author Name Unknown Organization [facility] Address [address] [place] [address] Phone [phone] Care Team Providers Care Hogshead Cooper Name Role Phone Pete Ambriz MD Primary Care Provider [phone] Encounter Details Date Type Department Care Team (Late st Contact Info) Description 06/11/2024 Telephone [facility] [address] [place] [address] Pete Ambriz MD [address] [place] [address] Allergies Active Allergy Reactions Criticality [...] Nummular eczema 09/06/2013 07/26/2021 [employer] Other*[id number] 02/03/2012 11/29/2016 Overview: Study Titile: [employer] Markers for Patients with Cardiovascular Disease Project # [id number] PI: Merary Rivera MD Please call [phone] with study related questions Irritable bowel syndrome [...] Description 06/12/2024 11:10 AM EDT Anticoagulation Pharmacy, [place] [address] [place] [address] [facility] [place] [address] 06/12/2024 11:20 AM EDT Office Visit Pharmacy, [place] [address] [facility] [place] [address] [facility] [address] [facility] [place] [address] 06/14/2024 9:00 AM EDT Cardiac Studies Cardiology, [facility] [address] [facility] [place] [address] [facility] [place] [address] 09/02/2024 10:00 AM EST Office Visit Cardiology, [facility] [address] [place] [address] Dayton Momin PA-C [address] [place] [address] 09/23/2024 9:00 AM EST Office Visit Family [place] [address] [facility] [address] Pete Ambriz MD [address] [facility] [id number] 05/14/2025 10:00 AM EDT Nurse Only Ancillary Department, [place] [address] [facility] [address] [place], Nurse Annual [facility] [address] [facility] [place] [phone] Scheduled Procedures Name Priority Associated Diagnoses Date/Ti [...] Additional history exists CKD HGB USE SMARTSET 55569 01/28/202501/28, 01/29/2024, 12/27/2023, Additional history exists CKD PHOS USE SMARTSET 88641 01/28/2025 04/0 05/2024, 02/01/2023, 07/29/2022, Additional history exists Diabetic Foot Exam 04/23/2025 04/23/2024, 1 , 07/26/2021, Additional history exists Adult Wellness Visit 05/08/2025 05/08/2024, 05/05/20 23 Depression Screening 05/08/2025 05/08/2024 Albumin/Creatinine Ratio 05/24/2025 024, 07/25/2023, 02/01/2023, Additional history exists DXA Scan 06/04/2026 06/04/2024, 02/20, 03/01/2022, Additional history exists VITAMIN D LEVEL ONCE IN A LIFETIME-USE SMARTSET# 19786 Completed 08/28/2008, 04/07/2008, 12/04/2007 Pneumococcal Vaccine: 65+ [...] 2:56 PM 01/11/2005 3:56 PM Care Teams Hogshead Cooper Relationship Specialty Start Date End Date Pete Ambriz MD [address] [place] [address] PCP - General Internal Medicine 05/08/24 documented as of this encounter
--- OUTSIDE RECORDS SUMMARY | 2024-10-24 23:47 | External Medical Summary | Summary of Care ---
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 TAKE 1/2 [...] macular edema, left eye 12/28/2020 Atherosclerosis of [place] co ronary artery of [place] heart without angina pectoris 12/19/2019 Persistent [...] Nummular eczema 09/06/2013 07/26/2021 [employer] Other*[id number] 02/03/2012 11/29/2016 Overview: Study Titile: [employer] Markers for Patients with Cardiovascular Disease Project # [id number] PI: Merary Rivera MD Please call [phone] with study related questions Irritable bowel syndrome 05/14/201001/2021 Type 2 diabetes mellitus wit h hemoglobin A1c goal of less than 7.0% 08/06/2009 01/08/2010 Overview: Modified per Diabetes protocol #14. ICD-10 update of inactive term ADVANCE DIRECTIVE INFORMATION 09/27/2007 07/26/2021 Overview: Yes-copy on file Carpal tunnel syndrome 04/14/200404/01 Atherosclerosis of [place] co ronary artery of [place] heart without angina pectoris 04/14/2004 Overview: [...] Description 06/12/2024 11:10 AM EDT Anticoagulation Pharmacy, [place] [address] [facility] [address] [place] [address] [facility] [address] 06/12/2024 11:20 AM EDT Office Visit Pharmacy, [place] [address] [facility] [address] [place], [facility] [address] [facility] [address] 06/14/2024 9:00 AM EDT Cardiac Studies Cardiology, [facility] [address] [facility] [place] [address] [facility] [address] [facility] [place] [address] 09/02/2024 10:00 AM EST Office Visit Cardiology, [facility] [address] [facility] [place] [address] [place] Momin [facility]-C [address] [facility] [place] [address] 09/23/2024 9:00 AM EST Office Visit Family [facility], [place] [address] [place] [address] Pete Ambriz MD [address] [place] [address] 05/14/2025 10:00 AM EDT Nurse Only Ancillary Department, [place] [address] [place] [address] [place], Nurse [facility] [address] [place] [address] Scheduled Procedures Name Priority Associated Diagnoses Date/Ti [...] Additional history exists CKD HGB USE SMARTSET 93064 01/28/202501/28, 01/29/2024, 12/27/2023, Additional history exists CKD PHOS USE SMARTSET 91224 01/28/2025 040 05/2024, 02/01/2023, 07/29/2022, Additional history exists Diabetic Foot Exam 04/23/2025 04/23/2024, 1 , 07/26/2021, Additional history exists Adult Wellness Visit 05/08/2025 05/08/2024, 05/05/20 23 Depression Screening 05/08/2025 05/08/2024 Albumin/Creatinine Ratio 05/24/2025 024, 07/25/2023, 02/01/2023, Additional history exists DXA Scan 06/04/2026 06/04/2024, 02/20, 03/01/2022, Additional history exists VITAMIN D LEVEL ONCE IN A LIFETIME-USE SMARTSET# 72955 Completed 08/28/2008, 04/07/2008, 12/04/2007 Pneumococcal Vaccine: 65+ [...] 2:56 PM 01/11/2005 3:56 PM Care Teams Sock Ironer Relationship Specialty Start Date End Date Pete Ambriz MD [address] [place] [address] PCP - General Internal Medicine 05/08/24 documented as of this encounter
--- OUTSIDE RECORDS SUMMARY | 2024-10-24 23:47 | External Medical Summary | Summary of Care ---
Author Name Unknown Organization [facility] Address [address] [place] [address] Phone [phone] Care Team Providers Care Automobile Service Station Manager Name Role Phone Pete Ambriz MD Primary Care Provider Reason for Visit * Reason Comments Medication Discussion Encounter Details Date Type Department Care Team (Late st Contact Info) Description 06/12/2024 11:40 AM EDT Pharmacy Pharmacy, [place] [address] [place] [address] [facility] [address] [place] [address] Encounter for medication review* Allergies Active Allergy Reactions Criticality Noted Date [...] on management encounter,Aortocoro nary bypass status,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),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 TAKE 1/2 [...] macular edema, left eye 12/28/2020 Atherosclerosis of [place] co ronary artery of [place] heart without angina pectoris 12/19/2019 Persistent atrial [...] Nummular eczema 09/06/2013 07/26/2021 [employer] Other*[id number] 02/03/2012 11/29/2016 Overview: Study Titile: Genomics Markers for Patients with Cardiovascular Disease Project # [id number] PI: Merary Rivera MD Please call [phone] with study related questions Irritable bowel syndrome 05/14/201001/2021 Type 2 diabetes mellitus wit h hemoglobin A1c goal of less than 7.0% 08/06/2009 01/08/2010 Overview: Modified per Diabetes protocol #14. ICD-10 update of inactive term ADVANCE DIRECTIVE INFORMATION 09/27/2007 07/26/2021 Overview: Yes-copy on file Carpal tunnel syndrome 04/14/200404/01 Atherosclerosis of [place] co ronary artery of [place] heart without angina pectoris 04/14/2004 Overview: Duplicate. [...] mRNA, LNP-s, No Pre serve, 2-Dose Series ([employer]) 06/22/2021,05/08/2021 Pneumococcal Conjugate Vacc, 13 Valent (Prevnar) [...] this encounter Progress Notes * Shania Novak RP - 06/12/2024 12:06 PM EDT CMR completed today in Medication Management encounter (06/12/24). Shania Novak, PharmD, BCACP Clinical Pharmacist Medication Therapy Disease Management 06/12/2024, 12:06 PM documented in this encounter Plan of Treatment Upcoming Encounters Date Type Department Care Team (Late st Contact Info) Description 06/14/2024 9:00 AM EDT Cardiac Studies Cardiology, [facility] [address] [facility] [place] [address] [facility] 132 [facility] [place] [address] 07/01/2024 1:30 PM EDT Office Visit Pharmacy, [place] [address] [facility] [place] [address] [facility] [place] [facility] [place] [address] 07/01/2024 1:40 PM EDT Anticoagulation Pharmacy, [place] [address] [facility] [place] [place] [address] [place], [facility] [address] [place] [facility] [place] [address] 09/02/2024 10:00 AM EST Office Visit Cardiology, [facility] [address] [facility] [place] [address] [place] Momin PA-C [address] [facility] [place] [address] 09/23/2024 9:00 AM EST Office Visit [facility], [place] [address] [facility] [address] Pete Ambriz MD [address] [facility] [address] 05/14/2025 10:00 AM EDT Nurse Only Ancillary Department, [place] [address] [facility] [address] [place], [facility] [address] [facility] [address] Scheduled Procedures Name Priority Associated Diagnoses Date/Ti [...] Additional history exists CKD HGB USE SMARTSET 88411 01/28/202501/28, 01/29/2024, 12/27/2023, Additional history exists CKD PHOS USE SMARTSET 61658 01/28/2025 04/0 05/2024, 02/01/2023, 07/29/2022, Additional history exists Diabetic Foot Exam 04/23/2025 04/23/2024, 1 , 07/26/2021, Additional history exists Adult Wellness Visit 05/08/2025 05/08/2024, 05/05/20 23 Depression Screening 05/08/2025 05/08/2024 Albumin/Creatinine Ratio 05/24/2025 08 024, 07/25/2023, 02/01/2023, Additional history exists DXA Scan 06/04/2026 06/04/2024, 02/20, 03/01/2022, Additional history exists VITAMIN D LEVEL ONCE IN A LIFETIME-USE SMARTSET# 91440 Completed 08/28/2008, 04/07/2008, 12/04/2007 Pneumococcal Vaccine: 65+ [...] as of this encounter Visit Diagnoses Diagnosis Encounter for medication review- Primary Encounter for long-term (current) use of other medications documented in this encounter Advance Directives * No Code Status (Latest Code Status on File) Date Activated Date Inactivated Comments 01/11/2005 2:56 PM 01/11/2005 3:56 PM Care Teams Automobile Service Station Manager Relationship Specialty Start Date End Date Pete Ambriz MD [address] [place] [address] PCP - General Internal Medicine 05/08/24 documented as of this encounter
--- OUTSIDE RECORDS SUMMARY | 2024-10-24 23:47 | External Medical Summary ---
Author Name Unknown Address Unknown Organization : Laboratory Report Ordering Provider Test Date Status [place] 06/12/2024 11:11:12 Final Therapeutic ranges for non-o perative patients:
Prophylaxsis/treatment of DVT: (Range:2.0-3.0)
Treatment of pulmonary embolism:(Range:2.0-3.0)
Prevention of systemic embolism from:
-tissue heart valves
-acute myocardial infarction
-valvular heart disease
-atrial fibrillation
(Range: 2.0-3.0)
Mechanical prosthetic valves: (Range: 2.5-3.5) Observation Date Value Abnormality Reference (Units ) Status INR in Capillary blood by Coagulation assay 06/12/2024 11:11:12 2.0 (INR) Final Performing Location
--- OUTSIDE RECORDS SUMMARY | 2024-10-24 23:47 | External Medical Summary | Summary of Care ---
Author Name Unknown Organization [facility] Address [address] [facility] [address] Phone [phone] Care Team Providers Care Machine Maintenance Mechanic Name Role Phone Pete Ambriz MD Primary Care Provider [phone] Reason for Visit * Reason Comments Dosage Adjustment In Person (Anticoag Cl inic) Diabetes Follow-Up Encounter Details Date Type Department Care Team (Late st Contact Info) Description 06/12/2024 11:20 AM EDT Office Visit Pharmacy, [place] [address] [place] [address] [facility] [address] [place] [address] Type 2 diabetes mellitus with hemoglobin A1c goal of 7.0%-8.0% ([facility])* Allergies Active Allergy Reactions Criticality Noted Date [...] :Heart failure, diastolic, with acute decompensation ([facility]) TAKE TWO TABLETS BY MOUTH [...] ion management encounter,Aortocor onary bypass status,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),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 Active Pantoprazole Sodium 40 MG Oral Tablet [...] macular edema, left eye 12/28/2020 Atherosclerosis of [place] co ronary artery of [place] heart without angina pectoris 12/19/2019 Persistent atrial fibrillation 11/28/2019 HTN, goal below 130/80 04/26/2019 Type 2 diabetes mellitus with diabetic neuropath y 02/11/2019 Chronic diarrhea 05/14/2010 Type 2 diabetes mellitus wit h hemoglobin A1c goal of 7.0%-8.0% 01/08/2010 Overview: ICD-10 update of inactive term DYSLIPIDEMIA, GOAL LDL BELOW 70 10/12/2009 Overview: Per Lipid Taxonomy. Vitamin D deficiency 12/12/2007 longterm current use of anticoagulant therapy 0 05/27/2005 [...] Nummular eczema 09/06/2013 07/26/2021 [employer] Other*[id number] 02/03/2012 11/29/2016 Overview: Study Titile: [employer] Markers for Patients with Cardiovascular Disease Project # [id number] PI: Merary Rivera MD Please call [phone] with study related questions Irritable bowel syndrome 05/14/201001/2021 Type 2 diabetes mellitus wit h hemoglobin A1c goal of less than 7.0% 08/06/2009 01/08/2010 Overview: Modified per Diabetes protocol #14. ICD-10 update of inactive term ADVANCE DIRECTIVE INFORMATION 09/27/2007 07/26/2021 Overview: Yes-copy on file Carpal tunnel syndrome 04/14/200404/01 Atherosclerosis of [place] co ronary artery of [place] heart without angina pectoris 04/14/2004 Overview: [...] this encounter Progress Notes * Shania Novak, [facility] - 06/12/2024 11:05 AM EDT Medication Therapy Disease Management Clinic - Diabetes Management Progress Note Tootie Almanza, identified by name and date of , is a 84 year old female being seen for diabetes management/education. Patient presents for return diabetic visit. DIABETES: Current diabetic medications: DEC Metformin ER 500mg, take 2 tablets daily Jardiance 25mg daily Basaglar 25 units daily A1C Goal <8% GFR 45 as of 05/24/24 Medication Injection Site: Abdomen Lifestyle: Diet: eating a lot of fruit lately Exercising MWF for 30-60 mins RECORA -- started May 27; plans to do it for a little over a year Glucose Review/SMBG: Readings obtained from patient documented BG logbook Pre am Post am Pre Lunch Post Lunch Pre pm Post pm HS 154 150 123 117 103 132 133 133 133 180 141 131 151 175 190 194 245 165 169 158 144 Average 153 #DIV/0! #DIV/0! #DIV/0! #DIV/0! #DIV/0! #DIV/0! Hi 245 0 0 0 0 0 0 Lo 103 0 0 [address]2105 0 0 0 0 0 0 Range [...] 04/23/24 118/64 Blood pressure at goal: yes HYPERLIPIDEMIA: Recent Labs Units 01/29/24 0924 02/01/23 1039 07/29/22 1046 LDL CHOLESTEROL (DIRECT MEASURE) - [facility] mg/dL 60 63 49 Does patient have clinical ASCVD? No, is patient LDL less than 70mg/dL? Yes HEALTH MAINTENANCE REVIEW: Health Maintenance Due Topic Date Due Colonoscopy 02/07/2022 *BISPHONATE OR OTHER ACCEPTABLE MEDICATION NEEDED FOR OSTEOPOROSIS (REFER TO SMARTSET #1146) Never done COVID-19 Vaccine ( season) 2023 ASSESSMENT & PLAN: ICD-10-CM 1. Type 2 diabetes mellitus with hemoglobin A1c goal of 7.0%-8.0% ([facility]) E11.9 Considerations: - renal function - pt declines CGM as of 08/30/23, will only check BG in the AM - chart review shows ozempic intolerance - obtaining Basaglar through [facility] ([facility]: [phone]) --> reapplied 08/30/23 - cost - not eligible for PACE BG Readings - Blood sugars uncontrolled. A1c has increased now to 9%. Reviewed stair stepping trendthat is likely occurring with blood sugars, as her AM readings are in the low 100s most days. I printed out alternating checking BG logs and requested that she do it now until next visit to give us abetter overall picture of BG control Medications - Reviewed current regimen, patient is adherent to regimen. Agreeable to start prandin-explained that she is to skip it if skipping a meal. Diet, Exercise, Lifestyle - Pt and have started a home exercise program 3 days a week . Discussed with patient and encouraged her to continue. Patient is agreeable to SMBG 1 time(s) daily. Patient aware to contact clinic if any hypoglycemia before next visit. MEDICATION CHANGES: yes, see below; preferred pharmacy: [facility] Medications: Metformin ER 500mg, take 2 [...] UP: Return to clinic in 3 weeks 07/01/2024 I spent a total of 30-39 minutes (exact time 32 mins) on the date of service in preparation, delivery, and documentation of the care provided to Tootie Almanza excluding any time spent in the performance of separately billed services. Shania Novak [facility] Clinical Pharmacist - Ross Lift Operator Medication Therapy Management Clinic 06/12/2024, 11:05 AM documented in this encounter Plan of Treatment Upcoming Encounters Date Type Department Care Team (Late st Contact Info) Description 06/14/2024 9:00 AM EDT Cardiac Studies Cardiology, [facility] [place] [address] [address] [facility] 132 [facility] [place] [address] 07/01/2024 1:30 PM EDT Office Visit Pharmacy, [address] [address] [facility] [place] [address] 07/01/2024 1:40 PM EDT Anticoagulation Pharmacy, [place] [address] [place] [facility] [place] [address] [place], [facility] [address] [place] [facility] [address] 09/02/2024 10:00 AM EST Office Visit Cardiology, [facility] [place] [address] [place] Momin PA-C [address] [place] [address] 09/23/2024 9:00 AM EST Office Visit Family Practice, [place] [address] [place] [facility] [place] [address] Pete Ambriz MD [address] [place] [facility] [place] [address] 05/14/2025 10:00 AM EDT Nurse Only Ancillary Department, [place] [address] [place] [facility] [place] [address] [place], Nurse Annual Wellness [address] [facility] [place] [id number] Scheduled Procedures Name Priority Associated Diagnoses Date/Ti [...] Additional history exists CKD HGB USE SMARTSET 82306 01/28/202501/28, 01/29/2024, 12/27/2023, Additional history exists CKD PHOS USE SMARTSET 29274 01/28/2025 04/0 05/2024, 02/01/2023, 07/29/2022, Additional history exists Diabetic Foot Exam 04/23/2025 04/23/2024, 1 , 07/26/2021, Additional history exists Adult Wellness Visit 05/08/2025 05/08/2024, 05/05/20 23 Depression Screening 05/08/2025 05/08/2024 Albumin/Creatinine Ratio 05/24/2025 08 024, 07/25/2023, 02/01/2023, Additional history exists DXA Scan 06/04/2026 06/04/2024, 02/20, 03/01/2022, Additional history exists VITAMIN D LEVEL ONCE IN A LIFETIME-USE SMARTSET# 21293 Completed 08/28/2008, 04/07/2008, 12/04/2007 Pneumococcal Vaccine: 65+ [...] mellitus with hemoglobin A1c goal of 7.0%-8.0% (HCC)- Primary documented in this encounter Advance Directives * No Code Status (Latest Code Status on File) Date Activated Date Inactivated Comments 01/11/2005 2:56 PM 01/11/2005 3:56 PM Care Teams Machine Maintenance Mechanic Relationship Specialty Start Date End Date Pete Ambriz MD [address] [place] [address] PCP - General Internal Medicine 05/08/24 documented as of this encounter
--- OUTSIDE RECORDS SUMMARY | 2024-10-24 23:48 | External Medical Summary | Summary of Care ---
Author Name Unknown Organization [facility] Address [address] [facility] [place] [address] Phone [phone] Care Team Providers Care Lab Assistant Name Role Phone Pete Ambriz MD Primary Care Provider [phone] Reason for Visit * Reason Comments Cardiac Rehab Encounter Details Date Type Department Care Team (Late st Contact Info) Description 05/17/2024 9:00 AM EDT Telemedicine Cardiac Rehab [facility] [address] [place] [address] [place] [address] [facility] [address] [place] [address] [place] [address] Aortocoronary bypass status* Allergies Active Allergy Reactions Criticality Noted Date Comments Cephalexin Unknown 09/12/2002 Lisinopril 12/07/2018 Cough Oxycodone 12/04/2003 nausea, stomach pains Tetanus Toxoid 01/28/2009 Local reaction, fever documented as of this encounter (statuses as of 05/22/2024) Medications Medication Sig Dispensed Refills Start Date [...] the morning. 100 Tablet 3 4 Active metFORMIN HCl ER 500 MG Oral Tablet Extended Release 24 Hour (Glucophage XR)Indications:Type 2 diabetes mellitus with hemoglobin A1c goal of 7.0%-8.0% (HCC) TAKE 2 TABLETS BY MOUTH TWICE DAILY WITH MEALS 360 Tablet 1 4 Active Metoprolol Tartrate 100 MG Oral [...] the morning. 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 Pulmonary hypertension DISH (diffuse idiopathic skeletal hyperostosis) documented as of this encounter (statuses as of 05/22/2024) Resolved Problems Problem Noted Date Diagnosed Date Resolved Date Traumatic open wound of right lower leg 08/24/2021 07/18/2022 Overview: Noted healed 09/2021 Wound Center note Other psoriasis 07/26/2021 07/26/2021 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 Viral URI with cough 07/08/2016 020 Bacterial pneumonia 05/18/2016 06/04/20 20 Overview: Acute. Nausea without vomiting 05/18/201605/23 Hyponatremia 05/18/2016 07/26/2021 Nummular eczema 09/06/2013 07/26/2021 [employer] Other*[id number] 02/03/2012 11/29/2016 Overview: Study Titile: Genomics Markers for Patients with Cardiovascular Disease Project # [id number] PI: Merary Rivera MD Please call [phone] with study related questions Irritable bowel syndrome 05/14/201001/2021 Type 2 diabetes mellitus wit h hemoglobin A1c goal of less than 7.0% 08/06/2009 01/08/2010 Overview: Modified per Diabetes protocol #14. ICD-10 update of inactive term ADVANCE DIRECTIVE INFORMATION 09/27/2007 07/26/2021 Overview: Yes-copy on file Carpal tunnel syndrome 04/14/200404/01 Atherosclerosis of [place] co ronary artery of [place] heart without angina pectoris 04/14/2004 [...] as of this encounter (statuses as of 05/22/2024) Immunizations Name Administration Dates Next Due COVID-19 mRNA, LNP-s, No Pre serve, 2-Dose Series ([employer]) 06/22/2021,05/08/2021 Pneumococcal Conjugate Vacc, 13 Valent (Prevnar) [...] * Hali De La Torre [facility] - 05/22/2024 9:08 PM EDT Session Encounter: [facility] Int[facility] in partnership with [employer] is a specialized [facility] that specializes in providing virtual cardiac rehab services. Session #1 completed. Please refer to scan document for session details. Session type: Education Individual Session duration: 35 minutes documented in this encounter Plan of Treatment Upcoming Encounters Date Type Department Care Team (Late st Contact Info) Description 05/24/2024 9:00 AM EDT Office Visit [facility] [address] [address] Pete Ambriz MD [address] [facility], [place] [address] 06/12/2024 11:10 AM EDT Anticoagulation Pharmacy, [place] [address] [facility], [place] [address] [facility] [address] [place] [facility] [place] [address] 06/12/2024 11:20 AM EDT Office Visit Pharmacy, [place] [address] [facility], [place] [address] [facility] [address] [place] [facility] [address] 06/14/2024 9:00 AM EDT Cardiac Studies Cardiology, [facility] [address] [facility] [address] [facility] 132 [place] [address] 09/02/2024 10:00 AM EST Office Visit Cardiology, [facility] [address] [facility] [address] [place] Momin PACrystalC [facility] [place] [address] 05/14/2025 10:00 AM EDT Nurse Only Ancillary Department, [place] [address] [facility], [place] [address] [place], Nurse Annual Wellness [address] [facility], [place] [address] Scheduled Orders Name Type Priority Associated Diagnoses Orde r Schedule CARDIAC REHAB,INTENSE W/EXERCISE,1 SESSION Procedures Routine Aortocoronary bypass status 36 Occurrences starting 05/22/2024 until 05/22/2025 Scheduled Procedures Name Priority Associated Diagnoses Date/Ti [...] 08/30/2023, 09/23/2022, 10/01/2019, Additional history exists GFR 06/28/2024 12/27/2023, 1012/2022, 02/01/2023, Additional history exists Albumin/Creatinine Ratio 07/25/2024 023, 02/01/2023, 06/22/2020, Additional history exists HbA1c 07/30/2024 01/29/2024, 1012/2022, 02/01/2023, Additional history exists Diabetic Eye Exam 12/01/2024 12/01/2023, , 11/15/2022, Additional history exists B-12 01/28/2025 01/29/2024, 01/21, 07/29/2022, Additional history exists CKD HGB USE SMARTSET 16168 01/28/202501/28, 01/29/2024, 12/27/2023, Additional history exists CKD PHOS USE SMARTSET 93130 01/28/2025 04/0 05/2024, 02/01/2023, 07/29/2022, Additional history exists Diabetic Foot Exam 04/23/2025 04/23/2024, 1 , 07/26/2021, Additional history exists Depression Screening 05/08/2025 05/08/2024 VITAMIN D LEVEL ONCE IN A LIFETIME-USE SMARTSET# 53812 Completed 08/28/2008, 04/07/2008, 12/04/2007 Pneumococcal Vaccine: 65+ [...] 2:56 PM 01/11/2005 3:56 PM Care Teams Lab Assistant Relationship Specialty Start Date End Date Pete Ambriz MD [address] [place] [address] PCP - General Internal Medicine 05/08/24 documented as of this encounter
--- OUTSIDE RECORDS SUMMARY | 2024-10-24 23:48 | External Medical Summary | Summary of Care ---
Author Name Unknown Organization [facility] Address [address] [place] [address] Phone [phone] Care Team Providers Care Blackjack Pit Boss Name Role Phone Pete Ambriz MD Primary Care Provider [phone] Reason for Visit * Reason Comments eRx-Medication Refill Encounter Details Date Type Department Care Team (Late st Contact Info) Description 05/21/2024 Refill Pharmacy, [address] [address] Laverne Becker, DO [address] [place] [address] 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, unspecified type (HCC); Anticoagulation management encounter; Aortocoronary bypass status; 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); halfway current use of anticoagulant therapy Allergies Active Allergy Reactions Criticality Noted Date Comments Cephalexin Unknown 09/12/2002 Lisinopril 12/07/2018 Cough Oxycodone 12/04/2003 nausea, stomach pains Tetanus Toxoid 01/28/2009 Local reaction, fever documented as of this encounter (statuses as of 05/21/2024) Medications Medication Sig Dispensed Refills Start Date [...] morning. 100 Tablet 3 03/21/20 24 Active metFORMIN HCl ER 500 MG Oral Tablet Extended Release 24 Hour (Glucophage XR)Indications:Ty pe 2 diabetes mellitus with hemoglobin A1c goal of 7.0%-8.0% (HCC) TAKE 2 TABLETS BY MOUTH TWICE DAILY WITH MEALS 360 Tablet 1 04/05/20 24 Active Metoprolol Tartrate 100 MG Oral Tablet (Lopressor)Indica tions: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) TAKE 1 TABLET BY MOUTH TWICE DAILY 180 Tablet 3 04/19/20 24 Active DULoxetine HCl 30 MG Oral Capsule Delayed Release Particles (Cymbalta) Take 2 Capsules by mouth in the morning. 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 TAKE 1/2 TO 1 TABLET BY MOUTH ONCE DAILY DIRECTED BY [facility] 90 Tablet 3 05/21/20 24 Active Warfarin Sodium 2 MG Oral Tablet (Coumadin)Indicat ions:Atrial fibrillation, unspecified type (HCC),Anticoagula tion management encounter,Aortoco ronary bypass status,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),halfway current use of anticoagulant therapy TAKE 1/2 TO 1 TABLET BY MOUTH ONCE DAILY DIRECTED BY [facility]ADIN CLINIC 90 Tablet 3 03/07/20 23 024 Discontinued Hospital, Clinic, or Other Facility Administered Medication Ordered Dose Route Frequency Start Date End Date Status potassium chloride ER tab 10 mEqIndications:Acute on chronic diastolic congestive heart failure (HCC) 10 mEq OR Daily(AM) 12/24/2019 Activ e documented as of this encounter (statuses as of 05/21/2024) Active Problems Problem Noted Date Diagnosed Date [...] with acute decompensat ion 12/19/2019 Atherosclerosis of [place] co ronary artery of [place] heart without angina pectoris 12/19/2019 Persistent atrial fibrillation 11/28/2019 HTN, goal below 130/80 04/26/2019 Type 2 diabetes mellitus with diabetic neuropath y 02/11/2019 Chronic diarrhea 05/14/2010 Type 2 diabetes mellitus wit h hemoglobin A1c goal of 7.0%-8.0% 01/08/2010 Overview: ICD-10 update of inactive term DYSLIPIDEMIA, GOAL LDL BELOW 70 10/12/2009 Overview: Per Lipid Taxonomy. 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 Pulmonary hypertension DISH (diffuse idiopathic skeletal hyperostosis) documented as of this encounter (statuses as of 05/21/2024) Resolved Problems Problem Noted Date Diagnosed Date [...] Nummular eczema 09/06/2013 07/26/2021 [employer] Other*[id number] 02/03/2012 11/29/2016 Overview: Study Titile: [employer] Markers for Patients with Cardiovascular Disease Project # [id number] PI: Merary Rivera MD Please call [phone] with study related questions Irritable bowel syndrome 05/14/201001/2021 Type 2 diabetes mellitus wit h hemoglobin A1c goal of less than 7.0% 08/06/2009 01/08/2010 Overview: Modified per Diabetes protocol #14. ICD-10 update of inactive term ADVANCE DIRECTIVE INFORMATION 09/27/2007 07/26/2021 Overview: Yes-copy on file Carpal tunnel syndrome 04/14/200404/01 Atherosclerosis of [place] co ronary artery of [place] heart without angina pectoris 04/14/2004 Overview: Duplicate. [...] as of this encounter (statuses as of 05/21/2024) Immunizations Name Administration Dates Next Due COVID-19 mRNA, LNP-s, No Pre serve, 2-Dose Series ([employer]) 06/22/2021,05/08/2021 Pneumococcal Conjugate Vacc, 13 Valent (Prevnar) [...] Notes * Telephone Encounter - Lizzy Novak [facility] - 05/21/2024 11:45 AM EDT Signed Prescriptions: Disp Refills Warfarin Sodium 2 MG Oral Tablet (Coumadin)90 Tab*3 Sig: TAKE 1/2 TO 1 TABLET BY MOUTH ONCE DAILY DIRECTED BY COUMADIN CLINICAuthorizing Provider: Devika AMBRIZ User: LIZZY NOVAK documented in this encounter Plan of Treatment Upcoming Encounters Date Type Department Care Team (Late st Contact Info) Description 05/24/2024 9:00 AM EDT Office Visit [address] [phone] Pete Ambriz MD [address] [place] [address] 06/12/2024 11:10 AM EDT Anticoagulation Pharmacy, [place] [address] [place] [address] [place] [address] [place] [address] 06/12/2024 11:20 AM EDT Office Visit Pharmacy, [address] [place] [address] [place] [address] [place] [address] 06/14/2024 9:00 AM EDT Cardiac Studies Cardiology, [facility] [address] [facility] [place] [address] [facility] [address] [place] [address] 09/02/2024 10:00 AM EST Office Visit Cardiology, [facility] [address] [facility] [place] [address] [place] Momin PA-C [address] [place] [address] 05/14/2025 10:00 AM EDT Nurse Only Ancillary Department, [place] [address] [facility] [address] [place], Nurse [facility] [address] [place] [address] Scheduled Procedures Name Priority Associated Diagnoses Date/Ti [...] 06/22/2020, Additional history exists HbA1c 07/30/2024 01/29/2024, 100 12/2022, 02/01/2023, Additional history exists Diabetic Eye Exam 12/01/2024 12/01/2023, , 11/15/2022, Additional history exists B-12 01/28/2025 01/29/2024, 0411/2022, 07/29/2022, Additional history exists CKD HGB USE SMARTSET 32421 01/28/202501/28, 01/29/2024, 12/27/2023, Additional history exists CKD PHOS USE SMARTSET 19228 01/28/2025 04/0 05/2024, 02/01/2023, 07/29/2022, Additional history exists Diabetic Foot Exam 04/23/2025 04/23/2024, 1 , 07/26/2021, Additional history exists Depression Screening 05/08/2025 05/08/2024 VITAMIN D LEVEL ONCE IN A LIFETIME-USE SMARTSET# [id number] Completed 08/28/2008, 04/07/2008, 12/04/2007 Pneumococcal Vaccine: 65+ [...] as of this encounter Visit Diagnoses Diagnosis Atrial fibrillation, unspecified type (HCC) Anticoagulation management encounter Encounter for therapeutic drug monitoring Aortocoronary bypass status Postsurgical aortocoronary bypass status 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
--- OUTSIDE RECORDS SUMMARY | 2024-10-24 23:48 | External Medical Summary | Summary of Care ---
Author Name Unknown Organization [facility] Address [address] [facility] [place] [address] Phone [phone] Care Team Providers Care Quality Inspector Name Role Phone Pete Ambriz MD Primary Care Provider [phone] Encounter Details Date Type Department Care Team (Late st Contact Info) Description 05/14/2024 Population Health External Data Unspecified Department Allergies Active Allergy Reactions Criticality Noted Date Comments Cephalexin Unknown 09/12/2002 Lisinopril 12/07/2018 Cough Oxycodone 12/04/2003 nausea, stomach pains Tetanus Toxoid 01/28/2009 Local reaction, fever documented as of this encounter (statuses as of 05/17/2024) Medications Medication Sig Dispensed Refills Start Date End Date Status Vitamin D 50 MCG (1999) Oral CapsuleIndications: Supplement Take 5,000 Units by mouth at bedtime. Active B-12 500 MCG Oral TabletIndications:S upplement Take by mouth 1 Tablet daily . Active Warfarin Sodium 2 MG Oral Tablet (Coumadin)Indicatio ns:Atrial fibrillation, unspecified type (HCC),Anticoagulati on management encounter,Aortocoro nary bypass status,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),care home current use of anticoagulant therapy TAKE 1/2 TO 1 TABLET BY MOUTH ONCE DAILY DIRECTED BY COUMADIN CLINIC 90 Tablet 3 3 Active Furosemide 20 MG Oral Tablet (Lasix)Indications: [...] as of this encounter (statuses as of 05/17/2024) Active Problems Problem Noted Date Diagnosed Date [...] with acute decompensat ion 12/19/2019 Atherosclerosis of [place] co ronary artery of [place] heart without angina pectoris 12/19/2019 Persistent atrial fibrillation 11/28/2019 HTN, goal below 130/80 04/26/2019 Type 2 diabetes mellitus with diabetic neuropath y 02/11/2019 Chronic diarrhea 05/14/2010 Type 2 diabetes mellitus wit h hemoglobin A1c goal of 7.0%-8.0% 01/08/2010 Overview: ICD-10 update of inactive term DYSLIPIDEMIA, GOAL LDL BELOW 70 10/12/2009 Overview: Per Lipid Taxonomy. 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 0 05/27/2005 Overview: ICD-10 update of inactive term Aortocoronary bypass status 10/17/2002 NONTOX MULTINODUL GOITER Cardiac pacemaker in situ Overview: medtronic dual chamber for tachybrady Pulmonary hypertension DISH (diffuse idiopathic skeletal hyperostosis) documented as of this encounter (statuses as of 05/17/2024) Resolved Problems Problem Noted Date Diagnosed Date [...] Nummular eczema 09/06/2013 07/26/2021 [employer] Other*[id number] 02/03/2012 11/29/2016 Overview: Study Titile: [employer] Markers for Patients with Cardiovascular Disease Project # [id number] PI: Merary Rivera MD Please call [phone] with study related questions Irritable bowel syndrome 05/14/201001/2021 Type 2 diabetes mellitus wit h hemoglobin A1c goal of less than 7.0% 08/06/2009 01/08/2010 Overview: Modified per Diabetes protocol #14. ICD-10 update of inactive term ADVANCE DIRECTIVE INFORMATION 09/27/2007 07/26/2021 Overview: Yes-copy on file Carpal tunnel syndrome 04/14/200404/01 Atherosclerosis of [place] co ronary artery of [place] heart without angina pectoris 04/14/2004 Overview: Duplicate. [...] as of this encounter (statuses as of 05/17/2024) Immunizations Name Administration Dates Next Due COVID-19 mRNA, LNP-s, No Pre serve, 2-Dose Series ([employer] ([employer])) 06/22/2021,05/08/2021 Pneumococcal Conjugate Vacc, 13 Valent (Prevnar) [...] Description 05/24/2024 9:00 AM EDT Office Visit Family [facility], [place] [address] [facility] [place] [phone] Pete Ambriz MD [address] [place] [id number] 06/12/2024 11:10 AM EDT Anticoagulation Pharmacy, [place] [address] [place] [address] [facility] [address] [facility] [place] [address] 06/12/2024 11:20 AM EDT Office Visit Pharmacy, [place] [address] [facility] [place] [address] [place] [facility] [address] [place] [address] 06/14/2024 9:00 AM EDT Cardiac Studies Cardiology, [facility] [address] [facility] [address] [facility] [address] [place] [address] 09/02/2024 10:00 AM EST Office Visit Cardiology, [facility] [address] [facility] [address] [place] Momin PA-C [address] [place] [address] 05/14/2025 10:00 AM EDT Nurse Only Ancillary Department, [place] [address] [facility] [address] [place], Nurse [facility] [address] [place] [address] Scheduled Procedures Name Priority Associated Diagnoses Date/Ti [...] 10/01/2019, Additional history exists GFR 06/28/2024 12/27/2023, 100 12/2022, 02/01/2023, Additional history exists Albumin/Creatinine Ratio 07/25/2024 023, 02/01/2023, 06/22/2020, Additional history exists HbA1c 07/30/2024 01/29/2024, 1012/2022, 02/01/2023, Additional history exists Diabetic Eye Exam 12/01/2024 12/01/2023, , 11/15/2022, Additional history exists B-12 01/28/2025 01/29/2024, 01/21, 07/29/2022, Additional history exists CKD HGB USE SMARTSET 95513 01/28/202501/28, 01/29/2024, 12/27/2023, Additional history exists CKD PHOS USE SMARTSET 24388 01/28/2025 04/0 05/2024, 02/01/2023, 07/29/2022, Additional history exists Diabetic Foot Exam 04/23/2025 04/23/2024, 1 , 07/26/2021, Additional history exists Depression Screening 05/08/2025 05/08/2024 VITAMIN D LEVEL ONCE IN A LIFETIME-USE SMARTSET# 21164 Completed 08/28/2008, 04/07/2008, 12/04/2007 Pneumococcal Vaccine: 65+ [...] 2:56 PM 01/11/2005 3:56 PM Care Teams Quality Inspector Relationship Specialty Start Date End Date Pete Ambriz MD [address] [place] [address] PCP - General Internal Medicine 05/08/24 documented as of this encounter
--- OUTSIDE RECORDS SUMMARY | 2024-10-24 23:48 | External Medical Summary ---
Author Name Unknown Address Unknown Organization [id number]:[facility] [place] - [address] [place] [address] Laboratory Report Ordering Provider Test Date Status GLORIA STEINBERG 05/24/2024 09:45:17 Final Observation Date Value Abnormality Reference (Units ) Status MYCODE SPECIMEN-SST 05/24/2024 09:45:17 Freezing of extracted DNA, whole blood and/or serum. Final Performing Location [facility] [place] - [address] [place] [address]
--- OUTSIDE RECORDS SUMMARY | 2024-10-24 23:48 | External Medical Summary ---
Author Name Unknown Address Unknown Organization [id number]:[facility] [place] - [address] [place] [address] Laboratory Report Ordering Provider Test Date Status NIKITA BURKS 05/24/2024 09:46:36 Final Normal: <30 mg/g creatinine< br/>High: 30-300 mg/g creatinine
Very High: >300 mg/g creatinine
Nephrotic: >2200 mg/g creatinine Observation Date Value Abnormality Reference (Units ) Status Albumin, Urine 05/24/2024 09:46:36 1.93 (mg/dL) Final Creatinine, Urine 05/24/2024 09:46:36 66 (mg/dL) Final Albumin/Creatinine [Mass Ratio] in Urine 05/24/2024 09:46:36 29 <30 (mg/g Creat) Final Performing Location [facility] [place] - [address] [place] [address]
--- OUTSIDE RECORDS SUMMARY | 2024-10-24 23:48 | External Medical Summary ---
Author Name Unknown Address Unknown Organization [id number]:[facility] [place] - [address] [place] [address] Laboratory Report Ordering Provider Test Date Status NIKITA BURKS 05/24/2024 09:45:17 Final Observation Date Value Abnormality Reference (Units ) Status BUN 05/24/2024 09:45:17 22 Above high normal 6-20 (mg/dL) Final Creatinine 05/24/2024 09:45:17 1.2 Above high normal 0.5-1.0 (mg/dL) Final Glomerular filtration rate/1.73 sq M.predicted [Volume Rate/Area] in Serum, Plasma or Blood by Creatinine-based formula (CKD-EPI) 05/24/2024 09:45:17 45 Below low normal >=60 (mL/min) Final eGFR is calculated based on the CKD-EPI 2020 equation. Sodium 05/24/2024 09:45:17 139 135-146 (m mol/L) Final Potassium 05/24/2024 09:45:17 5.4 Above high normal 3. 5-5.1 (mmol/L) Final Cl 05/24/2024 09:45:17 98 98-107 (mm ol/L) Final CO2 05/24/2024 09:45:17 31 22-32 (mmo l/L) Final Anion gap 05/24/2024 09:45:17 10 7-15 (mmol /L) Final Glucose 05/24/2024 09:45:17 208 Above high normal 70 -120 (mg/dL) Final Albumin 05/24/2024 09:45:17 4.5 3.8-5.0 (g /dL) Final AST (Aspartate aminotransferase) 05/24/2024 09:45:17 24 10-35 (U/L) Fin al Alk Phos 05/24/2024 09:45:17 61 35-130 (U/ L) Final Bilirubin, Total 05/24/2024 09:45:17 0.4 <=1 .2 (mg/dL) Final Calcium 05/24/2024 09:45:17 10.3 Above high normal 8. 4-10.2 (mg/dL) Final Protein 05/24/2024 09:45:17 7.5 6.0-8.3 (g /dL) Final ALT (Alanine aminotransferase) 05/24/2024 09:45:17 27 10-35 (U/L) Jurgen joyce Performing Location LAB[facility]ORY [facility] [place] - [address] [facility] [address]
--- OUTSIDE RECORDS SUMMARY | 2024-10-24 23:48 | External Medical Summary | Summary of Care ---
Author Name Unknown Organization [facility] Address [address] [place] [address] Phone [phone] Care Team Providers Care Speedometer Mechanic Name Role Phone Pete Ambriz MD Primary Care Provider [phone] Reason for Visit * Reason Comments Outpatient Testing Encounter Details Date Type Department Care Team (Late st Contact Info) Description 05/24/2024 9:50 AM EDT Laboratory Laboratory, [place] [address] [place] [address] [place], [facility] [address] [place] [address] [employer] Other*[id number]; Type 2 diabetes mellitus with hemoglobin A1c goal of 7.0%-8.0% ([facility]); Type 2 diabetes mellitus with stage 3a chronic kidney disease, without long-term current use of insulin ([facility]); Hypertensive heart and kidney disease with chronic diastolic congestive heart failure and stage 3a chronic kidney disease ([facility]); Persistent atrial fibrillation ([facility]); HTN, goal below 130/80 Allergies Active Allergy Reactions Criticality Noted Date Comments Cephalexin Unknown 09/12/2002 Lisinopril 12/07/2018 Cough Oxycodone 12/04/2003 nausea, stomach pains Tetanus Toxoid 01/28/2009 Local reaction, fever documented as of this encounter (statuses as of 05/24/2024) Medications Medication Sig Dispensed Refills Start Date [...] management encounter,Aortocoro nary bypass status,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),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 TAKE 1/2 TO 1 TABLET BY MOUTH ONCE DAILY DIRECTED BY [facility] 90 Tablet 3 4 Active Hospital, Clinic, or Other Facility Administered Medication Ordered Dose Route Frequency Start Date End Date Status potassium chloride ER tab 10 mEqIndications:Acute on chronic diastolic congestive heart failure (HCC) 10 mEq OR Daily(AM) 12/24/2019 Activ e documented as of this encounter (statuses as of 05/24/2024) Active Problems Problem Noted Date Diagnosed Date [...] macular edema, left eye 12/28/2020 Atherosclerosis of [place] co ronary artery of [place] heart without angina pectoris 12/19/2019 Persistent atrial fibrillation 11/28/2019 HTN, goal below 130/80 04/26/2019 Type 2 diabetes mellitus with diabetic neuropath y 02/11/2019 Chronic diarrhea 05/14/2010 Type 2 diabetes mellitus wit h hemoglobin A1c goal of 7.0%-8.0% 01/08/2010 Overview: ICD-10 update of inactive term DYSLIPIDEMIA, GOAL LDL BELOW 70 10/12/2009 Overview: Per Lipid Taxonomy. 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 0 05/27/2005 Overview: ICD-10 update of inactive term Aortocoronary bypass status 10/17/2002 NONTOX MULTINODUL GOITER Cardiac pacemaker in situ Overview: medtronic dual chamber for tachybrady Pulmonary hypertension DISH (diffuse idiopathic skeletal hyperostosis) documented as of this encounter (statuses as of 05/24/2024) Resolved Problems Problem Noted Date Diagnosed Date [...] Nummular eczema 09/06/2013 07/26/2021 [employer] Other*[id number] 02/03/2012 11/29/2016 Overview: Study Titile: [employer] Markers for Patients with Cardiovascular Disease Project # [id number] PI: Merary Rivera MD Please call [phone] with study related questions Irritable bowel syndrome 05/14/201001/2021 Type 2 diabetes mellitus wit h hemoglobin A1c goal of less than 7.0% 08/06/2009 01/08/2010 Overview: Modified per Diabetes protocol #14. ICD-10 update of inactive term ADVANCE DIRECTIVE INFORMATION 09/27/2007 07/26/2021 Overview: Yes-copy on file Carpal tunnel syndrome 04/14/200404/01 Atherosclerosis of [place] co ronary artery of [place] heart without angina pectoris 04/14/2004 Overview: Duplicate. [...] as of this encounter (statuses as of 05/24/2024) Immunizations Name Administration Dates Next Due COVID-19 mRNA, LNP-s, No Pre serve, 2-Dose Series (VIPerks) 06/22/2021,05/08/2021 Pneumococcal Conjugate Vacc, 13 Valent (Prevnar) [...] Description 06/12/2024 11:10 AM EDT Anticoagulation Pharmacy, [place] [address] [facility], [place] [address] [facility] [address], [place] [address] 06/12/2024 11:20 AM EDT Office Visit Pharmacy, [place] [address] [facility], [place] [address] [facility] [address] [facility], [place] [address] 06/14/2024 9:00 AM EDT Cardiac Studies Cardiology, [facility] [address] [facility] [address] [place] [address] 09/02/2024 10:00 AM EST Office Visit Cardiology, [facility] [address] [facility] [place] [address] [place] Momin [facility] [address] [facility], [place] [address] 09/23/2024 9:00 AM EST Office Visit Family Practice, [place] [address] [facility], [place] [address] Pete Ambriz [facility] [address] [facility] [address] 05/14/2025 10:00 AM EDT Nurse Only Ancillary Department, [place] [address] [facility] [address] [place], Nurse [facility] [address] [place] [address] Pending Results Name Type Priority Associated Diagnoses Date /Time MYCODE SUBSEQUENT ADULT Lab Routine [employer] Other*[id number] 05/24/2024 9:45 AM EDT HEMOGLOBIN A1C Lab Routine Type 2 diabetes mellitus with hemoglobin A1c goal of 7.0%-8.0% (HCC) 05/24/2024 9:45 AM EDT COMPREHENSIVE METABOLIC PANEL Lab Routine Type 2 diabetes mellitus with stage 3a chronic kidney disease, without long-term current use of insulin ([facility]) Hypertensive heart and kidney disease with chronic diastolic congestive heart failure and stage 3a chronic kidney disease (HCC) Persistent atrial fibrillation (HCC) HTN, goal below 130/80 05/24/2024 9:45 AM EDT MYCODE SST1 Lab Routine [employer] Other*[id number] 05/24/2024 9:45 AM EDT MYCODE SST2 Lab Routine [employer] Other*[id number] 05/24/2024 9:45 AM EDT ALBUMIN / CREATININE RATIO, URINE Lab Routine Type 2 diabetes mellitus with stage 3a chronic kidney disease, without long-term current use of insulin ([facility]) 05/24/2024 9:46 AM EDT Scheduled Procedures Name Priority Associated Diagnoses [...] 10/01/2019, Additional history exists GFR 06/28/2024 12/27/2023, 10/12/2022, 02/01/2023, Additional history exists Albumin/Creatinine Ratio 07/25/2024 023, 02/01/2023, 06/22/2020, Additional history exists HbA1c 07/30/2024 01/29/2024, 12/2022, 02/01/2023, Additional history exists Diabetic Eye Exam 12/01/2024 12/01/2023, , 11/15/2022, Additional history exists B-12 01/28/2025 01/29/2024, 01/21, 07/29/2022, Additional history exists CKD HGB USE SMARTSET 14967 01/28/202501/28, 01/29/2024, 12/27/2023, Additional history exists CKD PHOS USE SMARTSET 20899 01/28/2025 0405/2024, 02/01/2023, 07/29/2022, Additional history exists Diabetic Foot Exam 04/23/2025 04/23/2024, 1 , 07/26/2021, Additional history exists Depression Screening 05/08/2025 05/08/2024 VITAMIN D LEVEL ONCE IN A LIFETIME-USE SMARTSET# 57202 Completed 08/28/2008, 04/07/2008, 12/04/2007 Pneumococcal Vaccine: 65+ [...] this encounter Visit Diagnoses Diagnosis [employer] Other*[id number] Type 2 diabetes mellitus with hemoglobin A1c goal of 7.0%-8.0% (HCC) Type 2 diabetes mellitus with stage 3a chronic kidney disease, without long-term current use of insulin (HCC) Hypertensive heart and kidney disease with chronic diastolic congestive heart failure and stage 3a chronic kidney disease (HCC) Persistent atrial fibrillation (HCC) Atrial fibrillation HTN, goal below 130/80 Unspecified essential hypertension documented in this encounter Advance Directives * No Code Status (Latest Code Status on File) Date Activated Date Inactivated Comments 01/11/2005 2:56 PM 01/11/2005 3:56 PM Care Teams Speedometer Mechanic Relationship Specialty Start Date End Date Pete Ambriz MD [address] [place] [address] PCP - General Internal Medicine 05/08/24 documented as of this encounter
--- OUTSIDE RECORDS SUMMARY | 2024-10-24 23:48 | External Medical Summary | Summary of Care ---
Author Name Unknown Organization [facility] Address [address] [facility] [place] [address] Phone [phone] Care Team Providers Care Roller Inspector And Mender Name Role Phone Pete Ambriz MD Primary Care Provider [phone] Reason for Visit * Reason Comments Cardiac Rehab Encounter Details Date Type Department Care Team (Late st Contact Info) Description 05/28/2024 8:00 AM EDT Telemedicine Cardiac Rehab [facility], [facility] [address] [place] [address] [place] [address] [facility], Virtual Cardiac Rehab [address] [place] [address] [place] [address] Aortocoronary bypass status* Allergies Active Allergy Reactions [...] management encounter,Aortocoro nary bypass status,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),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 TAKE [...] macular edema, left eye 12/28/2020 Atherosclerosis of [place] co ronary artery of [place] heart without angina pectoris 12/19/2019 Persistent atrial [...] Nummular eczema 09/06/2013 07/26/2021 [employer] Other*[id number] 02/03/2012 11/29/2016 Overview: Study Titile: [employer] Markers for Patients with Cardiovascular Disease Project # [id number] PI: Merary Rivera MD Please call [phone] with study related questions Irritable bowel syndrome 05/14/201001/2021 Type 2 diabetes mellitus wit h hemoglobin A1c goal of less than 7.0% 08/06/2009 01/08/2010 Overview: Modified per Diabetes protocol #14. ICD-10 update of inactive term ADVANCE DIRECTIVE INFORMATION 09/27/2007 07/26/2021 Overview: Yes-copy on file Carpal tunnel syndrome 04/14/200404/01 Atherosclerosis of [place] co ronary artery of [place] heart without angina pectoris 04/14/2004 Overview: Duplicate. [...] Hali De La Torre EPC - 06/04/2024 10:16 PM EDT Session Encounter: Patient is participating in [employer]'s Intensive Cardiac Rehab Program in partnership with [employer] is a specialized [employer] that specializes in providing virtual cardiac rehab services. Session #3 completed. Please refer to scan document for session details. Session type: Education Group Session duration: 60 minutes documented in this encounter Plan of Treatment Upcoming Encounters Date Type Department Care Team (Late st Contact Info) Description 06/12/2024 11:10 AM EDT Anticoagulation Pharmacy, [place] [address] [facility], [place] [address] [facility] [address] [facility], [place] [address] 06/12/2024 11:20 AM EDT Office Visit Pharmacy, [place] [address] [facility] [address] [facility] [address] [facility], [place] [address] 06/14/2024 9:00 AM EDT Cardiac Studies Cardiology, [facility] [place] [address] [facility] [place] [address] 09/02/2024 10:00 AM EST Office Visit Cardiology, [facility] [place] [address] [place] Momin, PA-C [address] [address] 09/23/2024 9:00 AM EST Office Visit Family Practice, [place] [address] [facility] [address] Pete Ambriz MD [address] [facility] [address] 05/14/2025 10:00 AM EDT Nurse Only Ancillary Department, [place] [address] [place] [address] [place], Nurse [facility] [address] [facility] [place] [address] Scheduled Procedures Name Priority Associated Diagnoses Date/Ti [...] Additional history exists CKD HGB USE SMARTSET 07915 01/28/202501/28, 01/29/2024, 12/27/2023, Additional history exists CKD PHOS USE SMARTSET 70087 01/28/2025 04/0 05/2024, 02/01/2023, 07/29/2022, Additional history exists Diabetic Foot Exam 04/23/2025 04/23/2024, 1 , 07/26/2021, Additional history exists Adult Wellness Visit 05/08/2025 05/08/2024, 05/05/20 23 Depression Screening 05/08/2025 05/08/2024 Albumin/Creatinine Ratio 05/24/2025 024, 07/25/2023, 02/01/2023, Additional history exists VITAMIN D LEVEL ONCE IN A LIFETIME-USE SMARTSET# 91371 Completed 08/28/2008, 04/07/2008, 12/04/2007 Pneumococcal Vaccine: 65+ [...] 2:56 PM 01/11/2005 3:56 PM Care Teams Roller Inspector And Mender Relationship Specialty Start Date End Date Pete Ambriz MD [address] [place] [facility] [place] [address] PCP - General Internal Medicine 05/08/24 documented as of this encounter
--- OUTSIDE RECORDS SUMMARY | 2024-10-24 23:48 | External Medical Summary | Summary of Care ---
Author Name Unknown Organization [facility] Address [address] [facility] [place] [address] Phone [phone] Care Team Providers Care Sawdust Drier Name Role Phone ePte Ambriz MD Primary Care Provider [phone] Reason for Visit * Reason Comments Cardiac Rehab Encounter Details Date Type Department Care Team (Late st Contact Info) Description 05/28/2024 9:00 AM EDT Telemedicine Cardiac Rehab [facility], Virtual [address] [place] [address] [place] [address] Advanced, Virtual Cardiac Rehab [address] [place] [address] [place] [address] Aortocoronary bypass status* Allergies Active Allergy Reactions [...] on management encounter,Aortocoro nary bypass status,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),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 Session #4 completed. Please refer to scan document for session details. Session type: Education Group Session duration: 60 minutes documented in this encounter Plan of Treatment Upcoming Encounters Date Type Department Care Team (Late st Contact Info) Description 06/12/2024 11:10 AM EDT Anticoagulation Pharmacy, [place] [address] [facility], [place] [address] [facility] [address] [facility], [place] [address] 06/12/2024 11:20 AM EDT Office Visit Pharmacy, [place] [address] [address] [facility] [address] [facility] [address] [facility], [place] [address] 06/14/2024 9:00 AM EDT Cardiac Studies Cardiology, [facility] [place] [address] Billy [facility] [place] [address] 09/02/2024 10:00 AM EST Office Visit Cardiology, [facility] [place] [address] [place] Momin, PA-C [address] [facility] [place] [address] 09/23/2024 9:00 AM EST Office Visit Family Practice, [place] [address] [facility] [address] Pete Ambriz MD [address] [facility] [address] 05/14/2025 10:00 AM EDT Nurse Only Ancillary Department, [place] [address] [place] [address] [place], Nurse Annual [facility] [address] [facility] [place] [address] Scheduled Procedures Name Priority Associated Diagnoses Date/Ti [...] Additional history exists CKD HGB USE SMARTSET 29008 01/28/202501/28, 01/29/2024, 12/27/2023, Additional history exists CKD PHOS USE SMARTSET 83265 01/28/2025 04/0 05/2024, 02/01/2023, 07/29/2022, Additional history exists Diabetic Foot Exam 04/23/2025 04/23/2024, 1 , 07/26/2021, Additional history exists Adult Wellness Visit 05/08/2025 05/08/2024, 05/05/20 23 Depression Screening 05/08/2025 05/08/2024 Albumin/Creatinine Ratio 05/24/2025 024, 07/25/2023, 02/01/2023, Additional history exists VITAMIN D LEVEL ONCE IN A LIFETIME-USE SMARTSET# 06726 Completed 08/28/2008, 04/07/2008, 12/04/2007 Pneumococcal Vaccine: 65+ [...] 2:56 PM 01/11/2005 3:56 PM Care Teams Sawdust Drier Relationship Specialty Start Date End Date Pete Ambriz MD [address] [place] [facility] [place] [address] PCP - General Internal Medicine 05/08/24 documented as of this encounter
--- OUTSIDE RECORDS SUMMARY | 2024-10-24 23:48 | External Medical Summary ---
Author Name Unknown Address Unknown Organization K01:[facility] - [address] [address] Laboratory Report Ordering Provider Test Date Status SALAS BALL 05/24/2024 09:45:17 Final Observation Date Value Abnormality Reference (Units ) Status HbA1C 05/24/2024 09:45:17 9.0 Above high normal 4. 0-5.6 (%) Final The use of HbA1c to monitor glycemic status is based on normal hemoglobin and HbA composition. This test should not be used in patients with abnormal hemoglobin that affects the half life of the red blood cell or the in vivo glycation rates. Glucose, estimated average 05/24/2024 09:45:17 212 Above high normal <126 (mg/dL) Fin al Performing Location [facility] - [address] [facility] [address]
--- OUTSIDE RECORDS SUMMARY | 2024-10-24 23:48 | External Medical Summary | Summary of Care ---
Author Name Unknown Organization [facility] Address [address] [facility] [place] [address] Phone [phone] Care Team Providers Care Sprinkler Fitter Helper Name Role Phone Pete Ambriz MD Primary Care Provider [phone] Reason for Visit * Reason Comments Cardiac Rehab Encounter Details Date Type Department Care Team (Late st Contact Info) Description 05/17/2024 10:00 AM EDT Telemedicine Cardiac Rehab [facility], Virtual [address] [place] [address] [place] [address] Advanced, Virtual Cardiac Rehab [address] [place] [address] [place] [address] Aortocoronary bypass status* Allergies Active Allergy Reactions [...] with acute decompensat ion 12/19/2019 Atherosclerosis of [place] co ronary artery of [place] heart without angina pectoris 12/19/2019 Persistent atrial [...] Nummular eczema 09/06/2013 07/26/2021 [employer] Other*[id number] 02/03/2012 11/29/2016 Overview: Study Titile: Gen[employer] Markers for Patients with Cardiovascular Disease Project # [id number] PI: Merary Rivera MD Please call [phone] with study related questions Irritable bowel syndrome 05/14/201001/2021 Type 2 diabetes mellitus wit h hemoglobin A1c goal of less than 7.0% 08/06/2009 01/08/2010 Overview: Modified per Diabetes protocol #14. ICD-10 update of inactive term ADVANCE DIRECTIVE INFORMATION 09/27/2007 07/26/2021 Overview: Yes-copy on file Carpal tunnel syndrome 04/14/200404/01 Atherosclerosis of [place] co ronary artery of [place] heart without angina pectoris 04/14/2004 Overview: Duplicate. [...] mRNA, LNP-s, No Pre serve, 2-Dose Series ([employer]) 06/22/2021,05/08/2021 Pneumococcal Conjugate Vacc, 13 Valent (Prevnar) [...] Hali De La Torre EPC - 05/22/2024 9:09 PM EDT Session Encounter: Patient is participating in [facility] in partnership with [employer] is a specialized [employer] that specializes in providing virtual cardiac rehab services. Session #2 completed. Please refer to scan document for session details. Session type: Education Group Session duration: 60 minutes documented in this encounter Plan of Treatment Upcoming Encounters Date Type Department Care Team (Late st Contact Info) Description 05/24/2024 9:00 AM EDT Office Visit [facility] [address] [place] [address] Pete Ambriz MD [address] [facility], [place] [address] 06/12/2024 11:10 AM EDT Anticoagulation Pharmacy, [place] [address] [facility], [place] [address] [facility] [address] [place] [facility] [place] [address] 06/12/2024 11:20 AM EDT Office Visit Pharmacy, [place] [address] [facility], [place] [address] [facility] [address] [place] [facility] [address] 06/14/2024 9:00 AM EDT Cardiac Studies Cardiology, [facility] [address] [facility] 132 [place] [address] 09/02/2024 10:00 AM EST Office Visit Cardiology, [facility] [address] [facility] [address] [place] [facility] [place] [address] 05/14/2025 10:00 AM EDT Nurse Only Ancillary Department, [place] [address] [facility], [place] [address] [place], Nurse Annual Wellness [address] [facility], [place] [address] Scheduled Orders Name Type Priority Associated Diagnoses Orde r Schedule CARDIAC REHAB,INTENSE W/O EXCERSISE,1SESSIO Procedures Routine Aortocoronary bypass status 36 Occurrences [...] Additional history exists CKD HGB USE SMARTSET 80694 01/28/202501/28, 01/29/2024, 12/27/2023, Additional history exists CKD PHOS USE SMARTSET 23102 01/28/2025 04/0 05/2024, 02/01/2023, 07/29/2022, Additional history exists Diabetic Foot Exam 04/23/2025 04/23/2024, 1 , 07/26/2021, Additional history exists Depression Screening 05/08/2025 05/08/2024 VITAMIN D LEVEL ONCE IN A LIFETIME-USE SMARTSET# 55657 Completed 08/28/2008, 04/07/2008, 12/04/2007 Pneumococcal Vaccine: 65+ [...] 2:56 PM 01/11/2005 3:56 PM Care Teams Sprinkler Fitter Helper Relationship Specialty Start Date End Date Pete Ambriz MD [address] [place] [address] PCP - General Internal Medicine 05/08/24 documented as of this encounter
--- OUTSIDE RECORDS SUMMARY | 2024-10-24 23:48 | External Medical Summary | Summary of Care ---
Author Name Unknown Organization [facility] Address [address] [facility] [place] [address] Phone [phone] Care Team Providers Care Lime Kiln Tender Name Role Phone Pete Ambriz MD Primary Care Provider [phone] Reason for Visit * Reason Comments Cardiac Rehab Encounter Details Date Type Department Care Team (Late st Contact Info) Description 05/30/2024 8:00 AM EDT Telemedicine Cardiac Rehab Advanced, Virtual [address] [place] [address] [place] [address] Advanced, Virtual Cardiac Rehab [address] [place] [address] [place] [id number] Aortocoronary bypass status* Allergies Active Allergy Reactions [...] macular edema, left eye 12/28/2020 Atherosclerosis of hoopa co ronary artery of hoopa heart without angina pectoris 12/19/2019 Persistent atrial [...] Nummular eczema 09/06/2013 07/26/2021 [employer] Other*[id number] 02/03/2012 11/29/2016 Overview: Study Titile: [employer] Markers for Patients with Cardiovascular Disease Project # [id number] PI: Merary Rivera MD Please call [phone] with study related questions Irritable bowel syndrome 05/14/201001/2021 Type 2 diabetes mellitus wit h hemoglobin A1c goal of less than 7.0% 08/06/2009 01/08/2010 Overview: Modified per Diabetes protocol #14. ICD-10 update of inactive term ADVANCE DIRECTIVE INFORMATION 09/27/2007 07/26/2021 Overview: Yes-copy on file Carpal tunnel syndrome 04/14/200404/01 Atherosclerosis of hoopa co ronary artery of hoopa heart without angina pectoris 04/14/2004 Overview: Duplicate. [...] Hali De La Torre [facility] - 06/04/2024 10:22 PM EDT Session Encounter: Patient is participating in [facility] Intensive Cardiac Rehab Program in partnership with [facility] is a specialized [employer] that specializes in providing virtual cardiac rehab services. Session #6 completed. Please refer to scan document for session details. Session type: Education Group Session duration: 60 minutes documented in this encounter Plan of Treatment Upcoming Encounters Date Type Department Care Team (Late st Contact Info) Description 06/12/2024 11:10 AM EDT Anticoagulation Pharmacy, [place] [address] [address] [facility], [place] [address] [facility] [address] [facility], [place] [address] 06/12/2024 11:20 AM EDT [facility] [place] [address] [facility] [address] [facility] [address] [facility], [place] [address] 06/14/2024 9:00 AM EDT Cardiac Studies Cardiology, [facility] [address] [facility] [place] [address] [facility] [address] [place] [address] 09/02/2024 10:00 AM EST Office Visit Cardiology, [facility] [place] [address] [place] Momin, PA-C [address] [place] [address] 09/23/2024 9:00 AM EST Office Visit Family Practice, [place] [address] [facility] [address] Pete Ambriz [facility] [address] [facility] [address] 05/14/2025 10:00 AM EDT Nurse Only Ancillary Department, [place] [address] [place] [address] [place], Nurse Annual [facility] [address] [facility] [place] [address] Scheduled Procedures Name Priority Associated Diagnoses Date/Ti [...] Additional history exists CKD HGB USE SMARTSET 24697 01/28/202501/28, 01/29/2024, 12/27/2023, Additional history exists CKD PHOS USE SMARTSET 58265 01/28/2025 04/0 05/2024, 02/01/2023, 07/29/2022, Additional history exists Diabetic Foot Exam 04/23/2025 04/23/2024, 1 , 07/26/2021, Additional history exists Adult Wellness Visit 05/08/2025 05/08/2024, 05/05/20 23 Depression Screening 05/08/2025 05/08/2024 Albumin/Creatinine Ratio 05/24/2025 024, 07/25/2023, 02/01/2023, Additional history exists VITAMIN D LEVEL ONCE IN A LIFETIME-USE SMARTSET# 27941 Completed 08/28/2008, 04/07/2008, 12/04/2007 Pneumococcal Vaccine: 65+ [...] 2:56 PM 01/11/2005 3:56 PM Care Teams Lime Kiln Tender Relationship Specialty Start Date End Date Pete Ambriz MD [address] [place] [facility] [place] [address] PCP - General Internal Medicine 05/08/24 documented as of this encounter
--- OUTSIDE RECORDS SUMMARY | 2024-10-24 23:48 | External Medical Summary | Summary of Care ---
Author Name Unknown Organization [facility] Address [address] [place] [address] Phone [phone] Care Team Providers Care Forensic Scientist Name Role Phone Pete Ambriz MD Primary Care Provider [phone] Encounter Details Date Type Department Care Team (Late st Contact Info) Description 05/27/[address] [address] [facility] [address] [facility] [address] Allergies Active Allergy Reactions Criticality Noted Date Comments Cephalexin Unknown 09/12/2002 Lisinopril 12/07/2018 Cough Oxycodone 12/04/2003 nausea, stomach pains Tetanus Toxoid 01/28/2009 Local reaction, fever documented as of this encounter (statuses as of 05/27/2024) Medications Medication Sig Dispensed Refills Start Date End Date Status Vitamin D 50 MCG (1999 [place]) Oral [...] tion management encounter,Aortoco ronary bypass status,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),group home current use [...] MOUTH DAILY WITH MEALS 05/27/20 24 Active metFORMIN HCl ER 500 MG Oral Tablet Extended Release 24 Hour (Glucophage XR)Indications:Ty pe 2 diabetes mellitus with hemoglobin A1c goal of 7.0%-8.0% (HCC) TAKE 2 TABLETS BY MOUTH TWICE DAILY WITH MEALS 360 Tablet 1 04/05/20 24 024 Discontinued Hospital, Clinic, or Other Facility Administered Medication Ordered Dose Route Frequency Start Date End Date Status potassium chloride ER tab 10 mEqIndications:Acute on chronic diastolic congestive heart failure (HCC) 10 mEq OR Daily(AM) 12/24/2019 Activ e documented as of this encounter (statuses as of 05/27/2024) Active Problems Problem Noted Date Diagnosed Date [...] as of this encounter (statuses as of 05/27/2024) Resolved Problems Problem Noted Date Diagnosed Date [...] Nummular eczema 09/06/2013 07/26/2021 [employer] Other*[id number] 02/03/2012 11/29/2016 Overview: Study Titile: [employer] Markers for Patients with Cardiovascular Disease Project # [id number] PI: Merary Rivera MD Please call [phone] with study related questions Irritable bowel syndrome [...] as of this encounter (statuses as of 05/27/2024) Immunizations Name Administration Dates Next Due COVID-19 [...] Miscellaneous Notes * Telephone Encounter - Mercedes Overton, [facility] - 05/27/2024 3:59 PM EDT Latest Reference Range & Units 05/24/24 09:45 Sodium 135 - 146 mmol/L 139 Potassium 3.5 - 5.1 mmol/L 5.4 (H) Chloride 98 - 107 mmol/L 98 CO2 22 - 32 mmol/L 31 BUN 6 - 20 mg/dL 22 (H) Creatinine 0.5 - 1.0 mg/dL 1.2 (H) Estimated Glomerular Filtration Rate >=60 mL/min 45 (L) Anion Gap 7 - 15 mmol/L 10 Glucose 70 - 120 mg/dL 208 (H) Calcium 8.4 - 10.2 mg/dL 10.3 (H) Protein 6.0 - 8.3 g/dL 7.5 Estimated Average Glucose <126 mg/dL 212 (H) (H): Data is abnormally high (L): Data is abnormally low Updated BMP obtained. eGFR dropped to 45. Recommend Metformin dose decrease at this time. Can plan to repeat in future and reassess. Called and spoke to patient to make aware, expressed understanding. Diabetic Medications: DEC Metformin ER 500mg, take 2 tablets daily Jardiance 25mg daily Basaglar 25 units daily A1C Goal <8% GFR 45 as of 05/24/24 Mercedes Overton RP, PharmD Clinical Pharmacist - Farm Crew Leader Medication Therapy [facility] 05/27/2024, 4:02 PM [phone] documented in this encounter Plan of Treatment Upcoming Encounters Date Type Department Care Team (Late st Contact Info) Description 06/12/2024 11:10 AM EDT Anticoagulation Pharm[facility], [place] [address] [address] [facility] [address] [facility] [address] [facility] [address] 06/12/2024 11:20 AM EDT Office Visit Pharmacy [place] [facility] [address] [facility] [address] 06/14/2024 9:00 AM EDT Cardiac Studies Cardiology, [facility] [address] [facility] [place] [address] [facility] [address] [place] [address] 09/02/2024 10:00 AM EST Office Visit Cardiology, [facility] [address] [facility] [place] [address] [place] Momin PA-C [address] [facility] [place] [address] 09/23/2024 9:00 AM EST Office Visit [facility] [place] [address] [place] [address] Pete Ambriz MD [address] [place] [address] 05/14/2025 10:00 AM EDT Nurse Only Ancillary Department, [place] [address] [place] [address] [place], Nurse Annual Wellness [address] [place] [address] Scheduled Procedures Name Priority Associated Diagnoses Date/Ti [...] Additional history exists CKD HGB USE SMARTSET 19473 01/28/202501/28, 01/29/2024, 12/27/2023, Additional history exists CKD PHOS USE SMARTSET 82092 01/28/2025 04/0 05/2024, 02/01/2023, 07/29/2022, Additional history exists Diabetic Foot Exam 04/23/2025 04/23/2024, 1 , 07/26/2021, Additional history exists Depression Screening 05/08/2025 05/08/2024 Albumin/Creatinine Ratio 05/24/20252 024, 07/25/2023, 02/01/2023, Additional history exists VITAMIN D LEVEL ONCE IN A LIFETIME-USE SMARTSET# [id number] Completed 08/28/2008, 04/07/2008, 12/04/2007 Pneumococcal Vaccine: 65+ [...] with hemoglobin A1c goal of 7.0%-8.0% (HCC) documented in this encounter Advance Directives * No Code Status (Latest Code Status on File) Date Activated Date Inactivated Comments 01/11/2005 2:56 PM 01/11/2005 3:56 PM Care Teams Forensic Scientist Relationship Specialty Start Date End Date Pete Ambriz MD [address] [place] [address] PCP - General Internal Medicine 05/08/24 documented as of this encounter
--- OUTSIDE RECORDS SUMMARY | 2024-10-24 23:48 | External Medical Summary | Summary of Care ---
Author Name Unknown Organization [facility] Address [address] [place] [address] Phone [phone] Care Team Providers Care Director [employer] Name Role Phone Pete Ambriz MD Primary Care Provider [phone] Reason for Visit * Reason Comments Follow Up Pt here for 1 month follow upPt has a cough Encounter Details Date Type Department Care Team (Latest Contact Info) Description 05/24/2024 9:00 AM EDT Office Visit [address] [address] Pete Ambriz MD [address] [place] [address] Type 2 diabetes mellitus with stage 3a chronic kidney disease, without long-term current use of insulin ([facility])*; Age-related osteoporosis without current pathological fracture; 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 edema, with long-term current use of insulin ([facility]); senior living current use of anticoagulant therapy; Hypertensive heart and kidney disease with chronic diastolic congestive heart failure and stage 3a chronic kidney disease (HCC); Type 2 diabetes mellitus with peripheral artery disease (HCC); Type 2 diabetes mellitus with diabetic neuropathy, without long-term current use of insulin ([facility]); Persistent atrial fibrillation (HCC); HTN, goal below 130/80; Chronic kidney disease, stage 3a (HCC); Cardiac pacemaker in situ; Atherosclerosis of [place] coronary artery of [place] heart without angina pectoris Allergies Active Allergy Reactions Criticality Noted Date [...] on management encounter,Aortocoro nary bypass status,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),terminologist current use of anticoagulant therapy TAKE 1/2 [...] macular edema, left eye 12/28/2020 Atherosclerosis of [place] co ronary artery of [place] heart without angina pectoris 12/19/2019 Persistent atrial [...] Nummular eczema 09/06/2013 07/26/2021 [employer] Other*[id number] 02/03/2012 11/29/2016 Overview: Study Titile: [employer]omics Markers for Patients with Cardiovascular Disease Project # [id number] PI: Merary Rivera MD Please call [phone] with study related questions Irritable bowel syndrome 05/14/201001/2021 Type 2 diabetes mellitus wit h hemoglobin A1c goal of less than 7.0% 08/06/2009 01/08/2010 Overview: Modified per Diabetes protocol #14. ICD-10 update of inactive term ADVANCE DIRECTIVE INFORMATION 09/27/2007 07/26/2021 Overview: Yes-copy on file Carpal tunnel syndrome 04/14/200404/01 Atherosclerosis of [place] co ronary artery of [place] heart without angina pectoris 04/14/2004 Overview: Duplicate. [...] Sign Reading Time Taken Comments Blood Pressure 134/68 05/24/2024 9:03 AM EDT Pulse 72 05/24/2024 9:03 AM EDT Temperature 36.4 C (97.6 F) 05/24/2024 9:03 AM ED T Respiratory Rate 18 05/24/2024 9:03 AM EDT Oxygen Saturation 100% 05/24/2024 9:03 AM EDT Inhaled Oxygen Concentration - - Weight 69.4 kg (152 lb 14.4 oz) 05/24/2024 9:03 AM EDT Height - - Body Mass Index 29.86 05/08/2024 10:32 AM EDT documented in this encounter Patient Instructions * Patient Instructions* Lorenza Fonseca LPN - 05/24/2024 9:06 AM EDT Osteoporosis: Screening for Bone Loss The strength of bones is measured by their density (thickness). High bone density means bones are less likely to fracture. If you are at risk for bone loss, your healthcare provider may refer you forbone density testing. Bone Density Testing Bone density testing is safe, quick, easy, and painless. Testing can detect osteoporosis before a fracture happens. It can also predict the risk of future fractures. And testing can measure the response to treatment. There are two types of tests that you may have: Peripheral tests are used for screening. They measure density in the finger, wrist, knee, keith, or heel. A common peripheral test is the quantitative ultrasound (QUS). Central tests are used for diagnosis. They measure density in the hip or spine. The main centraltest is the dual energy x-ray absorptiometry (DXA). The DXA is the standard bone density test. Who Should Be Tested? All postmenopausal women under age 65, with one or more risk factors in addition to menopause. All women age 65 and older. Postmenopausal women with fractures. Women who are thinking about treatment for osteoporosis. Women who have been on hormone therapy for a long time. Men or women with certain medical conditions or who are taking certain medications (such as glucocorticoids or prednisone) for a long period. Common Testing Sites Any bone can fracture, but with osteoporosis some bones fracture more easily. These include bones in the spine, wrist, shoulder, and hip. Thats why bone density testing may be done at one or more of these sites. Understanding Your Results The results of your test may seem confusing at first. Dont be afraid to ask your provider to explain. Your bone mineral density (BMD) describes the thickness of the bone that was scanned. Your healthcare provider will compare your BMD with the BMD of young, healthy bone. The result is called a T-score. Bones remodel at different rates. So, a healthy T-score in the wrist doesnt mean the spine is also healthy. Thats why more than one site may be scanned. [id number] [place] [address]. All rights reserved. This information is not intended as a substitute for professional medical care. Always follow your healthcare professional's instructions documented in this encounter Progress Notes * Pete Ambriz MD - 05/24/2024 9:09 AM EDT Subjective Tootie Almanza is a 84 year old female. Chief Complaint Patient presents with Follow Up Pt here for 1 month follow up Pt has a cough HPI: Here for one mo f/u Type 2 DM, uncontrolled, recent hba1c 8.3 which was better than her baseline, usually around 9 Will f/u hba1c today Insulin user , oral meds Poor diet , muscle mass loss with weakness, inactivity due to chronic pain Still no significant diet change yet - declined nutrition consult Glucose check morning usually Known DISH, lumbar DDD , general OA Will start PT on Monday Retinopathy , f/u with ophth (advised her to schedule ) , some more vision problem Hypertension , CAD, atherosclerosis , s/p CABG, HL, CKD, Afib, pacemaker , on coumadin, CHF Taking medication as prescribed, see med list. No medication side effects noted. Advised patient tokeep healthy life style, regular exercise with good diet, dana. low sodium diet. And also check BP at home too. Denies associated chest discomfort, chest heaviness, chest pressure, chest tightness, edema, palpitations and shortness of breath. Chronic sinus drainage, with cough - mild Lungs are clear Started singulair , flonase, netti pot PMH: Patient Active Problem List Diagnosis Aortocoronary bypass status NONTOX MULTINODUL GOITER senior living current use of anticoagulant therapy Vitamin D deficiency DYSLIPIDEMIA, GOAL LDL BELOW 70 Type 2 diabetes mellitus with hemoglobin A1c goal of 7.0%-8.0% ([facility]) Chronic diarrhea Cardiac pacemaker in situ Pulmonary hypertension ([facility]) DISH (diffuse idiopathic skeletal hyperostosis) Type 2 diabetes mellitus with diabetic neuropathy ([facility]) HTN, goal below 130/80 Persistent atrial fibrillation ([facility]) Atherosclerosis of [place] coronary artery of [place] heart without angina pectoris Age-related osteoporosis without current pathological fracture Type 2 diabetes mellitus with mild nonproliferative diabetic retinopathy without macular edema, left eye ([facility]) Chronic kidney disease, stage 3a ([facility]) 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 100 Tablet 3 metFORMIN HCl ER 500 MG Oral Tablet Extended Release 24 Hour (Glucophage XR) TAKE 2 TABLETS BY MOUTH TWICE DAILY WITH MEALS 360 Tablet 1 Metoprolol Tartrate 100 MG Oral Tablet (Lopressor) [...] 1 TABLE[facility] Tablet 3 Pantoprazole Sodium 40 MG Oral Tablet Delayed Release (Protonix) Take 1 Tablet by mouth in the morning. (Patient not taking: Reported on 05/24/2024) Current Facility-Administered Medications Medication Dose Route Frequency [...] performed by Trent Cesar MD at ENDOSCOPY [facility] CORONARY ANGIOGRAPHY W/LEFT HEART CATH 02/03/2012 CORONARY ANGIOGRAPHY W/LEFT HEART CATH performed by LAWRENCE GODINEZ at [facility]ARDIAC [facility]S [facility] EGD, FLEXIBLE, DIAGNOSTIC 02/17/2022 gastritis / INPT [facility] INCISION & DRAINAGE Right 08/31/2022 shoulder abscess drained in office by Dr Channing Cedeno INJECT DX/THER SUBSTANCE INTERLAMINAR LUMBAR/SACRAL W IMAGE GUIDE 01/03/2022 INJECTION SPINE LUMBAR OR SACRAL performed by Abelardo Valdes, at OR [facility] INSERT/REPLACE PACEMAKER,ATRIAL/VENTRICULAR 10/03/2007 dual pacer medtronic [id number] MISCELLANEOUS ORDER (HS ONLY) 3 X D&Cs, 1963, 1971 glenis NUC MED-BILIARY CCK STIMULATION 05/07/2010 ejection fraction 81% REMOVAL OF RUPTURED APPENDIX 01/1993 Appendectomy, Rupt Appendx+Abscess SACROILIAC JOINT INJECT W/GUIDANCE 11/11/2021 INJECTION SACROILIAC JOINT performed by Abelardo Valdes DO at OR [facility] SHOULDER SUBQ TUMOR REMOVAL, UNDER 3 CM Right 10/04/2022 EXCISION SOFT TISSUE TUMOR SHOULDER SUBCUTANEOUS performed by Channing Cedeno MD at OR [facility] SURGICAL PROCEDURE ONLY Right 10/04/2022 Excision of [...] Stability Do you currently live in a halfway or have no steady place to sleep [...] chills, diaphoresis, fever and unexpected weight change. HENT: Positive for congestion and postnasal drip. Eyes: Positive for visual disturbance. Respiratory: Positive for cough (at night). Negative for chest tightness, shortness of breath and wheezing. Cardiovascular: Negative for chest pain, palpitations and leg swelling. Gastrointestinal: Negative for abdominal distention, abdominal pain, nausea and vomiting. Musculoskeletal: Positive for arthralgias and back pain. Allergic/Immunologic: Positive for environmental allergies. Neurological: Positive for numbness. Negative for dizziness, weakness and light-headedness. Psychiatric/Behavioral: Positive for sleep disturbance. Negative for agitation and behavioral problems. Objective BP 134/68 | Pulse 72 | Temp 36.4 C (97.6 F) (Tympanic) | Resp 18 | Wt 69.4 kg (152 lb 14.4 oz) | SpO2 100% | BMI 29.86 kg/m | BSA 1.71 m Physical Exam Constitutional: General: She is not in acute distress. Appearance: Normal appearance. She is not ill-appearing, toxic-appearing or diaphoretic. HENT: Head: Normocephalic and atraumatic. Nose: Nose normal. Eyes: Extraocular Movements: Extraocular movements intact. Cardiovascular: Rate and Rhythm: Normal rate. Rhythm irregular. Pulses: Normal pulses. Heart sounds: No murmur heard. Comments: Pacemaker Pulmonary: Effort: Pulmonary effort [...] cranial nerve deficit. Psychiatric: Behavior: Behavior normal. 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, with long-term current use of insulin (HCC) senior living current use of anticoagulant therapy Hypertensive heart and kidney disease with chronic diastolic congestive heart failure and stage 3a chronic kidney disease (HCC) - COMPREHENSIVE METABOLIC PANEL; Future; Expected date: 05/24/2024 Type 2 diabetes mellitus with peripheral artery disease (HCC) Type 2 diabetes mellitus with diabetic neuropathy, without long-term current use of insulin (HCC) Persistent atrial fibrillation (HCC) - COMPREHENSIVE METABOLIC PANEL; Future; Expected date: 05/24/2024 HTN, goal below 130/80 - COMPREHENSIVE METABOLIC PANEL; Future; Expected date: 05/24/2024 Chronic kidney disease, stage 3a (HCC) Cardiac pacemaker in situ Atherosclerosis of [place] coronary artery of [place] heart without angina pectoris Follow Up: Return in about 4 months (around 09/23/2024) for Clinic Visit. | For: Clinic Visit | Check-out note: 4 mo Labs today Dexa Cont meds Diet change PT Oph Cardio Dexa Pete Ambriz MD * Lorenza Fonseca LPN - 05/24/2024 9:06 AM EDT Dexa scan ordered today. Provider aware. Lorenza Fonseca LPN Urine albumin/creatinine ratio ordered today. Provider aware. documented in this encounter Nursing Notes * Lorenza Fonseca LPN - 05/24/2024 8:54 AM EDT Chief Complaint Patient presents with Follow Up Pt here for 1 month follow up documented in this encounter Plan of Treatment Upcoming Encounters Date Type Department Care Team (Late st Contact Info) Description 06/12/2024 11:10 AM EDT Anticoagulation Pharmacy, [place] [address], [place] [address] [facility] [address] [place] [address] 06/12/2024 11:20 AM EDT Office [facility] Pharm[facility] [place] [address] [facility] [address] [facility] [address], [place] [address] 06/14/2024 9:00 AM EDT Cardiac Studies Cardiology, [facility] [address] [facility] [place] [address] [facility] [address] [place] [address] 09/02/2024 10:00 AM EST Office Visit Cardiology, [facility] [address] [place] [address] [place] Momin PA-C [address] [facility] [address] 09/23/2024 9:00 AM EST Office Visit [facility], [place] [address] [address] Pete Ambriz MD [address] [facility] [address] 05/14/2025 10:00 AM EDT Nurse Only Ancillary Department, [place] [address] [place] [address] [place], Nurse [facility] [address] [place] [address] Pending Results Name Type Priority Associated Diagnoses Date /Time ALBUMIN / CREATININE RATIO, URINE Lab Routine Type 2 diabetes mellitus with stage 3a chronic kidney disease, without long-term current use of insulin (HCC) 05/24/2024 9:46 AM EDT COMPREHENSIVE METABOLIC PANEL Lab Routine Type 2 diabetes mellitus with stage 3a chronic kidney disease, without long-term current use of insulin ([facility]) Hypertensive heart and kidney disease with chronic diastolic congestive heart failure and stage 3a chronic kidney disease (HCC) Persistent atrial fibrillation (HCC) HTN, goal below 130/80 05/24/2024 9:45 AM EDT Scheduled Orders Name Type Priority Associated Diagnoses Orde r Schedule DEXA SCAN/BONE MINERAL AXIAL Medical Imaging Routine Age-related osteoporosis without current pathological fracture Expected: 05/24/2024 (Approximate), Expires: 06/24/2025 ALBUMIN / CREATININE RATIO, URINE Lab Routine Type 2 diabetes mellitus with stage 3a chronic kidney disease, without long-term current use of insulin (HCC) Expected: 05/24/2024, Expires: 05/24/2025 COMPREHENSIVE METABOLIC PANEL Lab Routine Type 2 diabetes mellitus with stage 3a chronic kidney disease, without long-term current use of insulin (HCC) Hypertensive heart and kidney disease with chronic diastolic congestive heart failure and stage 3a chronic kidney disease (HCC) Persistent atrial fibrillation (HCC) HTN, goal below 130/80 Expected: 05/24/2024 (Approximate), Expires: 05/24/2025 Scheduled Procedures Name Priority Associated Diagnoses Date/Ti me COLONOSCOPY FLEXIBLE PROXIMA L DIAGNOSTIC Recall History of colonic polyps Health Maintenance Due Date Last Done Comments Colonoscopy 02/07/2022 02/07/2019, 01/21, 03/18/2010 *BISPHONATE OR OTHER ACCEPTABLE MEDICATION NEEDED FOR OSTEOPOROSIS (REFER TO SMARTSET #1146) 12/12/2022 COVID-19 Vaccine () 06/23/2023 06/22/2021, 05/08/2021 DXA Scan 03/01/2024 03/01/2022, 02/20, 12/10/2018, Additional history exists Influenza Vaccine (FLU shot) (#1) 2024 08/30/2023, 09/23/2022, 10/01/2019, Additional history exists GFR 06/28/2024 12/27/2023, 12/2022, 02/01/2023, Additional history exists Albumin/Creatinine Ratio 07/25/2024 023, 02/01/2023, 06/22/2020, Additional history exists HbA1c 07/30/2024 01/29/2024, 12/2022, 02/01/2023, Additional history exists Diabetic Eye Exam 12/01/2024 12/01/2023, , 11/15/2022, Additional history exists B-12 01/28/2025 01/29/2024, 01/21, 07/29/2022, Additional history exists CKD HGB USE SMARTSET 71536 01/28/202501/28, 01/29/2024, 12/27/2023, Additional history exists CKD PHOS USE SMARTSET 85960 01/28/2025 040 05/2024, 02/01/2023, 07/29/2022, Additional history exists Diabetic Foot Exam 04/23/2025 04/23/2024, 1 , 07/26/2021, Additional history exists Depression Screening 05/08/2025 05/08/2024 VITAMIN D LEVEL ONCE IN A LIFETIME-USE SMARTSET# [id number] Completed 08/28/2008, 04/07/2008, 12/04/2007 Pneumococcal Vaccine: 65+ [...] long-term current use of insulin (HCC)- Primary Age-related osteoporosis without current pathological fracture Senile osteoporosis 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 edema, with long-term current use of insulin (HCC) senior living current use of anticoagulant therapy Hypertensive heart and kidney disease with chronic diastolic congestive heart failure and stage 3a chronic kidney disease (HCC) Type 2 diabetes mellitus with peripheral artery disease (HCC) Type II or unspecified type diabetes mellitus with peripheral circulatory disorders, not stated as uncontrolled Type 2 diabetes mellitus with diabetic neuropathy, without long-term current use of insulin (HCC) Persistent atrial fibrillation (HCC) Atrial fibrillation HTN, goal below 130/80 Unspecified essential hypertension Chronic kidney disease, stage 3a (HCC) Cardiac pacemaker in situ Atherosclerosis of [place] coronary artery of [place] heart without angina pectoris documented in this encounter Advance Directives * No Code Status (Latest Code Status on File) Date Activated Date Inactivated Comments 01/11/2005 2:56 PM 01/11/2005 3:56 PM Care Teams Director [employer] Engineering Relationship Specialty Start Date End Date Pete Ambriz MD [address] [place] [address] PCP - General Internal Medicine 05/08/24 documented as of this encounter"
--- OUTSIDE RECORDS SUMMARY | 2024-10-24 23:48 | External Medical Summary | Summary of Care ---
Author Name Unknown Organization [facility] Address [address] [place] [address] Phone [phone] Care Team Providers Care District Administrator Name Role Phone Pete Ambriz MD Primary Care Provider Encounter Details Date Type Department Care Team (Late st Contact Info) Description 05/29/2024 Telephone [facility] [address] [place] [address] Pete Ambriz MD [address] [place] [address] Allergies Active Allergy Reactions Criticality Noted Date Comments Cephalexin Unknown 09/12/2002 Lisinopril 12/07/2018 Cough Oxycodone 12/04/2003 nausea, stomach pains Tetanus Toxoid 01/28/2009 Local reaction, fever documented as of this encounter (statuses as of 05/29/2024) Medications Medication Sig Dispensed Refills Start Date [...] as of this encounter (statuses as of 05/29/2024) Active Problems Problem Noted Date Diagnosed Date [...] macular edema, left eye 12/28/2020 Atherosclerosis of [place] co ronary artery of [place] heart without angina pectoris 12/19/2019 Persistent [...] as of this encounter (statuses as of 05/29/2024) Resolved Problems Problem Noted Date Diagnosed Date [...] Nummular eczema 09/06/2013 07/26/2021 [employer] Other*[id number] 02/03/2012 11/29/2016 Overview: Study Titile: [employer] Markers for Patients with Cardiovascular Disease Project # [id number] PI: Merary Rivera MD Please call [phone] with study related questions Irritable bowel syndrome 05/14/201001/2021 Type 2 diabetes mellitus wit h hemoglobin A1c goal of less than 7.0% 08/06/2009 01/08/2010 Overview: Modified per Diabetes protocol #14. ICD-10 update of inactive term ADVANCE DIRECTIVE INFORMATION 09/27/2007 07/26/2021 Overview: Yes-copy on file Carpal tunnel syndrome 04/14/200404/01 Atherosclerosis of [place] co ronary artery of [place] heart without angina pectoris 04/14/2004 Overview: [...] as of this encounter (statuses as of 05/29/2024) Immunizations Name Administration Dates Next Due COVID-19 [...] encounter Miscellaneous Notes * Telephone Encounter - Krystal Carrasquillo OSA - 05/29/2024 2:41 PM EDT 05/29/24 Rec ltr from pts regarding last appt with provider. Placed ltr in provider's mail bin today. documented in this encounter Plan of Treatment Upcoming Encounters Date Type Department Care Team (Late st Contact Info) Description 06/12/2024 11:10 AM EDT Anticoagulation Pharmacy, [place] [address] [facility], [place] [address] [facility] [address] [facility], [place] [address] 06/12/2024 11:20 AM EDT Office Visit Pharmacy, [place] [address] [facility], [place] [address] [facility] [address] [facility], [place] [address] 06/14/2024 9:00 AM EDT Cardiac Studies [facility]iology, [facility] [address] [facility] [place] [address] [address] [facility] [address] [facility] [address] 09/02/2024 10:00 AM EST Office Visit Cardiology, [facility] [address] [facility] [place] [address] [place] [facility]omin [facility]-C [address] [facility] [place] [address] 09/23/2024 9:00 AM EST Office Visit Family Practice, [place] [address] [facility], [place] [address] Pete Ambriz MD [address] [facility] [address] 05/14/2025 10:00 AM EDT Nurse Only Ancillary Department, [place] [address] [facility] [address] [place] [facility] [address] [place] [address] Scheduled Procedures Name Priority Associated Diagnoses Date/Ti [...] Additional history exists CKD HGB USE SMARTSET 42098 01/28/202501/28, 01/29/2024, 12/27/2023, Additional history exists CKD PHOS USE SMARTSET 12968 01/28/2025 04/0 05/2024, 02/01/2023, 07/29/2022, Additional history exists Diabetic Foot Exam 04/23/2025 04/23/2024, 1 , 07/26/2021, Additional history exists Adult Wellness Visit 05/08/2025 05/08/2024, 05/05/20 23 Depression Screening 05/08/2025 05/08/2024 Albumin/Creatinine Ratio 05/24/2025 024, 07/25/2023, 02/01/2023, Additional history exists VITAMIN D LEVEL ONCE IN A LIFETIME-USE SMARTSET# [id number] Completed 08/28/2008, 04/07/2008, 12/04/2007 Pneumococcal Vaccine: 65+ [...] 2:56 PM 01/11/2005 3:56 PM Care Teams District Administrator Relationship Specialty Start Date End Date Ptee Ambriz MD [address] [place] [facility] [place] [address] PCP - General Internal Medicine 05/08/24 documented as of this encounter
--- OUTSIDE RECORDS SUMMARY | 2024-10-24 23:48 | External Medical Summary ---
Author Name Unknown Address Unknown Organization K01:[facility] [place] - [address] [place] [address] Laboratory Report Ordering Provider Test Date Status GLORIA STEINBERG 05/24/2024 09:45:17 Final Observation Date Value Abnormality Reference (Units ) Status MYCODE SPECIMEN-SST 05/24/2024 09:45:17 Freezing of extracted DNA, whole blood and/or serum. Final Performing Location [facility] [place] - [address] [place] [address]
--- OUTSIDE RECORDS SUMMARY | 2024-10-24 23:48 | External Medical Summary | Summary of Care ---
Author Name Unknown Organization [facility] Address [address] [facility] [place] [address] Phone [phone] Care Team Providers Care Web Site Project Manager Name Role Phone Pete Ambriz MD Primary Care Provider [phone] Reason for Visit * Reason Comments Cardiac Rehab Encounter Details Date Type Department Care Team (Late st Contact Info) Description 05/29/2024 8:00 AM EDT Telemedicine Cardiac Rehab Advanced, Virtual [address] [place] [address] [place] [address] Advanced, Virtual Cardiac Rehab [address] [place] [address] [place] [address] Aortocoronary bypass status* Allergies Active Allergy Reactions [...] on management encounter,Aortocoro nary bypass status,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 Vitamin D deficiency 12/12/2007 alf current use of anticoagulant therapy 0 05/27/2005 [...] Nummular eczema 09/06/2013 07/26/2021 [employer] Other*[id number] 02/03/2012 11/29/2016 Overview: Study Titile: [employer] Markers for Patients with Cardiovascular Disease Project # [id number] PI: Merary Rivera MD Please call [phone] with study related questions Irritable bowel syndrome 05/14/201001/2021 Type 2 diabetes mellitus wit h hemoglobin A1c goal of less than 7.0% 08/06/2009 01/08/2010 Overview: Modified per Diabetes protocol #14. ICD-10 update of inactive term ADVANCE DIRECTIVE INFORMATION 09/27/2007 07/26/2021 Overview: Yes-copy on file Carpal tunnel syndrome 04/14/200404/01 Atherosclerosis of [place] co ronary artery of [place] heart without angina pectoris 04/14/2004 Overview: Duplicate. [...] Hali De La Torre EPC - 06/04/2024 10:18 PM EDT Session Encounter: Patient is participating in [facility] Intensive [facility] Re[facility] Program in partnership with [employer] is a specialized [employer] that specializes in providing virtual cardiac rehab services. Session #5 completed. Please refer to scan document for session details. Session type: Exercise Individual Session duration: 35 minutes documented in this encounter Plan of Treatment Upcoming Encounters Date Type Department Care Team (Late st Contact Info) Description 06/12/2024 11:10 AM EDT Anticoagulation Pharmacy, [place] [address] [address] [facility], [place] [address] [facility] [address] [facility], [place] [address] 06/12/2024 11:20 AM EDT Office Visit Pharmacy, [place] [address] [facility] [address] [facility] [address] [facility] [address] 06/14/2024 9:00 AM EDT Cardiac Studies Cardiology, [facility] [address] [place] [address] Billy Barber [facility] [place] [address] 09/02/2024 10:00 AM EST Office Visit Cardiology, [facility] [place] [address] [place] Momin, PA-C [address] [facility] [place] [address] 09/23/2024 9:00 AM EST Office Visit Family Practice, [place] [address] [facility] [address] Pete Ambriz MD [address] [facility] [address] 05/14/2025 10:00 AM EDT Nurse Only Ancillary Department, [place] [address] [place] [address] [place], Nurse [facility] [address] [facility] [address] Scheduled Procedures Name Priority Associated Diagnoses Date/Ti [...] Additional history exists CKD HGB USE SMARTSET 77839 01/28/202501/28, 01/29/2024, 12/27/2023, Additional history exists CKD PHOS USE SMARTSET 80187 01/28/2025 04/0 05/2024, 02/01/2023, 07/29/2022, Additional history exists Diabetic Foot Exam 04/23/2025 04/23/2024, 1 , 07/26/2021, Additional history exists Adult Wellness Visit 05/08/2025 05/08/2024, 05/05/20 23 Depression Screening 05/08/2025 05/08/2024 Albumin/Creatinine Ratio 05/24/2025 024, 07/25/2023, 02/01/2023, Additional history exists VITAMIN D LEVEL ONCE IN A LIFETIME-USE SMARTSET# 58463 Completed 08/28/2008, 04/07/2008, 12/04/2007 Pneumococcal Vaccine: 65+ [...] 2:56 PM 01/11/2005 3:56 PM Care Teams Web Site Project Manager Relationship Specialty Start Date End Date Pete Ambriz MD [address] [place] [facility] [place] [address] PCP - General Internal Medicine 05/08/24 documented as of this encounter
--- OUTSIDE RECORDS SUMMARY | 2024-10-24 23:49 | External Medical Summary | Summary of Care ---
Author Name Unknown Organization [facility] Address [address] [facility] [address] Phone [phone] Care Team Providers Care Hull Builder Name Role Phone Laverne Becker DO Primary Care Provider [phone] Reason for Visit * Reason Comments Dosage Adjustment In Person (Anticoag Cl inic) Encounter Details Date Type Department Care Team (Latest Contact Info) Description 05/08/2024 9:50 AM EDT Anticoagulation Pharmacy, [address] [address] [facility] [address] [place] [address] Anticoagulation management encounter*; Persistent atrial fibrillation (HCC) Allergies Active Allergy Reactions Criticality Noted Date Comments Cephalexin Unknown 09/12/2002 Lisinopril 12/07/2018 Cough Oxycodone 12/04/2003 nausea, stomach pains Tetanus Toxoid 01/28/2009 Local reaction, fever documented as of this encounter (statuses as of 05/08/2024) Medications Medication Sig Dispensed Refills Start Date [...] mellitus with hemoglobin A1c goal of 7.0%-8.0% ([facility]) Inject 30 Units under the skin daily. [...] as of this encounter (statuses as of 05/08/2024) Active Problems Problem Noted Date Diagnosed Date [...] with acute decompensat ion 12/19/2019 Atherosclerosis of [place] co ronary artery of [place] heart without angina pectoris 12/19/2019 Persistent [...] as of this encounter (statuses as of 05/08/2024) Resolved Problems Problem Noted Date Diagnosed Date [...] Nummular eczema 09/06/2013 07/26/2021 [employer] Other*[id number] 02/03/2012 11/29/2016 Overview: Study Titile: [employer] Markers for Patients with Cardiovascular Disease Project # [id number] PI: Merary Rivera MD Please call [phone] with study related questions Irritable bowel syndrome 05/14/201001/2021 Type 2 diabetes mellitus wit h hemoglobin A1c goal of less than 7.0% 08/06/2009 01/08/2010 Overview: Modified per Diabetes protocol #14. ICD-10 update of inactive term ADVANCE DIRECTIVE INFORMATION 09/27/2007 07/26/2021 Overview: Yes-copy on file Carpal tunnel syndrome 04/14/200404/01 Atherosclerosis of [place] co ronary artery of [place] heart without angina pectoris 04/14/2004 Overview: [...] as of this encounter (statuses as of 05/08/2024) Immunizations Name Administration Dates Next Due COVID-19 [...] encounter Progress Notes * Shania Novak, [facility] - 05/08/2024 9:50 AM EDT Medication Therapy Disease Management - Anticoagulation Patient: Tootie Mike Almanza | : 1940 Subjective Patient-Reported Symptoms: Patient Findings Negatives: Signs/symptoms of thrombosis, Signs/symptoms of bleeding, Change in health, Change in alcohol use, Change in activity, Upcoming invasive procedure, Missed doses, Extra doses, Change in medications, Change in diet/appetite, Bruising Objective Current Warfarin Dose As of 05/08/2024 Warfarin maintenance plan: 2 mg (2 mg x 1) every Mon; 1 mg (2 mg x 0.5) all other days INR Result As of 05/08/2024 INR goal: 2.0-3.0 INR used for dosin.8 (05/08/2024) Assessment & Plan Warfarin Plan As of 05/08/2024 Full warfarin instructions: 2 mg every Mon; 1 mg all other days No change documented: Shania Novak RPh Next INR check: 06/14/2024 Repeat PT/INR in 6 week(s) Weekly dose: not changed Additional Dosing Information: Shania Novak RPh Clinical Pharmacist 05/08/2024, 9:50 AM documented in this encounter Plan of Treatment Upcoming Encounters Date Type Department Care Team (Late st Contact Info) Description 05/24/2024 9:00 AM EDT [address] [address] Pete Ambriz MD [address] [facility] [address] 06/12/2024 11:10 AM EDT Anticoagulation [address]acy, [address] [address] [facility] [address] [facility] [address] 06/12/2024 11:20 AM EDT Office Visit Pharmacy, [place] [address] [address] [facility] [address] [facility] [address] [facility] [address] 06/14/2024 9:00 AM EDT Cardiac Studies Cardiology, [facility] [address] [facility] [place] [address] [facility] [address] [place] [address] 09/02/2024 10:00 AM EST Office Visit Cardiology, [facility] [address] [place] [address] [place] Momin PA-C [address] [place] [address] Scheduled Orders Name Type Priority Associated Diagnoses Orde r Schedule PT INR Lab Routine Persistent atrial fibrillation (HCC) Anticoagulation management encounter 26 Occurrences starting 05/08/2024 until 05/08/2025 INR FINGERSTICK, POINT OF CARE Point of Care Testing - Unsolicited Results STAT Persistent atrial fibrillation (HCC) Anticoagulation management encounter Every 2 Weeks for 26 Occurrences starting 05/08/2024 until 05/08/2025, 1 completed Scheduled Procedures Name Priority Associated Diagnoses Date/Ti me COLONOSCOPY FLEXIBLE PROXIMA L DIAGNOSTIC Recall History of colonic polyps Health Maintenance Due Date Last Done Comments Colonoscopy 02/07/2022 02/07/2019, 01/21, 03/18/2010 *BISPHONATE OR OTHER ACCEPTABLE MEDICATION NEEDED FOR OSTEOPOROSIS (REFER TO SMARTSET #1146) 12/12/2022 COVID-19 Vaccine ( season) 2023 06/22/2021, 05/08/2021 DXA Scan 03/01/2024 03/01/2022, 02/20, 12/10/2018, Additional history exists Depression Screening 05/05/2024 05/05/2023 Influenza Vaccine (FLU shot) (#1) 2024 08/30/2023, 09/23/2022, 10/01/2019, Additional history exists GFR 06/28/2024 12/27/2023, 12/2022, 02/01/2023, Additional history exists Albumin/Creatinine Ratio 07/25/2024 023, 02/01/2023, 06/22/2020, Additional history exists HbA1c 07/30/2024 01/29/2024, 12/2022, 02/01/2023, Additional history exists Diabetic Eye Exam 12/01/2024 12/01/2023, , 11/15/2022, Additional history exists B-12 01/28/2025 01/29/2024, 01/21, 07/29/2022, Additional history exists CKD HGB USE SMARTSET 96591 01/28/202501/28, 01/29/2024, 12/27/2023, Additional history exists CKD PHOS USE SMARTSET 27535 01/28/202505/2024, 02/01/2023, 07/29/2022, Additional history exists Diabetic Foot Exam 04/23/2025 04/23/2024, 1 , 07/26/2021, Additional history exists VITAMIN D LEVEL ONCE IN A LIFETIME-USE SMARTSET# 24721 Completed 08/28/2008, 04/07/2008, 12/04/2007 Pneumococcal Vaccine: 65+ [...] Comments INR FINGERSTICK, POINT OF CARE STAT 05/08/2024 9:54 AM EDT Persistent atrial fibrillation (HCC) Anticoagulation management encounter documented in this encounter Results * INR FINGERSTICK, POINT OF CARE (05/08/2024 9:54 AM EDT) Fingerstick INR 2.8 INR 9:55 AM EDT [facility] Blood 05/08/2024 9:54 AM EDT 05/08/2024 9:55 AM EDT Narrative [facility] 56-01 - 05/08/2024 9:55 AM EDT Therapeutic ranges for non-operative patients: Prophylaxsis/treatment of DVT: (Range:2.0-3.0) Treatment of pulmonary embolism:(Range:2.0-3.0) Prevention of systemic embolism from: -tissue heart valves -acute myocardial infarction -valvular heart disease -atrial fibrillation (Range: 2.0-3.0) Mechanical prosthetic valves: (Range: 2.5-3.5) Shania Novak [facility] POINT OF CARE TEST DOCKED DEVICE UNSOLICITED RESULTS Performing Organization Address City/State/[facility] Co de Phone Number [facility] [address] [facility] [place] [phone] documented in this encounter Visit Diagnoses Diagnosis Anticoagulation management encounter- Primary Encounter for therapeutic drug monitoring Persistent atrial fibrillation (HCC) Atrial fibrillation documented in this encounter Advance Directives * No Code Status (Latest Code Status on File) Date Activated Date Inactivated Comments 01/11/2005 2:56 PM 01/11/2005 3:56 PM Care Teams Hull Builder Relationship Specialty Start Date End Date Laverne Becker DO [address] [address] PCP - General Family Medicine 06/29/21 documented as of this encounter"
--- OUTSIDE RECORDS SUMMARY | 2024-10-24 23:49 | External Medical Summary | Summary of Care ---
Author Name Unknown Organization [facility] Address [address] [facility] [place] [address] Phone [phone] Care Team Providers Care Pastry Finisher Name Role Phone Pete Ambriz MD Primary Care Provider [phone] Reason for Referral * Evaluate & Treat - Unlimited Visits (Within 10 days (routine)) - Authorized Specialty Diagnoses / Procedures Referred By Christiano brown Referred To Contact CARDIAC REHAB / Cardiology Diagnoses Aortocoronary bypass status Mathieu Wooten DO [address] [place] [address] Referral ID Status Reason Start Date Expiration Date Visits Requested Visits Authorized [id number] Authorized Specialty Services Required 05/10/[phone] Question Answer Referral Priority Within 10 days (routine) Where should this appointment be scheduled? [facility] Cardiac Rehabilitation Modality Virtual Based Cardiac Rehab Only Encounter Details Date Type Department Care Team (Late st Contact Info) Description 05/10/2024 Orders Only Cardiac Rehab Advanced, Virtual [address] [place] [address] [place] [address] Mathieu Wooten DO [address] [facility] [place] [address] Aortocoronary bypass status* Allergies Active Allergy Reactions Criticality Noted Date Comments Cephalexin Unknown 09/12/2002 Lisinopril 12/07/2018 Cough Oxycodone 12/04/2003 nausea, stomach pains Tetanus Toxoid 01/28/2009 Local reaction, fever documented as of this encounter (statuses as of 05/10/2024) Medications Medication Sig Dispensed Refills Start Date End Date Status Vitamin D 50 MCG (1999) Oral CapsuleIndications: Supplement Take 5,000 Units by mouth at bedtime. Active B-12 500 MCG Oral TabletIndications:S upplement Take by mouth 1 Tablet daily . 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 TAKE 1 TAB ONCE DAILY ALL OTHER DAYS OF THE WEEK 135 Tablet 3 3 Active Insulin Pen Needle 29G X 12MM (B/D Ultrafine)Indicatio ns:Type 2 diabetes mellitus with hemoglobin A1c goal of 7.0%-8.0% ([facility]) Use to inject basaglar once daily. 100 Each 3 3 Active Potassium Gluconate 595 (99 K) MG Oral Tablet Take by mouth daily. Acti ve Insulin Glargine Solostar 100 UNIT/ML Subcutaneous Solution Pen-injector (Basaglar KwikPen)Indications :Type 2 diabetes mellitus with hemoglobin A1c goal of 7.0%-8.0% ([facility]) Inject 30 Units under the skin [...] as of this encounter (statuses as of 05/10/2024) Active Problems Problem Noted Date Diagnosed Date [...] with acute decompensat ion 12/19/2019 Atherosclerosis of [place] co ronary artery of [place] heart without angina pectoris 12/19/2019 Persistent atrial [...] as of this encounter (statuses as of 05/10/2024) Resolved Problems Problem Noted Date Diagnosed Date [...] Nummular eczema 09/06/2013 07/26/2021 [employer] Other*[id number] 02/03/2012 11/29/2016 Overview: Study Titile: [employer] Markers for Patients with Cardiovascular Disease Project # [id number] PI: Merary Rivera MD Please call [phone] with study related questions Irritable bowel syndrome 05/14/201001/2021 Type 2 diabetes mellitus wit h hemoglobin A1c goal of less than 7.0% 08/06/2009 01/08/2010 Overview: Modified per Diabetes protocol #14. ICD-10 update of inactive term ADVANCE DIRECTIVE INFORMATION 09/27/2007 07/26/2021 Overview: Yes-copy on file Carpal tunnel syndrome 04/14/200404/01 Atherosclerosis of [place] co ronary artery of [place] heart without angina pectoris 04/14/2004 Overview: Duplicate. [...] as of this encounter (statuses as of 05/10/2024) Immunizations Name Administration Dates Next Due COVID-19 mRNA, LNP-s, No Pre serve, 2-Dose Series ([employer]) 06/22/2021,05/08/2021 Pneumococcal Conjugate Vacc, 13 Valent (Prevnar) [...] as of this encounter Progress Notes * My [facility]ger EPC - 05/10/2024 5:45 PM EDT Images from the original note were not included. 05/10/2024 Good Afternoon, We would like to let you know that your patient has chosen to participate in [facility]'s Virtual Cardiac Rehab program in partnership with [employer]. [employer] is a specialized company that specializes in providing cardiac rehab service. Our program is supervised by [facility] clinicians and includes all the gema of our in-person rehab programs, such as exercise training and heart healthy education. During the 12-week program, patients meet with an buggyman over video to work on their recovery 2-3 times per week to help support them and strengthen their heart. To begin the process of enrollment, Dr. Mathieu Wooten, [facility] Prize Fighter has placed an outpatient cardiac rehabilitation referral for your patient to participate in our virtual program with [employer]. If you have any questions or concerns about this program, please contact Brandi [facility] EP-C Thank you, Cardiac Rehabilitation Staff [facility] [address] [place] [address] [email or web address] documented in this encounter Plan of Treatment Upcoming Encounters Date Type Department Care Team (Late st Contact Info) Description 05/24/2024 9:00 AM EDT Office Visit [facility] [address] [place] [phone] Pete Ambriz MD [address] [place] [address] 06/12/2024 11:10 AM EDT Anticoagulation Pharmacy, [place] [address] [address] [facility] [address] [facility] [address] 06/12/2024 11:20 AM EDT Office Visit Pharmacy, [place] [address] [address] [facility] [address] [facility] [address] [facility] [address] 06/14/2024 9:00 AM EDT Cardiac Studies Cardiology, [facility] [address] [facility] [place] [address] Billy Barber [facility] [address] [place] [address] 09/02/2024 10:00 AM EST Office Visit Cardiology, [facility] [address] [place] [facility] [place] [address] [place] Momin [place] [address] [facility] [place] [address] 05/14/2025 10:00 AM EDT Nurse Only Ancillary Department, [place] [address] [address] [facility] [address] [place], Nurse Annual Wellness [address] [facility] [place] [address] Scheduled Procedures Name Priority Associated Diagnoses Date/Ti me COLONOSCOPY FLEXIBLE PROXIMA L DIAGNOSTIC Recall History of colonic polyps Scheduled Referrals Name Type Priority Associated Diagnoses Orde r Schedule CARDIAC REHAB REFERRAL OP Referral Within 10 days (routine) Aortocoronary bypass status Ordered: 05/10/2024 Health Maintenance Due Date Last Done Comments [...] Additional history exists CKD HGB USE SMARTSET 98268 01/28/202501/28, 01/29/2024, 12/27/2023, Additional history exists CKD PHOS USE SMARTSET 19162 01/28/2025 040 05/2024, 02/01/2023, 07/29/2022, Additional history exists Diabetic Foot Exam 04/23/2025 04/23/2024, 1 , 07/26/2021, Additional history exists Depression Screening 05/08/2025 05/08/2024 VITAMIN D LEVEL ONCE IN A LIFETIME-USE SMARTSET# 27832 Completed 08/28/2008, 04/07/2008, 12/04/2007 Pneumococcal Vaccine: 65+ [...] 2:56 PM 01/11/2005 3:56 PM Care Teams Pastry Finisher Relationship Specialty Start Date End Date Pete Ambriz MD [address] [place] [address] PCP - General Internal Medicine 05/08/24 documented as of this encounter
--- OUTSIDE RECORDS SUMMARY | 2024-10-24 23:49 | External Medical Summary | Summary of Care ---
Author Name Unknown Organization [facility] Address [address] [place] [address] Phone [phone] Care Team Providers Care Hand Deicer Element Winder Name Role Phone Pete Ambriz MD Primary Care Provider [phone] Reason for Visit * Reason Comments Adult Annual Wellness Visit, Subsequent Visit Encounter Details Date Type Department Care Team (Late st Contact Info) Description 05/08/2024 10:00 AM EDT Nurse Only Ancillary Department, [place] [address] [place] [address] [place], Nurse Annual Wellness [address] [place] [address] Adult Annual Wellness Visit, Subsequent Visit Allergies Active Allergy Reactions Criticality Noted Date [...] hemoglobin A1c goal of 7.0%-8.0% ([facility]) Use to inject basaglar once daily. 100 Each 3 3 Active Potassium Gluconate 595 (99 K) MG Oral Tablet Take by mouth daily. Acti ve Insulin Glargine Solostar 100 UNIT/ML Subcutaneous Solution Pen-injector (Basaglar KwikPen)Indications :Type 2 diabetes mellitus with hemoglobin A1c goal of 7.0%-8.0% ([facility]) Inject 30 Units under the [...] hemoglobin A1c goal of 7.0%-8.0% ([facility]) Take 1 Tablet by mouth in the morning. 100 Tablet 3 4 Active metFORMIN HCl ER 500 MG Oral Tablet Extended Release 24 Hour (Glucophage XR)Indications:Type 2 diabetes mellitus with hemoglobin A1c goal of 7.0%-8.0% ([facility]) TAKE 2 TABLETS BY MOUTH TWICE DAILY [...] with acute decompensat ion 12/19/2019 Atherosclerosis of [place] co ronary artery of [place] heart without angina pectoris 12/19/2019 Persistent atrial [...] Nummular eczema 09/06/2013 07/26/2021 [employer] Other*[id number] 02/03/2012 11/29/2016 Overview: Study Titile: Genomics Markers for Patients with Cardiovascular Disease Project # [id number] PI: Merary Rivera MD Please call [phone] with study related questions Irritable bowel syndrome 05/14/201001/2021 Type 2 diabetes mellitus wit h hemoglobin A1c goal of less than 7.0% 08/06/2009 01/08/2010 Overview: Modified per Diabetes protocol #14. ICD-10 update of inactive term ADVANCE DIRECTIVE INFORMATION 09/27/2007 07/26/2021 Overview: Yes-copy on file Carpal tunnel syndrome 04/14/200404/01 Atherosclerosis of [place] co ronary artery of [place] heart without angina pectoris 04/14/2004 Overview: Duplicate. [...] Sign Reading Time Taken Comments Blood Pressure 140/62 05/08/2024 10:32 AM EDT Pulse 71 05/08/2024 10:32 AM EDT Temperature 36.9 C (98.4 F) 05/08/2024 10:32 AM E DT Respiratory Rate - - Oxygen Saturation 97% 05/08/2024 10:32 AM EDT Inhaled Oxygen Concentration - - Weight 70.6 kg (155 lb 9.6 oz) 05/08/2024 10:32 AM EDT Height 152.4 cm (5') 05/08/2024 10:32 AM EDT Body Mass Index 30.39 05/08/2024 10:32 AM EDT documented in this encounter Patient Instructions * Patient Instructions* Glenis Saha RN - 05/08/2024 10:59 AM EDT Patient Instructions - Fall Prevention (This education is for all patients over 65 regardless of symptoms) Remember to take your current medications as prescribed. In order to prevent falls, you are encouraged to: Exercise Utilize assistive/adaptive devices Avoid multifocal lenses when walking Avoid hazards in home Maintain a regular toileting schedule Any questions please contact our office. Preventing Falls in the Home (This education is for all patients over 65 regardless of symptoms) As you get older, falls are more likely. Thats because your reaction time slows. Your muscles and joints may also get stiffer, making them less flexible. Illness, medications, and vision changes can also affect your balance. A fall could leave you unable to live on your own. To make your home safer, follow these tips: Floors Put nonskid pads under area rugs Remove throw rugs Replace worn floor coverings Tack carpets firmly to each step on carpeted stairs. Put nonskid strips on the edges of uncarpeted stairs Keep floors and stairs free of clutter and cords Arrange furniture so there are clear pathways Clean up any spills right away Bathrooms Install grab bars in the tub or shower Apply nonskid strips or put a nonskid rubber mat in the tub or shower Sit on a bath chair to bathe Use bathmats with nonskid backing Lighting Keep a flashlight in each room Put a nightlight along the pathway between the bedroom and the bathroom Sylvester Patient Education Copyright 2009 - 2010 Sylvester except where otherwise noted Preventing Falls: Exercises to Improve Balance, Flexibility, Strength, and Staying Power (This education is for all patients over 65 regardless of symptoms) Certain types of exercises may help make you less likely to fall. Try the ones below. Or do other exercises that your healthcare provider suggests. Depending on your health, you may need to start slowly. Dont let that stop you. Even small amounts of exercise can help you. Be sure to talk to yourhealthcare provider before starting any exercise program. Improve Balance Many types of exercise can help improve balance. New chi and yoga are good examples. Heres another one to try. You can do it anytime and almost anywhere. Stand next to a counter or solid support. Push yourself up onto your tiptoes. Hold for 5 seconds. If you start to lose your balance, hold on to the counter. Rest and repeat 5 times. Work up to holding for 20 to 30 seconds, if you can. Increase Flexibility Being more flexible makes it easier for you to move around safely. Try exercises like the seated hamstring stretch. Sit in a chair and put one foot on a stool. Straighten your leg and reach with both hands down either side of your leg. Reach as far down your leg as you can. Hold for about 20 seconds. Go back to the starting position. Then repeat 5 times. Switch legs. Build Strength Resistance exercises help build strength. You can do them without equipment. Or you can use weights, elastic bands, or special machines. One such exercise is called the biceps curl. You can hold a 1 pound weight or even a can of soup. Do this exercise at least 3 times a week. Strive for everyday. Sit up straight in a chair. Keep your elbow close to your body and your wrist straight. Bend your arm, moving your hand up to your shoulder. Then slowly lower your arm. Repeat 5 times. Switch to the other arm. Build Your Staying Power Aerobic exercises make your heart and lungs stronger so you can keep moving longer. Walking and swimming are two of the best types of exercises you can do. Using a stationary bike is great, too. Find an aerobic exercise that you enjoy. Start slowly and build up. Even 5 minutes is helpful. Aimfor a goal of 30 minutes, at least 3 times a week. You dont have to do 30 minutes in one session. Break it up and walk a little throughout the day. More Helpful Tips Start easy. Slowly work up to doing more. Talk with your healthcare provider about the best exercises for you. Call senior centers or health clubs about exercise programs. If needed, have a family member watch you walk every so often to check your stability. Exercise with a friend. Choose an activity you both enjoy. Try exercises that you can do anytime, anywhere. Here are two examples. Have someone with you when you first try these: Practice walking by placing one foot right in front of the other. Stand up and sit down 10 times. Repeat this throughout the day. bead Button Patient Education Copyright 2008 bead Button except where otherwise noted. Preventing Falls: Moving Safely Using a Cane or Walker (This education is for all patients over 65 regardless of symptoms) Keep the cane away from your feet so you dont trip. A walking aid, such as a cane or walker, can help you stay more independent and avoid falls. Remember to keep your walking aid within easy reach when youre in a chair or in bed. And learn how to use it safely so you dont injure yourself. Using a Cane If you have a stronger side, hold the cane on that side. Get your balance. Move the cane and your weaker leg forward. Support your weight on both the cane and your weaker side. Step with your stronger leg. Start again from step 1. If youre using a folding walker, be sure you know how to lock it open. Check that its locked open before each use. Using a Walker Roll the walker (or lift it, if youre using one without wheels) forward about 12 inches. Step forward with your weaker leg first. Use the walker to help keep your balance. Bring your other foot forward to the center of the walker. Start again from step 1. Helpful Tips Check with your healthcare provider about the right walking aid to use. Ask about a walker with a seat attached. Check the tips of your cane or walker to make sure they have nonskid covers. Move slowly from room to room. Dont clarke. Sit down to get dressed. Use a maureen pack or backpack to keep your hands free. Get help for jobs that mean climbing, even on a stepstool. bead Button Patient Education Copyright 2008 - 2010 [employer] Button except where otherwise noted. Urinary Incontinence Plan of Care Documentation: (This education is for all patients over 65 regardless of symptoms) Current medications reconciled. Patient encouraged to: Practice kegal exercises Provide education materials Use the restroom every 2 hours throughout the day Limit caffeine, alcohol, spicy foods and acidic foods Keep a bladder diary Limit fluid intake 3-4 hours before bed Lose weight Prevent constipation Take fluid pills at a time when you can get to the bathroom quickly Control sugar better if diabetic Limit fluid intake to 60 oz. per day Wear support stockings (TEDs)if you have edema Glenis Saha RN 05/08/2024 Kegel Exercises Kegel exercises dont require special clothing or equipment. Theyre easy to learn and simple to do. And if you do them right, no one can tell youre doing them, so they can be done almost anywhere. Your doctor, nurse, or physical therapist can answer any questions you have and help you get started. A Weak Pelvic Floor The pelvic floor muscles may weaken due to aging, and vaginal childbirth, injury, surgery, chronic cough, or lack of exercise. If the pelvic floor is weak, your bladder and other pelvic organs may sag out of place. The urethra may also open too easily and allow urine to leak out. Kegel exercises can help you strengthen your pelvic floor muscles so they can better support the pelvic organs and control urine flow. How Kegel Exercises Are Done Try each of the Kegel exercises described below. When youre doing them, try not to move your leg, buttock, or stomach muscles. While youre urinating, try to stop the flow of urine. Start and stop it as often as you can. Contract as if you were stopping your urine stream, but do it when youre not urinating. Tighten your rectum as if trying not to pass gas. Contract your anus, but dont move your buttocks. Helpful Hints Do your Kegels as often as you can. The more you do them, the faster youll feel the results. Pick an activity you do often as a reminder. For instance, do your Kegels every time you sit down. Tighten your pelvic floor before you sneeze, get up from a chair, cough, laugh, or lift. This protects your pelvic floor from injury and can help prevent urine leakage. Try to hold each Kegel for a slow count to five. You probably wont be able to hold them for thatlong at first, but keep practicing. It will get easier as your pelvic floor gets stronger. Eventually, special weights that you place in your vagina may be recommended to help make your Kegels even more effective. Sylvester Patient Education Copyright 2009 - 2010 Sylvester except where otherwise noted. Here are some helpful tips for your urinary incontinence: (This education is for all patients over 65 regardless of symptoms) Practice Kegel exercises Use the restroom every 2 hours throughout the day Limit caffeine, alcohol, spicy foods, and acidic foods Keep a bladder diary Limit fluid intake 3-4 hours before bed Lose weight Prevent constipation Take fluid pills at a time when can get to the bathroom quickly Control sugar better if diabetic Limit fluid intake to 60 oz. per day Any questions, please feel free to contact our office. Hi Ms. Almanza, As your primary care physician, I know that regular visits with my patients who have several chronic conditions can go a long way in helping you stay healthy. Many times, the clinic team and I are in touch with you and/or other care team members between office visits to adjust medications, discuss any changes in your health, and review our care plan to make sure it is still meeting your needs. I am dedicated to helping you take a more active role in your overall care. It is important that there are resources available to you, so I created a personalized plan of care with a Health Calendar for you, which is included on the next page of this letter. Below is a list that summarizes your electronic health record: Health Maintenance Due: Health Maintenance Due Topic Date Due Colonoscopy 02/07/2022 *BISPHONATE OR OTHER ACCEPTABLE MEDICATION NEEDED FOR OSTEOPOROSIS (REFER TO SMARTSET #1146) Never done COVID-19 Vaccine () 06/23/2023 DXA Scan 03/01/2024 Albumin/Creatinine Ratio 07/25/2024 Current Medication List: (as of Visit date not found (in office), Visit date not found (telemedicine) ) Current Outpatient Medications Medication Sig Dispense Refill Vitamin D 50 MCG (2000 UT) Oral Capsule Take 5,000 Units by mouth at bedtime. B-12 500 MCG Oral Tablet Take by mouth 1 Tablet daily . Warfarin Sodium 2 MG Oral Tablet (Coumadin) TAKE 1/2 TO 1 TABLET BY MOUTH ONCE DAILY DIRECTED BY [facility] 90 Tablet 3 Furosemide 20 MG Oral Tablet (Lasix) TAKE TWO TABLETS BY MOUTH ONCE DAILY ON MONDAY, MONDAY,AND MONDAY. TAKE 1 TAB ONCE DAILY ALL OTHER DAYS OF THE WEEK 135 Tablet 3 Potassium Gluconate 595 (99 K) MG [...] in the morning. 90 Tablet 3 Insulin Pen Needle 29G X 12MM (B/D Ultrafine) Use to inject basaglar once daily. 100 Each 3 DULoxetine HCl 30 MG Oral Capsule Delayed Release Particles (Cymbalta) Take 2 Capsules by mouthin the morning. Pantoprazole Sodium 40 MG Oral Tablet Delayed Release (Protonix) Take 1 Tablet by mouth in the morning. Nitroglycerin 0.4 MG Sublingual Tablet Sublingual (Nitrostat) Place 1 Tablet under the tongue every 5 minutes as needed (up to three tablets). Up to 3 doses in 15 minutes. 12 Tablet 3 Current Facility-Administered Medications Medication Dose Route Frequency Provider Last Rate Last Admin potassium chloride ER tab 10 mEq 10 mEq Oral Daily(AM) Chinmay Scherer DO Current List of Allergies: (as of Visit date not found (in office), Visit date not found (telemedicine) ) Review of patient's allergies indicates: Allergen Reactions Cephalexin Unknown Lisinopril Cough Oxycodone nausea, stomach pains Tetanus Toxoid Local reaction, fever Most Recent Lab Results: Results for orders placed or performed in visit on 05/08/24 INR FINGERSTICK, POINT OF CARE Result Value Ref Range Fingerstick INR 2.8 INR *Note: Due to a large number of results and/or encounters for the requested time period, some results have not been displayed. A complete set of results can be found in Results Review. Sincerely, Laverne Pinzon, DO 05/08/2024 [facility] Calendar (as of Visit date not found (in office), Visit date not found (telemedicine) ) Care needs Care needs Last completed Due next Colonoscopy 02/07/2019 02/07/2022 Discuss medication for ostoporosis --- Never done COVID-19 Vaccine () 06/22/2021 06/23/2023 Bone Density 03/01/2022 03/01/2024 Urine albumin/creatinine test 07/25/2023 07/25/2024 Flu vaccine (recommended) (1) 08/30/2023 06/23/2024 Kidney Function Test 12/27/2023 06/28/2024 A1C blood sugar test 01/29/2024 07/30/2024 Diabetic Eye Exam 12/01/2023 12/01/2024 Yearly B-12 vitamin test 01/29/2024 01/28/2025 Diabetic Foot Exam 04/23/2024 04/23/2025 As you look over the recommended services, be sure to check with your insurance company to determine what's covered. [employer] is a great tool that helps you review your medical record online, including test results, doctor notes and your health summary. You can also schedule appointments with me and other members of your care team, request prescription refills and ask for advice related to your medical conditions at [email or web address]. documented in this encounter Progress Notes * Glenis Saha RN - 05/08/2024 10:36 AM EDT AD8 Dementia Screening Interview Person answering questions: patient Remember, "Yes, a change" indicates that there has been a change in the last several years caused by cognitive (thinking and memory) problems 1. Problems with judgement (eg: problems making decisions, bad financial decisions, problems with thinking). No (0) 2. Less interest in hobbies/activities. No (0) 3. Repeats the same things over and over (questions, stories, or statements). No (0) 4. Trouble learning how to use a tool, appliance, or gadget (eg: VCR, computer, microwave, remote control). No (0) 5. Forgets correct month or year. No (0) 6. Trouble handling complicated financial affairs (eg: balancing checkbook, income taxes, paying bills). No (0) 7. Trouble remembering appointments. No (0) 8. Daily problems with thinking and/or memory. No (0) TOTAL AD8: 0 - AD8 Dementia Screening Score The final score is a sum of the number items marked "Yes, A Change". 0 - 1: Normal cognition; 2 or greater: Cognitive impairments is likely to be present - further testing required Adult Annual Wellness Visit: Tootie Almanza is a 84 year old female who presents for an Adult Annual Wellness Visit. Depression Screening: Did the patient complete the screening questionnaire for Depression? Yes Is the patient's total score for Depression 15 or greater? No, no further intervention needed, unless requested by patient. Did the patient answer positively to the suicide question? No, no further intervention needed, unless requested by patient. In general, compared to other people your age, what would you say that your health is? Good Ht Readings from Last 1 Encounters: 05/08/24 1.524 m (5') Wt Readings from Last 1 Encounters: 05/08/24 70.6 kg (155 lb 9.6 oz) Body Mass Index: BMI Greater than 30 Body mass index is 30.39 kg/m. BP Readings from Last 1 Encounters: 05/08/24 140/62 Medical/Surgical/Family History Reviewed: Yes Past Medical History: Diagnosis Date Cardiac pacemaker [...] performed by Trent Cesar MD at ENDOSCOPY [facility] CORONARY ANGIOGRAPHY W/LEFT HEART CATH 02/03/2012 CORONARY ANGIOGRAPHY W/LEFT HEART CATH performed by LAWRENCE GODINEZ at [facility] EGD, FLEXIBLE, DIAGNOSTIC 02/17/2022 gastritis / INPT [facility] INCISION [facility] DRAINAGE Right 08/31/2022 shoulder abscess drained in office by Dr Channing Cedeno INJECT DX/THER SUBSTANCE INTERLAMINAR LUMBAR/SACRAL W IMAGE GUIDE 01/03/2022 INJECTION SPINE LUMBAR OR SACRAL performed by Abelardo Valdes DO at OR [facility] INSERT/REPLACE PACEMAKER,ATRIAL/VENTRICULAR 10/03/2007 dual pacer medtronic [id number] MISCELLANEOUS ORDER ([facility] ONLY) 3 X D&Cs, 1963, 1971 glenis NUC MED-BILIARY CCK STIMULATION 05/07/2010 ejection fraction 81% REMOVAL OF RUPTURED APPENDIX 01/1993 Appendectomy, Rupt Appendx+Abscess SACROILIAC JOINT INJECT W/GUIDANCE 11/11/2021 INJECTION SACROILIAC JOINT performed by Abelardo Valdes DO at OR [facility] SHOULDER SUBQ TUMOR REMOVAL, UNDER 3 CM Right 10/04/2022 EXCISION SOFT TISSUE TUMOR SHOULDER SUBCUTANEOUS performed by Channing Cedeno MD at OR [facility] SURGICAL PROCEDURE ONLY Right 10/04/2022 Excision of sebaceous cyst right shoulder TOTAL HYSTERECTOMY 07/1993 PRINCE (Total Abdominal Hysterectomy) Family History Problem Relation Name Age of Onset Other (macular degen) Mother Heart Disorder Mother Diabetes Aunt (Unspecified) paternal Diabetes Uncle (Unspecified) paternal No Past Hx Son Diabetes Daughter Type I DM Has patient ever had cancer? No Social History Tobacco Use Smoking status: Never Passive exposure: Never Smokeless tobacco: Never Substance Use Topics Alcohol use: No Vaping/E-Cigarette Use Vaping/E-Cigarette Use Never User Vaping/E-Cigarette Substances Vaping/E-Cigarette Devices Tobacco/Alcohol screening completed today? Yes Hospital Care: Admissions (within the last year): Not Applicable ER within 30 days: No Does the patient have an Advance Directives/Living Will? Yes Patient does not have Healthcare POA form. Discussed Healthcare Agent role. States she may have this with her LW at home. To bring in to clinic. Information given on Healthcare agent/ACP. Last Physical Exam: Last physical exam: 04/2024 Does patient see primary provider regularly? Yes Does patient see other providers? Yes, Specialist Patient Care Team updated? Yes Review of patient's allergies indicates: Allergen Reactions Cephalexin Unknown Lisinopril Cough Oxycodone nausea, stomach pains Tetanus Toxoid Local reaction, fever Immunization History Administered Date(s) Administered COVID-19 mRNA, LNP-s, No Preserve, 2-Dose Series ([employer]) 05/08/2021, 06/22/2021 Diptheria/Tetanus (Adult) 06/10/1997 Pneumococcal Conjugate Vacc, 13 Valent (Prevnar) 08/12/2016 Pneumococcal Polysaccharide PPV23 (Pneumovax) 07/20/2005, 05/08/2018 Seasonal Influenza, Quadrivalent Hd (Fluzone Hd) 09/23/2022, 08/30/2023 Seasonal Influenza, Split, IIV3, With Preserve, Inj 08/16/2004, 07/29/2005, 08/04/2006 Seasonal Influenza, Trivalent, Adjuvanted, 65+ yrs 10/01/2019 TD, Preservative Free 01/26/2009 Current Outpatient Medications Medication Sig Dispense Refill Vitamin D 50 MCG (2000 UT) Oral Capsule Take 5,000 Units by mouth at bedtime. B-12 500 MCG Oral Tablet Take by mouth 1 Tablet daily . Warfarin Sodium 2 MG Oral Tablet (Coumadin) TAKE 1/2 TO 1 TABLET BY [facility]TH [facility] Tablet 3 Furosemide 20 MG Oral Tablet (Lasix) TAKE TWO TABLETS BY MOUTH ONCE DAILY ON MONDAY, MONDAY, ANDMONDAY. TAKE 1 TAB ONCE DAILY ALL OTHER DAYS OF THE WEEK 135 Tablet 3 Potassium Gluconate 595 (99 K) MG Oral Tablet Take by mouth daily. Insulin Glargine Solostar 100 UNIT/ML Subcutaneous Solution Pen-injector (Vistar MediaikPen) Inject 30 Units under the skin daily. [...] in the morning. 90 Tablet 3 Insulin Pen Needle 29G X 12MM (B/D Ultrafine) Use to inject basaglar once daily. 100 Each 3 DULoxetine HCl 30 MG Oral Capsule Delayed Release Particles (Cymbalta) Take 2 Capsules by mouth in the morning. Pantoprazole Sodium 40 MG Oral Tablet Delayed Release (Protonix) Take 1 Tablet by mouth in the morning. Nitroglycerin 0.4 MG Sublingual Tablet Sublingual (Nitrostat) Place 1 Tablet under the tongue every5 minutes as needed (up to three tablets). Up to 3 doses in 15 minutes. 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 Vitamin D deficiency DYSLIPIDEMIA, GOAL LDL BELOW 70 Type 2 diabetes mellitus with hemoglobin A1c goal of 7.0%-8.0% (HCC) Chronic diarrhea Cardiac pacemaker in situ Pulmonary hypertension (HCC) DISH (diffuse idiopathic skeletal hyperostosis) Type 2 diabetes mellitus with diabetic neuropathy (HCC) HTN, goal below 130/80 Persistent atrial fibrillation (HCC) Heart failure, diastolic, with acute decompensation ([facility]) Atherosclerosis of [place] coronary artery of [place] heart without angina pectoris Age-related osteoporosis without current pathological fracture Type 2 diabetes mellitus with mild nonproliferative diabetic retinopathy without macular edema, left eye ([facility]) Chronic kidney disease, stage 3a (HCC) 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 Yes Patient takes medications as prescribed? Yes Patient manages own medications: Yes Patient uses a pill box? Yes, refill(s) completed by self Dental Exam: No Dentures Eye Screening: Yes: Every year Are you having trouble with hearing? No Do you use an assistive device to help your hearing? No Exercise Screening: does not exercise regularly Nutrition Assessment: Eats a balanced diet and Eats three meals a day Pain Screening: Are you having any pain? Yes. Pain Scale: 5 out of 10; Location: low back, When: years, Duration: constant, Aggravating Factors: sitting, Relieved by: chiropractor, heat/cold Sleep Screening Tool 'STOP': Do you snore? Yes Do you feel fatigued during the day? No Do you wake up feeling like you haven't slept? No Have you been told you stop breathing at night? No Do you gasp for air or choke while sleeping? No Have you been told you have Sleep Apnea? No Do you have high blood pressure or are on medication(s) to control high blood pressure? Yes SCORE: If you check YES to two or more questions, make a referral for Obstructive Sleep Apnea Offered sleep apnea evaluation - declined Patient and Caregiver Support System: Patient lives with a spouse and friend Means of Transportation: Friend transports Patient lives in Two Story - How many stairs: 13 steps with hand railings Community Resources: Not Applicable Functional Status and ADL Skills: Has patient ever had an amputation? No Functional Assessment: 90- Able to carry on normal activity, minor symptoms of disease Ambulation: Patient ambulates without assistive device. Independent Dressing: Gets clothes and dresses without any assistance: Independent Able to move freely in chair or bed including turning over: Independent Repositioning (bed or chair): Not applicable Transfers: Independent Toileting: Goes to bathroom, uses toilet, arranges clothes and returns without any assistance: Independent Toileting: continent of bladder and continent of bowel Feeding: Self Bathing: Self; tub, grab bars, mat to step out onto, shower chair Requires none assistance with ADLs. Instrumental ADL's: Shopping: Moderate Assistance Housekeeping: Moderate Assistance Handling Finances: Independent DME Vendor Name: Not Applicable Fall Risk Assessment: Can the patient demonstrate that she can stand from a sitting position? Yes Has the patient had a fall within the last 6 months? No Does the patient have a problem with her gait or balance? No Does the patient take 4 or more prescription medicines? Yes Does the patient use sedatives or narcotics? No Fall Risk Factors Present: Uses more than 4 medications Older than age 70 Gdh-Pz-fsk-Go Test: Time began at 1000. Patient stood from sitting position and walked approximately 10 feet, returned and sat down. Total time for xyh-tp-rxv-go test was 13 seconds. Pre-Su-qns-Go Test completed? Yes Gender Specific Preventative Plan: Health Maintenance Topic Date Due Colonoscopy 02/07/2022 *BISPHONATE OR OTHER ACCEPTABLE MEDICATION NEEDED FOR OSTEOPOROSIS (REFER TO SMARTSET #1146) Never done COVID-19 Vaccine ( season) 2023 DXA Scan 03/01/2024 Albumin/Creatinine Ratio 07/25/2024 Influenza Vaccine (FLU shot) (1) 06/23/2024 GFR 06/28/2024 HbA1c 07/30/2024 Diabetic Eye Exam 12/01/2024 CKD HGB USE SMARTSET 23824 01/28/2025 CKD PHOS USE SMARTSET [id number] 01/28/2025 B-12 01/28/2025 Diabetic Foot Exam 04/23/2025 Depression Screening 05/08/2025 VITAMIN D LEVEL ONCE IN A LIFETIME-USE SMARTSET# [id number] Completed Pneumococcal Vaccine: 65+ Years Completed Hepatitis B Vaccine Aged Out MENINGOCOCCAL (MENACTRA/MENVEO) Aged Out HPV (Gardasil) Vaccine Aged Out Zoster Vaccines Discontinued Follow Up/ Referrals/Handouts: Depression screening - Completed Functional assessment - Completed Falls Risk screening - Completed, handout given Exercise screening - Encouraged to be as active as able Nutrition assessment -. Education Provided and Handouts Provided Pain screening - Chronic back pain, no new concerns Incontinence screening - No concerns Routine general medical examination at a health care facility (Primary) Risk and functional assessment Type 2 diabetes mellitus with hemoglobin A1c goal of 7.0%-8.0% (HCC) Component Latest Ref Rng 01/29/2024 Hemoglobin A1C 4.0 - 5.6 % 8.3 (H) Estimated Average Glucose <126 mg/dL 192 (H) -Med reconciliation completed and compliance discussed. - pt to continue present medications. Continue to monitor and follow with PCP DYSLIPIDEMIA, GOAL LDL BELOW 70 Component Latest Ref Rng 01/29/2024 HDL Cholesterol >49 mg/dL 46 (L) Non-HDL Cholesterol <=159 mg/dL 84 -Med reconciliation completed and compliance discussed. - pt to continue present medications. Continue to monitor and follow with PCP HTN, goal below 130/80 BP Readings from Last 3 Encounters: 05/08/24 140/62 04/23/24 118/64 02/23/24 120/66 -Med reconciliation completed and compliance discussed. - pt to continue present medications. Continue to monitor and follow with PCP Persistent atrial fibrillation (HCC) Cardiac pacemaker in situ Atherosclerosis of [place] coronary artery of [place] heart without angina pectoris -Med reconciliation completed and compliance discussed. - pt to continue present medications. Continue to monitor and follow with Cardiology Chronic kidney disease, stage 3a (HCC) Continue to monitor and follow with PCP Patient has been verbally educated on the need or importance of Colon Cancer Screening and Dexa Scan Patient declined Colonoscopy Dexa scan - patient states she will discuss with PCP at next appointment. Discussed importance of Covid Vaccine: pt has received the vaccine Yes, Patient has received Covid vaccine. Declines further vaccine at this time. Would patient like to schedule next AWV visit? Yes Glenis Saha RN documented in this encounter Miscellaneous Notes * Pt Handout (not on AVS) - Glenis Saha RN - 05/08/2024 11:00 AM EDT [id number] Fall Prevention Falls often take place due to slipping, tripping, or losing your balance. Millions of people fall every year and injure themselves. Among older adults in the [place] falls are the most common cause of traumatic brain injuries. Every 20 minutes, an older adult dies from a fall. Here are ways to reduceyour risk of falling again: Think about your fall. Was there anything that caused your fall that can be fixed, removed, or replaced? Make your home safe by keeping walkways clear of objects you may trip over, such as electrical cords. Use nonslip pads under rugs. Don't use area rugs or small throw rugs. Use nonslip mats in bathtubs and showers. Hang grab rails by the toilet and inside and outside the shower. Install handrails and lights on staircases. The handrails should be on both sides of the stairs. Use night lights. Don't walk in poorly lit areas. Don't stand on chairs or wobbly ladders. Use care when reaching overhead or looking up. This position can cause a loss of balance. Be sure your shoes fit well, are in good condition, and have nonslip bottoms. Wear shoes both inside and outside of your home. Don't go barefoot or wear slippers. Be cautious when going up and down stairs, curbs, and when walking on uneven sidewalks. If your balance is poor, consider using a cane or walker. Talk with your healthcare provider about having a balance assessment. If your fall was related to alcohol use, stop or limit alcohol intake. Ask your provider for help if you think you may overuse alcohol and can't stop. If your fall was related to use of sleeping medicines, talk with your provider about this. You may need to reduce your dosage at bedtime if you wake up during the night to go to the bathroom. To reduce the need for nighttime bathroom trips: o Don't drink fluids for several hours before going to bed o Empty your bladder before going to bed o Men can keep a urinal at the bedside Stay as active as you can. Balance, flexibility, strength, and endurance all come from exercise.They all play a role in preventing falls. Ask your provider which types of activity are right for you. Try to do some type of exercise every day. Get your eyes checked once a year or more often if your vision changes If you have pets, know where they are before you stand up or walk so you don't trip over them. Go over all your medicines with a pharmacist or other provider. This is to see if any of them could make you more likely to fall. Have this type of medicine review at least once every year. If your provider advises a new medicine, ask if the side effects will affect your balance. Don't move quickly from one position to another. For instance, don't stand up fast from sitting.This can cause dizziness and may lead to a fall. Sit down when putting on pants, socks, and shoes. This will make you less likely to lose your balance and fall. Always let your provider know if you have fallen since your last visit. Contact your provider right away if you're having balance problems or falling more often. Last Reviewed Date: 10/23/202119991766-5392 [employer]. All rights reserved. This information is not intended as a substitute for professional medical care. Always follow your healthcare professional's instructions. * Pt Handout (not on AVS) - Glenis Saha RN - 05/08/2024 11:00 AM EDT Images from the original note were not included. [id number] Steps for Eating Healthier Changing the way you eat can improve your health. It can lower your cholesterol and blood pressure,and help you stay at a healthy weight. Your diet doesn?t have to be bland and boring to be healthy.Just watch your calories and follow these steps: Step 1. Eat fewer unhealthy fats Choose more fish and lean meats instead of fatty cuts of meat. Skip butter and lard, and use less margarine. Replace these with healthier fats, such as olive, canola, or avocado oils. Pass on foods that have palm, coconut, or partially hydrogenated oils. Eat fewer high-fat dairy foods like cheese, ice cream, and whole milk. Get a heart-healthy cookbook and try some new recipes. Step 2. Go light on salt Keep the saltshaker off the table. Limit high-salt ingredients, such as soy sauce, bouillon, and garlic salt. Instead of adding salt when cooking, season your food with herbs, spices, and other flavorings. Try lemon, garlic, onion, vinegar, or salt-free herb seasonings. Limit convenience foods, such as boxed or canned foods and restaurant food. Read food labels and choose lower-sodium options. Buy fresh, frozen, or canned vegetables that don't have added salt. Step 3. Limit sugar Pause before you add sugars to pancakes, cereal, coffee, or tea. This includes white and brown table sugar, syrup, honey, and molasses. Cut your usual amount by half. Swap out sugar-filled soda and other drinks. Buy sugar-free or low-calorie beverages. Remember, water is always the best choice. Try adding lemon juice to water for extra flavor. Read labels and choose foods with less added sugar. Keep in mind that dairy foods and foods withfruit will have some natural sugar. Cut the sugar in recipes by 1/3 to 1/2. Boost the flavor with extracts like almond, vanilla, or orange. Or add spices such as cinnamon or nutmeg. Step 4. Eat more fiber Eat fresh fruits and vegetables every day. Boost your diet with whole grains. Go for oats, whole-grain rice, and bran. Add beans and lentils to your meals. Drink more water to match your fiber increase to help prevent constipation. Step 5. Pay attention to serving sizes Remember that a serving size is a standard measurement. It will let you track the amount of fat,calories, and other nutrients in the food you eat. Read the Nutrition Facts label on packaged foods to learn their serving sizes. Use serving sizes to assess how much food you put on your plate. Pay attention to your portions.How many servings are you eating? Keep in mind that your needs may change if you?re more active or less active, or if you have other factors that change your calorie needs. Use your hand to help you measure serving sizes. For example: o 1 teaspoon: This is about the size of the first joint of your thumb. o 1 tablespoon: This is about the size of the first 2 joints of your thumb. o 1 ounce: This is about what you can fit in your cupped hand. o 2 to 3 ounces: This is about the size of the palm of your hand. o cup: This is also about what you can fit in your cupped hand. o 1 cup: This is about the size of your fist. Last Reviewed Date: 09/22/202219995228-4549 [employer]. All rights reserved. This information is not intended as a substitute for professional medical care. Always follow your healthcare professional's instructions. documented in this encounter Plan of Treatment Upcoming Encounters Date Type Department Care Team (Late st Contact Info) Description 05/24/2024 9:00 AM EDT [facility] [place] [id number] [facility] [phone] [facility]riz [facility] [address] [address] 06/12/2024 11:10 AM EDT Anticoagulation Pharmacy, [place] [address] [address] [facility] [address] [address] 06/12/2024 11:20 AM EDT Office Visit Pharmacy, [place] [address] [facility] [address] [facility] [address] [address] 06/14/2024 9:00 AM EDT Cardiac Studies Cardiology, [facility] [address] [facility] [place] [address] [place], [facility] [address] [facility] [place] [address] 09/02/2024 10:00 AM EST Office Visit Cardiology, [facility] [address] [place] [address] [place] Momin PA-C [address] [place] [address] 05/14/2025 10:00 AM EDT Nurse Only Ancillary Department, [place] [address] [address] [place], Nurse Annual [facility] [address] [place] [address] Scheduled Procedures Name Priority Associated Diagnoses Date/Ti [...] Additional history exists CKD HGB USE SMARTSET 17861 01/28/202501/28, 01/29/2024, 12/27/2023, Additional history exists CKD PHOS USE SMARTSET [id number] 01/28/2025 04/0 05/2024, 02/01/2023, 07/29/2022, Additional history exists Diabetic Foot Exam 04/23/2025 04/23/2024, 1 , 07/26/2021, Additional history exists Depression Screening 05/08/2025 05/08/2024 VITAMIN D LEVEL ONCE IN A LIFETIME-USE SMARTSET# [id number] Completed 08/28/2008, 04/07/2008, 12/04/2007 Pneumococcal Vaccine: 65+ [...] as of this encounter Visit Diagnoses Diagnosis Routine general medical examination at a health care facility- Primary Risk and functional assessment Screening for unspecified condition Type 2 diabetes mellitus with hemoglobin A1c goal of 7.0%-8.0% (HCC) DYSLIPIDEMIA, GOAL LDL BELOW 70 Other and unspecified hyperlipidemia HTN, goal below 130/80 Unspecified essential hypertension Persistent atrial fibrillation (HCC) Atrial fibrillation Cardiac pacemaker in situ Atherosclerosis of [place] coronary artery of [place] heart without angina pectoris Chronic kidney disease, stage 3a (HCC) documented in this encounter Advance Directives * No Code Status (Latest Code Status on File) Date Activated Date Inactivated Comments 01/11/2005 2:56 PM 01/11/2005 3:56 PM Care Teams Hand Deicer Element Winder Relationship Specialty Start Date End Date Pete Ambriz MD [address] [place] [address] PCP - General Internal Medicine 05/08/24 documented as of this encounter
--- OUTSIDE RECORDS SUMMARY | 2024-10-24 23:49 | External Medical Summary ---
Author Name Unknown Address Unknown Organization : Laboratory Report Ordering Provider Test Date Status SALAS BALL 05/08/2024 09:54:06 Final Therapeutic ranges for non-o perative patients:
Prophylaxsis/treatment of DVT: (Range:2.0-3.0)
Treatment of pulmonary embolism:(Range:2.0-3.0)
Prevention of systemic embolism from:
-tissue heart valves
-acute myocardial infarction
-valvular heart disease
-atrial fibrillation
(Range: 2.0-3.0)
Mechanical prosthetic valves: (Range: 2.5-3.5) Observation Date Value Abnormality Reference (Units ) Status INR in Capillary blood by Coagulation assay 05/08/2024 09:54:06 2.8 (INR) Final Performing Location
[2024-10-24] MEDS: amLODIPine BESYLATE 5 MG TAB PO ONE (23:50)
[2024-10-24] MEDS: INSULIN ASPART PER UNIT CHARGE SC SCH (23:52)
--- NOTE | 2024-10-25 00:18 | Emergency Department Note ---
History of Present Illness General Chief complaint: Illness Stated complaint: CONFUSION, CHILLS, Time Seen by Provider: 10/24/24 16:33 Source: patient and family (Family at bedside) History of Present Illness Provider complaint: Confusion chills shortness of breath 84-year-old female presents to the emergency department with her family for chills and altered mental status that began today. The family reports that the patient has been having shortness of breath and cough for the last month. They report no recent falls or traumas. Family states they are concerned that the patient might have a UTI or be dehydrated. Home Medications Medication Instructions Recorded Confirmed Type cholecalciferol (vitamin D3) 125 5,000 units PO HS 06/25/19 10/24/24 History mcg (5,000 unit) capsule losartan 100 mg tablet 100 mg PO QAM 06/25/19 10/24/24 History nitroglycerin 0.4 mg sublingual 0.4 mg sublingual DIRECTED PRN 06/25/19 10/24/24 History tablet Chest Pain rosuvastatin 20 mg tablet 20 mg PO HS 06/25/19 10/24/24 History furosemide 20 mg tablet (Lasix) See Rx Instructions .Route .COMPLEX 10/24/19 10/24/24 History empagliflozin 25 mg tablet 25 mg PO QAM 08/31/20 10/24/24 History (Jardiance) potassium chloride 10 mEq See Rx Instructions .Route .COMPLEX 08/31/20 10/24/24 History tablet,extended release(part/cryst) warfarin 2 mg tablet 2 mg PO DIRECTED #0 tabs 09/03/20 10/24/24 Rx aspirin 81 mg tablet 81 mg PO 3XWK 02/15/22 10/24/24 History insulin glargine 100 unit/mL (3 24 unit subcut QAM 02/15/22 10/24/24 History mL) subcutaneous pen (Lantus Solostar U-100 Insulin) mecobalamin (vitamin B12) 1,000 1,000 mcg PO DAILY 02/15/22 10/24/24 History mcg chewable tablet (B12 Active) metformin 1,000 mg 24 hr 1,000 mg PO BIDM 02/15/22 10/24/24 History tablet,extended release (gastric reten.) metoprolol tartrate 100 mg tablet 100 mg PO BID 02/15/22 10/24/24 History pantoprazole 40 mg tablet,delayed 40 mg PO DAILY #30 tabs 02/19/22 10/24/24 Rx release (Protonix) Allergies Allergy/AdvReac Type Severity Reaction Status Date / Time lisinopril Allergy Intermediate Cough Verified 10/24/24 20:56 cefazolin Allergy Unknown CEPHALEXIN-PT Verified 10/24/24 20:56 DOESN'T REMEMBER WHAT HAPPENED tetanus toxoid, adsorbed Allergy Unknown LOCAL Verified 10/24/24 20:56 REACTION/FEVER oxycodone AdvReac Unknown NAUSEA/STOMACH Verified 10/24/24 20:56 PAINS Past Med/Surg History Problem List (Updated 10/25/24 @ 00:17 by Johnny Barr MD) CHF (congestive heart failure) (Acute) Acute UTI (Acute) AMS (altered mental status) (Acute) Dyspnea on exertion Pacemaker (Acute) Infarction of spleen (Acute) Anemia (Acute) Current use of care home anticoagulation (Acute) Atrial fibrillation (Acute) Do not resuscitate status Diabetes mellitus type 2 with complications Atrial fibrillation with RVR (Acute) COVID-19 (Acute) Lumbar radiculopathy (Chronic) Chronic anticoagulation (Chronic) Low back pain (Chronic) Aortocoronary bypass status (Chronic) Cardiac pacemaker (Chronic) DISH (diffuse idiopathic skeletal hyperostosis) (Chronic) IBS (irritable bowel syndrome) (Chronic) Coronary atherosclerosis (Chronic) Pulmonary HTN (Chronic) Hyponatremia (Chronic) Dyslipidemia (Chronic) Type 2 diabetes mellitus (Chronic) Atrial fibrillation (Chronic) Hyperlipidemia (Chronic) DM type 2 (diabetes mellitus, type 2) (Chronic) Tachy-aylin syndrome (Chronic) "s/p pacemaker" HTN (hypertension) (Chronic) Paroxysmal atrial fibrillation (Chronic) "on chronic anticoagulation" CAD (coronary artery disease) (Chronic) Medical History Encounter for pre-operative examination History of pacemaker Surgical History Hx of CABG H/O: hysterectomy Hx of appendectomy Family History Aunt Diabetes Uncle Diabetes Daughter Diabetes Mother Hypertension Heart disease Father Hypertension Heart disease Social History Smoking Status: Never smoker Second Hand Exposure: No; Do You Dip or Chew Tobacco: No; Hx Alcohol Use: No Hx Substance Use: No Preferred Language: Dominican Communication Ability: Effective Visual Impairment: No Limitations Hearing Ability: Normal Leadership Program Internship Required: No Beliefs That Will Affect Care: None marital status: Current Living Situation: Spouse current occupational status: retired Other Information That Helps Us Care for You: No Feels Safe at Home: Yes Safety Concerns: Feels Safe At This Time Assistive Devices: Denture - Upper Physical Exam Vital Signs Vital Signs - 24 hr 10/24/24 16:03 10/24/24 16:39 10/24/24 16:39 Temperature 37.9 C H Temperature Source Oral Pulse Rate 61 Pulse Rate [Apical] 61 Pulse Rhythm [Apical] Pulse Strength [Apical] Respiratory Rate 28 H 22 Respiratory Effort / Characteristics Short of Breath Respiratory Depth Respiratory Pattern Regular Blood Pressure 122/51 L Blood Pressure [Left Arm] 121/53 L Blood Pressure Mean 74 Blood Pressure Mean [Left Arm] 75 Blood Pressure Position [Left Arm] Lying Pulse Oximetry 97 97 97 Oxygen Delivery Method Room Air Room Air Room Air Sepsis Recent Fever Within 48 Hours Yes Sepsis New/Unexplained Change in Mental Status Yes Sepsis Action Taken by Nursing No Action Required 10/24/24 17:50 10/24/24 18:41 10/24/24 20:00 Temperature 37.2 C Temperature Source Oral Pulse Rate 65 Pulse Rate [Apical] 60 61 Pulse Rhythm [Apical] Regular Pulse Strength [Apical] Normal Respiratory Rate 22 18 Respiratory Effort / Characteristics Non-Labored Spontaneous Respiratory Depth Normal Respiratory Pattern Regular Blood Pressure Blood Pressure [Left Arm] 120/54 L 157/67 H Blood Pressure Mean Blood Pressure Mean [Left Arm] 76 97 Blood Pressure Position [Left Arm] Sitting Semi-fowlers Pulse Oximetry 96 96 Oxygen Delivery Method Room Air Room Air Sepsis Recent Fever Within 48 Hours Sepsis New/Unexplained Change in Mental Status Sepsis Action Taken by Nursing 10/24/24 21:08 10/24/24 22:00 Temperature Temperature Source Pulse Rate 60 Pulse Rate [Apical] 60 Pulse Rhythm [Apical] Regular Pulse Strength [Apical] Normal Respiratory Rate 18 Respiratory Effort / Characteristics Non-Labored Spontaneous Respiratory Depth Normal Respiratory Pattern Regular Blood Pressure Blood Pressure [Left Arm] 174/79 H Blood Pressure Mean Blood Pressure Mean [Left Arm] 110 Blood Pressure Position [Left Arm] Semi-fowlers Pulse Oximetry 98 Oxygen Delivery Method Room Air Sepsis Recent Fever Within 48 Hours Sepsis New/Unexplained Change in Mental Status Sepsis Action Taken by Nursing Physical Exam GENERAL: oriented to person, and place but not time. appears well-developed and well-nourished. HENT: Exam performed. - Head: Normocephalic and atraumatic. EYES: Conjunctivae and EOM are normal. Right eye exhibits no discharge. Left eye exhibits no discharge. No scleral icterus. NECK: Normal range of motion. Neck supple. No JVD present. CV: Normal rate, regular rhythm, normal heart sounds and intact distal pulses. There is no peripheral edema. Palpable radial pulses bue. PULM/CHEST: Rhonchi and rales bilaterally. ABD: The abdomen is soft. There is no tenderness. NEURO: Motor and sensation grossly intact. Course Course 1633: The patient was evaluated in room C8. A complete history and physical exam was performed Administered Medications Insulin Aspart (Insulin Aspart Per Unit Charge) 0 units SC ACHS LISS Stop: 11/23/24 23:10 Last Admin: 10/24/24 23:52 Dose: Not Given Documented By: LMP Discontinued Medications Amlodipine Besylate (Amlodipine Besylate 5 Mg Tab) 2.5 mg PO NOW ONE Stop: 10/24/24 23:27 Last Admin: 10/24/24 23:50 Dose: 2.5 mg Documented By: LMP Furosemide (Furosemide 40 Mg/4 Ml Vial) 40 mg IV ONE ONE Stop: 10/24/24 19:46 Last Admin: 10/24/24 20:43 Dose: 40 mg Documented By: DIETER Acetaminophen (Ofirmev) 1,000 mg in 100 mls @ 400 mls/hr IV NOW STA Stop: 10/24/24 16:58 Last Infusion: 10/24/24 17:36 Dose: Infused Documented By: Admin: 10/24/24 17:00 Dose: 400 mls/hr Documented By: PAVITHRA Ciprofloxacin (Cipro / D5w) 400 mg in 200 mls @ 200 mls/hr IV NOW STA Stop: 10/24/24 20:44 Last Infusion: 10/24/24 22:06 Dose: Infused Documented By: Admin: 10/24/24 20:43 Dose: 200 mls/hr Documented By: DIETER Medical Decision Making Laboratory Data Attestation: I reviewed the patient's lab results. 10/24/24 18:12 10/24/24 17:11 Lab Results 10/24/24 10/24/24 10/24/24 Range/Units 16:57 17:11 18:12 WBC 16.82 H (4.8-10.8) K/ul RBC 3.90 L (4.20-5.40) M/uL Hgb 11.9 L (12.0-16.0) g/dl Hct 35.1 L (37.0-47.0) % MCV 90.0 (80.0-100.0) fL MCH 30.5 (25.0-34.0) pg MCHC 33.9 (32.0-36.0) g/dL RDW Std Deviation 47.1 H (36.4-46.3) fL RDW Coeff of Alex 14.5 (11.5-14.5) % Plt Count 210 (130-400) K/uL MPV 9.9 (9.4-12.4) fL Immature Gran % (Auto) 0.5 % Neut % (Auto) 79.6 % Lymph % (Auto) 12.3 % Jefferson % (Auto) 7.1 % Eos % (Auto) 0.1 % Baso % (Auto) 0.4 % Neut # (Auto) 13.39 H (1.40-6.50) K/uL Lymph # (Auto) 2.07 (1.20-3.40) K/uL Jefferson # (Auto) 1.20 H (0.11-0.59) K/uL Eos # (Auto) 0.01 (0.00-0.50) K/uL Baso # (Auto) 0.06 (0.00-0.20) K/uL Immature Gran # (Auto) 0.09 (0.01-0.20) K/uL PT 22.5 H (9.0-12.0) Seconds INR 2.2 H (0.9-1.1) APTT 38 H (21-31) Seconds PTT Ratio 1.4 VBG pH 7.47 H (7.36-7.41) VBG pCO2 32 L (38-50) mmHg VBG pO2 < 20 mmHg VBG HCO3 23 mmol/L VBG O2 Saturation < 60.0 % VBG Base Excess 0.3 mEq/L Sodium 134 L (136-145) mmol/L Potassium 4.0 (3.5-5.1) mmol/L Chloride 102 (98-107) mmol/L Carbon Dioxide 23 (21-32) mmol/L Anion Gap 9 (3-11) BUN 21 (6-23) mg/dl Creatinine 1.21 H (0.6-1.2) mg/dl Est Cr Clr Drug Dosing 33.9 ml/min eGFR 44.75 BUN/Creatinine Ratio 17.4 (10-20) Glucose 116 H (70-99(Fasting)) mg/dl Lactate 1.9 (0.4-2.0) mmol/L Calcium 9.0 (8.6-10.3) mg/dl Magnesium 2.0 (1.7-2.4) mg/dl Total Bilirubin 0.6 (0.2-1.0) mg/dl Direct Bilirubin 0.2 (0-0.2) mg/dl AST 27 (13-39) U/L ALT 28 (7-52) U/L Alkaline Phosphatase 48 (34-104) U/L Troponin I High Sens 8.1 (0-14) pg/ml B-Natriuretic Peptide 133 H (0-100) pg/ml Total Protein 7.7 (6.0-8.3) gm/dl Albumin 4.0 (3.4-5.0) gm/dl Procalcitonin 0.14 (0-0.5) ng/ml TSH 0.651 (0.300-4.500) uIu/ml Urine Color Urine Appearance (Clear) Urine pH (4.5-7.5) Ur Specific Valmy (1.000-1.030) Urine Protein (Negative) Urine Glucose (UA) (Negative) Urine Ketones (Negative) Urine Blood (Negative) Urine Nitrite (Negative) Urine Bilirubin (Negative) Urine Urobilinogen (Negative) Ur Leukocyte Esterase (Negative) Urine WBC (Auto) (0-5) /hpf Urine RBC (Auto) (0-2) /hpf U Hyaline Cast (Auto) (0-2) /lpf U Epithel Cells (Auto) (0-2) /hpf Urine Bacteria (Auto) (None Seen) Adenovirus (PCR) Not Detected (NotDetected) B. pertussis DNA (PCR) Not Detected (NotDetected) B.parapertussis DNA PCR Not Detected (NotDetected) C. pneumoniae DNA (PCR) Not Detected (NotDetected) Coronavirus OC43 (PCR) Not Detected (NotDetected) Coronavirus HKU1 (PCR) Not Detected (NotDetected) Coronavirus 229E (PCR) Not Detected (NotDetected) SARS-CoV-2 (PCR) Not Detected (NotDetected) Coronavirus NL63 (PCR) Not Detected (NotDetected) Human Metapneumovir PCR Not Detected (NotDetected) Influenza Type A (PCR) Not Detected (NotDetected) Influenza Type B (PCR) Not Detected (NotDetected) M. pneumoniae (PCR) Not Detected (NotDetected) Parainfluenza 1 (PCR) Not Detected (NotDetected) Parainfluenza 2 (PCR) Not Detected (NotDetected) Parainfluenza 3 (PCR) Not Detected (NotDetected) Parainfluenza 4 (PCR) Not Detected (NotDetected) RSV (PCR) Not Detected (NotDetected) Entero/Rhino (PCR) Not Detected (NotDetected) 10/24/24 Range/Units 19:18 WBC (4.8-10.8) K/ul RBC (4.20-5.40) M/uL Hgb (12.0-16.0) g/dl Hct (37.0-47.0) % MCV (80.0-100.0) fL MCH (25.0-34.0) pg MCHC (32.0-36.0) g/dL RDW Std Deviation (36.4-46.3) fL RDW Coeff of Alex (11.5-14.5) % Plt Count (130-400) K/uL MPV (9.4-12.4) fL Immature Gran % (Auto) % Neut % (Auto) % Lymph % (Auto) % Jefferson % (Auto) % Eos % (Auto) % Baso % (Auto) % Neut # (Auto) (1.40-6.50) K/uL Lymph # (Auto) (1.20-3.40) K/uL Jefferson # (Auto) (0.11-0.59) K/uL Eos # (Auto) (0.00-0.50) K/uL Baso # (Auto) (0.00-0.20) K/uL Immature Gran # (Auto) (0.01-0.20) K/uL PT (9.0-12.0) Seconds INR (0.9-1.1) APTT (21-31) Seconds PTT Ratio VBG pH (7.36-7.41) VBG pCO2 (38-50) mmHg VBG pO2 mmHg VBG HCO3 mmol/L VBG O2 Saturation % VBG Base Excess mEq/L Sodium (136-145) mmol/L Potassium (3.5-5.1) mmol/L Chloride (98-107) mmol/L Carbon Dioxide (21-32) mmol/L Anion Gap (3-11) BUN (6-23) mg/dl Creatinine (0.6-1.2) mg/dl Est Cr Clr Drug Dosing ml/min eGFR BUN/Creatinine Ratio (10-20) Glucose (70-99(Fasting)) mg/dl Lactate (0.4-2.0) mmol/L Calcium (8.6-10.3) mg/dl Magnesium (1.7-2.4) mg/dl Total Bilirubin (0.2-1.0) mg/dl Direct Bilirubin (0-0.2) mg/dl AST (13-39) U/L ALT (7-52) U/L Alkaline Phosphatase (34-104) U/L Troponin I High Sens (0-14) pg/ml B-Natriuretic Peptide (0-100) pg/ml Total Protein (6.0-8.3) gm/dl Albumin (3.4-5.0) gm/dl Procalcitonin (0-0.5) ng/ml TSH (0.300-4.500) uIu/ml Urine Color Yellow Urine Appearance Clear (Clear) Urine pH 7.5 (4.5-7.5) Ur Specific Val[place] 1.027 (1.000-1.030) Urine Protein 1+ H (Negative) Urine Glucose (UA) 3+ H (Negative) Urine Ketones Negative (Negative) Urine Blood Negative (Negative) Urine Nitrite Negative (Negative) Urine Bilirubin Negative (Negative) Urine Urobilinogen Negative (Negative) Ur Leukocyte Esterase 1+ H (Negative) Urine WBC (Auto) 21-50 H (0-5) /hpf Urine RBC (Auto) 0-2 (0-2) /hpf U Hyaline Cast (Auto) 0-2 (0-2) /lpf U Epithel Cells (Auto) 3-5 H (0-2) /hpf Urine Bacteria (Auto) 1+ H (None Seen) Adenovirus (PCR) (NotDetected) B. pertussis DNA (PCR) (NotDetected) B.parapertussis DNA PCR (NotDetected) C. pneumoniae DNA (PCR) (NotDetected) Coronavirus OC43 (PCR) (NotDetected) Coronavirus HKU1 (PCR) (NotDetected) Coronavirus 229E (PCR) (NotDetected) SARS-CoV-2 (PCR) (NotDetected) Coronavirus NL63 (PCR) (NotDetected) Human Metapneumovir PCR (NotDetected) Influenza Type A (PCR) (NotDetected) Influenza Type B (PCR) (NotDetected) M. pneumoniae (PCR) (NotDetected) Parainfluenza 1 (PCR) (NotDetected) Parainfluenza 2 (PCR) (NotDetected) Parainfluenza 3 (PCR) (NotDetected) Parainfluenza 4 (PCR) (NotDetected) RSV (PCR) (NotDetected) Entero/Rhino (PCR) (NotDetected) Imaging Data Radiologist's Impression: Chest X-Ray 10/24/24 16:06 EXAM: XR chest 1V not portable CLINICAL HISTORY: COUGH, SOB TECHNIQUE: X-ray images of the chest were obtained in AP projections. COMPARISON: No prior studies are available for comparison. FINDINGS: Pulmonary Parenchyma: Bilateral mild prominent bronchovascular markings may denote mild congestive changes, and correlate clinically. No major collapse or consolidation. Both costophrenic angles appear clear. The left apical region is obscured by the patient's face. Heart and Mediastinum: Heart size is enlarged. No mediastinal widening or masses. No hilar or mediastinal lymphadenopathy. Dual lead pacemaker in place, with prior sternotomy. Bony Thorax: The bony thorax appears intact without fractures or deformities. Degenerative changes in the visualized spine and both acromioclavicular joints Soft Tissues: Soft tissues overlying the chest wall are unremarkable. IMPRESSION: 1. Cardiomegaly. Bilateral mild prominent perihilar bronchovascular markings may denote mild vascular congestive changes, correlate clinically. 2. Obliterated left costophrenic angle, may be a small effusion/thickening. Electronically signed by Vitaly Sykes 10-24-2024 5:[address] 10/24/24 16:35 EXAMINATION: Head CT without CLINICAL HISTORY: Altered mental status PRIORS: 04/25/2023 TECHNIQUE: Contiguous axial images were obtained through the head without the use of intravenous contrast. Sagittal and coronal reformations are supplied. FINDINGS: Mild motion artifact degrades image quality. Appropriate parenchymal volume is noted. Webber-white differentiation is preserved. No edema or midline shift. No intra-axial or extra-axial hemorrhage. Ventricles are normal in size and configuration. Brainstem and cerebellum have a normal appearance. Calvarium unremarkable. Paranasal sinuses and mastoid air cells are well-pneumatized. Globes are intact. No retrobulbar abnormality. IMPRESSION: No CT evidence of an acute intracranial abnormality. Electronically signed by Britni Messina 10-24-2024 5:48 PM ECG Data Attestation: I personally reviewed and interpreted this ECG as follows: Additional Comments: Paced rhythm with a rate of 60. NM 194 QRS 72 QTc 408. No ectopy. MDM Narrative Cardiac monitoring: An order was placed for continuous cardiac monitoring. The monitor shows a rate of 60 with paced rhythm interpreted by de Labs show leukocytosis 16.82. INR 2.2. VBG unremarkable. proBNP elevated at 133. Urinalysis shows 1+ bacteria. BioFire negative. CT head unremarkable. Formal chest x-ray read shows cardiomegaly with mild vascular congestive changes. [facility] Impression & Plan AMS (altered mental status), Acute UTI, CHF (congestive heart failure) Discharge Plan Visit Data Chief Complaint: Illness Stated Complaint: CONFUSION, CHILLS, ED Provider: Johnny Barr Discharge Problem: AMS (altered mental status), Acute UTI, CHF (congestive heart failure) Patient Disposition: Admitted As Inpatient Discharge Instructions Interventions: ED Discharge Assessment Last Done: 10/24/24 22:45
[2024-10-25 08:05] LABS: Basophils # (auto) 0.05 K/uL (0.00-0.20); Basophils % (auto) 0.3 %; Eosinophils # (auto) 0.03 K/uL (0.00-0.50); Eosinophils % (auto) 0.2 %; Hematocrit (blood only) 42.2 % (37.0-47.0); Hemoglobin 14.4 g/dl (12.0-16.0); Immature Granulocytes # (auto) 0.08 K/uL (0.01-0.20); Immature Granulocytes % (auto) 0.5 %; Lymphocytes # (auto) 1.57 K/uL (1.20-3.40); Lymphocytes % (auto) 9.5 %; Mean Corpuscular Hemoglobin 30.6 pg (25.0-34.0); Mean Corpuscular Hgb Conc 34.1 g/dL (32.0-36.0); Mean Corpuscular Volume 89.8 fL (80.0-100.0); Mean Platelet Volume 10.2 fL (9.4-12.4); Monocytes # (auto) 1.18 K/uL (0.11-0.59); Monocytes % (auto) 7.1 %; Neutrophils # (auto) 13.68 K/uL (1.40-6.50); Neutrophils % (auto) 82.4 %; Platelet Count 226 K/uL (130-400); RDW Coefficient of Variation 14.5 % (11.5-14.5); RDW Standard Deviation 47.2 fL (36.4-46.3); White Blood Count 16.59 K/ul (4.8-10.8)
[2024-10-25 08:07] LABS: BUN Creatinine Ratio 18.9 (10-20); Calcium 8.6 mg/dl (8.6-10.3); Creatinine Clr Calc Pharmacy 31.9 ml/min; Potassium 3.9 mmol/L (3.5-5.1)
--- NOTE | 2024-10-25 08:26 | Cardiology Consultation ---
Date of Consultation October 25, 2024 Assessment & Plan (1) SOB (shortness of breath): (2) CHF (congestive heart failure): (3) Atrial fibrillation with RVR: (4) Pacemaker: (5) Acute UTI: (6) AMS (altered mental status): Plan Assessment: 84 year old female presents with altered mental status, and shortness of breath. history of P. A-fib, found to be in A-fib with RVR this AM. Plan: 1. Shortness of breath 2. CHF 3. Atrial fibrillation 4. Pacemaker (s/t tachybrady syndrome) -patient's shortness of breath is likely multi-factorial with some suggestion of hypervolemia, but also patient had converted into A-fib with RVR overnight likley precipitating the event. -Will obtain device interrogation to further assess recent a-fib burden. -chest xray does suggest mild congestion, Received one time dose of IV lasix in the ER with positive response. -Give 40mg IV lasix x1 dose today and reassess volume status in the AM. Patient has missed several doses of her home regimen which contributes to her volume overload. -Strict I&O, daily weights with standing scale -Close monitoring of renal function and serum electrolytes. Goal serum K > 4.0 and Serum mag > 2.0 -A-fib with rates as high as 160's. Continue Metoprolol tartrate 100mg by mouth twice daily, and start Amiodarone bolus/gtt. Continue to monitor closely on telemetry. -BP controlled. Continue losartan -continue Aspirin and Crestor as part of GDMT given history of CAD with prior bypass. 5. Acute UTI 6. Altered mental status -Patient is alert and oriented to person, place and time. Somewhat to event, but makes statements to suggest that she is not fully understanding everything. Review of records suggest this is different from her baseline. -Blood cultures and urine culture pending. continued management per primary team Case has been discussed with Dr. Mancilla. Further recommendations regarding plan of care as per his assessment. I spent a total of 40 minutes on the date of service in preparation, delivery, documentation of the care provided to the patient excluding any time spent in the performance of separately billed services. TEZ Mendieta [facility] Cardiology [facility] Supervising Physician Co-Signing Physician Notes Attending attestation: Case reviewed with the advanced practitioner. I have personally performed a history and physical examination on the patient. I have reviewed the advanced practitioner's documentation on the date of service referenced in note, and I agree with, and take responsibility for the plan of care. Subjective: Patient without subjective recommendations that her heart rate is elevated. Per review of her outpatient chart, this Appears consistent with her previous history. Exam: Cardiovascular irregular rhythm, no murmurs, no edema, mild abdominal bloating Data: Chest x-ray with suggestion of mild pulmonary edema INR was 2.2 on 10/24/2024 INR was 1.9 on 10/25/2024 EKG on presentation 10/24/2024 at 1714 revealed sinus rhythm with atrial pacing at 60 bpm. At 2:54 AM sinus rhythm was replaced by atrial fibrillation with rapid ventricular Response Liver function test normal on presentation, TSH normal on presentation Impression/ Plan: Acute heart failure with preserved ejection fraction, mildly volume overloaded Previously documented to have persistent atrial fibrillation but on recent pacer interrogation had been found to be in paroxysmal atrial fibrillation albeit with high atrial fibrillation burden. In August, mode of the pacemaker was changed from VVIR back to DDIR to accommodate for mode switching. Previous rhythm control strategies had been unsuccessful with unsuccessful treatment with sotalol. She was treated with amiodarone for several months in 2017 and discontinued due to intolerance and lack of efficacy. At present we will utilize amiodarone for acute rate control. With pacemaker in place will increase her metoprolol to succinate formulation and 150 mg twice daily. Anticipate INR is going to increase with the addition of amiodarone today, and therefore we will hold off on treatment with Coumadin today. No need to repeat echocardiogram as she recently had 1 within the last calendar month as outpatient. I spent a total of 25 minutes coordinating, documenting, and providing care for this patient excluding time spent in the performance of separately billed services or time spent by another provider. Reza Mancilla DO History of Present Illness Reason for Consultation: CHF [facility] Attending Physician: Joshua Gill MD History of Present Illness HPI: Patient is a 84 year old female that presents to the ER on 10/24/2024 with complaints of confusion, chills and shortness of breath. Upon seeing patient today, she denies that she was ever confused, but further conversation does demonstrate there is some lingering cognitive dysfunction. Denies any significant dietary indiscretion, but does report that she has missed several doses of her diuretic. Denies chest pain, pressure, palpitations, pre-syncope, syncope or edema. Abdomen has felt "full". Patient follows in our office with Dayton Momin PA-C, last seen 09/02/2024 with some ongoing dyspnea and evidence of hypervolemia. He had increased her furosemide from 20mg MWF to 40mg Daily, recommended that her pacemaker be reprogramed back to AAIR<=DDDR and obtain a resting echocardiogram. Past Medical and Surgical History: 1. Atherosclerotic coronary disease. 1. Status post coronary bypass grafting x 2 for accelerated angina pectoris in July 2002 (MARIE graft to the left anterior descending & saphenous vein graft to the left circumflex). 2. Progressive dyspnea on exertion and abnormal stress testing (showed ST depressions in II, III, aVF, V3 to V6 during the exercise portion of the study, converted to Lexiscan, with a small area of ischemia in mid anterior and apical anterior with normal EF and no wall motion abnormalities and no TID. 3. [place] [facility] [place] revealed a patent MARIE to LAD, patent SVG to left circumflex, and no other significant coronary stenosis identified which would be amenable to revascularization. 2. Diastolic congestive heart failure. 3. Atrial fibrillation. Failed Sotalol. Intolerant to amiodarone (initiated in 11/2016, discontinued March 2017). 4. Small splenic infarct on CT, January 2022 5. Chronic Coumadin anticoagulation 6. Sick Sinus Syndrome. Status post dual chamber pacemaker insertion in September 2007. Generator exchange on 11/25/2016 complicated by significant left subclavian pacemaker pocket hematoma as well as medication issues. 7. Hypertension. 8. Dyslipidemia, goal LDL below 70. 9. Noninsulin dependent diabetes mellitus with retinopathy, neuropathy, and renal insufficiency 10. Peripheral artery disease. Moderate left lower extremity arterial insufficiency. Followed by [facility] V[facility]. 11. Multinodular goiter 12. DISH (diffuse idiopathic skeletal hyperostosis) 13. Age-related osteoporosis 14. Psoriasis 15. Vitamin D deficiency 16. Irritable bowel syndrome 17. Epistaxis. 18. Colonoscopy with polypectomy 19. Three prior D&C's. 20. Appendectomy 21. Total abdominal hysterectomy 22. Hospitalized in January 2022 with symptomatic anemia. CTA of the chest with mild thickening of the distal esophagus raising concern for esophagitis. EGD on 02/17/2022 revealed a normal esophagus, mild gastritis, and duodenal erosions without bleeding in the bulb. Patient status post 1 unit packed red blood cells, 2 doses of IV venofer. Pantoprazole prescribed 23. ER evaluation on August 18, 2022, diagnosis of COVID-19 EKG on admission Atrial paced, Rate 60bpm Chest xray IMPRESSION: 1. Cardiomegaly. Bilateral mild prominent perihilar bronchovascular markings may denote mild vascular congestive changes, correlate clinically. 2. Obliterated left costophrenic angle, may be a small effusion/thickening. Head CT negative. WBC 16.59 Blood cultures and UA C&S pending BNP 133 Review of telemetry shows A-fib rates 120-160's. Patient had converted to A-fib at 0254 overnight. Allergies Allergy/AdvReac Type Severity Reaction Status Date / Time lisinopril Allergy Intermediate Cough Verified 10/24/24 20:56 cefazolin Allergy Unknown CEPHALEXIN-PT Verified 10/24/24 20:56 DOESN'T REMEMBER WHAT HAPPENED tetanus toxoid, adsorbed Allergy Unknown LOCAL Verified 10/24/24 20:56 REACTION/FEVER oxycodone AdvReac Unknown NAUSEA/STOMACH Verified 10/24/24 20:56 PAINS Home Medications Medication Instructions Recorded Confirmed Type cholecalciferol (vitamin D3) 125 5,000 units PO HS 06/25/19 10/24/24 History mcg (5,000 unit) capsule losartan 100 mg tablet 100 mg PO QAM 06/25/19 10/24/24 History nitroglycerin 0.4 mg sublingual 0.4 mg sublingual DIRECTED PRN 06/25/19 10/24/24 History tablet Chest Pain rosuvastatin 20 mg tablet 20 mg PO HS 06/25/19 10/24/24 History furosemide 20 mg tablet (Lasix) See Rx Instructions .Route .COMPLEX 10/24/19 10/24/24 History empagliflozin 25 mg tablet 25 mg PO QAM 08/31/20 10/24/24 History (Jardiance) potassium chloride 10 mEq See Rx Instructions .Route .COMPLEX 08/31/20 10/24/24 History tablet,extended release(part/cryst) warfarin 2 mg tablet 2 mg PO DIRECTED #0 tabs 09/03/20 10/24/24 Rx aspirin 81 mg tablet 81 mg PO 3XWK 02/15/22 10/24/24 History insulin glargine 100 unit/mL (3 24 unit subcut QAM 02/15/22 10/24/24 History mL) subcutaneous pen (Lantus Solostar U-100 Insulin) mecobalamin (vitamin B12) 1,000 1,000 mcg PO DAILY 02/15/22 10/24/24 History mcg chewable tablet (B12 Active) metformin 1,000 mg 24 hr 1,000 mg PO BIDM 02/15/22 10/24/24 History tablet,extended release (gastric reten.) metoprolol tartrate 100 mg tablet 100 mg PO BID 02/15/22 10/24/24 History pantoprazole 40 mg tablet,delayed 40 mg PO DAILY #30 tabs 02/19/22 10/24/24 Rx release (Protonix) Patient History Medical History Encounter for pre-operative examination History of pacemaker Surgical History Hx of CABG H/O: hysterectomy Hx of appendectomy Family History Aunt Diabetes Uncle Diabetes Daughter Diabetes Mother Hypertension Heart disease Father Hypertension Heart disease Social History Smoking Status: Never smoker Second Hand Exposure: No; Do You Dip or Chew Tobacco: No; Hx Alcohol Use: No Hx Substance Use: No Preferred Language: Maori Communication Ability: Effective Visual Impairment: No Limitations Hearing Ability: Normal 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 Required: No Beliefs That Will Affect Care: None marital status: Current Living Situation: Spouse current occupational status: retired Other Information That Helps Us Care for You: No Feels Safe at Home: Yes Safety Concerns: Feels Safe At This Time Assistive Devices: None Review of Systems Review of Systems: All systems reviewed & are unremarkable except as noted in HPI & below Physical Exam Constitutional: well developed and well nourished; no acute distress and not ill appearing Neck: normal visual inspection and trachea midline Respiratory: normal respiratory effort and + cough (has improved, dry non- productive); no respiratory distress, no labored breathing and no audible wheezes Auscultation: no crackles, no rales, no rhonchi and no wheezes Cardiovascular: Rate/Rhythm: + irregularly irregular Heart Sounds: normal S1, normal S2 and + murmur (+2/6 systolic ) Vessels: dorsalis pedis pulses present; no JVD Extremities: no edema Skin: no rashes, warm and dry Psychiatric: A+Ox3, euthymic affect Results & Data Vital Signs (Past 12 Hours) Vital Signs Temp Pulse Pulse Resp BP BP Pulse Ox 10/25/24 07:36 36.7 C 103 H 16 119/82 98 10/25/24 02:49 36.7 C 66 18 138/70 97 10/24/24 23:39 10/24/24 23:11 36.4 C L 70 144/76 H 97 10/24/24 22:45 60 18 174/79 H 98 10/24/24 22:00 60 18 174/79 H 98 10/24/24 21:08 60 O2 Del Method 10/25/24 07:36 Room Air 10/25/24 02:49 Room Air 10/24/24 23:39 Room Air 10/24/24 23:11 Room Air 10/24/24 22:45 Room Air 10/24/24 22:00 Room Air 10/24/24 21:08 Laboratory Results Cardiac Enzymes 10/24/24 Range/Units 17:11 AST 27 (13-39) U/L Troponin I High Sens 8.1 (0-14) pg/ml B-Natriuretic Peptide 133 H (0-100) pg/ml Coagulation 10/24/24 10/25/24 Range/Units 17:11 07:21 PT 22.5 H 19.4 H (9.0-12.0) Seconds APTT 38 H (21-31) Seconds B-Natriuretic Peptide 133 H (0-100) pg/ml CBC 10/24/24 10/25/24 Range/Units 18:12 07:21 WBC 16.82 H 16.59 H (4.8-10.8) K/ul RBC 3.90 L 4.70 (4.20-5.40) M/uL Hgb 11.9 L 14.4 (12.0-16.0) g/dl Hct 35.1 L 42.2 (37.0-47.0) % Plt Count 210 226 (130-400) K/uL Neut # (Auto) 13.39 H 13.68 H (1.40-6.50) K/uL Lymph # (Auto) 2.07 1.57 (1.20-3.40) K/uL Lee # (Auto) 1.20 H 1.18 H (0.11-0.59) K/uL Eos # (Auto) 0.01 0.03 (0.00-0.50) K/uL Baso # (Auto) 0.06 0.05 (0.00-0.20) K/uL Comprehensive Metabolic Panel 10/24/24 10/25/24 Range/Units 17:11 07:21 Sodium 134 L 138 (136-145) mmol/L Potassium 4.0 3.9 (3.5-5.1) mmol/L Chloride 102 104 (98-107) mmol/L Carbon Dioxide 23 25 (21-32) mmol/L BUN 21 24 H (6-23) mg/dl Creatinine 1.21 H 1.27 H (0.6-1.2) mg/dl Glucose 116 H 157 H (70-99(Fasting)) mg/dl Calcium 9.0 8.6 (8.6-10.3) mg/dl Direct Bilirubin 0.2 (0-0.2) mg/dl AST 27 (13-39) U/L ALT 28 (7-52) U/L Alkaline Phosphatase 48 (34-104) U/L Total Protein 7.7 (6.0-8.3) gm/dl Albumin 4.0 (3.4-5.0) gm/dl Intake and Output 10/24/24 10/25/24 10/25/24 22:59 06:59 14:59 Intake Total 300 / 300 100 / 100 Balance 300 / 300 100 / 100 Intake: IV 300 / 300 100 / 100 Acetaminophen 1,000 mg In 100 100 / 100 ml @ 400 mls/hr IV NOW STA Rx#: [id number] Aztreonam 2,000 mg In Dextrose 100 / 100 5% Mini-B 100 ml @ 100 mls/hr IV Q8H [facility] Rx#:[id number] Ciprofloxacin / D5w 400 mg In 200 / 200 200 ml @ 200 mls/hr IV NOW STA Rx#:[id number] Oral 0 / 0 Other: # Unmeasured Voids 3 Weight 74.7 kg 72.8 kg Weight Measurement Method Built in Bedscale Standing Scale Diagnostic Findings Echocardiogram 09/2024October 01, 2024 TTE Interpretation Summary (as per Dr. Gutiérrez): There was atrial fibrillation during the examination. The left ventricular cavity size is normal. The LV wall thickness is moderately increased (concentric). The septal motion is abnormal consistent with intrventricular conduction delay. The regional left ventricular wall motion is otherwise normal. The qualitative LV ejection fraction is 55-59% (normal). The left ventricular diastolic function is abnormal by 2-D findings. The left atrium is mildly enlarged. Moderate aortic valve sclerosis is present. Mild tricuspid regurgitation is present. There is no evidence of pulmonary hypertension. 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
[2024-10-25 08:31] LABS: INR 1.9 (0.9-1.1); Prothrombin Time 19.4 Seconds (9.0-12.0)
[2024-10-25] MEDS: AZTREONAM 2,000 MG in DEXTROSE 5% MINI-B 100 ML IV SCH (08:47)
[2024-10-25] MEDS ORDERED: AMIODARONE IV BOLUS & DRIP IV STA ×2 (09:37→09:50)
[2024-10-25] MEDS ORDERED: 0.2 MICRON FILTER SET 1 EACH IV STA (09:50)
[2024-10-25] MEDS ORDERED: STAT IV Infusion **Titration per Protocol STA (09:50)
[2024-10-25] MEDS: LANTUS PER UNIT CHARGE SQ SCH (10:09)
[2024-10-25] MEDS: CYANOCOBALAMIN (B-12) 500 MCG TABLET PO SCH (10:13)
[2024-10-25] MEDS: PANTOprazole 40 MG TAB PO SCH (10:14)
[2024-10-25] MEDS: METOPROLOL TARTRATE 100 MG TAB PO SCH (10:14)
[2024-10-25] MEDS: ASPIRIN 81 MG ECTAB PO SCH (10:14)
[2024-10-25] MEDS: AMIODARONE / D5W 150 MG/100 ML BAG IV STA (11:23)
[2024-10-25] MEDS: AMIODARONE / D5W 360 MG/200 ML BAG IV ONE (11:26)
[2024-10-25] MEDS: FUROSEMIDE 40 MG/4 ML VIAL IV ONE (12:57)
[2024-10-25] MEDS: LOSARTAN POTASSIUM 50 MG TAB PO SCH (12:57)
--- NOTE | 2024-10-25 13:21 | Electrocardiogram Report ---
Test Reason : Blood Pressure : */* mmHG Vent. Rate : 60 BPM Atrial Rate : 60 BPM P-R Int : 194 ms QRS Dur : 72 ms QT Int : 408 ms P-R-T Axes : 108 -12 99 degrees QTcB Int : 408 ms Atrial-paced rhythm Left ventricular hypertrophy with repolarization abnormality ( R in aVL ) Abnormal ECG When compared with ECG of 18-Aug-2022 19:04, Electronic atrial pacemaker has replaced Atrial fibrillation Vent. rate has decreased by 71 bpm Nonspecific T wave abnormality has replaced inverted T waves in Lateral leads Confirmed by Yanick Bonilla ([id number]) on 10/25/2024 1:21:25 PM Referred By: REFERRED SELF Confirmed By: Yanick Bonilla
--- NOTE | 2024-10-25 16:00 | Hospitalist Progress Note ---
Date of Service October 25, 2024 Assessment & Plan (1) CHF (congestive heart failure): Plan: History of diastolic dysfunction Underlying pulmonary hypertension Complicated by atrial fibrillation and suboptimal blood pressure control Has been receiving intravenous Lasix 40 mg daily monitor kidney function Strict intake output chart review maintain Appreciate cardiology input and recommendation She has been feeling better (2) SOB (shortness of breath): Plan: Shortness of breath secondary to subacute CHF (3) Acute UTI: Plan: Complicated UTI, no sepsis for now White count is elevated to more than 16 and UA was suggestive of infection Urine culture is showing 3 different types of organisms Will continue current antibiotic which is prolonged for about 3 to 5 days Denies any urinary symptoms (4) AMS (altered mental status): Plan: Presented with altered mental status likely multifactorial Complicated UTI and shortness of breath CHF Seems to be at her (5) Atrial fibrillation: Plan: hx CAD status post CABG SSS status post PPM on Coumadin, INR therapeutic History of atrial fibrillation and also has a pacemaker Remained in paced rhythm with controlled rate (6) Diabetes mellitus type 2 with complications: Plan: DM2 on oral medications, suboptimal control as of recent hemoglobin A1c of 7.6 in August 2024 Basal bolus insulin, ISS BG goal 1 10-1 40, carb count coverage (7) Low back pain: Plan: Complains low back pain without radiation Pain seems to be stable with current medications (8) HTN (hypertension): Plan: Blood pressure remains on the lower side of normal at 102/65 Hyperlipidemia/statin intolerance CRI, creatinine better than last outpatient baseline. DVT prophylaxis. Coumadin INR goal between 2 and 3 DNR as per patient prior directives. Patient request for to be given updates regarding care. Mr. Trent Almanza, contact numbers [phone]. Admission and Anticipated Discharge Date Admission Date: October 24, 2024 Subjective 10/25/2024 The patient was seen and examined in telemetry unit She was admitted with shortness of breath and also confusion Noted to have UTI and also A-fib with RVR She complains to me to have back pain but does not have any palpitation, chest pain or shortness of breath Review of Systems Review of Systems: All systems reviewed and are unremarkable except as noted below Physical Exam Physical Exam: Lying in bed without any acute distress Constitutional: well developed, well nourished and average body habitus; not ill appearing Eyes: PERRL, conjunctivae normal, anicteric sclerae ENMT: external ear and nose normal, oropharynx normal Neck: trachea midline, no thyromegaly Respiratory: no respiratory distress Auscultation: lungs clear to auscultation bilaterally; no crackles Cardiovascular: Rate/Rhythm: regular rate and regular rhythm; not bradycardic Heart Sounds: normal S1 and normal S2; no murmur Extremities: no edema Gastrointestinal (Abdomen): Inspection/Auscultation: normal bowel sounds; abdomen not distended Percussion/Palpation: abdomen soft; abdomen nontender Musculoskeletal: Lower back pain without radiation Neurologic: normal touch/pain/proprioception and moves all extremities; no focal motor deficits Lymphatic: no cervical or axillary lymphadenopathy Results & Data Results & Data Vital Signs (Past 12 Hours) Vital Signs Temp Pulse Resp BP Pulse Ox O2 Del Method 10/25/24 14:59 37.1 C 85 18 102/65 97 Room Air 10/25/24 10:59 37.7 C H 113 H 18 127/81 94 Room Air 10/25/24 10:13 113 H 10/25/24 07:36 36.7 C 103 H 16 119/82 98 Room Air Laboratory Results Short CBC 10/24/24 10/25/24 Range/Units 18:12 07:21 WBC 16.82 H 16.59 H (4.8-10.8) K/ul Hgb 11.9 L 14.4 (12.0-16.0) g/dl Hct 35.1 L 42.2 (37.0-47.0) % Plt Count 210 226 (130-400) K/uL BMP 10/24/24 10/25/24 17:11 07:21 Sodium 134 L 138 Potassium 4.0 3.9 Chloride 102 104 Carbon Dioxide 23 25 BUN 21 24 H Creatinine 1.21 H 1.27 H Glucose 116 H 157 H Calcium 9.0 8.6 Liver Function 10/24/24 Range/Units 17:11 Total Bilirubin 0.6 (0.2-1.0) mg/dl Direct Bilirubin 0.2 (0-0.2) mg/dl AST 27 (13-39) U/L ALT 28 (7-52) U/L Alkaline Phosphatase 48 (34-104) U/L Albumin 4.0 (3.4-5.0) gm/dl Urine 10/24/24 Range/Units 19:18 Urine Color Yellow Urine Appearance Clear (Clear) Urine pH 7.5 (4.5-7.5) Ur Specific [place] 1.027 (1.000-1.030) Urine Protein 1+ H (Negative) Urine Glucose (UA) 3+ H (Negative) Medications Administered Current Inpatient Medications Acetaminophen (Acetaminophen 325 Mg Tab) 650 mg PO QID PRN PRN Reason: pain/fever Stop: 11/23/24 23:19 Aspirin (Aspirin 81 Mg Ectab) 81 mg PO MoWeFr@0900 [facility] Stop: 11/24/24 08:59 Last Admin: 10/25/24 10:14 Dose: 81 mg Cyanocobalamin (Cyanocobalamin (B-12) 500 Mcg Tablet) 1,000 mcg PO DAILY [facility] Stop: 11/24/24 08:59 Last Admin: 10/25/24 10:13 Dose: 1,000 mcg Dextrose (Dextrose 50% 50 Ml Syringe) 25 - 50 ml IV UD PRN; Protocol PRN Reason: Hypoglycemia Protocol Stop: 11/23/24 23:10 Glucagon (Glucagon For Inj 1 Mg Vial) 1 mg SQ UD PRN; Protocol PRN Reason: Hypoglycemia Protocol Stop: 11/23/24 23:10 Glucose (Glucose 40% Gel 15 Gm Tube) 15 - 30 gm PO UD PRN; Protocol PRN Reason: Hypoglycemia Protocol Stop: 11/23/24 23:10 Glucose (Glucose 10 Tab/Tube) 4 - 8 tab PO UD PRN; Protocol PRN Reason: Hypoglycemia Protocol Stop: 11/23/24 23:10 Aztreonam 2,000 mg/ Dextrose 100 mls @ 100 mls/hr IV Q8H [facility] Stop: 11/04/24 07:59 Last Infusion: 10/25/24 10:16 Dose: Infused Amiodarone HCl/Dextrose (Nexterone / D5w) 360 mg in 200 mls @ 16.667 mls/hr IV .Q12H [facility] Stop: 11/24/24 15:59 Insulin Aspart (Insulin Aspart Per Unit Charge) 0 units SC ACHS [facility] Stop: 11/23/24 23:10 Last Admin: 10/25/24 12:14 Dose: 5 units Insulin Glargine (Lantus Per Unit Charge) 20 units SQ QAM [facility] Stop: 11/24/24 08:59 Last Admin: 10/25/24 10:09 Dose: 20 units Losartan Potassium (Losartan Potassium 50 Mg Tab) 100 mg PO QAM [facility] Stop: 11/24/24 08:59 Last Admin: 10/25/24 12:57 Dose: 100 mg Metoprolol Succinate (Metoprolol Succ 50mg Ext Rel Tab) 150 mg PO BID [facility] Stop: 11/24/24 20:59 Miscellaneous (Carbohydrates For Hypoglycemia ) 15 - 30 gm PO UD PRN PRN Reason: Hypoglycemia Protocol Stop: 11/23/24 23:10 Pantoprazole Sodium (Pantoprazole 40 Mg Tab) 40 mg PO DAILY [facility] Stop: 11/24/24 08:59 Last Admin: 10/25/24 10:14 Dose: 40 mg Rosuvastatin Calcium (Rosuvastatin Calcium 20 Mg Tab) 20 mg PO HS [facility] Stop: 11/24/24 20:59 (5) Atrial fibrillation Atrial fibrillation type: longstanding persistent Qualified Code(s): I48.11 - Longstanding persistent atrial fibrillation
[2024-10-25] MEDS: AMIODARONE / D5W 360 MG/200 ML BAG IV SCH (16:47)
[2024-10-25] MEDS: METOPROLOL SUCC 50MG EXT REL TAB PO SCH (20:31)
[2024-10-25] MEDS: ROSUVASTATIN CALCIUM 20 MG TAB PO SCH (20:31)
[2024-10-26 07:52] LABS: Basophils # (auto) 0.05 K/uL (0.00-0.20); Basophils % (auto) 0.4 %; Eosinophils # (auto) 0.15 K/uL (0.00-0.50); Eosinophils % (auto) 1.2 %; Hematocrit (blood only) 41.7 % (37.0-47.0); Hemoglobin 14.4 g/dl (12.0-16.0); Immature Granulocytes # (auto) 0.03 K/uL (0.01-0.20); Immature Granulocytes % (auto) 0.2 %; Lymphocytes # (auto) 1.98 K/uL (1.20-3.40); Lymphocytes % (auto) 16.2 %; Mean Corpuscular Hemoglobin 30.8 pg (25.0-34.0); Mean Corpuscular Hgb Conc 34.5 g/dL (32.0-36.0); Mean Corpuscular Volume 89.1 fL (80.0-100.0); Monocytes # (auto) 0.99 K/uL (0.11-0.59); Monocytes % (auto) 8.1 %; Neutrophils # (auto) 9.05 K/uL (1.40-6.50); Neutrophils % (auto) 73.9 %; Platelet Count 233 K/uL (130-400); RDW Coefficient of Variation 14.6 % (11.5-14.5); RDW Standard Deviation 47.7 fL (36.4-46.3); Red Blood Count 4.68 M/uL (4.20-5.40); White Blood Count 12.25 K/ul (4.8-10.8)
[2024-10-26 08:15] LABS: INR 1.4 (0.9-1.1)
[2024-10-26 08:21] LABS: BUN Creatinine Ratio 21.6 (10-20); Calcium 8.2 mg/dl (8.6-10.3); Magnesium 2.2 mg/dl (1.7-2.4); Potassium 4.1 mmol/L (3.5-5.1)
--- NOTE | 2024-10-26 12:27 | Cardiology Progress Note ---
Date of Service October 26, 2024 Assessment & Plan (1) SOB (shortness of breath): (2) CHF (congestive heart failure): (3) Atrial fibrillation with RVR: (4) Pacemaker: (5) Acute UTI: (6) AMS (altered mental status): Plan Patient with known paroxysmal atrial fibrillation. High AF burden on pacer checks. In past has not been symptomatic from an AF stanpoint. Was on amiodarone in 2017 which was stopped after a few months due to intolerance. Amiodarone infusion used for rate control acutely on 10/25, still in AF , but rates down to 90s. DC IV amiodarone Metoprolol changed to succinate, at increased dose of 150 mg BID. INR 1.4, Resume coumadin , 5 mg today. Continue aztreonam, no growth on blood and urine cultures thus far. Admission and Anticipated Discharge Date Admission Date: October 24, 2024 Results & Data Vital Signs (Past 12 Hours) Vital Signs Temp Pulse Pulse Resp BP BP Pulse Ox 10/26/24 11:15 64 10/26/24 11:07 36.6 C 78 18 115/66 97 10/26/24 08:00 10/26/24 07:55 36.6 C 77 18 116/71 96 10/26/24 02:18 37.1 C 84 15 121/83 95 Pulse Ox O2 Del Method O2 Del Method 10/26/24 11:15 10/26/24 11:07 Room Air 10/26/24 08:00 97 Room Air 10/26/24 07:55 Room Air 10/26/24 02:18 Room Air
--- NOTE | 2024-10-26 13:49 | Hospitalist Progress Note ---
Date of Service October 26, 2024 Assessment & Plan (1) CHF (congestive heart failure): Plan: History of diastolic dysfunction Underlying pulmonary hypertension Complicated by atrial fibrillation and suboptimal blood pressure control Has been receiving intravenous Lasix 40 mg daily monitor kidney function Strict intake output chart review maintain Appreciate cardiology input and recommendation She has been feeling better Clinically does not have any evidence of fluid overload and/or CHF and she has not been getting any more Lasix for now (2) Atrial fibrillation: Plan: hx CAD status post CABG and paroxysmal atrial fibrillation SSS status post PPM on Coumadin, INR therapeutic History of atrial fibrillation and also has a pacemaker Remained in paced rhythm with controlled rate she also on amiodarone in 2017 which was discontinued due to intolerance Started on intravenous amiodarone during this admission and the A-fib rate is well-controlled and that amiodarone infusion has been discontinued by the generator operator straight bevel gear She has been on increased dose of metoprolol succinate at 150 mg twice daily (3) SOB (shortness of breath): Plan: Shortness of breath secondary to subacute CHF (4) Acute UTI: Plan: Complicated UTI, no sepsis for now White count is elevated to more than 16 and UA was suggestive of infection Urine culture is showing 3 different types of organisms Will continue current antibiotic which is prolonged for about 3 to 5 days Denies any urinary symptoms No definite urine infection as per criteria Will discontinue ertapenem after 3 days of therapy (5) AMS (altered mental status): Plan: Presented with altered mental status likely multifactorial Complicated UTI and shortness of breath CHF Seems to be at her (6) Diabetes mellitus type 2 with complications: Plan: DM2 on oral medications, suboptimal control as of recent hemoglobin A1c of 7.6 in August 2024 Basal bolus insulin, ISS BG goal 1 10-1 40, carb count coverage (7) Low back pain: Plan: Complains low back pain without radiation Pain seems to be stable with current medications Denies any back pain and radiculopathy (8) HTN (hypertension): Plan: Blood pressure remains on the lower side of normal at 102/65 Hyperlipidemia/statin intolerance CRI, creatinine better than last outpatient baseline. DVT prophylaxis. Coumadin INR goal between 2 and 3 DNR as per patient prior directives. Patient request for to be given updates regarding care. Mr. Trent Almanza, contact numbers [phone]. Admission and Anticipated Discharge Date Admission Date: October 24, 2024 Subjective 10/25/2024 The patient was seen and examined in telemetry unit She was admitted with shortness of breath and also confusion Noted to have UTI and also A-fib with RVR She complains to me to have back pain but does not have any palpitation, chest pain or shortness of breath 10/26/2024 The patient was seen and examined in telemetry unit She has been feeling much better today and denies any back pain Does not have any chest pain and/or palpitation and denies any shortness of breath Review of Systems Review of Systems: All systems reviewed and are unremarkable except as noted below Physical Exam Physical Exam: Lying in bed without any acute distress Constitutional: well developed, well nourished and average body habitus; not ill appearing Eyes: PERRL, conjunctivae normal, anicteric sclerae ENMT: external ear and nose normal, oropharynx normal Neck: trachea midline, no thyromegaly Respiratory: no respiratory distress Auscultation: lungs clear to auscultation bilaterally; no crackles Cardiovascular: Rate/Rhythm: regular rate, regular rhythm and + irregularly irregular; not bradycardic Heart Sounds: normal S1 and normal S2; no murmur Extremities: no edema Gastrointestinal (Abdomen): Inspection/Auscultation: normal bowel sounds; abdomen not distended Percussion/Palpation: abdomen soft; abdomen nontender Neurologic: normal touch/pain/proprioception and moves all extremities; no focal motor deficits Lymphatic: no cervical or axillary lymphadenopathy Results & Data Results & Data Vital Signs (Past 12 Hours) Vital Signs Temp Pulse Pulse Resp BP BP Pulse Ox 10/26/24 11:15 64 10/26/24 11:07 36.6 C 78 18 115/66 97 10/26/24 08:00 10/26/24 07:55 36.6 C 77 18 116/71 96 10/26/24 02:18 37.1 C 84 15 121/83 95 Pulse Ox O2 Del Method O2 Del Method 10/26/24 11:15 10/26/24 11:07 Room Air 10/26/24 08:00 97 Room Air 10/26/24 07:55 Room Air 10/26/24 02:18 Room Air Laboratory Results Short CBC 10/26/24 Range/Units 07:26 WBC 12.25 H (4.8-10.8) K/ul Hgb 14.4 (12.0-16.0) g/dl Hct 41.7 (37.0-47.0) % Plt Count 233 (130-400) K/uL [facility] 10/26/24 07:26 Sodium 137 Potassium 4.1 Chloride 106 Carbon Dioxide 23 BUN 32 H Creatinine 1.48 H Glucose 172 H Calcium 8.2 L Diagnostic Findings Short CBC 10/26/24 Range/Units 07:26 WBC 12.25 H (4.8-10.8) K/ul Hgb 14.4 (12.0-16.0) g/dl Hct 41.7 (37.0-47.0) % Plt Count 233 (130-400) K/uL [facility] 10/26/24 07:26 Sodium 137 Potassium 4.1 Chloride 106 Carbon Dioxide 23 BUN 32 H Creatinine 1.48 H Glucose 172 H Calcium 8.2 L Medications Administered Current Inpatient Medications Acetaminophen (Acetaminophen 325 Mg Tab) 650 mg PO QID PRN PRN Reason: pain/fever Stop: 11/23/24 23:19 Aspirin (Aspirin 81 Mg Ectab) 81 mg PO MoWeFr@0900 [facility] Stop: 11/24/24 08:59 Last Admin: 10/25/24 10:14 Dose: 81 mg Cyanocobalamin (Cyanocobalamin (B-12) 500 Mcg Tablet) 1,000 mcg PO DAILY [facility] Stop: 11/24/24 08:59 Last Admin: 10/26/24 08:36 Dose: 1,000 mcg Dextrose (Dextrose 50% 50 Ml Syringe) 25 - 50 ml IV UD PRN; Protocol PRN Reason: Hypoglycemia Protocol Stop: 11/23/24 23:10 Glucagon (Glucagon For Inj 1 Mg Vial) 1 mg SQ UD PRN; Protocol PRN Reason: Hypoglycemia Protocol Stop: 11/23/24 23:10 Glucose (Glucose 40% Gel 15 Gm Tube) 15 - 30 gm PO UD PRN; Protocol PRN Reason: Hypoglycemia Protocol Stop: 11/23/24 23:10 Glucose (Glucose 10 Tab/Tube) 4 - 8 tab PO UD PRN; Protocol PRN Reason: Hypoglycemia Protocol Stop: 11/23/24 23:10 Aztreonam 2,000 mg/ Dextrose 100 mls @ 100 mls/hr IV Q12H [facility] Stop: 11/04/24 07:59 Insulin Aspart (Insulin Aspart Per Unit Charge) 0 units SC ACHS [facility] Stop: 11/23/24 23:10 Last Admin: 10/26/24 12:20 Dose: 6 units Insulin Glargine (Lantus Per Unit Charge) 20 units SQ QAM [facility] Stop: 11/24/24 08:59 Last Admin: 10/26/24 08:44 Dose: 20 units Losartan Potassium (Losartan Potassium 50 Mg Tab) 100 mg PO QAM [facility] Stop: 11/24/24 08:59 Last Admin: 10/26/24 08:36 Dose: 100 mg Metoprolol Succinate (Metoprolol Succ 50mg Ext Rel Tab) 150 mg PO BID [facility] Stop: 11/24/24 20:59 Last Admin: 10/26/24 08:36 Dose: 150 mg Miscellaneous (Carbohydrates For Hypoglycemia ) 15 - 30 gm PO UD PRN PRN Reason: Hypoglycemia Protocol Stop: 11/23/24 23:10 Pantoprazole Sodium (Pantoprazole 40 Mg Tab) 40 mg PO DAILY [facility] Stop: 11/24/24 08:59 Last Admin: 10/26/24 08:37 Dose: 40 mg Rosuvastatin Calcium (Rosuvastatin Calcium 20 Mg Tab) 20 mg PO HS [facility] Stop: 11/24/24 20:59 Last Admin: 10/25/24 20:31 Dose: 20 mg (2) Atrial fibrillation Atrial fibrillation type: longstanding persistent Qualified Code(s): I48.11 - Longstanding persistent atrial fibrillation
[2024-10-26] MEDS: WARFARIN SOD 5 MG TAB PO ONE (14:26)
[2024-10-26] MEDS: AZTREONAM 2,000 MG in DEXTROSE 5% MINI-B 100 ML IV SCH (21:10)
[2024-10-27 06:28] LABS: BUN Creatinine Ratio 26.1 (10-20); Calcium 8.5 mg/dl (8.6-10.3); Creatinine Clr Calc Pharmacy 29.9 ml/min; Magnesium 2.2 mg/dl (1.7-2.4); Potassium 4.2 mmol/L (3.5-5.1)
[2024-10-27 06:30] LABS: Basophils # (auto) 0.05 K/uL (0.00-0.20); Basophils % (auto) 0.5 %; Eosinophils # (auto) 0.22 K/uL (0.00-0.50); Eosinophils % (auto) 2.4 %; Hematocrit (blood only) 43.3 % (37.0-47.0); Hemoglobin 14.4 g/dl (12.0-16.0); Immature Granulocytes # (auto) 0.03 K/uL (0.01-0.20); Immature Granulocytes % (auto) 0.3 %; Lymphocytes # (auto) 2.11 K/uL (1.20-3.40); Mean Corpuscular Hemoglobin 30.1 pg (25.0-34.0); Mean Corpuscular Hgb Conc 33.3 g/dL (32.0-36.0); Mean Corpuscular Volume 90.6 fL (80.0-100.0); Mean Platelet Volume 10.1 fL (9.4-12.4); Monocytes # (auto) 0.83 K/uL (0.11-0.59); Neutrophils # (auto) 5.94 K/uL (1.40-6.50); Neutrophils % (auto) 64.8 %; Platelet Count 235 K/uL (130-400); RDW Coefficient of Variation 14.6 % (11.5-14.5); RDW Standard Deviation 48.8 fL (36.4-46.3); Red Blood Count 4.78 M/uL (4.20-5.40); White Blood Count 9.18 K/ul (4.8-10.8)
[2024-10-27 06:44] LABS: INR 1.4 (0.9-1.1); Prothrombin Time 14.4 Seconds (9.0-12.0)
--- NOTE | 2024-10-27 13:15 | Hospitalist Progress Note ---
Date of Service October 27, 2024 Assessment & Plan (1) CHF (congestive heart failure): Plan: History of diastolic dysfunction Underlying pulmonary hypertension Complicated by atrial fibrillation and suboptimal blood pressure control Has been receiving intravenous Lasix 40 mg daily monitor kidney function Strict intake output chart review maintain Appreciate cardiology input and recommendation She has been feeling better Clinically does not have any evidence of fluid overload and/or CHF and she has not been getting any more Lasix for now Denies any shortness of breath at rest and cumulative fluid balance so far is positive [id number] (2) Atrial fibrillation: Plan: hx CAD status post CABG and paroxysmal atrial fibrillation SSS status post PPM on Coumadin, INR therapeutic History of atrial fibrillation and also has a pacemaker Remained in paced rhythm with controlled rate she also on amiodarone in 2017 which was discontinued due to intolerance Started on intravenous amiodarone during this admission and the A-fib rate is well-controlled and that amiodarone infusion has been discontinued by the research professor of biostatistics She has been on increased dose of metoprolol succinate at 150 mg twice daily Rate is controlled around 70s (3) SOB (shortness of breath): Plan: Shortness of breath secondary to subacute CHF (4) Acute UTI: Plan: Complicated UTI, no sepsis for now White count is elevated to more than 16 and UA was suggestive of infection Urine culture is showing 3 different types of organisms Will continue current antibiotic which is prolonged for about 3 to 5 days Denies any urinary symptoms No definite urine infection as per criteria Will discontinue ertapenem after 3 days of therapy Will discontinue the antibiotic (5) AMS (altered mental status): Plan: Presented with altered mental status likely multifactorial Complicated UTI and shortness of breath CHF Seems to be at her baseline (6) Diabetes mellitus type 2 with complications: Plan: DM2 on oral medications, suboptimal control as of recent hemoglobin A1c of 7.6 in August 2024 Basal bolus insulin, ISS BG goal 1 10-1 40, carb count coverage (7) Low back pain: Plan: Complains low back pain without radiation Pain seems to be stable with current medications Denies any back pain and radiculopathy (8) HTN (hypertension): Plan: Blood pressure remains on the lower side of normal at 102/65 Hyperlipidemia/statin intolerance CRI, creatinine better than last outpatient baseline. DVT prophylaxis. Coumadin INR goal between 2 and 3 DNR as per patient prior directives. Patient request for to be given updates regarding care. Mr. Trent Almanza, contact numbers [phone]. Admission and Anticipated Discharge Date Admission Date: October 24, 2024 Subjective 10/25/2024 The patient was seen and examined in telemetry unit She was admitted with shortness of breath and also confusion Noted to have UTI and also A-fib with RVR She complains to me to have back pain but does not have any palpitation, chest pain or shortness of breath 10/26/2024 The patient was seen and examined in telemetry unit She has been feeling much better today and denies any back pain Does not have any chest pain and/or palpitation and denies any shortness of breath 10/27/2024 The patient was seen and examined in telemetry unit She has some redness involving the left lower extremity which has improved since yesterday Denies any shortness of breath or palpitation or any chest pain Heart rate is controlled with current medication Review of Systems Review of Systems: All systems reviewed and are unremarkable except as noted below Physical Exam Physical Exam: Lying in bed without any acute distress Constitutional: well developed, well nourished and average body habitus; not ill appearing Eyes: PERRL, conjunctivae normal, anicteric sclerae ENMT: external ear and nose normal, oropharynx normal Neck: trachea midline, no thyromegaly Respiratory: no respiratory distress Auscultation: lungs clear to auscultation bilaterally; no crackles Cardiovascular: Rate/Rhythm: regular rate, regular rhythm and + irregularly irregular; not bradycardic Heart Sounds: normal S1 and normal S2; no murmur Extremities: no edema Gastrointestinal (Abdomen): Inspection/Auscultation: normal bowel sounds; abdomen not distended Percussion/Palpation: abdomen soft; abdomen nontender Neurologic: normal touch/pain/proprioception and moves all extremities; no focal motor deficits Lymphatic: no cervical or axillary lymphadenopathy Results & Data Results & Data Vital Signs (Past 12 Hours) Vital Signs Temp Pulse Pulse Resp BP Pulse Ox Pulse Ox 10/27/24 10:38 36.4 C L 71 18 138/80 98 10/27/24 08:16 36.5 C 75 17 129/77 98 10/27/24 08:00 98 10/27/24 07:01 60 10/27/24 03:01 36.8 C 72 18 134/89 96 O2 Del Method O2 Del Method 10/27/24 10:38 Room Air 10/27/24 08:16 Room Air 10/27/24 08:00 Room Air 10/27/24 07:01 10/27/24 03:01 Room Air Laboratory Results Short CBC 10/27/24 Range/Units 05:23 WBC 9.18 (4.8-10.8) K/ul Hgb 14.4 (12.0-16.0) g/dl Hct 43.3 (37.0-47.0) % Plt Count 235 (130-400) K/uL [facility] 10/27/24 05:23 Sodium 138 Potassium 4.2 Chloride 107 Carbon Dioxide 24 BUN 35 H Creatinine 1.34 H Glucose 113 H Calcium 8.5 L Medications Administered Current Inpatient Medications Acetaminophen (Acetaminophen 325 Mg Tab) 650 mg PO QID PRN PRN Reason: pain/fever Stop: 11/23/24 23:19 Aspirin (Aspirin 81 Mg Ectab) 81 mg PO MoWeFr@0900 [facility] Stop: 11/24/24 08:59 Last Admin: 10/25/24 10:14 Dose: 81 mg Cyanocobalamin (Cyanocobalamin (B-12) 500 Mcg Tablet) 1,000 mcg PO DAILY [facility] Stop: 11/24/24 08:59 Last Admin: 10/27/24 08:34 Dose: 1,000 mcg Dextrose (Dextrose 50% 50 Ml Syringe) 25 - 50 ml IV UD PRN; Protocol PRN Reason: Hypoglycemia Protocol Stop: 11/23/24 23:10 Glucagon (Glucagon For Inj 1 Mg Vial) 1 mg SQ UD PRN; Protocol PRN Reason: Hypoglycemia Protocol Stop: 11/23/24 23:10 Glucose (Glucose 40% Gel 15 Gm Tube) 15 - 30 gm PO UD PRN; Protocol PRN Reason: Hypoglycemia Protocol Stop: 11/23/24 23:10 Glucose (Glucose 10 Tab/Tube) 4 - 8 tab PO UD PRN; Protocol PRN Reason: Hypoglycemia Protocol Stop: 11/23/24 23:10 Aztreonam 2,000 mg/ Dextrose 100 mls @ 100 mls/hr IV Q12H [facility] Stop: 11/04/24 07:59 Last Infusion: 10/27/24 09:42 Dose: Infused Insulin Aspart (Insulin Aspart Per Unit Charge) 0 units SC ACHS [facility] Stop: 11/23/24 23:10 Last Admin: 10/27/24 12:18 Dose: 4 units Insulin Glargine (Lantus Per Unit Charge) 20 units SQ QAM [facility] Stop: 11/24/24 08:59 Last Admin: 10/27/24 08:23 Dose: 20 units Losartan Potassium (Losartan Potassium 50 Mg Tab) 100 mg PO QAM [facility] Stop: 11/24/24 08:59 Last Admin: 10/27/24 08:34 Dose: 100 mg Metoprolol Succinate (Metoprolol Succ 50mg Ext Rel Tab) 150 mg PO BID [facility] Stop: 11/24/24 20:59 Last Admin: 10/27/24 08:33 Dose: 150 mg Miscellaneous (Carbohydrates For Hypoglycemia ) 15 - 30 gm PO UD PRN PRN Reason: Hypoglycemia Protocol Stop: 11/23/24 23:10 Pantoprazole Sodium (Pantoprazole 40 Mg Tab) 40 mg PO DAILY [facility] Stop: 11/24/24 08:59 Last Admin: 10/27/24 08:34 Dose: 40 mg Rosuvastatin Calcium (Rosuvastatin Calcium 20 Mg Tab) 20 mg PO HS [facility] Stop: 11/24/24 20:59 Last Admin: 10/26/24 21:13 Dose: 20 mg (2) Atrial fibrillation Atrial fibrillation type: longstanding persistent Qualified Code(s): I48.11 - Longstanding persistent atrial fibrillation
--- NOTE | 2024-10-27 13:51 | Cardiology Progress Note ---
Date of Service October 27, 2024 Assessment & Plan (1) SOB (shortness of breath): (2) CHF (congestive heart failure): (3) Atrial fibrillation with RVR: (4) Pacemaker: (5) Acute UTI: (6) AMS (altered mental status): Plan Patient with known paroxysmal atrial fibrillation. High AF burden on pacer checks. In past has not been symptomatic from an AF standpoint. Was on amiodarone in 2017 which was stopped after a few months due to intolerance. Amiodarone infusion used for rate control acutely on 10/25, still in AF , but rates down to 70s. IV amiodarone stopped on 10/26/24. Metoprolol changed to succinate, at increased dose of 150 mg BID. INR 1.4, coumadin , 5 mg today. Home dose 2 mg every Monday, 1 mg other days . Check INR 10/28, Start heparin bridge without bolus. Goal INR 2-3. Continue aztreonam for suspected left lower leg cellulitis, no growth on blood and urine cultures thus far. Furosemide 20 mg IV x 1 now. Furosemide 40 mg PO daily 10/28. On 40 mg alternating with 20 mg at home. Cardiology to sign off. Call with questions or concerns. Admission and Anticipated Discharge Date Admission Date: October 24, 2024 Subjective Patient seen in cardiology follow up. Notes redness and soreness of left lower leg. Mental status improved compared to several days ago. Telemetry reveals ongoing atrial fibrillation, however, rates improved to the 70s with occasional V-pacing. Physical Exam Constitutional: well developed and well nourished; no acute distress and not ill appearing Neck: normal visual inspection and trachea midline Respiratory: normal respiratory effort and + cough (has improved, dry non- productive); no respiratory distress, no labored breathing and no audible wheezes Auscultation: no crackles, no rales, no rhonchi and no wheezes Cardiovascular: Rate/Rhythm: + irregularly irregular Heart Sounds: normal S1, normal S2 and + murmur (+2/6 systolic ) Vessels: dorsalis pedis pulses present; no JVD Extremities: no edema pacer pocket without erhythema. Skin: no rashes, warm and dry Psychiatric: A+Ox3, euthymic affect Results & Data Vital Signs (Past 12 Hours) Vital Signs Temp Pulse Pulse Resp BP Pulse Ox Pulse Ox 10/27/24 10:38 36.4 C L 71 18 138/80 98 10/27/24 08:16 36.5 C 75 17 129/77 98 10/27/24 08:00 98 10/27/24 07:01 60 10/27/24 03:01 36.8 C 72 18 134/89 96 O2 Del Method O2 Del Method 10/27/24 10:38 Room Air 10/27/24 08:16 Room Air 10/27/24 08:00 Room Air 10/27/24 07:01 10/27/24 03:01 Room Air Laboratory Results Coagulation 10/27/24 Range/Units 05:23 PT 14.4 H (9.0-12.0) Seconds CBC 10/27/24 Range/Units 05:23 WBC 9.18 (4.8-10.8) K/ul RBC 4.78 (4.20-5.40) M/uL Hgb 14.4 (12.0-16.0) g/dl Hct 43.3 (37.0-47.0) % Plt Count 235 (130-400) K/uL Neut # (Auto) 5.94 (1.40-6.50) K/uL Lymph # (Auto) 2.11 (1.20-3.40) K/uL [place] # (Auto) 0.83 H (0.11-0.59) K/uL Eos # (Auto) 0.22 (0.00-0.50) K/uL Baso # (Auto) 0.05 (0.00-0.20) K/uL Comprehensive Metabolic Panel 10/27/24 Range/Units 05:23 Sodium 138 (136-145) mmol/L Potassium 4.2 (3.5-5.1) mmol/L Chloride 107 (98-107) mmol/L Carbon Dioxide 24 (21-32) mmol/L BUN 35 H (6-23) mg/dl Creatinine 1.34 H (0.6-1.2) mg/dl Glucose 113 H (70-99(Fasting)) mg/dl Calcium 8.5 L (8.6-10.3) mg/dl Intake and Output 10/26/24 10/27/24 10/27/24 22:59 06:59 14:59 Intake Total 420 / 720 220 / 220 Balance 420 / 720 220 / 220 Intake: IV 300 / 400 100 / 100 Amiodarone / D5w 360 mg In 200 200 / 200 ml @ 0.5 MG/MIN 16.667 mls/hr IV .Q12H [facility] Rx#:[id number] Aztreonam 2,000 mg In Dextrose 100 / 100 100 / 100 5% Mini-B 100 ml @ 100 mls/hr IV Q12H [facility] Rx#:[id number] Oral 120 / 320 120 / 120 Other: # Unmeasured Voids 1 1 Weight 68.7 kg Weight Measurement Method Standing Scale
[2024-10-27] MEDS: WARFARIN SOD 5 MG TAB PO SCH (15:24)
[2024-10-27] MEDS: FUROSEMIDE INJ 20 MG/2 ML VIAL IV ONE (15:24)
[2024-10-27] MEDS: Heparin IV Adult Wt-Based Standard *NO* INITIAL Bolus Protocol IV STA (15:37)
[2024-10-27] MEDS: HEPARIN SODIUM/DEXTROSE 25,000 UNITS/500 ML BAG IV SCH (15:37)
[2024-10-27 23:33] LABS: ANTI-Xa, UFH(UnfractionatedHep 0.79 IU/ml (0.3-0.7)
[2024-10-28 07:16] LABS: BUN Creatinine Ratio 24.5 (10-20); Calcium 8.8 mg/dl (8.6-10.3); Creatinine Clr Calc Pharmacy 26.4 ml/min; Potassium 4.3 mmol/L (3.5-5.1)
[2024-10-28 07:25] LABS: INR 3.1 (0.9-1.1)
[2024-10-28 07:53] LABS: ANTI-Xa, UFH(UnfractionatedHep 1.32 IU/ml (0.3-0.7)
[2024-10-28] MEDS: FUROSEMIDE 40 MG TAB PO SCH (10:06)
[2024-10-28 11:40] LABS: ANTI-Xa, UFH(UnfractionatedHep 0.25 IU/ml (0.3-0.7)
--- NOTE | 2024-10-28 13:08 | Hospitalist Progress Note ---
Date of Service October 28, 2024 Assessment & Plan (1) CHF (congestive heart failure): Plan: History of diastolic dysfunction Underlying pulmonary hypertension Complicated by atrial fibrillation and suboptimal blood pressure control Has been receiving intravenous Lasix 40 mg daily monitor kidney function Strict intake output chart review maintain Appreciate cardiology input and recommendation She has been feeling better Clinically does not have any evidence of fluid overload and/or CHF and she has not been getting any more Lasix for now Denies any shortness of breath at rest and cumulative fluid balance so far is positive [id number] Remains medically stable without any palpitation, chest pain or shortness of breath Receaved furosemide 20 mg IV and on discharge she will be 40 mg alternate with 20 mg at home (2) Atrial fibrillation: Plan: hx CAD status post CABG and paroxysmal atrial fibrillation SSS status post PPM on Coumadin, INR therapeutic History of atrial fibrillation and also has a pacemaker Remained in paced rhythm with controlled rate she also on amiodarone in 2017 which was discontinued due to intolerance Started on intravenous amiodarone during this admission and the A-fib rate is well-controlled and that amiodarone infusion has been discontinued by the attache She has been on increased dose of metoprolol succinate at 150 mg twice daily Rate is controlled around 70s Rate is controlled with current medications (3) SOB (shortness of breath): Plan: Shortness of breath secondary to subacute CHF (4) Acute UTI: Plan: Complicated UTI, no sepsis for now White count is elevated to more than 16 and UA was suggestive of infection Urine culture is showing 3 different types of organisms Will continue current antibiotic which is prolonged for about 3 to 5 days Denies any urinary symptoms No definite urine infection as per criteria Will discontinue ertapenem after 3 days of therapy Will have antibiotic for today and tomorrow as well (5) AMS (altered mental status): Plan: Presented with altered mental status likely multifactorial Complicated UTI and shortness of breath CHF Seems to be at her baseline (6) Diabetes mellitus type 2 with complications: Plan: DM2 on oral medications, suboptimal control as of recent hemoglobin A1c of 7.6 in August 2024 Basal bolus insulin, ISS BG goal 1 10-1 40, carb count coverage (7) Low back pain: Plan: Complains low back pain without radiation Pain seems to be stable with current medications Denies any back pain and radiculopathy (8) HTN (hypertension): Plan: Blood pressure remains on the lower side of normal at 102/65 Hyperlipidemia/statin intolerance CRI, creatinine better than last outpatient baseline. DVT prophylaxis. Coumadin INR goal between 2 and 3 DNR as per patient prior directives. Patient request for to be given updates regarding care. Mr. Trent Almanza, contact numbers [phone]. Will get PT and OT evaluation prior to discharge Admission and Anticipated Discharge Date Admission Date: October 24, 2024 Subjective 10/25/2024 The patient was seen and examined in telemetry unit She was admitted with shortness of breath and also confusion Noted to have UTI and also A-fib with RVR She complains to me to have back pain but does not have any palpitation, chest pain or shortness of breath 10/26/2024 The patient was seen and examined in telemetry unit She has been feeling much better today and denies any back pain Does not have any chest pain and/or palpitation and denies any shortness of breath 10/27/2024 The patient was seen and examined in telemetry unit She has some redness involving the left lower extremity which has improved since yesterday Denies any shortness of breath or palpitation or any chest pain Heart rate is controlled with current medication 10/28/2024 The patient was seen and examined in telemetry unit She has been feeling much better and the redness and pain in the left leg has improved a lot Denies any palpitations or shortness of breath anything at this time Review of Systems Review of Systems: All systems reviewed and are unremarkable except as noted below Physical Exam Physical Exam: Lying in bed without any acute distress Constitutional: well developed, well nourished and average body habitus; not ill appearing Eyes: PERRL, conjunctivae normal, anicteric sclerae ENMT: external ear and nose normal, oropharynx normal Neck: trachea midline, no thyromegaly Respiratory: no respiratory distress Auscultation: lungs clear to auscultation bilaterally; no crackles Cardiovascular: Rate/Rhythm: regular rate, regular rhythm and + irregularly irregular; not bradycardic Heart Sounds: normal S1 and normal S2; no murmur Extremities: no edema Gastrointestinal (Abdomen): Inspection/Auscultation: normal bowel sounds; abdomen not distended Percussion/Palpation: abdomen soft; abdomen nontender Neurologic: normal touch/pain/proprioception and moves all extremities; no focal motor deficits Lymphatic: no cervical or axillary lymphadenopathy Results & Data Results & Data Vital Signs (Past 12 Hours) Vital Signs Temp Pulse Pulse Resp BP BP Pulse Ox 10/28/24 11:57 36.5 C 77 20 140/61 95 10/28/24 07:41 36.6 C 70 18 142/62 H 96 10/28/24 07:00 66 10/28/24 03:02 36.7 C 72 16 151/85 H 95 O2 Del Method 10/28/24 11:57 Room Air 10/28/24 07:41 Room Air 10/28/24 07:00 10/28/24 03:02 Room Air Laboratory Results BMP 10/28/24 06:36 Sodium 139 Potassium 4.3 Chloride 105 Carbon Dioxide 26 BUN 37 H Creatinine 1.51 H Glucose 113 H Calcium 8.8 Medications Administered Current Inpatient Medications Acetaminophen (Acetaminophen 325 Mg Tab) 650 mg PO QID PRN PRN Reason: pain/fever Stop: 11/23/24 23:19 Aspirin (Aspirin 81 Mg Ectab) 81 mg PO MoWeFr@0900 [facility] Stop: 11/24/24 08:59 Last Admin: 10/28/24 08:08 Dose: 81 mg Cyanocobalamin (Cyanocobalamin (B-12) 500 Mcg Tablet) 1,000 mcg PO DAILY [facility] Stop: 11/24/24 08:59 Last Admin: 10/28/24 08:08 Dose: 1,000 mcg Dextrose (Dextrose 50% 50 Ml Syringe) 25 - 50 ml IV UD PRN; Protocol PRN Reason: Hypoglycemia Protocol Stop: 11/23/24 23:10 Furosemide (Furosemide 40 Mg Tab) 40 mg PO QAM [facility] Stop: 11/27/24 08:59 Last Admin: 10/28/24 10:06 Dose: 40 mg Glucagon (Glucagon For Inj 1 Mg Vial) 1 mg SQ UD PRN; Protocol PRN Reason: Hypoglycemia Protocol Stop: 11/23/24 23:10 Glucose (Glucose 40% Gel 15 Gm Tube) 15 - 30 gm PO UD PRN; Protocol PRN Reason: Hypoglycemia Protocol Stop: 11/23/24 23:10 Glucose (Glucose 10 Tab/Tube) 4 - 8 tab PO UD PRN; Protocol PRN Reason: Hypoglycemia Protocol Stop: 11/23/24 23:10 Aztreonam 2,000 mg/ Dextrose 100 mls @ 100 mls/hr IV Q12H [facility] Stop: 11/04/24 07:59 Last Infusion: 10/28/24 09:26 Dose: Infused Heparin Sodium/Dextrose (Heparin Sodium/Dextrose) 25,000 units in 500 mls @ 14 mls/hr IV .Q24H [facility]; Protocol Stop: 11/26/24 14:14 Last Titration: 10/28/24 11:52 Dose: 700 units/hr, 14 mls/hr Insulin Aspart (Insulin Aspart Per Unit Charge) 0 units SC ACHS [facility] Stop: 11/23/24 23:10 Last Admin: 10/28/24 11:52 Dose: 4 units Insulin Glargine (Lantus Per Unit Charge) 20 units SQ QAM [facility] Stop: 11/24/24 08:59 Last Admin: 10/28/24 08:09 Dose: 20 units Losartan Potassium (Losartan Potassium 50 Mg Tab) 100 mg PO QAM [facility] Stop: 11/24/24 08:59 Last Admin: 10/28/24 08:08 Dose: 100 mg Metoprolol Succinate (Metoprolol Succ 50mg Ext Rel Tab) 150 mg PO BID [facility] Stop: 11/24/24 20:59 Last Admin: 10/28/24 08:08 Dose: 150 mg Miscellaneous (Carbohydrates For Hypoglycemia ) 15 - 30 gm PO UD PRN PRN Reason: Hypoglycemia Protocol Stop: 11/23/24 23:10 Pantoprazole Sodium (Pantoprazole 40 Mg Tab) 40 mg PO DAILY [facility] Stop: 11/24/24 08:59 Last Admin: 10/28/24 08:08 Dose: 40 mg Rosuvastatin Calcium (Rosuvastatin Calcium 20 Mg Tab) 20 mg PO HS [facility] Stop: 11/24/24 20:59 Last Admin: 10/27/24 21:17 Dose: 20 mg Warfarin Sodium (Warfarin Sod 5 Mg Tab) 5 mg PO DAILY@1600 [facility] Stop: 11/26/24 15:59 Last Admin: 10/27/24 15:24 Dose: 5 mg (2) Atrial fibrillation Atrial fibrillation type: longstanding persistent Qualified Code(s): I48.11 - Longstanding persistent atrial fibrillation
[2024-10-28 15:45] VITALS: O2SAT 98
[2024-10-29 07:45] VITALS: RESP 18
[2024-10-29 11:45] VITALS: TEMP 97.9
--- NOTE | 2024-10-29 14:52 | Hospitalist Progress Note ---
Date of Service October 29, 2024 Assessment & Plan (1) CHF (congestive heart failure): Plan: History of diastolic dysfunction Underlying pulmonary hypertension Complicated by atrial fibrillation and suboptimal blood pressure control Has been receiving intravenous Lasix 40 mg daily monitor kidney function Strict intake output chart review maintain Appreciate cardiology input and recommendation She has been feeling better Clinically does not have any evidence of fluid overload and/or CHF and she has not been getting any more Lasix for now Denies any shortness of breath at rest and cumulative fluid balance so far is positive [id number] Remains medically stable without any palpitation, chest pain or shortness of breath Receaved furosemide 20 mg IV and on discharge she will be 40 mg alternate with 20 mg at home Remains medically stable without any symptoms and will be discharged home this afternoon Has had physical therapy and recommended home (2) Atrial fibrillation: Plan: hx CAD status post CABG and paroxysmal atrial fibrillation SSS status post PPM on Coumadin, INR therapeutic History of atrial fibrillation and also has a pacemaker Remained in paced rhythm with controlled rate she also on amiodarone in 2017 which was discontinued due to intolerance Started on intravenous amiodarone during this admission and the A-fib rate is well-controlled and that amiodarone infusion has been discontinued by the camera repairer She has been on increased dose of metoprolol succinate at 150 mg twice daily Rate is controlled around 70s Rate is controlled with current medications Rate is controlled and the INR is therapeutic at 3.1 (3) SOB (shortness of breath): Plan: Shortness of breath secondary to subacute CHF (4) Acute UTI: Plan: Complicated UTI, no sepsis for now White count is elevated to more than 16 and UA was suggestive of infection Urine culture is showing 3 different types of organisms Will continue current antibiotic which is prolonged for about 3 to 5 days Denies any urinary symptoms No definite urine infection as per criteria Will discontinue ertapenem after 3 days of therapy Will have antibiotic for today and tomorrow as well Antibiotic course is finished (5) AMS (altered mental status): Plan: Presented with altered mental status likely multifactorial Complicated UTI and shortness of breath CHF Seems to be at her baseline (6) Diabetes mellitus type 2 with complications: Plan: DM2 on oral medications, suboptimal control as of recent hemoglobin A1c of 7.6 in August 2024 Basal bolus insulin, ISS BG goal 1 10-1 40, carb count coverage (7) Low back pain: Plan: Complains low back pain without radiation Pain seems to be stable with current medications Denies any back pain and radiculopathy (8) HTN (hypertension): Plan: Blood pressure remains on the lower side of normal at 102/65 Hyperlipidemia/statin intolerance CRI, creatinine better than last outpatient baseline. DVT prophylaxis. Coumadin INR goal between 2 and 3 DNR as per patient prior directives. Patient request for to be given updates regarding care. Mr. Trent Almanza, contact numbers [phone]. Will get PT and OT evaluation prior to discharge Discussed with the in detail and she will be discharged home this afternoon Admission and Anticipated Discharge Date Admission Date: October 24, 2024 Subjective 10/25/2024 The patient was seen and examined in telemetry unit She was admitted with shortness of breath and also confusion Noted to have UTI and also A-fib with RVR She complains to me to have back pain but does not have any palpitation, chest pain or shortness of breath 10/26/2024 The patient was seen and examined in telemetry unit She has been feeling much better today and denies any back pain Does not have any chest pain and/or palpitation and denies any shortness of breath 10/27/2024 The patient was seen and examined in telemetry unit She has some redness involving the left lower extremity which has improved since yesterday Denies any shortness of breath or palpitation or any chest pain Heart rate is controlled with current medication 10/28/2024 The patient was seen and examined in telemetry unit She has been feeling much better and the redness and pain in the left leg has improved a lot Denies any palpitations or shortness of breath anything at this time 10/29/2024 The patient was seen and examined in telemetry unit She has been feeling much better and denies any cardiac symptoms She does not have any redness and/or tenderness involving the left lower leg No fever and/or chills and remains hemodynamically stable Will be discharged home this afternoon Review of Systems Review of Systems: All systems reviewed and are unremarkable except as noted below Physical Exam Physical Exam: Lying in bed without any acute distress Constitutional: well developed, well nourished and average body habitus; not ill appearing Eyes: PERRL, conjunctivae normal, anicteric sclerae ENMT: external ear and nose normal, oropharynx normal Neck: trachea midline, no thyromegaly Respiratory: no respiratory distress Auscultation: lungs clear to auscultation bilaterally; no crackles Cardiovascular: Rate/Rhythm: regular rate, regular rhythm and + irregularly irregular; not bradycardic Heart Sounds: normal S1 and normal S2; no murmur Extremities: no edema Gastrointestinal (Abdomen): Inspection/Auscultation: normal bowel sounds; abdomen not distended Percussion/Palpation: abdomen soft; abdomen nontender Neurologic: normal touch/pain/proprioception and moves all extremities; no focal motor deficits Lymphatic: no cervical or axillary lymphadenopathy Results & Data Results & Data Vital Signs (Past 12 Hours) Vital Signs Temp Pulse Pulse Resp BP Pulse Ox O2 Del Method 10/29/24 11:42 36.6 C 81 18 128/85 98 Room Air 10/29/24 08:00 68 10/29/24 07:44 36.7 C 72 18 113/73 98 Room Air 10/29/24 04:21 36.8 C 75 16 175/93 H 98 Room Air Medications Administered Current Inpatient Medications Acetaminophen (Acetaminophen 325 Mg Tab) 650 mg PO QID PRN PRN Reason: pain/fever Stop: 11/23/24 23:19 Aspirin (Aspirin 81 Mg Ectab) 81 mg PO [id number]@0900 [facility] Stop: 11/24/24 08:59 Last Admin: 10/28/24 08:08 Dose: 81 mg Cyanocobalamin (Cyanocobalamin (B-12) 500 Mcg Tablet) 1,000 mcg PO DAILY [facility] Stop: 11/24/24 08:59 Last Admin: 10/29/24 08:49 Dose: 1,000 mcg Dextrose (Dextrose 50% 50 Ml Syringe) 25 - 50 ml IV UD PRN; Protocol PRN Reason: Hypoglycemia Protocol Stop: 11/23/24 23:10 Furosemide (Furosemide 40 Mg Tab) 40 mg PO QAM [facility] Stop: 11/27/24 08:59 Last Admin: 10/29/24 08:48 Dose: 40 mg Glucagon (Glucagon For Inj 1 Mg Vial) 1 mg SQ UD PRN; Protocol PRN Reason: Hypoglycemia Protocol Stop: 11/23/24 23:10 Glucose (Glucose 40% Gel 15 Gm Tube) 15 - 30 gm PO UD PRN; Protocol PRN Reason: Hypoglycemia Protocol Stop: 11/23/24 23:10 Glucose (Glucose 10 Tab/Tube) 4 - 8 tab PO UD PRN; Protocol PRN Reason: Hypoglycemia Protocol Stop: 11/23/24 23:10 Aztreonam 2,000 mg/ Dextrose 100 mls @ 100 mls/hr IV Q12H [facility] Stop: 11/04/24 07:59 Last Infusion: 10/29/24 10:07 Dose: Infused Insulin Aspart (Insulin Aspart Per Unit Charge) 0 units SC ACHS [facility] Stop: 11/23/24 23:10 Last Admin: 10/29/24 13:11 Dose: 6 units Insulin Glargine (Lantus Per Unit Charge) 20 units SQ QAM [facility] Stop: 11/24/24 08:59 Last Admin: 10/29/24 08:47 Dose: 20 units Losartan Potassium (Losartan Potassium 50 Mg Tab) 100 mg PO QAM [facility] Stop: 11/24/24 08:59 Last Admin: 10/29/24 08:48 Dose: 100 mg Metoprolol Succinate (Metoprolol Succ 50mg Ext Rel Tab) 150 mg PO BID [facility] Stop: 11/24/24 20:59 Last Admin: 10/29/24 08:48 Dose: 150 mg Miscellaneous (Carbohydrates For Hypoglycemia ) 15 - 30 gm PO UD PRN PRN Reason: Hypoglycemia Protocol Stop: 11/23/24 23:10 Pantoprazole Sodium (Pantoprazole 40 Mg Tab) 40 mg PO DAILY [facility] Stop: 11/24/24 08:59 Last Admin: 10/29/24 08:49 Dose: 40 mg Rosuvastatin Calcium (Rosuvastatin Calcium 20 Mg Tab) 20 mg PO HS [facility] Stop: 11/24/24 20:59 Last Admin: 10/28/24 21:46 Dose: 20 mg Warfarin Sodium (Warfarin Sod 5 Mg Tab) 5 mg PO DAILY@1600 [facility] Stop: 11/26/24 15:59 Last Admin: 10/28/24 17:30 Dose: 5 mg (2) Atrial fibrillation Atrial fibrillation type: longstanding persistent Qualified Code(s): I48.11 - Longstanding persistent atrial fibrillation
[2024-10-29 16:42] VITALS: BP 151/85; PULSE 69
--- NOTE | 2024-10-30 09:20 | Discharge Summary ---
Date of Service October 30, 2024 Admission HPI Per Admitting Provider History obtained from patient and records. Medical history significant for chronic diastolic heart failure (EF 55 to 59%, TTE 2023), mild TR, CAD status post CABG, SSS status post PPM on Coumadin, hypertension, hyperlipidemia/statin intolerance, pulmonary hypertension, DISH, DM2 on oral medications, CRI (patient creatinine 1.4). Last confinement January 2022 acute blood loss secondary to dental procedure/epistaxis. Patient with intermittent SOB symptoms the last couple of months. Compliant with home medications. Denies chest pain or cough symptoms. Patient not sure about fluid retention. Patient noted to be more confused than usual today. Patient denies abdominal or flank pain or hematuria. Patient brought to ER for evaluation. Lasix and ceftriaxone administered at the ER for possible UTI. Medical History as above Surgical History : CABG, PPM, D&C, shoulder abscess drainage, PRINCE, appendectomy Family History : DM, heart disease Personal/Social history : Non-smoker, no EtOH intake, lives with Admission Exam Per Admitting Provider Physical Exam: GENERAL: Comfortable, pleasant, no respiratory distress SKIN: Normal color, warm HEENT: Petal palpebral conjunctivae, no ptosis, dry buccal mucosa NECK : Supple, no tenderness CHEST : Decreased breath sounds, no tenderness HEART : RRR, systolic murmur ABDOMEN: Some distention, nontender EXTREMITIES : Minimal LE swelling/tenderness, no other conspicuous deformities noted NEUROLOGIC : Coherent, no facial asymmetry, gait and stance not assessed Principal Diagnosis Diastolic CHF, atrial fibrillation, acute UTI, low back pain Discharge Exam Lying in bed without any acute distress Constitutional well developed, well nourished and average body habitus; not ill appearing Eyes PERRL, conjunctivae normal, anicteric sclerae ENMT external ear and nose normal, oropharynx normal Neck trachea midline, no thyromegaly Respiratory no respiratory distress Auscultation: lungs clear to auscultation bilaterally; no crackles Cardiovascular Rate/Rhythm: regular rate, regular rhythm and + irregularly irregular; not bradycardic Heart Sounds: normal S1 and normal S2; no murmur Extremities: no edema Gastrointestinal (Abdomen) Inspection/Auscultation: normal bowel sounds; abdomen not distended Percussion/Palpation: abdomen soft; abdomen nontender Neurologic normal touch/pain/proprioception and moves all extremities; no focal motor deficits Lymphatic no cervical or axillary lymphadenopathy Discharge Data Allergies Allergy/AdvReac Type Severity Reaction Status Date / Time lisinopril Allergy Intermediate Cough Verified 10/24/24 20:56 cefazolin Allergy Unknown CEPHALEXIN-PT Verified 10/24/24 20:56 DOESN'T REMEMBER WHAT HAPPENED tetanus toxoid, adsorbed Allergy Unknown LOCAL Verified 10/24/24 20:56 REACTION/FEVER oxycodone AdvReac Unknown NAUSEA/STOMACH Verified 10/24/24 20:56 PAINS Consultations 10/24/24 22:00 ED Decision to Admit Stat 10/24/24 23:17 Consult Cardiology Routine Ordered Studies 10/24/24 16:35 CT head/brain wo con Stat Hospital Course (1) CHF (congestive heart failure): History of diastolic dysfunction Underlying pulmonary hypertension Complicated by atrial fibrillation and suboptimal blood pressure control Has been receiving intravenous Lasix 40 mg daily monitor kidney function Strict intake output chart review maintain Appreciate cardiology input and recommendation She has been feeling better Clinically does not have any evidence of fluid overload and/or CHF and she has not been getting any more Lasix for now Denies any shortness of breath at rest and cumulative fluid balance so far is positive [id number] Remains medically stable without any palpitation, chest pain or shortness of breath Receaved furosemide 20 mg IV and on discharge she will be 40 mg alternate with 20 mg at home Remains medically stable without any symptoms and will be discharged home this a fternoon Has had physical therapy and recommended home (2) Atrial fibrillation: hx CAD status post CABG and paroxysmal atrial fibrillation SSS status post PPM on Coumadin, INR therapeutic History of atrial fibrillation and also has a pacemaker Remained in paced rhythm with controlled rate she also on amiodarone in 2017 which was discontinued due to intolerance Started on intravenous amiodarone during this admission and the A-fib rate is well-controlled and that amiodarone infusion has been discontinued by the hourly team members She has been on increased dose of metoprolol succinate at 150 mg twice daily Rate is controlled around 70s Rate is controlled with current medications Rate is controlled and the INR is therapeutic at 3.1 (3) SOB (shortness of breath): Shortness of breath secondary to subacute CHF (4) Acute UTI: Complicated UTI, no sepsis for now White count is elevated to more than 16 and UA was suggestive of infection Urine culture is showing 3 different types of organisms Will continue current antibiotic which is prolonged for about 3 to 5 days Denies any urinary symptoms No definite urine infection as per criteria Will discontinue ertapenem after 3 days of therapy Will have antibiotic for today and tomorrow as well Antibiotic course is finished (5) AMS (altered mental status): Presented with altered mental status likely multifactorial Complicated UTI and shortness of breath CHF Seems to be at her baseline (6) Diabetes mellitus type 2 with complications: DM2 on oral medications, suboptimal control as of recent hemoglobin A1c of 7.6 in August 2024 Basal bolus insulin, ISS BG goal 1 10-1 40, carb count coverage (7) Low back pain: Complains low back pain without radiation Pain seems to be stable with current medications Denies any back pain and radiculopathy (8) HTN (hypertension): Blood pressure remains on the lower side of normal at 102/65 Hyperlipidemia/statin intolerance CRI, creatinine better than last outpatient baseline. DVT prophylaxis. Coumadin INR goal between 2 and 3 DNR as per patient prior directives. Patient request for to be given updates regarding care. Mr. Trent Almanza, contact numbers [phone]. Will get PT and OT evaluation prior to discharge Discussed with the in detail and she will be discharged home this afternoon Total Time Total Time Spent Total Time Spent (In Minutes): 40 minutes Discharge Plan Discharge Items Patient Disposition: Home - Self-Care Reason For Visit: CHF Discharge Diagnosis: diastolic CHF, atrial fibrillation, acute UTI, low back pain Condition on Discharge: Fair Activity: Resume your previous activity Non-emergency contact: Primary Care Provider Call non-emergency contact if: you have any medication questions and your sy mptoms worsen Follow-up/Referrals: Pete Ambriz MD [Primary Care Provider] - (Date & Time 11/05/2024 11:20 AM Provider:Pete Ambriz MD Department: Family Practice, [facility] ) Diet: Heart Healthy Addtl Attending Provider Instructions: Please take precautions to avoid falls Take your medications as advised Your metoprolol has been changed to 3 tablet that is 150 mg twice daily Please keep appointments with the healthcare provider Please keep appointment with your coagulation clinic Pending Studies at Discharge: No Stand-Alone Forms: [employer], Smoking Cessation Medications and DC Order Prescriptions: New metoprolol succinate 50 mg Tablet Extended Release 24 Hr 150 mg PO BID Qty: 180 0RF Continued losartan 100 mg tablet 100 mg PO QAM nitroglycerin 0.4 mg tablet, sublingual 0.4 mg SL DIRECTED PRN (Reason: Chest Pain) Rx Instructions: PLACE ONE TABLET UNDER THE TONGUE EVERY 5 MINUTES FOR UP TO 3 DOSES OVER 15 MINUTES IF NEEDED FOR CHEST PAIN rosuvastatin 20 mg tablet 20 mg PO HS cholecalciferol (vitamin D3) 5,000 unit capsule 5,000 units PO HS furosemide [Lasix] 20 mg tablet See Rx Instructions .ROUTE .COMPLEX Rx Instructions: TAKE TWO TABLETS (40 MG) EVERY MONDAY,MONDAY AND MONDAY AND ONE TABLET (20 MG) ALL OTHER DAYS OF THE WEEK Jardiance 25 mg tablet 25 mg PO QAM potassium chloride 10 mEq tablet,ER particles/crystals See Rx Instructions .ROUTE .COMPLEX Rx Instructions: TAKE ONE TABLET (10 MEQ) EVERY MONDAY,MONDAY AND MONDAY warfarin 2 mg tablet 2 mg PO DIRECTED Qty: 0 0RF Rx Instructions: Take 1/2 tablet on Monday and 1 tablet the other 6 days of the week at bedtime. metformin 1,000 mg tablet,ER kwan.retention 24 hr 1,000 mg PO BIDM Rx Instructions: Take with meals. insulin glargine [Lantus Solostar U-100 Insulin] 100 unit/mL (3 mL) insulin pen 24 unit subcut QAM Rx Instructions: Hold if blood sugar is less than 100. aspirin 81 mg Tablet 81 mg PO [id number] Rx Instructions: Mon,Mon,Mon mecobalamin (vitamin B12) [B12 Active] 1,000 mcg Tablet,Chewable 1,000 mcg PO DAILY pantoprazole [Protonix] 40 mg tablet,delayed release (DR/EC) 40 mg PO DAILY Qty: 30 0RF Discontinued metoprolol tartrate 100 mg tablet 100 mg PO BID Discharge Orders: Discharge Order (Routine); Ordered 10/29/24 Ordered By: Joshua Gill Admission Data Admit Date/Time: 10/24/24 22:25 Attending Provider: Joshua Gill Admit Provider: Silverio Maki Primary Care Provider: Pete Ambriz Other Providers: Silverio Maki Other Interventions: Discharge Summary Assessment (RN) Last Done: 10/29/24 16:41
--- NOTE | 2024-10-30 14:33 | Coding Query ---
CONGESTIVE HEART FAILURE The patient came in with CHF-clearly documented secondary to Diastolic heart failure To Promote full compliance with coding requirements relating to patient care, physician participation is requested in all cases of mushroom sorter grader uncertainty. Please assist us with the following questions. A diagnosis of Congestive Heart Failure is documented in the patient's medical record. To accurately code this diagnosis and to compare patient severity, we ask that you specify the type of heart failure by placing an X within the parenthesis (x). SYSTOLIC HEART FAILURE ( ) Acute ( ) Chronic ( ) Acute on Chronic ( ) Rheumatic ( ) Unknown DIASTOLIC HEART FAILURE ( ) Acute ( ) Chronic ( +) Acute on Chronic ( ) Rheumatic ( ) Unknown COMBINED SYSTOLIC AND DIASTOLIC HEART FAILURE ( ) Acute ( ) Chronic ( ) Acute on Chronic ( ) Rheumatic ( ) Unknown Was the CHF Present On Admission? Please check the appropriate box: (+ ) Present on Admission ( ) Not Present On Admission ( ) Clinically undetermined Thank you Waldo BELL
== END 2024-10-29 18:30 | disposition home or self-care (01) | DRG 291 ==
LOC: ED 15:55 → 2S 22:25

== ENCOUNTER 2025-06-23 19:14 | Inpatient (IN) ==
--- NOTE | 2025-06-23 19:38 | Emergency Department Note ---
Impression & Plan Sepsis, Community acquired pneumonia, Osteomyelitis of foot, Pseudohyponatremia, Acute encephalopathy, Acute hypoxic respiratory failure, Subtherapeutic anticoagulation ED Provider Note NAME: DAVID ROBERTS AGE: 85 SEX: F : 1940 ARRIVES VIA: Ambulance INFORMANT: Patient, EMS, ED PROVIDER(S): Gary Ly DO CHIEF COMPLAINT: confusion HPI: This is a 85-year-old female with the PMHx of hypertension, hyperlipidemia, CAD, tachybradycardia syndrome s/p PPM, paroxysmal atrial fibrillation on chronic anticoagulation with Coumadin, pulmonary hypertension, IBS, peripheral artery disease, and DM2 complicated by diabetic ulcer presenting to [facility] for further evaluation of confusion. Patient is accompanied by EMS who provide additional history. EMS states the patient has been confused but no stroke deficits noted. They also noted that the patient has been intermittently tachycardic as well as tachypneic. The patient is very inattentive. Patient unable to provide reliable review of systems or history. Patient's arrived at the bedside. He notes that she has been very confused over the past few days. She does have a PICC line in place and is receiving daptomycin for osteomyelitis. He notes that he she continues to worsen. They deny fever or chills. No cough or congestion. Denies chest pain or palpitations. No shortness of breath. They deny abdominal pain, nausea and vomiting. No urinary complaints. No recent changes in bowel movements. Patient denies recent changes in medications or OTC supplements. Patient offers no other complaints, today. ADDITIONAL HISTORY OBTAINED: Per HPI Chronic Medical/Social Conditions Affecting Care: Per HPI PAST MEDICAL HISTORY: See Below PAST SURGICAL HISTORY: See Below FAMILY HISTORY: See Below SOCIAL HISTORY: See Below HOME MEDICATIONS: See Below ALLERGIES: See Below VITALS: See Below PHYSICAL EXAMINATION: GENERAL: Sitting up in bed, alert, ill appearing, no distress, non-toxic EYE EXAM: normal conjunctiva. PERRL and EOM's grossly intact. OROPHARYNX: no exudate, no erythema, lips, buccal mucosa, and tongue normal and mucous membranes are moist NECK: supple, no nuchal rigidity, no adenopathy, non-tender LUNGS: Rhonchorous breath sounds with tachypnea. Normal chest wall mechanics HEART: no murmurs, tachycardic rate, irregular rhythm ABDOMEN: abdomen soft, non-tender, no masses, no rebound or guarding. BACK: Back is symmetrical on inspection and there is no deformity, no midline tenderness, no CVA tenderness. SKIN: no rashes and no bruising UPPER EXTREMITIES: upper extremities are grossly normal. LOWER EXTREMITIES: No pitting edema. There is a small healing diabetic ulcer over the left lateral foot. There is really no significant erythema, warmth or crepitus to the extremity. Neurovascularly intact. NEURO EXAM: GCS 14. She is only mildly confused but significantly inattentive. normal speech, no gross weakness of arms, no gross weakness of legs. MEDICAL DECISION MAKING: Differential diagnoses includes but not limited to Hypoglycemia, electrolyte derangements, dehydration, shock, CVA, ICH, hydrocephalus, NPH, UTI, pneumonia, viral URI, postictal period, ACS, dysrhythmia, metabolic encephalopathy, multifactorial encephalopathy, hypercapnia, hypoxia, polypharmacy, substance use In summary, this is a 85 year old female who presented with Confusion. Differential as above. Nursing notes and pertinent past medical records reviewed. Vital signs reviewed and the patient is tachypneic and tachycardic meeting SIRS criteria on arrival to the emergency department she is otherwise afebrile and hemodynamically stable. Do feel given that the patient is already on broad-spectrum antibiotics that the patient is likely septic. Likely complicated by acute encephalopathy. Plan for workup including repeat labs and inflammatory markers. Will obtain plain films of the chest and the left lower extremity. Patient may need further advanced imaging for osteomyelitis. Patient has no stroke deficits on exam. Do not think that intracranial pathology is causing the patient's presentation today. Diagnostics interpreted by me include EKG and cardiac monitoring as listed below: -Cardiac Monitoring: An order was placed for continuous cardiac monitoring. The monitor shows a rate of 80-120s with irregular rhythm. -ECG: EKG independently interpreted by me reveals relatively rate controlled atrial fibrillation at [address] segment changes to suggest STEMI. Intervals otherwise within normal limits. Patient completed laboratory studies and imaging. Results independently interpreted by me are mild leukocytosis. The patient was managed with gentle IV fluid resuscitation and broad-spectrum antibiotics. ESR is 72. INR is subtherapeutic at 1.6. Evidence of hyperventilation on VBG. Patient likely has pseudohyponatremia in the setting of hyperglycemia. No СВЕТЛАНА. CRP is also elevated but normal procalcitonin. BNP only mildly elevated. Lactate is normal. Electrolytes and LFTs are otherwise unremarkable. No evidence of UTI on urinalysis. Negative viral swab. antibiotics were discussed with the pharmacy and they recommended transitioning to IV Zosyn and vancomycin. Will obtain a MRSA swab. Plain films of the chest independently turbid by me reveal possible right-sided pneumonia. Given the patient's tachypnea as well as cough that she reports as well as confusion, I do feel pneumonia could fit with the patient's clinical picture and could be the source of her sepsis. Patient did have plain films of the left lower extremity as well. Significant bone degradation likely from osteomyelitis. Patient may benefit from further evaluation with advanced imaging as an inpatient. Will continue broad-spectrum antibiotics and admit to the hospitalist service. Ultimately, the decision was made to admit the patient for sepsis secondary to community-acquired pneumonia and osteomyelitis c/b acute encephalopathy. I discussed the case with the hospitalist service via telephone/Tiger[employer] and they are agreeable to admit the patient to their services. Based on the above, including the patient's age, coexisting illnesses, labs, imaging, and exam findings the decision to treat as an inpatient. I discussed the patient with the hospitalist team who recommended admission to their services. They received the medications, treatments, interventions indicated above and their condition remained guarded. I discussed my findings with the patient and their family and they understand and agree with the treatment plan. All patient / family questions were answered to their satisfaction. Consults/Care Managements Discussions: Per [facility] ER treatment provided: See above Procedures:none Critical Care: None The chart was completed utilizing [employer] Speech voice recognition software. Grammatical errors, random word insertions, pronoun errors, and incomplete sentences are an occasional consequence of this system due to software limitations, ambient noise, and hardware issues. Any formal questions or concerns about the content, text, or information contained within the body of this dictation should be directly addressed to the physician for clarification. Past Med/Surg History Problem List (Updated 06/24/25 @ 01:03 by Gary Ly DO) Subtherapeutic anticoagulation (Acute) Acute hypoxic respiratory failure (Acute) Acute encephalopathy (Acute) Pseudohyponatremia (Acute) Osteomyelitis of foot (Acute) Community acquired pneumonia (Acute) Sepsis (Acute) Diabetic foot ulcer with osteomyelitis PAD (peripheral artery disease) (Acute) Diabetic ulcer of left foot (Acute) Diabetic ulcer of right foot (Acute) SOB (shortness of breath) CHF (congestive heart failure) (Acute) Acute UTI (Acute) AMS (altered mental status) (Acute) Dyspnea on exertion Pacemaker (Acute) Infarction of spleen (Acute) Anemia (Acute) Current use of fci anticoagulation (Acute) Atrial fibrillation (Acute) Do not resuscitate status Diabetes mellitus type 2 with complications Atrial fibrillation with RVR (Acute) COVID-19 (Acute) Lumbar radiculopathy (Chronic) Chronic anticoagulation (Chronic) Low back pain (Chronic) Aortocoronary bypass status (Chronic) Cardiac pacemaker (Chronic) DISH (diffuse idiopathic skeletal hyperostosis) (Chronic) IBS (irritable bowel syndrome) (Chronic) Coronary atherosclerosis (Chronic) Pulmonary HTN (Chronic) Hyponatremia (Chronic) Dyslipidemia (Chronic) Type 2 diabetes mellitus (Chronic) Atrial fibrillation (Chronic) Hyperlipidemia (Chronic) DM type 2 (diabetes mellitus, type 2) (Chronic) Tachy-aylin syndrome (Chronic) "s/p pacemaker" HTN (hypertension) (Chronic) Paroxysmal atrial fibrillation (Chronic) "on chronic anticoagulation" CAD (coronary artery disease) (Chronic) Medical History Encounter for pre-operative examination History of pacemaker Surgical History Hx of CABG H/O: hysterectomy Hx of appendectomy Family History Aunt Diabetes Uncle Diabetes Daughter Diabetes Mother Hypertension Heart disease Father Hypertension Heart disease Social History Smoking Status: Never smoker Second Hand Exposure: No; Do You Dip or Chew Tobacco: No; Hx Alcohol Use: No Hx Substance Use: No Preferred Language: Czech Communication Ability: Effective Visual Impairment: Partially Limited Hearing Ability: Normal Medical Imaging Specialist Required: No Beliefs That Will Affect Care: None marital status: Current Living Situation: Spouse and Family Current Living Situation Comment: And friend with them current occupational status: retired Feels Safe at Home: Yes Diet: regular caffeine: Yes Assistive Devices: None, Cane, Denture - Upper, Denture - Lower, Glasses and Special Shoe Allergies Allergies Allergy/AdvReac Type Severity Reaction Status Date / Time heparin Allergy Intermediate Hallucinati Verified 06/17/25 10:39 ng lisinopril Allergy Intermediate Cough Verified 06/17/25 10:39 cefazolin Allergy Unknown CEPHALEXIN-PT Verified 06/17/25 10:39 DOESN'T REMEMBER WHAT HAPPENED tetanus toxoid, adsorbed Allergy Unknown LOCAL Verified 06/17/25 10:39 REACTION/FEVER oxycodone AdvReac Unknown NAUSEA/STOMACH Verified 06/17/25 10:39 PAINS Home Meds Home Medications Medication Instructions Recorded Confirmed cholecalciferol (vitamin D3) 125 5,000 units PO HS 06/25/19 06/17/25 mcg (5,000 unit) capsule losartan 100 mg tablet 100 mg PO QAM 06/25/19 06/17/25 nitroglycerin 0.4 mg sublingual 0.4 mg sublingual DIRECTED PRN 06/25/19 06/17/25 tablet Chest Pain rosuvastatin 20 mg tablet 20 mg PO HS 06/25/19 06/17/25 empagliflozin 25 mg tablet 25 mg PO QAM 08/31/20 06/17/25 (Jardiance) insulin glargine 100 unit/mL (3 24 unit subcut QAM 02/15/22 06/17/25 mL) subcutaneous pen (Lantus Solostar U-100 Insulin) mecobalamin (vitamin B12) 1,000 1,000 mcg PO DAILY 02/15/22 06/17/25 mcg chewable tablet (B12 Active) duloxetine 30 mg capsule,delayed 60 mg PO DAILY 02/24/25 06/17/25 release furosemide 20 mg tablet (Lasix) 40 mg PO DAILY 02/24/25 06/17/25 isosorbide dinitrate 30 mg tablet 30 mg PO DAILY 02/24/25 06/17/25 Previous Rx's Medication Instructions Recorded warfarin 2 mg tablet 2 mg PO DIRECTED #0 tabs 09/03/20 pantoprazole 40 mg tablet,delayed 40 mg PO DAILY #30 tabs 02/19/22 release (Protonix) metoprolol succinate 50 mg 150 mg (3 x 50 mg) PO BID #180 tabs 10/29/24 tablet,extended release 24 hr clopidogrel 75 mg tablet 75 mg PO DAILY #30 tabs 04/07/25 Results & Data (ED) Vital Signs Vital Signs - 24 hr 06/23/25 19:09 06/23/25 19:21 06/23/25 19:22 Temperature 36.2 C L Temperature Source Oral Pulse Rate 110 H 105 H Pulse Rate from SpO2 Sensor Respiratory Rate 26 H Respiratory Effort / Characteristics Respiratory Depth Respiratory Pattern Blood Pressure 150/58 H 170/104 H Blood Pressure Mean 88 125 Pulse Oximetry 95 Oxygen Delivery Method Room Air Oxygen Flow Rate Sepsis Recent Fever Within 48 Hours No Sepsis New/Unexplained Change in Mental Status Yes Sepsis Action Taken by Nursing Physician Notified 06/23/25 19:22 06/23/25 19:22 06/23/25 19:23 Temperature Temperature Source Pulse Rate Pulse Rate from SpO2 Sensor Respiratory Rate Respiratory Effort / Characteristics Respiratory Depth Respiratory Pattern Regular Blood Pressure 170/104 H 170/104 H Blood Pressure Mean 125 125 Pulse Oximetry Oxygen Delivery Method Room Air Oxygen Flow Rate Sepsis Recent Fever Within 48 Hours Sepsis New/Unexplained Change in Mental Status Sepsis Action Taken by Nursing 06/23/25 19:23 06/23/25 19:24 06/23/25 19:30 Temperature Temperature Source Pulse Rate 93 H 98 H Pulse Rate from SpO2 Sensor Respiratory Rate 32 H 31 H Respiratory Effort / Characteristics Respiratory Depth Respiratory Pattern Blood Pressure Blood Pressure Mean Pulse Oximetry Oxygen Delivery Method Room Air Oxygen Flow Rate Sepsis Recent Fever Within 48 Hours Sepsis New/Unexplained Change in Mental Status Sepsis Action Taken by Nursing 06/23/25 19:45 06/23/25 19:47 06/23/25 19:51 Temperature Temperature Source Pulse Rate 87 Pulse Rate from SpO2 Sensor 103 H Respiratory Rate 28 H Respiratory Effort / Characteristics Respiratory Depth Respiratory Pattern Blood Pressure 163/79 H Blood Pressure Mean 83 Pulse Oximetry 94 Oxygen Delivery Method Room Air Oxygen Flow Rate Sepsis Recent Fever Within 48 Hours Sepsis New/Unexplained Change in Mental Status Sepsis Action Taken by Nursing 06/23/25 19:53 06/23/25 19:54 06/23/25 19:57 Temperature Temperature Source Pulse Rate 102 H 94 H Pulse Rate from SpO2 Sensor 103 H 97 H Respiratory Rate 19 28 H Respiratory Effort / Characteristics Non-Labored Respiratory Depth Normal Respiratory Pattern Blood Pressure Blood Pressure Mean Pulse Oximetry 94 94 Oxygen Delivery Method Oxygen Flow Rate Sepsis Recent Fever Within 48 Hours Sepsis New/Unexplained Change in Mental Status Sepsis Action Taken by Nursing 06/23/25 20:01 06/23/25 20:01 06/23/25 20:12 Temperature Temperature Source Pulse Rate 96 H Pulse Rate from SpO2 Sensor 106 H Respiratory Rate Respiratory Effort / Characteristics Respiratory Depth Respiratory Pattern Blood Pressure 184/87 H 184/87 H Blood Pressure Mean 100 100 Pulse Oximetry 94 Oxygen Delivery Method Oxygen Flow Rate Sepsis Recent Fever Within 48 Hours Sepsis New/Unexplained Change in Mental Status Sepsis Action Taken by Nursing 06/23/25 20:30 06/23/25 20:34 06/23/25 20:45 Temperature Temperature Source Pulse Rate 87 93 H Pulse Rate from SpO2 Sensor 93 H 91 H Respiratory Rate 24 28 H Respiratory Effort / Characteristics Respiratory Depth Respiratory Pattern Blood Pressure 173/100 H Blood Pressure Mean 120 Pulse Oximetry 92 90 Oxygen Delivery Method Oxygen Flow Rate Sepsis Recent Fever Within 48 Hours Sepsis New/Unexplained Change in Mental Status Sepsis Action Taken by Nursing 06/23/25 20:48 06/23/25 21:06 06/23/25 21:09 Temperature Temperature Source Pulse Rate 101 H Pulse Rate from SpO2 Sensor 117 H Respiratory Rate 25 H Respiratory Effort / Characteristics Non-Labored Respiratory Depth Normal Respiratory Pattern Blood Pressure Blood Pressure Mean Pulse Oximetry 92 94 Oxygen Delivery Method Nasal Cannula Oxygen Flow Rate 3 Sepsis Recent Fever Within 48 Hours Sepsis New/Unexplained Change in Mental Status Sepsis Action Taken by Nursing 06/23/25 21:12 06/23/25 21:15 06/23/25 21:21 Temperature Temperature Source Pulse Rate 107 H 89 Pulse Rate from SpO2 Sensor Respiratory Rate 27 H 31 H Respiratory Effort / Characteristics Non-Labored Respiratory Depth Normal Respiratory Pattern Blood Pressure Blood Pressure Mean Pulse Oximetry 93 Oxygen Delivery Method Oxygen Flow Rate Sepsis Recent Fever Within 48 Hours Sepsis New/Unexplained Change in Mental Status Sepsis Action Taken by Nursing 06/23/25 21:30 06/23/25 21:48 06/23/25 21:51 Temperature Temperature Source Pulse Rate 110 H 93 H Pulse Rate from SpO2 Sensor Respiratory Rate 34 H 32 H Respiratory Effort / Characteristics Non-Labored Respiratory Depth Normal Respiratory Pattern Blood Pressure 173/93 H Blood Pressure Mean 119 Pulse Oximetry 96 Oxygen Delivery Method Nasal Cannula Oxygen Flow Rate 3 Sepsis Recent Fever Within 48 Hours Sepsis New/Unexplained Change in Mental Status Sepsis Action Taken by Nursing 06/23/25 21:54 06/23/25 22:00 06/23/25 22:01 Temperature Temperature Source Pulse Rate 101 H Pulse Rate from SpO2 Sensor Respiratory Rate 31 H Respiratory Effort / Characteristics Respiratory Depth Respiratory Pattern Regular Rapid/Shallow Blood Pressure 173/93 H Blood Pressure Mean 144 Pulse Oximetry Oxygen Delivery Method Oxygen Flow Rate Sepsis Recent Fever Within 48 Hours Sepsis New/Unexplained Change in Mental Status Sepsis Action Taken by Nursing 06/23/25 22:06 06/23/25 22:15 06/23/25 22:30 Temperature Temperature Source Pulse Rate 101 H 122 H Pulse Rate from SpO2 Sensor Respiratory Rate 23 23 Respiratory Effort / Characteristics Respiratory Depth Respiratory Pattern Blood Pressure Blood Pressure Mean Pulse Oximetry 95 Oxygen Delivery Method Nasal Cannula Oxygen Flow Rate Sepsis Recent Fever Within 48 Hours Sepsis New/Unexplained Change in Mental Status Sepsis Action Taken by Nursing 06/23/25 22:30 06/23/25 22:30 06/23/25 22:30 Temperature Temperature Source Pulse Rate Pulse Rate from SpO2 Sensor Respiratory Rate Respiratory Effort / Characteristics Respiratory Depth Respiratory Pattern Blood Pressure 155/96 H 155/96 H 155/96 H Blood Pressure Mean 114 114 114 Pulse Oximetry Oxygen Delivery Method Oxygen Flow Rate Sepsis Recent Fever Within 48 Hours Sepsis New/Unexplained Change in Mental Status Sepsis Action Taken by Nursing 06/23/25 22:45 06/23/25 22:51 06/23/25 23:00 Temperature Temperature Source Pulse Rate 108 H 92 H Pulse Rate from SpO2 Sensor Respiratory Rate 15 21 Respiratory Effort / Characteristics Respiratory Depth Respiratory Pattern Blood Pressure Blood Pressure Mean Pulse Oximetry Oxygen Delivery Method Nasal Cannula Oxygen Flow Rate Sepsis Recent Fever Within 48 Hours Sepsis New/Unexplained Change in Mental Status Sepsis Action Taken by Nursing 06/23/25 23:00 06/23/25 23:00 06/23/25 23:00 Temperature Temperature Source Pulse Rate Pulse Rate from SpO2 Sensor Respiratory Rate Respiratory Effort / Characteristics Respiratory Depth Respiratory Pattern Regular Blood Pressure 169/82 H 169/82 H Blood Pressure Mean 118 118 Pulse Oximetry Oxygen Delivery Method Oxygen Flow Rate Sepsis Recent Fever Within 48 Hours Sepsis New/Unexplained Change in Mental Status Sepsis Action Taken by Nursing 06/23/25 23:24 06/23/25 23:25 06/23/25 23:30 Temperature Temperature Source Pulse Rate 100 H 87 Pulse Rate from SpO2 Sensor Respiratory Rate 23 25 H Respiratory Effort / Characteristics Respiratory Depth Respiratory Pattern Blood Pressure Blood Pressure Mean Pulse Oximetry Oxygen Delivery Method Oxygen Flow Rate Sepsis Recent Fever Within 48 Hours Sepsis New/Unexplained Change in Mental Status Sepsis Action Taken by Nursing 06/23/25 23:45 Temperature Temperature Source Pulse Rate Pulse Rate from SpO2 Sensor Respiratory Rate Respiratory Effort / Characteristics Non-Labored Respiratory Depth Normal Respiratory Pattern Blood Pressure Blood Pressure Mean Pulse Oximetry Oxygen Delivery Method Oxygen Flow Rate Sepsis Recent Fever Within 48 Hours Sepsis New/Unexplained Change in Mental Status Sepsis Action Taken by Nursing Laboratory Data 06/23/25 19:32 06/23/25 19:32 Lab Results 06/23/25 06/23/25 06/23/25 Range/Units 19:32 19:38 19:46 WBC 15.09 H (4.8-10.8) K/ul RBC 4.79 (4.20-5.40) M/uL Hgb 14.3 (12.0-16.0) g/dl Hct 42.2 (37.0-47.0) % MCV 88.1 (80.0-100.0) fL MCH 29.9 (25.0-34.0) pg MCHC 33.9 (32.0-36.0) g/dL RDW Std Deviation 44.8 (36.4-46.3) fL RDW Coeff of Alex 13.9 (11.5-14.5) % Plt Count 275 (130-400) K/uL MPV 9.3 L (9.4-12.4) fL Immature Gran % (Auto) 0.3 % Neut % (Auto) 80.7 % Lymph % (Auto) 7.9 % Casey % (Auto) 8.1 % Eos % (Auto) 2.5 % Baso % (Auto) 0.5 % Neut # (Auto) 12.19 H (1.40-6.50) K/uL Lymph # (Auto) 1.19 L (1.20-3.40) K/uL Casey # (Auto) 1.22 H (0.11-0.59) K/uL Eos # (Auto) 0.37 (0.00-0.50) K/uL Baso # (Auto) 0.07 (0.00-0.20) K/uL Immature Gran # (Auto) 0.05 (0.01-0.20) K/uL ESR 72 H (0-30) mm/hr PT 16.4 H (9.0-12.0) Seconds INR 1.6 H (0.9-1.1) APTT 40 H (21-31) Seconds PTT Ratio 1.5 VBG pH 7.44 H (7.36-7.41) VBG pCO2 37 L (38-50) mmHg VBG pO2 38 mmHg VBG HCO3 25 mmol/L VBG O2 Saturation 69.1 % VBG Base Excess 1.1 mEq/L Sodium 132 L (136-145) mmol/L Potassium 4.0 (3.5-5.1) mmol/L Chloride 100 (98-107) mmol/L Carbon Dioxide 24 (21-32) mmol/L Anion Gap 8 (3-11) BUN 25 H (6-23) mg/dl Creatinine 0.97 (0.6-1.2) mg/dl Est Cr Clr Drug Dosing Not Reportable eGFR 57.98 BUN/Creatinine Ratio 25.8 H (10-20) Glucose 202 H (70-99(Fasting)) mg/dl Lactate 1.3 (0.4-2.0) mmol/L Calcium 9.0 (8.6-10.3) mg/dl Magnesium 1.8 (1.7-2.4) mg/dl Total Bilirubin 0.7 (0.2-1.0) mg/dl Direct Bilirubin 0.2 (0-0.2) mg/dl AST 34 (13-39) U/L ALT 46 (7-52) U/L Alkaline Phosphatase 75 (34-104) U/L Troponin I High Sens 9.3 (0-14) pg/ml C-Reactive Protein 6.39 H (0-0.5) mg/dl B-Natriuretic Peptide 285 H (0-100) pg/ml Total Protein 8.2 (6.0-8.3) gm/dl Albumin 3.5 (3.4-5.0) gm/dl Procalcitonin 0.11 (0-0.5) ng/ml Urine Color Yellow Urine Appearance Clear (Clear) Urine pH 7.5 (4.5-7.5) Ur Specific Sunman 1.030 (1.000-1.030) Urine Protein 2+ H (Negative) Urine Glucose (UA) 3+ H (Negative) Urine Ketones Negative (Negative) Urine Blood Negative (Negative) Urine Nitrite Negative (Negative) Urine Bilirubin Negative (Negative) Urine Urobilinogen Negative (Negative) Ur Leukocyte Esterase Negative (Negative) Urine WBC (Auto) 0-5 (0-5) /hpf Urine RBC (Auto) 0-2 (0-2) /hpf U Hyaline Cast (Auto) 0-2 (0-2) /lpf U Epithel Cells (Auto) 0-2 (0-2) /hpf Urine Bacteria (Auto) None Seen (None Seen) Urine Comment Nasal Screen MRSA (PCR) (Negative) Adenovirus (PCR) Not Detected (NotDetected) B. pertussis DNA (PCR) Not Detected (NotDetected) B.parapertussis DNA PCR Not Detected (NotDetected) C. pneumoniae DNA (PCR) Not Detected (NotDetected) Coronavirus OC43 (PCR) Not Detected (NotDetected) Coronavirus HKU1 (PCR) Not Detected (NotDetected) Coronavirus 229E (PCR) Not Detected (NotDetected) SARS-CoV-2 (PCR) Not Detected (NotDetected) Coronavirus NL63 (PCR) Not Detected (NotDetected) Human Metapneumovir PCR Not Detected (NotDetected) Influenza Type A (PCR) Not Detected (NotDetected) Influenza Type B (PCR) Not Detected (NotDetected) M. pneumoniae (PCR) Not Detected (NotDetected) Parainfluenza 1 (PCR) Not Detected (NotDetected) Parainfluenza 2 (PCR) Not Detected (NotDetected) Parainfluenza 3 (PCR) Not Detected (NotDetected) Parainfluenza 4 (PCR) Not Detected (NotDetected) RSV (PCR) Not Detected (NotDetected) Entero/Rhino (PCR) Not Detected (NotDetected) 06/23/25 Range/Units 21:58 WBC (4.8-10.8) K/ul RBC (4.20-5.40) M/uL Hgb (12.0-16.0) g/dl Hct (37.0-47.0) % MCV (80.0-100.0) fL MCH (25.0-34.0) pg MCHC (32.0-36.0) g/dL RDW Std Deviation (36.4-46.3) fL RDW Coeff of Alex (11.5-14.5) % Plt Count (130-400) K/uL MPV (9.4-12.4) fL Immature Gran % (Auto) % Neut % (Auto) % Lymph % (Auto) % Casey % (Auto) % Eos % (Auto) % Baso % (Auto) % Neut # (Auto) (1.40-6.50) K/uL Lymph # (Auto) (1.20-3.40) K/uL Casey # (Auto) (0.11-0.59) K/uL Eos # (Auto) (0.00-0.50) K/uL Baso # (Auto) (0.00-0.20) K/uL Immature Gran # (Auto) (0.01-0.20) K/uL ESR (0-30) mm/hr PT (9.0-12.0) Seconds INR (0.9-1.1) APTT (21-31) Seconds PTT Ratio VBG pH (7.36-7.41) VBG pCO2 (38-50) mmHg VBG pO2 mmHg VBG HCO3 mmol/L VBG O2 Saturation % VBG Base Excess mEq/L Sodium (136-145) mmol/L Potassium (3.5-5.1) mmol/L Chloride (98-107) mmol/L Carbon Dioxide (21-32) mmol/L Anion Gap (3-11) BUN (6-23) mg/dl Creatinine (0.6-1.2) mg/dl Est Cr Clr Drug Dosing eGFR BUN/Creatinine Ratio (10-20) Glucose (70-99(Fasting)) mg/dl Lactate (0.4-2.0) mmol/L Calcium (8.6-10.3) mg/dl Magnesium (1.7-2.4) mg/dl Total Bilirubin (0.2-1.0) mg/dl Direct Bilirubin (0-0.2) mg/dl AST (13-39) U/L ALT (7-52) U/L Alkaline Phosphatase (34-104) U/L Troponin I High Sens (0-14) pg/ml C-Reactive Protein (0-0.5) mg/dl B-Natriuretic Peptide (0-100) pg/ml Total Protein (6.0-8.3) gm/dl Albumin (3.4-5.0) gm/dl Procalcitonin (0-0.5) ng/ml Urine Color Urine Appearance (Clear) Urine pH (4.5-7.5) Ur Specific Sunman (1.000-1.030) Urine Protein (Negative) Urine Glucose (UA) (Negative) Urine Ketones (Negative) Urine Blood (Negative) Urine Nitrite (Negative) Urine Bilirubin (Negative) Urine Urobilinogen (Negative) Ur Leukocyte Esterase (Negative) Urine WBC (Auto) (0-5) /hpf Urine RBC (Auto) (0-2) /hpf U Hyaline Cast (Auto) (0-2) /lpf U Epithel Cells (Auto) (0-2) /hpf Urine Bacteria (Auto) (None Seen) Urine Comment Nasal Screen MRSA (PCR) Negative (Negative) Adenovirus (PCR) (NotDetected) B. pertussis DNA (PCR) (NotDetected) B.parapertussis DNA PCR (NotDetected) C. pneumoniae DNA (PCR) (NotDetected) Coronavirus OC43 (PCR) (NotDetected) Coronavirus HKU1 (PCR) (NotDetected) Coronavirus 229E (PCR) (NotDetected) SARS-CoV-2 (PCR) (NotDetected) Coronavirus NL63 (PCR) (NotDetected) Human Metapneumovir PCR (NotDetected) Influenza Type A (PCR) (NotDetected) Influenza Type B (PCR) (NotDetected) M. pneumoniae (PCR) (NotDetected) Parainfluenza 1 (PCR) (NotDetected) Parainfluenza 2 (PCR) (NotDetected) Parainfluenza 3 (PCR) (NotDetected) Parainfluenza 4 (PCR) (NotDetected) RSV (PCR) (NotDetected) Entero/Rhino (PCR) (NotDetected) Administered Medications Discontinued Medications Piperacillin Sod/Tazobactam Sod (Zosyn) 4.5 gm in 100 mls @ 200 mls/hr IV NOW ONE; Protocol Stop: 06/23/25 22:06 Last Infusion: 06/23/25 22:30 Dose: Infused Documented By: Admin: 06/23/25 21:50 Dose: 200 mls/hr Documented By: AUSTIN Vancomycin HCl 2,000 mg/ (Sodium Chloride) 540 mls @ 200 mls/hr IV NOW ONE Stop: 06/24/25 00:18 Last Admin: 06/23/25 23:41 Dose: 200 mls/hr Documented By: AUSTIN Acetaminophen (Ofirmev) 1,000 mg in 100 mls @ 400 mls/hr IV NOW STA Stop: 06/23/25 22:38 Last Infusion: 06/23/25 22:45 Dose: Infused Documented By: Admin: 06/23/25 22:26 Dose: 400 mls/hr Documented By: AUSTIN Ondansetron HCl (Ondansetron Inj 2 Mg/Ml 2 Ml Vial) 4 mg IV NOW STA Stop: 06/23/25 22:25 Last Admin: 06/23/25 22:26 Dose: 4 mg Documented By: AUSTIN Imaging Data Radiologist's Impression: Chest X-Ray 06/23/25 19:23 Exam(s): XR CXR 1 VIEW EXAM: XR Chest, 1 View CLINICAL HISTORY: Reason for exam: Sepsis. TECHNIQUE: Frontal view of the chest. COMPARISON: 06/17/2025 FINDINGS: Lungs: Patchy opacity in the periphery at the right lung base. Pleural space: No pleural effusion. No pneumothorax. Heart: Unremarkable. No cardiomegaly. Tubes, lines and devices: Pacemaker leads in the right atrium and right ventricle. Right upper extremity PICC is unchanged in position. IMPRESSION: Patchy opacity in the periphery at the right lung base. Pneumonia can have this appearance in the appropriate clinical setting. Electronically signed by: Mendel Lau MD 06/23/25 22:03 PM Foot X-Ray 06/23/25 19:23 Exam(s): XR LEFT FOOT, 3+ views EXAM: XR Left Foot Complete, 3 or More Views CLINICAL HISTORY: Reason for exam: OM. TECHNIQUE: Frontal, lateral and oblique views of the left foot. COMPARISON: No relevant prior studies available. FINDINGS: Bones/joints: Destructive change at the fifth MTP joint consistent with acute osteomyelitis. Fracture of the fifth proximal phalanx. 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 Soft tissue ulceration adjacent to the fifth MTP joint. Soft tissues: Diffuse soft tissue edema. IMPRESSION: 1. Destructive change at the fifth MTP joint consistent with acute osteomyelitis. Pathologic fracture of the fifth proximal phalanx. 2. 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 3. Soft tissue ulceration adjacent to the fifth MTP joint. 4. Consider MRI for further evaluation. Electronically signed by: Mendel Lau MD 06/23/25 22:02 PM Discharge Plan Visit Data Chief Complaint: Confusion Stated Complaint: AMS, AFIB, SEPSIS? ED Provider: Gary Ly Discharge Problem: Sepsis, Community acquired pneumonia, Osteomyelitis of foot, Pseudohyponatremia, Acute encephalopathy, Acute hypoxic respiratory failure, Subtherapeutic anticoagulation Patient Disposition: Admitted As Inpatient Condition: Serious Forms Stand Alone Forms: [facility] Prescriptions Prescriptions: No Action losartan 100 mg tablet 100 mg PO QAM nitroglycerin 0.4 mg tablet, sublingual 0.4 mg SL DIRECTED PRN (Reason: Chest Pain) Rx Instructions: PLACE ONE TABLET UNDER THE TONGUE EVERY 5 MINUTES FOR UP TO 3 DOSES OVER 15 MINUTES IF NEEDED FOR CHEST PAIN rosuvastatin 20 mg tablet 20 mg PO HS cholecalciferol (vitamin D3) 5,000 unit capsule 5,000 units PO HS furosemide [Lasix] 20 mg tablet 40 mg PO DAILY duloxetine 30 mg capsule,delayed release(DR/EC) 60 mg PO DAILY isosorbide dinitrate 30 mg tablet 30 mg PO DAILY Rx Instructions: allow nitrate-free interval of 12-14 hrs per 24-hr period Jardiance 25 mg tablet 25 mg PO QAM warfarin 2 mg tablet 2 mg PO DIRECTED Qty: 0 0RF Rx Instructions: Take 1/2 tablet on Monday and 1 tablet the other 6 days of the week at bedtime. insulin glargine [Lantus Solostar U-100 Insulin] 100 unit/mL (3 mL) insulin pen 24 unit subcut QAM Rx Instructions: Hold if blood sugar is less than 100. mecobalamin (vitamin B12) [B12 Active] 1,000 mcg Tablet,Chewable 1,000 mcg PO DAILY pantoprazole [Protonix] 40 mg tablet,delayed release (DR/EC) 40 mg PO DAILY Qty: 30 0RF metoprolol succinate 50 mg Tablet Extended Release 24 Hr 150 mg PO BID Qty: 180 0RF clopidogrel 75 mg tablet 75 mg PO DAILY Qty: 30 1RF Referrals Referrals: Pete Ambriz MD [Primary Care Provider] -
[2025-06-23 19:42] LABS: Base Excess VBG 1.1 mEq/L; HCO3 VBG 25 mmol/L; Hematocrit (blood only) 42.2 % (37.0-47.0); Hemoglobin 14.3 g/dl (12.0-16.0); Immature Granulocytes # (auto) 0.05 K/uL (0.01-0.20); Immature Granulocytes % (auto) 0.3 %; Mean Corpuscular Hemoglobin 29.9 pg (25.0-34.0); Mean Corpuscular Volume 88.1 fL (80.0-100.0); Oxygen Saturation VBG 69.1 %; PCO2 VBG 37 mmHg (38-50); PO2 VBG 38 mmHg; Platelet Count 275 K/uL (130-400); RDW Standard Deviation 44.8 fL (36.4-46.3); Red Blood Count 4.79 M/uL (4.20-5.40); White Blood Count 15.09 K/ul (4.8-10.8); pH VBG 7.44 (7.36-7.41)
[2025-06-23 20:03] LABS: Alanine Aminotransferase 46 U/L (7-52); Alkaline Phosphatase 75 U/L (34-104); Anion Gap 8 (3-11); Bilirubin,Total 0.7 mg/dl (0.2-1.0); Blood Urea Nitrogen 25 mg/dl (6-23); Calcium 9.0 mg/dl (8.6-10.3); Carbon Dioxide 24 mmol/L (21-32); Chloride 100 mmol/L (98-107); Glucose 202 mg/dl (70-99(Fasting)); Magnesium 1.8 mg/dl (1.7-2.4); Potassium 4.0 mmol/L (3.5-5.1); Sodium 132 mmol/L (136-145); Total Protein 8.2 gm/dl (6.0-8.3)
[2025-06-23 20:04] LABS: Appearance Urine Clear (Clear); Bacteria Urine Automated None Seen (None Seen); Cast Urine Automated 0-2 /lpf (0-2); Epithelial Cell Urine Auto 0-2 /hpf (0-2); Glucose Urine UA 3+ (Negative); RBC Urine Automated 0-2 /hpf (0-2); WBC Urine Automated 0-5 /hpf (0-5)
[2025-06-23 20:15] LABS: INR 1.6 (0.9-1.1); Partial Thromboplastin Time 40 Seconds (21-31); Prothrombin Time 16.4 Seconds (9.0-12.0)
[2025-06-23 21:04] LABS: Chlamydia pneumoniae PCR Not Detected (NotDetected); Coronavirus 229E PCR Not Detected (NotDetected); Coronavirus CoV-2 (COVID19)PCR Not Detected (NotDetected); Coronavirus HKU1 PCR Not Detected (NotDetected); Coronavirus NL63 PCR Not Detected (NotDetected); Coronavirus OC43PCR Not Detected (NotDetected); Human Metapneumovirus PCR Not Detected (NotDetected); Parainfluenza Virus 1 PCR Not Detected (NotDetected); Parainfluenza Virus 2 PCR Not Detected (NotDetected); Parainfluenza Virus 3 PCR Not Detected (NotDetected); Parainfluenza Virus 4 PCR Not Detected (NotDetected); Respiratory Syncytial VirusPCR Not Detected (NotDetected); Rhinovirus/Enterovirus PCR Not Detected (NotDetected)
[2025-06-23] MEDS ORDERED: VANCOMYCIN CONSULT ACTIVE PRN (21:37)
[2025-06-23] MEDS: PIPERACILLIN/TAZOBACTAM 4.5 GM/100 ML BAG IV ONE (21:50)
--- NOTE | 2025-06-23 22:02 | XRay Report ---
Exam(s): XR LEFT FOOT, 3+ views EXAM: XR Left Foot Complete, 3 or More Views CLINICAL HISTORY: Reason for exam: OM. TECHNIQUE: Frontal, lateral and oblique views of the left foot. COMPARISON: No relevant prior studies available. FINDINGS: Bones/joints: Destructive change at the fifth MTP joint consistent with acute osteomyelitis. Fracture of the fifth proximal phalanx. 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 Soft tissue ulceration adjacent to the fifth MTP joint. Soft tissues: Diffuse soft tissue edema. IMPRESSION: 1. Destructive change at the fifth MTP joint consistent with acute osteomyelitis. Pathologic fracture of the fifth proximal phalanx. 2. 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 3. Soft tissue ulceration adjacent to the fifth MTP joint. 4. Consider MRI for further evaluation. Electronically signed by: Mendel Lau MD 06/23/25 22:02 PM
--- NOTE | 2025-06-23 22:03 | XRay Report ---
Exam(s): XR CXR 1 VIEW EXAM: XR Chest, 1 View CLINICAL HISTORY: Reason for exam: Sepsis. TECHNIQUE: Frontal view of the chest. COMPARISON: 06/17/2025 FINDINGS: Lungs: Patchy opacity in the periphery at the right lung base. Pleural space: No pleural effusion. No pneumothorax. Heart: Unremarkable. No cardiomegaly. Tubes, lines and devices: Pacemaker leads in the right atrium and right ventricle. Right upper extremity PICC is unchanged in position. IMPRESSION: Patchy opacity in the periphery at the right lung base. Pneumonia can have this appearance in the appropriate clinical setting. Electronically signed by: Mendel Lau MD 06/23/25 22:03 PM
[2025-06-23] MEDS: ONDANSETRON INJ 2 MG/ML 2 ML VIAL IV STA (22:26)
[2025-06-23] MEDS: ACETAMINOPHEN 1,000 MG/100 ML VIAL IV STA (22:26)
[2025-06-23] MEDS: VANCOMYCIN HCL 2,000 MG in SODIUM CHLORIDE 0.9% 500 ML IV ONE (23:41)
--- NOTE | 2025-06-24 01:38 | History & Physical Report ---
Date of Service June 24, 2025 Assessment & Plan (1) Confusion: Plan: 85-year-old female with past medical history significant for type 2 diabetes, CKD stage III, dyslipidemia, diabetic retinopathy, peripheral artery disease, nontoxic multinodular goiter, uncomplicated asthma, hypertension, persistent atrial fibrillation, pulmonary hypertension, osteoporosis, CAD status post CABG, status post pacemaker, osteomyelitis of left foot who lives at home with her and ambulates without support was brought in because of confusion. As per about 5 days ago patient was started IV daptomycin for osteomyelitis. Today she was sitting on the chair seemed confused. Not answering. When the decided to bring her to the hospital ,she woke up and resisted. Because of ongoing confusion was brought to the hospital. Currently patient is alert and awake and oriented to name and place. Could tell her age. Could not tell current dates. Patient denies any headache. Denies any chest pain. Denies shortness of breath. She says she always has cough. Denies nausea. Denies abdominal pain. States micturating okay. States moving her bowels okay. Per she also complained of left foot pain. thinks patient had fever. Hemodynamics are okay in the ER. Patient is following with wound care and podiatry for left foot diabetic ulcer. Left foot has osteomyelitis and it was thought that she was high risk for surgery and pl aced on antibiotics as per the . She had a left lower extremity angiogram and revascularization done by Dr. Grey on 04/07/2025. Supposed to follow-up with Yeni MIJARES in mid of July but seems patient was started on antibiotics daptomycin about 5 days back for six weeks. Confusion Seems improving Possible pneumonia on chest x-ray Has left foot osteomyelitis Will follow CT chest Currently on IV daptomycin for left foot osteomyelitis as as per started about 5 days ago. As per to cover Corynebacterium ER discussed with pharmacy and change antibiotics to Zosyn and vancomycin IV fluids Will monitor Left foot osteomyelitis Antibiotics as above Podiatry and ID consult Diabetes Continue home long-acting insulin Hold p.o. medications Sliding scale Will monitor Sick sinus syndrome Status post pacemaker CAD Status post CABG On aspirin, statin, Imdur and metoprolol succinate Will monitor Hypertension Continue Imdur and metoprolol succinate Holding losartan and Lasix for now for ongoing infection Chronic diastolic CHF Holding Lasix Getting gentle fluids Monitor for volume overload A-fib Failed sotalol. Intolerant to amiodarone Currently on metoprolol succinate and Coumadin Monitor INR Hyperlipidemia On statin Peripheral artery disease Follows with vascular surgery On aspirin and statin History of asthma Continue home inhalers DVT prophylaxis On Coumadin Monitor INR Disposition Med/telemetry CODE STATUS DNR as per discussion with the patient and confirms History of Present Illness Chief Complaint: Confusion Primary Care Provider: Pete Ambriz MD 85-year-old female with past medical history significant for type 2 diabetes, CKD stage III, dyslipidemia, diabetic retinopathy, peripheral artery disease, nontoxic multinodular goiter, uncomplicated asthma, hypertension, persistent atrial fibrillation, pulmonary hypertension, osteoporosis, CAD status post CABG, status post pacemaker, osteomyelitis of left foot who lives at home with her and ambulates without support was brought in because of confusion. As per about 5 days ago patient was started IV daptomycin for osteomyelitis. Today she was sitting on the chair seemed confused. Not answering. When the decided to bring her to the hospital ,she woke up and resisted. Because of ongoing confusion was brought to the hospital. Currently patient is alert and awake and oriented to name and place. Could tell her age. Could not tell current dates. Patient denies any headache. Denies any chest pain. Denies shortness of breath. She says she always has cough. Denies nausea. Denies abdominal pain. States micturating okay. States moving her bowels okay. Per she also complained of left foot pain. thinks patient had fever. Hemodynamics are okay in the ER. Patient is following with wound care and podiatry for left foot diabetic ulcer. Left foot has osteomyelitis and it was thought that she was high risk for surgery and placed on antibiotics as per the . She had a left lower extremity angiogram and revascularization done by Dr. Grey on 04/07/2025. Supposed to follow-up with Yeni MIJARES in mid of July but seems patient was started on antibiotics daptomycin about 5 days back for 6 weeks. Past medical history as mentioned above. Past surgical history. CABG. Colonoscopy. Left heart catheterization. EGD. Shoulder abscess drained. Injection of lumbosacral spine. Status post dual- chamber pacemaker. Appendectomy. Injection of sacroiliac joint. Excision of soft tissue tumor on the shoulder right side. Total abdominal hysterectomy. Social history. . No smoking. No alcohol use. No drug use. Family history. Paternal aunt had diabetes. Daughter has type 1 diabetes. Mother had heart disorder. Macular degeneration. Paternal uncle had diabetes. Allergies Allergy/AdvReac Type Severity Reaction Status Date / Time heparin Allergy Intermediate Hallucinati Verified 06/17/25 10:39 ng lisinopril Allergy Intermediate Cough Verified 06/17/25 10:39 cefazolin Allergy Unknown CEPHALEXIN-PT Verified 06/17/25 10:39 DOESN'T REMEMBER WHAT HAPPENED tetanus toxoid, adsorbed Allergy Unknown LOCAL Verified 06/17/25 10:39 REACTION/FEVER oxycodone AdvReac Unknown NAUSEA/STOMACH Verified 06/17/25 10:39 PAINS Home Medications Medication Instructions Recorded Confirmed Type albuterol sulfate 90 mcg/actuation 2 inh inhalation Q6H PRN Shortness 06/24/25 06/24/25 History aerosol inhaler Of Breath Or Wheezing aspirin 81 mg tablet,delayed 81 mg PO DAILY 06/24/25 06/24/25 History release cetirizine 10 mg tablet 10 mg PO DAILY 06/24/25 06/24/25 History cholecalciferol (vitamin D3) 50 50 mcg PO DAILY 06/24/25 06/24/25 History mcg (2,000 unit) capsule (Vitamin D3) daptomycin 500 mg intravenous 500 mg IV DAILY 06/24/25 06/24/25 History solution duloxetine 30 mg capsule,delayed 60 mg PO DAILY 06/24/25 06/24/25 History release empagliflozin 25 mg tablet 25 mg PO DAILY 06/24/25 06/24/25 History (Jardiance) furosemide 20 mg tablet 40 mg PO DAILY 06/24/25 06/24/25 History gabapentin 100 mg capsule 200 mg PO DAILY PRN leg pain 06/24/25 06/24/25 History insulin glargine 100 unit/mL (3 23 unit subcut DAILY 06/24/25 06/24/25 History mL) subcutaneous pen (Basaglar NicolPen U-100 Insulin) isosorbide mononitrate 30 mg 30 mg PO DAILY 06/24/25 06/24/25 History tablet,extended release 24 hr losartan 100 mg tablet 100 mg PO DAILY 06/24/25 06/24/25 History metoprolol succinate 50 mg 150 mg PO BID 06/24/25 06/24/25 History tablet,extended release 24 hr montelukast 10 mg tablet 10 mg PO DAILY 06/24/25 06/24/25 History nitroglycerin 0.4 mg sublingual 0.4 mg sublingual UD PRN Chest Pain 06/24/25 06/24/25 History tablet repaglinide 2 mg tablet 2 mg PO TIDWMEAL 06/24/25 06/24/25 History rosuvastatin 20 mg tablet 20 mg PO DAILY 06/24/25 06/24/25 History warfarin 2 mg tablet 2 mg PO UD 06/24/25 06/24/25 History Past Med/Surg History Problem List (Updated 06/24/25 @ 01:42 by Brendan Jewell MD) Confusion Subtherapeutic anticoagulation (Acute) Acute hypoxic respiratory failure (Acute) Acute encephalopathy (Acute) Pseudohyponatremia (Acute) Osteomyelitis of foot (Acute) Community acquired pneumonia (Acute) Sepsis (Acute) Diabetic foot ulcer with osteomyelitis PAD (peripheral artery disease) (Acute) Diabetic ulcer of left foot (Acute) Diabetic ulcer of right foot (Acute) SOB (shortness of breath) CHF (congestive heart failure) (Acute) Acute UTI (Acute) AMS (altered mental status) (Acute) Dyspnea on exertion Pacemaker (Acute) Infarction of spleen (Acute) Anemia (Acute) Current use of group home anticoagulation (Acute) Atrial fibrillation (Acute) Do not resuscitate status Diabetes mellitus type 2 with complications Atrial fibrillation with RVR (Acute) COVID-19 (Acute) Lumbar radiculopathy (Chronic) Chronic anticoagulation (Chronic) Low back pain (Chronic) Aortocoronary bypass status (Chronic) Cardiac pacemaker (Chronic) DISH (diffuse idiopathic skeletal hyperostosis) (Chronic) IBS (irritable bowel syndrome) (Chronic) Coronary atherosclerosis (Chronic) Pulmonary HTN (Chronic) Hyponatremia (Chronic) Dyslipidemia (Chronic) Type 2 diabetes mellitus (Chronic) Atrial fibrillation (Chronic) Hyperlipidemia (Chronic) DM type 2 (diabetes mellitus, type 2) (Chronic) Tachy-aylin syndrome (Chronic) "s/p pacemaker" HTN (hypertension) (Chronic) Paroxysmal atrial fibrillation (Chronic) "on chronic anticoagulation" CAD (coronary artery disease) (Chronic) Medical History Encounter for pre-operative examination History of pacemaker Surgical History Hx of CABG H/O: hysterectomy Hx of appendectomy Family History Aunt Diabetes Uncle Diabetes Daughter Diabetes Mother Hypertension Heart disease Father Hypertension Heart disease Social History Smoking Status: Never smoker Second Hand Exposure: No; Do You Dip or Chew Tobacco: No; Hx Alcohol Use: No Hx Substance Use: No Preferred Language: Andorran Communication Ability: Effective Visual Impairment: Partially Limited Hearing Ability: Normal Location Analyst Required: No Beliefs That Will Affect Care: None marital status: Current Living Situation: Spouse Current Living Situation Comment: And friend with them current occupational status: retired Other Information That Helps Us Care for You: No Feels Safe at Home: Yes Safety Concerns: Feels Safe At This Time Diet: regular caffeine: Yes Assistive Devices: Denture - Upper Review of Systems Review of Systems: All systems reviewed & are unremarkable except as noted in HPI & below Physical Exam 2 Physical Exam: General- Not in distress Head- atraumatic Eyes- PERRL. ENT- oropharynx clear Neck- supple, no JVD. Lungs- clear to auscultation no wheezing or crackles Heart- regular rhythm; no murmur, no gallop. Abdomen- normal bowel sounds, soft, nontender, no distension Extremities- no pretibial edema, left foot healing ulcer on lateral aspect Neuro- alert, oriented x 2 PERRL, no facial palsy; no dysarthria; moves extremities Results & Data Results & Data Vital Signs (Past 12 Hours) Vital Signs Temp Pulse Resp BP Pulse Ox O2 Del Method O2 Flow Rate 06/24/25 01:00 91 H 22 06/24/25 00:42 94 H 23 06/24/25 00:31 144/74 H 06/24/25 00:31 144/74 H 06/24/25 00:27 83 31 H 96 06/24/25 00:21 102 H 21 06/24/25 00:12 89 23 06/23/25 23:48 77 21 06/23/25 23:30 167/101 H 06/23/25 23:30 167/101 H 06/23/25 23:30 25 H 06/23/25 23:25 87 09/01/25 23:24 100 H 23 06/23/25 23:00 169/82 H 06/23/25 23:00 169/82 H 06/23/25 23:00 Nasal Cannula 06/23/25 22:51 92 H 21 06/23/25 22:45 108 H 15 06/23/25 22:30 155/96 H 06/23/25 22:30 155/96 H 06/23/25 22:30 155/96 H 06/23/25 22:30 Nasal Cannula 06/23/25 22:15 122 H 23 06/23/25 22:06 101 H 23 95 06/23/25 22:01 173/93 H 06/23/25 21:54 101 H 31 H 06/23/25 21:51 93 H 32 H 173/93 H 96 Nasal Cannula 3 06/23/25 21:48 110 H 34 H 06/23/25 21:21 89 31 H 93 06/23/25 21:12 107 H 27 H 06/23/25 21:06 101 H 25 H 94 06/23/25 20:48 92 Nasal Cannula 3 06/23/25 20:45 93 H 28 H 90 06/23/25 20:34 173/100 H 06/23/25 20:30 87 24 92 06/23/25 20:12 96 H 94 06/23/25 20:01 184/87 H 06/23/25 20:01 184/87 H 06/23/25 19:57 94 H 28 H 94 06/23/25 19:54 102 H 19 94 06/23/25 19:51 Room Air 06/23/25 19:47 163/79 H 06/23/25 19:45 87 28 H 94 06/23/25 19:30 98 H 31 H 06/23/25 19:24 93 H 32 H 06/23/25 19:23 Room Air 06/23/25 19:23 Room Air 06/23/25 19:22 170/104 H 06/23/25 19:22 170/104 H 06/23/25 19:22 170/104 H 06/23/25 19:21 105 H 06/23/25 19:09 36.2 C L 110 H 26 H 150/58 H 95 Room Air Diagnostic Findings Laboratory Results WBC 15.09 K/ul (4.8-10.8) H 06/23/25 19:32 RBC 4.79 M/uL (4.20-5.40) 06/23/25 19:32 Hgb 14.3 g/dl (12.0-16.0) 06/23/25 19:32 Hct 42.2 % (37.0-47.0) 06/23/25 19:32 MCV 88.1 fL (80.0-100.0) 06/23/25 19:32 MCH 29.9 pg (25.0-34.0) 06/23/25 19: MCHC 33.9 g/dL (32.0-36.0) 06/23/25: RDW Std Deviation 44.8 fL (36.4-46.3) 06/23/25: RDW Coeff of Alex 13.9 % (11.5-14.5) 06/23/25 19: Plt Count 275 K/uL (130-400) 06/23/25 19:32 MPV 9.3 fL (9.4-12.4) L 06/23/25 19:32 Immature Gran % (Auto) 0.3 % 06/23/25 19:32 Neut % (Auto) 80.7 % 06/23/25 19:32 Lymph % (Auto) 7.9 % 06/23/25 19:32 [place] % (Auto) 8.1 % 06/23/25 19:32 Eos % (Auto) 2.5 % 06/23/25 19:32 Baso % (Auto) 0.5 % 06/23/25 19:32 Neut # (Auto) 12.19 K/uL (1.40-6.50) H 06/23/25 19:32 Lymph # (Auto) 1.19 K/uL (1.20-3.40) L 06/23/25 19:32 [place] # (Auto) 1.22 K/uL (0.11-0.59) H 06/23/25 19:32 Eos # (Auto) 0.37 K/uL (0.00-0.50) 06/23/25 19:32 Baso # (Auto) 0.07 K/uL (0.00-0.20) 06/23/25 19:32 Immature Gran # (Auto) 0.05 K/uL (0.01-0.20) 06/23/25 19:32 ESR 72 mm/hr (0-30) H 06/23/25 19:32 PT 16.4 Seconds (9.0-12.0) H 06/23/25 19:32 INR 1.6 (0.9-1.1) H 06/23/25 19:32 APTT 40 Seconds (21-31) H 06/23/25 19:32 PTT Ratio 1.5 06/23/25 19:32 VBG pH 7.44 (7.36-7.41) H 06/23/25 19:32 VBG pCO2 37 mmHg (38-50) L 06/23/25:32 VBG pO2 38 mmHg 06/23/25:32 VBG HCO3 25 mmol/L 06/23/25:32 VBG O2 Saturation 69.1 % 06/23/25 19:32 VBG Base Excess 1.1 mEq/L 06/23/25 19:32 Sodium 132 mmol/L (136-145) L 06/23/25 19:32 Potassium 4.0 mmol/L (3.5-5.1) 06/23/25 19:32 Chloride 100 mmol/L (98-107) 06/23/25 19:32 Carbon Dioxide 24 mmol/L (21-32) 06/23/25 19:32 Anion Gap 8 (3-11) 06/23/25 19:32 BUN 25 mg/dl (6-23) H 06/23/25 19:32 Creatinine 0.97 mg/dl (0.6-1.2) 06/23/25 19:32 Est Cr Clr Drug Dosing Not Reportable 06/23/25 19:32 eGFR 57.98 06/23/25 19:32 BUN/Creatinine Ratio 25.8 (10-20) H 06/23/25 19:32 Glucose 202 mg/dl (70-99(Fasting)) H 06/23/25 19:32 Lactate 1.3 mmol/L (0.4-2.0) 06/23/25 19:32 Calcium 9.0 mg/dl (8.6-10.3) 06/23/25 19:32 Magnesium 1.8 mg/dl (1.7-2.4) 06/23/25 19:32 Total Bilirubin 0.7 mg/dl (0.2-1.0) 06/23/25 19:32 Direct Bilirubin 0.2 mg/dl (0-0.2) 06/23/25 19:32 AST 34 U/L (13-39) 06/23/25 19:32 ALT 46 U/L (7-52) 06/23/25 19:32 Alkaline Phosphatase 75 U/L (34-104) 06/23/25 19:32 Troponin I High Sens 9.3 pg/ml (0-14) 06/23/25 19:32 C-Reactive Protein 6.39 mg/dl (0-0.5) H 06/23/25 19:32 B-Natriuretic Peptide 285 pg/ml (0-100) H 06/23/25 19:32 Total Protein 8.2 gm/dl (6.0-8.3) 06/23/25 19:32 Albumin 3.5 gm/dl (3.4-5.0) 06/23/25 19:32 Procalcitonin 0.11 ng/ml (0-0.5) 06/23/25 19:32 Urine Color Yellow 06/23/25 19:46 Urine Appearance Clear (Clear) 06/23/25 19:46 Urine pH 7.5 (4.5-7.5) 06/23/25 19:46 Ur Specific [place] 1.030 (1.000-1.030) 06/23/25 19:46 Urine Protein 2+ (Negative) H 06/23/25 19:46 Urine Glucose (UA) 3+ (Negative) H 06/23/25 19:46 Urine Ketones Negative (Negative) 06/23/25 19:46 Urine Blood Negative (Negative) 06/23/25 19:46 Urine Nitrite Negative (Negative) 06/23/25 19:46 Urine Bilirubin Negative (Negative) 06/23/25 19:46 Urine Urobilinogen Negative (Negative) 06/23/25 19:46 Ur Leukocyte Esterase Negative (Negative) 06/23/25 19:46 Urine WBC (Auto) 0-5 /hpf (0-5) 06/23/25 19:46 Urine RBC (Auto) 0-2 /hpf (0-2) 06/23/25 19:46 U Hyaline Cast (Auto) 0-2 /lpf (0-2) 06/23/25 19:46 U Epithel Cells (Auto) 0-2 /hpf (0-2) 06/23/25 19:46 Urine Bacteria (Auto) None Seen (None Seen) 06/23/25 19:46 Urine Comment 06/23/25 19:46 Nasal Screen MRSA (PCR) Negative (Negative) 06/23/25 21:58 Adenovirus (PCR) Not Detected (NotDetected) 06/23/25 19:38 B. pertussis DNA (PCR) Not Detected (NotDetected) 06/23/25 19:38 B.parapertussis DNA PCR Not Detected (NotDetected) 06/23/25 19:38 C. pneumoniae DNA (PCR) Not Detected (NotDetected) 06/23/25 19:38 Coronavirus OC43 (PCR) Not Detected (NotDetected) 06/23/25 19:38 Coronavirus HKU1 (PCR) Not Detected (NotDetected) 06/23/25 19:38 Coronavirus 229E (PCR) Not Detected (NotDetected) 06/23/25 19:38 SARS-CoV-2 (PCR) Not Detected (NotDetected) 06/23/25 19:38 Coronavirus NL63 (PCR) Not Detected (NotDetected) 06/23/25 19:38 Human Metapneumovir PCR Not Detected (NotDetected) 06/23/25 19:38 Influenza Type A (PCR) Not Detected (NotDetected) 06/23/25 19:38 Influenza Type B (PCR) Not Detected (NotDetected) 06/23/25 19:38 M. pneumoniae (PCR) Not Detected (NotDetected) 06/23/25 19:38 Parainfluenza 1 (PCR) Not Detected (NotDetected) 06/23/25 19:38 Parainfluenza 2 (PCR) Not Detected (NotDetected) 06/23/25 19:38 Parainfluenza 3 (PCR) Not Detected (NotDetected) 06/23/25 19:38 Parainfluenza 4 (PCR) Not Detected (NotDetected) 06/23/25 19:38 RSV (PCR) Not Detected (NotDetected) 06/23/25 19:38 Entero/Rhino (PCR) Not Detected (NotDetected) 06/23/25 19:38 Impressions Chest X-Ray 06/23/25 19:23 Exam(s): XR CXR 1 VIEW EXAM: XR Chest, 1 View CLINICAL HISTORY: Reason for exam: Sepsis. TECHNIQUE: Frontal view of the chest. COMPARISON: 06/17/2025 FINDINGS: Lungs: Patchy opacity in the periphery at the right lung base. Pleural space: No pleural effusion. No pneumothorax. Heart: Unremarkable. No cardiomegaly. Tubes, lines and devices: Pacemaker leads in the right atrium and right ventricle. Right upper extremity PICC is unchanged in position. IMPRESSION: Patchy opacity in the periphery at the right lung base. Pneumonia can have this appearance in the appropriate clinical setting. Electronically signed by: Mendel Lau MD 06/23/25 22:03 PM Foot X-Ray 06/23/25 19:23 Exam(s): XR LEFT FOOT, 3+ views EXAM: XR Left Foot Complete, 3 or More Views CLINICAL HISTORY: Reason for exam: OM. TECHNIQUE: Frontal, lateral and oblique views of the left foot. COMPARISON: No relevant prior studies available. FINDINGS: Bones/joints: Destructive change at the fifth MTP joint consistent with acute osteomyelitis. Fracture of the fifth proximal phalanx. 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 Soft tissue ulceration adjacent to the fifth MTP joint. Soft tissues: Diffuse soft tissue edema. IMPRESSION: 1. Destructive change at the fifth MTP joint consistent with acute osteomyelitis. Pathologic fracture of the fifth proximal phalanx. 2. 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 3. Soft tissue ulceration adjacent to the fifth MTP joint. 4. Consider MRI for further evaluation. Electronically signed by: Mendel Lau MD 06/23/25 22:02 PM ECG Additional Comments: ECG. Atrial fibrillation with rapid ventricular response rate of 102.. ST and T wave abnormality inferior leads. QTc 432 Code Status & VTE Plan VTE Prophylaxis Plan VTE Prophylaxis will be ordered: Yes
[2025-06-24] MEDS ORDERED: GABAPENTIN 100 MG CAP PO PRN (02:01)
[2025-06-24] MEDS ORDERED: GLUCOSE 40% GEL 15 GM TUBE PO PRN (02:01)
[2025-06-24] MEDS ORDERED: NITROGLYCERIN SL 0.4 MG/TAB TAB SL PRN (02:01)
[2025-06-24] MEDS ORDERED: CARBOHYDRATES FOR HYPOGLYCEMIA PO PRN (02:01)
[2025-06-24] MEDS ORDERED: DEXTROSE 50% 50 ML SYRINGE IV PRN (02:01)
[2025-06-24] MEDS ORDERED: GLUCOSE 10 TAB/TUBE PO PRN (02:01)
[2025-06-24] MEDS ORDERED: GLUCAGON FOR INJ 1 MG VIAL SQ PRN (02:01)
--- NOTE | 2025-06-24 02:33 | CT Scan Report ---
EXAM: CT chest diagnostic wo con CLINICAL HISTORY: cough, pneumonia? TECHNIQUE: Contiguous axial CT images of the chest were acquired without administration of intravenous contrast. Coronal and sagittal reconstructions were obtained. One of the following dose reduction techniques were utilized for this exam: Automated exposure control, adjustment of the mA and/or kV according to patient size, use of iterative reconstruction. COMPARISON: Prior X-ray of the chest on 06/17/2025. A CT angiography of the chest on 02/15/2022 is also reviewed. FINDINGS: Lungs: Multiple bilateral nodules and patches of mixed ground glass and consolidative densities are seen scattered in both lungs, suggestive of an infective process (new). Areas of interlobular septal thickening are seen notably at the lower lung lobes, reflecting congestion. Mild right and minimal left pleural effusion (new). Mediastinum: Mild cardimegaly (stable). A double-lead pacemaker is seen in place (unchanged). A right-sided central venous line is seen; its tip is at the cavoatrial junction. The mediastinum is normal in size and contour. Atherosclerotic calcifications are seen. There are a few enlarged mediastinal lymph nodes, the largest is subcarinal, reaching 16mm in short axis, with interval size progression as compared to prior CT on 02/15/2022, features of a pathologically enlarged lymph node. PET-CT assessment is recommended if indicated clinically. Trachea and Main Bronchi: The trachea and main bronchi are patent without evidence of obstruction or abnormality. Chest Wall: The chest wall is unremarkable with no evidence of soft tissue or bony abnormalities. Upper Abdomen: Visualized portions of the liver, spleen, adrenal glands, and left kidney are unremarkable. Minimal stranding of the left perinephric fat. Bones: Sternotomy sutures are seen. Degenerative changes of the thoracic spine with exaggerated kyphosis and ossified anterior longitudinal ligament (unchanged). Additional data: Calcified nodule at the right thyroid gland (unchanged). IMPRESSION: Multiple bilateral nodules and patches of mixed ground glass and consolidative densities are seen scattered in both lungs, suggestive of an infective process (new). Mild right and minimal left pleural effusion (new). There are a few enlarged mediastinal lymph nodes, the largest is subcarinal, reaching 16mm in short axis, with interval size progression as compared to prior CT on 02/15/2022, features of a pathologically enlarged lymph node. PET-CT assessment is recommended if indicated clinically. Electronically signed by Lincoln Hewitt 06-24-2025 02:33 AM
--- NOTE | 2025-06-24 02:42 | Pharmacy Report ---
Pharmacy PK ABX Note - Date of Service June 24, 2025 - Assessment and Plan Assessment 85 year old F receiving vancomycin/Zosyn for treatment of confusion/left foot osteomyelitis/possible pneumonia. Pertinent microbiologic data includes: Negative MRSA Nasal Swab, blood cultures pending. Culture data from left foot 05/14/25 growing corynebacterium striatum. Follows with podiatry, wound care and infectious disease outpatient. Started on daptomycin outpatient approximately 5 days ago for osteomyelitis. Switched to vancomycin for lung coverage and Zosyn added for unclear source of confusion with leukocytosis, elevated CRP/ESR, and reported outpatient fevers. ID and podiatry consulted for inpatient recommendations. Day # 1 of vancomycin therapy. Plan Vancomycin * Loading dose: 2000 mg IV x 1 * Maintenance dose: 1250 mg IV every 24 hours * Regimen is predicted to achieve target AUC/KIRK of 400-600 mg/L.hr * Random level to be ordered if continued or change in patient clinical status. Pharmacy will continue to follow and will adjust dose/frequency as necessary. Thank you. Pharmacy has transitioned to AUC monitoring for vancomycin. AUC/KIRK is the preferred PK/PD target and is associated with decreased risk of nephrotoxicity compared to traditional trough targets.
[2025-06-24] MEDS: SODIUM CHLORIDE 0.9% 1,000 ML IV SCH (02:57)
[2025-06-24 05:04] LABS: Hematocrit (blood only) 39.3 % (37.0-47.0); Hemoglobin 12.9 g/dl (12.0-16.0); Immature Granulocytes # (auto) 0.10 K/uL (0.01-0.20); Immature Granulocytes % (auto) 0.7 %; Mean Corpuscular Hemoglobin 29.6 pg (25.0-34.0); Mean Corpuscular Volume 90.1 fL (80.0-100.0); Platelet Count 247 K/uL (130-400); RDW Standard Deviation 46.2 fL (36.4-46.3); Red Blood Count 4.36 M/uL (4.20-5.40); White Blood Count 15.24 K/ul (4.8-10.8)
[2025-06-24 05:17] LABS: Anion Gap 7.0 (3-11); Blood Urea Nitrogen 21.0 mg/dl (6-23); Calcium 8.2 mg/dl (8.6-10.3); Carbon Dioxide 26.0 mmol/L (21-32); Chloride 102.0 mmol/L (98-107); Creatine Kinase 35.0 U/L (26-192); Creatinine Clr Calc Pharmacy 36.6 ml/min; Glucose 140.0 mg/dl (70-99(Fasting)); Magnesium 1.9 mg/dl (1.7-2.4); Potassium 4.3 mmol/L (3.5-5.1); Sodium 135.0 mmol/L (136-145)
[2025-06-24 05:44] LABS: INR 1.5 (0.9-1.1); Prothrombin Time 15.5 Seconds (9.0-12.0)
[2025-06-24] MEDS: PIPERACILLIN/TAZOBACTAM 4.5 GM/100 ML BAG IV SCH (05:52)
[2025-06-24 07:59] LABS: Hemoglobin A1C 8.9 % (4.5-5.6)
[2025-06-24] MEDS: INSULIN ASPART PER UNIT CHARGE SC SCH (08:03)
[2025-06-24] MEDS: ASPIRIN 81 MG ECTAB PO SCH (08:40)
[2025-06-24] MEDS: MONTELUKAST SODIUM 10 MG TABLET PO SCH (08:40)
[2025-06-24] MEDS: CETIRIZINE HCL 10 MG TABLET PO SCH (08:40)
[2025-06-24] MEDS: METOPROLOL SUCC 50MG EXT REL TAB PO SCH (08:40)
[2025-06-24] MEDS: CHOLECALCIFEROL 25 MCG (1000 UNITS) TAB PO SCH (08:41)
[2025-06-24] MEDS: ROSUVASTATIN CALCIUM 20 MG TAB PO SCH (08:41)
[2025-06-24] MEDS: ISOSORBIDE MONO EXTENDED REL 30 MG TABCR PO SCH (08:41)
[2025-06-24] MEDS: DOXYCYCLINE HYCLATE 100 MG CAP PO SCH (08:42)
[2025-06-24] MEDS: LANTUS PER UNIT CHARGE SQ SCH (08:46)
--- NOTE | 2025-06-24 10:54 | Electrocardiogram Report ---
Test Reason : Blood Pressure : */* mmHG Vent. Rate : 102 BPM Atrial Rate : * BPM P-R Int : * ms QRS Dur : 76 ms QT Int : 332 ms P-R-T Axes : * 0 153 degrees QTcB Int : 432 ms Atrial fibrillation with rapid ventricular response Abnormal ECG When compared with ECG of 24-Oct-2024 17:14, Atrial fibrillation has replaced Electronic atrial pacemaker Vent. rate has increased by 42 bpm Inverted T waves have replaced nonspecific T wave abnormality in Inferior leads Confirmed by Michael West ([id number]) on 06/24/2025 10:54:33 AM Referred By: REFERRED SELF Confirmed By: Michael West
[2025-06-24] MEDS: ACETAMINOPHEN 1,000 MG/100 ML VIAL IV STA (11:33)
[2025-06-24] MEDS: guaiFENesin 600 MG TABCR PO SCH (11:52)
--- NOTE | 2025-06-24 12:34 | Podiatry Consultation ---
Date of Consultation June 24, 2025 Assessment & Plan (1) Confusion: (2) Osteomyelitis of foot: Laterality: left Osteomyelitis type: other acute Qualified Code(s): M86.172 - Other acute osteomyelitis, left ankle and foot (3) Diabetic foot ulcer with osteomyelitis: (4) PAD (peripheral artery disease): (5) Diabetic ulcer of left foot: Diabetes mellitus type: type 2 Diabetic foot ulcer location: toe Non-pressure ulcer stage: with fat layer exposed Qualified Code(s): E11.621 - Type 2 diabetes mellitus with foot ulcer; L97.522 - Non-pressure chronic ulcer of other part of left foot with fat layer exposed Plan Patient examined and evaluated. Chart reviewed. We again discussed that this bone infection is limb and life threatening, but that she could continue with IV antibiotics for treatment and "living with it" as she remains opposed to definitive fifth metatarsal resection. We would recommend the amputation, especially if these systemic symptoms are related to the osteomyelitis. If she is also suffering from pneumonia of other causes, as her states, perhaps treating that she could continue to live with this chronic osteomyelitis. We can add her on for surgery on if she elects for it or if she worsens and her chooses this route. Otherwise, if they continue to want to avoid surgery, we would defer to ID for antibiotics and [facility] similar daily for dress[facility]. Will continue to follow. History of Present Illness Reason for Consultation: Left foot osteomyelitis Attending Physician: Javier Gonzalez MD History of Present Illness Patient seen at bedside at lunchtime. States that over the weekend she began feeling sicker with increased drainage to the foot wound. She has felt weaker and nauseated without any improvement on IV antibiotics which she initiated a couple weeks ago, outpatient, with infectious disease. We have seen her for months with this fifth metatarsal ulceration. She believes it began with a scratch from her cat but it has failed to heal despite aggressive wound care and vascular assessment in the past. She has been seen by the wound care center as well, but with the underlying osteomyelitis clinically and on CT, we have discussed she would require amputation for definitive correction. SHe has not been amenable to this so far. Now, she presents here with her . He states that she has been more confused than her baseline, which is already a confused state. Further, after the last few hours, she has improved cognitively, he believes, back to her baseline. Allergies Allergy/AdvReac Type Severity Reaction Status Date / Time heparin Allergy Intermediate Hallucinati Verified 06/17/25 10:39 ng lisinopril Allergy Intermediate Cough Verified 06/17/25 10:39 cefazolin Allergy Unknown CEPHALEXIN-PT Verified 06/17/25 10:39 DOESN'T REMEMBER WHAT HAPPENED tetanus toxoid, adsorbed Allergy Unknown LOCAL Verified 06/17/25 10:39 REACTION/FEVER oxycodone AdvReac Unknown NAUSEA/STOMACH Verified 06/17/25 10:39 PAINS Home Medications Medication Instructions Recorded Confirmed Type albuterol sulfate 90 mcg/actuation 2 inh inhalation Q6H PRN Shortness 06/24/25 06/24/25 History aerosol inhaler Of Breath Or Wheezing aspirin 81 mg tablet,delayed 81 mg PO DAILY 06/24/25 06/24/25 History release cetirizine 10 mg tablet 10 mg PO DAILY 06/24/25 06/24/25 History cholecalciferol (vitamin D3) 50 50 mcg PO DAILY 06/24/25 06/24/25 History mcg (2,000 unit) capsule (Vitamin D3) daptomycin 500 mg intravenous 500 mg IV DAILY 06/24/25 06/24/25 History solution duloxetine 30 mg capsule,delayed 60 mg PO DAILY 06/24/25 06/24/25 History release empagliflozin 25 mg tablet 25 mg PO DAILY 06/24/25 06/24/25 History (Jardiance) furosemide 20 mg tablet 40 mg PO DAILY 06/24/25 06/24/25 History gabapentin 100 mg capsule 200 mg PO DAILY PRN leg pain 06/24/25 06/24/25 History insulin glargine 100 unit/mL (3 23 unit subcut DAILY 06/24/25 06/24/25 History mL) subcutaneous pen (Basaglar KwikPen U-100 Insulin) isosorbide mononitrate 30 mg 30 mg PO DAILY 06/24/25 06/24/25 History tablet,extended release 24 hr losartan 100 mg tablet 100 mg PO DAILY 06/24/25 06/24/25 History metoprolol succinate 50 mg 150 mg PO BID 06/24/25 06/24/25 History tablet,extended release 24 hr montelukast 10 mg tablet 10 mg PO DAILY 06/24/25 06/24/25 History nitroglycerin 0.4 mg sublingual 0.4 mg sublingual UD PRN Chest Pain 06/24/25 History tablet repaglinide 2 mg tablet 2 mg PO TIDWMEAL 06/24/25 06/24/25 History rosuvastatin 20 mg tablet 20 mg PO DAILY 06/24/25 06/24/25 History warfarin 2 mg tablet 2 mg PO UD 06/24/25 06/24/25 History Patient History Medical History Encounter for pre-operative examination History of pacemaker Surgical History Hx of CABG H/O: hysterectomy Hx of appendectomy Family History Aunt Diabetes Uncle Diabetes Daughter Diabetes Mother Hypertension Heart disease Father Hypertension Heart disease Social History Smoking Status: Never smoker Second Hand Exposure: No; Do You Dip or Chew Tobacco: No; Hx Alcohol Use: No Hx Substance Use: No Preferred Language: Hungarian Communication Ability: Effective Visual Impairment: Partially Limited Hearing Ability: Normal Manager Resort Required: No Beliefs That Will Affect Care: None marital status: Current Living Situation: Spouse Current Living Situation Comment: And friend with them current occupational status: retired Feels Safe at Home: Yes Diet: regular caffeine: Yes Assistive Devices: Denture - Upper Review of Systems Review of Systems: All systems reviewed & are unremarkable except as noted in HPI & below and Unobtainable due to cognitive status Constitutional: + fever and + weakness; no chills and no fatigue Eyes: no problem reported Ear, Nose, Mouth, Throat: no problem reported Respiratory: + chest congestion; no problem reported Cardiovascular: + edema; no problem reported Gastrointestinal: no nausea, no vomiting and no problem reported Genitourinary: no problem reported Musculoskeletal: no problem reported Integumentary: + skin ulcer, + wounds and + erythema Neurologic: + loss of sensation, + numbness and + pa resthesia; no generalized weakness Psychiatric: no problem reported Physical Exam Physical Exam: Lower extremity focused exam: DP/PT pulses nonpalpable. Advanced trophic changes noted with thin skin, absent hair growth, and distal cooling, other than to the lateral left foot which is locally erythematous with calor noted. Small, dry, deep probing wound noted directly overlying the fifth metatarsal head. There is scant purulent drainage. Left foot is erythematous with rubor noted. Wound is 1.2cm in diameter. Wound bed is 80% fibrotic, 20% bone. Nails globally dystrophic. Skin is dry. Global weakness/atrophy noted. Constitutional: WD/WN, vitals as above + ill appearing and + obese; no acute distress Eyes: PERRL, conjunctivae normal, anicteric sclerae ENMT: external ear and nose normal, oropharynx normal Neck: trachea midline, no thyromegaly normal visual inspection Respiratory: + abnormal respiratory effort and no res piratory distress On nasal cannula, no distress Cardiovascular: Rate/Rhythm: regular rate and regular rhythm Vessels: + posterior tibial pulses abnormal and + dorsalis pedis pulses abnormal Chest (Breasts): Chest: normal inspection of chest Gastrointestinal (Abdomen): Inspection/Auscultation: abdomen normal to inspection Percussion/Palpation: + abdomen tender and abdomen soft Musculoskeletal: no cyanosis or clubbing, extremities motor strength 5/5 Head/Neck/Chest: normocephalic and head atraumatic Extremities: extremities normal to inspection Neurologic: awake and + confused; + abnormal touch/pain/proprioception, + abnormal sensation to monofilament and no focal motor deficits Psychiatric: A+Ox3, euthymic affect Results & Data Vital Signs (Past 12 Hours) Vital Signs Temp Pulse Pulse Pulse Resp BP Pulse Ox 06/24/25 11:30 39.1 C H 108 H 28 H 108/70 93 06/24/25 09:00 06/24/25 08:46 102 H 06/24/25 08:38 38.7 C H 67 20 133/79 99 06/24/25 07:03 97 H 06/24/25 06:00 108 H 18 152/91 H 93 06/24/25 04:00 87 18 154/88 H 97 06/24/25 02:06 06/24/25 02:01 06/24/25 01:57 84 18 136/88 95 06/24/25 01:00 91 H 22 06/24/25 00:42 94 H 23 Pulse Ox O2 Del Method O2 Del Method O2 Flow Rate O2 Flow Rate 06/24/25 11:30 Nasal Cannula 2.5 06/24/25 09:00 Nasal Cannula 2.5 06/24/25 08:46 06/24/25 08:38 Room Air 06/24/25 07:03 06/24/25 06:00 Nasal Cannula 2 06/24/25 04:00 Nasal Cannula 2 06/24/25 02:06 Nasal Cannula 2 06/24/25 02:01 95 Nasal Cannula, High Flow Nasal Cannula 2 06/24/25 01:57 Nasal Cannula 2 06/24/25 01:00 06/24/25 00:42
[2025-06-24] MEDS: VANCOMYCIN HCL 1,250 MG in SODIUM CHLORIDE 0.9% 250 ML IV SCH (12:59)
[2025-06-24] MEDS: OPTIRAY 320 100ml IV ONE (15:29)
--- NOTE | 2025-06-24 15:53 | CT Scan Report ---
CT SCAN OF THE LEFT FOOT WITH IV CONTRAST CLINICAL HISTORY: Osteomyelitis. COMPARISON STUDY: CT of left foot dated 03/15/2025. Left foot x-rays dated 06/23/2025 TECHNIQUE: CT scan of the left foot is performed from the ankle to the base of the foot following th e IV administration of 93 cc of Optiray 320. Images are reviewed in the axial, sagittal, and coronal planes. IV contrast was administered without complication. A dose lowering technique was utilized ad kayleigh to the principles of ALARA. CT DOSE: 532. mGy.cm FINDINGS: The skeletal structures are osteopenic. Again seen is a chronic nonunited fracture through the base of the fifth metatarsal. There is bony erosion and fragmentation of the fifth metatarsal hea d/neck, as well as at the base of the fifth proximal phalanx typical for osteomyelitis with associate d pathologic fracture. There is a small surrounding fluid collection seen on axial image #256 which m easures 1.6 x 0.6 cm. This likely represents an abscess. There is overlying dermal thickening with pa tchy enhancement and inflammation. Question a small ulceration/wound. Milder soft tissue edema seen t hroughout the remainder of the foot. There is generalized atrophy of the regional musculature. Arthri tic change is noted throughout the foot. The tibiotalar articulation is maintained. There are dorsal and plantar heel spurs. The Achilles tendon is intact as imaged. There is atherosclerotic calcificati on of the regional arteries. IMPRESSION: 1. There is evidence of osteomyelitis involving the head/neck of the fifth metatarsal and the base of the fifth proximal phalanx with bony fragmentation/pathologic fracture. 2. There is evidence of surrounding cellulitis, with a small abscess around the fifth metatarsophalan geal joint. 3. No additional foci of osteomyelitis are clearly seen by CT. 4. 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 ACT 112: Negative or not required by law. Electronically signed by: Mushtaq Basilio M.D. 06/24/2025 3:52 PM
[2025-06-24] MEDS: WARFARIN SOD 1 MG TAB PO SCH (16:54)
[2025-06-24] MEDS: ALBUTEROL HFA 8 GM INHALER INH PRN (21:32)
--- NOTE | 2025-06-25 00:01 | XRay Report ---
Exam(s): XR CXR 1 VIEW EXAM: XR Chest, 1 View CLINICAL HISTORY: Reason for exam: sob. TECHNIQUE: Frontal view of the chest. Limited due to breathing/motion artifact. COMPARISON: CXR 06/23/25. FINDINGS: Lungs/Pleural space: Vascular prominence and mild progressive right lower lobe infiltrate, effusion or edema. Moderate breathing motion artifact limits evaluation. Left lung relatively clear. No pneumothorax. Heart: Stable pacemaker and mild cardiomegaly. Mediastinum: Unremarkable. Bones/Soft Tissues: No acute abnormality. Tubes/Lines: Right arm PICC catheter, tip cavoatrial junction, stable. IMPRESSION: 1. Progressive right lower lobe opacity, nonspecific, possible pneumonia and/or edema. Electronically signed by: Ximena Mosley M.D. 06/25/25 00:00 AM
[2025-06-25] MEDS: FUROSEMIDE 40 MG/4 ML VIAL IV ONE (00:03)
[2025-06-25 05:54] LABS: Hematocrit (blood only) 38.2 % (37.0-47.0); Hemoglobin 12.8 g/dl (12.0-16.0); Mean Corpuscular Hemoglobin 29.7 pg (25.0-34.0); Mean Corpuscular Volume 88.6 fL (80.0-100.0); Platelet Count 226 K/uL (130-400); RDW Standard Deviation 45.8 fL (36.4-46.3); Red Blood Count 4.31 M/uL (4.20-5.40); White Blood Count 14.94 K/ul (4.8-10.8)
[2025-06-25 06:11] LABS: Anion Gap 7.0 (3-11); Blood Urea Nitrogen 24.0 mg/dl (6-23); Calcium 8.3 mg/dl (8.6-10.3); Carbon Dioxide 24.0 mmol/L (21-32); Chloride 100.0 mmol/L (98-107); Creatinine Clr Calc Pharmacy 32.5 ml/min; Glucose 162.0 mg/dl (70-99(Fasting)); Magnesium 1.7 mg/dl (1.7-2.4); Potassium 3.5 mmol/L (3.5-5.1); Sodium 131.0 mmol/L (136-145)
[2025-06-25 06:22] LABS: INR 1.4 (0.9-1.1); Prothrombin Time 14.5 Seconds (9.0-12.0)
[2025-06-25] MEDS ORDERED: SODIUM PHOSPHATE 3 MMOL/1 ML INFUSION IV STA (07:49)
--- NOTE | 2025-06-25 07:50 | Hospitalist Progress Note ---
Date of Service June 25, 2025 Assessment & Plan (1) Confusion: Plan: 85-year-old female with past medical history significant for type 2 diabetes, CKD stage III, dyslipidemia, diabetic retinopathy, peripheral artery disease, nontoxic multinodular goiter, uncomplicated asthma, hypertension, persistent atrial fibrillation, pulmonary hypertension, osteoporosis, CAD status post CABG, status post pacemaker, osteomyelitis of left foot who lives at home with her and ambulates without support was brought in because of confusion. As per about 5 days ago patient was started IV daptomycin for osteomyelitis. Today she was sitting on the chair seemed confused. Not answering. When the decided to bring her to the hospital ,she woke up and resisted. Because of ongoing confusion was brought to the hospital. Currently patient is alert and awake and oriented to name and place. Could tell her age. Could not tell current dates. Patient denies any headache. Denies any chest pain. Denies shortness of breath. She says she always has cough. Denies nausea. Denies abdominal pain. States micturating okay. States moving her bowels okay. Per she also complained of left foot pain. thinks patient had fever. Hemodynamics are okay in the ER. Patient is following with wound care and podiatry for left foot diabetic ulcer. Left foot has osteomyelitis and it was thought that she was high risk for surgery and p laced on antibiotics as per the . She had a left lower extremity angiogram and revascularization done by Dr. Grey on 04/07/2025. Supposed to follow-up with [facility] in mid of July but seems patient was started on antibiotics daptomycin about 5 days back for six weeks. Confusion Seems improving Pneumonia on chest x-ray/ CT chest Has left foot osteomyelitis CT chest -Multiple bilateral nodules and patches of mixed ground glass and consolidative densities are seen scattered in both lungs, suggestive of an inf ective process (new). Mild right and minimal left pleural effusion (new). There are a few enlarged mediastinal lymph nodes, the largest is subcarinal, eaching 16mm in short axis, with interval size progression as compared to prior CT on 02/15/2022, features of a pathologically enlarged lymph node. PET-CT assessment is recommended if indicated clinically. CT left foot- 1. There is evidence of osteomyelitis involving the head/neck of the fifth metatarsal and the base of the fifth proximal phalanx with bony fragmentation/pathologic fracture.2. There is evidence of surrounding cellulitis, with a small abscess around the fifth metatarsophalangeal joint.3. No additional foci of osteomyelitis are clearly seen by CT.4. 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 At home, prior to admission was on IV daptomycin for left foot osteomyelitis as as per started about 5 days ago. As per to cover Corynebacterium Was changed to Zosyn and vancomycin in ED, doxycycline also added on admission IV fluids Will monitor Left foot osteomyelitis Antibiotics as above Podiatry and ID consult Per podiatry - pt declines surgery, cont. abx Per ID - recommend to obtain CT of left foot (see above), officially pt will be seen by ID today Diabetes Continue home long-acting insulin Hold p.o. medications Sliding scale Will monitor Sick sinus syndrome Status post pacemaker CAD Status post CABG On aspirin, statin, Imdur and metoprolol succinate Will monitor Hypertension Continue Imdur and metoprolol succinate Holding losartan and Lasix for now for ongoing infection Chronic diastolic CHF Holding Lasix Getting gentle fluids Monitor for volume overload A-fib Failed sotalol. Intolerant to amiodarone Currently on metoprolol succinate and Coumadin Monitor INR Hyperlipidemia On statin Peripheral artery disease Follows with vascular surgery On aspirin and statin History of asthma Continue home inhalers DVT prophylaxis On Coumadin Monitor INR Disposition Med/telemetry CODE STATUS DNR as per discussion of the admitting provider with the patient and confirms Admission and Anticipated Discharge Date Admission Date: June 24, 2025 Subjective Pt seen in follow up, has hx of osteomyelitis, has PICC line and was on daptomycin prior to her admission to the hospital On admission also diagnosed with pna WBC elevated, febrile yesterday. Cultx pending. Discussed with ID yesterday - recommend to cont. vanco, zosyn, doxy for now, Legionella urine ag also obtained. Pt to be seen by ID today. On my evaluation x2 yesterday - initially more drowsy, later more awake and able to answer questions. Initially also found tachypneic. lactate was rechecked, elevated at 2.6. She was transferred to PCU. Podiatry consulted and discussed with - pt declined surgery. ID recommended CT of her foot which was obtained. This AM pt is sitting up in bed in NAD. She reported shortness of breath overnight, received lasix by supervisor fusing room. Currently on NS but comfortable, not tachypneic. temp elev. at 37.7C. She is drowsy but able to answer simple questions appropriately. Denies any chest pain, shortness of breath, abd. pain at this time. RN at the bedside and discussed with. Review of Systems Review of Systems: All systems reviewed & are unremarkable except as noted in Subjective Physical Exam Physical Exam: General- WD/WN elderly F in NAD , on suppl. O2 Head- NC/AT. Eyes- PERRL. Neck- supple Lungs- + rhonchi, crackles, no wheezing Heart- + mild tachycardia, HR low 100s Abdomen- normal bowel sounds, soft, nontender, no distension Extremities- no pretibial edema, lateral left foot w/ulcer Neuro- awake, but drowsy, able to answer some simple questions appropriately, no facial palsy; no dysarthria; moves extremities Results & Data Results & Data Vital Signs (Past 12 Hours) Vital Signs Temp Pulse Pulse Resp BP Pulse Ox O2 Del Method 06/25/25 07:07 88 06/25/25 03:05 36.8 C 85 18 124/61 94 Nasal Cannula 06/24/25 22:59 97 06/24/25 22:59 107 H 06/24/25 21:51 36.8 C 107 H 20 128/71 95 Nasal Cannula 06/24/25 20:49 Nasal Cannula O2 Flow Rate 06/25/25 07:07 06/25/25 03:05 06/24/25 22:59 4 06/24/25 22:59 06/24/25 21:51 2 06/24/25 20:49 3 Laboratory Results 06/25/25 06/25/25 06/24/25 Range/Units 07:26 05:26 Unknown WBC 14.94 H (4.8-10.8) K/ul RBC 4.31 (4.20-5.40) M/uL Hgb 12.8 (12.0-16.0) g/dl Hct 38.2 (37.0-47.0) % MCV 88.6 (80.0-100.0) fL MCH 29.7 (25.0-34.0) pg MCHC 33.5 (32.0-36.0) g/dL RDW Std Deviation 45.8 (36.4-46.3) fL RDW Coeff of Alex 14.2 (11.5-14.5) % Plt Count 226 (130-400) K/uL MPV 9.4 (9.4-12.4) fL PT 14.5 H (9.0-12.0) Seconds INR 1.4 H (0.9-1.1) Sodium 131 L (136-145) mmol/L Potassium 3.5 (3.5-5.1) mmol/L Chloride 100 (98-107) mmol/L Carbon Dioxide 24 (21-32) mmol/L Anion Gap 7 (3-11) BUN 24 H (6-23) mg/dl Creatinine 1.26 H (0.6-1.2) mg/dl Est Cr Clr Drug Dosing 32.5 ml/min eGFR 42.36 BUN/Creatinine Ratio 19.0 (10-20) Glucose 162 H (70-99(Fasting)) mg/dl POC Glucose 146 H (70-99) mg/dl Estimat Average Glucose mg/dl Hemoglobin A1c (4.5-5.6) % Lactate (0.4-2.0) mmol/L Calcium 8.3 L (8.6-10.3) mg/dl Phosphorus 1.8 L (2.5-4.9) mg/dl Magnesium 1.7 (1.7-2.4) mg/dl Random Vancomycin 17.4 (10-20) mcg/ml Urine Legionella Ag Pending 06/24/25 06/24/25 06/24/25 Range/Units 20:08 16:14 14:35 WBC (4.8-10.8) K/ul RBC (4.20-5.40) M/uL Hgb (12.0-16.0) g/dl Hct (37.0-47.0) % MCV (80.0-100.0) fL MCH (25.0-34.0) pg MCHC (32.0-36.0) g/dL RDW Std Deviation (36.4-46.3) fL RDW Coeff of Alex (11.5-14.5) % Plt Count (130-400) K/uL MPV (9.4-12.4) fL PT (9.0-12.0) Seconds INR (0.9-1.1) Sodium (136-145) mmol/L Potassium (3.5-5.1) mmol/L Chloride (98-107) mmol/L Carbon Dioxide (21-32) mmol/L Anion Gap (3-11) BUN (6-23) mg/dl Creatinine (0.6-1.2) mg/dl Est Cr Clr Drug Dosing ml/min eGFR BUN/Creatinine Ratio (10-20) Glucose (70-99(Fasting)) mg/dl POC Glucose 249 H 228 H (70-99) mg/dl Estimat Average Glucose mg/dl Hemoglobin A1c (4.5-5.6) % Lactate 1.7 (0.4-2.0) mmol/L Calcium (8.6-10.3) mg/dl Phosphorus (2.5-4.9) mg/dl Magnesium (1.7-2.4) mg/dl Random Vancomycin (10-20) mcg/ml Urine Legionella Ag 06/24/25 06/24/25 06/24/25 Range/Units 12:02 11:35 04:35 WBC (4.8-10.8) K/ul RBC (4.20-5.40) M/uL Hgb (12.0-16.0) g/dl Hct (37.0-47.0) % MCV (80.0-100.0) fL MCH (25.0-34.0) pg MCHC (32.0-36.0) g/dL RDW Std Deviation (36.4-46.3) fL RDW Coeff of Alex (11.5-14.5) % Plt Count (130-400) K/uL MPV (9.4-12.4) fL PT (9.0-12.0) Seconds INR (0.9-1.1) Sodium (136-145) mmol/L Potassium (3.5-5.1) mmol/L Chloride (98-107) mmol/L Carbon Dioxide (21-32) mmol/L Anion Gap (3-11) BUN (6-23) mg/dl Creatinine (0.6-1.2) mg/dl Est Cr Clr Drug Dosing ml/min eGFR BUN/Creatinine Ratio (10-20) Glucose (70-99(Fasting)) mg/dl POC Glucose 110 H (70-99) mg/dl Estimat Average Glucose 209 mg/dl Hemoglobin A1c 8.9 H (4.5-5.6) % Lactate 2.6 H* (0.4-2.0) mmol/L Calcium (8.6-10.3) mg/dl Phosphorus (2.5-4.9) mg/dl Magnesium (1.7-2.4) mg/dl Random Vancomycin (10-20) mcg/ml Urine Legionella Ag Medications Administered Current Inpatient Medications Acetaminophen (Acetaminophen 325 Mg Tab) 650 mg PO Q4H PRN PRN Reason: Pain or Fever Stop: 07/24/25 02:00 Albuterol (Albuterol Hfa 8 Gm Inhaler) 2 puffs INH Q6H PRN PRN Reason: Shortness Of Breath Or Wheezing Stop: 07/24/25 02:00 Last Admin: 06/24/25 21:32 Dose: 2 puffs Aspirin (Aspirin 81 Mg Ectab) 81 mg PO DAILY LISS Stop: 07/24/25 08:59 Last Admin: 06/24/25 08:40 Dose: 81 mg Cetirizine HCl (Cetirizine Hcl 10 Mg Tablet) 10 mg PO DAILY LISS Stop: 07/24/25 08:59 Last Admin: 06/24/25 08:40 Dose: 10 mg Dextrose (Dextrose 50% 50 Ml Syringe) 25 - 50 ml IV UD PRN; Protocol PRN Reason: Hypoglycemia Protocol Stop: 07/24/25 02:00 Doxycycline Hyclate (Doxycycline Hyclate 100 Mg Cap) 100 mg PO BID LISS Stop: 06/29/25 08:59 Last Admin: 06/24/25 20:41 Dose: 100 mg Duloxetine HCl (Duloxetine Hcl 60 Mg Cap) 60 mg PO DAILY LISS Stop: 07/24/25 08:59 Last Admin: 06/24/25 08:41 Dose: 60 mg Gabapentin (Gabapentin 100 Mg Cap) 200 mg PO DAILY PRN PRN Reason: leg pain Stop: 07/24/25 02:00 Glucagon (Glucagon For Inj 1 Mg Vial) 1 mg SQ UD PRN; Protocol PRN Reason: Hypoglycemia Protocol Stop: 07/24/25 02:00 Glucose (Glucose 40% Gel 15 Gm Tube) 15 - 30 gm PO UD PRN; Protocol PRN Reason: Hypoglycemia Protocol Stop: 07/24/25 02:00 Glucose (Glucose 10 Tab/Tube) 4 - 8 tab PO UD PRN; Protocol PRN Reason: Hypoglycemia Protocol Stop: 07/24/25 02:00 Guaifenesin (Guaifenesin 600 Mg Tabcr) 600 mg PO Q12 LISS Stop: 07/24/25 11:09 Last Admin: 06/24/25 20:41 Dose: 600 mg Piperacillin Sod/Tazobactam Sod (Zosyn) 4.5 gm in 100 mls @ 25 mls/hr IV Q8H LISS; Protocol Stop: 07/01/25 05:59 Last Admin: 06/25/25 07:09 Dose: 25 mls/hr Vancomycin HCl 1,250 mg/ (Sodium Chloride) 275 mls @ 200 mls/hr IV Q24H [facility] Stop: 08/05/25 11:59 Last Infusion: 06/24/25 14:41 Dose: Infused Insulin Aspart (Insulin Aspart Per Unit Charge) 0 units SC ACHS LISS Stop: 07/24/25 07:29 Last Admin: 06/24/25 20:41 Dose: 4 units Insulin Glargine (Lantus Per Unit Charge) 23 units SQ DAILY LISS Stop: 07/24/25 08:59 Last Admin: 06/24/25 08:46 Dose: 23 units Isosorbide Mononitrate (Isosorbide [place] Extended Rel 30 Mg Tabcr) 30 mg PO DAILY [facility] Stop: 07/24/25 08:59 Last Admin: 06/24/25 08:41 Dose: 30 mg Metoprolol Succinate (Metoprolol Succ 50mg Ext Rel Tab) 150 mg PO BID LISS Stop: 07/24/25 08:59 Last Admin: 06/24/25 20:41 Dose: 150 mg Miscellaneous (Carbohydrates For Hypoglycemia ) 15 - 30 gm PO UD PRN PRN Reason: Hypoglycemia Protocol Stop: 07/24/25 02:00 Miscellaneous Information (Vancomycin Consult Active) 1 each N/A UD PRN PRN Reason: Consult Stop: 07/23/25 21:36 Montelukast Sodium (Montelukast Sodium 10 Mg Tablet) 10 mg PO DAILY [facility] Stop: 07/24/25 08:59 Last Admin: 06/24/25 08:40 Dose: 10 mg Nitroglycerin (Nitroglycerin Sl 0.4 Mg/Tab Tab) 0.4 mg SL Q5M PRN PRN Reason: Chest Pain Stop: 07/24/25 02:00 Polyethylene Glycol (Polyethylene (Miralax) 17 Gm Pack) 17 gm PO DAILY PRN PRN Reason: Constipation Stop: 07/24/25 02:00 Potassium Phosphate (Pot Phosphate Monobasic W/ Sod Tab) 1 tab PO QID [facility] Stop: 07/25/25 08:59 Rosuvastatin Calcium (Rosuvastatin Calcium 20 Mg Tab) 20 mg PO DAILY [facility] Stop: 07/24/25 08:59 Last Admin: 06/24/25 08:41 Dose: 20 mg Sodium Phosphate (Sodium Phosphate 3 Mmol/1 Ml Infusion) 6 mmol IV NOW STA Stop: 06/25/25 07:50 Vitamin D (Cholecalciferol 25 Mcg (1000 Units) Tab) 50 mcg PO DAILY [facility] Stop: 07/24/25 08:59 Last Admin: 06/24/25 08:41 Dose: 50 mcg Warfarin Sodium (Warfarin Sod 2 Mg Tab) 2 mg PO [email or web address] [facility] Stop: 07/25/25 15:59 Warfarin Sodium (Warfarin Sod 1 Mg Tab) 1 mg PO [email or web address] [facility] Stop: 07/24/25 15:59 Last Admin: 06/24/25 16:54 Dose: 1 mg
[2025-06-25] MEDS: ACETAMINOPHEN 325 MG TAB PO PRN (08:15)
--- NOTE | 2025-06-25 08:15 | Pharmacy Report ---
Pharmacy PK ABX Note - Date of Service June 25, 2025 - Assessment and Plan Assessment 06/25 * Random vancomycin level this AM was ~17 mcg/ml - current vancomycin dosing associated with goal AUC/KIRK. Scr trending upward, will monitor. Awaiting ID recs. 06/24 * 85 year old F receiving vancomycin/Zosyn for treatment of confusion/left foot osteomyelitis/possible pneumonia. Pertinent microbiologic data includes: Negative MRSA Nasal Swab, blood cultures pending. Culture data from left foot 05/14/25 growing corynebacterium striatum. * Follows with podiatry, wound care and infectious disease outpatient. Started on daptomycin outpatient approximately 5 days ago for osteomyelitis. Switched to vancomycin for lung coverage and Zosyn added for unclear source of confusion with leukocytosis, elevated CRP/ESR, and reported outpatient fevers. ID and podiatry consulted for inpatient recommendations. * Day # 1 of vancomycin therapy. Plan Vancomycin * Continue current regimen Pharmacy will continue to follow and will adjust dose/frequency as necessary. Thank you. Pharmacy has transitioned to AUC monitoring for vancomycin. AUC/KIRK is the preferred PK/PD target and is associated with decreased risk of nephrotoxicity compared to traditional trough targets.
[2025-06-25] MEDS: POT PHOSPHATE MONOBASIC W/ SOD TAB PO SCH (08:16)
[2025-06-25] MEDS: SODIUM PHOSPHATE 6 MMOL in SODIUM CHLORIDE 0.9% 100 ML IV ONE (08:46)
--- NOTE | 2025-06-25 10:21 | Infectious Disease Consult ---
Date of Service June 25, 2025 Telehealth Information I performed this visit using a real-time telehealth connection between my location and the patients location ([facility]). After connecting through interactive tele-video, patient was identified by name and date of and/or wristband check.Patient (or authorized healthcare account executive sales representative) was informed that this was a telemedicine visit and it was being conducted confidentially over secure lines. My office door was closed and no one else was present in the room with me.Patient (or authorized healthcare account executive sales representative) provided consent to proceed with the visit, expressed an understanding of privacy and security of the telemedicine visit, and gave permission to have a hospital account executive sales representative in the room in order to assist with the visit and to conduct portions of the visit, as needed. I informed the patient (or authorized healthcare account executive sales representative) that I reviewed their record and presented the opportunity for them to ask any questions regarding the visit today. The patient agreed to participate. Reason for Consult : osteomyelitis Assessment & Plan (1) Confusion: Plan: Likely secondary to sepsis (2) Osteomyelitis of foot: Plan: needs surgery Plan Patient with left foot osteomyelitis who has refused surgery and was started on IV daptomycin because of her left foot infection but developed AMS and SOB after 5 days and has been admitted and switched to zosyn ,vancomycin and doxycycline .Her CT chest is concerning for a respiratory infection for which I would recommend obtaining respiratory cultures and urine for legionella and strep pneumoniae.Discontinue zosyn and doxycycline if these studies are negative and continue vancomycin .ID will continue to follow but I believe the patient needs surgery of her left foot and the infection will not resolve with antibiotics only amd her respiratory issues could be daptomycin induced .Thank you for allowing us to participate in the care of this patient ID will continue to follow History of Present Illness History of Present Illness 85 y/o F PMHx type 2 diabetes, CKD stage III, dyslipidemia, diabetic retinopathy, peripheral artery disease, nontoxic multinodular goiter, uncomplicated asthma, hypertension, persistent atrial fibrillation, pulmonary hypertension, osteoporosis, CAD status post CABG, status post pacemaker, osteomyelitis of left foot who lives at home with her and ambulates without support was brought in because of confusion. As per about 5 days ago patient was started IV daptomycin for osteomyelitis. Today she was sitting on the chair seemed confused and not responding to questions. Patient did not want to come to the hospital and resisted when her tried to bring her to the ER but he persevered.In the ER she was confused and per she also complained of left foot pain. Patient is following with wound care and podiatry for left foot diabetic ulcer and osteomyelitis.Despite having left foot osteomyelitis she has not had surgery because she was thought to be high risk for surgery and placed on antibiotics.She had a left lower extremity angiogram and revascularization done by Dr. Grey on 04/07/2025. The patient has a follow up with ID at [facility] in July but has already been started on IV daptomycin 5 days prior to admission for 6 weeks to follow-up with [facility] ID in mid of July but seems patient was started on IV Daptomycin for 6 weeks. Allergies Allergy/AdvReac Type Severity Reaction Status Date / Time heparin Allergy Intermediate Hallucinati Verified 06/17/25 10:39 ng lisinopril Allergy Intermediate Cough Verified 06/17/25 10:39 cefazolin Allergy Unknown CEPHALEXIN-PT Verified 06/17/25 10:39 DOESN'T REMEMBER WHAT HAPPENED tetanus toxoid, adsorbed Allergy Unknown LOCAL Verified 06/17/25 10:39 REACTION/FEVER oxycodone AdvReac Unknown NAUSEA/STOMACH Verified 06/17/25 10:39 PAINS Home Medications Medication Instructions Recorded Confirmed Type albuterol sulfate 90 mcg/actuation 2 inh inhalation Q6H PRN Shortness 06/24/25 06/24/25 History aerosol inhaler Of Breath Or Wheezing aspirin 81 mg tablet,delayed 81 mg PO DAILY 06/24/25 06/24/25 History release cetirizine 10 mg tablet 10 mg PO DAILY 06/24/25 06/24/25 History cholecalciferol (vitamin D3) 50 50 mcg PO DAILY 06/24/25 06/24/25 History mcg (2,000 unit) capsule (Vitamin D3) daptomycin 500 mg intravenous 500 mg IV DAILY 06/24/25 06/24/25 History solution duloxetine 30 mg capsule,delayed 60 mg PO DAILY 06/24/25 06/24/25 History release empagliflozin 25 mg tablet 25 mg PO DAILY 06/24/25 06/24/25 History (Jardiance) furosemide 20 mg tablet 40 mg PO DAILY 06/24/25 06/24/25 History gabapentin 100 mg capsule 200 mg PO DAILY PRN leg pain 06/24/25 06/24/25 History insulin glargine 100 unit/mL (3 23 unit subcut DAILY 06/24/25 06/24/25 History mL) subcutaneous pen (Estefaniaar Melvin U-100 Insulin) isosorbide mononitrate 30 mg 30 mg PO DAILY 06/24/25 06/24/25 History tablet,extended release 24 hr losartan 100 mg tablet 100 mg PO DAILY 06/24/25 06/24/25 History metoprolol succinate 50 mg 150 mg PO BID 06/24/25 06/24/25 History tablet,extended release 24 hr montelukast 10 mg tablet 10 mg PO DAILY 06/24/25 06/24/25 History nitroglycerin 0.4 mg sublingual 0.4 mg sublingual UD PRN Chest Pain 06/24/25 06/24/25 History tablet repaglinide 2 mg tablet 2 mg PO TIDWMEAL 06/24/25 06/24/25 History rosuvastatin 20 mg tablet 20 mg PO DAILY 06/24/25 06/24/25 History warfarin 2 mg tablet 2 mg PO UD 06/24/25 06/24/25 History Patient History Medical History Encounter for pre-operative examination History of pacemaker Surgical History Hx of CABG H/O: hysterectomy Hx of appendectomy Family History Aunt Diabetes Uncle Diabetes Daughter Diabetes Mother Hypertension Heart disease Father Hypertension Heart disease Social History Smoking Status: Never smoker Second Hand Exposure: No; Do You Dip or Chew Tobacco: No; Hx Alcohol Use: No Hx Substance Use: No Preferred Language: Luxembourger Communication Ability: Impaired Visual Impairment: Partially Limited Hearing Ability: Normal Protection Specialist Required: No Beliefs That Will Affect Care: None marital status: Current Living Situation: Spouse Current Living Situation Comment: And friend with them current occupational status: retired Feels Safe at Home: Yes Diet: regular caffeine: Yes Assistive Devices: Other Review of Systems lethargic Physical Exam Awake and responds to questions but lethargic Results & Data Vital Signs (Past 12 Hours) Vital Signs Temp Pulse Pulse Pulse Resp BP Pulse Ox 06/25/25 08:45 06/25/25 07:22 37.7 C H 102 H 18 134/75 93 06/25/25 07:07 88 06/25/25 03:05 36.8 C 85 18 124/61 94 06/24/25 22:59 97 06/24/25 22:59 107 H O2 Del Method O2 Flow Rate 06/25/25 08:45 Nasal Cannula 2 06/25/25 07:22 Nasal Cannula 2.5 06/25/25 07:07 06/25/25 03:05 Nasal Cannula 06/24/25 22:59 4 06/24/25 22:59 Laboratory Results WBC 88374 Gram Stain Final 05/14/25-2130 Gram Stain Result No WBCs Seen Rare Gram Negative Bacilli Rare Gram Positive Cocci Surface Wound Culture Final 05/16/25-1007 Organism 1 Corynebacterium striatum group Probable Organism Identification Quantity Few Sens No Sensitivities to Follow Diagnostic Findings IMPRESSION: 1. There is evidence of osteomyelitis involving the head/neck of the fifth metatarsal and the base of the fifth proximal phalanx with bony fragmentation/pathologic fracture. 2. There is evidence of surrounding cellulitis, with a small abscess around the fifth metatarsophalangeal joint. 3. No additional foci of osteomyelitis are clearly seen by CT.FINDINGS: Lungs: Multiple bilateral nodules and patches of mixed ground glass and consolidative densities are seen scattered in both lungs, suggestive of an infective process (new). Areas of interlobular septal thickening are seen notably at the lower lung lobes, reflecting congestion. Mild right and minimal left pleural effusion (new). Mediastinum: Mild cardimegaly (stable). A double-lead pacemaker is seen in place (unchanged). A right-sided central venous line is seen; its tip is at the cavoatrial junction. The mediastinum is normal in size and contour. Atherosclerotic calcifications are seen. There are a few enlarged mediastinal lymph nodes, the largest is subcarinal, reaching 16mm in short axis, with interval size progression as compared to prior CT on 02/15/2022, features of a pathologically enlarged lymph node. PET-CT assessment is recommended if indicated clinically. 4. 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 (2) Osteomyelitis of foot Laterality: left Osteomyelitis type: other acute Qualified Code(s): M86.172 - Other acute osteomyelitis, left ankle and foot
--- NOTE | 2025-06-25 15:42 | Podiatry Progress Note ---
Date of Service June 25, 2025 Assessment & Plan (1) Confusion: (2) Osteomyelitis of foot: (3) Diabetic foot ulcer with osteomyelitis: (4) PAD (peripheral artery disease): (5) Diabetic ulcer of left foot: Plan Patient examined and evaluated. - Discussed at length etiology and treatment of her left foot osteomyelitis. - Discussed that definitive treatment would be via resection of the fifth toe and metatarsal head. - ID draft note at the time suggests she may not be a candidate for detention IV antibiotics and agree that surgery is more prudent. - Discussed the procedure at length with patient and family and are leaning toward surgery tomorrow, pending definitive consult with ID. - Will likely primarily close surgical site and d/c home Monday, if stable and clean margins obtained. - WIll continue to follow. Admission and Anticipated Discharge Date Admission Date: June 24, 2025 Subjective Pt seen at bedside at lunch time, with present and family on the phone. Concerned about what care she needs and confused about benefits/risks of surgery and antibiotics. State that they have not talked to infectious disease doctors on this admission. Otherwise, she denies any worsening symptoms. Her is consistent that she is more alert and oriented than she was yesterday. Review of Systems Constitutional: + fever and + weakness; no chills and no fatigue Eyes: no problem reported Ear, Nose, Mouth, Throat: no problem reported Respiratory: + chest congestion; no problem reported Cardiovascular: + edema; no problem reported Gastrointestinal: no nausea, no vomiting and no problem reported Genitourinary: no problem reported Musculoskeletal: no problem reported Integumentary: + skin ulcer, + wounds and + erythema Neurologic: + loss of sensation, + numbness and + pa resthesia; no generalized weakness Psychiatric: no problem reported Physical Exam Physical Exam: Lower extremity focused exam: DP/PT pulses nonpalpable. Advanced trophic changes noted with thin skin, absent hair growth, and distal cooling, other than to the lateral left foot which is locally erythematous with calor noted. Small, dry, deep probing wound noted directly overlying the fifth metatarsal head. There is scant purulent drainage. Left foot is erythematous with rubor noted. Wound is 1.2cm in diameter. Wound bed is 80% fibrotic, 20% bone. Nails globally dystrophic. Skin is dry. Global weakness/atrophy noted. Constitutional: WD/WN, vitals as above + ill appearing and + obese; no acute distress Eyes: PERRL, conjunctivae normal, anicteric sclerae ENMT: external ear and nose normal, oropharynx normal Neck: trachea midline, no thyromegaly normal visual inspection Respiratory: + abnormal respiratory effort and no res piratory distress Cardiovascular: Rate/Rhythm: regular rate and regular rhythm Vessels: + posterior tibial pulses abnormal and + dorsalis pedis pulses abnormal Chest (Breasts): Chest: normal inspection of chest Gastrointestinal (Abdomen): Inspection/Auscultation: abdomen normal to inspection Percussion/Palpation: + abdomen tender and abdomen soft Musculoskeletal: no cyanosis or clubbing, extremities motor strength 5/5 Head/Neck/Chest: normocephalic and head atraumatic Extremities: extremities normal to inspection Neurologic: awake and + confused; + abnormal touch/pain/proprioception, + abnormal sensation to monofilament and no focal motor deficits Psychiatric: A+Ox3, euthymic affect Results & Data Results & Data Vital Signs (Past 12 Hours) Vital Signs Temp Pulse Pulse Resp BP Pulse Ox O2 Del Method 06/25/25 14:08 79 06/25/25 11:21 36.5 C 82 19 105/63 95 Nasal Cannula 06/25/25 10:45 36.6 C 06/25/25 08:45 Nasal Cannula 06/25/25 07:22 37.7 C H 102 H 18 134/75 93 Nasal Cannula 06/25/25 07:07 88 O2 Flow Rate 06/25/25 14:08 06/25/25 11:21 2.5 06/25/25 10:45 06/25/25 08:45 2 06/25/25 07:22 2.5 06/25/25 07:07 (2) Osteomyelitis of foot Laterality: left Osteomyelitis type: other acute Qualified Code(s): M86.172 - Other acute osteomyelitis, left ankle and foot (5) Diabetic ulcer of left foot Diabetic foot ulcer location: toe Diabetes mellitus type: type 2 Non- pressure ulcer stage: with fat layer exposed Qualified Code(s): E11.621 - Type 2 diabetes mellitus with foot ulcer; L97.522 - Non-pressure chronic ulcer of other part of left foot with fat layer exposed
[2025-06-25] MEDS: WARFARIN SOD 2 MG TAB PO SCH (16:52)
[2025-06-26 05:48] LABS: Hematocrit (blood only) 37.4 % (37.0-47.0); Hemoglobin 12.6 g/dl (12.0-16.0); Mean Corpuscular Hemoglobin 29.9 pg (25.0-34.0); Mean Corpuscular Volume 88.8 fL (80.0-100.0); Platelet Count 235 K/uL (130-400); RDW Standard Deviation 45.4 fL (36.4-46.3); Red Blood Count 4.21 M/uL (4.20-5.40); White Blood Count 13.98 K/ul (4.8-10.8)
[2025-06-26 06:04] LABS: Anion Gap 7.0 (3-11); Blood Urea Nitrogen 25.0 mg/dl (6-23); Calcium 8.3 mg/dl (8.6-10.3); Carbon Dioxide 24.0 mmol/L (21-32); Chloride 101.0 mmol/L (98-107); Creatinine Clr Calc Pharmacy 33.9 ml/min; Glucose 100.0 mg/dl (70-99(Fasting)); Magnesium 1.6 mg/dl (1.7-2.4); Potassium 3.7 mmol/L (3.5-5.1); Sodium 132.0 mmol/L (136-145)
[2025-06-26 06:17] LABS: INR 1.5 (0.9-1.1); Prothrombin Time 15.7 Seconds (9.0-12.0)
[2025-06-26] MEDS: NYSTATIN POWDER 15GM BTL EXT SCH (06:49)
[2025-06-26] MEDS ORDERED: DEXAMETHASONE SOD INJ 4 MG/ML VIAL ONE (10:39)
[2025-06-26] MEDS ORDERED: LIDOCAINE 2% 2 ML VIAL/AMP(20MG/ML) INFIL ONE (10:39)
[2025-06-26] MEDS ORDERED: ONDANSETRON INJ 2 MG/ML 2 ML VIAL ONE (10:39)
[2025-06-26] MEDS ORDERED: PROPOFOL IV EMULSION 10 MG/ML 20 ML VIAL IV ONE (10:39)
--- NOTE | 2025-06-26 11:14 | History & Physical Bridge Note ---
Date of Service June 26, 2025 History & Physical Bridge Note I have examined the patient, reviewed the History & Physical and in the interval since the performance of the History & Physical I have noted the following changes of clinical significance: no changes noted. All questions answered. Preoperative instructions, postoperative instructions, relative risks, and outcomes were all discussed. Consent for this left fifth ray resection obtained at bedside with and nursing present.
[2025-06-26] MEDS ORDERED: ATROPINE SULFATE 0.1 MG/ML 10ML SYR IV PRN (11:17)
[2025-06-26] MEDS ORDERED: ONDANSETRON INJ 2 MG/ML 2 ML VIAL IV PRN (11:17)
--- NOTE | 2025-06-26 11:17 | Anesthesiology Consultation ---
Date of Service June 26, 2025 Assessment & Plan (1) Encounter for pre-operative examination: Chart Review Chart Review: Acceptable Risk for Surgery and Patient NOT seen in Pre Admission Testing Consults Requested none History Surgery Operation Date: 06/26/25 10:55 Proposed Procedures p Left Fifth Ray Partial Resection - Js Chamorro, DOROTA Height/Weight Height: 5 ft 2 in Weight: 69.626 kg Allergies Allergy/AdvReac Type Severity Reaction Status Date / Time heparin Allergy Intermediate Hallucinati Verified 06/17/25 10:39 ng lisinopril Allergy Intermediate Cough Verified 06/17/25 10:39 cefazolin Allergy Unknown CEPHALEXIN-PT Verified 06/17/25 10:39 DOESN'T REMEMBER WHAT HAPPENED tetanus toxoid, adsorbed Allergy Unknown LOCAL Verified 06/17/25 10:39 REACTION/FEVER oxycodone AdvReac Unknown NAUSEA/STOMACH Verified 06/17/25 10:39 PAINS Medications Home Medications Medication Instructions Recorded Confirmed Last Taken albuterol sulfate 90 mcg/actuation 2 inh inhalation Q6H PRN Shortness 06/24/25 06/24/25 Unknown aerosol inhaler Of Breath Or Wheezing aspirin 81 mg tablet,delayed 81 mg PO DAILY 06/24/25 06/24/25 Unknown release cetirizine 10 mg tablet 10 mg PO DAILY 06/24/25 06/24/25 Unknown cholecalciferol (vitamin D3) 50 50 mcg PO DAILY 06/24/25 06/24/25 Unknown mcg (2,000 unit) capsule (Vitamin D3) daptomycin 500 mg intravenous 500 mg IV DAILY 06/24/25 06/24/25 Unknown solution duloxetine 30 mg capsule,delayed 60 mg PO DAILY 06/24/25 06/24/25 Unknown release empagliflozin 25 mg tablet 25 mg PO DAILY 06/24/25 06/24/25 Unknown (Jardiance) furosemide 20 mg tablet 40 mg PO DAILY 06/24/25 06/24/25 Unknown gabapentin 100 mg capsule 200 mg PO DAILY PRN leg pain 06/24/25 06/24/25 Unknown insulin glargine 100 unit/mL (3 23 unit subcut DAILY 06/24/25 06/24/25 Unknown mL) subcutaneous pen (Basaglar KwikPen U-100 Insulin) isosorbide mononitrate 30 mg 30 mg PO DAILY 06/24/25 06/24/25 Unknown tablet,extended release 24 hr losartan 100 mg tablet 100 mg PO DAILY 06/24/25 06/24/25 Unknown metoprolol succinate 50 mg 150 mg PO BID 06/24/25 06/24/25 Unknown tablet,extended release 24 hr montelukast 10 mg tablet 10 mg PO DAILY 06/24/25 06/24/25 Unknown nitroglycerin 0.4 mg sublingual 0.4 mg sublingual UD PRN Chest Pain 06/24/25 06/24/25 Unknown tablet repaglinide 2 mg tablet 2 mg PO TIDWMEAL 06/24/25 06/24/25 Unknown rosuvastatin 20 mg tablet 20 mg PO DAILY 06/24/25 06/24/25 Unknown warfarin 2 mg tablet 2 mg PO UD 06/24/25 06/24/25 Unknown Active Medications Generic Name Dose Route Start Last Admin Trade Name Freq PRN Reason Stop Dose Admin Acetaminophen 650 mg 06/24/25 02:01 06/25/25 08:15 Acetaminophen 325 Mg Tab PO 07/24/25 02:00 650 mg Q4H PRN Administration Pain or Fever Albuterol 2 puffs 06/24/25 02:01 06/24/25 21:32 Albuterol Hfa 8 Gm Inhaler INH 07/24/25 02:00 2 puffs Q6H PRN Administration Shortness Of Breath Or Wheezing Aspirin 81 mg 06/24/25 09:00 06/25/25 08:18 Aspirin 81 Mg Ectab PO 07/24/25 08:59 81 mg DAILY LISS Administration Cetirizine HCl 10 mg 06/24/25 09:00 06/25/25 08:17 Cetirizine Hcl 10 Mg Tablet PO 07/24/25 08:59 10 mg DAILY LISS Administration Doxycycline Hyclate 100 mg 06/24/25 09:00 06/25/25 19:56 Doxycycline Hyclate 100 Mg Cap PO 06/29/25 08:59 100 mg BID LISS Administration Duloxetine HCl 60 mg 06/24/25 09:00 06/25/25 08:17 Duloxetine Hcl 60 Mg Cap PO 07/24/25 08:59 60 mg DAILY LISS Administration Guaifenesin 600 mg 06/24/25 11:10 06/25/25 19:56 Guaifenesin 600 Mg Tabcr PO 07/24/25 11:09 600 mg Q12 LISS Administration Piperacillin Sod/Tazobactam Sod 4.5 gm in 100 mls @ 25 mls/hr 06/24/25 06:00 06/26/25 09:11 Zosyn IV 07/01/25 05:59 Infused Q8H LISS Infusion Protocol Vancomycin HCl 1,250 mg/ 275 mls @ 200 mls/hr 06/24/25 12:00 06/25/25 13:46 Sodium Chloride IV 08/05/25 11:59 Infused Q24H LISS Infusion Insulin Aspart 0 units 06/24/25 07:30 06/26/25 06:11 Insulin Aspart Per Unit Charge SC 07/24/25 07:29 Not Given ACHS LISS Insulin Glargine 23 units 06/24/25 09:00 06/26/25 10:40 Lantus Per Unit Charge SQ 07/24/25 08:59 Not Given DAILY LISS Isosorbide Mononitrate 30 mg 06/24/25 09:00 06/25/25 08:17 Isosorbide [place] Extended Rel 30 Mg Tabcr PO 07/24/25 08:59 30 mg DAILY LISS Administration Metoprolol Succinate 150 mg 06/24/25 09:00 06/25/25 19:55 Metoprolol Succ 50mg Ext Rel Tab PO 07/24/25 08:59 150 mg BID LISS Administration Montelukast Sodium 10 mg 06/24/25 09:00 06/25/25 08:18 Montelukast Sodium 10 Mg Tablet PO 07/24/25 08:59 10 mg DAILY LISS Administration Nystatin 1 appln 06/26/25 06:00 06/26/25 06:49 Nystatin Powder 15gm Btl EXT 07/26/25 05:59 1 appln BID LISS Administration Potassium Phosphate 1 tab 06/25/25 09:00 06/25/25 19:56 Pot Phosphate Monobasic W/ Sod Tab PO 07/25/25 08:59 1 tab QID LISS Administration Rosuvastatin Calcium 20 mg 06/24/25 09:00 06/25/25 08:18 Rosuvastatin Calcium 20 Mg Tab PO 07/24/25 08:59 20 mg DAILY LISS Administration Vitamin D 50 mcg 06/24/25 09:00 06/25/25 08:17 Cholecalciferol 25 Mcg (1000 Units) Tab PO 07/24/25 08:59 50 mcg DAILY LISS Administration Warfarin Sodium 2 mg 06/25/25 16:00 06/25/25 16:52 Warfarin Sod 2 Mg Tab PO 07/25/25 15:59 2 mg [id number] LISS Administration Warfarin Sodium 1 mg 06/24/25 16:00 06/24/25 16:54 Warfarin Sod 1 Mg Tab PO 07/24/25 15:59 1 mg [id number] LISS Administration NPO Date Last Intake of Fluids: 06/25/25 Time Last Intake of Fluids: 23:00 Last Intake of Fluids Comment: 1020 sip diet coke, Anesthesia aware Date Last Intake of Solids: 06/25/25 Time Last Intake of Solids: 23:00 Past Medical History Medical History Encounter for pre-operative examination History of pacemaker Past Family History Family History Aunt Diabetes Uncle Diabetes Daughter Diabetes Mother Hypertension Heart disease Father Hypertension Heart disease Past Surgical History Surgical History Hx of CABG H/O: hysterectomy Hx of appendectomy Social History Smoking Status: Never smoker Do You Dip or Chew Tobacco: No Hx Alcohol Use: No Hx Substance Use: No Physical Exam Vital Signs Last Vital Signs Temp 98.1 F 06/26/25 11:06 Pulse 93 H 06/26/25 11:06 Resp 20 06/26/25 11:06 BP 165/77 H 06/26/25 11:06 Pulse Ox 94 06/26/25 11:06 O2 Del Method Room Air 06/26/25 11:06 O2 Flow Rate 2 06/26/25 11:06 Testing Laboratory Results 06/26/25 05:29 06/26/25 05:29 PT 15.7 Seconds (9.0-12.0) H 06/26/25 05:29 INR 1.5 (0.9-1.1) H 06/26/25 05:29 APTT 40 Seconds (21-31) H 06/23/25 19:32 Hemoglobin A1c 8.9 % (4.5-5.6) H 06/24/25 04:35 Urine Color Yellow 06/23/25 19:46 Urine Appearance Clear (Clear) 06/23/25 19:46 Urine pH 7.5 (4.5-7.5) 06/23/25 19:46 Ur Specific [place] 1.030 (1.000-1.030) 06/23/25 19:46 Urine Protein 2+ (Negative) H 06/23/25 19:46 Urine Glucose (UA) 3+ (Negative) H 06/23/25 19:46 Urine Ketones Negative (Negative) 06/23/25 19:46 Urine Nitrite Negative (Negative) 06/23/25 19:46 Ur Leukocyte Esterase Negative (Negative) 06/23/25 19:46 Urine WBC (Auto) 0-5 /hpf (0-5) 06/23/25 19:46 Urine RBC (Auto) 0-2 /hpf (0-2) 06/23/25 19:46 U Hyaline Cast (Auto) 0-2 /lpf (0-2) 06/23/25 19:46 U Epithel Cells (Auto) 0-2 /hpf (0-2) 06/23/25 19:46 Urine Bacteria (Auto) None Seen (None Seen) 06/23/25 19:46 06/23/25 20:03 Aerobic Blood Culture - Preliminary Blood No growth in Aerobic bottle after 48 hours. Anaerobic Blood Culture - Preliminary No growth in Anaerobic bottle after 48 hours. 06/23/25 19:32 Aerobic Blood Culture - Preliminary Blood No growth in Aerobic bottle after 48 hours. Anaerobic Blood Culture - Preliminary No growth in Anaerobic bottle after 48 hours. 06/26/25 11:11 POC Glucose 112 H Electrocardiogram Date: 06/23/25 Findings: + PATRICK @
[2025-06-26] MEDS: BUPIVACAINE 0.5 % 5 MG/1 ML MPF 30ML VIAL ONE (11:46)
--- NOTE | 2025-06-26 12:15 | Post Operative Brief Note ---
Immediate Post Op Note Date of Surgery June 26, 2025 Pre & Post Diagnosis Operation Date: 06/26/25 10:55 Pre-Op Diagnosis: OSTEOMYELITIS Post-Op Diagnosis: OSTEOMYELITIS I identified the patient and participated in the time-out.: Yes Procedure Operation Date: 06/26/25 10:55 Actual Procedures p Left Fifth Ray Partial Resection(Left) - Js Chamorro DPM Surgeon Js Chamorro DPM Hopper Operator None Estimated Blood Loss 10 Findings Consistent with Post-Op Diagnosis Fracture of metatarsal at surgical neck consistent with chronic osteomyelitis Specimens Left fifth metatarsal bone culture Left fifth metatarsal proximal margin pathology Left fifth toe gross pathology Drains Rodriguez Catheter Anesthesia Type MAC Complications none Disposition Accompanied Patient To Recovery: Yes Disposition: Recovery Room
--- NOTE | 2025-06-26 12:59 | Anesthesiology Progress Note ---
Date of Service June 26, 2025 Anesthesia Post Procedure Vital Signs Vital Signs: Temp Pulse Pulse Pulse Resp BP Pulse Ox 06/26/25 12:40 36.9 C 96 H 20 145/80 H 95 06/26/25 12:30 97 H 20 124/79 93 06/26/25 12:19 36 C L 98 H 14 128/97 95 06/26/25 11:06 36.7 C 93 H 20 165/77 H 94 06/26/25 08:45 06/26/25 07:56 36.7 C 99 H 18 144/72 H 92 06/26/25 02:43 36.7 C 100 H 18 140/73 94 06/25/25 22:40 37.3 C 92 H 18 140/78 92 06/25/25 21:48 66 06/25/25 20:22 06/25/25 19:20 36.6 C 85 18 140/81 96 06/25/25 19:00 06/25/25 15:53 36.6 C 72 18 125/73 97 06/25/25 14:08 79 O2 Del Method O2 Del Method O2 Flow Rate 06/26/25 12:40 Nasal Cannula 2 06/26/25 12:30 Nasal Cannula 2 06/26/25 12:19 Oxymask 6 06/26/25 11:06 Room Air 2 06/26/25 08:45 Nasal Cannula 2 06/26/25 07:56 Nasal Cannula 2 06/26/25 02:43 Nasal Cannula 06/25/25 22:40 Nasal Cannula 06/25/25 21:48 06/25/25 20:22 Nasal Cannula 2 06/25/25 19:20 Nasal Cannula 06/25/25 19:00 Nasal Cannula 06/25/25 15:53 Nasal Cannula 2.5 06/25/25 14:08 Transfer of Care Handoff Completed per policy Notes Mental Status: alert / awake / arousable Patient Amnestic to Procedure: Yes Nausea / Vomiting: adequately controlled Pain: adequately controlled Airway Patency, RR, SpO2: stable & adequate BP & HR: stable & adequate Hydration State: stable & adequate Anesthetic Complications: no major complications apparent and Pt Satisfied with anesthetic care
[2025-06-26] MEDS: LACTATED RINGER'S 1,000 ML IV SCH ×2 (13:18→13:23)
[2025-06-26] MEDS: ADVANCED PROBIOTIC 625 MG CAPSULE PO SCH (14:27)
--- NOTE | 2025-06-26 16:16 | Hospitalist Progress Note ---
Date of Service June 26, 2025 Assessment & Plan (1) Confusion: Plan: 85-year-old female with past medical history significant for type 2 diabetes, CKD stage III, dyslipidemia, diabetic retinopathy, peripheral artery disease, nontoxic multinodular goiter, uncomplicated asthma, hypertension, persistent atrial fibrillation, pulmonary hypertension, osteoporosis, CAD status post CABG, status post pacemaker, osteomyelitis of left foot who lives at home with her and ambulates without support was brought in because of confusion. As per about 5 days ago patient was started IV daptomycin for osteomyelitis. Today she was sitting on the chair seemed confused. Not answering. When the decided to bring her to the hospital ,she woke up and resisted. Because of ongoing confusion was brought to the hospital. Currently patient is alert and awake and oriented to name and place. Could tell her age. Could not tell current dates. Patient denies any headache. Denies any chest pain. Denies shortness of breath. She says she always has cough. Denies nausea. Denies abdominal pain. States micturating okay. States moving her bowels okay. Per she also complained of left foot pain. thinks patient had fever. Hemodynamics are okay in the ER. Patient is following with wound care and podiatry for left foot diabetic ulcer. Left foot has osteomyelitis and it was thought that she was high risk for surgery and p laced on antibiotics as per the . She had a left lower extremity angiogram and revascularization done by Dr. Grey on 04/07/2025. Supposed to follow-up with [facility] in mid of July but seems patient was started on antibiotics daptomycin about 5 days back for six weeks. Confusion Seems improving Pneumonia on chest x-ray/ CT chest Has left foot osteomyelitis CT chest -Multiple bilateral nodules and patches of mixed ground glass and consolidative densities are seen scattered in both lungs, suggestive of an inf ective process (new). Mild right and minimal left pleural effusion (new). There are a few enlarged mediastinal lymph nodes, the largest is subcarinal, eaching 16mm in short axis, with interval size progression as compared to prior CT on 02/15/2022, features of a pathologically enlarged lymph node. PET-CT assessment is recommended if indicated clinically. CT left foot- 1. There is evidence of osteomyelitis involving the head/neck of the fifth metatarsal and the base of the fifth proximal phalanx with bony fragmentation/pathologic fracture.2. There is evidence of surrounding cellulitis, with a small abscess around the fifth metatarsophalangeal joint.3. No additional foci of osteomyelitis are clearly seen by CT.4. 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 At home, prior to admission was on IV daptomycin for left foot osteomyelitis as as per started about 5 days ago. As per to cover Corynebacterium Was changed to Zosyn and vancomycin in ED, doxycycline also added on admission IV fluids Will monitor 06/26 Mostly back to baseline mental status Continue Vanco, Zosyn, doxycycline Left foot osteomyelitis Antibiotics as above Podiatry and ID consult Per podiatry - pt declines surgery, cont. abx Per ID - recommend to obtain CT of left foot (see above), officially pt will be seen by ID today 06/26 Status post left fifth ray partial resection by Dr. Chamorro blood cultures: negative x 48 hours Left fifth toe intraoperative culture: Pending Diabetes Continue home long-acting insulin Hold p.o. medications Sliding scale Will monitor Sick sinus syndrome Status post pacemaker CAD Status post CABG On aspirin, statin, Imdur and metoprolol succinate Will monitor Hypertension Continue Imdur and metoprolol succinate Holding losartan and Lasix for now for ongoing infection Chronic diastolic CHF Holding Lasix Getting gentle fluids Monitor for volume overload A-fib Failed sotalol. Intolerant to amiodarone Currently on metoprolol succinate and Coumadin -- hold coumadin for now in light of foot surgery Hyperlipidemia On statin Peripheral artery disease Follows with vascular surgery On aspirin and statin History of asthma Continue home inhalers DVT prophylaxis On Coumadin- hold fo rnow Monitor INR Disposition Med/telemetry CODE STATUS DNR as per discussion of the admitting provider with the patient and confirms Admission and Anticipated Discharge Date Admission Date: June 24, 2025 Subjective seen resting in bed, comfortable on2 L NC at bedside visiting Reports patient is back to her usual mental status no Patient states she feels fine overall No shortness of breath, has intermittent dry cough No chest pain, palpitations, dizziness No foot pain No other new symptoms Review of Systems Review of Systems: all noted and negative except for above Physical Exam Physical Exam: General- oriented x 3, not in distress, speaks in sentences with no effort or accessory muscle use Eyes- anicteric Neck- no JVD Lungs- mild rales at the bases, no wheezing Heart- normal rate, regular rhythm; no murmurs Abdomen- normal bowel sounds, nondistended, soft, nontender Extremities- no pretibial edema, no calf tenderness Left foot heavy dressing in place: No bleeding or discharge Neuro- alert, oriented x 3; no gross focal neurologic deficits Skin- warm & dry Results & Data Results & Data Vital Signs (Past 12 Hours) Vital Signs Temp Pulse Pulse Resp BP Pulse Ox O2 Del Method 06/26/25 15:08 107 H 18 119/75 96 Nasal Cannula 06/26/25 14:20 36.6 C 117 H 18 147/86 H 96 Nasal Cannula 06/26/25 13:40 36.5 C 111 H 18 148/90 H 95 Nasal Cannula 06/26/25 13:11 36.6 C 106 H 18 146/71 H 95 Nasal Cannula 06/26/25 12:40 36.9 C 96 H 20 145/80 H 95 Nasal Cannula 06/26/25 12:30 97 H 20 124/79 93 Nasal Cannula 06/26/25 12:19 36 C L 98 H 14 128/97 95 Oxymask 06/26/25 11:06 36.7 C 93 H 20 165/77 H 94 Room Air 06/26/25 08:45 Nasal Cannula 06/26/25 07:56 36.7 C 99 H 18 144/72 H 92 Nasal Cannula O2 Flow Rate 06/26/25 15:08 2.0 06/26/25 14:20 2 06/26/25 13:40 2.0 06/26/25 13:11 2 06/26/25 12:40 2 06/26/25 12:30 2 06/26/25 12:19 6 06/26/25 11:06 2 06/26/25 08:45 2 06/26/25 07:56 2 all noted and reviewed including below
--- NOTE | 2025-06-27 05:51 | Communication Note ---
Date of Service: June 27, 2025 Patient bled through left foot wound dressing as per RN. Vital stable. 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 A.m. labs now Hold aspirin for now.
[2025-06-27 06:30] LABS: Hematocrit (blood only) 36.7 % (37.0-47.0); Hemoglobin 12.6 g/dl (12.0-16.0); Immature Granulocytes # (auto) 0.03 K/uL (0.01-0.20); Immature Granulocytes % (auto) 0.4 %; Mean Corpuscular Hemoglobin 30.2 pg (25.0-34.0); Mean Corpuscular Volume 88.0 fL (80.0-100.0); Platelet Count 254 K/uL (130-400); RDW Standard Deviation 45.0 fL (36.4-46.3); Red Blood Count 4.17 M/uL (4.20-5.40); White Blood Count 7.93 K/ul (4.8-10.8)
[2025-06-27 06:46] LABS: Anion Gap 9.0 (3-11); Blood Urea Nitrogen 29.0 mg/dl (6-23); Calcium 8.4 mg/dl (8.6-10.3); Carbon Dioxide 24.0 mmol/L (21-32); Chloride 102.0 mmol/L (98-107); Creatinine Clr Calc Pharmacy 40.3 ml/min; Glucose 194.0 mg/dl (70-99(Fasting)); Magnesium 1.9 mg/dl (1.7-2.4); Potassium 3.8 mmol/L (3.5-5.1); Sodium 135.0 mmol/L (136-145)
[2025-06-27 07:01] LABS: INR 2.0 (0.9-1.1); Prothrombin Time 20.4 Seconds (9.0-12.0)
--- NOTE | 2025-06-27 07:52 | Pharmacy Report ---
Pharmacy PK ABX Note - Date of Service June 27, 2025 - Assessment and Plan Assessment 06/27 * Random vancomycin level this AM was ~15 mcg/ml - current vancomycin dosing associated with goal AUC/KIRK therefore will continue current regimen. S/p surgery yesterday for toe resection, awaiting cultures. ID consulted 06/25 * Random vancomycin level this AM was ~17 mcg/ml - current vancomycin dosing associated with goal AUC/KIRK. Scr trending upward, will monitor. Awaiting ID recs. 06/24 * 85 year old F receiving vancomycin/Zosyn for treatment of confusion/left foot osteomyelitis/possible pneumonia. Pertinent microbiologic data includes: Negative MRSA Nasal Swab, blood cultures pending. Culture data from left foot 05/14/25 growing corynebacterium striatum. * Follows with podiatry, wound care and infectious disease outpatient. Started on daptomycin outpatient approximately 5 days ago for osteomyelitis. Switched to vancomycin for lung coverage and Zosyn added for unclear source of confusion with leukocytosis, elevated CRP/ESR, and reported outpatient fevers. ID and podiatry consulted for inpatient recommendations. * Day # 1 of vancomycin therapy. Plan Vancomycin * Continue current regimen Pharmacy will continue to follow and will adjust dose/frequency as necessary. Thank you. Pharmacy has transitioned to AUC monitoring for vancomycin. AUC/KIRK is the preferred PK/PD target and is associated with decreased risk of nephrotoxicity compared to traditional trough targets.
[2025-06-27 11:33] LABS: Hematocrit (blood only) 35.7 % (37.0-47.0); Hemoglobin 11.8 g/dl (12.0-16.0); Immature Granulocytes # (auto) 0.01 K/uL (0.01-0.20); Immature Granulocytes % (auto) 0.1 %; Mean Corpuscular Hemoglobin 29.5 pg (25.0-34.0); Mean Corpuscular Volume 89.3 fL (80.0-100.0); Platelet Count 255 K/uL (130-400); RDW Standard Deviation 45.1 fL (36.4-46.3); Red Blood Count 4.00 M/uL (4.20-5.40); White Blood Count 9.88 K/ul (4.8-10.8)
[2025-06-27] MEDS: PHYTONADIONE 5 MG TAB PO STA (12:18)
--- NOTE | 2025-06-27 15:23 | Hospitalist Progress Note ---
Date of Service June 27, 2025 Assessment & Plan (1) Confusion: Plan: 85-year-old female with past medical history significant for type 2 diabetes, CKD stage III, dyslipidemia, diabetic retinopathy, peripheral artery disease, nontoxic multinodular goiter, uncomplicated asthma, hypertension, persistent atrial fibrillation, pulmonary hypertension, osteoporosis, CAD status post CABG, status post pacemaker, osteomyelitis of left foot who lives at home with her and ambulates without support was brought in because of confusion. As per about 5 days ago patient was started IV daptomycin for osteomyelitis. Today she was sitting on the chair seemed confused. Not answering. When the decided to bring her to the hospital ,she woke up and resisted. Because of ongoing confusion was brought to the hospital. Currently patient is alert and awake and oriented to name and place. Could tell her age. Could not tell current dates. Patient denies any headache. Denies any chest pain. Denies shortness of breath. She says she always has cough. Denies nausea. Denies abdominal pain. States micturating okay. States moving her bowels okay. Per she also complained of left foot pain. thinks patient had fever. Hemodynamics are okay in the ER. Patient is following with wound care and podiatry for left foot diabetic ulcer. Left foot has osteomyelitis and it was thought that she was high risk for surgery and p laced on antibiotics as per the . She had a left lower extremity angiogram and revascularization done by Dr. Grey on 04/07/2025. Supposed to follow-up with [facility] in mid of July but seems patient was started on antibiotics daptomycin about 5 days back for six weeks. Confusion Seems improving Pneumonia on chest x-ray/ CT chest Has left foot osteomyelitis CT chest -Multiple bilateral nodules and patches of mixed ground glass and consolidative densities are seen scattered in both lungs, suggestive of an inf ective process (new). Mild right and minimal left pleural effusion (new). There are a few enlarged mediastinal lymph nodes, the largest is subcarinal, eaching 16mm in short axis, with interval size progression as compared to prior CT on 02/15/2022, features of a pathologically enlarged lymph node. PET-CT assessment is recommended if indicated clinically. CT left foot- 1. There is evidence of osteomyelitis involving the head/neck of the fifth metatarsal and the base of the fifth proximal phalanx with bony fragmentation/pathologic fracture.2. There is evidence of surrounding cellulitis, with a small abscess around the fifth metatarsophalangeal joint.3. No additional foci of osteomyelitis are clearly seen by CT.4. 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 At home, prior to admission was on IV daptomycin for left foot osteomyelitis as as per started about 5 days ago. As per to cover Corynebacterium Was changed to Zosyn and vancomycin in ED, doxycycline also added on admission IV fluids Will monitor 06/26 Mostly back to baseline mental status Continue Vanco, Zosyn, doxycycline 06/27 Mental status back to baseline Discussed with tool profiling machine set up operator Dr. Chamorro, good margins achieved during resection of metatarsal Messaged ID, awaiting final antibiotic recommendations Left foot osteomyelitis Antibiotics as above Podiatry and ID consult Per podiatry - pt declines surgery, cont. abx Per ID - recommend to obtain CT of left foot (see above), officially pt will be seen by ID today 06/26 Status post left fifth ray partial resection by Dr. Chamorro blood cultures: negative x 48 hours Left fifth toe intraoperative culture: Pending 06/27 Bleeding over surgical site noted since last evening INR 2.0, vitamin K given Hemoglobin mildly decreased at 11.[address] Huynh, evaluated by him today, wound seems to be healing well Continue to monitor closely Diabetes Continue home long-acting insulin Hold p.o. medications Sliding scale Will monitor Sick sinus syndrome Status post pacemaker CAD Status post CABG On aspirin, statin, Imdur and metoprolol succinate -- hold aspirin Hypertension Continue Imdur and metoprolol succinate Holding losartan and Lasix for now for ongoing infection Chronic diastolic CHF Holding Lasix Getting gentle fluids Monitor for volume overload A-fib Failed sotalol. Intolerant to amiodarone Currently on metoprolol succinate and Coumadin -- hold coumadin for now in light of foot surgery, bleeding at the surgical site Hyperlipidemia On statin Peripheral artery disease Follows with vascular surgery On aspirin and statin -- hold aspirin History of asthma Continue home inhalers DVT prophylaxis On Coumadin- hold fo rnow Monitor INR Disposition PCU CODE STATUS DNR as per discussion of the admitting provider with the patient and confirms plan of care discussed with patient and Don in detail and at length all questions answered they are understanding, agreeable, comfortable with the plan of care Admission and Anticipated Discharge Date Admission Date: June 24, 2025 Subjective seen sitting up in bed, awake and alert, answering all questions appropriately Off oxygen supplement States she feels fine overall today Has been having bleeding from the surgical site since last evening Denies cough, shortness of breath, chest pain No other new symptoms Review of Systems Review of Systems: all noted and negative except for above Physical Exam Physical Exam: General- oriented x 3, not in distress, speaks in sentences with no effort or accessory muscle use Eyes- anicteric Neck- no JVD Lungs- clear breath sounds bilaterally, no rales/wheezes Heart- normal rate, regular rhythm; no murmurs Abdomen- normal bowel sounds, nondistended, soft, nontender Extremities- no pretibial edema, no calf tenderness left foot: Heavy surgical dressing in place, with some bleeding noted Neuro- alert, oriented x 3; no gross focal neurologic deficits Skin- warm & dry Results & Data Results & Data Vital Signs (Past 12 Hours) Vital Signs Temp Pulse Resp BP Pulse Ox O2 Del Method 06/27/25 11:04 36.2 C L 79 18 119/72 92 Room Air 06/27/25 07:16 36.6 C 67 18 169/83 H 95 Room Air
--- NOTE | 2025-06-27 15:29 | Infectious Disease Progress Nt ---
Date of Service June 27, 2025 Telehealth Information Patient not seen. Subjective Patient now S/P resection 06/26/25. Cultures from OR NGTD, but prior cultures with C striatum. Tolerating vanco well since stopping daptomycin. Based on data today, my recommendations would be to: 1. D/C pip-tazo 2. Continue vancomycin with pharmacy dosing guidelines to extend x 4 weeks post- op (end date of 07/24/25) 3. While on vancomycin, please check weekly CBC, BMP, vanco trough, and CRP 4. Continue wound care and offloading per Podiatry 5. Follow-upo in ID clinic in 2-4 weeks Results & Data Vital Signs (Past 12 Hours) Vital Signs Temp Pulse Resp BP Pulse Ox O2 Del Method 06/27/25 11:04 36.2 C L 79 18 119/72 92 Room Air 06/27/25 07:16 36.6 C 67 18 169/83 H 95 Room Air
--- NOTE | 2025-06-27 16:29 | Podiatry Progress Note ---
Date of Service June 27, 2025 Assessment & Plan (1) Confusion: (2) Osteomyelitis of foot: (3) Diabetic foot ulcer with osteomyelitis: (4) PAD (peripheral artery disease): (5) Diabetic ulcer of left foot: Plan Patient examined and evaluated. - Foot was cleaned and redressed with absorptive dressing, including Xeroform gauze, 4 x 4 gauze, Kerlix, ABD, and foam adhesive dressing. - The proximal aspect of the surgical site was cauterized with silver nitrate at bedside. No further blood loss was appreciated after this application. - She still likely has some clotting to do, given the thinness of her blood overall. She would benefit from avoiding weightbearing for the next day or 2 to allow this to fully cease. - A compressive Josh bandage was applied to the lower extremity as well - Clinically clear margins were obtained, though definitive pathology results are still pending. - We will continue to follow, though will be able to be discharged home when she is stable medically. Admission and Anticipated Discharge Date Admission Date: June 24, 2025 Subjective Patient seen at bedside. She denies any new concerns. She has had bleeding into the dressing since surgery with a bandage change performed by nursing earlier today. She still has bleeding saturating the dressing at this point though denies any pain or systemic signs or symptoms of infection. She states she has remained nonweightbearing since surgery. Review of Systems Constitutional: + fever and + weakness; no chills and no fatigue Eyes: no problem reported Ear, Nose, Mouth, Throat: no problem reported Respiratory: + chest congestion; no problem reported Cardiovascular: + edema; no problem reported Gastrointestinal: no nausea, no vomiting and no problem reported Genitourinary: no problem reported Musculoskeletal: no problem reported Integumentary: + skin ulcer, + wounds and + erythema Neurologic: + loss of sensation, + numbness and + pa resthesia; no generalized weakness Psychiatric: no problem reported Physical Exam Physical Exam: Roughly 50 cc of blood loss noted to the dressing and the underlying opal on her bed. Upon removal of this dressing, no significant blood loss is appreciated with only light weeping bleeding noted to the proximal aspect of the incision. All sutures are intact with no active pulsatile bleeding noted. No new drainage noted. No ascending cellulitis or new onset of erythema appreciated. Constitutional: WD/WN, vitals as above + ill appearing and + obese; no acute distress Eyes: PERRL, conjunctivae normal, anicteric sclerae ENMT: external ear and nose normal, oropharynx normal Neck: trachea midline, no thyromegaly normal visual inspection Respiratory: + abnormal respiratory effort and no res piratory distress Cardiovascular: Rate/Rhythm: regular rate and regular rhythm Vessels: + posterior tibial pulses abnormal and + dorsalis pedis pulses abnormal Chest (Breasts): Chest: normal inspection of chest Gastrointestinal (Abdomen): Inspection/Auscultation: abdomen normal to inspection Percussion/Palpation: + abdomen tender and abdomen soft Musculoskeletal: no cyanosis or clubbing, extremities motor strength 5/5 Head/Neck/Chest: normocephalic and head atraumatic Extremities: extremities normal to inspection Neurologic: awake and + confused; + abnormal touch/pain/proprioception, + abnormal sensation to monofilament and no focal motor deficits Psychiatric: A+Ox3, euthymic affect Results & Data Results & Data Vital Signs (Past 12 Hours) Vital Signs Temp Pulse Resp BP Pulse Ox O2 Del Method 06/27/25 15:37 36.4 C L 75 18 119/71 95 Room Air 06/27/25 11:04 36.2 C L 79 18 119/72 92 Room Air 06/27/25 07:16 36.6 C 67 18 169/83 H 95 Room Air (2) Osteomyelitis of foot Laterality: left Osteomyelitis type: other acute Qualified Code(s): M86.172 - Other acute osteomyelitis, left ankle and foot (5) Diabetic ulcer of left foot Diabetic foot ulcer location: toe Diabetes mellitus type: type 2 Non- pressure ulcer stage: with fat layer exposed Qualified Code(s): E11.621 - Type 2 diabetes mellitus with foot ulcer; L97.522 - Non-pressure chronic ulcer of other part of left foot with fat layer exposed
[2025-06-28 06:27] LABS: Hematocrit (blood only) 33.6 % (37.0-47.0); Hemoglobin 11.9 g/dl (12.0-16.0); Immature Granulocytes # (auto) 0.04 K/uL (0.01-0.20); Immature Granulocytes % (auto) 0.4 %; Mean Corpuscular Hemoglobin 30.6 pg (25.0-34.0); Mean Corpuscular Volume 86.4 fL (80.0-100.0); Platelet Count 273 K/uL (130-400); RDW Standard Deviation 42.5 fL (36.4-46.3); Red Blood Count 3.89 M/uL (4.20-5.40); White Blood Count 11.31 K/ul (4.8-10.8)
[2025-06-28 08:01] LABS: Anion Gap 8.0 (3-11); Calcium 8.5 mg/dl (8.6-10.3); Carbon Dioxide 26.0 mmol/L (21-32); Chloride 103.0 mmol/L (98-107); Potassium 3.9 mmol/L (3.5-5.1); Sodium 137.0 mmol/L (136-145)
[2025-06-28 08:06] LABS: Blood Urea Nitrogen 36.0 mg/dl (6-23); Creatinine Clr Calc Pharmacy 30.9 ml/min; Glucose 132.0 mg/dl (70-99(Fasting))
--- NOTE | 2025-06-28 17:25 | Hospitalist Progress Note ---
Date of Service June 28, 2025 Assessment & Plan (1) Confusion: Plan: 85-year-old female with past medical history significant for type 2 diabetes, CKD stage III, dyslipidemia, diabetic retinopathy, peripheral artery disease, nontoxic multinodular goiter, uncomplicated asthma, hypertension, persistent atrial fibrillation, pulmonary hypertension, osteoporosis, CAD status post CABG, status post pacemaker, osteomyelitis of left foot who lives at home with her and ambulates without support was brought in because of confusion. As per about 5 days ago patient was started IV daptomycin for osteomyelitis. Today she was sitting on the chair seemed confused. Not answering. When the decided to bring her to the hospital ,she woke up and resisted. Because of ongoing confusion was brought to the hospital. Currently patient is alert and awake and oriented to name and place. Could tell her age. Could not tell current dates. Patient denies any headache. Denies any chest pain. Denies shortness of breath. She says she always has cough. Denies nausea. Denies abdominal pain. States micturating okay. States moving her bowels okay. Per she also complained of left foot pain. thinks patient had fever. Hemodynamics are okay in the ER. Patient is following with wound care and podiatry for left foot diabetic ulcer. Left foot has osteomyelitis and it was thought that she was high risk for surgery and p laced on antibiotics as per the . She had a left lower extremity angiogram and revascularization done by Dr. Grey on 04/07/2025. Supposed to follow-up with [facility] in mid of July but seems patient was started on antibiotics daptomycin about 5 days back for six weeks. Confusion Seems improving Pneumonia on chest x-ray/ CT chest Has left foot osteomyelitis CT chest -Multiple bilateral nodules and patches of mixed ground glass and consolidative densities are seen scattered in both lungs, suggestive of an inf ective process (new). Mild right and minimal left pleural effusion (new). There are a few enlarged mediastinal lymph nodes, the largest is subcarinal, eaching 16mm in short axis, with interval size progression as compared to prior CT on 02/15/2022, features of a pathologically enlarged lymph node. PET-CT assessment is recommended if indicated clinically. CT left foot- 1. There is evidence of osteomyelitis involving the head/neck of the fifth metatarsal and the base of the fifth proximal phalanx with bony fragmentation/pathologic fracture.2. There is evidence of surrounding cellulitis, with a small abscess around the fifth metatarsophalangeal joint.3. No additional foci of osteomyelitis are clearly seen by CT.4. 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 At home, prior to admission was on IV daptomycin for left foot osteomyelitis as as per started about 5 days ago. As per to cover Corynebacterium Was changed to Zosyn and vancomycin in ED, doxycycline also added on admission IV fluids Will monitor 06/26 Mostly back to baseline mental status Continue Vanco, Zosyn, doxycycline 06/27 Mental status back to baseline Discussed with telecommunications analyst Dr. Chamorro, good margins achieved during resection of metatarsal Messaged ID, awaiting final antibiotic recommendations 06/28 Stable overall post to surgery Continue IV antibiotics for now Left foot osteomyelitis Antibiotics as above Podiatry and ID consult Per podiatry - pt declines surgery, cont. abx Per ID - recommend to obtain CT of left foot (see above), officially pt will be seen by ID today 06/26 Status post left fifth ray partial resection by Dr. Chamorro blood cultures: negative x 48 hours Left fifth toe intraoperative culture: Pending 06/27 Bleeding over surgical site noted since last evening INR 2.0, vitamin K given Hemoglobin mildly decreased at 11.[address] Huynh, evaluated by him today, wound seems to be healing well Continue to monitor closely 06/28 Hemoglobin stable at 11.9 Coumadin on hold CBC and INR tomorrow Diabetes Continue home long-acting insulin Hold p.o. medications Sliding scale Will monitor Sick sinus syndrome Status post pacemaker CAD Status post CABG On aspirin, statin, Imdur and metoprolol succinate -- hold aspirin Hypertension Continue Imdur and metoprolol succinate Holding losartan and Lasix for now for ongoing infection Chronic diastolic CHF Holding Lasix Getting gentle fluids Monitor for volume overload A-fib Failed sotalol. Intolerant to amiodarone Currently on metoprolol succinate and Coumadin -- hold coumadin for now in light of foot surgery, bleeding at the surgical site Hyperlipidemia On statin Peripheral artery disease Follows with vascular surgery On aspirin and statin -- hold aspirin History of asthma Continue home inhalers DVT prophylaxis On Coumadin- hold for now Monitor INR Disposition PCU CODE STATUS DNR as per discussion of the admitting provider with the patient and confirms Admission and Anticipated Discharge Date Admission Date: June 24, 2025 Subjective seen resting in bed, comfortable, not in distress States she feels tired today, otherwise feels fine Denies pain over the surgical site No cough, shortness of breath No other new symptoms Review of Systems Review of Systems: all noted and negative except for above Physical Exam Physical Exam: General- oriented x 3, not in distress, speaks in sentences with no effort or accessory muscle use Eyes- anicteric Neck- no JVD Lungs- clear breath sounds bilaterally, no rales/wheezes Heart- normal rate, regular rhythm; no murmurs Abdomen- normal bowel sounds, nondistended, soft, nontender Extremities- no pretibial edema, no calf tenderness left foot heavy dressing in place Neuro- alert, oriented x 3; no gross focal neurologic deficits Skin- warm & dry Results & Data Results & Data Vital Signs (Past 12 Hours) Vital Signs Temp Pulse Pulse Resp BP Pulse Ox O2 Del Method 06/28/25 15:25 36.5 C 69 18 125/72 97 Room Air 06/28/25 13:50 75 06/28/25 12:16 71 06/28/25 11:19 36.3 C L 77 18 118/69 95 Room Air 06/28/25 11:18 Room Air 06/28/25 07:57 36.7 C 81 20 171/113 H 96 Room Air all noted and reviewed including below
[2025-06-29 06:17] LABS: Hematocrit (blood only) 33.9 % (37.0-47.0); Hemoglobin 11.6 g/dl (12.0-16.0); Immature Granulocytes # (auto) 0.04 K/uL (0.01-0.20); Immature Granulocytes % (auto) 0.4 %; Mean Corpuscular Hemoglobin 30.1 pg (25.0-34.0); Mean Corpuscular Volume 87.8 fL (80.0-100.0); Platelet Count 272 K/uL (130-400); RDW Standard Deviation 44.5 fL (36.4-46.3); Red Blood Count 3.86 M/uL (4.20-5.40); White Blood Count 11.00 K/ul (4.8-10.8)
[2025-06-29 06:44] LABS: Anion Gap 6.0 (3-11); Blood Urea Nitrogen 32.0 mg/dl (6-23); Calcium 8.4 mg/dl (8.6-10.3); Carbon Dioxide 30.0 mmol/L (21-32); Chloride 102.0 mmol/L (98-107); Creatinine Clr Calc Pharmacy 38.6 ml/min; Glucose 80.0 mg/dl (70-99(Fasting)); Potassium 3.8 mmol/L (3.5-5.1); Sodium 138.0 mmol/L (136-145)
[2025-06-29 06:46] LABS: INR 1.3 (0.9-1.1); Prothrombin Time 13.5 Seconds (9.0-12.0)
--- NOTE | 2025-06-29 14:45 | Hospitalist Progress Note ---
Date of Service June 29, 2025 Assessment & Plan (1) Confusion: Plan: 85-year-old female with past medical history significant for type 2 diabetes, CKD stage III, dyslipidemia, diabetic retinopathy, peripheral artery disease, nontoxic multinodular goiter, uncomplicated asthma, hypertension, persistent atrial fibrillation, pulmonary hypertension, osteoporosis, CAD status post CABG, status post pacemaker, osteomyelitis of left foot who lives at home with her and ambulates without support was brought in because of confusion. As per about 5 days ago patient was started IV daptomycin for osteomyelitis. Today she was sitting on the chair seemed confused. Not answering. When the decided to bring her to the hospital ,she woke up and resisted. Because of ongoing confusion was brought to the hospital. Currently patient is alert and awake and oriented to name and place. Could tell her age. Could not tell current dates. Patient denies any headache. Denies any chest pain. Denies shortness of breath. She says she always has cough. Denies nausea. Denies abdominal pain. States micturating okay. States moving her bowels okay. Per she also complained of left foot pain. thinks patient had fever. Hemodynamics are okay in the ER. Patient is following with wound care and podiatry for left foot diabetic ulcer. Left foot has osteomyelitis and it was thought that she was high risk for surgery and p laced on antibiotics as per the . She had a left lower extremity angiogram and revascularization done by Dr. Grey on 04/07/2025. Supposed to follow-up with [facility] in mid of July but seems patient was started on antibiotics daptomycin about 5 days back for six weeks. Confusion Seems improving Pneumonia on chest x-ray/ CT chest Has left foot osteomyelitis CT chest -Multiple bilateral nodules and patches of mixed ground glass and consolidative densities are seen scattered in both lungs, suggestive of an inf ective process (new). Mild right and minimal left pleural effusion (new). There are a few enlarged mediastinal lymph nodes, the largest is subcarinal, eaching 16mm in short axis, with interval size progression as compared to prior CT on 02/15/2022, features of a pathologically enlarged lymph node. PET-CT assessment is recommended if indicated clinically. CT left foot- 1. There is evidence of osteomyelitis involving the head/neck of the fifth metatarsal and the base of the fifth proximal phalanx with bony fragmentation/pathologic fracture.2. There is evidence of surrounding cellulitis, with a small abscess around the fifth metatarsophalangeal joint.3. No additional foci of osteomyelitis are clearly seen by CT.4. 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 At home, prior to admission was on IV daptomycin for left foot osteomyelitis as as per started about 5 days ago. As per to cover Corynebacterium Was changed to Zosyn and vancomycin in ED, doxycycline also added on admission IV fluids Will monitor 06/26 Mostly back to baseline mental status Continue Vanco, Zosyn, doxycycline 06/27 Mental status back to baseline Discussed with transitional living specialist Dr. Chamorro, good margins achieved during resection of metatarsal Messaged ID, awaiting final antibiotic recommendations 06/28 Stable overall post to surgery Continue IV antibiotics for now 06/29 ID recommendations: 1. D/C pip-tazo 2. Continue vancomycin with pharmacy dosing guidelines to extend x 4 weeks post- op (end date of 07/24/25) 3. While on vancomycin, please check weekly CBC, BMP, vanco trough, and CRP 4. Continue wound care and offloading per Podiatry 5. Follow-upo in ID clinic in 2-4 weeks Left foot osteomyelitis Antibiotics as above Podiatry and ID consult Per podiatry - pt declines surgery, cont. abx Per ID - recommend to obtain CT of left foot (see above), officially pt will be seen by ID today 06/26 Status post left fifth ray partial resection by Dr. Chamorro blood cultures: negative x 48 hours Left fifth toe intraoperative culture: Pending 06/27 Bleeding over surgical site noted since last evening INR 2.0, vitamin K given Hemoglobin mildly decreased at 11.[address] Huynh, evaluated by him today, wound seems to be healing well Continue to monitor closely 06/28 Hemoglobin stable at 11.9 Coumadin on hold CBC and INR tomorrow 06/29 Hemoglobin stable Possible resumption of Coumadin tomorrow Diabetes Continue home long-acting insulin Hold p.o. medications Sliding scale Will monitor Sick sinus syndrome Status post pacemaker CAD Status post CABG On aspirin, statin, Imdur and metoprolol succinate -- possibly resume ASA tomorrow Hypertension Continue Imdur and metoprolol succinate Holding losartan and Lasix for now for ongoing infection Chronic diastolic CHF Holding Lasix Getting gentle fluids Monitor for volume overload A-fib Failed sotalol. Intolerant to amiodarone Currently on metoprolol succinate and Coumadin -- Possibly resuming Coumadin tomorrow On statin Peripheral artery disease Follows with vascular surgery On aspirin and statin -- hold aspirin History of asthma Continue home inhalers DVT prophylaxis On Coumadin- hold for now Monitor INR Disposition PCU CODE STATUS DNR as per discussion of the admitting provider with the patient and confirms Admission and Anticipated Discharge Date Admission Date: June 24, 2025 Subjective sitting up in bed, comfortable, in good spirits Family at the bedside visiting States she feels okay overall today Mild pain over the left foot No shortness of breath cough No other symptoms Review of Systems Review of Systems: all noted and negative except for above Physical Exam Physical Exam: General- oriented x 3, not in distress, speaks in sentences with no effort or accessory muscle use Eyes- anicteric Neck- no JVD Lungs- clear breath sounds bilaterally, no rales/wheezes Heart- normal rate, regular rhythm; no murmurs Abdomen- normal bowel sounds, nondistended, soft, nontender Extremities- no pretibial edema, no calf tenderness left foot: Surgical incision-sutures in place, scant bleeding noted, mild edema around the incision, wound seems to be healing well overall Neuro- alert, oriented x 3; no gross focal neurologic deficits Skin- warm & dry Results & Data Results & Data Vital Signs (Past 12 Hours) Vital Signs Temp Pulse Pulse Resp BP Pulse Ox O2 Del Method 06/29/25 14:20 75 06/29/25 11:30 36.6 C 70 24 156/83 H Room Air 06/29/25 07:57 36.3 C L 71 24 186/90 H 92 Room Air 06/29/25 07:49 Room Air 06/29/25 06:51 71 06/29/25 03:18 36.7 C 67 14 159/85 H 94 Room Air all noted and reviewed including below
[2025-06-30 06:25] LABS: Hematocrit (blood only) 36.0 % (37.0-47.0); Hemoglobin 11.8 g/dl (12.0-16.0); Immature Granulocytes # (auto) 0.06 K/uL (0.01-0.20); Immature Granulocytes % (auto) 0.5 %; Mean Corpuscular Hemoglobin 28.9 pg (25.0-34.0); Mean Corpuscular Volume 88.2 fL (80.0-100.0); Platelet Count 308 K/uL (130-400); RDW Standard Deviation 44.8 fL (36.4-46.3); Red Blood Count 4.08 M/uL (4.20-5.40); White Blood Count 11.70 K/ul (4.8-10.8)
[2025-06-30 06:50] LABS: Anion Gap 6.0 (3-11); Blood Urea Nitrogen 25.0 mg/dl (6-23); Calcium 8.5 mg/dl (8.6-10.3); Carbon Dioxide 28.0 mmol/L (21-32); Chloride 101.0 mmol/L (98-107); Creatinine Clr Calc Pharmacy 49.1 ml/min; Glucose 90.0 mg/dl (70-99(Fasting)); Potassium 3.8 mmol/L (3.5-5.1); Sodium 135.0 mmol/L (136-145)
[2025-06-30 06:56] LABS: INR 1.2 (0.9-1.1); Prothrombin Time 12.9 Seconds (9.0-12.0)
[2025-06-30] MEDS: LOSARTAN POTASSIUM 50 MG TAB PO SCH (08:50)
--- NOTE | 2025-06-30 10:46 | Hospitalist Progress Note ---
Date of Service June 30, 2025 Assessment & Plan (1) Confusion: Plan: 85-year-old female with past medical history significant for type 2 diabetes, CKD stage III, dyslipidemia, diabetic retinopathy, peripheral artery disease, nontoxic multinodular goiter, uncomplicated asthma, hypertension, persistent atrial fibrillation, pulmonary hypertension, osteoporosis, CAD status post CABG, status post pacemaker, osteomyelitis of left foot who lives at home with her and ambulates without support was brought in because of confusion. As per about 5 days ago patient was started IV daptomycin for osteomyelitis. Today she was sitting on the chair seemed confused. Not answering. When the decided to bring her to the hospital ,she woke up and resisted. Because of ongoing confusion was brought to the hospital. Currently patient is alert and awake and oriented to name and place. Could tell her age. Could not tell current dates. Patient denies any headache. Denies any chest pain. Denies shortness of breath. She says she always has cough. Denies nausea. Denies abdominal pain. States micturating okay. States moving her bowels okay. Per she also complained of left foot pain. thinks patient had fever. Hemodynamics are okay in the ER. Patient is following with wound care and podiatry for left foot diabetic ulcer. Left foot has osteomyelitis and it was thought that she was high risk for surgery and p laced on antibiotics as per the . She had a left lower extremity angiogram and revascularization done by Dr. Grey on 04/07/2025. Supposed to follow-up with [facility] in mid of July but seems patient was started on antibiotics daptomycin about 5 days back for six weeks. Confusion Seems improving Pneumonia on chest x-ray/ CT chest Has left foot osteomyelitis CT chest -Multiple bilateral nodules and patches of mixed ground glass and consolidative densities are seen scattered in both lungs, suggestive of an inf ective process (new). Mild right and minimal left pleural effusion (new). There are a few enlarged mediastinal lymph nodes, the largest is subcarinal, eaching 16mm in short axis, with interval size progression as compared to prior CT on 02/15/2022, features of a pathologically enlarged lymph node. PET-CT assessment is recommended if indicated clinically. CT left foot- 1. There is evidence of osteomyelitis involving the head/neck of the fifth metatarsal and the base of the fifth proximal phalanx with bony fragmentation/pathologic fracture.2. There is evidence of surrounding cellulitis, with a small abscess around the fifth metatarsophalangeal joint.3. No additional foci of osteomyelitis are clearly seen by CT.4. 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 At home, prior to admission was on IV daptomycin for left foot osteomyelitis as as per started about 5 days ago. As per to cover Corynebacterium Was changed to Zosyn and vancomycin in ED, doxycycline also added on admission IV fluids Will monitor 06/26 Mostly back to baseline mental status Continue Vanco, Zosyn, doxycycline 06/27 Mental status back to baseline Discussed with second worker Dr. Chamorro, good margins achieved during resection of metatarsal Messaged ID, awaiting final antibiotic recommendations 06/28 Stable overall post to surgery Continue IV antibiotics for now 06/29 ID recommendations: 1. D/C pip-tazo 2. Continue vancomycin with pharmacy dosing guidelines to extend x 4 weeks post- op (end date of 07/24/25) 3. While on vancomycin, please check weekly CBC, BMP, vanco trough, and CRP 4. Continue wound care and offloading per Podiatry 5. Follow-upo in ID clinic in 2-4 weeks 06/30 Surgical wound healing well Will need vancomycin x 4 weeks postop, end date July 24, 2025 Will order PICC line today CBC, BMP, Vanco trough, CRP weekly while on vancomycin Continue daily wound care Follow-up in ID clinic in 2 to 4 weeks Resume aspirin today, as well as Coumadin Left foot osteomyelitis Antibiotics as above Podiatry and ID consult Per podiatry - pt declines surgery, cont. abx Per ID - recommend to obtain CT of left foot (see above), officially pt will be seen by ID today 06/26 Status post left fifth ray partial resection by Dr. Chaomrro blood cultures: negative x 48 hours Left fifth toe intraoperative culture: Pending 06/27 Bleeding over surgical site noted since last evening INR 2.0, vitamin K given Hemoglobin mildly decreased at 11.[address] Huynh, evaluated by him today, wound seems to be healing well Continue to monitor closely 06/28 Hemoglobin stable at 11.9 Coumadin on hold CBC and INR tomorrow 06/29 Hemoglobin stable Possible resumption of Coumadin tomorrow 06/30 Hemoglobin stable Continue aspirin Today If remains stable, resume Coumadin tomorrow Diabetes Continue home long-acting insulin Hold p.o. medications Sliding scale Will monitor Sick sinus syndrome Status post pacemaker CAD Status post CABG On aspirin, statin, Imdur and metoprolol succinate -- resume aspirin today Hypertension Continue Imdur and metoprolol succinate - resume losartan but decrease dose to 50 mg daily and monitor blood pressure Continue to hold Lasix Chronic diastolic CHF Holding Lasix Getting gentle fluids Monitor for volume overload A-fib Failed sotalol. Intolerant to amiodarone Currently on metoprolol succinate and Coumadin -- Resume Coumadin On statin Peripheral artery disease Follows with vascular surgery On aspirin and statin -- resume aspirin History of asthma Continue home inhalers DVT prophylaxis coumadin Monitor INR Disposition PCU CODE STATUS DNR as per discussion of the admitting provider with the patient and confirms Admission and Anticipated Discharge Date Admission Date: June 24, 2025 Subjective Seen resting in bed, comfortable, not in distress In good spirits States that she continues to feel improved overall Mild pain over the left foot surgical site No shortness of breath, cough, chest pain No dizziness No other new symptoms Review of Systems Review of Systems: all noted and negative except for above Physical Exam Physical Exam: General- oriented x 3, not in distress, speaks in sentences with no effort or accessory muscle use Eyes- anicteric Neck- no JVD Lungs- clear breath sounds bilaterally, no rales/wheezes Heart- normal rate, regular rhythm; no murmurs Abdomen- normal bowel sounds, nondistended, soft, nontender Extremities- no pretibial edema, no calf tenderness left foot-heavy dressing in place, no bleeding or discharge Neuro- alert, oriented x 3; no gross focal neurologic deficits Skin- warm & dry Results & Data Results & Data Vital Signs (Past 12 Hours) Vital Signs Temp Pulse Resp BP Pulse Ox O2 Del Method 06/30/25 07:12 36.6 C 70 18 177/97 H 94 Room Air 06/30/25 03:59 36.3 C L 55 L 18 181/82 H 95 Room Air 06/30/25 00:54 36.4 C L 68 18 179/92 H 96 Room Air all noted and reviewed including below
--- NOTE | 2025-06-30 12:33 | Podiatry Progress Note ---
Date of Service June 30, 2025 Assessment & Plan (1) Confusion: (2) Osteomyelitis of foot: (3) Diabetic foot ulcer with osteomyelitis: (4) PAD (peripheral artery disease): (5) Diabetic ulcer of left foot: Plan Patient examined and evaluated. - Foot was cleaned and redressed with absorptive dressing, including Xeroform gauze, 4 x 4 gauze, Kerlix, ABD, and foam adhesive dressing. - No further blood loss noted after initial dressing change. - With the decreased bleeding, she can begin to weightbear in her surgical shoes. - Consider PT/OT for weightbearing and balance initially, but should be able to get back to her baseline activity, in surgical shoes, at this point. - Clinically clear margins were obtained, though definitive pathology results are still pending. - We will continue to follow, though will be able to be discharged home when she is stable medically. Admission and Anticipated Discharge Date Admission Date: June 24, 2025 Subjective Patient seen at bedside at lunchtime. Denies new concerns. Has not had bleeding to dressing since immediate postop. Has remained non weightbearing, but is eager to if possible. Denies any pain or complications. Feeling better. believes she is back to baseline. Review of Systems Constitutional: + fever and + weakness; no chills and no fatigue Eyes: no problem reported Ear, Nose, Mouth, Throat: no problem reported Respiratory: + chest congestion; no problem reported Cardiovascular: + edema; no problem reported Gastrointestinal: no nausea, no vomiting and no problem reported Genitourinary: no problem reported Musculoskeletal: no problem reported Integumentary: + skin ulcer, + wounds and + erythema Neurologic: + loss of sensation, + numbness and + pa resthesia; no generalized weakness Psychiatric: no problem reported Physical Exam Physical Exam: Dressing clean, dry, intact. All sutures are intact with no active pulsatile bleeding noted. No new drainage/bleeding noted. No ascending cellulitis or new onset of erythema appreciated. Constitutional: WD/WN, vitals as above + ill appearing and + obese; no acute distress Eyes: PERRL, conjunctivae normal, anicteric sclerae ENMT: external ear and nose normal, oropharynx normal Neck: trachea midline, no thyromegaly normal visual inspection Respiratory: + abnormal respiratory effort and no res piratory distress Cardiovascular: Rate/Rhythm: regular rate and regular rhythm Vessels: + posterior tibial pulses abnormal and + dorsalis pedis pulses abnormal Chest (Breasts): Chest: normal inspection of chest Gastrointestinal (Abdomen): Inspection/Auscultation: abdomen normal to inspection Percussion/Palpation: + abdomen tender and abdomen soft Musculoskeletal: no cyanosis or clubbing, extremities motor strength 5/5 Head/Neck/Chest: normocephalic and head atraumatic Extremities: extremities normal to inspection Neurologic: awake and + confused; + abnormal touch/pain/proprioception, + abnormal sensation to monofilament and no focal motor deficits Psychiatric: A+Ox3, euthymic affect Results & Data Results & Data Vital Signs (Past 12 Hours) Vital Signs Temp Pulse Resp BP Pulse Ox O2 Del Method 06/30/25 11:30 36.5 C 80 16 156/71 H 95 Room Air 06/30/25 07:12 36.6 C 70 18 177/97 H 94 Room Air 06/30/25 03:59 36.3 C L 55 L 18 181/82 H 95 Room Air 06/30/25 00:54 36.4 C L 68 18 179/92 H 96 Room Air (2) Osteomyelitis of foot Laterality: left Osteomyelitis type: other acute Qualified Code(s): M86.172 - Other acute osteomyelitis, left ankle and foot (5) Diabetic ulcer of left foot Diabetes mellitus type: type 2 Diabetic foot ulcer location: toe Non- pressure ulcer stage: with fat layer exposed Qualified Code(s): E11.621 - Type 2 diabetes mellitus with foot ulcer; L97.522 - Non-pressure chronic ulcer of other part of left foot with fat layer exposed
--- NOTE | 2025-06-30 15:50 | CT Scan Report ---
CT SCAN OF THE BRAIN WITHOUT IV CONTRAST CLINICAL HISTORY: Confusion. Evaluate for cerebrovascular accident. COMPARISON STUDY: Head CT October 24, 2024. TECHNIQUE: Unenhanced axial CT scan of the brain was performed from the vertex to the skull base. A dose lowering technique was utilized adhering to the principles of ALARA. CT DOSE: 625.8 mGy.cm FINDINGS: Brain parenchyma: This exam is mildly compromised by motion artifact. No acute intracranial hemorrhag e, midline shift or mass effect is present. Webber-white matter differentiation is preserved. There are no extra-axial fluid collections. There are no findings to suggest acute dural sinus thrombosis or a cute territorial infarct. Ventricles, sulci, cisterns: The ventricular system is stable. Mild dilatation of the lateral ventric les is likely related to central atrophy. The basal cisterns are patent. Calvarium: Unremarkable. Sinuses and mastoids: The visualized paranasal sinuses are clear. The mastoid air cells are well pneu matized. Orbits: The bony orbits are grossly intact. IMPRESSION: No acute intracranial findings. No change in appearance of the brain. ACT 112: Negative or not required by law. Electronically signed by: lSava Barnett M.D. 06/30/2025 3:49 PM
[2025-06-30] MEDS: AMOXICILLIN/CLAVULANATE 875 MG TAB PO SCH (17:09)
[2025-07-01 07:12] LABS: Anion Gap 7.0 (3-11); Blood Urea Nitrogen 25.0 mg/dl (6-23); Calcium 8.9 mg/dl (8.6-10.3); Carbon Dioxide 28.0 mmol/L (21-32); Chloride 101.0 mmol/L (98-107); Creatinine Clr Calc Pharmacy 44.2 ml/min; Glucose 110.0 mg/dl (70-99(Fasting)); Potassium 4.1 mmol/L (3.5-5.1); Sodium 136.0 mmol/L (136-145)
[2025-07-01 07:25] LABS: INR 1.2 (0.9-1.1); Prothrombin Time 12.4 Seconds (9.0-12.0)
--- NOTE | 2025-07-01 10:02 | Pharmacy Report ---
Pharmacy PK ABX Note - Date of Service July 01, 2025 - Assessment and Plan Assessment 07/01 Day #9 vancomycin * Random vancomycin level this morning was 17.5mcg/mL. This extrapolates to an AUC in the target range so will continue the current maintenance dose of vancomycin * s/p resection 06/26/25. Cultures from OR are no growth to date, but prior cultures with C. striatum. ID consulted and recommends continuing vancomycin alone x 4 weeks postop (stop date of 07/24/25). * She has had fairy stable renal function, has been afebrile, and mild leukocytosis continues 06/27 * Random vancomycin level this AM was ~15 mcg/ml - current vancomycin dosing associated with goal AUC/KIRK therefore will continue current regimen. S/p surgery yesterday for toe resection, awaiting cultures. ID consulted 06/25 * Random vancomycin level this AM was ~17 mcg/ml - current vancomycin dosing associated with goal AUC/KIRK. Scr trending upward, will monitor. Awaiting ID recs. 06/24 * 85 year old F receiving vancomycin/Zosyn for treatment of confusion/left foot osteomyelitis/possible pneumonia. Pertinent microbiologic data includes: Negative MRSA Nasal Swab, blood cultures pending. Culture data from left foot 05/14/25 growing corynebacterium striatum. * Follows with podiatry, wound care and infectious disease outpatient. Started on daptomycin outpatient approximately 5 days ago for osteomyelitis. Switched to vancomycin for lung coverage and Zosyn added for unclear source of confusion with leukocytosis, elevated CRP/ESR, and reported outpatient fevers. ID and podiatry consulted for inpatient recommendations. * Day # 1 of vancomycin therapy. Plan Vancomycin * Continue current regimen of 1250mg iv q 24 hours * Will obtain another vancomycin level in the next week or as clinically necessary. Pharmacy will continue to follow and will adjust dose/frequency as necessary. Thank you. Pharmacy has transitioned to AUC monitoring for vancomycin. AUC/KIRK is the preferred PK/PD target and is associated with decreased risk of nephrotoxicity compared to traditional trough targets.
--- NOTE | 2025-07-01 15:24 | Hospitalist Progress Note ---
Date of Service July 01, 2025 Assessment & Plan (1) Confusion: Plan: 85-year-old female with past medical history significant for type 2 diabetes, CKD stage III, dyslipidemia, diabetic retinopathy, peripheral artery disease, nontoxic multinodular goiter, uncomplicated asthma, hypertension, persistent atrial fibrillation, pulmonary hypertension, osteoporosis, CAD status post CABG, status post pacemaker, osteomyelitis of left foot who lives at home with her and ambulates without support was brought in because of confusion. As per about 5 days ago patient was started IV daptomycin for osteomyelitis. Today she was sitting on the chair seemed confused. Not answering. When the decided to bring her to the hospital ,she woke up and resisted. Because of ongoing confusion was brought to the hospital. Currently patient is alert and awake and oriented to name and place. Could tell her age. Could not tell current dates. Patient denies any headache. Denies any chest pain. Denies shortness of breath. She says she always has cough. Denies nausea. Denies abdominal pain. States micturating okay. States moving her bowels okay. Per she also complained of left foot pain. thinks patient had fever. Hemodynamics are okay in the ER. Patient is following with wound care and podiatry for left foot diabetic ulcer. Left foot has osteomyelitis and it was thought that she was high risk for surgery and p laced on antibiotics as per the . She had a left lower extremity angiogram and revascularization done by Dr. Grey on 04/07/2025. Supposed to follow-up with [facility] in mid of July but seems patient was started on antibiotics daptomycin about 5 days back for six weeks. Confusion Seems improving Pneumonia on chest x-ray/ CT chest Has left foot osteomyelitis CT chest -Multiple bilateral nodules and patches of mixed ground glass and consolidative densities are seen scattered in both lungs, suggestive of an inf ective process (new). Mild right and minimal left pleural effusion (new). There are a few enlarged mediastinal lymph nodes, the largest is subcarinal, eaching 16mm in short axis, with interval size progression as compared to prior CT on 02/15/2022, features of a pathologically enlarged lymph node. PET-CT assessment is recommended if indicated clinically. CT left foot- 1. There is evidence of osteomyelitis involving the head/neck of the fifth metatarsal and the base of the fifth proximal phalanx with bony fragmentation/pathologic fracture.2. There is evidence of surrounding cellulitis, with a small abscess around the fifth metatarsophalangeal joint.3. No additional foci of osteomyelitis are clearly seen by CT.4. 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 At home, prior to admission was on IV daptomycin for left foot osteomyelitis as as per started about 5 days ago. As per to cover Corynebacterium Was changed to Zosyn and vancomycin in ED, doxycycline also added on admission IV fluids Will monitor 06/26 Mostly back to baseline mental status Continue Vanco, Zosyn, doxycycline 06/27 Mental status back to baseline Discussed with peach grower Dr. Chamorro, good margins achieved during resection of metatarsal Messaged ID, awaiting final antibiotic recommendations 06/28 Stable overall post to surgery Continue IV antibiotics for now 06/29 ID recommendations: 1. D/C pip-tazo 2. Continue vancomycin with pharmacy dosing guidelines to extend x 4 weeks post- op (end date of 07/24/25) 3. While on vancomycin, please check weekly CBC, BMP, vanco trough, and CRP 4. Continue wound care and offloading per Podiatry 5. Follow-upo in ID clinic in 2-4 weeks 06/30 Surgical wound healing well Will need vancomycin x 4 weeks postop, end date July 24, 2025 Will order PICC line today CBC, BMP, Vanco trough, CRP weekly while on vancomycin Continue daily wound care Follow-up in ID clinic in 2 to 4 weeks Resume aspirin today, as well as Coumadin 07/[address] head no acute process More oriented and conversant today Already has a PICC line Continue IV vancomycin Continue PT OT Left foot osteomyelitis Antibiotics as above Podiatry and ID consult Per podiatry - pt declines surgery, cont. abx Per ID - recommend to obtain CT of left foot (see above), officially pt will be seen by ID today 06/26 Status post left fifth ray partial resection by Dr. Chamorro blood cultures: negative x 48 hours Left fifth toe intraoperative culture: Pending 06/27 Bleeding over surgical site noted since last evening INR 2.0, vitamin K given Hemoglobin mildly decreased at 11.[address] Huynh, evaluated by him today, wound seems to be healing well Continue to monitor closely 06/28 Hemoglobin stable at 11.9 Coumadin on hold CBC and INR tomorrow 06/29 Hemoglobin stable Possible resumption of Coumadin tomorrow 06/30 Hemoglobin stable Continue aspirin Today If remains stable, resume Coumadin tomorrow 07/01 Continue IV vancomycin Diabetes Continue home long-acting insulin Hold p.o. medications Sliding scale Will monitor Sick sinus syndrome Status post pacemaker CAD Status post CABG On aspirin, statin, Imdur and metoprolol succinate -- resume aspirin today Hypertension Continue Imdur and metoprolol succinate - resume losartan but decrease dose to 50 mg daily and monitor blood pressure Continue to hold Lasix Chronic diastolic CHF Holding Lasix Getting gentle fluids Monitor for volume overload A-fib Failed sotalol. Intolerant to amiodarone Currently on metoprolol succinate and Coumadin -- Resumed Coumadin INR 1.2 On statin Peripheral artery disease Follows with vascular surgery On aspirin and statin -- resumed aspirin History of asthma Continue home inhalers DVT prophylaxis coumadin Monitor INR Disposition PCU CODE STATUS DNR as per discussion of the admitting provider with the patient and confirms Admission and Anticipated Discharge Date Admission Date: June 24, 2025 Subjective seen resting in bed, comfortable, sitting Awake and alert, oriented timesx 2, answering most questions appropriately In good spirits States she feels fine overall No shortness of breath, cough, dizziness, nausea Not much pain on the left foot No other new symptoms Review of Systems Review of Systems: all noted and negative except for above Physical Exam Physical Exam: General- oriented x 2-3, not in distress, speaks in sentences with no effort or accessory muscle use Eyes- anicteric Neck- no JVD Lungs- clear breath sounds bilaterally, no rales/wheezes Heart- normal rate, regular rhythm; no murmurs Abdomen- normal bowel sounds, nondistended, soft, nontender Extremities- no pretibial edema, no calf tenderness left foot: Heavy dressing in place, no bleeding or discharge Neuro- alert, oriented x 3; no gross focal neurologic deficits Skin- warm & dry Results & Data Results & Data Vital Signs (Past 12 Hours) Vital Signs Temp Pulse Pulse Resp BP Pulse Ox O2 Del Method 07/01/25 10:57 36.7 C 63 17 111/71 96 Room Air 07/01/25 08:18 36.3 C L 74 17 138/82 95 Room Air 07/01/25 08:00 Room Air 07/01/25 07:27 70
[2025-07-01] MEDS: WARFARIN SOD 2 MG TAB PO SCH (16:59)
[2025-07-01] MEDS: ENOXAPARIN INJ 40 MG/0.4 ML SYR SQ SCH (16:59)
[2025-07-02 07:02] LABS: Anion Gap 5.0 (3-11); Blood Urea Nitrogen 26.0 mg/dl (6-23); Calcium 8.7 mg/dl (8.6-10.3); Carbon Dioxide 29.0 mmol/L (21-32); Chloride 102.0 mmol/L (98-107); Creatinine Clr Calc Pharmacy 45.2 ml/min; Glucose 96.0 mg/dl (70-99(Fasting)); Potassium 4.1 mmol/L (3.5-5.1); Sodium 136.0 mmol/L (136-145)
[2025-07-02 07:10] LABS: INR 1.4 (0.9-1.1); Prothrombin Time 14.5 Seconds (9.0-12.0)
[2025-07-02] MEDS: POLYETHYLENE (MIRALAX) 17 GM PACK PO PRN (07:30)
--- NOTE | 2025-07-02 14:15 | Hospitalist Progress Note ---
Date of Service July 02, 2025 Assessment & Plan (1) Confusion: Plan: 85-year-old female with past medical history significant for type 2 diabetes, CKD stage III, dyslipidemia, diabetic retinopathy, peripheral artery disease, nontoxic multinodular goiter, uncomplicated asthma, hypertension, persistent atrial fibrillation, pulmonary hypertension, osteoporosis, CAD status post CABG, status post pacemaker, osteomyelitis of left foot who lives at home with her and ambulates without support was brought in because of confusion. As per about 5 days ago patient was started IV daptomycin for osteomyelitis. Today she was sitting on the chair seemed confused. Not answering. When the decided to bring her to the hospital ,she woke up and resisted. Because of ongoing confusion was brought to the hospital. Currently patient is alert and awake and oriented to name and place. Could tell her age. Could not tell current dates. Patient denies any headache. Denies any chest pain. Denies shortness of breath. She says she always has cough. Denies nausea. Denies abdominal pain. States micturating okay. States moving her bowels okay. Per she also complained of left foot pain. thinks patient had fever. Hemodynamics are okay in the ER. Patient is following with wound care and podiatry for left foot diabetic ulcer. Left foot has osteomyelitis and it was thought that she was high risk for surgery and placed on antibiotics as per the . She had a left lower extremity angiogram and revascularization done by Dr. Grey on 04/07/2025. Supposed to follow-up with [facility] in mid of July but seems patient was started on antibiotics daptomycin about 5 days back for six weeks. Confusion Seems improving Pneumonia on chest x-ray/ CT chest Has left foot osteomyelitis CT chest -Multiple bilateral nodules and patches of mixed ground glass and consolidative densities are seen scattered in both lungs, suggestive of an in fective process (new). Mild right and minimal left pleural effusion (new). There are a few enlarged mediastinal lymph nodes, the largest is subcarinal, eaching 16mm in short axis, with interval size progression as compared to prior CT on 02/15/2022, features of a pathologically enlarged lymph node. PET-CT assessment is recommended if indicated clinically. CT left foot- 1. There is evidence of osteomyelitis involving the head/neck of the fifth metatarsal and the base of the fifth proximal phalanx with bony fragmentation/pathologic fracture.2. There is evidence of surrounding cellulitis, with a small abscess around the fifth metatarsophalangeal joint.3. No additional foci of osteomyelitis are clearly seen by CT.4. 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 At home, prior to admission was on IV daptomycin for left foot osteomyelitis as as per started about 5 days ago. As per to cover Corynebacterium Was changed to Zosyn and vancomycin in ED, doxycycline also added on admission IV fluids Will monitor 07/02 Evaluated by podiatry service, Dr. Js Chamorro 06/26 Left Fifth Ray Partial Resection(Left) - Js Chamorro, DPM Discussed with compounder Dr. Chamorro, good margins achieved during resection of metatarsal ID recommendations: 1. D/C pip-tazo 2. Continue vancomycin with pharmacy dosing guidelines to extend x 4 weeks post- op (end date of 07/24/25)- already has a PICC line 3. While on vancomycin, please check weekly CBC, BMP, vanco trough, and CRP 4. Continue wound care and offloading per Podiatry 5. Follow-upo in ID clinic in 2-4 weeks Surgical wound healing well mental status improving Had some confusion again since Monday ASA, Coumadin held prior to surgery- CT head no acute process check UA possible hospital delirium Continue to monitor closely Possible discharge tomorrow if mental status continues to improve Left foot osteomyelitis Antibiotics as above Podiatry and ID consult Per podiatry - pt declines surgery, cont. abx Per ID - recommend to obtain CT of left foot (see above), officially pt will be seen by ID today 06/26 Status post left fifth ray partial resection by Dr. Chamorro blood cultures: negative x 48 hours Left fifth toe intraoperative culture: negative postop course complicated by bleeding over surgical site Vitamin K given Aspirin and Coumadin held Bleeding resolved Hemoglobin stable Aspirin and Coumadin resumed 2 days ago, no bleeding issues Diabetes Continue home long-acting insulin Hold p.o. medications Sliding scale Will monitor Sick sinus syndrome Status post pacemaker CAD Status post CABG On aspirin, statin, Imdur and metoprolol succinate Hypertension Continue Imdur and metoprolol succinate - resume losartan but decrease dose to 50 mg daily and monitor blood pressure Continue to hold Lasix As patient appears to be on the dry side Chronic diastolic CHF Holding Lasix A-fib Failed sotalol. Intolerant to amiodarone Currently on metoprolol succinate and Coumadin -- Resumed Coumadin INR 1.4 -- Coumadin 4 mg today Peripheral artery disease Follows with vascular surgery On aspirin and statin History of asthma Continue home inhalers DVT prophylaxis coumadin with Lovenox subcu until INR is therapeutic Monitor INR Disposition anticipate discharge to acute rehab/SNF once mental status further improves CODE STATUS DNR as per discussion of the admitting provider with the patient and confirms Admission and Anticipated Discharge Date Admission Date: June 24, 2025 Subjective seen sitting up in bedside chair, comfortable, not in distress Awake and alert, answering most questions appropriately but sometimes forgetful States she feels fine overall, left foot surgical site pain is well-controlled Denies cough, shortness of breath, chest pain No other new symptoms Patient's Don at the bedside visiting Review of Systems Review of Systems: all noted and negative except for above Physical Exam Physical Exam: General- oriented x 2, not in distress, speaks in sentences with no effort or accessory muscle use Eyes- anicteric Neck- no JVD Lungs- clear breath sounds bilaterally, no crackles Heart- normal rate, regular rhythm; no murmurs Abdomen- normal bowel sounds, nondistended, soft, no tenderness Extremities- no pretibial edema, no calf tenderness Neuro- alert, oriented x 2; no gross focal neurologic deficits Skin- warm & dry Results & Data Results & Data Vital Signs (Past 12 Hours) Vital Signs Temp Pulse Pulse Resp BP Pulse Ox O2 Del Method 07/02/25 13:35 71 07/02/25 11:02 36.3 C L 65 18 103/65 96 Room Air 07/02/25 07:37 Room Air 07/02/25 07:19 36.4 C L 60 18 139/81 97 Room Air 07/02/25 07:13 64 07/02/25 02:43 36.6 C 69 16 139/84 96 Room Air all noted and reviewed including below
--- NOTE | 2025-07-02 14:20 | XRay Report ---
XR chest 1V portable CLINICAL HISTORY: ff up pneumonia COMPARISON STUDY: 06/24/2025 FINDINGS: Stable CABG and pacemaker. Stable cardiomegaly with mild pulmonary vascular congestion. Sta ble right PICC. There is patchy opacity in the lung bases which has improved. No gross pleural effusi on seen. No pneumothorax seen. IMPRESSION: Persistent pneumonia in the lung bases, improved. ACT 112: Negative or not required by law. Electronically signed by: Julian Carlos M.D. 07/02/2025 2:19 PM
[2025-07-02] MEDS: WARFARIN SOD 4 MG TAB PO ONE (15:08)
[2025-07-02 22:40] LABS: Appearance Urine Clear (Clear); Glucose Urine UA Trace (Negative)
[2025-07-03 06:31] LABS: Anion Gap 5.0 (3-11); Calcium 8.9 mg/dl (8.6-10.3); Carbon Dioxide 29.0 mmol/L (21-32); Chloride 103.0 mmol/L (98-107); Potassium 4.2 mmol/L (3.5-5.1); Sodium 137.0 mmol/L (136-145)
[2025-07-03 06:36] LABS: Blood Urea Nitrogen 30.0 mg/dl (6-23); Creatinine Clr Calc Pharmacy 45.2 ml/min; Glucose 112.0 mg/dl (70-99(Fasting))
[2025-07-03 06:58] LABS: INR 2.1 (0.9-1.1); Prothrombin Time 21.3 Seconds (9.0-12.0)
--- NOTE | 2025-07-03 17:05 | Hospitalist Progress Note ---
Date of Service July 03, 2025 Assessment & Plan (1) Confusion: Plan: 85-year-old female with past medical history significant for type 2 diabetes, CKD stage III, dyslipidemia, diabetic retinopathy, peripheral artery disease, nontoxic multinodular goiter, uncomplicated asthma, hypertension, persistent atrial fibrillation, pulmonary hypertension, osteoporosis, CAD status post CABG, status post pacemaker, osteomyelitis of left foot who lives at home with her and ambulates without support was brought in because of confusion. #Metabolic Encephalopathy #CAP #Left Foot Fifth Digit Osteomyelitis -At home, prior to admission was on IV daptomycin for left foot osteomyelitis as as per started about 5 days ago. As per to cover Corynebacterium -Was changed to Zosyn and vancomycin in ED, doxycycline also added on admission Plan: -appreciate podiatry and ID recommendations -Continue vancomycin with pharmacy dosing guidelines to extend x 4 weeks post-op (end date of 07/24/25)- already has a PICC line -While on vancomycin, please check weekly CBC, BMP, vanco trough, and CRP -Continue wound care and offloading per Podiatry -Follow-upo in ID clinic in 2-4 weeks -mental status improving, likely secondary to delirum and infectyion -resumed aspirin and coumadin #DM Type 2 -Continue home long-acting insulin -Hold p.o. medications -Sliding scale #Sick sinus syndrome -Status post pacemaker CAD Status post CABG -On aspirin, statin, Imdur and metoprolol succinate Hypertension Continue Imdur and metoprolol succinate - resume losartan but decrease dose to 50 mg daily and monitor blood pressure Continue to hold Lasix As patient appears to be on the dry side Chronic diastolic CHF -Holding Lasix A-fib -Failed sotalol. Intolerant to amiodarone -Currently on metoprolol succinate and Coumadin Peripheral artery disease -Follows with vascular surgery -On aspirin and statin History of asthma -Continue home inhalers I spent a total of 40 minutes in direct patient care, including [id number] time with the patient and/or family, reviewing medical records, ordering and reviewing diagnostic tests, and coordinating care with other healthcare providers. This time includes: history taking, physical examination, medical decision making, counseling, ECG interpretation, imaging interpretation, lab interpretation, orders, and education, excluding time spent in the performance of separately billed services. Admission and Anticipated Discharge Date Admission Date: June 24, 2025 Subjective Patient seen and examined at bedside. Patient is doing well today, sitting comfortably in room, walking around room with PT/OT. Review of Systems Review of Systems: CONSTITUTIONAL: Patient denies fevers, chills, sweats and weight changes. EYES: Patient denies any visual symptoms. EARS, NOSE, AND THROAT: No difficulties with hearing. No symptoms of rhinitis or sore throat. CARDIOVASCULAR: Patient denies chest pains, palpitations, orthopnea and par oxysmal nocturnal dyspnea. RESPIRATORY: No dyspnea on exertion, no wheezing or cough. GI: No nausea, vomiting, diarrhea, constipation, abdominal pain, hematochezia or melena. : No urinary hesitancy or dribbling. No nocturia or urinary frequency. No abnormal urethral discharge. MUSCULOSKELETAL: No myalgias or arthralgias. NEUROLOGIC: No chronic headaches, no seizures. Patient denies numbness, tingling or weakness. PSYCHIATRIC: Patient denies problems with mood disturbance. No problems with anxiety. ENDOCRINE: No excessive urination or excessive thirst. DERMATOLOGIC: Patient denies any rashes or skin changes. Physical Exam Physical Exam: Gen: A&O 3 NAD HEENT: NCAT, EOMI, not icteric. External ears normal. No rhinorrhea. Moist mucous membranes. Neck: Supple, full range of motion, no observable masses, No meningeal sign. Lungs: No Respiratory distress. CV: RRR, no edema. Abdomen: Soft, nondistended, No rebound tenderness. MSK: No joint swelling, no redness. Skin: No rashes, petechiae, lesions. Normal color per patient. Neuro: Normal Gait, Grossly intact. Psych: Appropriate for situation. Results & Data Results & Data Vital Signs (Past 12 Hours) Vital Signs Temp Pulse Pulse Resp BP Pulse Ox O2 Del Method 07/03/25 16:52 70 07/03/25 14:31 36.3 C L 73 19 122/60 95 Room Air 07/03/25 11:07 36.6 C 60 20 116/70 94 Room Air 07/03/25 07:15 36.3 C L 68 20 156/87 H 94 Room Air Laboratory Results -personally reviewed, creatinine at baseline, UA unremarkable Medications Administered Acetaminophen (Acetaminophen 325 Mg Tab) 650 mg PO Q4H PRN PRN Reason: Pain or Fever Stop: 07/24/25 02:00 Last Admin: 06/29/25 20:42 Dose: 650 mg Documented By: Admin: 06/29/25 13:30 Dose: 650 mg Documented By: Admin: 06/27/25 14:23 Dose: 650 mg Documented By: Admin: 06/27/25 09:37 Dose: 650 mg Documented By: Admin: 06/25/25 08:15 Dose: 650 mg Documented By: FABIO Albuterol (Albuterol Hfa 8 Gm Inhaler) 2 puffs INH Q6H PRN PRN Reason: Shortness Of Breath Or Wheezing Stop: 07/24/25 02:00 Last Admin: 06/24/25 21:32 Dose: 2 puffs Documented By: EMILIA Aspirin (Aspirin 81 Mg Ectab) 81 mg PO DAILY [facility] Stop: 07/24/25 08:59 Last Admin: 07/03/25 08:13 Dose: 81 mg Documented By: devon Admin: 07/02/25 07:29 Dose: 81 mg Documented By: Admin: 07/01/25 08:10 Dose: 81 mg Documented By: Admin: 06/26/25 13:30 Dose: 81 mg Documented By: Admin: 06/25/25 08:18 Dose: 81 mg Documented By: Admin: 06/24/25 08:40 Dose: 81 mg Documented By: LUDA Cetirizine HCl (Cetirizine Hcl 10 Mg Tablet) 10 mg PO DAILY [facility] Stop: 07/24/25 08:59 Last Admin: 07/03/25 08:13 Dose: 10 mg Documented By: devon Admin: 07/02/25 07:29 Dose: 10 mg Documented By: Admin: 07/01/25 08:12 Dose: 10 mg Documented By: Admin: 06/30/25 08:52 Dose: 10 mg Documented By: Admin: 06/29/25 08:40 Dose: 10 mg Documented By: Admin: 06/28/25 08:27 Dose: 10 mg Documented By: Admin: 06/27/25 09:39 Dose: 10 mg Documented By: Admin: 06/26/25 13:30 Dose: 10 mg Documented By: Admin: 06/25/25 08:17 Dose: 10 mg Documented By: Admin: 06/24/25 08:40 Dose: 10 mg Documented By: LUDA Duloxetine HCl (Duloxetine Hcl 60 Mg Cap) 60 mg PO DAILY LISS Stop: 07/24/25 08:59 Last Admin: 07/03/25 08:12 Dose: 60 mg Documented By: devon Admin: 07/02/25 07:28 Dose: 60 mg Documented By: Admin: 07/01/25 08:11 Dose: 60 mg Documented By: Admin: 06/30/25 08:50 Dose: 60 mg Documented By: Admin: 06/29/25 08:39 Dose: 60 mg Documented By: Admin: 06/28/25 08:24 Dose: 60 mg Documented By: Admin: 06/27/25 09:41 Dose: 60 mg Documented By: Admin: 06/26/25 13:30 Dose: 60 mg Documented By: Admin: 06/25/25 08:17 Dose: 60 mg Documented By: Admin: 06/24/25 08:41 Dose: 60 mg Documented By: LUDA Guaifenesin (Guaifenesin 600 Mg Tabcr) 600 mg PO Q12 LISS Stop: 07/24/25 11:09 Last Admin: 07/03/25 08:13 Dose: 600 mg Documented By: devon Admin: 07/02/25 21:38 Dose: 600 mg Documented By: Admin: 07/02/25 07:29 Dose: 600 mg Documented By: Admin: 07/01/25 20:51 Dose: 600 mg Documented By: Admin: 07/01/25 08:12 Dose: 600 mg Documented By: Admin: 06/30/25 20:29 Dose: 600 mg Documented By: Admin: 06/30/25 08:52 Dose: 600 mg Documented By: Admin: 06/29/25 20:44 Dose: 600 mg Documented By: Admin: 06/29/25 08:40 Dose: 600 mg Documented By: Admin: 06/28/25 20:48 Dose: 600 mg Documented By: Admin: 06/28/25 08:27 Dose: 600 mg Documented By: Admin: 06/27/25 20:40 Dose: 600 mg Documented By: Admin: 06/27/25 09:40 Dose: 600 mg Documented By: Admin: 06/26/25 21:23 Dose: 600 mg Documented By: Admin: 06/26/25 13:30 Dose: 600 mg Documented By: Admin: 06/25/25 19:56 Dose: 600 mg Documented By: Admin: 06/25/25 10:27 Dose: 600 mg Documented By: Admin: 06/24/25 20:41 Dose: 600 mg Documented By: Admin: 06/24/25 11:52 Dose: Not Given Documented By: LUNG PULLER Vancomycin HCl 1,250 mg/ (Sodium Chloride) 275 mls @ 200 mls/hr IV Q24H LISS Stop: 07/24/25 12:00 Last Infusion: 07/03/25 14:23 Dose: Infused Documented By: jrluis carlos Admin: 07/03/25 12:49 Dose: 200 mls/hr Documented By: jrluis carlos Infusion: 07/02/25 14:01 Dose: Infused Documented By: Admin: 07/02/25 12:11 Dose: 200 mls/hr Documented By: Infusion: 07/01/25 13:29 Dose: Infused Documented By: Admin: 07/01/25 12:06 Dose: 200 mls/hr Documented By: Infusion: 06/30/25 14:08 Dose: Infused Documented By: Admin: 06/30/25 12:28 Dose: 200 mls/hr Documented By: Infusion: 06/29/25 15:42 Dose: Infused Documented By: Admin: 06/29/25 14:12 Dose: 200 mls/hr Documented By: Infusion: 06/28/25 14:29 Dose: Infused Documented By: Admin: 06/28/25 12:59 Dose: 200 mls/hr Documented By: Infusion: 06/27/25 19:35 Dose: Infused Documented By: Admin: 06/27/25 12:23 Dose: 200 mls/hr Documented By: Infusion: 06/26/25 14:45 Dose: Infused Documented By: Admin: 06/26/25 13:22 Dose: 200 mls/hr Documented By: Infusion: 06/25/25 13:46 Dose: Infused Documented By: Admin: 06/25/25 12:13 Dose: 200 mls/hr Documented By: Infusion: 06/24/25 14:41 Dose: Infused Documented By: LUNG PULLER Admin: 06/24/25 12:59 Dose: 200 mls/hr Documented By: LUNG PULLER Insulin Aspart (Insulin Aspart Per Unit Charge) 0 units SC ACHS LISS Stop: 07/24/25 07:29 Last Admin: 07/03/25 12:44 Dose: 10 units Documented By: devon Co-signed By: WILFRID Admin: 07/03/25 08:52 Dose: 5 units Documented By: devon Co-signed By: VISHAL Admin: 07/02/25 21:39 Dose: 3 units Documented By: PATIENCE Co-signed By: KIMMY Admin: 07/02/25 17:22 Dose: 10 units Documented By: LAN Co-signed By: Admin: 07/02/25 12:11 Dose: 8 units Documented By: LAN Co-signed By: VISHAL Admin: 07/02/25 08:38 Dose: 5 units Documented By: LAN Co-signed By: Admin: 07/01/25 20:52 Dose: 5 units Documented By: CECELIA Co-signed By: SHAD Admin: 07/01/25 17:00 Dose: 7 units Documented By: CRISTEL Co-signed By: AMINA Admin: 07/01/25 12:05 Dose: 7 units Documented By: EDUARDO Co-signed By: AMINA Admin: 07/01/25 08:09 Dose: 3 units Documented By: EDUARDO Co-signed By: AMINA Admin: 06/30/25 20:28 Dose: 4 units Documented By: CECELIA Co-signed By: SHAD Admin: 06/30/25 17:08 Dose: 8 units Documented By: EDUARDO Co-signed By: AMINA Admin: 06/30/25 12:27 Dose: 9 units Documented By: EDUARDO Co-signed By: AMINA Admin: 06/30/25 08:48 Dose: 5 units Documented By: EDUARDO Co-signed By: AMINA Admin: 06/29/25 20:43 Dose: 1 units Documented By: CECELIA Co-signed By: SHAD Admin: 06/29/25 17:38 Dose: 12 units Documented By: EBONY Co-signed By: AMINA Admin: 06/29/25 12:29 Dose: 7 units Documented By: EBONY Co-signed By: VISHAL Admin: 06/29/25 08:47 Dose: 4 units Documented By: EBONY Co-signed By: LCS Admin: 06/28/25 20:48 Dose: 5 units Documented By: SMW Co-signed By: KRT Admin: 06/28/25 17:16 Dose: 8 units Documented By: EBONY Co-signed By: WRS Admin: 06/28/25 12:53 Dose: 10 units Documented By: CHANAN Co-signed By: LCS Admin: 06/28/25 08:45 Dose: 1 units Documented By: EBONY Co-signed By: LCS Admin: 06/27/25 20:39 Dose: 6 units Documented By: GABBYW Co-signed By: KRT Admin: 06/27/25 18:04 Dose: 11 units Documented By: MTP Co-signed By: LCS Admin: 06/27/25 12:17 Dose: 10 units Documented By: MTP Co-signed By: DTT Admin: 06/27/25 09:35 Dose: 3 units Documented By: MTP Co-signed By: LCS Admin: 06/26/25 21:22 Dose: 4 units Documented By: GABBYW Co-signed By: SHAD Admin: 06/26/25 16:55 Dose: 7 units Documented By: Co-signed By: JEMAL Admin: 06/26/25 14:34 Dose: Not Given Documented By: Admin: 06/26/25 06:11 Dose: Not Given Documented By: Admin: 06/25/25 20:13 Dose: 2 units Documented By: CARMEN Co-signed By: AMS Admin: 06/25/25 16:51 Dose: 4 units Documented By: FABIO Co-signed By: VISHAL Admin: 06/25/25 12:10 Dose: 7 units Documented By: FABIO Co-signed By: CRISTEL Admin: 06/25/25 08:16 Dose: 2 units Documented By: FABIO Co-signed By: DTT Admin: 06/24/25 20:41 Dose: 4 units Documented By: EMILIA Co-signed By: ASM Admin: 06/24/25 17:58 Dose: 5 units Documented By: FABIO Co-signed By: FRANCISCO Admin: 06/24/25 13:29 Dose: Not Given Documented By: LUNG PULLER Admin: 06/24/25 08:03 Dose: Not Given Documented By: KEScout Insulin Glargine (Lantus Per Unit Charge) 23 units SQ DAILY LISS Stop: 10/02/25 08:59 Last Admin: 07/03/25 08:51 Dose: 23 units Documented By: devon Co-signed By: VISHAL Admin: 07/02/25 08:38 Dose: 23 units Documented By: LAN Co-signed By: Admin: 07/01/25 08:10 Dose: 23 units Documented By: EDUARDO Co-signed By: AMINA Admin: 06/30/25 08:49 Dose: 23 units Documented By: EDUARDO Co-signed By: AMINA Admin: 06/29/25 08:47 Dose: 23 units Documented By: EBONY Co-signed By: AMINA Admin: 06/28/25 08:45 Dose: 23 units Documented By: EBONY Co-signed By: AMINA Admin: 06/27/25 09:36 Dose: 23 units Documented By: JANINE Co-signed By: AMINA Admin: 06/26/25 10:40 Dose: Not Given Documented By: Admin: 06/25/25 08:16 Dose: 23 units Documented By: FABIO Co-signed By: RAVINDRA Admin: 06/24/25 08:46 Dose: 23 units Documented By: LUDA Co-signed By: APARNA Isosorbide Mononitrate (Isosorbide [place] Extended Rel 30 Mg Tabcr) 30 mg PO DAILY LISS Stop: 07/24/25 08:59 Last Admin: 07/03/25 08:13 Dose: 30 mg Documented By: devon Admin: 07/02/25 07:29 Dose: 30 mg Documented By: Admin: 07/01/25 08:11 Dose: 30 mg Documented By: Admin: 06/30/25 08:51 Dose: 30 mg Documented By: Admin: 06/29/25 08:42 Dose: 30 mg Documented By: Admin: 06/28/25 08:26 Dose: 30 mg Documented By: Admin: 06/27/25 09:39 Dose: 30 mg Documented By: Admin: 06/26/25 13:29 Dose: 30 mg Documented By: Admin: 06/25/25 08:17 Dose: 30 mg Documented By: Admin: 06/24/25 08:41 Dose: 30 mg Documented By: LUDA Lactobacillus Acidophilus (Advanced Probiotic 625 Mg Capsule) 1,250 mg PO DAILY LISS Stop: 07/26/25 08:59 Last Admin: 07/03/25 08:12 Dose: 1,250 mg Documented By: devon Admin: 07/02/25 07:28 Dose: 1,250 mg Documented By: Admin: 07/01/25 08:11 Dose: 1,250 mg Documented By: Admin: 06/30/25 08:51 Dose: 1,250 mg Documented By: Admin: 06/29/25 08:40 Dose: 1,250 mg Documented By: Admin: 06/28/25 08:24 Dose: 1,250 mg Documented By: Admin: 06/27/25 09:40 Dose: 1,250 mg Documented By: Admin: 06/26/25 14:27 Dose: 1,250 mg Documented By: Losartan Potassium (Losartan Potassium 50 Mg Tab) 50 mg PO QAM LISS Stop: 07/30/25 08:59 Last Admin: 07/03/25 08:13 Dose: 50 mg Documented By: devon Admin: 07/02/25 07:29 Dose: 50 mg Documented By: Admin: 07/01/25 08:12 Dose: 50 mg Documented By: Admin: 06/30/25 08:50 Dose: 50 mg Documented By: EDUARDO Metoprolol Succinate (Metoprolol Succ 50mg Ext Rel Tab) 150 mg PO BID LISS Stop: 07/24/25 08:59 Last Admin: 07/03/25 08:14 Dose: 150 mg Documented By: devon Admin: 07/02/25 21:38 Dose: 150 mg Documented By: Admin: 07/02/25 07:28 Dose: 150 mg Documented By: Admin: 07/01/25 20:51 Dose: 150 mg Documented By: Admin: 07/01/25 08:12 Dose: 150 mg Documented By: Admin: 06/30/25 20:29 Dose: 150 mg Documented By: Admin: 06/30/25 08:51 Dose: 150 mg Documented By: Admin: 06/29/25 20:44 Dose: 150 mg Documented By: Admin: 06/29/25 08:39 Dose: 150 mg Documented By: Admin: 06/28/25 20:51 Dose: 150 mg Documented By: Admin: 06/28/25 08:26 Dose: 150 mg Documented By: Admin: 06/27/25 20:40 Dose: 150 mg Documented By: Admin: 06/27/25 09:38 Dose: 150 mg Documented By: Admin: 06/26/25 21:31 Dose: 150 mg Documented By: SMDayanara Admin: 06/26/25 13:29 Dose: 150 mg Documented By: Admin: 06/25/25 19:55 Dose: 150 mg Documented By: Admin: 06/25/25 08:17 Dose: 150 mg Documented By: Admin: 06/24/25 20:41 Dose: 150 mg Documented By: Admin: 06/24/25 08:40 Dose: 150 mg Documented By: LUDA Montelukast Sodium (Montelukast Sodium 10 Mg Tablet) 10 mg PO DAILY LISS Stop: 07/24/25 08:59 Last Admin: 07/03/25 08:12 Dose: 10 mg Documented By: devon Admin: 07/02/25 07:29 Dose: 10 mg Documented By: Admin: 07/01/25 08:12 Dose: 10 mg Documented By: Admin: 06/30/25 08:52 Dose: 10 mg Documented By: Admin: 06/29/25 08:41 Dose: 10 mg Documented By: Admin: 06/28/25 08:28 Dose: 10 mg Documented By: Admin: 06/27/25 09:37 Dose: 10 mg Documented By: Admin: 06/26/25 13:29 Dose: 10 mg Documented By: Admin: 06/25/25 08:18 Dose: 10 mg Documented By: Admin: 06/24/25 08:40 Dose: 10 mg Documented By: LUDA Nystatin (Nystatin Powder 15gm Btl) 1 appln EXT BID LISS Stop: 07/26/25 05:59 Last Admin: 07/03/25 08:11 Dose: 1 appln Documented By: devon Admin: 07/02/25 22:43 Dose: 1 appln Documented By: Admin: 07/02/25 12:10 Dose: Not Given Documented By: Admin: 07/01/25 20:52 Dose: 1 appln Documented By: Admin: 07/01/25 08:13 Dose: 1 appln Documented By: Admin: 06/30/25 20:29 Dose: 1 appln Documented By: Admin: 06/30/25 08:52 Dose: 1 appln Documented By: Admin: 06/29/25 20:44 Dose: 1 appln Documented By: Admin: 06/29/25 08:41 Dose: 1 appln Documented By: Admin: 06/28/25 20:50 Dose: 1 appln Documented By: Admin: 06/28/25 08:28 Dose: 1 appln Documented By: Admin: 06/27/25 20:40 Dose: 1 appln Documented By: Admin: 06/27/25 12:19 Dose: 1 appln Documented By: Admin: 06/26/25 21:21 Dose: 1 appln Documented By: Admin: 06/26/25 06:49 Dose: 1 appln Documented By: CARMEN Polyethylene Glycol (Polyethylene (Miralax) 17 Gm Pack) 17 gm PO DAILY PRN PRN Reason: Constipation Stop: 07/24/25 02:00 Last Admin: 07/02/25 07:30 Dose: 17 gm Documented By: LAN Potassium Phosphate (Pot Phosphate Monobasic W/ Sod Tab) 1 tab PO QID LISS Stop: 07/25/25 08:59 Last Admin: 07/03/25 12:52 Dose: 1 tab Documented By: devon Admin: 07/03/25 08:12 Dose: 1 tab Documented By: devon Admin: 07/02/25 21:38 Dose: 1 tab Documented By: Admin: 07/02/25 15:08 Dose: 1 tab Documented By: Admin: 07/02/25 12:11 Dose: 1 tab Documented By: Admin: 07/02/25 07:27 Dose: 1 tab Documented By: Admin: 07/01/25 20:51 Dose: 1 tab Documented By: Admin: 07/01/25 17:01 Dose: 1 tab Documented By: Admin: 07/01/25 12:06 Dose: 1 tab Documented By: Admin: 07/01/25 08:11 Dose: 1 tab Documented By: Admin: 06/30/25 20:29 Dose: 1 tab Documented By: Admin: 06/30/25 17:09 Dose: 1 tab Documented By: Admin: 06/30/25 12:28 Dose: 1 tab Documented By: Admin: 06/30/25 08:51 Dose: 1 tab Documented By: Admin: 06/29/25 20:44 Dose: 1 tab Documented By: Admin: 06/29/25 17:39 Dose: 1 tab Documented By: Admin: 06/29/25 12:29 Dose: 1 tab Documented By: Admin: 06/29/25 08:38 Dose: 1 tab Documented By: Admin: 06/28/25 20:47 Dose: 1 tab Documented By: Admin: 06/28/25 16:28 Dose: 1 tab Documented By: Admin: 06/28/25 12:54 Dose: 1 tab Documented By: Admin: 06/28/25 08:26 Dose: 1 tab Documented By: Admin: 06/27/25 20:40 Dose: 1 tab Documented By: Admin: 06/27/25 18:00 Dose: 1 tab Documented By: Admin: 06/27/25 12:20 Dose: 1 tab Documented By: Admin: 06/27/25 09:38 Dose: 1 tab Documented By: Admin: 06/26/25 21:22 Dose: 1 tab Documented By: Admin: 06/26/25 16:56 Dose: 1 tab Documented By: Admin: 06/26/25 14:34 Dose: Not Given Documented By: Admin: 06/26/25 14:28 Dose: 1 tab Documented By: Admin: 06/25/25 19:56 Dose: 1 tab Documented By: Admin: 06/25/25 16:52 Dose: 1 tab Documented By: Admin: 06/25/25 12:14 Dose: 1 tab Documented By: Admin: 06/25/25 08:16 Dose: 1 tab Documented By: FABIO Rosuvastatin Calcium (Rosuvastatin Calcium 20 Mg Tab) 20 mg PO DAILY LISS Stop: 07/24/25 08:59 Last Admin: 07/03/25 08:12 Dose: 20 mg Documented By: devon Admin: 07/02/25 07:28 Dose: 20 mg Documented By: Admin: 07/01/25 08:11 Dose: 20 mg Documented By: Admin: 06/30/25 08:50 Dose: 20 mg Documented By: Admin: 06/29/25 08:41 Dose: 20 mg Documented By: Admin: 06/28/25 08:27 Dose: 20 mg Documented By: Admin: 06/27/25 09:37 Dose: 20 mg Documented By: Admin: 06/26/25 13:29 Dose: 20 mg Documented By: Admin: 06/25/25 08:18 Dose: 20 mg Documented By: Admin: 06/24/25 08:41 Dose: 20 mg Documented By: LUDA Vitamin D (Cholecalciferol 25 Mcg (1000 Units) Tab) 50 mcg PO DAILY [facility] Stop: 07/24/25 08:59 Last Admin: 07/03/25 08:12 Dose: 50 mcg Documented By: devon Admin: 07/02/25 07:27 Dose: 50 mcg Documented By: Admin: 07/01/25 08:11 Dose: 50 mcg Documented By: Admin: 06/30/25 08:51 Dose: 50 mcg Documented By: Admin: 06/29/25 08:39 Dose: 50 mcg Documented By: Admin: 06/28/25 08:27 Dose: 50 mcg Documented By: Admin: 06/27/25 09:41 Dose: 50 mcg Documented By: Admin: 06/26/25 13:30 Dose: 50 mcg Documented By: Admin: 06/25/25 08:17 Dose: 50 mcg Documented By: Admin: 06/24/25 08:41 Dose: 50 mcg Documented By: LUDA Warfarin Sodium (Warfarin Sod 2 Mg Tab) 2 mg PO [id number] LISS Stop: 07/25/25 15:59 Last Admin: 06/30/25 16:29 Dose: 2 mg Documented By: Admin: 06/25/25 16:52 Dose: 2 mg Documented By: FABIO Warfarin Sodium (Warfarin Sod 1 Mg Tab) 1 mg PO [id number] LISS Stop: 07/24/25 15:59 Last Admin: 07/01/25 15:00 Dose: 1 mg Documented By: Admin: 06/26/25 16:53 Dose: Not Given Documented By: Admin: 06/24/25 16:54 Dose: 1 mg Documented By: FABIO
[2025-07-04 05:59] LABS: Hematocrit (blood only) 35.2 % (37.0-47.0); Hemoglobin 11.9 g/dl (12.0-16.0); Mean Corpuscular Hemoglobin 29.7 pg (25.0-34.0); Mean Corpuscular Volume 87.8 fL (80.0-100.0); Platelet Count 340 K/uL (130-400); RDW Standard Deviation 44.6 fL (36.4-46.3); Red Blood Count 4.01 M/uL (4.20-5.40); White Blood Count 11.58 K/ul (4.8-10.8)
[2025-07-04 06:20] LABS: Anion Gap 7.0 (3-11); Blood Urea Nitrogen 29.0 mg/dl (6-23); Calcium 9.1 mg/dl (8.6-10.3); Carbon Dioxide 26.0 mmol/L (21-32); Chloride 104.0 mmol/L (98-107); Creatinine Clr Calc Pharmacy 40.7 ml/min; Glucose 96.0 mg/dl (70-99(Fasting)); Potassium 4.2 mmol/L (3.5-5.1); Sodium 137.0 mmol/L (136-145)
[2025-07-04 08:18] VITALS: RESP 17
[2025-07-04 11:21] VITALS: BP 128/73; TEMP 97.2; O2SAT 95
--- NOTE | 2025-07-04 11:45 | Discharge Summary ---
Discharge Summary Date of Service July 04, 2025 Principal Dx & Hospital Course #1 = Principal Diagnosis (1) Confusion: 85-year-old female with past medical history significant for type 2 diabetes, CKD stage III, dyslipidemia, diabetic retinopathy, peripheral artery disease, nontoxic multinodular goiter, uncomplicated asthma, hypertension, persistent atrial fibrillation, pulmonary hypertension, osteoporosis, CAD status post CABG, status post pacemaker, osteomyelitis of left foot who lives at home with her and ambulates without support was brought in because of confusion. #Metabolic Encephalopathy #CAP #Left Foot Fifth Digit Osteomyelitis -At home, prior to admission was on IV daptomycin for left foot osteomyelitis as as per started about 5 days ago. As per to cover Corynebacterium -Was changed to Zosyn and vancomycin in ED, doxycycline also added on admission Plan: -appreciate podiatry and ID recommendations -Continue vancomycin with pharmacy dosing guidelines to extend x 4 weeks post-op (end date of 07/24/25)- already has a PICC line -While on vancomycin, please check weekly CBC, BMP, vanco trough, and CRP -Continue wound care and offloading per Podiatry -Follow-upo in ID clinic in 2-4 weeks -mental status improving, likely secondary to delirum and infectyion -resumed aspirin and coumadin #DM Type 2 -Continue home long-acting insulin -Hold p.o. medications -Sliding scale #Sick sinus syndrome -Status post pacemaker CAD Status post CABG -On aspirin, statin, Imdur and metoprolol succinate Hypertension Continue Imdur and metoprolol succinate - resume losartan but decrease dose to 50 mg daily and monitor blood pressure Continue to hold Lasix As patient appears to be on the dry side Chronic diastolic CHF -Holding Lasix A-fib -Failed sotalol. Intolerant to amiodarone -Currently on metoprolol succinate and Coumadin Peripheral artery disease -Follows with vascular surgery -On aspirin and statin History of asthma -Continue home inhalers Notes For Next Care Provider 85-year-old female with past medical history significant for type 2 diabetes, CKD stage III, dyslipidemia, diabetic retinopathy, peripheral artery disease, nontoxic multinodular goiter, uncomplicated asthma, hypertension, persistent atrial fibrillation, pulmonary hypertension, osteoporosis, CAD status post CABG, status post pacemaker, osteomyelitis of left foot who lives at home with her and ambulates without support was brought in because of confusion. Admitted to medicine for confusion. ON medicine, found to have CAP/left foot osteomyelitis. ID consulted, recommended 4 weeks of vancomycin. Mentation improved significantly with treatment of CAP and osteomyelitis. On 07/04/2025 patient medically stable for discharge to SNF per PT/OT recommendations. To do: [ ] per ID: Continue vancomycin with pharmacy dosing guidelines to extend x 4 weeks post-op (end date of 07/24/25)- already has a PICC line, While on vancomycin, please check weekly CBC, BMP, vanco trough, and CRP [ ] f/u with ID outpatient Medication Changes From Visit -see below Admission HPI Per Admitting Provider 85-year-old female with past medical history significant for type 2 diabetes, CKD stage III, dyslipidemia, diabetic retinopathy, peripheral artery disease, nontoxic multinodular goiter, uncomplicated asthma, hypertension, persistent atrial fibrillation, pulmonary hypertension, osteoporosis, CAD status post CABG, status post pacemaker, osteomyelitis of left foot who lives at home with her and ambulates without support was brought in because of confusion. As per about 5 days ago patient was started IV daptomycin for osteomyelitis. Today she was sitting on the chair seemed confused. Not answering. When the decided to bring her to the hospital ,she woke up and resisted. Because of ongoing confusion was brought to the hospital. Currently patient is alert and awake and oriented to name and place. Could tell her age. Could not tell current dates. Patient denies any headache. D enies any chest pain. Denies shortness of breath. She says she always has cough. Denies nausea. Denies abdominal pain. States micturating okay. States moving her bowels okay. Per she also complained of left foot pain. thinks patient had fever. Hemodynamics are okay in the ER. Patient is following with wound care and podiatry for left foot diabetic ulcer. Left foot has osteomyelitis and it was thought that she was high risk for surgery and placed on antibiotics as per the . She had a left lower extremity angiogram and revascularization done by Dr. Grey on 04/07/2025. Supposed to follow-up with Yeni MIJARES in mid of July but seems patient was started on antibiotics daptomycin about 5 days back for 6 weeks. Past medical history as mentioned above. Past surgical history. CABG. Colonoscopy. Left heart catheterization. EGD. Shoulder abscess drained. Injection of lumbosacral spine. Status post dual- chamber pacemaker. Appendectomy. Injection of sacroiliac joint. Excision of soft tissue tumor on the shoulder right side. Total abdominal hysterectomy. Social history. . No smoking. No alcohol use. No drug use. Family history. Paternal aunt had diabetes. Daughter has type 1 diabetes. Mother had heart disorder. Macular degeneration. Paternal uncle had diabetes. Discharge Exam Gen: A&O 3 NAD HEENT: NCAT, EOMI, not icteric. External ears normal. No rhinorrhea. Moist mucous membranes. Neck: Supple, full range of motion, no observable masses, No meningeal sign. Lungs: No Respiratory distress. CV: RRR, no edema. Abdomen: Soft, nondistended, No rebound tenderness. MSK: No joint swelling, no redness. Skin: No rashes, petechiae, lesions. Normal color per patient. Neuro: Normal Gait, Grossly intact. Psych: Appropriate for situation. Updated Medication List Medication Instructions Recorded Confirmed Type albuterol sulfate 90 mcg/actuation 2 inh inhalation Q6H PRN Shortness 06/24/25 06/24/25 History aerosol inhaler Of Breath Or Wheezing aspirin 81 mg tablet,delayed 81 mg PO DAILY 06/24/25 06/24/25 History release cetirizine 10 mg tablet 10 mg PO DAILY 06/24/25 06/24/25 History cholecalciferol (vitamin D3) 50 50 mcg PO DAILY 06/24/25 06/24/25 History mcg (2,000 unit) capsule (Vitamin D3) daptomycin 500 mg intravenous 500 mg IV DAILY 06/24/25 06/24/25 History solution duloxetine 30 mg capsule,delayed 60 mg PO DAILY 06/24/25 06/24/25 History release empagliflozin 25 mg tablet 25 mg PO DAILY 06/24/25 06/24/25 History (Jardiance) furosemide 20 mg tablet 40 mg PO DAILY 06/24/25 06/24/25 History gabapentin 100 mg capsule 200 mg PO DAILY PRN leg pain 06/24/25 06/24/25 History insulin glargine 100 unit/mL (3 23 unit subcut DAILY 06/24/25 06/24/25 History mL) subcutaneous pen ([employer] U-100 Insulin) isosorbide mononitrate 30 mg 30 mg PO DAILY 06/24/25 06/24/25 History tablet,extended release 24 hr losartan 100 mg tablet 100 mg PO DAILY 06/24/25 06/24/25 History metoprolol succinate 50 mg 150 mg PO BID 06/24/25 06/24/25 History tablet,extended release 24 hr montelukast 10 mg tablet 10 mg PO DAILY 06/24/25 06/24/25 History nitroglycerin 0.4 mg sublingual 0.4 mg sublingual UD PRN Chest Pain 06/24/25 06/24/25 History tablet repaglinide 2 mg tablet 2 mg PO TIDWMEAL 06/24/25 06/24/25 History rosuvastatin 20 mg tablet 20 mg PO DAILY 06/24/25 06/24/25 History warfarin 2 mg tablet 2 mg PO UD 06/24/25 06/24/25 History L.acidop,casei,lactis,rham-B.lact,marita 1 cap PO DAILY #30 caps 07/04/25 Rx 625 mg (10 billion cell) capsule (Advanced Probiotic) ondansetron 4 mg disintegrating 4 mg PO Q8H PRN nausea/vomiting 1 07/04/25 Rx tablet week #21 tabs Hospital Stay Data Consultations 06/23/25 21:47 ED Decision to Admit Stat 06/24/25 08:00 Consult Infectious Diseases Routine Consult Podiatry Routine Procedures Performed Operation Date: 06/26/25 10:55 Actual Procedures p Left Fifth Ray Partial Resection(Left) - Js Chamorro DPM Diagnostic Imagining Performed 06/24/25 01:24 CT chest diagnostic wo con Urgent 06/24/25 14:27 CT foot LT w con Routine 06/30/25 13:48 CT head/brain wo con Stat Pending Results Patient Have Any Pending Studies at Discharge: No Discharge Instructions Given to Patient (Per Discharging Provider) Diagnosis: left foot fifth digit osteomyelitis, CAP Follow Ups: podiatry, ID, PCP Incidental Findings: f/u CT imaging in one month to determine need for biopsy of lung nodule 1. Please follow up with PCP, podiatry, ID. 2. Stay hydrated! 3. Finish abx regiment as prescribed. Total Time Total Time Spent Total Time Spent (In Minutes): I spent a total of 35 minutes in direct patient care, including isal-jr-oixy time with the patient and/or family, reviewing medical records, ordering and reviewing diagnostic tests, and coordinating care with other healthcare providers. This time includes: history taking, physical examination, medical decision making, counseling, ECG interpretation, imaging interpretation, lab interpretation, orders, and education, excluding time spent in the performance of separately billed services.
[2025-07-04 13:38] VITALS: PULSE 65
--- NOTE | 2025-07-08 16:45 | Operative Report ---
Post Operative Report Pre & Post Diagnosis Operation Date: 06/26/25 10:55 Pre-Op Diagnosis: OSTEOMYELITIS Post-Op Diagnosis: OSTEOMYELITIS I identified the patient and participated in the time-out.: Yes Procedure Operation Date: 06/26/25 10:55 Actual Procedures p Left Fifth Ray Partial Resection(Left) - Js Chamorro DPM Surgeon Js Chamorro DPM Towel Cabinet Repairer None Estimated Blood Loss 10 Findings Consistent with Post-Op Diagnosis The fifth metatarsal was grossly, acutely osteomyelitic with significant softening at the level of the surgical neck. The remaining bone was noted to be clinically clean with no suspected osteomyelitis remaining after surgical intervention. Specimens Left fifth metatarsal was sent for pathology and proximal margin assessment. 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 She has had wound care for this and has failed to improve with even aggressive wound care. Now, she presented to hospital with worsening confusion and systemic infection. While she had been trying to heal this conservatively, this increase in her symptoms requires more aggressive intervention. We discussed she could attempt IV antibiotics, though surgical dimension is still more definitive. Preoperative instructions, postoperative instructions, relative risks, and outcomes were all discussed at length. Consent was obtained for this left fifth ray partial resection. All questions were answered. Description of Procedure The patient was brought to the operating room placed on the operating table on the supine position. Following menstruation IV sedation, local analgesia was obtained utilizing 20 cc of half percent Marcaine and 1/5 ray block. The left lower extremity was scrubbed, prepped, and draped in the usual aseptic manner. No tourniquet was utilized during the duration of this procedure given her vascular state. Attention was directed to the fifth ray where a tennis racquet shaped incision was made circumferentially around the fifth ray at the proximal third of the metatarsal. The incision was carried down to the level of the bone utilizing sharp and blunt dissection techniques with care taken to cauterize and ligate any superficial bleeding vessels as well as retract any vital neurovascular structures. Once visualized, the fifth metatarsal was noted to be fragmented distally. This was removed as the toe was disarticulated with the distal aspect of the fifth metatarsal. The proximal aspect of the fifth metatarsal was sent in for pathology testing separately with the remainder of the toe and fifth metatarsal head sent for gross pathology. No significant purulent drainage was noted but the bone was overall soft and osteomyelitic. Incision was flushed with copious amounts of sterile saline and closure was performed utilizing 2-0 nylon in a simple interrupted and horizontal mattress alternating suture pattern. The margins of the incision were able to be reapproximated with no significant tension across them given the proximal level of the amputation. Incision was dressed with Xeroform gauze, 4 x 4 gauze, Kerlix, and an Josh wrap. The patient tolerated the procedure well and was transferred to the recovery room with vital signs stable and vascular status intact to the feet. Following postoperative monitoring, the patient will be transferred back to the floor for further assessment and likely discharged to a nursing facility in the next few days. I attest to the content of the Intraoperative Record and any orders documented therein. Any exceptions are noted below.
== END 2025-07-04 13:40 | DRG 853 ==
LOC: ED 19:14 → SUATTDRO 06-24 01:23 → EDINP 06-24 01:23 → 2N 06-24 02:01 → 2S 06-24 16:31